=== PATIENT | female | born 1955 | race African-American/Black ===

== ENCOUNTER 2016-10-09 12:15 | Emergency (ER) | payer MEDICARE, BC ==
[2016-10-09 12:43] VITALS: PULSE 76
[2016-10-09] MEDS ORDERED: SODIUM CHLORIDE 0.9% 1,000 ML IV STA ×2 (13:44→15:40)
[2016-10-09] MEDS ORDERED: AMPICILLIN-SULBACTAM 3 GM in SODIUM CHLORIDE 0.9% 100 ML IVPB STA (13:48)
--- NOTE | 2016-10-09 13:59 | ED ---
General Adult HPI <Saeid Hilton - Last Filed: 10/09/16 14:09> - General Source: patient, RN notes reviewed Mode of arrival: wheelchair Limitations: no limitations <Piero Botello - Last Filed: 10/09/16 14:37> - General Chief complaint: Extremity Problem,Nontraumatic Stated complaint: Arm Swollen Time Seen by Provider: 10/09/16 13:29 - History of Present Illness Initial comments: 61-year-old female seen in the past medical history for dialysis, who presents emergency room today with a chief complaint of possible infection to left forearm. Does admit that recently she had a graft performed in this area just 4 days ago. Patient does admit that she's had increased swelling over the last 2 days. Does admit that it feels warm to the touch. Does admit that she's had decreased she demonstrated hand she believes due to the swelling. Patient does admit that she called her doctor advised come to the emergency room to have it checked. She denies any other complaints or symptoms at this time. Patient denies any recent fever, chills, shortness of breath, chest pain, back pain, abdominal pain, nausea or vomiting, dysuria or hematuria, constipation or diarrhea, headaches or visual changes, or any other complaints. (Piero Botello) Review of Systems ROS Other: All systems not noted in ROS Statement are negative. <Saeid Hilton - Last Filed: 10/09/16 14:09> ROS Other: All systems not noted in ROS Statement are negative. <Piero Botello - Last Filed: 10/09/16 14:37> ROS Statement: Those systems with pertinent positive or pertinent negative responses have been documented in the HPI. Past Medical History Past Medical History: Dementia, Hyperlipidemia, Hypertension, Thyroid Disorder History of Any Multi-Drug Resistant Organisms: None Reported Past Surgical History: Back Surgery, Hysterectomy Additional Past Surgical History / Comment(s): RBKA R/T DM, LEFT TOE AMPUTATION Past Psychological History: Depression Smoking Status: Former smoker Past Alcohol Use History: None Reported Past Drug Use History: None Reported <Piero Botello - Last Filed: 10/09/16 14:37> General Exam <Saeid Hilton - Last Filed: 10/09/16 14:09> Limitations: no limitations <Piero Botello - Last Filed: 10/09/16 14:37> - General Exam Comments Initial Comments: General: The patient is awake and alert, in no distress, and does not appear acutely ill. Eye: Pupils are equal, round and reactive to light, extra-ocular movements are intact. No nystagmus. There is normal conjunctiva bilaterally. No signs of icterus. Ears, nose, mouth and throat: There are moist mucous membranes and no oral lesions. Neck: The neck is supple, there is no tenderness or JVD. Cardiovascular: There is a regular rate and rhythm. No murmur, rub or gallop is appreciated. Respiratory: Lungs are clear to auscultation, respirations are non-labored, breath sounds are equal. No wheezes, stridor, rales, or rhonchi. Musculoskeletal: Normal ROM, no tenderness. Strength 5/5. Sensation intact. Pulses equal bilaterally 2+. Neurological: A&O x 3. CN II-XII intact, There are no obvious motor or sensory deficits. Coordination appears grossly intact. Speech is normal. Skin: Does have some moderate swelling to the volar aspect of the left forearm. Does have increased redness and some redness going to pass forearm up into the medial aspect of the left upper arm. Psychiatric: Cooperative, appropriate mood & affect, normal judgment. (Piero Botello) Medical Decision Making <Saeid Hilton - Last Filed: 10/09/16 14:09> <Piero Botello - Last Filed: 10/09/16 14:37> - Medical Decision Making Medical decision-making. This is a 61-year-old female who had surgery to left forearm, AV fascioletta formation for future dialysis. Surgery was 4 days ago. Today she awakened with a red warm swollen left forearm. Pain with flexion and extension of her fingers and wrist. The plan the patient case was discussed with her surgeon Dr. Smith he wants the patient sent down to the [facility] ER for evaluation management. Dr. Hilton (Saeid Hilton) [facility]. Puentes will accept the patient. Patient is aware the plan. (Piero Botello) Disposition <Saeid Hilton - Last Filed: 10/09/16 14:09> Time of Disposition: 14:20 (Transferred by EMS to [facility]) - Out of Hospital Transfer - Req. Specs Out of Hospital Transfer - Requested Specifics: Other Emergency Center ( [facility]) <Piero Botello - Last Filed: 10/09/16 14:37> Clinical Impression: Cellulitis Disposition: OTHER INSTITUTION NOT DEFINED Condition: Stable Referrals: Nonstaff,Physician [REFERRING] - 1-2 days
[2016-10-09 15:20] LABS: Glucose,Whole Blood 466 mg/dL (75-99)
[2016-10-09] MEDS ORDERED: INSULIN LISPRO (humaLOG) 300 UNIT/3 ML VIAL SQ ONE (15:39)
[2016-10-09 15:43] LABS: Basophils % (A) 1 %; CH 30.6; CHCM 30.9; Eosinophils # (A) 0.2 k/uL (0-0.7); Eosinophils % (A) 3 %; HCT 29.9 % (34.0-46.0); HDW 2.69; HGB 9.3 gm/dL (11.4-16.0); Hypochromasia Slight; Luc # (Auto) 0.14; Luc % (Auto) 2; Lymphocytes # (A) 0.7 k/uL (1.0-4.8); Lymphocytes % (A) 11 %; MCH 30.9 pg (25.0-35.0); MCHC 31.2 g/dL (31.0-37.0); MCV 99.2 fL (80.0-100.0); Mean Platelet Volume 9.1; Monocytes # (A) 0.3 k/uL (0-1.0); Monocytes % (A) 4 %; Neutrophils # (A) 4.8 k/uL (1.3-7.7); Neutrophils % (A) 79 %; RBC 3.01 m/uL (3.80-5.40); RDW 14.5 % (11.5-15.5); WBC 6.1 k/uL (3.8-10.6); WBC (Perox) 6.34
[2016-10-09 15:50] LABS: Calcium 8.6 mg/dL (8.4-10.2); Potassium 5.1 mmol/L (3.5-5.1); Total Bilirubin 0.5 mg/dL (0.2-1.3); Total Protein 5.5 g/dL (6.3-8.2)
[2016-10-09 16:10] VITALS: BP 172/99; RESP 18
[2016-10-09 16:17] VITALS: TEMP 98
[2016-10-09] MEDS ORDERED: AMPICILLIN-SULBACTAM 3 GM in SODIUM CHLORIDE 0.9% 100 ML IVPB SCH (18:00)
== END 2016-10-09 16:10 | disposition other institution (70) ==
LOC: EC 12:15
DX: T81.4XXA Infection following a procedure, initial encounter (principal); Z87.891 Personal history of nicotine dependence
CPT/HCPCS: 36415; 80053; 85025; 87040; 99284; 96365; J0295

== ENCOUNTER 2016-11-01 16:49 | Emergency (ER) | payer MEDICARE, BC ==
--- NOTE | 2016-11-01 17:18 | ED ---
Fall HPI - General Chief Complaint: Fall Stated Complaint: Fall Time Seen by Provider: 11/01/16 17:00 Source: patient, EMS, RN notes reviewed Mode of arrival: EMS - History of Present Illness Initial Comments: Patient is 61-year-old female presents to the emergency room for evaluation of fall injury. Patient states she had dialysis today. Patient states usually after dialysis she feels a little lightheaded. Patient also states she has a right prosthetic leg, so she is a little unsteady on her feet. Patient states she was going up her shelf to grab supplies and she tripped and fell hitting the left side of her head against the cabinet. Patient denies loss of consciousness. Patient states she is having 5 out of 10 headache. Patient states she is slightly dizzy. Patient denies neck pain. Patient denies parasthesias. Patient denies weakness. Patient denies unilateral weakness. Patient denies chest pain or shortness of breath. Patient denies nausea or vomiting. Patient denies any other injuries during incident. Patient states she takes Plavix daily. - Related Data Home Medications Medication Instructions Recorded Confirmed Clopidogrel [Plavix] 75 mg PO DAILY 10/09/16 11/01/16 Insulin Aspart [NovoLOG] See Protocol SQ AC-TID 10/09/16 11/01/16 Insulin Detemir [Levemir Flextouch] 25 units SQ HS 10/09/16 11/01/16 Levothyroxine Sodium [Synthroid] 75 mcg PO DAILY 10/09/16 11/01/16 Metoprolol Tartrate [Lopressor] 50 mg PO DAILY 10/09/16 11/01/16 Pantoprazole [Protonix] 40 mg PO DAILY 10/09/16 11/01/16 Pravastatin Sodium [Pravachol] 20 mg PO HS 10/09/16 11/01/16 amLODIPine [Norvasc] 10 mg PO DAILY 10/09/16 11/01/16 cloNIDine HCL 0.3 mg PO BID 10/09/16 11/01/16 predniSONE 20 mg PO DAILY 10/09/16 11/01/16 B Complex & C No.20/Folic Acid 1 mg PO DAILY 11/01/16 11/01/16 [Nephrocaps Softgel] Pregabalin [Lyrica] 75 mg PO BID 11/01/16 11/01/16 hydrALAZINE HCL [Apresoline] 25 mg PO TID 11/01/16 11/01/16 Allergies Allergy/AdvReac Type Severity Reaction Status Date / Time gabapentin Allergy Rash/Hives Verified 11/01/16 18:13 morphine Allergy Rash/Hives Verified 11/01/16 18:13 lisinopril AdvReac Cough Verified 11/01/16 17:06 Review of Systems ROS Statement: Those systems with pertinent positive or pertinent negative responses have been documented in the HPI. ROS Other: All systems not noted in ROS Statement are negative. Past Medical History Past Medical History: Dementia, Hyperlipidemia, Hypertension, Renal Disease, Thyroid Disorder History of Any Multi-Drug Resistant Organisms: MRSA Date of last positivie culture/infection: 2015 MDRO Source:: rt foot Past Surgical History: Back Surgery, Hysterectomy Additional Past Surgical History / Comment(s): RBKA R/T DM, LEFT TOE AMPUTATION Past Psychological History: Depression Smoking Status: Former smoker Past Alcohol Use History: None Reported Past Drug Use History: None Reported General Exam - General Exam Comments Initial Comments: Laying in exam room, no distress. Limitations: physical limitation General appearance: alert, in no apparent distress Head exam: Present: normocephalic, normal inspection. Absent: atraumatic ( small hematoma over left side of forehead/temporal area) Eye exam: Present: normal appearance, PERRL, EOMI Pupils: Present: normal accommodation ENT exam: Present: normal exam, mucous membranes moist, TM's normal bilaterally , normal external ear exam Neck exam: Present: normal inspection, full ROM. Absent: tenderness, lymphadenopathy Respiratory exam: Present: normal lung sounds bilaterally. Absent: respiratory distress Cardiovascular Exam: Present: regular rate, normal rhythm, normal heart sounds Extremities exam: Present: normal inspection Back exam: Present: normal inspection Neurological exam: Present: alert, oriented X3, CN II-XII intact, normal gait Expanded Patient oriented to: Present: person, place, time Speech: Present: fluid speech Cranial nerves: EOM's Intact: Normal, Facial Sensation: Normal Sensory exam: Upper Extremity Light Touch: Normal, Lower Extremity Light Touch: Normal Motor strength exam: RUE: 5, LUE: 5, RLE: 5, LLE: 5 Psychiatric exam: Present: normal affect, normal mood Skin exam: Present: warm, dry, intact, normal color. Absent: rash Course Vital Signs 11/01/16 11/01/16 11/01/16 16:55 17:50 18:41 Temperature 98.6 F 98.2 F Pulse Rate 81 75 71 Respiratory 16 18 18 Rate Blood Pressure 161/70 158/60 144/65 O2 Sat by Pulse 96 98 99 Oximetry Medical Decision Making - Medical Decision Making Patient is a 61-year-old female presents emergency room for evaluation of head injury. Brain/C-spine CT negative for any acute findings. Patient advised to take Tylenol home as needed and to follow up with primary care provider. Patient has no neuro deficits. Patient states she understands everything that was discussed with her. Return parameters discussed. Case discussed with Dr. Pal. - Radiology Data Radiology results: report reviewed, image reviewed Disposition Clinical Impression: Fall, Closed head injury Disposition: HOME SELF-CARE Condition: Good Instructions: Head Injury (ED) Additional Instructions: Tylenol as needed for headache. Ice on and off for 20 minutes at a time for the next 24-48 hours. Please follow up with primary care provider in 1-2 days. If any new symptom arises or symptoms worsen, return to ER as soon as possible. Referrals: Emma Burciaga MD [Primary Care Provider] - 1-2 days Time of Disposition: 18:20
--- NOTE | 2016-11-01 17:45 | CT ---
EXAMINATION TYPE: CT brain maximiliano head DATE OF EXAM: 11/01/2016 COMPARISON: NONE HISTORY: Right sided frontal injury. Dizziness and headache CT DLP: 1626.7 mGycm Automated exposure control for dose reduction was used. TECHNIQUE: CT scan of the head and cervical spine are performed without contrast. FINDINGS: Ventricles and sulci appear normal for age. There is no mass effect nor midline shift. Th ere is no sign of intracranial hemorrhage. The calvarium is intact. Cervical vertebra normal alignment. There is anterior fusion from C4 to C6. There is multilevel facet arthropathy with joint space narrowing. Skull base is intact. There is no evidence of a fracture. Th ere is degenerative disc space narrowing and spurring from C3 to C7. IMPRESSION: Negative CT scan of the brain. Spondylosis in the cervical spine. Previous surgery. No fracture.
[2016-11-01 17:51] VITALS: RESP 18
[2016-11-01] MEDS ORDERED: ACETAMINOPHEN TAB 500 MG TAB PO STA (18:21)
[2016-11-01 18:42] VITALS: BP 144/65; PULSE 71; TEMP 98.2
== END 2016-11-01 18:43 | disposition home or self-care (01) ==
LOC: EC 16:49
DX: S00.83XA Contusion of other part of head, initial encounter (principal); E78.5 Hyperlipidemia, unspecified; I10 Essential (primary) hypertension; E07.9 Disorder of thyroid, unspecified; Z87.891 Personal history of nicotine dependence; Z79.4 Long term (current) use of insulin; Z79.899 Other long term (current) drug therapy; Z79.52 Long term (current) use of systemic steroids; Z79.02 Long term (current) use of antithrombotics/antiplatelets; Z88.5 Allergy status to narcotic agent; Z88.8 Allergy status to other drugs, medicaments and biological substances; W01.190A Fall on same level from slipping, tripping and stumbling with subsequent striking against furniture, initial encounter
CPT/HCPCS: 70450; 72125; 99284

== ENCOUNTER → 2016-11-21 | Outpatient (CLI) | payer MEDICARE, BC | END | disposition home or self-care (01) | LOC: RADUSWWP 12:21 | PROVIDERS: ATTEND Surgery | DX: M79.602 Pain in left arm (principal); R20.8 Other disturbances of skin sensation; I77.1 Stricture of artery | CPT/HCPCS: 93923 ==

== ENCOUNTER 2017-01-10 16:26 | Inpatient (IN) | payer MEDICARE, BC ==
[2017-01-10 16:48] LABS: Glucose,Whole Blood 388 mg/dL (75-99)
[2017-01-10] MEDS ORDERED: METOCLOPRAMIDE 5 MG/ML 2 ML VIAL IVP STA (17:00)
[2017-01-10] MEDS ORDERED: SODIUM CHLORIDE 0.9% 1,000 ML IV STA (17:00)
[2017-01-10] MEDS ORDERED: HYDROmorphone 1 MG/ML 1 ML SYRINGE IVP STA (17:06)
[2017-01-10] MEDS ORDERED: hydrALAZINE HCL 20 MG/ML 1 ML VIAL IVP STA ×2 (17:09→19:20)
[2017-01-10 17:27] LABS: Basophils % (A) 1 %; CH 30.2; CHCM 31.3; Eosinophils # (A) 0.2 k/uL (0-0.7); Eosinophils % (A) 3 %; HCT 29.9 % (34.0-46.0); HDW 2.55; HGB 9.6 gm/dL (11.4-16.0); Hypochromasia Slight; Luc # (Auto) 0.12; Luc % (Auto) 2; Lymphocytes # (A) 0.6 k/uL (1.0-4.8); Lymphocytes % (A) 11 %; MCHC 32.1 g/dL (31.0-37.0); MCV 96.7 fL (80.0-100.0); Mean Platelet Volume 8.1; Monocytes # (A) 0.3 k/uL (0-1.0); Monocytes % (A) 5 %; Neutrophils % (A) 78 %; RBC 3.09 m/uL (3.80-5.40); RDW 15.8 % (11.5-15.5); VBG PH 7.38 (7.31-7.41); WBC 5.1 k/uL (3.8-10.6); WBC (Perox) 5.27
[2017-01-10 17:36] LABS: Partial Thromboplastin Time 22.5 sec (22.0-30.0); Prothrombin Time 9.8 sec (9.0-12.0)
[2017-01-10 17:37] LABS: Potassium 4.5 mmol/L (3.5-5.1); Total Bilirubin 0.6 mg/dL (0.2-1.3); Total Protein 6.6 g/dL (6.3-8.2)
--- NOTE | 2017-01-10 18:03 | XR ---
EXAMINATION TYPE: XR chest 2V DATE OF EXAM: 01/10/2017 COMPARISON: NONE HISTORY: Nausea and abdominal pain TECHNIQUE: Frontal and lateral views of the chest are obtained. FINDINGS: There is no heart failure nor confluent pneumonic infiltrate. There is right central venou s catheter with the tip in the right atrium. Costophrenic angles are clear. Bony thorax is intact. He art appears enlarged. IMPRESSION: Cardiomegaly. No acute lung disease.
--- NOTE | 2017-01-10 18:05 | XR ---
EXAMINATION TYPE: XR KUB DATE OF EXAM: 01/10/2017 COMPARISON: NONE HISTORY: Hyperglycemia TECHNIQUE: 2 views FINDINGS: There is no sign of intestinal obstruction or pneumoperitoneum. Fecal pattern is normal. Th ere are no pathologic calcifications over the kidneys. There is no sign of a mass. IMPRESSION: Nonacute abdomen.
--- NOTE | 2017-01-10 18:07 | ED ---
General Adult HPI - General Chief complaint: Recheck/Abnormal Lab/Rx Stated complaint: Hyperglycemia Time Seen by Provider: 01/10/17 16:46 Source: patient Mode of arrival: wheelchair Limitations: no limitations - History of Present Illness Initial comments: 61 years old female presented with loss of appetite she threw up multiple times today she said every time she tried to eat something she would drop in her blood pressure has been quite high initially for the last 2 days she has not been able to take her medications because of her blood pressure pills were nonicteric and poor she walked a blood pressure is 200 systolic nausea and vomiting with it for intractable and her sugar was quite high he was 450 today she is also complaining about generalized abdominal discomfort. She also concerned about her infection of the left forearm she had surgery on her left forearm and is seeing posterior its tender and is quite warm - Related Data Home Medications Medication Instructions Recorded Confirmed Clopidogrel [Plavix] 75 mg PO DAILY 10/09/16 01/10/17 Insulin Detemir [Levemir Flextouch] 25 units SQ HS 10/09/16 01/10/17 Levothyroxine Sodium [Synthroid] 75 mcg PO DAILY 10/09/16 01/10/17 Metoprolol Tartrate [Lopressor] 50 mg PO DAILY 10/09/16 01/10/17 Pantoprazole [Protonix] 40 mg PO DAILY 10/09/16 01/10/17 Pravastatin Sodium [Pravachol] 20 mg PO HS 10/09/16 01/10/17 amLODIPine [Norvasc] 10 mg PO DAILY 10/09/16 01/10/17 cloNIDine HCL 0.3 mg PO BID 10/09/16 01/10/17 predniSONE 20 mg PO DAILY 10/09/16 01/10/17 Pregabalin [Lyrica] 75 mg PO BID 11/01/16 01/10/17 hydrALAZINE HCL [Apresoline] 25 mg PO TID 11/01/16 01/10/17 DULoxetine HCL [Cymbalta] 60 mg PO DAILY 01/10/17 01/10/17 HYDROcodone/APAP 5-325MG [[place] 1 tab PO Q6HR PRN 01/10/17 01/10/17 5-325] INSULIN LISPRO (humaLOG) [HumaLOG] See Protocol SQ AC-TID PRN 01/10/17 01/10/17 QUEtiapine [SEROquel] 50 mg PO HS 01/10/17 01/10/17 Allergies Allergy/AdvReac Type Severity Reaction Status Date / Time gabapentin Allergy Rash/Hives Verified 01/10/17 16:45 morphine Allergy Rash/Hives Verified 01/10/17 16:45 lisinopril AdvReac Cough Verified 01/10/17 16:45 Review of Systems ROS Statement: Those systems with pertinent positive or pertinent negative responses have been documented in the HPI. ROS Other: All systems not noted in ROS Statement are negative. Past Medical History Past Medical History: Dementia, Hyperlipidemia, Hypertension, Renal Disease, Thyroid Disorder History of Any Multi-Drug Resistant Organisms: MRSA Date of last positivie culture/infection: 2015 MDRO Source:: rt foot Past Surgical History: Back Surgery, Hysterectomy Additional Past Surgical History / Comment(s): RBKA R/T DM, LEFT TOE AMPUTATION Past Psychological History: Depression Smoking Status: Former smoker Past Alcohol Use History: None Reported Past Drug Use History: None Reported General Exam - General Exam Comments Initial Comments: General: The patient is awake and alert, in moderate distress Skin: Skin is warm and dry and no rashes or lesions are noted. Eye: Pupils are equal, round and reactive to light, extra-ocular movements are intact; there is normal conjunctiva bilaterally. Ears, nose, mouth and throat: mucus membranes are dry, she seems dehydrated. Neck: The neck is supple, there is no tenderness. Cardiovascular: There is a regular rate and rhythm. No murmur, rub or gallop is appreciated. Respiratory: To auscultation bilateral, no wheezing no rhonchi no distress respiratory harris noticed Gastrointestinal: Soft, non-distended, non-tender abdomen without masses or organomegaly noted. There is no rebound or guarding present. Bowel sounds are unremarkable. Back: There is no tenderness to palpation in the midline. There is no obvious deformity. Musculoskeletal: Normal ROM, left forearm seems swollen, tender, erythematous Neurological: CN II-XII intact, no motor or sensory deficits noticed Psychiatric: Cooperative, appropriate mood & affect, normal judgment. Limitations: no limitations Course Vital Signs 01/10/17 01/10/17 01/10/17 16:34 17:28 18:25 Temperature 98.4 F Pulse Rate 86 86 88 Respiratory 18 18 18 Rate Blood Pressure 200/85 203/88 188/74 O2 Sat by Pulse 95 99 99 Oximetry Patient was reassessed at 1800, CBC is within normal range creatinine is absolutely elevated (renal failure. She is a dialysis patient on blood pressure still quite hard with [place] hydralazine accident dropped her blood pressure she is somewhat better as well as nausea and vomiting is concerned I think regular doctor considering her sugar is still being on a prescription for 100 number pressure is about 190 systolic and will put her in the hospital as observation so concerned about left arm swelling left arm swelling normal white count is quite count is not elevated and she is afebrile altogether started on some antibiotics for the left arm cellulitis - Reevaluation(s) Reevaluation #1: 01/10/17 18:53 considering the of possibility of the left forearm forearm and f, graft infection, wound infection will require and do the blood cultures and . grams of Rocephin 2 g IV Medical Decision Making - Lab Data Result diagrams: 01/10/17 17:10 01/10/17 17:10 Lab Results 01/10/17 01/10/17 01/10/17 Range/Units 16:45 17:10 17:10 WBC (3.8-10.6) k/uL RBC (3.80-5.40) m/uL Hgb (11.4-16.0) gm/dL Hct (34.0-46.0) % MCV (80.0-100.0) fL MCH (25.0-35.0) pg MCHC (31.0-37.0) g/dL RDW (11.5-15.5) % Plt Count (150-450) k/uL Neutrophils % % Lymphocytes % % Monocytes % % Eosinophils % % Basophils % % Neutrophils # (1.3-7.7) k/uL Lymphocytes # (1.0-4.8) k/uL Monocytes # (0-1.0) k/uL Eosinophils # (0-0.7) k/uL Basophils # (0-0.2) k/uL Hypochromasia PT (9.0-12.0) sec INR (<1.2) APTT (22.0-30.0) sec VBG pH 7.38 (7.31-7.41) VBG pCO2 48 (37-51) mmHg VBG HCO3 28 (24-28) mmol/L Sodium 138 (137-145) mmol/L Potassium 4.5 (3.5-5.1) mmol/L Chloride 98 (98-107) mmol/L Carbon Dioxide 24 (22-30) mmol/L Anion Gap 16 mmol/L BUN 36 H (7-17) mg/dL Creatinine 4.16 H (0.52-1.04) mg/dL Est GFR (MDRD) Af Amer 13 (>60 ml/min/1.73 sqM) Est GFR (MDRD) Non-Af 11 (>60 ml/min/1.73 sqM) Glucose 453 H* (74-99) mg/dL POC Glucose (mg/dL) 388 H (75-99) mg/dL POC Glu Insurance Counsel ID Olga Gallardo Plasma Lactic Acid James (0.7-2.0) mmol/L Calcium 9.0 (8.4-10.2) mg/dL Total Bilirubin 0.6 (0.2-1.3) mg/dL AST 18 (14-36) U/L ALT 27 (9-52) U/L Alkaline Phosphatase 112 (38-126) U/L Troponin I (0.000-0.034) ng/mL Total Protein 6.6 (6.3-8.2) g/dL Albumin 3.8 (3.5-5.0) g/dL Amylase 41 (30-110) U/L Lipase 49 (23-300) U/L 01/10/17 01/10/17 01/10/17 Range/Units 17:10 17:10 17:10 WBC 5.1 (3.8-10.6) k/uL RBC 3.09 L (3.80-5.40) m/uL Hgb 9.6 L (11.4-16.0) gm/dL Hct 29.9 L (34.0-46.0) % MCV 96.7 (80.0-100.0) fL MCH 31.0 (25.0-35.0) pg MCHC 32.1 (31.0-37.0) g/dL RDW 15.8 H (11.5-15.5) % Plt Count 278 (150-450) k/uL Neutrophils % 78 % Lymphocytes % 11 % Monocytes % 5 % Eosinophils % 3 % Basophils % 1 % Neutrophils # 4.0 (1.3-7.7) k/uL Lymphocytes # 0.6 L (1.0-4.8) k/uL Monocytes # 0.3 (0-1.0) k/uL Eosinophils # 0.2 (0-0.7) k/uL Basophils # 0.0 (0-0.2) k/uL Hypochromasia Slight PT (9.0-12.0) sec INR (<1.2) APTT (22.0-30.0) sec VBG pH (7.31-7.41) VBG pCO2 (37-51) mmHg VBG HCO3 (24-28) mmol/L Sodium (137-145) mmol/L Potassium (3.5-5.1) mmol/L Chloride (98-107) mmol/L Carbon Dioxide (22-30) mmol/L Anion Gap mmol/L BUN (7-17) mg/dL Creatinine (0.52-1.04) mg/dL Est GFR (MDRD) Af Amer (>60 ml/min/1.73 sqM) Est GFR (MDRD) Non-Af (>60 ml/min/1.73 sqM) Glucose (74-99) mg/dL POC Glucose (mg/dL) (75-99) mg/dL POC Glu Insurance Counsel ID Plasma Lactic Acid James 1.0 (0.7-2.0) mmol/L Calcium (8.4-10.2) mg/dL Total Bilirubin (0.2-1.3) mg/dL AST (14-36) U/L ALT (9-52) U/L Alkaline Phosphatase (38-126) U/L Troponin I <0.012 (0.000-0.034) ng/mL Total Protein (6.3-8.2) g/dL Albumin (3.5-5.0) g/dL Amylase (30-110) U/L Lipase (23-300) U/L 01/10/17 01/10/17 Range/Units 17:10 18:06 WBC (3.8-10.6) k/uL RBC (3.80-5.40) m/uL Hgb (11.4-16.0) gm/dL Hct (34.0-46.0) % MCV (80.0-100.0) fL MCH (25.0-35.0) pg MCHC (31.0-37.0) g/dL RDW (11.5-15.5) % Plt Count (150-450) k/uL Neutrophils % % Lymphocytes % % Monocytes % % Eosinophils % % Basophils % % Neutrophils # (1.3-7.7) k/uL Lymphocytes # (1.0-4.8) k/uL Monocytes # (0-1.0) k/uL Eosinophils # (0-0.7) k/uL Basophils # (0-0.2) k/uL Hypochromasia PT 9.8 (9.0-12.0) sec INR 1.0 (<1.2) APTT 22.5 (22.0-30.0) sec VBG pH (7.31-7.41) VBG pCO2 (37-51) mmHg VBG HCO3 (24-28) mmol/L Sodium (137-145) mmol/L Potassium (3.5-5.1) mmol/L Chloride (98-107) mmol/L Carbon Dioxide (22-30) mmol/L Anion Gap mmol/L BUN (7-17) mg/dL Creatinine (0.52-1.04) mg/dL Est GFR (MDRD) Af Amer (>60 ml/min/1.73 sqM) Est GFR (MDRD) Non-Af (>60 ml/min/1.73 sqM) Glucose (74-99) mg/dL POC Glucose (mg/dL) 395 H (75-99) mg/dL POC Glu Insurance Counsel ID Elida Matson Plasma Lactic Acid James (0.7-2.0) mmol/L Calcium (8.4-10.2) mg/dL Total Bilirubin (0.2-1.3) mg/dL AST (14-36) U/L ALT (9-52) U/L Alkaline Phosphatase (38-126) U/L Troponin I (0.000-0.034) ng/mL Total Protein (6.3-8.2) g/dL Albumin (3.5-5.0) g/dL Amylase (30-110) U/L Lipase (23-300) U/L Disposition Clinical Impression: Nausea and vomiting, Hypertension, Left arm cellulitis Disposition: ADMITTED IP TO THIS HOSP Condition: Good Referrals: Nonstaff,Physician [Primary Care Provider] - 1-2 days
[2017-01-10 18:10] LABS: Glucose,Whole Blood 395 mg/dL (75-99)
[2017-01-10] MEDS ORDERED: INSULIN REGULAR 100 UNIT/ML VIAL SQ ONE (18:33)
[2017-01-10] MEDS ORDERED: cefTRIAXone 2,000 MG in SODIUM CHLORIDE 0.9% 100 ML IVPB STA (18:53)
[2017-01-10] MEDS ORDERED: SODIUM CHLORIDE 0.9% 1,000 ML IV ONE (19:06)
[2017-01-10] MEDS ORDERED: HYDROcodone/APAP 5-325MG 1 EACH TAB PO PRN (19:14)
[2017-01-10] MEDS ORDERED: ONDANSETRON 4 MG/2 ML VIAL IVP PRN (19:58)
[2017-01-10] MEDS ORDERED: ACETAMINOPHEN TAB 325 MG TAB PO PRN (19:58)
[2017-01-10] MEDS ORDERED: DOCUSATE 100 MG CAP PO PRN (19:58)
[2017-01-10] MEDS ORDERED: CALCIUM CARBONATE 500 MG CHEWABLE PO PRN (19:58)
[2017-01-10] MEDS ORDERED: NALOXONE 0.4 MG/ML 1 ML VIAL IV PRN (19:58)
[2017-01-10] MEDS ORDERED: ONDANSETRON 4 MG/2 ML VIAL IVP STA (20:10)
[2017-01-10 20:32] LABS: Glucose,Whole Blood 256 mg/dL (75-99)
[2017-01-10] MEDS ORDERED: INSULIN DETEMIR 100 UNIT/ML 10 ML VIAL SQ SCH (21:00)
[2017-01-10] MEDS ORDERED: QUEtiapine 50 MG TAB PO SCH (21:00)
--- NOTE | 2017-01-10 21:02 | P.HPIM ---
History of Present Illness H&P Date: 01/10/17 Chief Complaint: Generalized weakness with nausea and vomiting This is a 61-year-old female with history of long-standing type 2 diabetes mellitus and end-stage renal disease on hemodialysis who presents with complaint of lack of energy, generalized weakness, nausea and vomiting for 2 days. Patient started hemodialysis in April 2016 via right jugular permacath. She still makes urine and urinary urinates approximately 2-3 times a day. Her package handler is Dr. Chu and she receives dialysis Sunday, last hemodialysis was on Sunday and she missed hemodialysis today. She cannot recall how much fluid was removed on Sunday. She used to get dialysis and all medical care at [facility], [place] but in September of this year moved to [place] and since then she is yet to establish care with a primary care physician in the area. She had creation of left upper extremity AV fistula in September 2016 which never matured hence she had AV graft placement in October 2016, AV graft caused steal syndrome for which she underwent vascular intervention [address] [facility], [place] where she usually gets care. Intervention was done via right groin and patient did not experience any pain or drainage or bleeding from that area. She reports that area off left AV graft he has been swollen and tender since intervention. Current symptoms started after dialysis 2 days ago, Sunday. Patient feels nauseous mostly rate by mouth intake and to up couple of times food and fluid she tried to eat. Denies any abdominal pain. She has had constipation that resolved today with enema. Patient denies any fever chills or night sweats. She denies any blood or coffee ground emesis. In the past occasionally she would have nausea between food but she was never diagnosed with gastroparesis. She denies any heartburn, dysphagia or odynophagia. No regurgitation of food or sour taste in her mouth. She had a surgery 5 days ago for which she has been placed in [place] which she stopped taking today seems she didn't feel well taking the medication. Currently her symptoms somewhat improved and she would like to try some Jell-O. She denies history of ulcers or EGD in the past. In ED and was found to have blood sugar in 400s unremarkable liver panel and normal lipase. Chest x-ray and abdominal x-ray were unremarkable. Blood pressure has been elevated. She missed hemodialysis today due to her symptoms. Other associated symptoms include dizziness in the form of room spinning when turning her head towards the right side. The symptoms been present for a long time coming and going. She had never had workup for this. She also reports tinnitus in both ears left more than the right. She denies any shortness of breath chest pain hot or cold cold intolerance. Also patient reports high blood pressure is hard to control place to several different medications. Patient was diagnosed with diabetes approximately 20 years ago and currently he is on Levemir 25 units at nighttime and sliding scale on a when necessary basis. She has multiple end organ damage from long-standing diabetes, she has diabetic nephropathy, peripheral vascular disease and neuropathy with resulting right diabetes foot infection requiring amputation 18 months ago in outside institution. At that time she was septic and intensive care unit after which she was discharged to [facility] where she spends 12 months. For unknown reasons to her and that time she was discharged on prednisone 20 mg daily which she due for dose 12 months. Recently her primary care doctor tapered off her prednisone and currently she has been off of prednisone for one month. Patient has tingling and numbness in the left foot and she was told in the past that she has diabetic neuropathy Review of Systems All systems: negative Constitutional: Reports as per HPI, Reports anorexia, Reports fatigue, Reports weakness Cardiovascular: Reports as per HPI, Reports high blood pressure, Denies chest pain Respiratory: Denies cough, Denies dyspnea Gastrointestinal: Reports as per HPI Genitourinary: Denies flank pain, Denies hematuria, Denies nocturia Musculoskeletal: Denies frequent falls, Denies gait dysfunction, Denies hot joints, Denies low back pain Integumentary: Denies rash Neurological: Reports balance difficulties, Reports burning pain, Reports paresthesias, Reports vertigo Psychiatric: Denies depression Endocrine: Reports as per HPI Past Medical History Past Medical History: Dementia, Hyperlipidemia, Hypertension, Renal Disease, Thyroid Disorder History of Any Multi-Drug Resistant Organisms: MRSA Date of last positivie culture/infection: 2015 MDRO Source:: rt foot Past Surgical History: Back Surgery, Hysterectomy Additional Past Surgical History / Comment(s): RBKA R/T DM, LEFT TOE AMPUTATION Past Psychological History: Depression Smoking Status: Former smoker Past Alcohol Use History: None Reported Past Drug Use History: None Reported Medications and Allergies Home Medications Medication Instructions Recorded Confirmed Type Clopidogrel [Plavix] 75 mg PO DAILY 10/09/16 01/10/17 History Insulin Detemir [Levemir Flextouch] 25 units SQ HS 10/09/16 01/10/17 History Levothyroxine Sodium [Synthroid] 75 mcg PO DAILY 10/09/16 01/10/17 History Metoprolol Tartrate [Lopressor] 50 mg PO DAILY 10/09/16 01/10/17 History Pantoprazole [Protonix] 40 mg PO DAILY 10/09/16 01/10/17 History Pravastatin Sodium [Pravachol] 20 mg PO HS 10/09/16 01/10/17 History amLODIPine [Norvasc] 10 mg PO DAILY 10/09/16 01/10/17 History cloNIDine HCL 0.3 mg PO BID 10/09/16 01/10/17 History predniSONE 20 mg PO DAILY 10/09/16 01/10/17 History Pregabalin [Lyrica] 75 mg PO BID 11/01/16 01/10/17 History hydrALAZINE HCL [Apresoline] 25 mg PO TID 11/01/16 01/10/17 History DULoxetine HCL [Cymbalta] 60 mg PO DAILY 01/10/17 01/10/17 History HYDROcodone/APAP 5-325MG [[place] 1 tab PO Q6HR PRN 01/10/17 01/10/17 History 5-325] INSULIN LISPRO (humaLOG) [HumaLOG] See Protocol SQ AC-TID PRN 01/10/17 01/10/17 History QUEtiapine [SEROquel] 50 mg PO HS 01/10/17 01/10/17 History Allergies Allergy/AdvReac Type Severity Reaction Status Date / Time gabapentin Allergy Rash/Hives Verified 01/10/17 16:45 morphine Allergy Rash/Hives Verified 01/10/17 16:45 lisinopril AdvReac Cough Verified 01/10/17 16:45 Physical Exam Vitals: Vital Signs Temp Pulse Resp BP Pulse Ox 01/10/17 19:56 98.6 F 94 16 164/71 96 01/10/17 18:25 88 18 188/74 99 01/10/17 17:28 86 18 203/88 99 01/10/17 16:34 98.4 F 86 18 200/85 95 Intake and Output 01/10/17 01/10/17 01/10/17 06:59 14:59 22:59 Other: Weight 81.647 kg Patient Weight 01/11/17 06:59 Weight 81.647 kg - Constitutional General appearance: cooperative, morbidly obese, no acute distress - EENT Eyes: anicteric sclerae, EOMI, PERRLA ENT: normal oropharynx - Neck Neck: no lymphadenopathy, normal ROM, no thyromegaly - Respiratory Respiratory: bilateral: CTA, negative: dullness, rales, rhonchi, wheezing - Cardiovascular Rhythm: regular Heart sounds: normal: S1, S2 - Gastrointestinal General gastrointestinal: decreased bowel sounds, no distended, no organomegaly , soft, no tenderness - Integumentary Integumentary: no rash - Neurologic Neurologic: CNII-XII intact - Musculoskeletal Musculoskeletal: strength equal bilaterally - Psychiatric Psychiatric: A&O x's 3, appropriate affect, intact judgment & insight Right groin incision well-healed without swelling erythema or drainage Left wrist AV fistula site well healed without drainage or erythema in the field Left cubital AV graft site laterally INCISION tender tense firm with no erythema or warmth and no drainage from the site thrill present Results CBC & Chem 7: 01/10/17 17:10 01/10/17 17:10 Labs: Abnormal Lab Results - Last 24 Hours (Table) 01/10/17 01/10/17 01/10/17 Range/Units 16:45 17:10 17:10 RBC 3.09 L (3.80-5.40) m/uL Hgb 9.6 L (11.4-16.0) gm/dL Hct 29.9 L (34.0-46.0) % RDW 15.8 H (11.5-15.5) % Lymphocytes # 0.6 L (1.0-4.8) k/uL BUN 36 H (7-17) mg/dL Creatinine 4.16 H (0.52-1.04) mg/dL Glucose 453 H* (74-99) mg/dL POC Glucose (mg/dL) 388 H (75-99) mg/dL 01/10/17 Range/Units 18:06 RBC (3.80-5.40) m/uL Hgb (11.4-16.0) gm/dL Hct (34.0-46.0) % RDW (11.5-15.5) % Lymphocytes # (1.0-4.8) k/uL BUN (7-17) mg/dL Creatinine (0.52-1.04) mg/dL Glucose (74-99) mg/dL POC Glucose (mg/dL) 395 H (75-99) mg/dL Chest x-ray: report reviewed, image reviewed Abdominal x-ray: report reviewed, image reviewed Thrombosis Risk Factor Assmnt - DVT/VTE Prophylaxis DVT/VTE Prophylaxis: Pharmacologic Prophylaxis ordered Assessment and Plan (1) Nausea and vomiting Narrative/Plan: Due to hyperglycemia, gastroparesis or effects of hydrocodone Also rule out bacteremia as suntans may present with symptoms this patient described Antiemetics Blood glucose control *Clear liquid diet Blood cultures Status: Acute (2) Type 2 diabetes mellitus with hyperglycemia Narrative/Plan: Restart Levemir Correction[employer] scale insulin A1c ordered in the ED diabetic teaching ajust insulin based on blood glucose and oral intake Status: Acute (3) Hypothyroidism Narrative/Plan: Continue levothyroxine Check TSH, it would be interesting to see if hypothyroidism contributes to her symptoms Status: Acute (4) End stage renal disease on dialysis Narrative/Plan: Consult nephrology Appropriate diet Start Nephrocaps Patient is appropriate which is not listed her home medication and will be further addressed by nephrology Status: Acute (5) Uncontrolled hypertension Narrative/Plan: Obviously will need to be addressed by hemodialysis and optimization of fluid stopped this We will restart list of home medications Status: Acute (6) Debility Narrative/Plan: Physical and occupational therapy ordered Increase activity as tolerated Status: Acute (7) Vertigo Narrative/Plan: Intermittent long-standing Rule out peripheral vertigo-like BPPV or even tinnitus and ear pressure Mnire disease Once feeling better may need further evaluation by ENT Status: Acute (8) Anemia Narrative/Plan: I will order iron studies SUREKHA as per nephrology Status: Acute Time with Patient: Greater than 30
[2017-01-10 21:21] LABS: Hemoglobin A1C 9.4 % (4.2-6.1)
[2017-01-10] MEDS: hydrALAZINE HCL 25 MG TAB PO SCH (21:30)
[2017-01-10] MEDS: PRAVASTATIN SODIUM 20 MG TAB PO SCH (21:31)
[2017-01-10] MEDS: cloNIDine HCL 0.1 MG TAB PO SCH (21:31)
[2017-01-10] MEDS: PREGABALIN 75 MG CAP PO SCH (21:53)
[2017-01-11 03:19] LABS: Glucose,Whole Blood 37 mg/dL (75-99)
[2017-01-11 03:45] LABS: Glucose,Whole Blood 49 mg/dL (75-99)
[2017-01-11 03:55] LABS: Glucose,Whole Blood 100 mg/dL (75-99)
[2017-01-11] MEDS: LEVOTHYROXINE 75 MCG TAB PO SCH (06:08)
[2017-01-11 07:42] LABS: Glucose,Whole Blood 138 mg/dL (75-99)
[2017-01-11] MEDS: INSULIN LISPRO (humaLOG) 300 UNIT/3 ML VIAL SQ SCH ×3 (07:49→17:19)
[2017-01-11] MEDS: amLODIPine 10 MG TAB PO SCH (07:50)
[2017-01-11] MEDS: hydrALAZINE HCL 25 MG TAB PO SCH ×3 (07:51→22:59)
[2017-01-11] MEDS: cloNIDine HCL 0.1 MG TAB PO SCH ×2 (07:51→21:49)
[2017-01-11] MEDS: CLOPIDOGREL 75 MG TAB PO SCH (07:51)
[2017-01-11] MEDS: HEPARIN SODIUM,PORCINE 5,000 UNIT/ML 1 ML VIAL SQ SCH ×2 (07:51→16:52)
[2017-01-11] MEDS: PANTOPRAZOLE 40 MG TABLET PO SCH (07:51)
[2017-01-11] MEDS: DULoxetine HCL 60 MG CAPSULE.DR PO SCH (07:51)
[2017-01-11] MEDS: METOPROLOL TARTRATE 50 MG TAB PO SCH (07:52)
[2017-01-11] MEDS: PREGABALIN 75 MG CAP PO SCH ×2 (07:53→21:57)
[2017-01-11] MEDS ORDERED: predniSONE 20 MG TAB PO SCH (09:00)
[2017-01-11 09:34] LABS: % Iron Saturation 30.6 % (20-50)
[2017-01-11 09:46] VITALS: BMI 28.3
[2017-01-11 10:08] LABS: Glucose,Whole Blood 124 mg/dL (75-99)
[2017-01-11 11:43] LABS: ABG PCO2 48 mmHg (35-45)
[2017-01-11 11:44] LABS: ABG HCO3 29 mmol/L (21-25); ABG PO2 110 mmHg (83-108); ABG TCO2 30 mmol/L (19-24)
--- NOTE | 2017-01-11 11:58 | P.NPCON ---
History of Present Illness - Reason for Consult end stage renal disease - History of Present Illness Reason for consultation: End-stage renal disease History of present illness: Patient is a 61-year-old female seen in renal consultation for end-stage renal disease. She is maintained on hemodialysis on a Sunday schedule. She has a left upper extremity AV graft which was being used but due to steal syndrome the last 2 treatments chest catheter was used. She follows with vascular surgery a lot of smoke from his. Patient has a long-standing history of insulin-dependent diabetes mellitus. She presented to the hospital with nausea and vomiting that started about 2-3 days ago. States she threw up multiple times and was also not able to keep her medications down properly. Her blood pressure was also running high but is well controlled now. Her blood sugars were also running high in the range of 400-500 and was 453 on admission. Better controlled now with most recent blood sugar 124. No fever or chills. Denies chest pain or shortness of breath. No abdominal pain. Patient appears a little lethargic at this time. She did have an ABG done this morning which wasn't suggestive of significant hypercapnic or hypoxic respiratory failure. Vital signs are stable. General: The patient appeared well nourished and normally developed. HEENT: Head exam is unremarkable. Neck is without jugular venous distension. LUNGS: Lungs are clear to auscultation and percussion. Breath sounds decreased. HEART: Rate and Rhythm are regular. First and second heart sounds normal. No murmurs, rubs or gallops. ABDOMEN: Abdominal exam reveals normal bowel sounds. Non-tender and non- distended. No evidence of peritonitis. EXTREMITITES: No clubbing, cyanosis, or edema. 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 neck cervical 4,5,6 fused, right chest permacath for dialysis. Past Psychological History: Depression Smoking Status: Former smoker Past Alcohol Use History: None Reported Past Drug Use History: None Reported - Past Family History Mother Family Medical History: Diabetes Mellitus, Hypertension Additional Family Medical History / Comment(s): colon ca Father Family Medical History: Myocardial Infarction ([place]) Medications and Allergies Home Medications Medication Instructions Recorded Confirmed Type Clopidogrel [Plavix] 75 mg PO DAILY 10/09/16 01/10/17 History Insulin Detemir [Levemir Flextouch] 25 units SQ HS 10/09/16 01/10/17 History Levothyroxine Sodium [Synthroid] 75 mcg PO DAILY 10/09/16 01/10/17 History Metoprolol Tartrate [Lopressor] 50 mg PO DAILY 10/09/16 01/10/17 History Pantoprazole [Protonix] 40 mg PO DAILY 10/09/16 01/10/17 History Pravastatin Sodium [Pravachol] 20 mg PO HS 10/09/16 01/10/17 History amLODIPine [Norvasc] 10 mg PO DAILY 10/09/16 01/10/17 History cloNIDine HCL 0.3 mg PO BID 10/09/16 01/10/17 History predniSONE 20 mg PO DAILY 10/09/16 01/10/17 History Pregabalin [Lyrica] 75 mg PO BID 11/01/16 01/10/17 History hydrALAZINE HCL [Apresoline] 25 mg PO TID 11/01/16 01/10/17 History DULoxetine HCL [Cymbalta] 60 mg PO DAILY 01/10/17 01/10/17 History HYDROcodone/APAP 5-325MG [[place] 1 tab PO Q6HR PRN 01/10/17 01/10/17 History 5-325] INSULIN LISPRO (humaLOG) [HumaLOG] See Protocol SQ AC-TID PRN 01/10/17 01/10/17 History QUEtiapine [SEROquel] 50 mg PO HS 01/10/17 01/10/17 History Allergies Allergy/AdvReac Type Severity Reaction Status Date / Time gabapentin Allergy Rash/Hives Verified 01/10/17 16:45 morphine Allergy Rash/Hives Verified 01/10/17 16:45 lisinopril AdvReac Cough Verified 01/10/17 16:45 Physical Exam Vitals: Vital Signs Temp Pulse Pulse Resp BP BP Pulse Ox 01/11/17 07:00 98.4 F 90 18 138/61 96 01/10/17 23:00 97.9 F 90 14 138/65 95 01/10/17 19:58 95 01/10/17 19:56 98.6 F 94 16 164/71 96 01/10/17 18:25 88 18 188/74 99 01/10/17 17:28 86 18 203/88 99 01/10/17 16:34 98.4 F 86 18 200/85 95 Intake and Output 01/10/17 01/11/17 01/11/17 22:59 06:59 14:59 Other: Voiding Method Bedside Commode Bedside Commode Bedpan Bedpan # Voids 0 Weight 88 kg 89.5 kg 89.5 kg Patient Weight 01/12/17 06:59 Weight 89.5 kg Results - Lab Results Most recent lab results ABG pH 7.40 (7.35-7.45) 01/11/17 11:30 ABG pCO2 48 mmHg (35-45) H 01/11/17 11:30 ABG pO2 110 mmHg (83-108) H 01/11/17 11:30 ABG HCO3 29 mmol/L (21-25) H 01/11/17 11:30 ABG O2 Saturation 98.0 % (94-97) H 01/11/17 11:30 Calcium 9.0 mg/dL (8.4-10.2) 01/10/17 17:10 01/10/17 17:10 01/10/17 17:10 Assessment and Plan Plan: Assessment: #1. End-stage renal disease maintained on hemodialysis on a Sunday schedule. Currently using right IJ catheter. She does have a left upper extremity AV graft. #2. Nausea and vomiting likely related to diabetic gastroparesis. #3. Insulin-dependent diabetes mellitus. #4. Hypertension with chronic kidney disease. Initially high due to gastroparesis flare. Now better controlled. #5. Chronic kidney disease mineral bone disease. #6. Anemia of chronic kidney disease. Iron replete. Plan: Hemodialysis today with goal 1-2 L UF since she missed yesterday's treatment. Another treatment tomorrow per her outpatient schedule. Start Aranesp. Check phosphorus level. Continue to monitor respiratory status closely. Avoid narcotics at this time. Thank you for the consultation. I will continue to follow the patient with you during her hospital stay.
[2017-01-11] MEDS ORDERED: DARBEPOETIN ALFA 40 MCG/0.4 ML SYRINGE SQ SCH (12:00)
[2017-01-11 12:54] LABS: Glucose,Whole Blood 160 mg/dL (75-99)
--- NOTE | 2017-01-11 13:05 | P.PN ---
Subjective Principal diagnosis: Nausea and vomiting Patient is a 61-year-old -[place] female with a history of long- standing diabetes mellitus type 2 insulin controlled, end-stage renal disease on dialysis Sunday, and malignant hypertension who presented with lack of energy generalized weakness and nausea and vomiting. In the ER she underwent an extensive evaluation. Her chest x-ray and abdominal x-ray were negative. She was found to have slightly elevated blood pressure on arrival. She was given a dose of IV Reglan followed by IV Zofran. Arrangements were made for her to be admitted to the general medical floor for further monitoring of her intractable nausea and vomiting. She had missed dialysis on the day of admission due to her weakness and fatigue. Her TSH was within normal limits, her CBC is consistent with anemia but no white blood cell count elevation, urine was ordered but has not been obtained. Her blood sugar was also noted to be in the 400s on admission. She received Lantus and 10 units of IV regular insulin. Her blood sugar then dropped to 37 necessitating intervention. The morning after admission she was feeling "drunk" and felt it may be due to having been given Seroquel. On record review she had not received any Seroquel but had received Reglan. Patient seen and examined at bedside. She denies any chest pain, nausea, vomiting, diarrhea, or constipation. She is still having intermittent left arm pain. She feels "drunk" she states that this is what happens when she takes Seroquel. She is concerned that she may have been given some last night but I assured her she had not. She did miss dialysis yesterday. Objective - Vital Signs Vital signs: Vital Signs Temp 98.4 F 01/11/17 07:00 Pulse 90 01/11/17 07:00 Resp 18 01/11/17 07:00 BP 138/61 01/11/17 07:00 Pulse Ox 96 01/11/17 07:00 Intake & Output 01/10/17 01/11/17 01/11/17 18:59 06:59 18:59 Weight 81.647 kg 89.5 kg 89.5 kg Other: Voiding Method Bedside Commode Bedside Commode Bedpan Bedpan # Voids 0 - Exam General: non toxic, no distress, appears at stated age Derm: no rashes, no lesions Head: atraumatic, normocephalic, symmetric Eyes: EOMI, no lid lag, anicteric sclera ENT: no post nasal drip, no thrush Mouth: no lip lesion, mucus membranes moist Cardiovascular: S1S2 reg, no murmur, positive posterior tibial pulse bilateral, Lungs: Decreased breath sounds bilateral bases, no rhonchi, no rales , no accessory muscle use Abdominal: soft, nontender to palpation, no guarding, no appreciable organomegaly Ext: no gross muscle atrophy, no edema, no contractures, healing laceration to left forearm without purulence or erythema, mild edema to left upper extremity Neuro: CN II-XI grossly intact, no focal neuro deficits Psych: Somnolent, oriented, flat affect - Labs CBC & Chem 7: 01/10/17 17:10 01/10/17 17:10 Labs: Abnormal Lab Results - Last 24 Hours (Table) 01/10/17 01/10/17 01/10/17 Range/Units 16:45 17:10 17:10 RBC 3.09 L (3.80-5.40) m/uL Hgb 9.6 L (11.4-16.0) gm/dL Hct 29.9 L (34.0-46.0) % RDW 15.8 H (11.5-15.5) % Lymphocytes # 0.6 L (1.0-4.8) k/uL ABG pCO2 (35-45) mmHg ABG pO2 (83-108) mmHg ABG HCO3 (21-25) mmol/L ABG Total CO2 (19-24) mmol/L ABG O2 Saturation (94-97) % BUN 36 H (7-17) mg/dL Creatinine 4.16 H (0.52-1.04) mg/dL Glucose 453 H* (74-99) mg/dL POC Glucose (mg/dL) 388 H (75-99) mg/dL Hemoglobin A1c (4.2-6.1) % TIBC (265-497) ug/dL 01/10/17 01/10/17 01/10/17 Range/Units 17:10 18:06 20:28 RBC (3.80-5.40) m/uL Hgb (11.4-16.0) gm/dL Hct (34.0-46.0) % RDW (11.5-15.5) % Lymphocytes # (1.0-4.8) k/uL ABG pCO2 (35-45) mmHg ABG pO2 (83-108) mmHg ABG HCO3 (21-25) mmol/L ABG Total CO2 (19-24) mmol/L ABG O2 Saturation (94-97) % BUN (7-17) mg/dL Creatinine (0.52-1.04) mg/dL Glucose (74-99) mg/dL POC Glucose (mg/dL) 395 H 256 H (75-99) mg/dL Hemoglobin A1c 9.4 H (4.2-6.1) % TIBC (265-497) ug/dL 01/11/17 01/11/17 01/11/17 Range/Units 03:09 03:23 03:48 RBC (3.80-5.40) m/uL Hgb (11.4-16.0) gm/dL Hct (34.0-46.0) % RDW (11.5-15.5) % Lymphocytes # (1.0-4.8) k/uL ABG pCO2 (35-45) mmHg ABG pO2 (83-108) mmHg ABG HCO3 (21-25) mmol/L ABG Total CO2 (19-24) mmol/L ABG O2 Saturation (94-97) % BUN (7-17) mg/dL Creatinine (0.52-1.04) mg/dL Glucose (74-99) mg/dL POC Glucose (mg/dL) 37 L 49 L 100 H (75-99) mg/dL Hemoglobin A1c (4.2-6.1) % TIBC (265-497) ug/dL 01/11/17 01/11/17 01/11/17 Range/Units 07:40 08:18 10:04 RBC (3.80-5.40) m/uL Hgb (11.4-16.0) gm/dL Hct (34.0-46.0) % RDW (11.5-15.5) % Lymphocytes # (1.0-4.8) k/uL ABG pCO2 (35-45) mmHg ABG pO2 (83-108) mmHg ABG HCO3 (21-25) mmol/L ABG Total CO2 (19-24) mmol/L ABG O2 Saturation (94-97) % BUN (7-17) mg/dL Creatinine (0.52-1.04) mg/dL Glucose (74-99) mg/dL POC Glucose (mg/dL) 138 H 124 H (75-99) mg/dL Hemoglobin A1c (4.2-6.1) % TIBC 160 L (265-497) ug/dL 01/11/17 Range/Units 11:30 RBC (3.80-5.40) m/uL Hgb (11.4-16.0) gm/dL Hct (34.0-46.0) % RDW (11.5-15.5) % Lymphocytes # (1.0-4.8) k/uL ABG pCO2 48 H (35-45) mmHg ABG pO2 110 H (83-108) mmHg ABG HCO3 29 H (21-25) mmol/L ABG Total CO2 30 H (19-24) mmol/L ABG O2 Saturation 98.0 H (94-97) % BUN (7-17) mg/dL Creatinine (0.52-1.04) mg/dL Glucose (74-99) mg/dL POC Glucose (mg/dL) (75-99) mg/dL Hemoglobin A1c (4.2-6.1) % TIBC (265-497) ug/dL Assessment and Plan Plan: #Altered mentation -Appears to be secondary to medications including high-dose IV Reglan use -Stat ABG checked and reviewed which was within normal limits with a normal pH -Await urinalysis -Avoid narcotics and sedative agents at this point in time #Diabetes mellitus with hyperglycemia on admission -Hypoglycemic episode overnight, will decrease Levemir by one half as patient still has not been tolerating a diet -Continue with blood sugar checks -Continue with sliding scale insulin -Await hemoglobin A1c #Accelerated hypertension, likely due to diabetic gastroparesis, resolved -Follow blood pressures -Continue with hydralazine, metoprolol #Intractable nausea and vomiting suspect secondary to diabetic gastroparesis -Likely benefit from outpatient gastric emptying study -Zofran as needed for nausea -Avoid any additional doses of Reglan #Anemia likely secondary to chronic renal disease -Follow CBC -Await ferritin Chronic: Dyslipidemia Hypothyroidism Peripheral vascular disease status post amputation DVT prophylaxis: Heparin Discussed with: Patient, Nursing, Dr. Chu Anticipated discharge: 24-[address]: home with home health A total of 45 minutes was spent on the care of this complex patient more than 50 % of the time was spent in counseling and care coordination.
[2017-01-11 13:09] LABS: Hemoglobin A1C 9.6 % (4.2-6.1)
--- NOTE | 2017-01-11 16:18 | P.GSCN ---
History of Present Illness History of present illness: 61-year-old female, patient has history of chronic renal failure and she is having dialysis through the right internal jugular approach from the catheter she came in with history of for nausea vomiting and high blood sugar she is been admitted recently patient had a surgery done on the left arm at [facility] for steal phenomena I was consulted for evaluation of the left arm Patient has history of hypertension diabetes chronic renal failure On examination patient was seen in her room she is having dialysis through the right IJ catheter left arm has AV fistula graft and she has bypass for steal phenomena to the left arm most likely she had a drill procedure patient has a good thrill in the graft incision is healing good at this point no surgical intervention needed patient will follow with the vascular surgeon at [facility] Past Medical History Past Medical History: Diabetes Mellitus, Dialysis, GERD/Reflux, Hyperlipidemia, Hypertension, Memory Impairment, Renal Disease, Thyroid Disorder Additional Past Medical History / Comment(s): dialysis on m,w,f History of Any Multi-Drug Resistant Organisms: MRSA Year Discovered:: 2016 MDRO Source:: rt foot Past Surgical History: Back Surgery, Hysterectomy Additional Past Surgical History / Comment(s): RBKA 01/23/16 R/T DM. neck cervical 4,5,6 fused, right chest permacath for dialysis. Past Psychological History: Depression Smoking Status: Former smoker Past Alcohol Use History: None Reported Past Drug Use History: None Reported - Past Family History Mother Family Medical History: Diabetes Mellitus, Hypertension Additional Family Medical History / Comment(s): colon ca Father Family Medical History: Myocardial Infarction ([place]) Medications and Allergies Home Medications Medication Instructions Recorded Confirmed Type Clopidogrel [Plavix] 75 mg PO DAILY 10/09/16 01/10/17 History Insulin Detemir [Levemir Flextouch] 25 units SQ HS 10/09/16 01/10/17 History Levothyroxine Sodium [Synthroid] 75 mcg PO DAILY 10/09/16 01/10/17 History Metoprolol Tartrate [Lopressor] 50 mg PO DAILY 10/09/16 01/10/17 History Pantoprazole [Protonix] 40 mg PO DAILY 10/09/16 01/10/17 History Pravastatin Sodium [Pravachol] 20 mg PO HS 10/09/16 01/10/17 History amLODIPine [Norvasc] 10 mg PO DAILY 10/09/16 01/10/17 History cloNIDine HCL 0.3 mg PO BID 10/09/16 01/10/17 History predniSONE 20 mg PO DAILY 10/09/16 01/10/17 History Pregabalin [Lyrica] 75 mg PO BID 11/01/16 01/10/17 History hydrALAZINE HCL [Apresoline] 25 mg PO TID 11/01/16 01/10/17 History DULoxetine HCL [Cymbalta] 60 mg PO DAILY 01/10/17 01/10/17 History HYDROcodone/APAP 5-325MG [[place] 1 tab PO Q6HR PRN 01/10/17 01/10/17 History 5-325] INSULIN LISPRO (humaLOG) [HumaLOG] See Protocol SQ AC-TID PRN 01/10/17 01/10/17 History QUEtiapine [SEROquel] 50 mg PO HS 01/10/17 01/10/17 History Allergies Allergy/AdvReac Type Severity Reaction Status Date / Time gabapentin Allergy Rash/Hives Verified 01/10/17 16:45 morphine Allergy Rash/Hives Verified 01/10/17 16:45 lisinopril AdvReac Cough Verified 01/10/17 16:45 Surgical - Exam Vital Signs Temp Pulse Resp BP Pulse Ox 98.4 F 86 18 200/85 95 01/10/17 16:34 01/10/17 16:34 01/10/17 16:34 01/10/17 16:34 01/10/17 16:34 Results - Labs 01/10/17 17:10 01/10/17 17:10 Abnormal Lab Results - Last 24 Hours (Table) 01/10/17 01/10/17 01/10/17 Range/Units 16:45 17:10 17:10 RBC 3.09 L (3.80-5.40) m/uL Hgb 9.6 L (11.4-16.0) gm/dL Hct 29.9 L (34.0-46.0) % RDW 15.8 H (11.5-15.5) % Lymphocytes # 0.6 L (1.0-4.8) k/uL ABG pCO2 (35-45) mmHg ABG pO2 (83-108) mmHg ABG HCO3 (21-25) mmol/L ABG Total CO2 (19-24) mmol/L ABG O2 Saturation (94-97) % BUN 36 H (7-17) mg/dL Creatinine 4.16 H (0.52-1.04) mg/dL Glucose 453 H* (74-99) mg/dL POC Glucose (mg/dL) 388 H (75-99) mg/dL Hemoglobin A1c (4.2-6.1) % TIBC (265-497) ug/dL 01/10/17 01/10/17 01/10/17 Range/Units 17:10 18:06 20:28 RBC (3.80-5.40) m/uL Hgb (11.4-16.0) gm/dL Hct (34.0-46.0) % RDW (11.5-15.5) % Lymphocytes # (1.0-4.8) k/uL ABG pCO2 (35-45) mmHg ABG pO2 (83-108) mmHg ABG HCO3 (21-25) mmol/L ABG Total CO2 (19-24) mmol/L ABG O2 Saturation (94-97) % BUN (7-17) mg/dL Creatinine (0.52-1.04) mg/dL Glucose (74-99) mg/dL POC Glucose (mg/dL) 395 H 256 H (75-99) mg/dL Hemoglobin A1c 9.4 H (4.2-6.1) % TIBC (265-497) ug/dL 01/11/17 01/11/17 01/11/17 Range/Units 03:09 03:23 03:48 RBC (3.80-5.40) m/uL Hgb (11.4-16.0) gm/dL Hct (34.0-46.0) % RDW (11.5-15.5) % Lymphocytes # (1.0-4.8) k/uL ABG pCO2 (35-45) mmHg ABG pO2 (83-108) mmHg ABG HCO3 (21-25) mmol/L ABG Total CO2 (19-24) mmol/L ABG O2 Saturation (94-97) % BUN (7-17) mg/dL Creatinine (0.52-1.04) mg/dL Glucose (74-99) mg/dL POC Glucose (mg/dL) 37 L 49 L 100 H (75-99) mg/dL Hemoglobin A1c (4.2-6.1) % TIBC (265-497) ug/dL 01/11/17 01/11/17 01/11/17 Range/Units 07:40 08:18 08:18 RBC (3.80-5.40) m/uL Hgb (11.4-16.0) gm/dL Hct (34.0-46.0) % RDW (11.5-15.5) % Lymphocytes # (1.0-4.8) k/uL ABG pCO2 (35-45) mmHg ABG pO2 (83-108) mmHg ABG HCO3 (21-25) mmol/L ABG Total CO2 (19-24) mmol/L ABG O2 Saturation (94-97) % BUN (7-17) mg/dL Creatinine (0.52-1.04) mg/dL Glucose (74-99) mg/dL POC Glucose (mg/dL) 138 H (75-99) mg/dL Hemoglobin A1c 9.6 H (4.2-6.1) % TIBC 160 L (265-497) ug/dL 01/11/17 01/11/17 01/11/17 Range/Units 10:04 11:30 12:51 RBC (3.80-5.40) m/uL Hgb (11.4-16.0) gm/dL Hct (34.0-46.0) % RDW (11.5-15.5) % Lymphocytes # (1.0-4.8) k/uL ABG pCO2 48 H (35-45) mmHg ABG pO2 110 H (83-108) mmHg ABG HCO3 29 H (21-25) mmol/L ABG Total CO2 30 H (19-24) mmol/L ABG O2 Saturation 98.0 H (94-97) % BUN (7-17) mg/dL Creatinine (0.52-1.04) mg/dL Glucose (74-99) mg/dL POC Glucose (mg/dL) 124 H 160 H (75-99) mg/dL Hemoglobin A1c (4.2-6.1) % TIBC (265-497) ug/dL Diabetes panel 01/10/17 01/10/17 01/11/17 Range/Units 17:10 17:10 08:18 Sodium 138 (137-145) mmol/L Potassium 4.5 (3.5-5.1) mmol/L Chloride 98 (98-107) mmol/L Carbon Dioxide 24 (22-30) mmol/L BUN 36 H (7-17) mg/dL Creatinine 4.16 H (0.52-1.04) mg/dL Glucose 453 H* (74-99) mg/dL Hemoglobin A1c 9.4 H 9.6 H (4.2-6.1) % Calcium 9.0 (8.4-10.2) mg/dL AST 18 (14-36) U/L ALT 27 (9-52) U/L Alkaline Phosphatase 112 (38-126) U/L Total Protein 6.6 (6.3-8.2) g/dL Albumin 3.8 (3.5-5.0) g/dL Thyroid panel 01/11/17 Range/Units 08:18 TSH 1.880 (0.465-4.680) mIU/L Calcium panel 01/10/17 01/11/17 Range/Units 17:10 08:18 Calcium 9.0 (8.4-10.2) mg/dL Phosphorus 3.8 (2.5-4.5) mg/dL Albumin 3.8 (3.5-5.0) g/dL Pituitary panel 01/10/17 01/11/17 Range/Units 17:10 08:18 Sodium 138 (137-145) mmol/L Potassium 4.5 (3.5-5.1) mmol/L Chloride 98 (98-107) mmol/L Carbon Dioxide 24 (22-30) mmol/L BUN 36 H (7-17) mg/dL Creatinine 4.16 H (0.52-1.04) mg/dL Glucose 453 H* (74-99) mg/dL Calcium 9.0 (8.4-10.2) mg/dL TSH 1.880 (0.465-4.680) mIU/L Adrenal panel 01/10/17 Range/Units 17:10 Sodium 138 (137-145) mmol/L Potassium 4.5 (3.5-5.1) mmol/L Chloride 98 (98-107) mmol/L Carbon Dioxide 24 (22-30) mmol/L BUN 36 H (7-17) mg/dL Creatinine 4.16 H (0.52-1.04) mg/dL Glucose 453 H* (74-99) mg/dL Calcium 9.0 (8.4-10.2) mg/dL Total Bilirubin 0.6 (0.2-1.3) mg/dL AST 18 (14-36) U/L ALT 27 (9-52) U/L Alkaline Phosphatase 112 (38-126) U/L Total Protein 6.6 (6.3-8.2) g/dL Albumin 3.8 (3.5-5.0) g/dL
[2017-01-11] MEDS ORDERED: HEPARIN SODIUM,PORCINE 5,000 UNIT/ML 1 ML VIAL ONE (16:50)
[2017-01-11 17:03] LABS: Glucose,Whole Blood 117 mg/dL (75-99)
[2017-01-11 20:30] LABS: Glucose,Whole Blood 250 mg/dL (75-99)
[2017-01-11] MEDS: INSULIN DETEMIR 100 UNIT/ML 10 ML VIAL SQ SCH (21:47)
[2017-01-11] MEDS: PRAVASTATIN SODIUM 20 MG TAB PO SCH (21:50)
[2017-01-12 03:08] LABS: Glucose,Whole Blood 233 mg/dL (75-99)
[2017-01-12] MEDS: HEPARIN SODIUM,PORCINE 5,000 UNIT/ML 1 ML VIAL SQ SCH ×4 (04:14→23:41)
[2017-01-12] MEDS: LEVOTHYROXINE 75 MCG TAB PO SCH (06:15)
[2017-01-12 07:16] LABS: Glucose,Whole Blood 194 mg/dL (75-99)
[2017-01-12] MEDS: PANTOPRAZOLE 40 MG TABLET PO SCH (07:32)
[2017-01-12] MEDS: INSULIN LISPRO (humaLOG) 300 UNIT/3 ML VIAL SQ SCH ×4 (07:32→21:17)
[2017-01-12] MEDS: DULoxetine HCL 60 MG CAPSULE.DR PO SCH (07:35)
[2017-01-12] MEDS: cloNIDine HCL 0.1 MG TAB PO SCH ×2 (07:35→21:12)
[2017-01-12] MEDS: amLODIPine 10 MG TAB PO SCH (07:35)
[2017-01-12] MEDS: hydrALAZINE HCL 25 MG TAB PO SCH ×3 (07:36→21:11)
[2017-01-12] MEDS: METOPROLOL TARTRATE 50 MG TAB PO SCH (07:36)
[2017-01-12] MEDS: CLOPIDOGREL 75 MG TAB PO SCH (07:36)
[2017-01-12] MEDS: PREGABALIN 75 MG CAP PO SCH ×2 (08:15→21:11)
[2017-01-12 08:21] LABS: Anisocytosis Slight; CH 30.2; CHCM 30.8; HCT 29.1 % (34.0-46.0); HDW 2.41; HGB 9.3 gm/dL (11.4-16.0); Hypochromasia Slight; MCH 31.3 pg (25.0-35.0); MCHC 31.9 g/dL (31.0-37.0); MCV 98.3 fL (80.0-100.0); Macrocytosis Slight; Mean Platelet Volume 7.7; RBC 2.96 m/uL (3.80-5.40); RDW 16.1 % (11.5-15.5); WBC 4.5 k/uL (3.8-10.6)
[2017-01-12 08:32] LABS: Calcium 8.5 mg/dL (8.4-10.2)
--- NOTE | 2017-01-12 10:19 | P.PN ---
Subjective Principal diagnosis: Nausea and vomiting Patient is a 61-year-old -[place] female with a history of long- standing diabetes mellitus type 2 insulin controlled, end-stage renal disease on dialysis Sunday, and malignant hypertension who presented with lack of energy generalized weakness and nausea and vomiting. In the ER she underwent an extensive evaluation. Her chest x-ray and abdominal x-ray were negative. She was found to have slightly elevated blood pressure on arrival. She was given a dose of IV Reglan followed by IV Zofran. Arrangements were made for her to be admitted to the general medical floor for further monitoring of her intractable nausea and vomiting. She had missed dialysis on the day of admission due to her weakness and fatigue. Her TSH was within normal limits, her CBC is consistent with anemia but no white blood cell count elevation, urine was ordered but has not been obtained. Her blood sugar was also noted to be in the 400s on admission. She received Lantus and 10 units of IV regular insulin. Her blood sugar then dropped to 37 necessitating intervention. The morning after admission she was feeling "drunk" and felt it may be due to having been given Seroquel. On record review she had not received any Seroquel but had received Reglan. Her mentation improved throughout the day. She underwent dialysis on 01/11. Her blood sugars improved and were near her baseline. Patient reports that she's been a very brittle diabetic and her blood sugars ranged from 40s to 400s at home. She is currently taking sliding scale insulin and Levemir 25 units at night. She has not seen an publicity person. She has never tried taking Levemir during the day and going to suggest this to her. Her hemoglobin A1c is 9.1 and she is aware that she needs to decrease this. I also believe that she needs to alter her sliding scale so that she is taking approximately 50% of her insulin in short acting and 50% and long acting throughout the day. Patient seen and examined at bedside. Tolerated a diet. No more nausea and vomiting. Feeling better today. Left arm pain has resolved. Objective - Vital Signs Vital signs: Vital Signs Temp 97.4 F L 01/12/17 07:00 Pulse 68 01/12/17 07:00 Resp 14 01/12/17 07:00 BP 137/63 01/12/17 07:00 Pulse Ox 100 01/12/17 07:00 Intake & Output 01/11/17 01/12/17 01/12/17 18:59 06:59 18:59 Intake Total 400 Balance 400 Weight 89.5 kg 89.5 kg Intake: Oral 400 Other: Voiding Method Bedpan Bedpan # Voids 0 0 # Bowel Movements 0 0 - Exam General: non toxic, no distress, appears at stated age Derm: no rashes, no lesions Head: atraumatic, normocephalic, symmetric Eyes: EOMI, no lid lag, anicteric sclera ENT: no post nasal drip, no thrush Mouth: no lip lesion, mucus membranes moist Cardiovascular: S1S2 reg, no murmur, positive posterior tibial pulse bilateral, Lungs: Decreased breath sounds bilateral bases, no rhonchi, no rales , no accessory muscle use Abdominal: soft, nontender to palpation, no guarding, no appreciable organomegaly Ext: no gross muscle atrophy, no edema, no contractures, healing laceration to left forearm without purulence or erythema, mild edema to left upper extremity Neuro: CN II-XI grossly intact, no focal neuro deficits Psych: Alert oriented, flat affect - Labs CBC & Chem 7: 01/12/17 07:39 01/12/17 07:39 Labs: Abnormal Lab Results - Last 24 Hours (Table) 01/11/17 01/11/17 01/11/17 Range/Units 08:18 08:18 10:04 RBC (3.80-5.40) m/uL Hgb (11.4-16.0) gm/dL Hct (34.0-46.0) % RDW (11.5-15.5) % ABG pCO2 (35-45) mmHg ABG pO2 (83-108) mmHg ABG HCO3 (21-25) mmol/L ABG Total CO2 (19-24) mmol/L ABG O2 Saturation (94-97) % Creatinine (0.52-1.04) mg/dL Glucose (74-99) mg/dL POC Glucose (mg/dL) 124 H (75-99) mg/dL Hemoglobin A1c 9.6 H (4.2-6.1) % TIBC 160 L (265-497) ug/dL 01/11/17 01/11/17 01/11/17 Range/Units 11:30 12:51 16:57 RBC (3.80-5.40) m/uL Hgb (11.4-16.0) gm/dL Hct (34.0-46.0) % RDW (11.5-15.5) % ABG pCO2 48 H (35-45) mmHg ABG pO2 110 H (83-108) mmHg ABG HCO3 29 H (21-25) mmol/L ABG Total CO2 30 H (19-24) mmol/L ABG O2 Saturation 98.0 H (94-97) % Creatinine (0.52-1.04) mg/dL Glucose (74-99) mg/dL POC Glucose (mg/dL) 160 H 117 H (75-99) mg/dL Hemoglobin A1c (4.2-6.1) % TIBC (265-497) ug/dL 01/11/17 01/12/17 01/12/17 Range/Units 20:24 03:06 07:11 RBC (3.80-5.40) m/uL Hgb (11.4-16.0) gm/dL Hct (34.0-46.0) % RDW (11.5-15.5) % ABG pCO2 (35-45) mmHg ABG pO2 (83-108) mmHg ABG HCO3 (21-25) mmol/L ABG Total CO2 (19-24) mmol/L ABG O2 Saturation (94-97) % Creatinine (0.52-1.04) mg/dL Glucose (74-99) mg/dL POC Glucose (mg/dL) 250 H 233 H 194 H (75-99) mg/dL Hemoglobin A1c (4.2-6.1) % TIBC (265-497) ug/dL 01/12/17 01/12/17 Range/Units 07:39 07:39 RBC 2.96 L (3.80-5.40) m/uL Hgb 9.3 L (11.4-16.0) gm/dL Hct 29.1 L (34.0-46.0) % RDW 16.1 H (11.5-15.5) % ABG pCO2 (35-45) mmHg ABG pO2 (83-108) mmHg ABG HCO3 (21-25) mmol/L ABG Total CO2 (19-24) mmol/L ABG O2 Saturation (94-97) % Creatinine 4.03 H (0.52-1.04) mg/dL Glucose 191 H (74-99) mg/dL POC Glucose (mg/dL) (75-99) mg/dL Hemoglobin A1c (4.2-6.1) % TIBC (265-497) ug/dL Microbiology - Last 24 Hours (Table) 01/10/17 17:10 Blood Culture - Preliminary Blood No Growth after 24 hours Assessment and Plan Plan: #Altered mentation, resolved #Diabetes mellitus with hyperglycemia on admission and hypoglycemia -A1c 9.1 -We'll switch Levemir to a.m. dosing for home -We will refer to endocrinology on discharge #Accelerated hypertension, likely due to diabetic gastroparesis, resolved -Follow blood pressures -Continue with hydralazine, metoprolol #Intractable nausea and vomiting suspect secondary to diabetic gastroparesis, resolved -Likely benefit from outpatient gastric emptying study -Zofran as needed for nausea -Avoid any additional doses of Reglan #Anemia likely secondary to chronic renal disease -Follow CBC -Await ferritin Chronic: Dyslipidemia Hypothyroidism Peripheral vascular disease status post amputation DVT prophylaxis: Heparin Discussed with: Patient, Nursing, Dr. Chu Anticipated discharge: Anticipate discharge home this afternoon after dialysis if blood sugars remain controlled for her. Anticipated discharge place: home with home health A total of 35 minutes was spent on the care of this complex patient more than 50 % of the time was spent in counseling and care coordination.
[2017-01-12 12:10] LABS: Glucose,Whole Blood 120 mg/dL (75-99)
--- NOTE | 2017-01-12 13:03 | P.PN ---
Subjective Patient is seen in follow-up for end-stage renal disease. She is maintained on hemodialysis on a Sunday schedule via permacath. The AV fistula is being used at this time due to steal syndrome. She is currently resting in bed. Blood sugars are better controlled. Nausea and vomiting have significantly improved. She admits to some burning with urination and is concerned of a UTI. Hemodynamically stable. Vital signs are stable. General: The patient appeared well nourished and normally developed. HEENT: Head exam is unremarkable. Neck is without jugular venous distension. LUNGS: Lungs are clear to auscultation and percussion. Breath sounds decreased. HEART: Rate and Rhythm are regular. First and second heart sounds normal. No murmurs, rubs or gallops. ABDOMEN: Abdominal exam reveals normal bowel sounds. Non-tender and non- distended. No evidence of peritonitis. EXTREMITITES: No clubbing, cyanosis, or edema. Objective - Vital Signs Vital signs: Vital Signs Temp 97.4 F L 01/12/17 07:00 Pulse 68 01/12/17 07:00 Resp 14 01/12/17 07:00 BP 137/63 01/12/17 07:00 Pulse Ox 100 01/12/17 07:00 Intake & Output 01/11/17 01/12/17 01/12/17 18:59 06:59 18:59 Intake Total 400 Balance 400 Weight 89.5 kg 89.5 kg Intake: Oral 400 Other: Voiding Method Bedpan Bedpan # Voids 0 0 # Bowel Movements 0 0 - Labs CBC & Chem 7: 01/12/17 07:39 01/12/17 07:39 Labs: Abnormal Lab Results - Last 24 Hours (Table) 01/11/17 01/11/17 01/11/17 Range/Units 08:18 16:57 20:24 RBC (3.80-5.40) m/uL Hgb (11.4-16.0) gm/dL Hct (34.0-46.0) % RDW (11.5-15.5) % Creatinine (0.52-1.04) mg/dL Glucose (74-99) mg/dL POC Glucose (mg/dL) 117 H 250 H (75-99) mg/dL Hemoglobin A1c 9.6 H (4.2-6.1) % 01/12/17 01/12/17 01/12/17 Range/Units 03:06 07:11 07:39 RBC 2.96 L (3.80-5.40) m/uL Hgb 9.3 L (11.4-16.0) gm/dL Hct 29.1 L (34.0-46.0) % RDW 16.1 H (11.5-15.5) % Creatinine (0.52-1.04) mg/dL Glucose (74-99) mg/dL POC Glucose (mg/dL) 233 H 194 H (75-99) mg/dL Hemoglobin A1c (4.2-6.1) % 01/12/17 01/12/17 Range/Units 07:39 12:04 RBC (3.80-5.40) m/uL Hgb (11.4-16.0) gm/dL Hct (34.0-46.0) % RDW (11.5-15.5) % Creatinine 4.03 H (0.52-1.04) mg/dL Glucose 191 H (74-99) mg/dL POC Glucose (mg/dL) 120 H (75-99) mg/dL Hemoglobin A1c (4.2-6.1) % Microbiology - Last 24 Hours (Table) 01/10/17 17:10 Blood Culture - Preliminary Blood No Growth after 24 hours Assessment and Plan Plan: Assessment: #1. End-stage renal disease maintained on hemodialysis on a Sunday schedule. Currently using right IJ catheter. She does have a left upper extremity AV graft which is currently not being used due to steal syndrome. #2. Nausea and vomiting likely related to diabetic gastroparesis. Improved. #3. Insulin-dependent diabetes mellitus. #4. Hypertension with chronic kidney disease. Initially high due to gastroparesis flare. Now better controlled. #5. Chronic kidney disease mineral bone disease. #6. Anemia of chronic kidney disease. Iron replete. Plan: Hemodialysis today with goal 1-2 L UF. Maintain Aranesp. Continue with anti-emetics. Check UA and urine culture.
[2017-01-12] MEDS ORDERED: HEPARIN SODIUM,PORCINE 5,000 UNIT/ML 1 ML VIAL ONE (13:30)
[2017-01-12 15:10] LABS: Appearance,Urine Turbid (Clear); Bacteria,Urine Moderate /hpf; Bilirubin,Urine 1+ (Negative); Glucose,Urine (UA) 2+ (Negative); Ketones,Urine Trace (Negative); Leukocyte Esterase,Urine Large (Negative); Mucus,Urine Rare /hpf; Nitrite,Urine Negative (Negative); PH, Urine 5.5 (5.0-8.0); Particle Count 29305; Protein,Urine 3+ (Negative); RBC,Urine 12 /hpf (0-5); Specific Gravity,Urine 1.019 (1.001-1.035); Squamous Epithelial Cell,Urine 8 /hpf (0-4); UA Billing (MACRO vs. MICRO) MICRO; WBC,Urine >182 /hpf (0-5)
[2017-01-12] MEDS ORDERED: LEVOFLOXACIN 750 MG TAB PO STA (15:46)
[2017-01-12 17:10] LABS: Glucose,Whole Blood 255 mg/dL (75-99)
[2017-01-12 20:57] LABS: Glucose,Whole Blood 287 mg/dL (75-99)
[2017-01-12] MEDS: INSULIN DETEMIR 100 UNIT/ML 10 ML VIAL SQ SCH (21:12)
[2017-01-12] MEDS: PRAVASTATIN SODIUM 20 MG TAB PO SCH (21:12)
[2017-01-12 22:47] VITALS: PULSE 67
[2017-01-13 02:38] LABS: Glucose,Whole Blood 86 mg/dL (75-99)
[2017-01-13 06:02] LABS: Glucose,Whole Blood 166 mg/dL (75-99)
[2017-01-13] MEDS: LEVOTHYROXINE 75 MCG TAB PO SCH (06:25)
[2017-01-13 07:33] LABS: Glucose,Whole Blood 183 mg/dL (75-99)
[2017-01-13] MEDS: INSULIN LISPRO (humaLOG) 300 UNIT/3 ML VIAL SQ SCH ×2 (07:39→12:31)
[2017-01-13] MEDS: cloNIDine HCL 0.1 MG TAB PO SCH (07:40)
[2017-01-13] MEDS: HEPARIN SODIUM,PORCINE 5,000 UNIT/ML 1 ML VIAL SQ SCH (07:40)
[2017-01-13] MEDS: PANTOPRAZOLE 40 MG TABLET PO SCH (07:40)
[2017-01-13] MEDS: amLODIPine 10 MG TAB PO SCH (07:41)
[2017-01-13] MEDS: CLOPIDOGREL 75 MG TAB PO SCH (07:41)
[2017-01-13] MEDS: DULoxetine HCL 60 MG CAPSULE.DR PO SCH (07:41)
[2017-01-13] MEDS: PREGABALIN 75 MG CAP PO SCH (07:43)
[2017-01-13 07:47] VITALS: BP 125/61; RESP 16; TEMP 97.7
[2017-01-13] MEDS: hydrALAZINE HCL 25 MG TAB PO SCH (09:40)
[2017-01-13] MEDS: METOPROLOL TARTRATE 50 MG TAB PO SCH (09:40)
--- NOTE | 2017-01-13 10:07 | P.DS ---
Providers Date of admission: 01/10/17 19:14 Expected date of discharge: 01/13/17 Attending physician: Tanner Beal MD Consults: 01/10/17 19:06 Consult Physician Stat Consulting Provider: Jc Jaramillo Consult Reason/Comments: Patient had vascular surgery on the left forearm Do you want consulting provider notified?: Yes 01/10/17 20:23 Consult Physician Routine Consulting Provider: Semaj Chu Consult Reason/Comments: ESRD, HD Do you want consulting provider notified?: Yes Primary care physician: Physician Nonstaff - Discharge Diagnosis(es) (1) Intractable vomiting with nausea Current Visit: Yes Status: Acute (2) Anemia Current Visit: Yes Status: Acute Priority: Medium (3) End stage renal disease on dialysis Current Visit: Yes Status: Acute Priority: High (4) Hypothyroidism Current Visit: Yes Status: Acute Priority: Medium (5) Type 2 diabetes mellitus with hyperglycemia Current Visit: Yes Status: Acute Priority: High (6) Uncontrolled hypertension Current Visit: Yes Status: Acute Priority: Medium Hospital Course: Patient is a 61-year-old -[place] female with a history of long- standing diabetes mellitus type 2 insulin controlled, end-stage renal disease on dialysis Sunday, and malignant hypertension who presented with lack of energy generalized weakness and nausea and vomiting. In the ER she underwent an extensive evaluation. Her chest x-ray and abdominal x-ray were negative. She was found to have slightly elevated blood pressure on arrival. She was given a dose of IV Reglan followed by IV Zofran. Arrangements were made for her to be admitted to the general medical floor for further monitoring of her intractable nausea and vomiting. She had missed dialysis on the day of admission due to her weakness and fatigue. Her TSH was within normal limits, her CBC is consistent with anemia but no white blood cell count elevation, urine was ordered but has not been obtained. Her blood sugar was also noted to be in the 400s on admission. She received Lantus and 10 units of IV regular insulin. Her blood sugar then dropped to 37 necessitating intervention. The morning after admission she was feeling "drunk" and felt it may be due to having been given Seroquel. On record review she had not received any Seroquel but had received Reglan. Her mentation improved throughout the day. She underwent dialysis on 01/11. Her blood sugars improved and were near her baseline. Patient reports that she's been a very brittle diabetic and her blood sugars ranged from 40s to 400s at home. She is currently taking sliding scale insulin and Levemir 25 units at night. She has not seen an retail cosmetics sales beauty advisor. She has never tried taking Levemir during the day and she is willing to try this on discharge. Her hemoglobin A1c is 9.1 and she is aware that she needs to decrease this. She was concerned that she may have a urinary tract infection, and urinalysis to confirm this. Were not able to obtain culture secondary to her being a dialysis patient and not creating much urine. Her blood sugars remain suboptimally controlled for her. She reports that she feels symptomatic when her blood sugar is less than 150. She developed the family life educator. She is going try to follow up with Dr. Whaley. We are actually going to decrease her Levemir slightly to prevent her from becoming glycemic. She did have critical hypoglycemia during her hospitalization with blood sugar of 37. She reports frequent nighttime awakenings with her blood sugar being this low. Despite her A1c being 9.1 her risk of hypoglycemia outweighs the risks with her A1c of 9.1. She will try moving her Levemir to the morning and take 20 units plus her sliding scale. She is going to make a log to bring with her to her primary care physician appointment and her appointment with retail cosmetics sales beauty advisor. She was doing well and her sugars were controlled. She is determined stable for discharge home. She was placed on Levaquin and will take this every 48 hours 4 doses. Patient seen and examined at bedside. No chest pain, shortness of breath, nausea, vomiting. She has chronic constipation. She is feeling better than yesterday. Vital signs reviewed and stable. General: non toxic, no distress, appears at stated age Derm: no rashes, no lesions Head: atraumatic, normocephalic, symmetric Eyes: EOMI, no lid lag, anicteric sclera ENT: no post nasal drip, no thrush Mouth: no lip lesion, mucus membranes moist Cardiovascular: S1S2 reg, no murmur, positive posterior tibial pulse left, Lungs: CTA bilateral, no rhonchi, no rales , no accessory muscle use Abdominal: soft, nontender to palpation, no guarding, no appreciable organomegaly Ext: no gross muscle atrophy, no edema, no contractures Neuro: CN II-XI grossly intact, no focal neuro deficits Psych: Alert, oriented, appropriate affect A total of 37 minutes of time were spent preparing this complex discharge summary . Pertinent Studies: Chest x-ray: Negative KUB: Negative Procedures: None Patient Condition at Discharge: Good Plan - Discharge Summary New Discharge Prescriptions: New Insulin Detemir [Levemir Flextouch] 20 units SQ QAM #5 ml Levofloxacin [Levaquin] 500 mg PO Q48H #4 tab Continue Pantoprazole [Protonix] 40 mg PO DAILY Levothyroxine Sodium [Synthroid] 75 mcg PO DAILY Clopidogrel [Plavix] 75 mg PO DAILY cloNIDine HCL 0.3 mg PO BID amLODIPine [Norvasc] 10 mg PO DAILY Metoprolol Tartrate [Lopressor] 50 mg PO DAILY Pravastatin Sodium [Pravachol] 20 mg PO HS Pregabalin [Lyrica] 75 mg PO BID hydrALAZINE HCL [Apresoline] 25 mg PO TID HYDROcodone/APAP 5-325MG [Redfield 5-325] 1 tab PO Q6HR PRN PRN Reason: Pain DULoxetine HCL [Cymbalta] 60 mg PO DAILY INSULIN LISPRO (humaLOG) [humaLOG (formulary)] See Protocol SQ AC-TID PRN PRN Reason: Blood Pressure - High Changed Insulin Detemir [Levemir Flextouch] 25 units SQ QAM #5 Discontinued predniSONE 20 mg PO DAILY QUEtiapine [SEROquel] 50 mg PO HS Discharge Medication List Clopidogrel [Plavix] 75 mg PO DAILY 10/09/16 [History] Levothyroxine Sodium [Synthroid] 75 mcg PO DAILY 10/09/16 [History] Metoprolol Tartrate [Lopressor] 50 mg PO DAILY 10/09/16 [History] Pantoprazole [Protonix] 40 mg PO DAILY 10/09/16 [History] Pravastatin Sodium [Pravachol] 20 mg PO HS 10/09/16 [History] amLODIPine [Norvasc] 10 mg PO DAILY 10/09/16 [History] cloNIDine HCL 0.3 mg PO BID 10/09/16 [History] Pregabalin [Lyrica] 75 mg PO BID 11/01/16 [History] hydrALAZINE HCL [Apresoline] 25 mg PO TID 11/01/16 [History] DULoxetine HCL [Cymbalta] 60 mg PO DAILY 01/10/17 [History] HYDROcodone/APAP 5-325MG [Redfield 5-325] 1 tab PO Q6HR PRN 01/10/17 [History] INSULIN LISPRO (humaLOG) [humaLOG (formulary)] See Protocol SQ AC-TID PRN [History] Insulin Detemir [Levemir Flextouch] 25 units SQ QAM #5 01/12/17 [Rx] Insulin Detemir [Levemir Flextouch] 20 units SQ QAM #5 ml 01/13/17 [Rx] Levofloxacin [Levaquin] 500 mg PO Q48H #4 tab 01/13/17 [Rx] Follow up Appointment(s)/Referral(s): [facility], [NON-STAFF] - As Needed Nonstaff,Physician [Primary Care Provider] - 1-2 days Amberly Whaley MD [STAFF PHYSICIAN] - 1 Week Patient Instructions/Handouts: Cellulitis (DC), Type 2 Diabetes in Adults (DC) Activity/Diet/Wound Care/Special Instructions: Renal diet, carb consistent. Small frequent meals. Activity as tolerated. Take blood sugars 3 times daily, make a log, and bring them to your appointment with your primary care provider and Dr. Whaley Please call and make follow up visits that best fit your schedule. If you Cannot make it to [place] to follow up with your family doctor please follow-up with: Ailyn Eaton MD [facility] Physician Specialty: Family Medicine Sub Specialty: pediatric medicine, geriatric medicine Practice Name: [facility] Contact Information [address] [place] [address] Discharge Disposition: HOME WITH HOME HEALTH SERVICES
[2017-01-13 12:04] LABS: Glucose,Whole Blood 259 mg/dL (75-99)
[2017-01-14] MEDS ORDERED: LEVOFLOXACIN 500 MG TAB PO SCH (16:00)
== END 2017-01-13 14:05 | disposition home health service (06) | DRG 637 ==
LOC: EC 16:26 → 4MS4W 19:14
PROVIDERS: ADMIT Hospitalist; ATTEND Hospitalist
PROC: 5A1D60Z (ICD-10-PCS; principal; 2017-01-11)
DX: E11.65 Type 2 diabetes mellitus with hyperglycemia (principal); N18.6 End stage renal disease; K31.84 Gastroparesis; E11.43 Type 2 diabetes mellitus with diabetic autonomic (poly)neuropathy; I12.0 Hypertensive chronic kidney disease with stage 5 chronic kidney disease or end stage renal disease; F03.90 Unspecified dementia, unspecified severity, without behavioral disturbance, psychotic disturbance, mood disturbance, and anxiety; E66.01 Morbid (severe) obesity due to excess calories; E11.649 Type 2 diabetes mellitus with hypoglycemia without coma; L03.114 Cellulitis of left upper limb; N39.0 Urinary tract infection, site not specified; E11.22 Type 2 diabetes mellitus with diabetic chronic kidney disease; E03.9 Hypothyroidism, unspecified; R53.81 Other malaise; R42 Dizziness and giddiness; D63.1 Anemia in chronic kidney disease; E78.5 Hyperlipidemia, unspecified; E11.21 Type 2 diabetes mellitus with diabetic nephropathy; E11.51 Type 2 diabetes mellitus with diabetic peripheral angiopathy without gangrene; H93.19 Tinnitus, unspecified ear; K59.09 Other constipation; M79.602 Pain in left arm; R41.82 Altered mental status, unspecified; T45.0X5A Adverse effect of antiallergic and antiemetic drugs, initial encounter; F32.9 Major depressive disorder, single episode, unspecified; K21.9 Gastro-esophageal reflux disease without esophagitis; Z80.0 Family history of malignant neoplasm of digestive organs; Z82.49 Family history of ischemic heart disease and other diseases of the circulatory system; Z83.3 Family history of diabetes mellitus; Z79.899 Other long term (current) drug therapy; Z79.02 Long term (current) use of antithrombotics/antiplatelets; Z99.2 Dependence on renal dialysis; Z79.4 Long term (current) use of insulin; Z88.8 Allergy status to other drugs, medicaments and biological substances; Z87.891 Personal history of nicotine dependence; Z86.14 Personal history of Methicillin resistant Staphylococcus aureus infection; Z89.511 Acquired absence of right leg below knee; Z89.422 Acquired absence of other left toe(s)
CPT/HCPCS: 36415; 36600; 71020; 74000; 80048; 80053; 81001; 82150; 82728; 82803; 82805; 83036; 83540; 83550; 83605; 83690; 84100; 84443; 84484; 85025; 85027; 85610; 85730; 87040; 90935; 96361; 96365; 96375; 96376; 99285

== ENCOUNTER → 2017-02-06 | Outpatient (CLI) | payer MEDICARE, BC ==
--- NOTE | 2017-02-14 09:27 | P.ARTDOP ---
Arterial Doppler Upper extremity arterial Doppler: Date of service: 02/06/2017 Reason for study: Assess arterial status status post left arm AV fistula. Doppler waveforms: Normal triphasic signals throughout on the right. Triphasic at the left axillary, atypical at the left brachial. Monophasic at the left radial and multiphasic at the left ulnar. Digital plethysmography waveforms on the right are normal. On the left they are essentially flat line. Pressure measurements were not done due to the above findings. Impression: Severe loss of pressure at the left hand secondary either to in for brachial obstructive process or more likely steal phenomenon from AV fistula. Clinical correlation recommended.
== END | disposition home or self-care (01) ==
LOC: RADUSWWP 12:21
PROVIDERS: ATTEND Surgery Vascular Surgery
DX: T82.7XXD Infection and inflammatory reaction due to other cardiac and vascular devices, implants and grafts, subsequent encounter (principal); Z98.890 Other specified postprocedural states
CPT/HCPCS: 93922

== ENCOUNTER 2017-03-11 09:11 | Emergency (ER) | payer MEDICARE, BC, OTHER ==
[2017-03-11] MEDS ORDERED: MECLIZINE 12.5 MG TAB PO STA (09:32)
--- NOTE | 2017-03-11 10:07 | ED ---
Dizziness HPI - General Chief Complaint: Dizziness Stated Complaint: DIZZINESS Time Seen by Provider: 03/11/17 09:32 Source: patient, RN notes reviewed Mode of arrival: wheelchair Limitations: no limitations - History of Present Illness Initial Comments: This is a 61-year-old female with a possible history of vertigo in the past also is a dialysis patient states she had the onset of dizziness about 2 AM. She states she woke up feeling dizzy and increases with straining her head left- to-right or up and down. It did get better but when she woke up this morning at 732 recurrence of the dizziness is worse with looking up and down her left and right. She has no focal weakness she heard some vague rushing sound in her left ear she also notes her blood sugar was elevated at 375 this morning she did not take her insulin yesterday due to some low readings that she had. She denies any overt fevers chills nausea vomiting sweats at this time she did have a recent upper respiratory infection but week ago. MD Complaint: dizziness - Related Data Home Medications Medication Instructions Recorded Confirmed Levothyroxine Sodium [Synthroid] 75 mcg PO DAILY 10/09/16 03/11/17 Metoprolol Tartrate [Lopressor] 50 mg PO HS 10/09/16 03/11/17 Pantoprazole [Protonix] 40 mg PO DAILY 10/09/16 03/11/17 Pravastatin Sodium [Pravachol] 20 mg PO HS 10/09/16 03/11/17 cloNIDine HCL 0.3 mg PO BID 10/09/16 03/11/17 hydrALAZINE HCL [Apresoline] 25 mg PO TID 11/01/16 03/11/17 DULoxetine HCL [Cymbalta] 60 mg PO DAILY 01/10/17 03/11/17 HYDROcodone/APAP 5-325MG [Continental 1 tab PO Q6HR PRN 01/10/17 03/11/17 5-325] INSULIN LISPRO (humaLOG) [humaLOG] See Protocol SQ AC-TID PRN 01/10/17 03/11/17 amLODIPine [Norvasc] 10 mg PO DAILY 02/20/17 03/11/17 Calcium Acetate [Phoslo] 667 mg PO TID 03/11/17 03/11/17 Clopidogrel [Plavix] 75 mg PO DAILY 03/11/17 03/11/17 Insulin Detemir [Levemir Flextouch] 25 units SQ QAM 03/11/17 03/11/17 Rosio-Thomas 1 tab PO DAILY 03/11/17 03/11/17 Previous Rx's Medication Instructions Recorded Meclizine [Antivert] 25 mg PO TID #20 tab 03/11/17 Allergies Allergy/AdvReac Type Severity Reaction Status Date / Time gabapentin Allergy Rash/Hives Verified 03/11/17 10:04 lisinopril AdvReac Cough Verified 03/11/17 10:04 Review of Systems ROS Statement: Those systems with pertinent positive or pertinent negative responses have been documented in the HPI. ROS Other: All systems not noted in ROS Statement are negative. 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 neck cervical 4,5,6 fused, right chest permacath for dialysis. Past Anesthesia/Blood Transfusion Reactions: No Reported Reaction Past Psychological History: No Psychological Hx Reported, Depression Smoking Status: Former smoker Past Alcohol Use History: None Reported Past Drug Use History: None Reported - Past Family History Mother Family Medical History: Diabetes Mellitus, Hypertension Additional Family Medical History / Comment(s): colon ca Father Family Medical History: Myocardial Infarction ([place]) General Exam - General Exam Comments Initial Comments: This a well-developed well-nourished awake alert oriented 3 female Limitations: no limitations General appearance: alert, in no apparent distress Head exam: Present: atraumatic, normocephalic, normal inspection Eye exam: Present: normal appearance, PERRL, EOMI. Absent: scleral icterus, conjunctival injection, periorbital swelling ENT exam: Present: normal exam, mucous membranes moist Neck exam: Present: normal inspection. Absent: tenderness, meningismus, lymphadenopathy Respiratory exam: Present: normal lung sounds bilaterally. Absent: respiratory distress, wheezes, rales, rhonchi, stridor Cardiovascular Exam: Present: regular rate, normal rhythm, normal heart sounds. Absent: systolic murmur, diastolic murmur, rubs, gallop, clicks GI/Abdominal exam: Present: soft, normal bowel sounds. Absent: distended, tenderness, guarding, rebound, rigid Extremities exam: Present: full ROM, normal capillary refill, other (Below the knee amputation on the right the patient's fistula on the left upper extremity appears be functioning. A thrill is identified.). Absent: tenderness, pedal edema, joint swelling, calf tenderness Back exam: Present: normal inspection Neurological exam: Present: alert, oriented X3, CN II-XII intact Psychiatric exam: Present: normal affect, normal mood Skin exam: Present: warm, dry, intact, normal color. Absent: rash Course Vital Signs 03/11/17 03/11/17 09:13 11:37 Temperature 97.2 F L Pulse Rate 62 61 Respiratory 18 16 Rate Blood Pressure 194/76 177/63 O2 Sat by Pulse 100 95 Oximetry EKG Findings - EKG Results: EKG: interpreted by AUDREY LOUIS (EKG shows normal sinus rhythm a 62 appear 192 QRS 84 QT since QTC of 460/466 this is a normal-appearing EKG.), sinus rhythm, normal axis, normal QRS, normal ST/T, no acute changes Medical Decision Making - Medical Decision Making Patient is feeling much improved after the treatment that was rendered. She is in stable condition for discharge she will continue with her dialysis as planned she'll be given a prescription for Antivert. The presentation is consistent with benign positional vertigo - Lab Data Result diagrams: 03/11/17 10:20 03/11/17 10:20 Lab Results 03/11/17 03/11/17 03/11/17 Range/Units 10:20 10:20 10:20 WBC 3.7 L (3.8-10.6) k/uL RBC 3.94 (3.80-5.40) m/uL Hgb 12.4 D (11.4-16.0) gm/dL Hct 41.6 (34.0-46.0) % MCV 105.5 H D (80.0-100.0) fL MCH 31.5 (25.0-35.0) pg MCHC 29.9 L (31.0-37.0) g/dL RDW 17.2 H (11.5-15.5) % Plt Count 192 (150-450) k/uL Neutrophils % 73 % Lymphocytes % 14 % Monocytes % 6 % Eosinophils % 3 % Basophils % 1 % Neutrophils # 2.7 (1.3-7.7) k/uL Lymphocytes # 0.5 L (1.0-4.8) k/uL Monocytes # 0.2 (0-1.0) k/uL Eosinophils # 0.1 (0-0.7) k/uL Basophils # 0.0 (0-0.2) k/uL Hypochromasia Marked Anisocytosis Slight Macrocytosis Moderate Sodium 137 (137-145) mmol/L Potassium 4.9 (3.5-5.1) mmol/L Chloride 101 (98-107) mmol/L Carbon Dioxide 24 (22-30) mmol/L Anion Gap 12 mmol/L BUN 36 H (7-17) mg/dL Creatinine 5.89 H* (0.52-1.04) mg/dL Est GFR (MDRD) Af Amer 9 (>60 ml/min/1.73 sqM) Est GFR (MDRD) Non-Af 7 (>60 ml/min/1.73 sqM) Glucose 320 H (74-99) mg/dL POC Glucose (mg/dL) (75-99) mg/dL POC Glu Sports Marketer ID Calcium 9.2 (8.4-10.2) mg/dL Magnesium 2.1 (1.6-2.3) mg/dL Total Bilirubin 0.5 (0.2-1.3) mg/dL AST 25 (14-36) U/L ALT 28 (9-52) U/L Alkaline Phosphatase 112 (38-126) U/L Total Creatine Kinase 50 (30-135) U/L CK-MB (CK-2) 0.7 (0.0-2.4) ng/mL CK-MB (CK-2) Rel Index 1.4 Troponin I <0.012 (0.000-0.034) ng/mL Total Protein 6.8 (6.3-8.2) g/dL Albumin 3.7 (3.5-5.0) g/dL 03/11/17 Range/Units 12:12 WBC (3.8-10.6) k/uL RBC (3.80-5.40) m/uL Hgb (11.4-16.0) gm/dL Hct (34.0-46.0) % MCV (80.0-100.0) fL MCH (25.0-35.0) pg MCHC (31.0-37.0) g/dL RDW (11.5-15.5) % Plt Count (150-450) k/uL Neutrophils % % Lymphocytes % % Monocytes % % Eosinophils % % Basophils % % Neutrophils # (1.3-7.7) k/uL Lymphocytes # (1.0-4.8) k/uL Monocytes # (0-1.0) k/uL Eosinophils # (0-0.7) k/uL Basophils # (0-0.2) k/uL Hypochromasia Anisocytosis Macrocytosis Sodium (137-145) mmol/L Potassium (3.5-5.1) mmol/L Chloride (98-107) mmol/L Carbon Dioxide (22-30) mmol/L Anion Gap mmol/L BUN (7-17) mg/dL Creatinine (0.52-1.04) mg/dL Est GFR (MDRD) Af Amer (>60 ml/min/1.73 sqM) Est GFR (MDRD) Non-Af (>60 ml/min/1.73 sqM) Glucose (74-99) mg/dL POC Glucose (mg/dL) 256 H (75-99) mg/dL POC Glu Sports Marketer ID Elida Thompson Calcium (8.4-10.2) mg/dL Magnesium (1.6-2.3) mg/dL Total Bilirubin (0.2-1.3) mg/dL AST (14-36) U/L ALT (9-52) U/L Alkaline Phosphatase (38-126) U/L Total Creatine Kinase (30-135) U/L CK-MB (CK-2) (0.0-2.4) ng/mL CK-MB (CK-2) Rel Index Troponin I (0.000-0.034) ng/mL Total Protein (6.3-8.2) g/dL Albumin (3.5-5.0) g/dL - Radiology Data Radiology results: report reviewed (I did review the imaging and reports no acute findings are seen), image reviewed Disposition Clinical Impression: Benign positional vertigo Disposition: HOME SELF-CARE Condition: Good Instructions: Dizziness (ED), Benign Paroxysmal Positional Vertigo (ED) Prescriptions: Meclizine [Antivert] 25 mg PO TID #20 tab Referrals: Ailyn Eaton MD [Primary Care Provider] - 1-2 days
[2017-03-11 10:54] LABS: Calcium 9.2 mg/dL (8.4-10.2); Magnesium 2.1 mg/dL (1.6-2.3); Potassium 4.9 mmol/L (3.5-5.1); Total Bilirubin 0.5 mg/dL (0.2-1.3); Total Protein 6.8 g/dL (6.3-8.2)
[2017-03-11 11:04] LABS: Creatine Kinase 50 U/L (30-135)
[2017-03-11 11:07] LABS: Anisocytosis Slight; Basophils % (A) 1 %; CH 31.4; CHCM 29.9; Eosinophils # (A) 0.1 k/uL (0-0.7); Eosinophils % (A) 3 %; HCT 41.6 % (34.0-46.0); HDW 2.45; HGB 12.4 gm/dL (11.4-16.0); Hypochromasia Marked; Luc # (Auto) 0.08; Luc % (Auto) 2; Lymphocytes # (A) 0.5 k/uL (1.0-4.8); Lymphocytes % (A) 14 %; MCH 31.5 pg (25.0-35.0); MCHC 29.9 g/dL (31.0-37.0); Macrocytosis Moderate; Mean Platelet Volume 8.2; Monocytes # (A) 0.2 k/uL (0-1.0); Monocytes % (A) 6 %; Neutrophils # (A) 2.7 k/uL (1.3-7.7); Neutrophils % (A) 73 %; RBC 3.94 m/uL (3.80-5.40); RDW 17.2 % (11.5-15.5); WBC 3.7 k/uL (3.8-10.6); WBC (Perox) 3.89
[2017-03-11 11:08] LABS: MCV 105.5 fL (80.0-100.0)
[2017-03-11 11:17] LABS: Creatine Kinase MB 0.7 ng/mL (0.0-2.4); Troponin I <0.012 ng/mL (0.000-0.034)
[2017-03-11 11:38] VITALS: RESP 16
--- NOTE | 2017-03-11 11:39 | CT ---
EXAMINATION TYPE: CT brain wo con DATE OF EXAM: 03/11/2017 COMPARISON: Previous study dated 11/01/2016 HISTORY: Dizziness CT DLP: 1054.2 mGycm Automated exposure control for dose reduction was used. FINDINGS: Central structures are midline. There is no evidence of hydrocephalus. No acute focal lesion, mass ef fect or midline shift is seen. I do not see evidence of intracranial blood. There is some mucosal thickening involving the right maxillary sinus. The remainder the paranasal sin uses and mastoids are clear. IMPRESSION: 1. NO ACUTE INTRACRANIAL ABNORMALITY. 2. MINIMAL, RIGHT MAXILLARY SINUS MUCOSAL DISEASE.
--- NOTE | 2017-03-11 11:40 | XR ---
EXAMINATION TYPE: XR chest 2V DATE OF EXAM: 03/11/2017 HISTORY: cough. REFERENCE: Previous study dated 01/10/2017. FINDINGS: There is a right subclavian catheter in place. Its tip is in the right atrium. The heart is mildly enlarged. The lungs are clear. Pleural spaces are clear. IMPRESSION: MILD CARDIOMEGALY.
[2017-03-11 12:40] LABS: Glucose,Whole Blood 256 mg/dL (75-99)
[2017-03-11 13:41] VITALS: BP 170/74; PULSE 80; TEMP 97.9
== END 2017-03-11 13:15 | disposition home or self-care (01) ==
LOC: EC 09:11
DX: H81.12 Benign paroxysmal vertigo, left ear (principal); F32.9 Major depressive disorder, single episode, unspecified; E11.9 Type 2 diabetes mellitus without complications; K21.9 Gastro-esophageal reflux disease without esophagitis; E78.5 Hyperlipidemia, unspecified; I10 Essential (primary) hypertension; E07.9 Disorder of thyroid, unspecified; Z99.2 Dependence on renal dialysis; Z86.14 Personal history of Methicillin resistant Staphylococcus aureus infection; Z87.891 Personal history of nicotine dependence; Z88.8 Allergy status to other drugs, medicaments and biological substances; Z79.4 Long term (current) use of insulin; Z79.02 Long term (current) use of antithrombotics/antiplatelets; Z79.899 Other long term (current) drug therapy
CPT/HCPCS: 36415; 70450; 71020; 80053; 82550; 82553; 83735; 84484; 85025; 93005; 99284

== ENCOUNTER 2017-04-26 11:55 | Emergency (ER) | payer MEDICARE, BC ==
[2017-04-26 12:13] VITALS: RESP 16
[2017-04-26] MEDS ORDERED: HYDROcodone/APAP 10-325MG 1 EACH TAB PO ONE (14:54)
--- NOTE | 2017-04-26 14:56 | ED ---
Extremity Problem HPI - General Chief complaint: Extremity Problem,Nontraumatic Stated complaint: rt hand pain and swelling Time Seen by Provider: 04/26/17 12:29 Source: patient, family Mode of arrival: wheelchair Limitations: physical limitation - History of Present Illness Initial comments: 61-year-old [place] female with past medical history of recurrent left arm surgeries for dialysis catheter and fistula placement presented for evaluation of left hand pain. She states that her last seizure was on April [address] Smith however since then she has been continuing to have pain in the hand. She called her primary care physician today concerning this pain and she was advised to come to the ED for further evaluation. She states that her hand is been held in contracture from the PIP distally and there is pain with passive extension of the digits. She denies any other associated symptoms. - Related Data Home Medications Medication Instructions Recorded Confirmed Levothyroxine Sodium [Synthroid] 75 mcg PO DAILY 10/09/16 04/26/17 Metoprolol Tartrate [Lopressor] 50 mg PO HS 10/09/16 04/26/17 Pantoprazole [Protonix] 40 mg PO DAILY 10/09/16 04/26/17 Pravastatin Sodium [Pravachol] 20 mg PO HS 10/09/16 04/26/17 cloNIDine HCL 0.3 mg PO BID 10/09/16 04/26/17 hydrALAZINE HCL [Apresoline] 25 mg PO TID 11/01/16 04/26/17 DULoxetine HCL [Cymbalta] 60 mg PO DAILY 01/10/17 04/26/17 INSULIN LISPRO (humaLOG) [humaLOG] See Protocol SQ AC-TID PRN 01/10/17 04/26/17 amLODIPine [Norvasc] 10 mg PO DAILY 02/20/17 04/26/17 Calcium Acetate [Phoslo] 667 mg PO TID 03/11/17 04/26/17 Clopidogrel [Plavix] 75 mg PO DAILY 03/11/17 04/26/17 Insulin Detemir [Levemir Flextouch] 25 units SQ QAM 03/11/17 04/26/17 Rosio-Thomas 1 tab PO DAILY 03/11/17 04/26/17 Meclizine [Antivert] 25 mg PO TID PRN 04/26/17 04/26/17 Previous Rx's Medication Instructions Recorded HYDROcodone/APAP 5-325MG [Tibbie 1 - 2 tab PO Q6HR PRN #20 tab 04/26/17 5-325] Allergies Allergy/AdvReac Type Severity Reaction Status Date / Time gabapentin Allergy Rash/Hives Verified 04/26/17 13:18 lisinopril AdvReac Cough Verified 04/26/17 13:18 Review of Systems ROS Statement: Those systems with pertinent positive or pertinent negative responses have been documented in the HPI. ROS Other: All systems not noted in ROS Statement are negative. Constitutional: Denies: fever, chills Eyes: Denies: eye pain, eye discharge ENT: Denies: ear pain, throat pain, dental pain, hearing loss Respiratory: Denies: cough, dyspnea, wheezes Cardiovascular: Denies: chest pain, palpitations, dyspnea on exertion, syncope Endocrine: Denies: fatigue, polydipsia, polyuria Gastrointestinal: Denies: abdominal pain, nausea, vomiting Genitourinary: Denies: urgency, dysuria Musculoskeletal: Reports: arthralgia (Pain to the PIP and DIP of the left hand digits 1 through 5.). Denies: back pain, myalgia Skin: Denies: rash, lesions Neurological: Denies: headache, weakness Psychiatric: Denies: anxiety, depression Hematological/Lymphatic: Denies: easy bleeding, easy bruising Past Medical History Past Medical History: Diabetes Mellitus, Dialysis, GERD/Reflux, Hyperlipidemia, Hypertension, Memory Impairment, Renal Disease, Thyroid Disorder Additional Past Medical History / Comment(s): dialysis on m,w,f History of Any Multi-Drug Resistant Organisms: MRSA Date of last positivie culture/infection: 2015 MDRO Source:: rt foot Past Surgical History: Back Surgery, Hysterectomy Additional Past Surgical History / Comment(s): RBKA 01/23/16 R/T DM. neck cervical 4,5,6 fused, right chest permacath for dialysis. graft tie off 2016 Past Anesthesia/Blood Transfusion Reactions: No Reported Reaction Past Psychological History: No Psychological Hx Reported, Depression Smoking Status: Former smoker Past Alcohol Use History: None Reported Past Drug Use History: None Reported - Past Family History Mother Family Medical History: Diabetes Mellitus, Hypertension Additional Family Medical History / Comment(s): colon ca Father Family Medical History: Myocardial Infarction ([place]) General Exam Limitations: physical limitation General appearance: alert, in no apparent distress Head exam: Present: atraumatic, normocephalic, normal inspection Eye exam: Present: normal appearance, PERRL, EOMI. Absent: scleral icterus, conjunctival injection, periorbital swelling ENT exam: Present: normal exam, mucous membranes moist Neck exam: Present: normal inspection. Absent: tenderness, meningismus, lymphadenopathy Respiratory exam: Present: normal lung sounds bilaterally. Absent: respiratory distress, wheezes, rales, rhonchi, stridor Cardiovascular Exam: Present: regular rate, normal rhythm, normal heart sounds. Absent: systolic murmur, diastolic murmur, rubs, gallop, clicks GI/Abdominal exam: Present: soft, normal bowel sounds. Absent: distended, tenderness, guarding, rebound, rigid Rectal exam: Present: deferred Extremities exam: Present: tenderness (To the PIP and DIP with passive or active extension of the digits. Capillary refill is intact and she has normal sensation to the digits. Flexion is maintained.), normal capillary refill. Absent: normal inspection, full ROM, pedal edema, joint swelling, calf tenderness Back exam: Present: normal inspection, full ROM Neurological exam: Present: alert, oriented X3, CN II-XII intact Psychiatric exam: Present: normal affect, normal mood Skin exam: Present: warm, dry, intact, normal color. Absent: rash Course Vital Signs 04/26/17 04/26/17 12:07 15:10 Temperature 98.5 F 97.8 F Pulse Rate 61 64 Respiratory 16 16 Rate Blood Pressure 169/74 164/88 O2 Sat by Pulse 100 97 Oximetry Medical Decision Making - Medical Decision Making 61-year-old Afro-Australian female with past medical history as noted above presented for evaluation of pain to the left hand. She states that the pain is chronic and ongoing for some time however worsening over the last few weeks since her recent procedure. She called her primary care physician Dr. Eaton today Center to the ED for further treatment and evaluation. Patient's fingers are held in contracture with flexion maintained however inability to actively or passively extend the fingers without significant amount pain. Capillary refill is maintained, distal pulses are intact, sensation is intact and she is able to move the fingers. Discussed case with Dr. Eaton her primary care physician who stated that she had no other concerns for the patient and that she hasn't seen her for a couple months. Dr. Smith was also called who performed all of her vascular procedures and he stated that this was her baseline and that she would need physical therapy. The patient was informed this result and that she would be discharged with pain prescriptions and advised to follow-up with Dr. Eaton to arrange outpatient physical therapy. Further advised to return to this facility if his symptoms should worsen or persist. The patient acknowledged an understanding of all formation provided and agreed with this plan of care. Disposition Clinical Impression: Left hand pain Disposition: HOME SELF-CARE Condition: Stable Instructions: Arthralgia (ED) Additional Instructions: Please use medication as discussed. Please follow up with family doctor if symptoms have not improved over the next two days. Please return to the emergency room if your symptoms increase or worsen or for any other concerns. Prescriptions: HYDROcodone/APAP 5-325MG [Tibbie 5-325] 1 - 2 tab PO Q6HR PRN #20 tab PRN Reason: Analgesia Referrals: Ailyn Eaton MD [Primary Care Provider] - 1-2 days Time of Disposition: 14:56
[2017-04-26 15:12] VITALS: BP 164/88; PULSE 64; TEMP 97.8
== END 2017-04-26 15:04 | disposition home or self-care (01) ==
LOC: EC 11:55
DX: M79.642 Pain in left hand (principal); M79.89 Other specified soft tissue disorders; E11.9 Type 2 diabetes mellitus without complications; K21.9 Gastro-esophageal reflux disease without esophagitis; E78.5 Hyperlipidemia, unspecified; I10 Essential (primary) hypertension; E07.9 Disorder of thyroid, unspecified; Z99.2 Dependence on renal dialysis; Z86.14 Personal history of Methicillin resistant Staphylococcus aureus infection; Z87.891 Personal history of nicotine dependence; Z88.8 Allergy status to other drugs, medicaments and biological substances; Z79.4 Long term (current) use of insulin; Z79.02 Long term (current) use of antithrombotics/antiplatelets; Z79.899 Other long term (current) drug therapy
CPT/HCPCS: 99283

== ENCOUNTER 2017-06-07 13:19 | Day surgery (SDC) | payer MEDICARE, BC ==
[2017-06-05 09:11] VITALS: BMI 28.5
[~2017-06-07 13:19] MED LIST: DEXAMETHASONE SOD PHOSPHATE 10 MG/ML 1 ML VIAL IV ONE; HEPARIN SODIUM,PORCINE 5,000 UNIT/ML 1 ML VIAL SQ ONE; LACTATED RINGERS 1,000 ML IV SCH; ONDANSETRON 4 MG/2 ML VIAL IVP ONE; ceFAZolin IN SWFI 2 GM/20 ML SYRINGE IVP ONE
[2017-06-07 13:47] LABS: Glucose,Whole Blood 187 mg/dL (75-99)
[2017-06-07 13:56] LABS: Anisocytosis Slight; Basophils % (A) 1 %; Eosinophils # (A) 0.1 k/uL (0-0.7); Eosinophils % (A) 2 %; HCT 37.4 % (34.0-46.0); HGB 11.7 gm/dL (11.4-16.0); Hypochromasia Slight; Lymphocytes # (A) 1.3 k/uL (1.0-4.8); Lymphocytes % (A) 23 %; MCH 30.7 pg (25.0-35.0); MCHC 31.4 g/dL (31.0-37.0); MCV 97.6 fL (80.0-100.0); Macrocytosis Slight; Mean Platelet Volume 7.9; Monocytes # (A) 0.3 k/uL (0-1.0); Monocytes % (A) 6 %; Neutrophils # (A) 3.6 k/uL (1.3-7.7); Neutrophils % (A) 66 %; Platelet Count 236 k/uL (150-450); RBC 3.83 m/uL (3.80-5.40); RDW 17.1 % (11.5-15.5); WBC 5.5 k/uL (3.8-10.6)
[2017-06-07 14:11] LABS: Albumin 3.8 g/dL (3.5-5.0); Potassium 4.2 mmol/L (3.5-5.1); Total Bilirubin 0.5 mg/dL (0.2-1.3); Total Protein 6.6 g/dL (6.3-8.2)
[2017-06-07 15:24] LABS: Glucose,Whole Blood 124 mg/dL (75-99)
[2017-06-07 16:16] LABS: Glucose,Whole Blood 113 mg/dL (75-99)
[2017-06-07] MEDS ORDERED: DEXTROSE 50%-WATER 50 ML SYRINGE IVP ONE (17:34)
[2017-06-07 17:43] LABS: Glucose,Whole Blood 64 mg/dL (75-99)
[2017-06-07] MEDS ORDERED: fentaNYL (PF) 50 MCG/ML 2 ML AMP ONE (17:51)
[2017-06-07] MEDS ORDERED: KETAMINE 10 MG/ML 20 ML VIAL ONE (17:51)
[2017-06-07] MEDS ORDERED: MIDAZOLAM 2 MG/2 ML VIAL ONE (17:51)
[2017-06-07] MEDS ORDERED: LIDOCAINE 1% INJ 10MG/ML (20 ML MDV) ONE (17:51)
[2017-06-07] MEDS ORDERED: PROPOFOL 10 MG/ML 20 ML VIAL IV ONE (17:51)
[2017-06-07] MEDS ORDERED: BUPIVACAINE (PF) 0.25% 30 ML VIAL SQ ONE (18:21)
[2017-06-07] MEDS ORDERED: HYDROmorphone 0.5 MG/0.5 ML SYRINGE IVP PRN (18:47)
[2017-06-07] MEDS ORDERED: NALOXONE 0.4 MG/ML 1 ML VIAL IV PRN (18:47)
[2017-06-07] MEDS ORDERED: ONDANSETRON 4 MG/2 ML VIAL IVP PRN (18:47)
--- NOTE | 2017-06-07 18:51 | P.OP ---
Date of Procedure: 06/07/17 Procedure(s) Performed: PREOPERATIVE DIAGNOSIS: Renal failure POSTOPERATIVE DIAGNOSIS: Same PROCEDURE: Peritoneal dialysis catheter insertion SURGEON: Em EBL: Minimal ANESTHESIA: Sedation plus local COMPLICATIONS: None OPERATIVE PROCEDURE: The patient was placed in the operative table in the supine position. His abdomen was prepped and draped in usual sterile fashion. A small vertical incision was made in the right periumbilical location. Dissection down through the subcutaneous tissues took place using electrocautery. The anterior rectus was divided vertically using the scalpel. The rectus was bluntly. The posterior rectus was visualized. An 0 Vicryl pursestring was placed. A small opening in the posterior rectus fascia and peritoneum took place using a Metzenbaum scissors. There were no adhesions to the suture that was placed. The pigtail catheter was advanced into the pelvis over a stylette. No resistance was met. The inner cuff was secured to the fascia using the 0 Vicryl pursestring that was placed. The catheter was tunneled to an exit site in the right lateral lower quadrant. The catheter was connected to the 1 L bag of saline and approximated 800 mL of saline was easily introduced into the peritoneal cavity. The fluid was then allowed to evacuate. The majority of the fluid was returned. The anterior rectus fascia was then reapproximated using a running 0 Vicryl stitch. The subcutaneous tissues reprepped using 3-0 Vicryl sutures and the skin using 4-0 Monocryl sutures. The outpatient dialysis adapter was applied to the end of the catheter. A sterile dressings then applied after Steri-Strips were placed over the incision. DISPOSITION: Stable to recovery room
[2017-06-07 19:01] LABS: Glucose,Whole Blood 103 mg/dL (75-99)
[2017-06-07] MEDS: HYDROmorphone 0.5 MG/0.5 ML SYRINGE IVP PRN ×4 (19:10→19:30)
[2017-06-07] MEDS ORDERED: SODIUM CHLORIDE 0.9% 1,000 ML IV ONE (19:14)
[2017-06-07] MEDS ORDERED: METOPROLOL TARTRATE 50 MG TAB PO SCH (21:00)
[2017-06-07] MEDS ORDERED: PRAVASTATIN SODIUM 20 MG TAB PO SCH (21:00)
[2017-06-07 21:16] LABS: Glucose,Whole Blood 109 mg/dL (75-99)
--- NOTE | 2017-06-07 21:55 | P.CONS ---
History of Present Illness - Reason for Consult Consult date: 06/07/17 medical management Requesting physician: Piero Strickland - Chief Complaint medical management - History of Present Illness 61 year old female with history of endstage renal dialysis on hemodialysis through right permacath. Presented electively for peritoneal dialysis cath insertion. Patient tolerated procedure well, denies any chest pain, SOB, fever, chills, abd pain, nausea or vomiting,. Patient has tolerated diet, doing well now, denies any bleeding. Medicine consulted for further management post operatively Review of Systems Constitutional: Patient denies fever, denies chills, denies night sweating, denies significant weight changes Eyes: Patient denies visual changes, denies eye pain ENT: Patient denies ear pain, denies rhinorrhea, denies sore throat Cardiovascular: Patient denies chest pain, denies exertional dyspnea, denies peripheral leg edema, denies orthopnea, denies paroxysmal nocturnal dyspnea Respiratory:Patient denies cough, denies wheezing, denies shortness of breath Gastrointestinal: Patient denies diarrhea, denies constipation, denies nausea , denies vomiting, denies abdominal pain Musculoskeletal: Patient denies muscle pain, denies joint pain Psychiatric: Patient denies changes in mood or memory, denies suicidal ideation, denies anxiety Endocrine: Patient denies heat intolerance, denies cold intolerance, denies excessive thirst, denies polyuria Neurological: Patient denies focal neurologic deficits, denies weakness, denies numbness, denies tingling Hem/Lymphatic: Patient denies bleeding tendency, denies bruising, denies swollen lymph glands Allergic/Immun: Patient denies recent allergic reactions Skin: Patient denies rashes, denies pruritis, denies ulcers Past Medical History Past Medical History: Diabetes Mellitus, Dialysis, GERD/Reflux, Hyperlipidemia, Hypertension, Memory Impairment, Renal Disease, Thyroid Disorder Additional Past Medical History / Comment(s): hemodialysis on m,w,f. hx stil syndrome left hand-please use rt arm/hand for iv, blood draws. diabetic neuropathy and diabetic retinopathy, Rt BKA uses prosthesis History of Any Multi-Drug Resistant Organisms: MRSA Year Discovered:: 2015 MDRO Source:: rt foot Past Surgical History: Back Surgery, Hysterectomy Additional Past Surgical History / Comment(s): RBKA 01/23/16 R/T DM. neck cervical 4,5,6 fused, right chest permacath for hemodialysis. graft tie off 04/05, eye laser surgery for diabetic retinopathy Past Anesthesia/Blood Transfusion Reactions: No Reported Reaction Past Psychological History: No Psychological Hx Reported Smoking Status: Former smoker Past Alcohol Use History: None Reported Additional Past Alcohol Use History / Comment(s): smoked 25 years 1pack/wk quit 2002. Past Drug Use History: None Reported - Past Family History Mother Family Medical History: Diabetes Mellitus, Hypertension Additional Family Medical History / Comment(s): colon ca Father Family Medical History: Myocardial Infarction ([place]) Medications and Allergies Home Medications Medication Instructions Recorded Confirmed Type Levothyroxine Sodium [Synthroid] 75 mcg PO DAILY 10/09/16 06/05/17 History Metoprolol Tartrate [Lopressor] 50 mg PO HS 10/09/16 06/05/17 History Pantoprazole [Protonix] 40 mg PO DAILY 10/09/16 06/05/17 History Pravastatin Sodium [Pravachol] 20 mg PO HS 10/09/16 06/05/17 History cloNIDine HCL 0.3 mg PO BID 10/09/16 06/05/17 History hydrALAZINE HCL [Apresoline] 25 mg PO TID 11/01/16 06/05/17 History DULoxetine HCL [Cymbalta] 60 mg PO BID 01/10/17 06/07/17 History INSULIN LISPRO (humaLOG) [humaLOG] See Protocol SQ AC-TID PRN 01/10/17 06/05/17 History amLODIPine [Norvasc] 10 mg PO DAILY 02/20/17 06/05/17 History Calcium Acetate [Phoslo] 667 mg PO AC-TID 03/11/17 06/07/17 History Clopidogrel [Plavix] 75 mg PO DAILY 03/11/17 06/05/17 History Insulin Detemir [Levemir Flextouch] 20 units SQ QAM 03/11/17 06/05/17 History Rosio-Thomas 1 tab PO DAILY 03/11/17 06/05/17 History HYDROcodone/APAP 5-325MG [Wayne 1 - 2 tab PO Q6HR PRN #20 tab 04/26/17 06/05/17 Rx 5-325] Meclizine [Antivert] 25 mg PO TID PRN 04/26/17 06/05/17 History Aspirin [Adult Low Dose Aspirin EC] 81 mg PO HS 06/07/17 06/07/17 History Hydrocodone/Acetaminophen [Wayne 1 - 2 each PO Q4HR PRN #30 tab 06/07/17 Rx 5-325] Allergies Allergy/AdvReac Type Severity Reaction Status Date / Time gabapentin Allergy Rash/Hives Verified 06/07/17 14:14 lisinopril AdvReac Cough Verified 06/07/17 14:14 Physical Exam Vitals: Vital Signs Temp Pulse Resp BP Pulse Ox 06/07/17 19:32 66 16 134/69 100 06/07/17 19:16 66 16 130/64 100 06/07/17 19:02 65 16 125/63 100 06/07/17 18:51 97.0 F L 69 16 126/60 97 06/07/17 15:10 98.3 F 68 16 113/63 99 Intake and Output 06/07/17 06/07/17 06/07/17 06:59 14:59 22:59 Intake Total 800 180 Output Total 2 Balance 800 178 Intake: IV 800 180 Output: Estimated Blood Loss 2 Other: Weight 90.265 kg Patient Weight 06/08/17 06:59 Weight 90.265 kg Constitutional: No acute distress, conversant, pleasant Eyes: Anicteric sclerae, moist conjunctiva, no lid-lag Pupils equal round reactive to light ENMT: NC/AT Oropharynx clear, no erythema, exudates Neck: Supple, FROM, no masses, or JVD No carotid bruits No thyromegaly Lungs: right permacath with healthy surrounding skin Clear to auscultation Clear to percussion Normal respiratory effort, no accessory muscle use Cardiovascular: Heart regular in rate and rhythm, No murmurs, gallops, or rubs No peripheral edema Abdominal: surgical dressing dry and clean and intact Soft abd Nontender, no guarding, rebound or rigidity Abdomen moving with respiration Normoactive bowel sounds No hepatomegaly, No splenomegaly No palpable mass No abdominal wall hernia noted Skin: Normal temperature, tone, texture, turgor No induration No subcutaneous nodules No rash, lesions No ulcers Extremities: No digital cyanosis No clubbing Pedal pulses intact and symmetrical Radial pulses intact and symmetrical No calf tenderness contraction of left hand Psychiatric: Alert and oriented to person, place and time Appropriate affect fair judgment Neuro Muscles Strength 4/5 in all 4 extremities (contraction of left fingers) Sensation to light touch grossly present throughout Cranial nerves II-XII grossly intact No focal sensory deficits Lymphatics: no palpable cervical or supraclavicular , or inguinal lymph nodes Results CBC & Chem 7: 06/07/17 13:42 06/07/17 13:42 Labs: Abnormal Lab Results - Last 24 Hours (Table) 06/07/17 06/07/17 06/07/17 Range/Units 13:41 13:42 13:42 RDW 17.1 H (11.5-15.5) % Carbon Dioxide 31 H (22-30) mmol/L BUN 27 H (7-17) mg/dL Creatinine 4.20 H (0.52-1.04) mg/dL Glucose 215 H (74-99) mg/dL POC Glucose (mg/dL) 187 H (75-99) mg/dL 06/07/17 06/07/17 06/07/17 Range/Units 15:13 16:09 17:30 RDW (11.5-15.5) % Carbon Dioxide (22-30) mmol/L BUN (7-17) mg/dL Creatinine (0.52-1.04) mg/dL Glucose (74-99) mg/dL POC Glucose (mg/dL) 124 H 113 H 64 L (75-99) mg/dL 06/07/17 Range/Units 18:59 RDW (11.5-15.5) % Carbon Dioxide (22-30) mmol/L BUN (7-17) mg/dL Creatinine (0.52-1.04) mg/dL Glucose (74-99) mg/dL POC Glucose (mg/dL) 103 H (75-99) mg/dL Assessment and Plan (1) Type 2 diabetes mellitus Narrative/Plan: currently controlled continue with long acting and preprandial short acting insulin per sliding scale Current Visit: No Status: Chronic Code(s): E11.9 - TYPE 2 DIABETES MELLITUS WITHOUT COMPLICATIONS SNOMED Code(s): 81322470 (2) End stage renal disease on dialysis Narrative/Plan: dialysis through right permacath , had it for a year now s/p peritoneal dialysis cath insertion , POD zero plans for dialysis session in AM nephro following Current Visit: Yes Status: Chronic Priority: High Code(s): N18.6 - END STAGE RENAL DISEASE; Z99.2 - DEPENDENCE ON RENAL DIALYSIS SNOMED Code(s): 497977480 (3) Hypertension Narrative/Plan: currently controlled continue home medications Current Visit: No Status: Acute Code(s): I10 - ESSENTIAL (PRIMARY) HYPERTENSION SNOMED Code(s): 49863156 (4) Hypothyroidism Narrative/Plan: stable continue levothyroxin Current Visit: No Status: Acute Priority: Medium Code(s): E03.9 - HYPOTHYROIDISM, UNSPECIFIED SNOMED Code(s): 11536911 (5) DVT prophylaxis Narrative/Plan: heparin sc tid Current Visit: Yes Status: Acute Code(s): LBC9779 - SNOMED Code(s): 885752954 Plan: Surrogate decision-maker: makeda Loja CODE STATUS:full code DVT prophylaxis: heparin sc Thank you for allowing us to participate in the care of this patient. Do not hesitate to contact us with questions. Someone can be reached from the [facility] hospitalist group at all hours of the day at [phone].
[2017-06-07] MEDS: HYDROcodone/APAP 5-325MG 1 EACH TAB PO PRN (22:25)
[2017-06-07] MEDS: DULoxetine HCL 60 MG CAPSULE.DR PO SCH (22:26)
[2017-06-07] MEDS: cloNIDine HCL 0.1 MG TAB PO SCH (22:26)
[2017-06-07] MEDS: hydrALAZINE HCL 25 MG TAB PO SCH (22:26)
[2017-06-07] MEDS: FAMOTIDINE 20 MG TAB PO SCH (22:28)
[2017-06-07] MEDS: HEPARIN SODIUM,PORCINE 5,000 UNIT/ML 1 ML VIAL SQ SCH (23:31)
[2017-06-08] MEDS: HYDROcodone/APAP 5-325MG 1 EACH TAB PO PRN ×3 (04:10→16:28)
[2017-06-08] MEDS ORDERED: LEVOTHYROXINE 75 MCG TAB PO SCH (06:30)
[2017-06-08 06:49] LABS: Glucose,Whole Blood 312 mg/dL (75-99)
[2017-06-08 07:21] LABS: Magnesium 1.9 mg/dL (1.6-2.3); Phosphorus 5.1 mg/dL (2.5-4.5); Potassium 4.9 mmol/L (3.5-5.1)
[2017-06-08] MEDS ORDERED: PANTOPRAZOLE 40 MG TABLET PO SCH (07:30)
[2017-06-08] MEDS: INSULIN ASPART 100 UNIT/ML 1 ML 10 ML VIAL SQ SCH ×3 (08:51→17:37)
[2017-06-08] MEDS ORDERED: amLODIPine 10 MG TAB PO SCH (09:00)
[2017-06-08] MEDS ORDERED: CLOPIDOGREL 75 MG TAB PO SCH (09:00)
[2017-06-08] MEDS ORDERED: INSULIN DETEMIR 100 UNIT/ML 10 ML VIAL SQ SCH (09:00)
--- NOTE | 2017-06-08 09:07 | P.PN ---
Subjective Progress Note Date: 06/08/17 Principal diagnosis: medical management Some soreness in the site of the tube, good appetite, no fever Objective - Vital Signs Vital signs: Vital Signs Temp 98.1 F 06/08/17 07:24 Pulse 62 06/08/17 07:24 Resp 20 06/08/17 07:24 BP 143/70 06/08/17 07:24 Pulse Ox 97 06/08/17 07:24 Intake & Output 06/07/17 06/08/17 06/08/17 18:59 06:59 18:59 Intake Total 950 620 180 Output Total 2 Balance 948 620 180 Weight 90.265 kg Intake: IV 950 30 Oral 590 180 Output: Estimated Blood Loss 2 Other: Voiding Method Bedpan # Voids 1 - Exam gen:alert and oriented lungs:clear to auscultation heart:s1s2 abdomen:soft and depressible,non tender ext:no edema - Labs CBC & Chem 7: 06/07/17 13:42 06/08/17 06:38 Labs: Abnormal Lab Results - Last 24 Hours (Table) 06/07/17 06/07/17 06/07/17 Range/Units 13:41 13:42 13:42 RDW 17.1 H (11.5-15.5) % Sodium (137-145) mmol/L Chloride (98-107) mmol/L Carbon Dioxide 31 H (22-30) mmol/L BUN 27 H (7-17) mg/dL Creatinine 4.20 H (0.52-1.04) mg/dL Glucose 215 H (74-99) mg/dL POC Glucose (mg/dL) 187 H (75-99) mg/dL Phosphorus (2.5-4.5) mg/dL 06/07/17 06/07/17 06/07/17 Range/Units 15:13 16:09 17:30 RDW (11.5-15.5) % Sodium (137-145) mmol/L Chloride (98-107) mmol/L Carbon Dioxide (22-30) mmol/L BUN (7-17) mg/dL Creatinine (0.52-1.04) mg/dL Glucose (74-99) mg/dL POC Glucose (mg/dL) 124 H 113 H 64 L (75-99) mg/dL Phosphorus (2.5-4.5) mg/dL 06/07/17 06/07/17 06/08/17 Range/Units 18:59 21:10 06:38 RDW (11.5-15.5) % Sodium 135 L (137-145) mmol/L Chloride 97 L (98-107) mmol/L Carbon Dioxide (22-30) mmol/L BUN 33 H (7-17) mg/dL Creatinine 4.51 H (0.52-1.04) mg/dL Glucose 343 H (74-99) mg/dL POC Glucose (mg/dL) 103 H 109 H (75-99) mg/dL Phosphorus 5.1 H (2.5-4.5) mg/dL 06/08/17 Range/Units 06:46 RDW (11.5-15.5) % Sodium (137-145) mmol/L Chloride (98-107) mmol/L Carbon Dioxide (22-30) mmol/L BUN (7-17) mg/dL Creatinine (0.52-1.04) mg/dL Glucose (74-99) mg/dL POC Glucose (mg/dL) 312 H (75-99) mg/dL Phosphorus (2.5-4.5) mg/dL Assessment and Plan (1) End stage renal disease Narrative/Plan: On hemodialysis Status post peritoneal dialysis catheter placement Current Visit: No Status: Acute Code(s): N18.6 - END STAGE RENAL DISEASE SNOMED Code(s): 35046869 (2) Hypertension Narrative/Plan: Controlled On Norvasc, clonidine, hydralazine, and metoprolol Current Visit: No Status: Acute Code(s): I10 - ESSENTIAL (PRIMARY) HYPERTENSION SNOMED Code(s): 25412206 (3) Hypothyroidism Narrative/Plan: Synthroid Current Visit: No Status: Acute Priority: Medium Code(s): E03.9 - HYPOTHYROIDISM, UNSPECIFIED SNOMED Code(s): 02235320 (4) Type 2 diabetes mellitus Narrative/Plan: Controlled On Levemir Current Visit: No Status: Chronic Code(s): E11.9 - TYPE 2 DIABETES MELLITUS WITHOUT COMPLICATIONS SNOMED Code(s): 24916061 Plan: Plan to discharge post hemodialysis
--- NOTE | 2017-06-08 10:00 | P.PN ---
Subjective Progress Note Date: 06/08/17 61-year-old female seen sitting up in a chair. Patient is postop peritoneal dialysis catheter insertion done on June 07 dressing to surgical site dry patient is scheduled today for hemodialysis with the plan the patient will be discharged after. Patient has a history of end-stage renal disease with hemodialysis 3 times a week Objective - Vital Signs Vital signs: Vital Signs Temp 98.1 F 06/08/17 07:24 Pulse 62 06/08/17 07:24 Resp 20 06/08/17 07:24 BP 143/70 06/08/17 07:24 Pulse Ox 97 06/08/17 07:24 Intake & Output 06/07/17 06/08/17 06/08/17 18:59 06:59 18:59 Intake Total 950 620 180 Output Total 2 Balance 948 620 180 Weight 90.265 kg Intake: IV 950 30 Oral 590 180 Output: Estimated Blood Loss 2 Other: Voiding Method Bedpan # Voids 1 - Exam Physical exam Pleasant 61-year-old female sitting up in a chair appears in no acute distress Lungs clear adequate air movement no shortness of breath noted Heart S1-S2 audible regular denying chest pain Abdomen dressing peritoneal catheter site dry nondistended Extremities right BKA no edema noted Chest right permacath in place - Labs CBC & Chem 7: 06/07/17 13:42 06/08/17 06:38 Labs: Abnormal Lab Results - Last 24 Hours (Table) 06/07/17 06/07/17 06/07/17 Range/Units 13:41 13:42 13:42 RDW 17.1 H (11.5-15.5) % Sodium (137-145) mmol/L Chloride (98-107) mmol/L Carbon Dioxide 31 H (22-30) mmol/L BUN 27 H (7-17) mg/dL Creatinine 4.20 H (0.52-1.04) mg/dL Glucose 215 H (74-99) mg/dL POC Glucose (mg/dL) 187 H (75-99) mg/dL Phosphorus (2.5-4.5) mg/dL 06/07/17 06/07/17 06/07/17 Range/Units 15:13 16:09 17:30 RDW (11.5-15.5) % Sodium (137-145) mmol/L Chloride (98-107) mmol/L Carbon Dioxide (22-30) mmol/L BUN (7-17) mg/dL Creatinine (0.52-1.04) mg/dL Glucose (74-99) mg/dL POC Glucose (mg/dL) 124 H 113 H 64 L (75-99) mg/dL Phosphorus (2.5-4.5) mg/dL 06/07/17 06/07/17 06/08/17 Range/Units 18:59 21:10 06:38 RDW (11.5-15.5) % Sodium 135 L (137-145) mmol/L Chloride 97 L (98-107) mmol/L Carbon Dioxide (22-30) mmol/L BUN 33 H (7-17) mg/dL Creatinine 4.51 H (0.52-1.04) mg/dL Glucose 343 H (74-99) mg/dL POC Glucose (mg/dL) 103 H 109 H (75-99) mg/dL Phosphorus 5.1 H (2.5-4.5) mg/dL 06/08/17 Range/Units 06:46 RDW (11.5-15.5) % Sodium (137-145) mmol/L Chloride (98-107) mmol/L Carbon Dioxide (22-30) mmol/L BUN (7-17) mg/dL Creatinine (0.52-1.04) mg/dL Glucose (74-99) mg/dL POC Glucose (mg/dL) 312 H (75-99) mg/dL Phosphorus (2.5-4.5) mg/dL Assessment and Plan Assessment: Impression Postop June 07 peritoneal dialysis catheter placement End-stage renal disease on hemodialysis Hypertension essential Hypothyroid Type 2 diabetes Plan Patient is to receive hemodialysis this morning and then anticipate discharged Follow-up with nephrology as directed Resume hemodialysis schedule The above impression and plan of care have been discussed and directed by signing physician. Gely Coppola nurse practitioner acting as scribe for signing physician.
[2017-06-08] MEDS: cloNIDine HCL 0.1 MG TAB PO SCH (10:02)
[2017-06-08] MEDS: CALCIUM ACETATE 667 MG CAP PO SCH ×2 (10:02→16:09)
[2017-06-08] MEDS: HEPARIN SODIUM,PORCINE 5,000 UNIT/ML 1 ML VIAL SQ SCH ×2 (10:03→16:07)
[2017-06-08] MEDS: hydrALAZINE HCL 25 MG TAB PO SCH ×2 (10:04→16:28)
[2017-06-08] MEDS: DULoxetine HCL 60 MG CAPSULE.DR PO SCH (10:05)
[2017-06-08 11:44] LABS: Glucose,Whole Blood 327 mg/dL (75-99)
[2017-06-08] MEDS ORDERED: FOLIC ACID-VIT B COMPLEX-VIT C 1 CAP PO SCH (12:00)
--- NOTE | 2017-06-08 13:42 | P.DS ---
<Gely Coppola - Last Filed: 06/08/17 13:38> Providers Expected date of discharge: 06/08/17 Attending physician: Piero Strickland Consults: 06/07/17 18:47 Consult Physician Routine Consulting Provider: Olivier Multani Consult Reason/Comments: Medical management Do you want consulting provider notified?: Yes Consult Physician Routine Consulting Provider: Zoey Archer Consult Reason/Comments: Dialysis management Do you want consulting provider notified?: Yes, Notify in am Primary care physician: Ailyn Eaton MD Hospital Course: 61-year-old female who has end-stage renal disease on hemodialysis through a right permacath presented on elective basis to undergo peritoneal dialysis catheter insertion to start peritoneal dialysis.patient underwent procedure on June 07 placement of a peritoneal catheter. No postop events. Patient did receive hemodialysis on the day of discharge. Impression Postop June 07 peritoneal dialysis catheter placement End-stage renal disease on hemodialysis Hypertension essential Hypothyroid Type 2 diabetes The above impression and plan of care have been discussed and directed by signing physician. Gely Coppola nurse practitioner acting as scribe for signing physician. Plan - Discharge Summary New Discharge Prescriptions: New Hydrocodone/Acetaminophen [[place] 5-325] 1 - 2 each PO Q4HR PRN #30 tab PRN Reason: pain Continue Pantoprazole [Protonix] 40 mg PO DAILY Levothyroxine Sodium [Synthroid] 75 mcg PO DAILY cloNIDine HCL 0.3 mg PO BID Metoprolol Tartrate [Lopressor] 50 mg PO HS Pravastatin Sodium [Pravachol] 20 mg PO HS hydrALAZINE HCL [Apresoline] 25 mg PO TID DULoxetine HCL [Cymbalta] 60 mg PO BID INSULIN LISPRO (humaLOG) [humaLOG] See Protocol SQ AC-TID PRN PRN Reason: Blood Sugar - High amLODIPine [Norvasc] 10 mg PO DAILY Calcium Acetate [PhosLo] 667 mg PO AC-TID Clopidogrel [Plavix] 75 mg PO DAILY Rosio-Thomas 1 tab PO DAILY Insulin Detemir [Levemir Flextouch] 20 units SQ QAM Meclizine [Antivert] 25 mg PO TID PRN PRN Reason: Vertigo HYDROcodone/APAP 5-325MG [Weott 5-325] 1 - 2 tab PO Q6HR PRN #20 tab PRN Reason: Analgesia Aspirin [Adult Low Dose Aspirin EC] 81 mg PO HS Discharge Medication List Levothyroxine Sodium [Synthroid] 75 mcg PO DAILY 10/09/16 [History] Metoprolol Tartrate [Lopressor] 50 mg PO HS 10/09/16 [History] Pantoprazole [Protonix] 40 mg PO DAILY 10/09/16 [History] Pravastatin Sodium [Pravachol] 20 mg PO HS 10/09/16 [History] cloNIDine HCL 0.3 mg PO BID 10/09/16 [History] hydrALAZINE HCL [Apresoline] 25 mg PO TID 11/01/16 [History] DULoxetine HCL [Cymbalta] 60 mg PO BID 01/10/17 [History] INSULIN LISPRO (humaLOG) [humaLOG] See Protocol SQ AC-TID PRN 01/10/17 [History] amLODIPine [Norvasc] 10 mg PO DAILY 02/20/17 [History] Calcium Acetate [PhosLo] 667 mg PO AC-TID 03/11/17 [History] Clopidogrel [Plavix] 75 mg PO DAILY 03/11/17 [History] Insulin Detemir [Levemir Flextouch] 20 units SQ QAM 03/11/17 [History] Rosio-Thomas 1 tab PO DAILY 03/11/17 [History] HYDROcodone/APAP 5-325MG [Weott 5-325] 1 - 2 tab PO Q6HR PRN #20 tab 04/26/17 [ Rx] Meclizine [Antivert] 25 mg PO TID PRN 04/26/17 [History] Aspirin [Adult Low Dose Aspirin EC] 81 mg PO HS 06/07/17 [History] Hydrocodone/Acetaminophen [Weott 5-325] 1 - 2 each PO Q4HR PRN #30 tab 06/07/17 [Rx] Follow up Appointment(s)/Referral(s): Piero Strickland MD [Medical Doctor] - 06/20/17 2:40 pm Activity/Diet/Wound Care/Special Instructions: To resume hemodialysis schedule Sunday Discharge Disposition: HOME SELF-CARE <Piero Strickladn - Last Filed: 06/08/17 14:15> Hospital Course: As above. Patient stable for discharge. Follow-up 2 weeks.
--- NOTE | 2017-06-08 15:19 | CONS ---
CONSULTATION REASON FOR CONSULT: End-stage renal disease. HISTORY OF PRESENT ILLNESS: Patient is a 61-year-old female with end-stage renal disease, currently on hemodialysis via right IJ PermCath. Patient had a PD catheter placed. She is currently on hemodialysis on a Sunday, Sunday, Sunday schedule. She will be dialyzed today and plan is for discharge post dialysis. PAST MEDICAL HISTORY: End-stage renal disease, anemia of chronic disease, CKD mineral bone disorder, peripheral vascular disease with steal in the left hand, diabetic retinopathy and neuropathy. PAST SURGICAL HISTORY: Hysterectomy, back surgery, right BKA, multiple surgeries for AV fistula and right arm AV graft. IJ PermCath placement, laser eye surgery. SOCIAL HISTORY: Patient is a former smoker. No history of drug abuse or alcohol abuse. MEDICATIONS: At home prior to admission, Synthroid, Protonix, Pravachol, hydralazine, clonidine, insulin, Norvasc, PhosLo, Plavix, [place], Antivert, aspirin. ALLERGIES: Include LISINOPRIL which causes cough. GABAPENTIN causes rash and hives. REVIEW OF SYSTEMS: As per HPI. Other systems negative. PHYSICAL EXAMINATION: Patient is currently comfortable, awake, alert, oriented x3. She was not in any acute distress. Blood pressure is 131/70, heart rate 62 per minute. She is afebrile. Examination of the heart, S1, S2. Examination of the lungs, bilateral breath sounds are heard. Abdomen is soft, nontender. There is a PD catheter placed and it is currently dressed. Examination of the lower extremities showed no evidence of edema. Patient has a right BKA. She also has deformity in the left hand related to steal from previous vascular surgeries. STORE CONSULTANT exam is otherwise grossly intact. Patient is weak in her left hand. LABS: Show potassium 4.9, sodium 135, creatinine is 4.5. ASSESSMENT: 1. End-stage renal disease, on hemodialysis on a Sunday, Sunday, Sunday schedule via a right IJ PermCath. Patient will be dialyzed today. 2. Status post PD catheter placement. 3. Chronic kidney disease mineral bone disorder. 4. Anemia of chronic disease, hemoglobin was 11.7. 5. Hypertension, currently controlled. PLAN: Hemodialysis today and patient can be discharged post dialysis. She will follow up with PD as outpatient. MMODL / IJN: [id number] /
[2017-06-08] MEDS: FAMOTIDINE 20 MG TAB PO SCH (16:14)
[2017-06-08 16:24] VITALS: BP 135/75; PULSE 66; RESP 16; TEMP 97.2
[2017-06-08 16:29] LABS: Glucose,Whole Blood 80 mg/dL (75-99)
[2017-06-08 17:11] LABS: Glucose,Whole Blood 112 mg/dL (75-99)
[2017-06-08] MEDS ORDERED: ASPIRIN 81 MG PO SCH (21:00)
== END 2017-06-08 17:53 | disposition home or self-care (01) ==
LOC: OR 13:19 → 3SUR 18:40 → OR 06-08 17:53
PROVIDERS: ATTEND Surgery
DX: I12.0 Hypertensive chronic kidney disease with stage 5 chronic kidney disease or end stage renal disease (principal); E11.22 Type 2 diabetes mellitus with diabetic chronic kidney disease; D63.1 Anemia in chronic kidney disease; N18.6 End stage renal disease; Z99.2 Dependence on renal dialysis; E11.40 Type 2 diabetes mellitus with diabetic neuropathy, unspecified; E11.319 Type 2 diabetes mellitus with unspecified diabetic retinopathy without macular edema; Z79.4 Long term (current) use of insulin; M89.8X9 Other specified disorders of bone, unspecified site; Z87.891 Personal history of nicotine dependence; K21.9 Gastro-esophageal reflux disease without esophagitis; E78.5 Hyperlipidemia, unspecified; E03.9 Hypothyroidism, unspecified; Z79.82 Long term (current) use of aspirin; Z79.899 Other long term (current) drug therapy; Z88.8 Allergy status to other drugs, medicaments and biological substances
CPT/HCPCS: 80053; 80048; 83735; 84100; 85025; 49418; C1752; J2250; J1644 ×2; J1100; J2405; J2001; J3010; J2704; J1170; J0690; 90935

== ENCOUNTER → 2017-10-09 | Outpatient (CLI) | payer MEDICARE, BC ==
[2017-10-09 10:25] LABS: Basophils # (A) 0.1 k/uL (0-0.2); Basophils % (A) 1 %; Eosinophils # (A) 0.2 k/uL (0-0.7); Eosinophils % (A) 2 %; HCT 32.7 % (34.0-46.0); HGB 10.3 gm/dL (11.4-16.0); Lymphocytes # (A) 1.1 k/uL (1.0-4.8); Lymphocytes % (A) 16 %; MCH 30.9 pg (25.0-35.0); MCHC 31.3 g/dL (31.0-37.0); MCV 98.6 fL (80.0-100.0); Macrocytosis Slight; Mean Platelet Volume 8.1; Monocytes # (A) 0.4 k/uL (0-1.0); Monocytes % (A) 5 %; Neutrophils # (A) 5.2 k/uL (1.3-7.7); Neutrophils % (A) 74 %; Platelet Count 287 k/uL (150-450); RBC 3.32 m/uL (3.80-5.40); RDW 15.3 % (11.5-15.5); WBC 6.9 k/uL (3.8-10.6)
[2017-10-09 12:02] LABS: Albumin 3.6 g/dL (3.5-5.0); Calcium 8.7 mg/dL (8.4-10.2); Potassium 4.6 mmol/L (3.5-5.1); Total Bilirubin 0.4 mg/dL (0.2-1.3); Total Protein 6.3 g/dL (6.3-8.2)
[2017-10-09 12:14] LABS: T4, Free (Free Thyroxine) 1.48 ng/dL (0.78-2.19)
[2017-10-10 05:36] LABS: Hemoglobin A1C 8.3 % (4.0-6.0)
== END | disposition home or self-care (01) ==
LOC: LABWHC1 09:15
PROVIDERS: ATTEND Internal Medicine Endocrinology, Diabetes & Metabolism
DX: E11.65 Type 2 diabetes mellitus with hyperglycemia (principal); E78.5 Hyperlipidemia, unspecified; I10 Essential (primary) hypertension; E03.9 Hypothyroidism, unspecified
CPT/HCPCS: 36415; 80053; 80061; 82043; 82570; 83036; 84439; 84443; 84681; 85025

== ENCOUNTER 2018-04-23 17:26 | Observation (INO) | payer MEDICARE, BC ==
--- NOTE | 2018-04-23 17:37 | ED ---
General Adult HPI - General Stated complaint: Low sugar - History of Present Illness Initial comments: Dictation was produced using [employer] dictation software. please excuse any grammatical, word or spelling errors. Chief Complaint: 62-year-old -N[place]alese female past medical history of insulin-dependent diabetes mellitus presents with hypoglycemia. History of Present Illness: She is 62-year-old female presents with hypoglycemia. Patient states she was pumping gas. She didn't syncopized onto the floor. EMS was called blood sugar was checked at that time and found to be 21. Patient was given dextrose. She did have dramatic improvement of mentation. Patient states that prior to this episode she did have some symptoms of dizziness however has otherwise felt well. Patient is on insulin pump. Her service center manager is Dr. Whaley. Patient otherwise has no complaints at this time. She is upset however that this had happened. The ROS documented in this emergency department record has been reviewed and confirmed by me. Those systems with pertinent positive or negative responses have been documented in the HPI. All other systems are other negative and/or noncontributory. - Related Data Home Medications Medication Instructions Recorded Confirmed Levothyroxine Sodium [Synthroid] 75 mcg PO DAILY 10/09/16 04/23/18 Metoprolol Tartrate [Lopressor] 50 mg PO HS 10/09/16 04/23/18 Pantoprazole [Protonix] 40 mg PO DAILY 10/09/16 04/23/18 Pravastatin Sodium [Pravachol] 20 mg PO HS 10/09/16 04/23/18 DULoxetine HCL [Cymbalta] 60 mg PO BID 01/10/17 04/23/18 amLODIPine [Norvasc] 10 mg PO DAILY 02/20/17 04/23/18 Calcium Acetate [PhosLo] 667 mg PO AC-TID 03/11/17 04/23/18 Clopidogrel [Plavix] 75 mg PO DAILY 03/11/17 04/23/18 Rosio-Thomas 1 tab PO DAILY 03/11/17 04/23/18 Meclizine [Antivert] 25 mg PO TID PRN 04/26/17 04/23/18 Aspirin [Adult Low Dose Aspirin EC] 81 mg PO HS 06/07/17 04/23/18 Acetaminophen Tab [Tylenol] 1,000 mg PO Q8H 04/23/18 04/23/18 Furosemide [Lasix] 80 mg PO BID 04/23/18 04/23/18 INSULIN LISPRO (For Pump) [humaLOG See Protocol INTRATHECA DIRECTED 04/23/18 04/23/18 (For Pump)] Losartan [Cozaar] 25 mg PO BID 04/23/18 04/23/18 Allergies Allergy/AdvReac Type Severity Reaction Status Date / Time gabapentin Allergy Rash/Hives Verified 04/23/18 18:16 lisinopril AdvReac Cough Verified 04/23/18 18:16 Review of Systems ROS Statement: Those systems with pertinent positive or pertinent negative responses have been documented in the HPI. ROS Other: All systems not noted in ROS Statement are negative. Past Medical History Past Medical History: Diabetes Mellitus, Dialysis, GERD/Reflux, Hyperlipidemia, Hypertension, Memory Impairment, Renal Disease, Thyroid Disorder Additional Past Medical History / Comment(s): hemodialysis on m,w,f. hx stil syndrome left hand-please use rt arm/hand for iv, blood draws. diabetic neuropathy and diabetic retinopathy, Rt BKA uses prosthesis History of Any Multi-Drug Resistant Organisms: MRSA Date of last positivie culture/infection: 2015 MDRO Source:: rt foot Past Surgical History: Back Surgery, Hysterectomy Additional Past Surgical History / Comment(s): RBKA 01/23/16 R/T DM. neck cervical 4,5,6 fused, right chest permacath for hemodialysis. graft tie off 04/05, eye laser surgery for diabetic retinopathy Past Anesthesia/Blood Transfusion Reactions: No Reported Reaction Past Psychological History: No Psychological Hx Reported Smoking Status: Former smoker Past Alcohol Use History: None Reported Additional Past Alcohol Use History / Comment(s): smoked 25 years 1pack/wk quit 2002. Past Drug Use History: None Reported - Past Family History Mother Family Medical History: Diabetes Mellitus, Hypertension Additional Family Medical History / Comment(s): colon ca Father Family Medical History: Myocardial Infarction ([place]) General Exam - General Exam Comments Initial Comments: PHYSICAL EXAM: General Impression: Alert and oriented x3, not in acute distress HEENT: Normocephalic atraumatic, extra-ocular movements intact, pupils equal and reactive to light bilaterally, mucous membranes moist. Cardiovascular: Heart regular rate and rhythm, S1&S2 audible, no murmurs, rubs or gallops Chest: Lungs clear to auscultation bilaterally, no rhonchi, no wheeze, no rales Abdomen: Bowel sounds present, abdomen soft, non-tender, non-distended, no organomegaly Musculoskeletal: Pulses present and equal in all extremities, no peripheral edema Motor: Power 5/5 bilaterally, no focal deficits noted Neurological: CN II-XII grossly intact, no focal motor or sensory deficits noted Skin: Intact with no visualized rashes Psych: Normal affect and mood Course Vital Signs 04/23/18 17:35 Pulse Rate 65 Respiratory 18 Rate Blood Pressure 145/90 O2 Sat by Pulse 100 Oximetry Medical Decision Making - Medical Decision Making ED course: 62-year-old female presents with hypoglycemia. She does have history of insulin-dependent diabetes mellitus patient does have insulin pump. More history was obtained from the patient. She states she bolus herself inadvertently. Patient denies any suicidal ideation. Patient was given multiple amps of dextrose. He was given oral glucose and boluses of D10 glucose. Patient still had low trending low glucose levels. Stress patient case with Dr. Whaley who recommended giving patient complex carbohydrates. Patient to be admitted to observation for blood glucose monitoring. Patient is tolerating by mouth. She is a heavy other complaints at this time. Patient was hemodynamically stable throughout the whole emergency department stay patient did not have any changes in mentation either. - Lab Data Result diagrams: 04/23/18 17:36 04/23/18 17:36 Lab Results 04/23/18 04/23/18 04/23/18 Range/Units 17:36 17:36 17:45 WBC 6.0 (3.8-10.6) k/uL RBC 3.88 (3.80-5.40) m/uL Hgb 11.8 (11.4-16.0) gm/dL Hct 37.2 (34.0-46.0) % MCV 96.0 (80.0-100.0) fL MCH 30.6 (25.0-35.0) pg MCHC 31.8 (31.0-37.0) g/dL RDW 15.0 (11.5-15.5) % Plt Count 239 (150-450) k/uL Neutrophils % 74 % Lymphocytes % 15 % Monocytes % 5 % Eosinophils % 3 % Basophils % 1 % Neutrophils # 4.4 (1.3-7.7) k/uL Lymphocytes # 0.9 L (1.0-4.8) k/uL Monocytes # 0.3 (0-1.0) k/uL Eosinophils # 0.2 (0-0.7) k/uL Basophils # 0.1 (0-0.2) k/uL Sodium 145 (137-145) mmol/L Potassium 3.3 L (3.5-5.1) mmol/L Chloride 106 (98-107) mmol/L Carbon Dioxide 29 (22-30) mmol/L Anion Gap 10 mmol/L BUN 47 H (7-17) mg/dL Creatinine 4.99 H (0.52-1.04) mg/dL Est GFR (CKD-EPI)AfAm 10 (>60 ml/min/1.73 sqM) Est GFR (CKD-EPI)NonAf 9 (>60 ml/min/1.73 sqM) Glucose 79 (74-99) mg/dL POC Glucose (mg/dL) 59 L (75-99) mg/dL POC Glu Active Directory Architect ID Ailyn Ramirez Calcium 8.0 L (8.4-10.2) mg/dL 04/23/18 04/23/18 04/23/18 Range/Units 18:19 18:46 20:17 WBC (3.8-10.6) k/uL RBC (3.80-5.40) m/uL Hgb (11.4-16.0) gm/dL Hct (34.0-46.0) % MCV (80.0-100.0) fL MCH (25.0-35.0) pg MCHC (31.0-37.0) g/dL RDW (11.5-15.5) % Plt Count (150-450) k/uL Neutrophils % % Lymphocytes % % Monocytes % % Eosinophils % % Basophils % % Neutrophils # (1.3-7.7) k/uL Lymphocytes # (1.0-4.8) k/uL Monocytes # (0-1.0) k/uL Eosinophils # (0-0.7) k/uL Basophils # (0-0.2) k/uL Sodium (137-145) mmol/L Potassium (3.5-5.1) mmol/L Chloride (98-107) mmol/L Carbon Dioxide (22-30) mmol/L Anion Gap mmol/L BUN (7-17) mg/dL Creatinine (0.52-1.04) mg/dL Est GFR (CKD-EPI)AfAm (>60 ml/min/1.73 sqM) Est GFR (CKD-EPI)NonAf (>60 ml/min/1.73 sqM) Glucose (74-99) mg/dL POC Glucose (mg/dL) 77 42 L 60 L (75-99) mg/dL POC Glu Active Directory Architect ID Ailyn Ramirez Danielle Gorecki, Joanna Calcium (8.4-10.2) mg/dL 04/23/18 Range/Units 20:53 WBC (3.8-10.6) k/uL RBC (3.80-5.40) m/uL Hgb (11.4-16.0) gm/dL Hct (34.0-46.0) % MCV (80.0-100.0) fL MCH (25.0-35.0) pg MCHC (31.0-37.0) g/dL RDW (11.5-15.5) % Plt Count (150-450) k/uL Neutrophils % % Lymphocytes % % Monocytes % % Eosinophils % % Basophils % % Neutrophils # (1.3-7.7) k/uL Lymphocytes # (1.0-4.8) k/uL Monocytes # (0-1.0) k/uL Eosinophils # (0-0.7) k/uL Basophils # (0-0.2) k/uL Sodium (137-145) mmol/L Potassium (3.5-5.1) mmol/L Chloride (98-107) mmol/L Carbon Dioxide (22-30) mmol/L Anion Gap mmol/L BUN (7-17) mg/dL Creatinine (0.52-1.04) mg/dL Est GFR (CKD-EPI)AfAm (>60 ml/min/1.73 sqM) Est GFR (CKD-EPI)NonAf (>60 ml/min/1.73 sqM) Glucose (74-99) mg/dL POC Glucose (mg/dL) 68 L (75-99) mg/dL POC Glu Active Directory Architect ID Kristin Infante Calcium (8.4-10.2) mg/dL Disposition Clinical Impression: Hypoglycemia Disposition: ADMITTED IP TO THIS HOSP Condition: Fair Referrals: Ailyn Eaton MD [Primary Care Provider] - 1-2 days Decision Time: 21:10
[2018-04-23] MEDS ORDERED: DEXTROSE 50%-WATER 50 ML SYRINGE IVP STA ×2 (17:46→18:48)
[2018-04-23 18:04] LABS: Glucose,Whole Blood 59 mg/dL (75-99)
[2018-04-23 18:09] LABS: Basophils # (A) 0.1 k/uL (0-0.2); Basophils % (A) 1 %; Eosinophils # (A) 0.2 k/uL (0-0.7); Eosinophils % (A) 3 %; HCT 37.2 % (34.0-46.0); HGB 11.8 gm/dL (11.4-16.0); Lymphocytes # (A) 0.9 k/uL (1.0-4.8); Lymphocytes % (A) 15 %; MCH 30.6 pg (25.0-35.0); MCHC 31.8 g/dL (31.0-37.0); Monocytes # (A) 0.3 k/uL (0-1.0); Monocytes % (A) 5 %; Neutrophils # (A) 4.4 k/uL (1.3-7.7); Neutrophils % (A) 74 %; Platelet Count 239 k/uL (150-450); RBC 3.88 m/uL (3.80-5.40)
[2018-04-23 18:20] LABS: Potassium 3.3 mmol/L (3.5-5.1)
[2018-04-23 18:22] LABS: Glucose,Whole Blood 77 mg/dL (75-99)
--- NOTE | 2018-04-23 18:27 | XR ---
EXAMINATION TYPE: XR chest 2V DATE OF EXAM: 04/23/2018 COMPARISON: 03/11/2017 HISTORY: Syncope TECHNIQUE: Frontal and lateral views of the chest are obtained. FINDINGS: There is no heart failure nor confluent pneumonic infiltrate. Costophrenic angles are selwyn r. Bony thorax is intact. IMPRESSION: No active cardiopulmonary disease.
[2018-04-23] MEDS ORDERED: DEXTROSE 10% IN WATER 1,000 ML with SODIUM CHLORIDE 2.5MEQ/ML VIAL 153.8 MEQ IV SCH (19:00)
[2018-04-23 19:11] LABS: Glucose,Whole Blood 42 mg/dL (75-99)
[2018-04-23] MEDS ORDERED: DEXTROSE 5%-0.9% NACL 1,000 ML IV SCH (19:15)
[2018-04-23] MEDS ORDERED: DEXTROSE IV ONE (19:30)
[2018-04-23] MEDS ORDERED: SODIUM CHLORIDE IV ONE (19:30)
[2018-04-23] MEDS ORDERED: WATER IV ONE (19:30)
[2018-04-23 20:18] LABS: Glucose,Whole Blood 60 mg/dL (75-99)
[2018-04-23 20:54] LABS: Glucose,Whole Blood 68 mg/dL (75-99)
[2018-04-23] MEDS ORDERED: NALOXONE 0.4 MG/ML 1 ML VIAL IV PRN (21:10)
[2018-04-23] MEDS ORDERED: METOPROLOL TARTRATE 50 MG TAB PO SCH (23:00)
[2018-04-23] MEDS ORDERED: PRAVASTATIN SODIUM 20 MG TAB PO SCH (23:00)
--- NOTE | 2018-04-23 23:19 | P.HPIM ---
History of Present Illness H&P Date: 04/23/18 Chief Complaint: Hypoglycemia/syncope 62-year-old female with history of end-stage renal disease and diabetes mellitus on insulin pump Patient was at a gas station when apparently she has passed out and then woke up with police around her she was told by EMS that her blood sugar was low in the 20s. She recalls that she checked her insulin before leaving home at around 1:30 and she thinks that probably she accidentally delivered insulin through the pump when she wasn't supposed to because she knew she was in eating immediately. She was going out to have lunch with friends. Patient has Humalog insulin pump with manual delivery system. The insulin dosing has been adjusted per sliding scale 1 week ago. Patient does not report any history of similar events she normally has her blood sugars well-managed. She understands that she shouldn't administer insulin when she is not planning on eating and she thinks she might have accidentally delivered at this time. Patient does part-time yield dialysis at home on daily basis. She otherwise reports that her health is at her baseline with no immediate concerns other than possible diarrhea that started today nonbloody non-melanotic. Denies any abdominal pain fevers chills chest pain or trouble breathing. She reports some neck pain which she thinks probably due to the fall no visible injuries or wounds. Currently she denies any new focal neurologic deficits She is tolerating by mouth intake, and the ER she was started on D10 her blood sugars remained in the low 60s, patient will be admitted for close monitoring of her blood sugar and observation for 24 hours Review of Systems Pertinent positives as noted in HPI. All other systems were reviewed and are negative Past Medical History Past Medical History: Diabetes Mellitus, Dialysis, GERD/Reflux, Hyperlipidemia, Hypertension, Memory Impairment, Renal Disease, Thyroid Disorder Additional Past Medical History / Comment(s): hemodialysis on m,w,f. hx stil syndrome left hand-please use rt arm/hand for iv, blood draws. diabetic neuropathy and diabetic retinopathy, Rt BKA uses prosthesis History of Any Multi-Drug Resistant Organisms: MRSA Date of last positivie culture/infection: 2015 MDRO Source:: rt foot Past Surgical History: Back Surgery, Hysterectomy Additional Past Surgical History / Comment(s): RBKA 01/23/16 R/T DM. neck cervical 4,5,6 fused, right chest permacath for hemodialysis. graft tie off 04/05, eye laser surgery for diabetic retinopathy Past Anesthesia/Blood Transfusion Reactions: No Reported Reaction Past Psychological History: No Psychological Hx Reported Smoking Status: Former smoker Past Alcohol Use History: None Reported Additional Past Alcohol Use History / Comment(s): smoked 25 years 1pack/wk quit 2002. Past Drug Use History: None Reported - Past Family History Mother Family Medical History: Diabetes Mellitus, Hypertension Additional Family Medical History / Comment(s): colon ca Father Family Medical History: Myocardial Infarction ([place]) Medications and Allergies Home Medications Medication Instructions Recorded Confirmed Type Levothyroxine Sodium [Synthroid] 75 mcg PO DAILY 10/09/16 04/23/18 History Metoprolol Tartrate [Lopressor] 50 mg PO HS 10/09/16 04/23/18 History Pantoprazole [Protonix] 40 mg PO DAILY 10/09/16 04/23/18 History Pravastatin Sodium [Pravachol] 20 mg PO HS 10/09/16 04/23/18 History DULoxetine HCL [Cymbalta] 60 mg PO BID 01/10/17 04/23/18 History amLODIPine [Norvasc] 10 mg PO DAILY 02/20/17 04/23/18 History Calcium Acetate [PhosLo] 667 mg PO AC-TID 03/11/17 04/23/18 History Clopidogrel [Plavix] 75 mg PO DAILY 03/11/17 04/23/18 History Rosio-Thomas 1 tab PO DAILY 03/11/17 04/23/18 History Meclizine [Antivert] 25 mg PO TID PRN 04/26/17 04/23/18 History Aspirin [Adult Low Dose Aspirin EC] 81 mg PO HS 06/07/17 04/23/18 History Acetaminophen Tab [Tylenol] 1,000 mg PO Q8H 04/23/18 04/23/18 History Furosemide [Lasix] 80 mg PO BID 04/23/18 04/23/18 History INSULIN LISPRO (For Pump) [humaLOG See Protocol INTRATHECA DIRECTED 04/23/18 04/23/18 History (For Pump)] Losartan [Cozaar] 25 mg PO BID 04/23/18 04/23/18 History Allergies Allergy/AdvReac Type Severity Reaction Status Date / Time gabapentin Allergy Rash/Hives Verified 04/23/18 18:16 lisinopril AdvReac Cough Verified 04/23/18 18:16 Physical Exam Vitals: Vital Signs Pulse Resp BP Pulse Ox 04/23/18 22:00 73 20 146/77 100 04/23/18 20:00 122/69 04/23/18 19:00 149/81 04/23/18 17:35 65 18 145/90 100 Intake and Output 04/23/18 04/23/18 04/24/18 14:59 22:59 06:59 Other: Weight 107.501 kg Constitutional: No acute distress, conversant, pleasant, well developed Eyes: Anicteric sclerae, moist conjunctiva, no lid-lag Pupils equal round reactive to light ENMT: NC/AT Oropharynx clear, no erythema, exudates Neck: Supple, FROM, no masses, or JVD No carotid bruits No thyromegaly Lungs: Clear to auscultation Clear to percussion Normal respiratory effort, no accessory muscle use Cardiovascular: Heart regular in rate and rhythm, No murmurs, gallops, or rubs No peripheral edema Abdominal: Soft, peritoneal dialysis catheter in place no tenderness to palpation no induration or erythema, insulin pump catheter in place in the epigastric region again with no erythema or induration around the insertion site. Nontender, no guarding, rebound or rigidity Abdomen moving with respiration Normoactive bowel sounds No hepatomegaly, No splenomegaly No palpable mass No abdominal wall hernia noted Skin: Normal temperature, tone, texture, turgor No induration No subcutaneous nodules No rash, lesions No ulcers Extremities: Right BKA No digital cyanosis No clubbing Pedal pulses palpable but weak left foot, capillary refill immediate Radial pulses intact and symmetrical No calf tenderness Psychiatric: Alert and oriented to person, place and time Appropriate affect fair judgment Neuro Muscles Strength 5/5 in all 4 extremities (right BKA) Sensation to light touch grossly present throughout Cranial nerves II-XII grossly intact No focal sensory deficits Lymphatics: no palpable cervical or supraclavicular , or inguinal lymph nodes Results CBC & Chem 7: 04/23/18 17:36 04/23/18 17:36 Labs: Abnormal Lab Results - Last 24 Hours (Table) 04/23/18 04/23/18 04/23/18 Range/Units 17:36 17:36 17:45 Lymphocytes # 0.9 L (1.0-4.8) k/uL Potassium 3.3 L (3.5-5.1) mmol/L BUN 47 H (7-17) mg/dL Creatinine 4.99 H (0.52-1.04) mg/dL POC Glucose (mg/dL) 59 L (75-99) mg/dL Calcium 8.0 L (8.4-10.2) mg/dL 04/23/18 04/23/18 04/23/18 Range/Units 18:46 20:17 20:53 Lymphocytes # (1.0-4.8) k/uL Potassium (3.5-5.1) mmol/L BUN (7-17) mg/dL Creatinine (0.52-1.04) mg/dL POC Glucose (mg/dL) 42 L 60 L 68 L (75-99) mg/dL Calcium (8.4-10.2) mg/dL Assessment and Plan Assessment: end-stage renal disease on peritoneal dialysis admitted under observation with anticipated length of stay less than 48 hours due to syncope where she was found to be hypoglycemic in the 20s while she was at a gas station and she was brought to the hospital by EMS. Patient admitted that she administered some insulin without eating. And currently she is asymptomatic laying comfortable and tolerating by mouth intake her blood sugar is in the 60s. Plan: Altered mental status/syncope secondary to hypoglycemia Hypoglycemia secondary to accidental administration of insulin without eating Monitor blood sugars closely Continue D5 with normal saline Encourage by mouth intake Monitor blood sugars closely Continue with insulin sliding scale for diabetes End-stage renal disease patient on peritoneal dialysis daily at home Hypertension continue home medications amlodipine and losartan Hypothyroidism continue with levothyroxine DVT prophylaxis heparin subcu 3 times a day Surrogate decision-maker: Patient's brother CODE STATUS: Full code Discussed with: Patient, ER Anticipated discharge: <48 hours Anticipated discharge pace: Home A total of 50 minutes was spent on the care of this complex patient more than 50 % of the time was spent in counseling and care coordination.
[2018-04-23] MEDS: MECLIZINE 25 MG TAB PO PRN ×3 (23:36→23:39)
[2018-04-23] MEDS: DULoxetine HCL 60 MG CAPSULE.DR PO SCH (23:38)
[2018-04-23] MEDS: LOSARTAN 25 MG TAB PO SCH (23:38)
[2018-04-23] MEDS: FUROSEMIDE 80 MG TAB PO SCH (23:39)
[2018-04-24 00:08] LABS: Glucose,Whole Blood 323 mg/dL (75-99)
[2018-04-24 00:46] VITALS: RESP 18
[2018-04-24 00:51] VITALS: BMI 34.0
[2018-04-24] MEDS: ACETAMINOPHEN TAB 500 MG TAB PO SCH ×2 (01:01→08:15)
[2018-04-24 02:14] LABS: Glucose,Whole Blood 382 mg/dL (75-99)
[2018-04-24 02:36] LABS: Appearance,Urine Clear (Clear); Bacteria,Urine Occasional /hpf; Bilirubin,Urine Negative (Negative); Blood,Urine Small (Negative); Color,Urine Yellow; Glucose,Urine (UA) 2+ (Negative); Hyaline Casts,Urine 1 /lpf (0-2); Ketones,Urine Negative (Negative); Leukocyte Esterase,Urine Negative (Negative); Mucus,Urine Rare /hpf; Nitrite,Urine Negative (Negative); Protein,Urine 1+ (Negative); RBC,Urine 1 /hpf (0-5); Specific Gravity,Urine 1.011 (1.001-1.035); Squamous Epithelial Cell,Urine 3 /hpf (0-4); Urobilinogen,Urine <2.0 mg/dL (<2.0); WBC,Urine <1 /hpf (0-5)
[2018-04-24] MEDS ORDERED: INSULIN ASPART 100 UNIT/ML 1 ML 10 ML VIAL SQ ONE (02:45)
[2018-04-24 04:01] LABS: Glucose,Whole Blood 297 mg/dL (75-99)
[2018-04-24 06:06] LABS: Glucose,Whole Blood 201 mg/dL (75-99)
[2018-04-24] MEDS ORDERED: LEVOTHYROXINE 75 MCG TAB PO SCH (06:30)
[2018-04-24 07:07] VITALS: BP 152/78; PULSE 69; TEMP 97.7
[2018-04-24] MEDS ORDERED: CALCIUM ACETATE 667 MG CAP PO SCH (07:30)
[2018-04-24 08:05] LABS: Glucose,Whole Blood 172 mg/dL (75-99)
[2018-04-24] MEDS: INSULIN ASPART 100 UNIT/ML 1 ML 10 ML VIAL SQ SCH ×2 (08:14→12:00)
[2018-04-24] MEDS: DULoxetine HCL 60 MG CAPSULE.DR PO SCH (08:15)
[2018-04-24] MEDS: FUROSEMIDE 80 MG TAB PO SCH (08:15)
[2018-04-24] MEDS: LOSARTAN 25 MG TAB PO SCH (08:15)
[2018-04-24] MEDS ORDERED: amLODIPine 10 MG TAB PO SCH (09:00)
[2018-04-24] MEDS ORDERED: CLOPIDOGREL 75 MG TAB PO SCH (09:00)
[2018-04-24] MEDS ORDERED: FOLIC ACID-VIT B COMPLEX-VIT C 1 CAP PO SCH (09:00)
[2018-04-24] MEDS ORDERED: PANTOPRAZOLE 40 MG TABLET PO SCH (09:00)
[2018-04-24 09:37] LABS: Glucose,Whole Blood 185 mg/dL (75-99)
--- NOTE | 2018-04-24 11:35 | P.DS ---
Providers Date of admission: 04/23/18 21:10 Expected date of discharge: 04/24/18 Attending physician: Olivier Multani MD Primary care physician: Ailyn Eaton MD Hospital Course: The patient is a 62 yo F with a PMH of DM Type 2 (on Insulin Pump), ESRD on peritoneal dialysis, HTN, and HLD who was brought in via EMS for hypoglycemia and syncope. The patient notes that she was at a gas station yesterday and felt lightheaded and collapsed. Upon awakening, EMS informed her that her FS was in the 20s. The patient was brought in the ED and was placed on a D10 drip w/ FSs in the 60s and subsequently improving. The patient noted that she last used her pump the morning of the incident at 11 am, when she was planning on going to lunch with her friends. She had checked her sugar which was 212 and knew that since she wasn't going to be eating for another few hours, that she shouldn't give herself any insulin. She however could not recall if she accidentally administered a bolus of Insulin at that time. The pump settings were reviewed by the Freight Traffic Consultant and revealed a basal rate varying between 0.675 and 0.775 U/hr over the 24 hours. The pump also showed a logged 1.8 U Insulin administration at 11:12 am which she believes she might have accidentally administered. She is using a sliding scale w/ 1 U of Humalog for every 15 g of carbs and 1 U for every 50 increase in blood sugar over 120. The patient follows w/ Dr Whaley (Endocrinology) and started using the pump 3 months ago. She was last seen by Dr Whaley a week prior to presentation. Discussed with the patient her technique and supplies for checking her FS. She insisted that the supplies are functioning well and are new. Further discussed the disconnect between Insulin administration of 1.8 U at 11:12 am and her very low fingerstick levels found via EMS. The patient noted that she is not using any additional insulin or any oral hypoglycemics. Called the patient's Watchmaker Apprentice's office (Dr Whaley) and was informed that the doctor will not be in office until 05/03/18. Made an appointment for the patient to f/u with her on 05/03/18 @ 12:45 pm. Discussed with the patient the further risks of hypoglycemia due to improper use of the pump or malfunctioning of the device. The patient agreed to use her previous insulin regimen of Levemir with Sliding scale Humalog with the same scale as above. The patient was advised to continue checking her FS regularly and adjust her sliding scale along with the basal insulin rates as warranted. The patient's fingersticks while under observation improved and remained > 150 during her stay. The patient is presently stable and ready for discharge to home. Physical Examination General: Awake, alert, in no acute distress HEENT: NC/AT, anicteric sclerae, moist conjunctiva, no lid-lag, PERRLA, oropharynx clear, no erythema, exudates Cardiovascular: S1/S2 wnl, no murmurs, rubs, or gallops Lungs: Clear to auscultation, normal respiratory effort, no accessory muscle use Abdominal: Soft, nontender, non-distended, no guarding, rebound, or rigidity, normoactive bowel sounds Skin: Warm, dry Extremities: No edema or contractures Psychiatric: Alert and oriented to person, place and time, appropriate affect, Intact judgment Neuro: CN II-XI grossly intact, sensation to light touch grossly present throughout, strength 5/5 throughout Discharge diagnosis: Hypoglycemia, Diabetes mellitus Type 2, ESRD, HTN, HLD A total of 65 minutes of time were spent preparing this complex discharge summary. Patient Condition at Discharge: Stable Plan - Discharge Summary New Discharge Prescriptions: New Insulin Detemir [Levemir Flextouch] 20 unit SQ HS #1 insuln.pen Insulin Lispro [humaLOG Kwikpen] 1 - 10 unit SQ TID-W/MEALS #1 insuln.pen Pen Needle, Diabetic [Pen Needle] 1 each MC DAILY #100 dis.needle Continue Pantoprazole [Protonix] 40 mg PO DAILY Levothyroxine Sodium [Synthroid] 75 mcg PO DAILY Metoprolol Tartrate [Lopressor] 50 mg PO HS Pravastatin Sodium [Pravachol] 20 mg PO HS DULoxetine HCL [Cymbalta] 60 mg PO BID amLODIPine [Norvasc] 10 mg PO DAILY Calcium Acetate [PhosLo] 667 mg PO AC-TID Clopidogrel [Plavix] 75 mg PO DAILY Rosio-Thomas 1 tab PO DAILY Meclizine [Antivert] 25 mg PO TID PRN PRN Reason: Vertigo Aspirin [Adult Low Dose Aspirin EC] 81 mg PO HS Acetaminophen Tab [Tylenol] 1,000 mg PO Q8H Furosemide [Lasix] 80 mg PO BID Losartan [Cozaar] 25 mg PO BID Discontinued INSULIN LISPRO (For Pump) [humaLOG (For Pump)] See Protocol INTRATHECA DIRECTED Discharge Medication List Levothyroxine Sodium [Synthroid] 75 mcg PO DAILY 10/09/16 [History] Metoprolol Tartrate [Lopressor] 50 mg PO HS 10/09/16 [History] Pantoprazole [Protonix] 40 mg PO DAILY 10/09/16 [History] Pravastatin Sodium [Pravachol] 20 mg PO HS 10/09/16 [History] DULoxetine HCL [Cymbalta] 60 mg PO BID 01/10/17 [History] amLODIPine [Norvasc] 10 mg PO DAILY 02/20/17 [History] Calcium Acetate [PhosLo] 667 mg PO AC-TID 03/11/17 [History] Clopidogrel [Plavix] 75 mg PO DAILY 03/11/17 [History] Rosio-Thomas 1 tab PO DAILY 03/11/17 [History] Meclizine [Antivert] 25 mg PO TID PRN 04/26/17 [History] Aspirin [Adult Low Dose Aspirin EC] 81 mg PO HS 06/07/17 [History] Acetaminophen Tab [Tylenol] 1,000 mg PO Q8H 04/23/18 [History] Furosemide [Lasix] 80 mg PO BID 04/23/18 [History] Losartan [Cozaar] 25 mg PO BID 04/23/18 [History] Insulin Detemir [Levemir Flextouch] 20 unit SQ HS #1 insuln.pen 04/24/18 [Rx] Insulin Lispro [humaLOG Kwikpen] 1 - 10 unit SQ TID-W/MEALS #1 insuln.pen [Rx] Pen Needle, Diabetic [Pen Needle] 1 each MC DAILY #100 dis.needle 04/24/18 [Rx] Follow up Appointment(s)/Referral(s): Ailyn Eaton MD [Primary Care Provider] - 1-2 days Amberly Whaley MD [STAFF PHYSICIAN] - 05/03/18 12:45 pm Discharge Disposition: HOME SELF-CARE
[2018-04-24 11:50] LABS: Glucose,Whole Blood 120 mg/dL (75-99)
[2018-04-24] MEDS ORDERED: ASPIRIN 81 MG PO SCH (21:00)
== END 2018-04-24 13:36 | disposition home or self-care (01) ==
LOC: EC 17:26 → 1SOBS 21:10
PROVIDERS: ADMIT Internal Medicine; ATTEND Internal Medicine
DX: E11.649 Type 2 diabetes mellitus with hypoglycemia without coma (principal); E11.22 Type 2 diabetes mellitus with diabetic chronic kidney disease; E11.319 Type 2 diabetes mellitus with unspecified diabetic retinopathy without macular edema; E11.40 Type 2 diabetes mellitus with diabetic neuropathy, unspecified; I12.0 Hypertensive chronic kidney disease with stage 5 chronic kidney disease or end stage renal disease; N18.6 End stage renal disease; E03.9 Hypothyroidism, unspecified; M54.2 Cervicalgia; E78.5 Hyperlipidemia, unspecified; K21.9 Gastro-esophageal reflux disease without esophagitis; Z99.2 Dependence on renal dialysis; Z96.41 Presence of insulin pump (external) (internal); Z79.02 Long term (current) use of antithrombotics/antiplatelets; Z79.4 Long term (current) use of insulin; Z79.82 Long term (current) use of aspirin; Z79.890 Hormone replacement therapy; Z79.899 Other long term (current) drug therapy; Z88.8 Allergy status to other drugs, medicaments and biological substances; Z89.511 Acquired absence of right leg below knee; Z98.1 Arthrodesis status; Z87.891 Personal history of nicotine dependence; Z86.14 Personal history of Methicillin resistant Staphylococcus aureus infection; Z80.0 Family history of malignant neoplasm of digestive organs; Z82.49 Family history of ischemic heart disease and other diseases of the circulatory system
CPT/HCPCS: 96376; 96365; 96366; 99285; 36415; 80048; 85025; 81001; 71046; G0378 ×2; 96360; 96374; 96375

== ENCOUNTER 2018-11-08 18:44 | Inpatient (IN) | payer MEDICARE ==
[2018-11-08] MEDS ORDERED: ONDANSETRON 4 MG/2 ML VIAL IVP STA (19:13)
[2018-11-08] MEDS ORDERED: SODIUM CHLORIDE 0.9% 1,000 ML IV STA ×2 (19:13)
[2018-11-08] MEDS ORDERED: PANTOPRAZOLE 40 MG/10 ML VIAL IVP STA (19:13)
[2018-11-08] MEDS ORDERED: MORPHINE SULFATE 4 MG/ML SYRINGE IV STA (19:13)
--- NOTE | 2018-11-08 19:17 | ED ---
Abdominal Pain HPI - General Chief Complaint: Abdominal Pain Stated Complaint: abd pain Time Seen by Provider: 11/08/18 19:00 Source: patient, RN notes reviewed, old records reviewed Mode of arrival: ambulatory Limitations: no limitations - History of Present Illness Initial Comments: Patient is a 63-year-old female who presents emergency department today for evaluation for onset of vomiting, lower abdominal pain and diarrhea. Patient reports symptoms started this afternoon. Denies history of sick contacts. Patient reports that she has had no significant chest pressure is breath. She does have a history of peritoneal dialysis. Patient states that she has chills at this time. Denies a history of sick contacts. - Related Data Home Medications Medication Instructions Recorded Confirmed Levothyroxine Sodium [Synthroid] 75 mcg PO DAILY 10/09/16 04/23/18 Metoprolol Tartrate [Lopressor] 50 mg PO HS 10/09/16 04/23/18 Pantoprazole [Protonix] 40 mg PO DAILY 10/09/16 04/23/18 Pravastatin Sodium [Pravachol] 20 mg PO HS 10/09/16 04/23/18 DULoxetine HCL [Cymbalta] 60 mg PO BID 01/10/17 04/23/18 amLODIPine [Norvasc] 10 mg PO DAILY 02/20/17 04/23/18 Calcium Acetate [PhosLo] 667 mg PO AC-TID 03/11/17 04/23/18 Clopidogrel [Plavix] 75 mg PO DAILY 03/11/17 04/23/18 Rosio-Thomas 1 tab PO DAILY 03/11/17 04/23/18 Meclizine [Antivert] 25 mg PO TID PRN 04/26/17 04/23/18 Aspirin [Adult Low Dose Aspirin EC] 81 mg PO HS 06/07/17 04/23/18 Acetaminophen Tab [Tylenol] 1,000 mg PO Q8H 04/23/18 04/23/18 Furosemide [Lasix] 80 mg PO BID 04/23/18 04/23/18 Losartan [Cozaar] 25 mg PO BID 04/23/18 04/23/18 Previous Rx's Medication Instructions Recorded Insulin Detemir [Levemir Flextouch] 20 unit SQ HS #1 insuln.pen 04/24/18 Insulin Lispro [humaLOG Kwikpen] 1 - 10 unit SQ TID-W/MEALS #1 04/24/18 insuln.pen Pen Needle, Diabetic [Pen Needle] 1 each MC DAILY #100 dis.needle 04/24/18 Allergies Allergy/AdvReac Type Severity Reaction Status Date / Time gabapentin Allergy Rash/Hives Verified 11/08/18 18:49 lisinopril AdvReac Cough Verified 11/08/18 18:49 Review of Systems ROS Statement: Those systems with pertinent positive or pertinent negative responses have been documented in the HPI. ROS Other: All systems not noted in ROS Statement are negative. Past Medical History Past Medical History: Diabetes Mellitus, Dialysis, GERD/Reflux, Hyperlipidemia, Hypertension, Memory Impairment, Renal Disease, Thyroid Disorder Additional Past Medical History / Comment(s): peritoneal dialysis daily over night. hx stil syndrome left hand-please use rt arm/hand for iv, blood draws. diabetic neuropathy and diabetic retinopathy, Rt BKA uses prosthesis History of Any Multi-Drug Resistant Organisms: MRSA Date of last positivie culture/infection: 2015 MDRO Source:: rt foot Past Surgical History: Back Surgery, Hysterectomy Additional Past Surgical History / Comment(s): RBKA 01/23/16 R/T DM. neck cervical 4,5,6 fused. graft tie off 04/05/2017, eye laser surgery for diabetic retinopathy Past Anesthesia/Blood Transfusion Reactions: No Reported Reaction Past Psychological History: No Psychological Hx Reported Smoking Status: Former smoker Past Alcohol Use History: Occasional Past Drug Use History: None Reported - Past Family History Mother Family Medical History: Diabetes Mellitus, Hypertension Additional Family Medical History / Comment(s): colon ca Father Family Medical History: Myocardial Infarction ([place]) General Exam - General Exam Comments Initial Comments: 63-year-old female. Alert and oriented. Patient upon my entering the room started to vomit and states she had to use the restroom to have diarrhea. Escorted Patient to bathroom Limitations: no limitations General appearance: alert, in no apparent distress Head exam: Present: atraumatic, normocephalic, normal inspection Eye exam: Present: normal appearance, PERRL, EOMI. Absent: scleral icterus, conjunctival injection, periorbital swelling ENT exam: Present: normal exam, mucous membranes moist Neck exam: Present: normal inspection. Absent: tenderness, meningismus, lymphadenopathy Respiratory exam: Present: normal lung sounds bilaterally. Absent: respiratory distress, wheezes, rales, rhonchi, stridor Cardiovascular Exam: Present: regular rate, normal rhythm, normal heart sounds. Absent: systolic murmur, diastolic murmur, rubs, gallop, clicks GI/Abdominal exam: Present: soft, tenderness (diffuse tenderness. ), normal bowel sounds, other (pertioneal dialysis cath noted). Absent: distended, guarding, rebound, rigid Extremities exam: Present: normal inspection, full ROM, normal capillary refill, other (R leg below knee amputee). Absent: tenderness, pedal edema, joint swelling, calf tenderness Back exam: Present: normal inspection Neurological exam: Present: alert, oriented X3, CN II-XII intact Psychiatric exam: Present: normal affect, normal mood Skin exam: Present: warm, dry, intact, normal color. Absent: rash Course Vital Signs 11/08/18 18:49 Temperature 98.6 F Pulse Rate 77 Respiratory 18 Rate Blood Pressure 130/78 O2 Sat by Pulse 96 Oximetry Medical Decision Making - Medical Decision Making Patient's a 63-year-old female with history appears hemodialysis doing it every night. She presents today with diffuse abdominal pain, nausea and vomiting and diarrhea episodes. Symptoms started abruptly this afternoon. She reports emergency department with chills. Diffuse abdominal tenderness. Patient's labwork was reviewed and relatively unremarkable. BUN and creatinine are poor however this is been seen in previous. Patient reports that her last dialysis yesterday evening had normal fluid output. No cloudy fluid that she noted. Patient had a CT head and pelvis which shows no significant changes. She reports she also had a fall this afternoon complaints of right shoulder pain. This x-ray was read normal. She has full range of motion noted and is neurovascularly intact. Patient was given 2 g of Rocephin at this time for concern for SBP. Discussed that we will need to get appear to have dialysis sample and do her dialysis overnight. Patient's case discussed with Dr. Amado who discussed the case with on-call physician. - Lab Data Result diagrams: 11/08/18 20:20 11/08/18 20:20 Lab Results 11/08/18 11/08/18 11/08/18 Range/Units 20:20 20:20 20:20 WBC 10.1 (3.8-10.6) k/uL RBC 3.15 L (3.80-5.40) m/uL Hgb 9.7 L (11.4-16.0) gm/dL Hct 31.4 L (34.0-46.0) % MCV 99.5 (80.0-100.0) fL MCH 30.8 (25.0-35.0) pg MCHC 30.9 L (31.0-37.0) g/dL RDW 15.9 H (11.5-15.5) % Plt Count 213 (150-450) k/uL Neutrophils % 89 % Lymphocytes % 5 % Monocytes % 3 % Eosinophils % 1 % Basophils % 0 % Neutrophils # 9.0 H (1.3-7.7) k/uL Lymphocytes # 0.5 L (1.0-4.8) k/uL Monocytes # 0.3 (0-1.0) k/uL Eosinophils # 0.2 (0-0.7) k/uL Basophils # 0.0 (0-0.2) k/uL Hypochromasia Slight Macrocytosis Slight Sodium 143 (137-145) mmol/L Potassium 4.0 (3.5-5.1) mmol/L Chloride 103 (98-107) mmol/L Carbon Dioxide 32 H (22-30) mmol/L Anion Gap 8 mmol/L BUN 59 H (7-17) mg/dL Creatinine 8.14 H* (0.52-1.04) mg/dL Est GFR (CKD-EPI)AfAm 5 (>60 ml/min/1.73 sqM) Est GFR (CKD-EPI)NonAf 5 (>60 ml/min/1.73 sqM) Glucose 89 (74-99) mg/dL Plasma Lactic Acid James 1.8 (0.7-2.0) mmol/L Calcium 6.8 L (8.4-10.2) mg/dL Total Bilirubin 0.4 (0.2-1.3) mg/dL AST 21 (14-36) U/L ALT 21 (9-52) U/L Alkaline Phosphatase 81 (38-126) U/L Total Protein 6.0 L (6.3-8.2) g/dL Albumin 3.1 L (3.5-5.0) g/dL Amylase 64 (30-110) U/L Lipase 62 (23-300) U/L - Radiology Data Radiology results: report reviewed Chest x-ray shows increased lung markings and physical pleuritic congestion but no overt heart failure. Heart appears slightly increased compared to last exam. Negative right shoulder exam. CT shows pneumoperitoneum consistent with intraperitoneal catheter. Patchy atelectasis. Bilateral nonspecific retroperitoneal lymph nodes measuring up to 1.5 cm. Disposition Clinical Impression: End stage renal disease on dialysis, Debility, Hypertension, Intractable vomiting with nausea, Diarrhea Disposition: ADMITTED IP TO THIS [facility] Condition: Stable Is patient prescribed a controlled substance at d/c from ED?: No Referrals: Ailyn Eaton MD [Primary Care Provider] - 1-2 days Time of Disposition: 23:42
[2018-11-08 20:47] LABS: Basophils % (A) 0 %; Eosinophils # (A) 0.2 k/uL (0-0.7); Eosinophils % (A) 1 %; HCT 31.4 % (34.0-46.0); HGB 9.7 gm/dL (11.4-16.0); Hypochromasia Slight; Lymphocytes # (A) 0.5 k/uL (1.0-4.8); Lymphocytes % (A) 5 %; MCH 30.8 pg (25.0-35.0); MCHC 30.9 g/dL (31.0-37.0); MCV 99.5 fL (80.0-100.0); Macrocytosis Slight; Monocytes # (A) 0.3 k/uL (0-1.0); Monocytes % (A) 3 %; Neutrophils % (A) 89 %; Platelet Count 213 k/uL (150-450); RBC 3.15 m/uL (3.80-5.40); RDW 15.9 % (11.5-15.5); WBC 10.1 k/uL (3.8-10.6)
[2018-11-08 21:21] LABS: Albumin 3.1 g/dL (3.5-5.0); Calcium 6.8 mg/dL (8.4-10.2); Total Bilirubin 0.4 mg/dL (0.2-1.3)
--- NOTE | 2018-11-08 21:27 | XR ---
EXAMINATION TYPE: XR shoulder complete RT DATE OF EXAM: 11/08/2018 COMPARISON: NONE HISTORY: Shoulder pain TECHNIQUE: 3 views FINDINGS: There is spurring at the AC joint. I see no fracture nor dislocation. IMPRESSION: Negative right shoulder exam.
--- NOTE | 2018-11-08 21:29 | XR ---
EXAMINATION TYPE: XR chest 2V DATE OF EXAM: 11/08/2018 COMPARISON: 04/23/2018 HISTORY: Shoulder pain TECHNIQUE: Frontal and lateral views of the chest are obtained. FINDINGS: There is some coarsening of interstitial pulmonary markings. Heart is enlarged. There is n o gross heart failure. Costophrenic angles appear clear. Bony thorax is intact. IMPRESSION: Increased lung markings consistent with mild pulmonary congestion but no overt heart tonya lure. Heart appears increased slightly compared to old exam.
--- NOTE | 2018-11-08 21:48 | CT ---
EXAMINATION TYPE: CT abdomen pelvis wo con DATE OF EXAM: 11/08/2018 COMPARISON: None HISTORY: abdominal pain and fever CT DLP: 881.4 mGycm Automated exposure control for dose reduction was used. TECHNIQUE: Helical acquisition of images was performed from the lung bases through the pelvis. FINDINGS: There is some patchy atelectasis at the lung bases. Heart is enlarged. Liver spleen stomach pancreas gallbladder appear normal. Bile ducts are not dilated. There is no adrenal mass. Kidneys show no hydronephrosis. Ureters are not dilated. There is no retrop eritoneal adenopathy. Bladder distends smoothly. There is intraperitoneal dialysis catheter in the lo wer abdomen. There are small amount of free fluid in the abdomen as well as pneumoperitoneum. There is no evidence of a bowel obstruction. There is no mesenteric edema. There are multiple retrope ritoneal lymph nodes that measure up to 1.5 cm. There is subcutaneous edema around the entire abdomen . Lumbar vertebra show no compression fracture. I see no bony destructive process. The bony pelvis is i ntact. IMPRESSION: PNEUMOPERITONEUM CONSISTENT WITH INTRAPERITONEAL CATHETER. PATCHY ATELECTASIS AT THE LUNG BASES. THERE IS MILD NONSPECIFIC MULTIPLE RETROPERITONEAL LYMPH NODES UP TO 1.5 CM OF UNCERTAIN SIGNIFICANCE .
[2018-11-08] MEDS ORDERED: cefTRIAXone IN SWFI 1,000 MG/10 ML SYRINGE IVP STA (21:58)
[2018-11-08] MEDS ORDERED: IBUPROFEN 400 MG TAB PO PRN (23:43)
[2018-11-08] MEDS ORDERED: NALOXONE 0.4 MG/ML 1 ML VIAL IV PRN (23:43)
[2018-11-08] MEDS ORDERED: MORPHINE SULFATE 4 MG/ML SYRINGE IV PRN (23:43)
[2018-11-08] MEDS ORDERED: ONDANSETRON 4 MG/2 ML VIAL IVP PRN (23:43)
[2018-11-08] MEDS: ACETAMINOPHEN TAB 325 MG TAB PO PRN (23:57)
[2018-11-09 03:03] LABS: Glucose,Whole Blood 59 mg/dL (75-99)
[2018-11-09 03:29] LABS: Glucose,Whole Blood 61 mg/dL (75-99)
[2018-11-09] MEDS: SODIUM CHLORIDE 0.9% 1,000 ML IV SCH ×2 (03:29→09:16)
[2018-11-09 04:05] LABS: Glucose,Whole Blood 89 mg/dL (75-99)
[2018-11-09] MEDS: HYDROmorphone 0.5 MG/0.5 ML SYRINGE IVP PRN (05:41)
[2018-11-09 06:57] LABS: Glucose,Whole Blood 122 mg/dL (75-99)
[2018-11-09] MEDS: PANTOPRAZOLE 40 MG/10 ML VIAL IV SCH (09:13)
[2018-11-09] MEDS ORDERED: PANTOPRAZOLE 40 MG TABLET PO SCH (09:30)
[2018-11-09 09:43] LABS: Glucose,Whole Blood 169 mg/dL (75-99)
--- NOTE | 2018-11-09 09:44 | P.HPIM ---
History of Present Illness H&P Date: 11/09/18 Chief Complaint: Abdominal pain Patient is 63-year-old black female who reported to the emergency room with lower abdominal pain that has been going on for a couple of days associated with nausea and vomiting. She reports her pain as moderate and sharp. She denies subjective fever or chills. She denies chest pain or shortness of breath. She continues to use peritoneal dialysis, cycler. At the time of examination patient is sleepy but answers questions appropriately. Review of Systems 10 systems reviewed pertinent positive and negative findings as in HPI. Positive for abdominal pain nausea vomiting and diarrhea no chest pain no shortn ess of breath Past Medical History Past Medical History: Diabetes Mellitus, Dialysis, GERD/Reflux, Hyperlipidemia, Hypertension, Memory Impairment, Renal Disease, Thyroid Disorder Additional Past Medical History / Comment(s): peritoneal dialysis daily over night. hx stil syndrome left hand-please use rt arm/hand for iv, blood draws. diabetic neuropathy and diabetic retinopathy, Rt BKA uses prosthesis History of Any Multi-Drug Resistant Organisms: MRSA Date of last positivie culture/infection: 2015 MDRO Source:: rt foot Past Surgical History: Back Surgery, Hysterectomy Additional Past Surgical History / Comment(s): RBKA 01/23/16 R/T DM. neck cervical 4,5,6 fused. graft tie off 04/05/2017, eye laser surgery for diabetic retinopathy Past Anesthesia/Blood Transfusion Reactions: No Reported Reaction Past Psychological History: Anxiety, Depression Smoking Status: Former smoker Past Alcohol Use History: Occasional Additional Past Alcohol Use History / Comment(s): smoked 25 years 1pack/wk quit 2002. Past Drug Use History: None Reported - Past Family History Mother Family Medical History: Diabetes Mellitus, Hypertension Additional Family Medical History / Comment(s): colon ca Father Family Medical History: Myocardial Infarction ([place]) Medications and Allergies Home Medications Medication Instructions Recorded Confirmed Type Levothyroxine Sodium [Synthroid] 75 mcg PO DAILY 10/09/16 11/09/18 History Metoprolol Tartrate [Lopressor] 25 mg PO BID 10/09/16 11/09/18 History Pantoprazole [Protonix] 40 mg PO DAILY 10/09/16 11/09/18 History Pravastatin Sodium [Pravachol] 20 mg PO HS 10/09/16 11/09/18 History Calcium Acetate [PhosLo] 667 mg PO AC-TID 03/11/17 11/09/18 History Clopidogrel [Plavix] 75 mg PO DAILY 03/11/17 11/09/18 History Rosio-Thomas 1 tab PO DAILY 03/11/17 11/09/18 History Meclizine [Antivert] 25 mg PO TID PRN 04/26/17 11/09/18 History Aspirin [Adult Low Dose Aspirin EC] 81 mg PO HS 06/07/17 11/09/18 History Acetaminophen Tab [Tylenol] 1,000 mg PO Q8H 04/23/18 11/09/18 History Furosemide [Lasix] 80 mg PO BID 04/23/18 11/09/18 History Losartan [Cozaar] 25 mg PO BID 04/23/18 11/09/18 History Pen Needle, Diabetic [Pen Needle] 1 each MC DAILY #100 dis.needle 04/24/18 11/09/18 Rx Allergies Allergy/AdvReac Type Severity Reaction Status Date / Time gabapentin Allergy Rash/Hives Verified 11/09/18 03:03 lisinopril AdvReac Cough Verified 11/09/18 03:03 Physical Exam Vitals: Vital Signs Temp Pulse Pulse Resp BP BP BP 11/09/18 09:19 22 11/09/18 09:18 22 11/09/18 09:17 98.9 F 73 22 130/78 11/09/18 06:00 98.8 F 73 12 115/79 11/09/18 02:58 98.5 F 76 18 129/75 11/09/18 02:31 101.0 F H 78 18 138/78 11/09/18 01:11 101.3 F H 78 18 142/70 11/09/18 00:00 103.0 F H 96 18 136/66 11/08/18 18:49 98.6 F 77 18 130/78 Pulse Ox 11/09/18 09:19 95 11/09/18 09:18 75 L 11/09/18 09:17 11/09/18 06:00 94 L 11/09/18 02:58 95 11/09/18 02:31 96 11/09/18 01:11 96 11/09/18 00:00 95 11/08/18 18:49 96 Intake and Output 11/08/18 11/09/18 11/09/18 22:59 06:59 14:59 Other: # Voids 0 Weight 112 kg Constitutional: No acute distress, sleepy Eyes: Anicteric sclerae, PERRLA ENMT: NC/AT no erythema, exudates Neck:Supple, FROM, no masses, or JVD, No carotid bruits; No thyromegaly Lungs: Clear to auscultation, Clear to percussion Cardiovascular: Heart regular in rate and rhythm, No murmurs, gallops, or rubs no peripheral edema Abdominal: Soft , nom distended, no guarding, no rebound or rigidity, mild tenderness. + PD catheter in place Skin: Normal temperature, tone, texture, turgor, No induration No subcutaneous nodules, No rash, lesions, No ulcers Extremities:No digital cyanosis No clubbing, 1+ edema left lower extremity. Right BKA Psychiatric: Lethargic Neuro: Cranial nerves II-XII grossly intact. Results CBC & Chem 7: 11/08/18 20:20 11/08/18 20:20 Labs: Abnormal Lab Results - Last 24 Hours (Table) 11/08/18 11/08/18 11/09/18 Range/Units 20:20 20:20 02:52 RBC 3.15 L (3.80-5.40) m/uL Hgb 9.7 L (11.4-16.0) gm/dL Hct 31.4 L (34.0-46.0) % MCHC 30.9 L (31.0-37.0) g/dL RDW 15.9 H (11.5-15.5) % Neutrophils # 9.0 H (1.3-7.7) k/uL Lymphocytes # 0.5 L (1.0-4.8) k/uL Carbon Dioxide 32 H (22-30) mmol/L BUN 59 H (7-17) mg/dL Creatinine 8.14 H* (0.52-1.04) mg/dL POC Glucose (mg/dL) 59 L (75-99) mg/dL Calcium 6.8 L (8.4-10.2) mg/dL Total Protein 6.0 L (6.3-8.2) g/dL Albumin 3.1 L (3.5-5.0) g/dL 07/13/19 07/13/19 Range/Units 03:27 06:53 RBC (3.80-5.40) m/uL Hgb (11.4-16.0) gm/dL Hct (34.0-46.0) % MCHC (31.0-37.0) g/dL RDW (11.5-15.5) % Neutrophils # (1.3-7.7) k/uL Lymphocytes # (1.0-4.8) k/uL Carbon Dioxide (22-30) mmol/L BUN (7-17) mg/dL Creatinine (0.52-1.04) mg/dL POC Glucose (mg/dL) 61 L 122 H (75-99) mg/dL Calcium (8.4-10.2) mg/dL Total Protein (6.3-8.2) g/dL Albumin (3.5-5.0) g/dL Thrombosis Risk Factor Assmnt - Choose All That Apply Any of the Below Risk Factors Present?: Yes Each Factor Represents 1 point: Obesity (BMI >25) Each Risk Factor Represents 2 Points: Age 61-74 years Thrombosis Risk Factor Assessment Total Risk Factor Score: 3 Thrombosis Risk Factor Assessment Level: Moderate Risk Assessment and Plan Assessment: 1. Abdominal pain nausea and vomiting, unspecified etiology: Continue conservative treatment. 2. Pulmonary infiltrates unspecified significance: on Rocephin, we will add Zithromax and 3. End-stage renal disease on PD secondary to diabetes: Continue PD, nephrology consultation. 4. Hypothyroidism: Continue Synthroid 5. Secondary hyperparathyroidism: Continue PhosLo 6. Diarrhea is type II with end-stage renal disease: Continue on insulin sliding scale 7. Essential hypertension: Hold outpatient medications except metoprolol 8. DVT prophylaxis: SCDs
--- NOTE | 2018-11-09 09:47 | P.NPCON ---
History of Present Illness - Reason for Consult end stage renal disease - Chief Complaint Abdominal pain - History of Present Illness This is a 63-year-old female known to us with end-stage renal failure who came in with abdominal pain for about 1 day prior to admission. Currently she is somewhat drowsy because of recently getting narcotics. Complains of abdominal pain. No nausea vomiting no diarrhea and she did have temperature of 103 here in the hospital. Denies any shortness of breath, cough, chest pain. She is known with ESRD on dialysis about 2-1/2 years. She is using a cycler with 1.5% 2.5% 5 L bags for a total of approximately 10 L of exchanges overnight. She says she is not doing any last fill but maybe doing a midday exchange. Because of her drowsiness since her history may be not very reliable. 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 This was dated 01/23/2016. She had laser surgery for diabetic retinopathy. Past Medical History Past Medical History: Diabetes Mellitus, Dialysis, GERD/Reflux, Hyperlipidemia, Hypertension, Memory Impairment, Renal Disease, Thyroid Disorder Additional Past Medical History / Comment(s): peritoneal dialysis daily over night. hx stil syndrome left hand-please use rt arm/hand for iv, blood draws. diabetic neuropathy and diabetic retinopathy, Rt BKA uses prosthesis History of Any Multi-Drug Resistant Organisms: MRSA Date of last positivie culture/infection: 2015 MDRO Source:: rt foot Past Surgical History: Back Surgery, Hysterectomy Additional Past Surgical History / Comment(s): RBKA 01/23/16 R/T DM. neck cervical 4,5,6 fused. graft tie off 04/05/2017, eye laser surgery for diabetic retinopathy Past Anesthesia/Blood Transfusion Reactions: No Reported Reaction Past Psychological History: Anxiety, Depression Smoking Status: Former smoker Past Alcohol Use History: Occasional Additional Past Alcohol Use History / Comment(s): smoked 25 years 1pack/wk quit 2002. Past Drug Use History: None Reported - Past Family History Mother Family Medical History: Diabetes Mellitus, Hypertension Additional Family Medical History / Comment(s): colon ca Father Family Medical History: Myocardial Infarction ([place]) Medications and Allergies Home Medications Medication Instructions Recorded Confirmed Type Levothyroxine Sodium [Synthroid] 75 mcg PO DAILY 10/09/16 11/09/18 History Metoprolol Tartrate [Lopressor] 25 mg PO BID 10/09/16 11/09/18 History Pantoprazole [Protonix] 40 mg PO DAILY 10/09/16 11/09/18 History Pravastatin Sodium [Pravachol] 20 mg PO HS 10/09/16 11/09/18 History Calcium Acetate [PhosLo] 667 mg PO AC-TID 03/11/17 11/09/18 History Clopidogrel [Plavix] 75 mg PO DAILY 03/11/17 11/09/18 History Rosio-Thomas 1 tab PO DAILY 03/11/17 11/09/18 History Meclizine [Antivert] 25 mg PO TID PRN 04/26/17 11/09/18 History Aspirin [Adult Low Dose Aspirin EC] 81 mg PO HS 06/07/17 11/09/18 History Acetaminophen Tab [Tylenol] 1,000 mg PO Q8H 04/23/18 11/09/18 History Furosemide [Lasix] 80 mg PO BID 04/23/18 11/09/18 History Losartan [Cozaar] 25 mg PO BID 04/23/18 11/09/18 History Pen Needle, Diabetic [Pen Needle] 1 each MC DAILY #100 dis.needle 04/24/18 11/09/18 Rx Allergies Allergy/AdvReac Type Severity Reaction Status Date / Time gabapentin Allergy Rash/Hives Verified 11/09/18 03:03 lisinopril AdvReac Cough Verified 11/09/18 03:03 Physical Exam Vitals: Vital Signs Temp Pulse Pulse Resp BP BP BP 11/09/18 09:19 22 11/09/18 09:18 22 11/09/18 09:17 98.9 F 73 22 130/78 11/09/18 06:00 98.8 F 73 12 115/79 11/09/18 02:58 98.5 F 76 18 129/75 11/09/18 02:31 101.0 F H 78 18 138/78 11/09/18 01:11 101.3 F H 78 18 142/70 11/09/18 00:00 103.0 F H 96 18 136/66 11/08/18 18:49 98.6 F 77 18 130/78 Pulse Ox 11/09/18 09:19 95 11/09/18 09:18 75 L 11/09/18 09:17 11/09/18 06:00 94 L 11/09/18 02:58 95 11/09/18 02:31 96 11/09/18 01:11 96 11/09/18 00:00 95 11/08/18 18:49 96 Intake and Output 11/08/18 11/09/18 11/09/18 22:59 06:59 14:59 Other: # Voids 0 Weight 112 kg On examination she she is arousable and answers questions but tends to sleep. HEENT exam no JVP neck is supple no facial asymmetry pupils are equal Lungs are significant for coarse crackle right base with good air entry bilaterally Heart sounds are unremarkable for any murmur rub gallop Abdomen is somewhat obese and mildly tender. Exit site of the PD catheter is clear Extremity exam reveals 2+ edema. Neurologically somewhat lethargic but arousable follows commands and tries to answer question and is able to answer most of the questions. There is no focal motor deficit Results - Lab Results Most recent lab results Calcium 6.8 mg/dL (8.4-10.2) L 11/08/18 20:20 11/08/18 20:20 11/08/18 20:20 Assessment and Plan Assessment: Impression 1. ESRD patient on peritoneal dialysis at home with a cycler admitted with abdominal pain, suggestive of peritonitis. 2. Crackles right lung base, the chest x-ray showing possible pulmonary congestion. 3. Diabetic nephropathy, diabetic retinopathy, peripheral vascular disease with remote right below knee amputation. 4. Anemia of ESRD, hemoglobin is 9.7 5. Peripheral vascular disease with right below-knee amputation in 2016 Recommendation 1. Stat PD cell count culture Gram stain to be called to me 2. Stat intra-peritoneal vancomycin 2 g. 3. Stat IV gentamicin to be dosed by pharmacy. 4. Reduce IV fluids to KVO because of CHF and edema 5. Maintain outpatient medications 6. Start Epogen 4000 units 3 times a week, subcu 7. Maintain binders same as outpatient. 8. Check iron saturation 9. Will use 2.5% 2000 mL 4 exchanges to see if we can remove some fluid because of the congestive heart failure 10. Watch blood sugars and deferred to the hospitalist for control of the blood sugar. Thank you for this consultation and continue to follow closely
[2018-11-09] MEDS: LEVOTHYROXINE 75 MCG TAB PO SCH (10:31)
[2018-11-09] MEDS: CLOPIDOGREL 75 MG TAB PO SCH (10:31)
[2018-11-09] MEDS: FUROSEMIDE 80 MG TAB PO SCH ×2 (10:31→15:09)
[2018-11-09] MEDS: AZITHROMYCIN 500 MG in SODIUM CHLORIDE 0.9% 250 ML IVPB SCH (11:00)
[2018-11-09] MEDS ORDERED: DIALYSIS DEX INTRAPERIT ONE ×2 (11:00)
[2018-11-09] MEDS ORDERED: VANCOMYCIN INTRAPERIT ONE ×2 (11:00)
[2018-11-09] MEDS: FOLIC ACID-VIT B COMPLEX-VIT C 1 CAP PO SCH (11:00)
[2018-11-09 11:28] LABS: Appearance,Urine Cloudy (Clear); Bacteria,Urine Rare /hpf; Bilirubin,Urine Negative (Negative); Blood,Urine Trace (Negative); Color,Urine Yellow; Glucose,Urine (UA) Negative (Negative); Hyaline Casts,Urine 1 /lpf (0-2); Ketones,Urine Negative (Negative); Leukocyte Esterase,Urine Moderate (Negative); Nitrite,Urine Negative (Negative); PH, Urine 5.5 (5.0-8.0); Protein,Urine 1+ (Negative); RBC,Urine 3 /hpf (0-5); Specific Gravity,Urine 1.014 (1.001-1.035); Squamous Epithelial Cell,Urine 2 /hpf (0-4)
[2018-11-09 11:39] LABS: Appearance,BF Cloudy; Color,BF Yellow; RBC, Body Fluid 0 /uL
[2018-11-09 11:40] LABS: Nucleated Cells, Body Fluid 35600 /uL
[2018-11-09 11:41] LABS: Mononuclear WBC,Body Fluid 8 %; Polynuclear WBC,Body Fluid 92 %; Total Cells Counted,Body Fluid 100
[2018-11-09 12:09] LABS: Glucose,Whole Blood 212 mg/dL (75-99)
[2018-11-09] MEDS: GENTAMICIN PER PHARMACY MISCELLANE SCH (12:16)
[2018-11-09] MEDS: DARBEPOETIN ALFA 40 MCG/0.4 ML SYRINGE SQ SCH (12:57)
[2018-11-09] MEDS: CALCIUM ACETATE 667 MG CAP PO SCH ×2 (12:58→17:59)
[2018-11-09] MEDS ORDERED: GENTAMICIN 150 MG in SODIUM CHLORIDE 0.9% 100 ML IVPB ONE (13:00)
[2018-11-09] MEDS ORDERED: VANCOMYCIN IV PER PHARMACY 1 EACH MISC MISCELLANE PRN (13:38)
[2018-11-09] MEDS ORDERED: VANCOMYCIN 1,750 MG in SODIUM CHLORIDE 0.9% 500 ML 500 ML IVPB ONE (13:45)
[2018-11-09 17:13] LABS: Glucose,Whole Blood 276 mg/dL (75-99)
--- NOTE | 2018-11-09 17:41 | P.GSCN ---
History of Present Illness Consult date: 11/09/18 Reason for Consult: Peritoneal dialysis catheter malfunction History of present illness: 63-year-old female admitted to the hospital with confusion and abdominal pain. Patient was found to have suspected catheter-related peritonitis. When the nursing staff today was utilizing her right-sided peritoneal dialysis catheter that identified fluid leaking from the tubing on the extension side. This is the portion of the catheter that is intermittently replaced. Patient is not aware of any trauma to that area. No history of leakage before. Review of Systems The patient denies any acute changes in vision or hearing, no dysphagia or odynophagia, no chest pain or shortness of breath, no dysuria or hematuria, no headache, no runny nose, no rectal bleeding or melena, no unexplained weight loss Past Medical History Past Medical History: Diabetes Mellitus, Dialysis, GERD/Reflux, Hyperlipidemia, Hypertension, Memory Impairment, Renal Disease, Thyroid Disorder Additional Past Medical History / Comment(s): peritoneal dialysis daily over night. hx stil syndrome left hand-please use rt arm/hand for iv, blood draws. diabetic neuropathy and diabetic retinopathy, Rt BKA uses prosthesis History of Any Multi-Drug Resistant Organisms: MRSA Year Discovered:: 2015 MDRO Source:: rt foot Past Surgical History: Back Surgery, Hysterectomy Additional Past Surgical History / Comment(s): RBKA 01/23/16 R/T DM. neck cervical 4,5,6 fused. graft tie off 04/05/2017, eye laser surgery for diabetic retinopathy Past Anesthesia/Blood Transfusion Reactions: No Reported Reaction Past Psychological History: Anxiety, Depression Smoking Status: Former smoker Past Alcohol Use History: Occasional Additional Past Alcohol Use History / Comment(s): smoked 25 years 1pack/wk quit 2002. Past Drug Use History: None Reported - Past Family History Mother Family Medical History: Diabetes Mellitus, Hypertension Additional Family Medical History / Comment(s): colon ca Father Family Medical History: Myocardial Infarction ([place]) Medications and Allergies Home Medications Medication Instructions Recorded Confirmed Type Levothyroxine Sodium [Synthroid] 75 mcg PO DAILY 10/09/16 11/09/18 History Pantoprazole [Protonix] 40 mg PO DAILY 10/09/16 11/09/18 History Pravastatin Sodium [Pravachol] 20 mg PO HS 10/09/16 11/09/18 History Calcium Acetate [PhosLo] 667 mg PO AC-TID 03/11/17 11/09/18 History Clopidogrel [Plavix] 75 mg PO DAILY 03/11/17 11/09/18 History Rosio-Thomas 1 tab PO DAILY 03/11/17 11/09/18 History Meclizine [Antivert] 25 mg PO TID PRN 04/26/17 11/09/18 History Aspirin [Adult Low Dose Aspirin EC] 81 mg PO HS 06/07/17 11/09/18 History Acetaminophen Tab [Tylenol] 1,000 mg PO Q8H 04/23/18 11/09/18 History Furosemide [Lasix] 80 mg PO BID 04/23/18 11/09/18 History Losartan [Cozaar] 25 mg PO DIRECTED 04/23/18 11/09/18 History Metoprolol Tartrate [Lopressor] 12.5 mg PO BID 11/09/18 11/09/18 History Allergies Allergy/AdvReac Type Severity Reaction Status Date / Time gabapentin Allergy Rash/Hives Verified 11/09/18 10:06 lisinopril AdvReac Cough Verified 11/09/18 10:06 Surgical - Exam Vital Signs Temp Pulse Resp BP Pulse Ox 98.6 F 77 18 130/78 96 11/08/18 18:49 11/08/18 18:49 11/08/18 18:49 11/08/18 18:49 11/08/18 18:49 Physical exam: General: Well-developed, well-nourished HEENT: Normocephalic, sclerae nonicteric Abdomen: Mild tenderness, nondistended, catheter right side of abdomen with 2 small pinholes across from one another. This suggests the passage of a pin or something sharp passing through the tubing. Extremities: No edema Neuro: Alert and oriented Results - Labs 11/08/18 20:20 11/08/18 20:20 Abnormal Lab Results - Last 24 Hours (Table) 11/08/18 11/08/18 11/09/18 Range/Units 20:20 20:20 02:52 RBC 3.15 L (3.80-5.40) m/uL Hgb 9.7 L (11.4-16.0) gm/dL Hct 31.4 L (34.0-46.0) % MCHC 30.9 L (31.0-37.0) g/dL RDW 15.9 H (11.5-15.5) % Neutrophils # 9.0 H (1.3-7.7) k/uL Lymphocytes # 0.5 L (1.0-4.8) k/uL Carbon Dioxide 32 H (22-30) mmol/L BUN 59 H (7-17) mg/dL Creatinine 8.14 H* (0.52-1.04) mg/dL POC Glucose (mg/dL) 59 L (75-99) mg/dL Calcium 6.8 L (8.4-10.2) mg/dL Total Protein 6.0 L (6.3-8.2) g/dL Albumin 3.1 L (3.5-5.0) g/dL Urine Appearance (Clear) Urine Protein (Negative) Urine Blood (Negative) Ur Leukocyte Esterase (Negative) Urine WBC (0-5) /hpf Urine Bacteria (None) /hpf 11/09/18 11/09/18 11/09/18 Range/Units 03:27 06:53 09:23 RBC (3.80-5.40) m/uL Hgb (11.4-16.0) gm/dL Hct (34.0-46.0) % MCHC (31.0-37.0) g/dL RDW (11.5-15.5) % Neutrophils # (1.3-7.7) k/uL Lymphocytes # (1.0-4.8) k/uL Carbon Dioxide (22-30) mmol/L BUN (7-17) mg/dL Creatinine (0.52-1.04) mg/dL POC Glucose (mg/dL) 61 L 122 H 169 H (75-99) mg/dL Calcium (8.4-10.2) mg/dL Total Protein (6.3-8.2) g/dL Albumin (3.5-5.0) g/dL Urine Appearance (Clear) Urine Protein (Negative) Urine Blood (Negative) Ur Leukocyte Esterase (Negative) Urine WBC (0-5) /hpf Urine Bacteria (None) /hpf 11/09/18 11/09/18 11/09/18 Range/Units 10:45 12:06 17:11 RBC (3.80-5.40) m/uL Hgb (11.4-16.0) gm/dL Hct (34.0-46.0) % MCHC (31.0-37.0) g/dL RDW (11.5-15.5) % Neutrophils # (1.3-7.7) k/uL Lymphocytes # (1.0-4.8) k/uL Carbon Dioxide (22-30) mmol/L BUN (7-17) mg/dL Creatinine (0.52-1.04) mg/dL POC Glucose (mg/dL) 212 H 276 H (75-99) mg/dL Calcium (8.4-10.2) mg/dL Total Protein (6.3-8.2) g/dL Albumin (3.5-5.0) g/dL Urine Appearance Cloudy H (Clear) Urine Protein 1+ H (Negative) Urine Blood Trace H (Negative) Ur Leukocyte Esterase Moderate H (Negative) Urine WBC 15 H (0-5) /hpf Urine Bacteria Rare H (None) /hpf Microbiology - Last 24 Hours (Table) 11/09/18 10:45 Urine Culture - Preliminary Urine,Voided 11/09/18 10:01 Body Fluid Culture - Preliminary Peritoneal Fluid Diabetes panel 11/08/18 Range/Units 20:20 Sodium 143 (137-145) mmol/L Potassium 4.0 (3.5-5.1) mmol/L Chloride 103 (98-107) mmol/L Carbon Dioxide 32 H (22-30) mmol/L BUN 59 H (7-17) mg/dL Creatinine 8.14 H* (0.52-1.04) mg/dL Glucose 89 (74-99) mg/dL Calcium 6.8 L (8.4-10.2) mg/dL AST 21 (14-36) U/L ALT 21 (9-52) U/L Alkaline Phosphatase 81 (38-126) U/L Total Protein 6.0 L (6.3-8.2) g/dL Albumin 3.1 L (3.5-5.0) g/dL Calcium panel 11/08/18 Range/Units 20:20 Calcium 6.8 L (8.4-10.2) mg/dL Albumin 3.1 L (3.5-5.0) g/dL Pituitary panel 11/08/18 Range/Units 20:20 Sodium 143 (137-145) mmol/L Potassium 4.0 (3.5-5.1) mmol/L Chloride 103 (98-107) mmol/L Carbon Dioxide 32 H (22-30) mmol/L BUN 59 H (7-17) mg/dL Creatinine 8.14 H* (0.52-1.04) mg/dL Glucose 89 (74-99) mg/dL Calcium 6.8 L (8.4-10.2) mg/dL Adrenal panel 11/08/18 Range/Units 20:20 Sodium 143 (137-145) mmol/L Potassium 4.0 (3.5-5.1) mmol/L Chloride 103 (98-107) mmol/L Carbon Dioxide 32 H (22-30) mmol/L BUN 59 H (7-17) mg/dL Creatinine 8.14 H* (0.52-1.04) mg/dL Glucose 89 (74-99) mg/dL Calcium 6.8 L (8.4-10.2) mg/dL Total Bilirubin 0.4 (0.2-1.3) mg/dL AST 21 (14-36) U/L ALT 21 (9-52) U/L Alkaline Phosphatase 81 (38-126) U/L Total Protein 6.0 L (6.3-8.2) g/dL Albumin 3.1 L (3.5-5.0) g/dL Assessment and Plan (1) Peritoneal dialysis catheter dysfunction Narrative/Plan: Will replace the extension of the dialysis catheter at the bedside under aseptic conditions. May utilize catheter following that. Continue antibiotics for catheter related peritonitis. Will remain on standby for possible catheter removal if necessary. Current Visit: Yes Status: Acute Code(s): T85.611A - BREAKDOWN OF INTRAPERITONEAL DIALYSIS CATHETER, INIT SNOMED Code(s): 702014597
[2018-11-09] MEDS: DIALYSIS (PERIT 2.5%) 2,000 ML 50 G/2,000 ML BAG INTRAPERIT SCH (18:18)
[2018-11-09 20:38] LABS: Glucose,Whole Blood 271 mg/dL (75-99)
[2018-11-09] MEDS: METOPROLOL TARTRATE 25 MG TAB PO SCH (21:28)
[2018-11-09] MEDS: LOSARTAN 25 MG TAB PO SCH (21:28)
[2018-11-09] MEDS: ACETAMINOPHEN TAB 325 MG TAB PO PRN (21:28)
[2018-11-09] MEDS: INSULIN ASPART (NovoLOG) 100 UNIT/ML VIAL SQ SCH (21:28)
[2018-11-09] MEDS: ASPIRIN 81 MG PO SCH (21:28)
[2018-11-09] MEDS: PRAVASTATIN SODIUM 20 MG TAB PO SCH (21:28)
[2018-11-09 23:12] LABS: Iron Saturation 11.11 (12.00-45.00)
[2018-11-10] MEDS: DIALYSIS (PERIT 2.5%) 2,000 ML 50 G/2,000 ML BAG INTRAPERIT SCH ×3 (05:44→12:55)
[2018-11-10] MEDS: LEVOTHYROXINE 75 MCG TAB PO SCH (05:45)
[2018-11-10 07:02] LABS: Glucose,Whole Blood 235 mg/dL (75-99)
[2018-11-10] MEDS: CALCIUM ACETATE 667 MG CAP PO SCH ×3 (08:17→17:21)
[2018-11-10] MEDS: INSULIN ASPART (NovoLOG) 100 UNIT/ML VIAL SQ SCH ×4 (08:17→21:27)
[2018-11-10] MEDS: FUROSEMIDE 80 MG TAB PO SCH ×2 (08:18→17:21)
[2018-11-10] MEDS: METOPROLOL TARTRATE 25 MG TAB PO SCH ×2 (08:18→20:02)
[2018-11-10] MEDS: PANTOPRAZOLE 40 MG/10 ML VIAL IV SCH (08:18)
[2018-11-10] MEDS: LOSARTAN 25 MG TAB PO SCH ×2 (08:18→20:02)
[2018-11-10] MEDS: FOLIC ACID-VIT B COMPLEX-VIT C 1 CAP PO SCH (08:18)
[2018-11-10] MEDS: CLOPIDOGREL 75 MG TAB PO SCH (08:18)
[2018-11-10 09:05] LABS: Anisocytosis Slight; Basophils % (A) 0 %; Eosinophils # (A) 0.3 k/uL (0-0.7); Eosinophils % (A) 4 %; HCT 24.6 % (34.0-46.0); Hypochromasia Moderate; Lymphocytes # (A) 0.5 k/uL (1.0-4.8); Lymphocytes % (A) 7 %; MCH 30.4 pg (25.0-35.0); MCHC 29.8 g/dL (31.0-37.0); MCV 102.1 fL (80.0-100.0); Macrocytosis Slight; Mean Platelet Volume 9.3; Monocytes # (A) 0.3 k/uL (0-1.0); Monocytes % (A) 4 %; Neutrophils # (A) 5.9 k/uL (1.3-7.7); Neutrophils % (A) 82 %; Platelet Count 169 k/uL (150-450); RBC 2.41 m/uL (3.80-5.40); WBC 7.1 k/uL (3.8-10.6)
[2018-11-10 09:14] LABS: HGB 7.3 gm/dL (11.4-16.0)
[2018-11-10 09:15] LABS: Albumin 2.4 g/dL (3.5-5.0); Potassium 3.8 mmol/L (3.5-5.1); Total Bilirubin 0.3 mg/dL (0.2-1.3); Total Protein 4.9 g/dL (6.3-8.2)
--- NOTE | 2018-11-10 09:44 | P.PN ---
Subjective Progress Note Date: 11/10/18 Principal diagnosis: Abdominal pain Much more awake today, minimal abdominal pain, no chest pain no shortness of breath, nausea no vomiting no fever. Objective - Vital Signs Vital signs: Vital Signs Temp 97.8 F 11/10/18 06:00 Pulse 68 11/10/18 06:00 Resp 20 11/10/18 08:13 BP 102/54 11/10/18 06:00 Pulse Ox 99 11/10/18 08:13 Intake & Output 11/09/18 11/10/18 11/10/18 18:59 06:59 18:59 Intake Total 500 400 Balance 500 400 Intake: Oral 500 400 Other: Voiding Method CAPD Diaper Incontinent CAPD # Voids 1 - Exam Constitutional: No acute distress Eyes: Anicteric sclerae, PERRLA ENMT: NC/AT Neck:Supple, FROM, no masses, or JVD, No carotid bruits; No thyromegaly Lungs: Clear to auscultation, Clear to percussion Cardiovascular: Heart regular in rate and rhythm, No murmurs, gallops, or rubs no peripheral edema Abdominal: Soft , nom distended, no guarding, no rebound or rigidity, mild tenderness. + PD catheter in place Skin: Normal temperature, No induration Extremities:No digital cyanosis No clubbing, 1+ edema left lower extremity. Right BKA Psychiatric: normal Neuro: Cranial nerves II-XII grossly intact. - Labs CBC & Chem 7: 11/10/18 08:26 11/10/18 08:26 Labs: Abnormal Lab Results - Last 24 Hours (Table) 11/08/18 11/09/18 11/09/18 Range/Units 20:20 09:23 10:45 RBC (3.80-5.40) m/uL Hgb (11.4-16.0) gm/dL Hct (34.0-46.0) % MCV (80.0-100.0) fL MCHC (31.0-37.0) g/dL RDW (11.5-15.5) % Lymphocytes # (1.0-4.8) k/uL Sodium (137-145) mmol/L BUN (7-17) mg/dL Creatinine (0.52-1.04) mg/dL Glucose (74-99) mg/dL POC Glucose (mg/dL) 169 H (75-99) mg/dL Calcium (8.4-10.2) mg/dL Iron 20 L (50-170) ug/dL TIBC 180 L (228-460) ug/dL Iron Saturation 11.11 L (12.00-45.00) Total Protein (6.3-8.2) g/dL Albumin (3.5-5.0) g/dL Urine Appearance Cloudy H (Clear) Urine Protein 1+ H (Negative) Urine Blood Trace H (Negative) Ur Leukocyte Esterase Moderate H (Negative) Urine WBC 15 H (0-5) /hpf Urine Bacteria Rare H (None) /hpf 11/09/18 11/09/18 11/09/18 Range/Units 12:06 17:11 20:36 RBC (3.80-5.40) m/uL Hgb (11.4-16.0) gm/dL Hct (34.0-46.0) % MCV (80.0-100.0) fL MCHC (31.0-37.0) g/dL RDW (11.5-15.5) % Lymphocytes # (1.0-4.8) k/uL Sodium (137-145) mmol/L BUN (7-17) mg/dL Creatinine (0.52-1.04) mg/dL Glucose (74-99) mg/dL POC Glucose (mg/dL) 212 H 276 H 271 H (75-99) mg/dL Calcium (8.4-10.2) mg/dL Iron (50-170) ug/dL TIBC (228-460) ug/dL Iron Saturation (12.00-45.00) Total Protein (6.3-8.2) g/dL Albumin (3.5-5.0) g/dL Urine Appearance (Clear) Urine Protein (Negative) Urine Blood (Negative) Ur Leukocyte Esterase (Negative) Urine WBC (0-5) /hpf Urine Bacteria (None) /hpf 11/10/18 11/10/18 11/10/18 Range/Units 07:00 08:26 08:26 RBC 2.41 L (3.80-5.40) m/uL Hgb 7.3 L D (11.4-16.0) gm/dL Hct 24.6 L (34.0-46.0) % MCV 102.1 H (80.0-100.0) fL MCHC 29.8 L (31.0-37.0) g/dL RDW 16.0 H (11.5-15.5) % Lymphocytes # 0.5 L (1.0-4.8) k/uL Sodium 136 L (137-145) mmol/L BUN 59 H (7-17) mg/dL Creatinine 8.80 H* (0.52-1.04) mg/dL Glucose 239 H (74-99) mg/dL POC Glucose (mg/dL) 235 H (75-99) mg/dL Calcium 6.0 L* (8.4-10.2) mg/dL Iron (50-170) ug/dL TIBC (228-460) ug/dL Iron Saturation (12.00-45.00) Total Protein 4.9 L (6.3-8.2) g/dL Albumin 2.4 L (3.5-5.0) g/dL Urine Appearance (Clear) Urine Protein (Negative) Urine Blood (Negative) Ur Leukocyte Esterase (Negative) Urine WBC (0-5) /hpf Urine Bacteria (None) /hpf Microbiology - Last 24 Hours (Table) 11/09/18 10:01 Gram Stain - Preliminary Peritoneal Fluid Body Fluid Culture - Preliminary 11/08/18 20:20 Blood Culture - Preliminary Blood No Growth after 24 hours 11/09/18 10:45 Urine Culture - Preliminary Urine,Voided Assessment and Plan Assessment: 1. Abdominal pain nausea and vomiting, unspecified etiology: Continue con servative treatment. 2. Pulmonary infiltrates unspecified significance: on Rocephin, we will add Zi thromax and 3. End-stage renal disease on PD secondary to diabetes: Continue PD, nephrology consultation apprecaited , the extension of the dialysis catheter was replaced by surgery.consult ID for IV abxs , discontinue Rocephin and Zithromax continue vancomycin and gent IP. 4. Hypothyroidism: Continue Synthroid 5. Secondary hyperparathyroidism: Continue binders 6. 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 Essential hypertension: continue outpatient medications 8. DVT prophylaxis: SCDs
[2018-11-10] MEDS: GENTAMICIN PER PHARMACY MISCELLANE SCH (10:06)
[2018-11-10] MEDS: AZITHROMYCIN 500 MG in SODIUM CHLORIDE 0.9% 250 ML IVPB SCH (10:07)
--- NOTE | 2018-11-10 10:42 | P.PN ---
Subjective Progress Note Date: 11/10/18 Principal diagnosis: This is a 63-year-old female with endstage renal failure who came in with abdominal pain and was found to have peritonitis. Her cell count was 35,600 with 92% polys. A culture and Gram stain is pending. She was started on IV vancomycin and IV gentamicin. IV route was started because of the leak as we could not use the PD catheter until the tubing was changed She also had a hole in the extension tube. Extension given has been changed by Dr. Flores. She is back on dialysis. Her pain is improved she is eating she denies any chest pain shortness of breath nausea vomiting. Objective - Vital Signs Vital signs: Vital Signs Temp 97.8 F 11/10/18 06:00 Pulse 68 11/10/18 06:00 Resp 20 11/10/18 08:13 BP 102/54 11/10/18 06:00 Pulse Ox 99 11/10/18 08:13 Intake & Output 11/09/18 11/10/18 11/10/18 18:59 06:59 18:59 Intake Total 500 400 Balance 500 400 Intake: Oral 500 400 Other: Voiding Method CAPD Diaper Diaper Incontinent Incontinent CAPD CAPD # Voids 1 On examination is awake alert oriented but looks much better than yesterday HEENT exam no JVP neck is supple no facial asymmetry Lungs clear to auscultation good air entry bilaterally. Heart sounds are unremarkable no murmur rub gallop Abdomen is soft minimal tenderness and minimal rebound Rectum exam was minimal edema Neurologically awake alert oriented. - Labs CBC & Chem 7: 11/10/18 08:26 11/10/18 08:26 Labs: Abnormal Lab Results - Last 24 Hours (Table) 11/08/18 11/09/18 11/09/18 Range/Units 20:20 10:45 12:06 RBC (3.80-5.40) m/uL Hgb (11.4-16.0) gm/dL Hct (34.0-46.0) % MCV (80.0-100.0) fL MCHC (31.0-37.0) g/dL RDW (11.5-15.5) % Lymphocytes # (1.0-4.8) k/uL Sodium (137-145) mmol/L BUN (7-17) mg/dL Creatinine (0.52-1.04) mg/dL Glucose (74-99) mg/dL POC Glucose (mg/dL) 212 H (75-99) mg/dL Calcium (8.4-10.2) mg/dL Iron 20 L (50-170) ug/dL TIBC 180 L (228-460) ug/dL Iron Saturation 11.11 L (12.00-45.00) Total Protein (6.3-8.2) g/dL Albumin (3.5-5.0) g/dL Urine Appearance Cloudy H (Clear) Urine Protein 1+ H (Negative) Urine Blood Trace H (Negative) Ur Leukocyte Esterase Moderate H (Negative) Urine WBC 15 H (0-5) /hpf Urine Bacteria Rare H (None) /hpf 11/09/18 11/09/18 11/10/18 Range/Units 17:11 20:36 07:00 RBC (3.80-5.40) m/uL Hgb (11.4-16.0) gm/dL Hct (34.0-46.0) % MCV (80.0-100.0) fL MCHC (31.0-37.0) g/dL RDW (11.5-15.5) % Lymphocytes # (1.0-4.8) k/uL Sodium (137-145) mmol/L BUN (7-17) mg/dL Creatinine (0.52-1.04) mg/dL Glucose (74-99) mg/dL POC Glucose (mg/dL) 276 H 271 H 235 H (75-99) mg/dL Calcium (8.4-10.2) mg/dL Iron (50-170) ug/dL TIBC (228-460) ug/dL Iron Saturation (12.00-45.00) Total Protein (6.3-8.2) g/dL Albumin (3.5-5.0) g/dL Urine Appearance (Clear) Urine Protein (Negative) Urine Blood (Negative) Ur Leukocyte Esterase (Negative) Urine WBC (0-5) /hpf Urine Bacteria (None) /hpf 11/10/18 11/10/18 Range/Units 08:26 08:26 RBC 2.41 L (3.80-5.40) m/uL Hgb 7.3 L D (11.4-16.0) gm/dL Hct 24.6 L (34.0-46.0) % MCV 102.1 H (80.0-100.0) fL MCHC 29.8 L (31.0-37.0) g/dL RDW 16.0 H (11.5-15.5) % Lymphocytes # 0.5 L (1.0-4.8) k/uL Sodium 136 L (137-145) mmol/L BUN 59 H (7-17) mg/dL Creatinine 8.80 H* (0.52-1.04) mg/dL Glucose 239 H (74-99) mg/dL POC Glucose (mg/dL) (75-99) mg/dL Calcium 6.0 L* (8.4-10.2) mg/dL Iron (50-170) ug/dL TIBC (228-460) ug/dL Iron Saturation (12.00-45.00) Total Protein 4.9 L (6.3-8.2) g/dL Albumin 2.4 L (3.5-5.0) g/dL Urine Appearance (Clear) Urine Protein (Negative) Urine Blood (Negative) Ur Leukocyte Esterase (Negative) Urine WBC (0-5) /hpf Urine Bacteria (None) /hpf Microbiology - Last 24 Hours (Table) 11/09/18 10:01 Gram Stain - Preliminary Peritoneal Fluid Body Fluid Culture - Preliminary 11/08/18 20:20 Blood Culture - Preliminary Blood No Growth after 24 hours 11/09/18 10:45 Urine Culture - Preliminary Urine,Voided Assessment and Plan Assessment: Impression 1. ESRD patient on peritoneal dialysis at home with a cycler admitted with abdominal pain, suggestive of peritonitis. Cell count is 35,600 with 92% polys Gram stain and cultures are still pending. Patient is on IV vancomycin and IV gentamicin pending results of the culture. Currently on 2 L 2.5% 4 exchanges, with minimal ultrafiltration 2. Crackles right lung base, the chest x-ray showing possible pulmonary congest ion. Improved 3. Diabetic nephropathy, diabetic retinopathy, peripheral vascular disease with remote right below knee amputation. 4. Anemia of ESRD, hemoglobin is 9.7 5. Peripheral vascular disease with right below-knee amputation in 2016 Recommendation 1. Continue antibiotics IV vancomycin and IV gentamicin. 2. Redo PD cell count and culture. 3. Will use 4.25% with 2.5% alternating 2 L 4 exchanges a day 5. Maintain Epogen 4000 units 3 times a week, subcu 7. Maintain binders same as outpatient. 8. Pending iron saturation
[2018-11-10] MEDS ORDERED: VANCOMYCIN 1,750 MG in SODIUM CHLORIDE 0.9% 500 ML 500 ML IVPB ONE (12:00)
--- NOTE | 2018-11-10 12:37 | P.PN ---
Subjective Progress Note Date: 11/10/18 Principal diagnosis: Malfunctioning dialysis catheter Patient doing well today. She was able to have her dialysis without difficulty. T-max 100.4. Cultures pending. Objective - Vital Signs Vital signs: Vital Signs Temp 97.8 F 11/10/18 06:00 Pulse 68 11/10/18 06:00 Resp 20 11/10/18 08:13 BP 102/54 11/10/18 06:00 Pulse Ox 99 11/10/18 08:13 Intake & Output 11/09/18 11/10/18 11/10/18 18:59 06:59 18:59 Intake Total 500 400 Balance 500 400 Intake: Oral 500 400 Other: Voiding Method CAPD Diaper Diaper Incontinent Incontinent CAPD CAPD # Voids 1 - Exam Abdomen: Soft, nondistended, mild tenderness, catheter intact - Labs CBC & Chem 7: 11/10/18 08:26 11/10/18 08:26 Labs: Abnormal Lab Results - Last 24 Hours (Table) 11/08/18 11/09/18 11/09/18 Range/Units 20:20 17:11 20:36 RBC (3.80-5.40) m/uL Hgb (11.4-16.0) gm/dL Hct (34.0-46.0) % MCV (80.0-100.0) fL MCHC (31.0-37.0) g/dL RDW (11.5-15.5) % Lymphocytes # (1.0-4.8) k/uL Sodium (137-145) mmol/L BUN (7-17) mg/dL Creatinine (0.52-1.04) mg/dL Glucose (74-99) mg/dL POC Glucose (mg/dL) 276 H 271 H (75-99) mg/dL Calcium (8.4-10.2) mg/dL Iron 20 L (50-170) ug/dL TIBC 180 L (228-460) ug/dL Iron Saturation 11.11 L (12.00-45.00) Total Protein (6.3-8.2) g/dL Albumin (3.5-5.0) g/dL 11/10/18 11/10/18 11/10/18 Range/Units 07:00 08:26 08:26 RBC 2.41 L (3.80-5.40) m/uL Hgb 7.3 L D (11.4-16.0) gm/dL Hct 24.6 L (34.0-46.0) % MCV 102.1 H (80.0-100.0) fL MCHC 29.8 L (31.0-37.0) g/dL RDW 16.0 H (11.5-15.5) % Lymphocytes # 0.5 L (1.0-4.8) k/uL Sodium 136 L (137-145) mmol/L BUN 59 H (7-17) mg/dL Creatinine 8.80 H* (0.52-1.04) mg/dL Glucose 239 H (74-99) mg/dL POC Glucose (mg/dL) 235 H (75-99) mg/dL Calcium 6.0 L* (8.4-10.2) mg/dL Iron (50-170) ug/dL TIBC (228-460) ug/dL Iron Saturation (12.00-45.00) Total Protein 4.9 L (6.3-8.2) g/dL Albumin 2.4 L (3.5-5.0) g/dL Microbiology - Last 24 Hours (Table) 11/09/18 10:01 Gram Stain - Preliminary Peritoneal Fluid Body Fluid Culture - Preliminary 11/08/18 20:20 Blood Culture - Preliminary Blood No Growth after 24 hours 11/09/18 10:45 Urine Culture - Preliminary Urine,Voided Assessment and Plan (1) Peritoneal dialysis catheter dysfunction Narrative/Plan: Patient doing well at this time. Continue dialysis. Monitor cultures. Current Visit: Yes Status: Acute Code(s): T85.611A - BREAKDOWN OF INTRAPERITONEAL DIALYSIS CATHETER, INIT SNOMED Code(s): 845176615
[2018-11-10 12:54] LABS: Glucose,Whole Blood 200 mg/dL (75-99)
[2018-11-10] MEDS: HYDROcodone/APAP 5-325MG 1 EACH TAB PO PRN ×2 (13:22→20:03)
[2018-11-10 17:29] LABS: Glucose,Whole Blood 229 mg/dL (75-99)
[2018-11-10] MEDS: DIALYSIS (PERIT 4.25%) 2000 ML 85 G/2,000 ML BAG INTRAPERIT SCH (18:08)
[2018-11-10] MEDS: ASPIRIN 81 MG PO SCH (20:03)
[2018-11-10] MEDS: PRAVASTATIN SODIUM 20 MG TAB PO SCH (20:03)
[2018-11-10 20:14] LABS: Glucose,Whole Blood 318 mg/dL (75-99)
--- NOTE | 2018-11-10 23:36 | P.CONS ---
History of Present Illness - Reason for Consult Consult date: 11/10/18 - Chief Complaint abdominal pain - History of Present Illness 63-year-old woman who has a long-standing history of diabetes and hypertension who is developed end-stage renal disease and is on CAPD at home. The cycler. She relates that she does to 5 L bags on 3 L bag at night. Similar recently 3 L was added because she was not having affective dialysis. Since that time she's had some difficulties with some relative hypotension dizziness and weakness. She was recently seen at dialysis center and they're continue to monitor her due to the elevated creatinine. Apparently on she noticed some drainage on the floor after her dialysis. Was not exactly sure why there was drainage. The next day she was feeling poorly and was seen in the outpatient clinic. Yesterday patient had the sudden onset of high-grade fever chills severe abdominal pain with nausea and feeling very poorly overall and constantly presented to the emergency center. There there was evidence of the defect of the peritoneal dialysis line. She was seen by the surgeon in the line was changed. She's been treated with antibiotic therapy and antibiotics weren't added to her CAPD fluid per nephrology. With concerns to her CAPD related peritonitis the consult was requested. The patient alleges to feel better today but certainly has not completely resolved her symptoms. Review of Systems HEENT:Denies headache or acute visual change. Denies sinus or mouth discomforts. Denies neck stiffness or pain. Denies significant oral cavity pain. Denies difficulty on swallowing. Lungs: Denies significant shortness of breath, cough, sputum production, or hemoptysis. Cardiovascular: Denies significant shortness of breath, chest pain, chest wall pain, orthopnea, dyspnea on exertion, syncope Gastrointestinal: As per the HPI significant abdominal pain that is starting to improve. She is denying stomach and nausea emesis constipation or diarrhea Musculoskeletal: denies significant myalgias or arthralgias. No new joint swelling. Denies new back pain. Skin: Denies new rash or lesions. No new ulcers or wounds are related.. Neuro: Denies headache or visual change. Denies any new onset weakness or difficulty with ambulation. She's been feeling a bit dizzy and weak but is not having significant falls Psychiatric:Denies anxiety or depression. Endocrine: He has ongoing stability and fatigue and is having difficulty reaching dry weight. Past Medical History Past Medical History: Diabetes Mellitus, Dialysis, GERD/Reflux, Hyperlipidemia, Hypertension, Memory Impairment, Renal Disease, Thyroid Disorder Additional Past Medical History / Comment(s): peritoneal dialysis daily over night. hx stil syndrome left hand-please use rt arm/hand for iv, blood draws. diabetic neuropathy and diabetic retinopathy, Rt BKA uses prosthesis History of Any Multi-Drug Resistant Organisms: MRSA Year Discovered:: 2016 MDRO Source:: rt foot Past Surgical History: Back Surgery, Hysterectomy Additional Past Surgical History / Comment(s): RBKA 01/23/16 R/T DM. neck cervical 4,5,6 fused. graft tie off 04/05/2017, eye laser surgery for diabetic retinopathy Past Anesthesia/Blood Transfusion Reactions: No Reported Reaction Past Psychological History: Anxiety, Depression Additional Psychological History / Comment(s): Single. Retired. No current tobacco or alcohol use. No experience. International travel. No animal exposures Smoking Status: Former smoker Past Alcohol Use History: Occasional Additional Past Alcohol Use History / Comment(s): smoked 25 years 1pack/wk quit 2002. Past Drug Use History: None Reported - Past Family History Mother Family Medical History: Diabetes Mellitus, Hypertension Additional Family Medical History / Comment(s): colon ca Father Family Medical History: Myocardial Infarction ([place]) Medications and Allergies Home Medications and Allergies Comment(s): Current Medications Acetaminophen (Tylenol Tab) 650 mg PO Q6HR PRN PRN Reason: Mild Pain or Fever > 100.5 Last Admin: 11/09/18 21:28 Dose: 650 mg Documented by: Hydrocodone Bitart/Acetaminophen ([place] 5-325) 1 each PO Q6HR PRN PRN Reason: Pain Last Admin: 11/10/18 20:03 Dose: 1 each Documented by: Aspirin (Aspirin) 81 mg PO HS [facility] Last Admin: 11/10/18 20:03 Dose: 81 mg Documented by: Calcium Acetate (Phoslo) 667 mg PO AC-TID [facility] Last Admin: 11/10/18 17:21 Dose: 667 mg Documented by: Clopidogrel Bisulfate (Plavix) 75 mg PO DAILY [facility] Last Admin: 11/10/18 08:18 Dose: 75 mg Documented by: Darbepoetin Edgardo (Aranesp) 40 mcg SQ Q7D [facility] Last Admin: 11/09/18 12:57 Dose: 40 mcg Documented by: Furosemide (Lasix) 80 mg PO BID@0900,1600 [facility] Last Admin: 11/10/18 17:21 Dose: 80 mg Documented by: Hydromorphone HCl (Dilaudid) 0.5 mg IVP Q3HR PRN PRN Reason: Moderate Pain Last Admin: 11/09/18 05:41 Dose: 0.5 mg Documented by: Peritoneal Dialysis Solution (Delflex With 2.5% Dextrose (2,000 Ml)) 50 g in 2,000 mls @ 0 mls/hr INTRAPERIT Q12H [facility]; Protocol Last Admin: 11/10/18 12:55 Dose: 10 mls/hr Documented by: Peritoneal Dialysis Solution (Delflex With 4.25% Dextrose (2,000 Ml)) 85 g in 2,000 mls @ 0 mls/hr INTRAPERIT Q12H [facility]; Protocol Last Admin: 11/10/18 18:08 Dose: 10 mls/hr Documented by: Ibuprofen (Motrin) 400 mg PO Q6HR PRN PRN Reason: Mild Pain or Fever > 100.5 Insulin Aspart (Novolog) 0 unit SQ ACHS [facility]; Protocol Last Admin: 11/10/18 21:27 Dose: 5 unit Documented by: Levothyroxine Sodium (Synthroid) 75 mcg PO 0630 [facility] Last Admin: 11/10/18 05:45 Dose: 75 mcg Documented by: Losartan Potassium (Cozaar) 25 mg PO BID [facility] Last Admin: 11/10/18 20:02 Dose: 25 mg Documented by: Meclizine HCl (Antivert) 25 mg PO TID PRN PRN Reason: Vertigo Metoprolol Tartrate (Lopressor) 25 mg PO BID [facility] Last Admin: 11/10/18 20:02 Dose: 25 mg Documented by: Miscellaneous Information (Pharmacy To Dose Gentamicin) 1 each MISCELLANE DIRECTED [facility] Last Admin: 11/10/18 10:06 Dose: Not Given Documented by: Miscellaneous Information (Pharmacy To Dose Iv Vancomycin) 1 each MISCELLANE DIRECTED PRN PRN Reason: Per Protocol Morphine Sulfate (Morphine Sulfate (Inj)) 4 mg IV Q4HR PRN PRN Reason: Severe Pain Last Admin: 11/09/18 19:01 Dose: 4 mg Documented by: Multivit/Ca Carb/B Cmplx/FA/Prenat (Nephrocaps) 1 each PO DAILY [facility] Last Admin: 11/10/18 08:18 Dose: 1 each Documented by: Naloxone HCl (Narcan) 0.2 mg IV Q2M PRN PRN Reason: Opioid Reversal Ondansetron HCl (Zofran) 4 mg IVP Q8HR PRN PRN Reason: Nausea And Vomiting Pantoprazole Sodium (Protonix) 40 mg IV DAILY [facility] Last Admin: 11/10/18 08:18 Dose: 40 mg Documented by: Pravastatin Sodium (Pravachol) 20 mg PO HS [facility] Last Admin: 11/10/18 20:03 Dose: 20 mg Documented by: Home Medications Medication Instructions Recorded Confirmed Type Levothyroxine Sodium [Synthroid] 75 mcg PO DAILY 10/09/16 11/09/18 History Pantoprazole [Protonix] 40 mg PO DAILY 10/09/16 11/09/18 History Pravastatin Sodium [Pravachol] 20 mg PO HS 10/09/16 11/09/18 History Calcium Acetate [PhosLo] 667 mg PO AC-TID 03/11/17 11/09/18 History Clopidogrel [Plavix] 75 mg PO DAILY 03/11/17 11/09/18 History Rosio-Thomas 1 tab PO DAILY 03/11/17 11/09/18 History Meclizine [Antivert] 25 mg PO TID PRN 04/26/17 11/09/18 History Aspirin [Adult Low Dose Aspirin EC] 81 mg PO HS 06/07/17 11/09/18 History Acetaminophen Tab [Tylenol] 1,000 mg PO Q8H 04/23/18 11/09/18 History Furosemide [Lasix] 80 mg PO BID 04/23/18 11/09/18 History Losartan [Cozaar] 25 mg PO DIRECTED 04/23/18 11/09/18 History Metoprolol Tartrate [Lopressor] 12.5 mg PO BID 11/09/18 11/09/18 History Allergies Allergy/AdvReac Type Severity Reaction Status Date / Time gabapentin Allergy Rash/Hives Verified 11/09/18 10:06 lisinopril AdvReac Cough Verified 11/09/18 10:06 Physical Exam Vitals: Vital Signs Temp Pulse Pulse Resp BP BP Pulse Ox 11/10/18 21:29 97 11/10/18 20:00 98.8 F 66 18 127/71 11/10/18 12:53 98.7 F 64 20 116/68 100 11/10/18 12:52 98.7 F 64 16 116/68 100 11/10/18 08:13 20 99 11/10/18 06:00 97.8 F 68 16 102/54 100 11/10/18 04:30 98.4 F 58 L 20 102/61 100 11/10/18 00:00 99.8 F H 66 14 97/59 100 Intake and Output 11/10/18 11/10/18 11/11/18 14:59 22:59 06:59 Other: Voiding Method Diaper Diaper Incontinent Incontinent CAPD CAPD # Voids 0 # Bowel Movements 0 HEENT: Anicteric conjunctiva are pink and moist nasal mucosa grossly intact without significant lesions, there is no thrush. Neck: The neck is supple without significant lymphadenopathy or thyromegaly. Lungs: Good bilateral air entry without significant crackles or wheezing. There is no significant bronchial sounds. There is no egophony or dullness. Heart: Regular rate and rhythm with an audible S1-S2, no S3 no S4. There is no significant murmur click or rub, PMI was nondisplaced. Abdomen: Positive bowel sounds, the abdomen has evidence of the fluid for the current dwell. There is distinct tenderness to the abdominal wall which apparently is improved from yesterday. There is no purulence from the peritoneal dialysis site. Extremities: The upper extremities have excellent pulses they are symmetric, no significant petechiae or telangiectasia. No splinter hemorrhages were noted. The lower extremities have some chronic edema but no open ulcers the peripheral pulses were 2+ and symmetric. Neuro: Awake alert oriented to person place and time. There are no acute new gross focal sensory motor deficits. Results CBC & Chem 7: 11/10/18 08:26 11/10/18 08:26 Labs: Abnormal Lab Results - Last 24 Hours (Table) 11/10/18 11/10/18 11/10/18 Range/Units 07:00 08:26 08:26 RBC 2.41 L (3.80-5.40) m/uL Hgb 7.3 L D (11.4-16.0) gm/dL Hct 24.6 L (34.0-46.0) % MCV 102.1 H (80.0-100.0) fL MCHC 29.8 L (31.0-37.0) g/dL RDW 16.0 H (11.5-15.5) % Lymphocytes # 0.5 L (1.0-4.8) k/uL Sodium 136 L (137-145) mmol/L BUN 59 H (7-17) mg/dL Creatinine 8.80 H* (0.52-1.04) mg/dL Glucose 239 H (74-99) mg/dL POC Glucose (mg/dL) 235 H (75-99) mg/dL Calcium 6.0 L* (8.4-10.2) mg/dL Total Protein 4.9 L (6.3-8.2) g/dL Albumin 2.4 L (3.5-5.0) g/dL 11/10/18 11/10/18 11/10/18 Range/Units 12:50 17:20 20:11 RBC (3.80-5.40) m/uL Hgb (11.4-16.0) gm/dL Hct (34.0-46.0) % MCV (80.0-100.0) fL MCHC (31.0-37.0) g/dL RDW (11.5-15.5) % Lymphocytes # (1.0-4.8) k/uL Sodium (137-145) mmol/L BUN (7-17) mg/dL Creatinine (0.52-1.04) mg/dL Glucose (74-99) mg/dL POC Glucose (mg/dL) 200 H 229 H 318 H (75-99) mg/dL Calcium (8.4-10.2) mg/dL Total Protein (6.3-8.2) g/dL Albumin (3.5-5.0) g/dL Microbiology - Last 24 Hours (Table) 11/08/18 20:20 Blood Culture - Preliminary Blood No Growth after 48 hours 11/09/18 10:45 Urine Culture - Preliminary Urine,Voided Gram Neg Bacilli 11/09/18 10:01 Gram Stain - Preliminary Peritoneal Fluid Body Fluid Culture - Preliminary Laboratory Results WBC 7.1 k/uL (3.8-10.6) 11/10/18 08:26 RBC 2.41 m/uL (3.80-5.40) L 11/10/18 08:26 Hgb 7.3 gm/dL (11.4-16.0) L D 11/10/18 08:26 Hct 24.6 % (34.0-46.0) L 11/10/18 08:26 MCV 102.1 fL (80.0-100.0) H 11/10/18 08:26 MCH 30.4 pg (25.0-35.0) 11/10/18 08:26 MCHC 29.8 g/dL (31.0-37.0) L 11/10/18 08:26 RDW 16.0 % (11.5-15.5) H 11/10/18 08:26 Plt Count 169 k/uL (150-450) 11/10/18 08:26 Neutrophils % 82 % 11/10/18 08:26 Lymphocytes % 7 % 11/10/18 08:26 Monocytes % 4 % 11/10/18 08:26 Eosinophils % 4 % 11/10/18 08:26 Basophils % 0 % 11/10/18 08:26 Neutrophils # 5.9 k/uL (1.3-7.7) 11/10/18 08:26 Lymphocytes # 0.5 k/uL (1.0-4.8) L 11/10/18 08:26 Monocytes # 0.3 k/uL (0-1.0) 11/10/18 08:26 Eosinophils # 0.3 k/uL (0-0.7) 11/10/18 08:26 Basophils # 0.0 k/uL (0-0.2) 11/10/18 08:26 Hypochromasia Moderate 11/10/18 08:26 Anisocytosis Slight 11/10/18 08:26 Macrocytosis Slight 11/10/18 08:26 Sodium 136 mmol/L (137-145) L 11/10/18 08:26 Potassium 3.8 mmol/L (3.5-5.1) 11/10/18 08:26 Chloride 101 mmol/L (98-107) 11/10/18 08:26 Carbon Dioxide 27 mmol/L (22-30) 11/10/18 08:26 Anion Gap 8 mmol/L 11/10/18 08:26 BUN 59 mg/dL (7-17) H 11/10/18 08:26 Creatinine 8.80 mg/dL (0.52-1.04) H* 11/10/18 08:26 Est GFR (CKD-EPI)AfAm 5 (>60 ml/min/1.73 sqM) 11/10/18 08:26 Est GFR (CKD-EPI)NonAf 4 (>60 ml/min/1.73 sqM) 11/10/18 08:26 Glucose 239 mg/dL (74-99) H 11/10/18 08:26 POC Glucose (mg/dL) 318 mg/dL (75-99) H 11/10/18 20:11 POC Glu Field Operations Technician ID Christine Owen 11/10/18 20:11 Plasma Lactic Acid James 1.8 mmol/L (0.7-2.0) 11/08/18 20:20 Calcium 6.0 mg/dL (8.4-10.2) L* 11/10/18 08:26 Iron 20 ug/dL (50-170) L 11/08/18 20:20 TIBC 180 ug/dL (228-460) L 11/08/18 20:20 Iron Saturation 11.11 (12.00-45.00) L 11/08/18 20:20 Total Bilirubin 0.3 mg/dL (0.2-1.3) 11/10/18 08:26 AST 31 U/L (14-36) 11/10/18 08:26 ALT 19 U/L (9-52) 11/10/18 08:26 Alkaline Phosphatase 53 U/L (38-126) 11/10/18 08:26 Total Protein 4.9 g/dL (6.3-8.2) L 11/10/18 08:26 Albumin 2.4 g/dL (3.5-5.0) L 11/10/18 08:26 Amylase 64 U/L (30-110) 11/08/18 20:20 Lipase 62 U/L (23-300) 11/08/18 20:20 Urine Color Yellow 11/09/18 10:45 Urine Appearance Cloudy (Clear) H 11/09/18 10:45 Urine pH 5.5 (5.0-8.0) 11/09/18 10:45 Ur Specific [place] 1.014 (1.001-1.035) 11/09/18 10:45 Urine Protein 1+ (Negative) H 11/09/18 10:45 Urine Glucose (UA) Negative (Negative) 11/09/18 10:45 Urine Ketones Negative (Negative) 11/09/18 10:45 Urine Blood Trace (Negative) H 11/09/18 10:45 Urine Nitrite Negative (Negative) 11/09/18 10:45 Urine Bilirubin Negative (Negative) 11/09/18 10:45 Urine Urobilinogen 2.0 mg/dL (<2.0) 11/09/18 10:45 Ur Leukocyte Esterase Moderate (Negative) H 11/09/18 10:45 Urine RBC 3 /hpf (0-5) 11/09/18 10:45 Urine WBC 15 /hpf (0-5) H 11/09/18 10:45 Ur Squamous Epith Cells 2 /hpf (0-4) 11/09/18 10:45 Urine Bacteria Rare /hpf (None) H 11/09/18 10:45 Hyaline Casts 1 /lpf (0-2) 11/09/18 10:45 Fluid Source Pleural 11/09/18 10:01 Fluid Color Yellow 11/09/18 10:01 Fluid Appearance Cloudy 11/09/18 10:01 Fluid RBC 0 /uL 11/09/18 10:01 Fluid Nucleated Cells 54575 /uL 11/09/18 10:01 Fluid Polynuclear WBCs 92 % 11/09/18 10:01 Fluid Mononuclear WBCs 8 % 11/09/18 10:01 Microbiology 11/08/18 20:20 Blood Blood Culture - Preliminary No Growth after 48 hours 11/09/18 10:45 Urine,Voided Urine Culture - Preliminary Gram Neg Bacilli 11/09/18 10:01 Peritoneal Fluid Gram Stain - Preliminary 11/09/18 10:01 Peritoneal Fluid Body Fluid Culture - Preliminary Assessment and Plan (1) Peritoneal dialysis catheter dysfunction Current Visit: Yes Status: Acute Code(s): T85.611A - BREAKDOWN OF INTRAPERITONEAL DIALYSIS CATHETER, INIT SNOMED Code(s): 136363561 (2) End stage renal disease on dialysis Current Visit: Yes Status: Chronic Priority: High Code(s): N18.6 - END STAGE RENAL DISEASE; Z99.2 - DEPENDENCE ON RENAL DIALYSIS SNOMED Code(s): 050299628 (3) Peritonitis associated with peritoneal dialysis Narrative/Plan: 63-year-old woman who has a history of multiple medical troubles including diabetes and hypertension who has end-stage renal disease on peritoneal dialysis. Apparently developed a failure of the dialysis catheter itself and there was a leak. She then developed some peritonitis. He does not feeling better with treatment with vancomycin and gentamicin patient received intravenously and there's been a request for vancomycin be placed in her peritoneal dialysis itself. She did have a high-grade fever there is no improvement. She also had leukocytosis it's improving. Blood cultures negative so far. Urine culture will likely have pathogens as she's had in the past which have included Klebsiella and Proteus. If she improves she will be transitioned to antibiotics per peritoneal dialysis to complete the course of therapy. Currently it's vancomycin and gentamicin. May need to add further antibiotic therapy depending on the culture results especially if her urine culture is positive. Current Visit: Yes Status: Acute Code(s): T85.71XA - INFECT/INFLM REACTION DUE TO PERITON DIALYSIS CATHETER, INIT SNOMED Code(s): 601429890
[2018-11-11] MEDS: DIALYSIS (PERIT 2.5%) 2,000 ML 50 G/2,000 ML BAG INTRAPERIT SCH (00:20)
[2018-11-11] MEDS: ACETAMINOPHEN TAB 325 MG TAB PO PRN (04:40)
[2018-11-11] MEDS: DIALYSIS (PERIT 4.25%) 2000 ML 85 G/2,000 ML BAG INTRAPERIT SCH ×3 (06:02→17:26)
[2018-11-11] MEDS: LEVOTHYROXINE 75 MCG TAB PO SCH (06:42)
[2018-11-11 07:02] LABS: Glucose,Whole Blood 365 mg/dL (75-99)
[2018-11-11] MEDS ORDERED: MEROPENEM 1 GM in SODIUM CHLORIDE 0.9% 100 ML IVPB STA (07:06)
[2018-11-11] MEDS: PANTOPRAZOLE 40 MG/10 ML VIAL IV SCH (07:42)
[2018-11-11] MEDS: INSULIN ASPART (NovoLOG) 100 UNIT/ML VIAL SQ SCH ×4 (07:44→21:08)
[2018-11-11] MEDS: CALCIUM ACETATE 667 MG CAP PO SCH ×3 (07:46→17:26)
[2018-11-11] MEDS: LOSARTAN 25 MG TAB PO SCH ×2 (07:46→20:14)
[2018-11-11] MEDS: METOPROLOL TARTRATE 25 MG TAB PO SCH ×2 (07:46→20:14)
[2018-11-11] MEDS: FUROSEMIDE 80 MG TAB PO SCH ×2 (07:47→16:16)
[2018-11-11] MEDS: FOLIC ACID-VIT B COMPLEX-VIT C 1 CAP PO SCH (07:47)
[2018-11-11] MEDS: CLOPIDOGREL 75 MG TAB PO SCH (07:47)
[2018-11-11 09:53] LABS: Basophils % (A) 0 %; Eosinophils # (A) 0.1 k/uL (0-0.7); Eosinophils % (A) 1 %; HCT 25.6 % (34.0-46.0); HGB 7.7 gm/dL (11.4-16.0); Hypochromasia Moderate; Lymphocytes # (A) 0.3 k/uL (1.0-4.8); Lymphocytes % (A) 4 %; MCH 30.7 pg (25.0-35.0); MCV 102.4 fL (80.0-100.0); Macrocytosis Slight; Mean Platelet Volume 9.6; Monocytes # (A) 0.2 k/uL (0-1.0); Monocytes % (A) 2 %; Neutrophils % (A) 92 %; Platelet Count 190 k/uL (150-450); RDW 15.7 % (11.5-15.5); WBC 8.8 k/uL (3.8-10.6)
[2018-11-11 10:15] LABS: Albumin 2.6 g/dL (3.5-5.0); Potassium 4.2 mmol/L (3.5-5.1); Total Bilirubin 0.2 mg/dL (0.2-1.3); Total Protein 5.2 g/dL (6.3-8.2)
[2018-11-11 10:20] LABS: Vancomycin,Random 28.8 ug/mL
[2018-11-11 10:45] LABS: Calcium 6.3 mg/dL (8.4-10.2)
[2018-11-11] MEDS: MECLIZINE 25 MG TAB PO PRN ×2 (11:16→20:20)
--- NOTE | 2018-11-11 11:22 | P.PN ---
<Radha Sutton - Last Filed: 11/11/18 11:10> Subjective Progress Note Date: 11/11/18 CHIEF COMPLAINT: peritoneal dialysis catheter malfunction HISTORY OF PRESENT ILLNESS: patient examined this point the bedside. She is status post exchange of extension of peritoneal dialysis catheter. Patient reports mild tenderness to PD site. Denies nausea or vomiting. Tolerating diet. Per nursing, able to perform PD exchanges this morning with difficulty. WBC 8.8. Patient febrile this morning with a tmax of 102.8. PD fluid culture negative for growth at 24 hours. PHYSICAL EXAM: VITAL SIGNS: Reviewed. GENERAL: Well-developed in no acute distress. HEENT: No sclera icterus. Extraocular movements grossly intact. Moist buccal mucosa. Head is atraumatic, normocephalic. ABDOMEN: Obese. Soft. Nondistended. Mild tenderness near PD catheter site. PD catheter site without drainage or signs of infection. Positive bowel sounds. NEUROLOGIC: Alert and oriented. Cranial nerves II through XII grossly intact. ASSESSMENT: 1. Peritoneal dialysis catheter malfunction PLAN: 1. Continue to monitor PD catheter for issues during exchanges 2. Antibiotics per infectious disease. Await final culture report. Nurse practitioner note has been reviewed by physician. Signing provider agrees with the documented findings, assessment, and plan of care. Objective - Vital Signs Vital signs: Vital Signs Temp 99.3 F 11/11/18 07:50 Pulse 84 11/11/18 04:35 Resp 20 11/11/18 04:35 BP 147/69 11/11/18 04:35 Pulse Ox 94 L 11/11/18 04:35 Intake & Output 11/10/18 11/11/18 11/11/18 18:59 06:59 18:59 Intake Total 200 Balance 200 Intake: Oral 200 Other: Voiding Method Diaper Diaper Diaper Incontinent Incontinent Incontinent CAPD # Voids 0 0 # Bowel Movements 0 - Labs CBC & Chem 7: 11/11/18 08:57 11/11/18 08:57 Labs: Abnormal Lab Results - Last 24 Hours (Table) 11/10/18 11/10/18 11/10/18 Range/Units 12:50 17:20 20:11 RBC (3.80-5.40) m/uL Hgb (11.4-16.0) gm/dL Hct (34.0-46.0) % MCV (80.0-100.0) fL MCHC (31.0-37.0) g/dL RDW (11.5-15.5) % Neutrophils # (1.3-7.7) k/uL Lymphocytes # (1.0-4.8) k/uL Sodium (137-145) mmol/L BUN (7-17) mg/dL Creatinine (0.52-1.04) mg/dL Glucose (74-99) mg/dL POC Glucose (mg/dL) 200 H 229 H 318 H (75-99) mg/dL Calcium (8.4-10.2) mg/dL Total Protein (6.3-8.2) g/dL Albumin (3.5-5.0) g/dL 11/11/18 11/11/18 11/11/18 Range/Units 06:57 08:57 08:57 RBC 2.50 L (3.80-5.40) m/uL Hgb 7.7 L (11.4-16.0) gm/dL Hct 25.6 L (34.0-46.0) % MCV 102.4 H (80.0-100.0) fL MCHC 30.0 L (31.0-37.0) g/dL RDW 15.7 H (11.5-15.5) % Neutrophils # 8.0 H (1.3-7.7) k/uL Lymphocytes # 0.3 L (1.0-4.8) k/uL Sodium 135 L (137-145) mmol/L BUN 62 H (7-17) mg/dL Creatinine 9.11 H* (0.52-1.04) mg/dL Glucose 434 H (74-99) mg/dL POC Glucose (mg/dL) 365 H (75-99) mg/dL Calcium 6.3 L* (8.4-10.2) mg/dL Total Protein 5.2 L (6.3-8.2) g/dL Albumin 2.6 L (3.5-5.0) g/dL Microbiology - Last 24 Hours (Table) 11/09/18 10:45 Urine Culture - Final Urine,Voided Escherichia coli 11/08/18 20:20 Blood Culture - Preliminary Blood No Growth after 48 hours 11/09/18 10:01 Gram Stain - Preliminary Peritoneal Fluid Body Fluid Culture - Preliminary <Piero Strickland - Last Filed: 11/11/18 13:32> Subjective As above. Patient feels well. Denies any significant pain. She did have a higher fever. Cultures remain negative. We'll sign off. Please call if needed. Objective - Vital Signs Vital signs: Vital Signs Temp 97.3 F L 11/11/18 12:10 Pulse 65 11/11/18 12:10 Resp 16 11/11/18 12:10 BP 134/63 11/11/18 12:10 Pulse Ox 96 11/11/18 12:10 Intake & Output 11/10/18 11/11/18 11/11/18 18:59 06:59 18:59 Intake Total 200 Balance 200 Intake: Oral 200 Other: Voiding Method Diaper Diaper Diaper Incontinent Incontinent Incontinent CAPD # Voids 0 0 # Bowel Movements 0 - Labs CBC & Chem 7: 11/11/18 08:57 11/11/18 08:57 Labs: Abnormal Lab Results - Last 24 Hours (Table) 11/10/18 11/10/18 11/11/18 Range/Units 17:20 20:11 06:57 RBC (3.80-5.40) m/uL Hgb (11.4-16.0) gm/dL Hct (34.0-46.0) % MCV (80.0-100.0) fL MCHC (31.0-37.0) g/dL RDW (11.5-15.5) % Neutrophils # (1.3-7.7) k/uL Lymphocytes # (1.0-4.8) k/uL Sodium (137-145) mmol/L BUN (7-17) mg/dL Creatinine (0.52-1.04) mg/dL Glucose (74-99) mg/dL POC Glucose (mg/dL) 229 H 318 H 365 H (75-99) mg/dL Calcium (8.4-10.2) mg/dL Total Protein (6.3-8.2) g/dL Albumin (3.5-5.0) g/dL 11/11/18 11/11/18 11/11/18 Range/Units 08:57 08:57 12:11 RBC 2.50 L (3.80-5.40) m/uL Hgb 7.7 L (11.4-16.0) gm/dL Hct 25.6 L (34.0-46.0) % MCV 102.4 H (80.0-100.0) fL MCHC 30.0 L (31.0-37.0) g/dL RDW 15.7 H (11.5-15.5) % Neutrophils # 8.0 H (1.3-7.7) k/uL Lymphocytes # 0.3 L (1.0-4.8) k/uL Sodium 135 L (137-145) mmol/L BUN 62 H (7-17) mg/dL Creatinine 9.11 H* (0.52-1.04) mg/dL Glucose 434 H (74-99) mg/dL POC Glucose (mg/dL) 378 H (75-99) mg/dL Calcium 6.3 L* (8.4-10.2) mg/dL Total Protein 5.2 L (6.3-8.2) g/dL Albumin 2.6 L (3.5-5.0) g/dL Microbiology - Last 24 Hours (Table) 11/09/18 10:45 Urine Culture - Final Urine,Voided Escherichia coli 11/08/18 20:20 Blood Culture - Preliminary Blood No Growth after 48 hours Assessment and Plan (1) Peritoneal dialysis catheter dysfunction Current Visit: Yes Status: Acute Code(s): T85.611A - BREAKDOWN OF INTRAPERITONEAL DIALYSIS CATHETER, INIT SNOMED Code(s): 555183118
[2018-11-11] MEDS: GENTAMICIN PER PHARMACY MISCELLANE SCH (12:07)
[2018-11-11 12:15] LABS: Glucose,Whole Blood 378 mg/dL (75-99)
--- NOTE | 2018-11-11 12:29 | PN ---
PROGRESS NOTE Patient is seen for followup for end-stage renal disease. Currently she is maintained on peritoneal dialysis. Patient is also volume overloaded. She is maintained on 4.25% solutions alternating with 2.5% solutions. The patient has not had significant ultrafiltration with the peritoneal dialysis. She is complaining of pain in her belly. Patient has not had a bowel movement for about 2 days. She has not been eating much. I have discussed with her that if her pain continues or even not able to get more fluid off, patient will need to switch to hemodialysis at least temporarily. A fluid culture from the PD fluid is currently pending. The patient was admitted with peritonitis and has had an exchange of her PD catheter as it was leaking. PHYSICAL EXAMINATION: Blood pressure was 147/69, heart rate 84 per minute, patient is afebrile. Examination of the heart S1, S2. Examination of the lungs, bilateral breath sounds are heard. Abdomen is soft, nontender. Examination of the lower extremities shows edema 2+ bilaterally. 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 LABS SHOW: 1. Hemoglobin 7.7, sodium 135, potassium 4.2, BUN 62, serum creatinine 9.1, calcium 6.3. ASSESSMENT: 1. End-stage renal disease, on him on peritoneal dialysis. Increase PD exchanges to 4.25% solution q.6 hours to help with the UF. The patient is advised that if she does not get significant ultrafiltration or if the abdominal pain continues, she will need to be switched to hemodialysis. At this time, she is agreeable. 2. ESRD peritonitis. Cell count was 35,600. Awaiting repeat cell count from today. Maintained on Vanco and Gentamicin. 3. Diabetic nephropathy and retinopathy with peripheral vascular disease and right below-knee amputation. 4. Anemia of chronic disease. 5. Volume overload. PLAN: Switch to hemodialysis in a.m. If no significant ultrafiltration, repeat PD fluid cell count and increase PD exchanges to 4.25% solution q.6 hours to help with ultrafiltration. MMODL / IJN: [id number] /
[2018-11-11 14:55] LABS: Appearance,BF Clear; Color,BF Colorless; Nucleated Cells, Body Fluid 14 /uL; RBC, Body Fluid 0 /uL
[2018-11-11 17:14] LABS: Glucose,Whole Blood 253 mg/dL (75-99)
[2018-11-11] MEDS: BISACODYL 5 MG TABLET.DR PO PRN (17:26)
--- NOTE | 2018-11-11 19:47 | P.PN ---
Subjective Progress Note Date: 11/11/18 (delayed charting see at 1215) Principal diagnosis: abdominal pain Patient is a 63-year-old -Stateless female with a past medical history of end-stage renal disease on peritoneal meal dialysis, diabetes, GERD, hypertension, and dyslipidemia who presented to the emergency department with complaints of lower abdominal pain, nausea, and vomiting. On arrival to the ER she underwent an extensive evaluation. Her initial vital signs were within normal limits. Several hours later she spiked a fever of 103. Initial laboratory analysis was consistent with her chronic anemia and renal disease. CT abdomen and pelvis showed mild nonspecific multiple retroperitoneal lymph no homa, pneumoperitoneum, and patchy atelectasis in the lung bases. Chest x-ray showed increased lung markings consistent with pulmonary congestion. Shoulder x-ray showed negative right shoulder exam. Initially she was started on Rocephin and Zithromax for possible pulmonary infiltrates. She was continued on her peritoneal dialysis, and she was continued on sliding scale insulin. She was seen by nephrology who is concerned with peritonitis. They ordered a cell count and Gram stain on the peritoneal fluid as well as 1 dose of intraperitoneal vancomycin. Surgery was consulted as there was leakage around her peritoneal dialysis catheter and they replaced the extension under aseptic conditions. This began working appropriately. Peritoneal fluid showed 35,000 white blood cells. Consistent with peritonitis. Infectious disease was consulted. She was continued on IV vancomycin and gentamicin. She was having some dark-colored malodorous urine. Urine culture came back positive for E. coli. Patient seen and examined at bedside. She complains of dizziness and ringing in her ears which she thought was due to missing doses of her antivert. She states that her abdomen is still painful with movement, no BM since admission, no nausea, no vomiting. No chest pain or shortness of breath. Objective - Vital Signs Vital signs: Vital Signs Temp 97.5 F L 11/11/18 14:43 Pulse 60 11/11/18 14:43 Resp 18 11/11/18 14:43 BP 138/62 11/11/18 14:43 Pulse Ox 100 11/11/18 14:43 Intake & Output 11/10/18 11/11/18 11/11/18 18:59 06:59 18:59 Intake Total 200 600 Balance 200 600 Intake: Oral 200 600 Other: Voiding Method Diaper Diaper Diaper Incontinent Incontinent Incontinent CAPD # Voids 0 0 1 # Bowel Movements 0 - Exam General: ill appearing, no distress, appears at stated age Derm: warm, dry Head: atraumatic, normocephalic, symmetric Eyes: EOMI, no lid lag, anicteric sclera Mouth: no lip lesion, mucus membranes moist Cardiovascular: S1S2 reg, no murmur, + radial pulses bilateral Lungs: decreased bs bilateral, no rhonchi, no rales , no accessory muscle use Abdominal: soft, +tender to palpation diffusely, no guarding, no appreciable organomegaly Ext: no gross muscle atrophy, no edema, no contractures, R AKA Neuro: CN II-XI grossly intact, no focal neuro deficits Psych: Alert, oriented, appropriate affect - Labs CBC & Chem 7: 11/11/18 08:57 11/11/18 08:57 Labs: Abnormal Lab Results - Last 24 Hours (Table) 11/10/18 11/11/18 11/11/18 Range/Units 20:11 06:57 08:57 RBC 2.50 L (3.80-5.40) m/uL Hgb 7.7 L (11.4-16.0) gm/dL Hct 25.6 L (34.0-46.0) % MCV 102.4 H (80.0-100.0) fL MCHC 30.0 L (31.0-37.0) g/dL RDW 15.7 H (11.5-15.5) % Neutrophils # 8.0 H (1.3-7.7) k/uL Lymphocytes # 0.3 L (1.0-4.8) k/uL Sodium (137-145) mmol/L BUN (7-17) mg/dL Creatinine (0.52-1.04) mg/dL Glucose (74-99) mg/dL POC Glucose (mg/dL) 318 H 365 H (75-99) mg/dL Calcium (8.4-10.2) mg/dL Total Protein (6.3-8.2) g/dL Albumin (3.5-5.0) g/dL Gentamicin Trough ug/mL 11/11/18 11/11/18 11/11/18 Range/Units 08:57 12:11 14:44 RBC (3.80-5.40) m/uL Hgb (11.4-16.0) gm/dL Hct (34.0-46.0) % MCV (80.0-100.0) fL MCHC (31.0-37.0) g/dL RDW (11.5-15.5) % Neutrophils # (1.3-7.7) k/uL Lymphocytes # (1.0-4.8) k/uL Sodium 135 L (137-145) mmol/L BUN 62 H (7-17) mg/dL Creatinine 9.11 H* (0.52-1.04) mg/dL Glucose 434 H (74-99) mg/dL POC Glucose (mg/dL) 378 H (75-99) mg/dL Calcium 6.3 L* (8.4-10.2) mg/dL Total Protein 5.2 L (6.3-8.2) g/dL Albumin 2.6 L (3.5-5.0) g/dL Gentamicin Trough 3.1 H* ug/mL 11/11/18 Range/Units 17:11 RBC (3.80-5.40) m/uL Hgb (11.4-16.0) gm/dL Hct (34.0-46.0) % MCV (80.0-100.0) fL MCHC (31.0-37.0) g/dL RDW (11.5-15.5) % Neutrophils # (1.3-7.7) k/uL Lymphocytes # (1.0-4.8) k/uL Sodium (137-145) mmol/L BUN (7-17) mg/dL Creatinine (0.52-1.04) mg/dL Glucose (74-99) mg/dL POC Glucose (mg/dL) 253 H (75-99) mg/dL Calcium (8.4-10.2) mg/dL Total Protein (6.3-8.2) g/dL Albumin (3.5-5.0) g/dL Gentamicin Trough ug/mL Microbiology - Last 24 Hours (Table) 11/09/18 10:45 Urine Culture - Final Urine,Voided Escherichia coli 11/08/18 20:20 Blood Culture - Preliminary Blood No Growth after 48 hours Assessment and Plan Assessment: Secondary peritonitis due to peritoneal dialysis - Received 1 gastelum of intraperitoneal Vanco - ID and nephro following - cultures pending - Vanco and gentamycin Gentamycin toxicity - stop gent - pharmacy was dosing repeat gent level in AM ESRD on peritoneal dialysis - likely will have hemodialysis in AM per nephro notes. - nephro recs appreciated Hypothyroidism - synthroid Secondary hyperparathyrodism - phoslo DM 2 with hyperglycemia - Add levemir - SSI - follow BS HTN - controlled - lopressor, cozaar, lasix Pulm infiltrates - likely atelectasis DVT prophylaxis: SCDs Discussed with: Patient, nursing, Dr Gan Anticipated discharge: 3-[address]: home A total of 55 minutes was spent on the care of this complex patient more than 50% of the time was spent in counseling and care coordination.
[2018-11-11] MEDS: HYDROmorphone 0.5 MG/0.5 ML SYRINGE IVP PRN (20:01)
[2018-11-11] MEDS: ASPIRIN 81 MG PO SCH (20:14)
[2018-11-11 20:59] LABS: Glucose,Whole Blood 252 mg/dL (75-99)
[2018-11-11] MEDS ORDERED: INSULIN DETEMIR (LEVEMIR) 100 UNIT/ML SYR SQ SCH (21:00)
[2018-11-11] MEDS: PRAVASTATIN SODIUM 20 MG TAB PO SCH (21:07)
--- NOTE | 2018-11-11 23:33 | P.PN ---
Subjective Progress Note Date: 11/11/18 63-year-old woman who has a long-standing history of diabetes and hypertension who is developed end-stage renal disease and is on CAPD at home. The cycler. She relates that she does to 5 L bags on 3 L bag at night. Similar recently 3 L was added because she was not having affective dialysis. Since that time she's had some difficulties with some relative hypotension dizziness and weakness. She was recently seen at dialysis center and they're continue to monitor her due to the elevated creatinine. Apparently on she noticed some drainage on the floor after her dialysis. Was not exactly sure why there was drainage. The next day she was feeling poorly and was seen in the outpatient clinic. Yesterday patient had the sudden onset of high-grade fever chills severe abdominal pain with nausea and feeling very poorly overall and constantly presented to the emergency center. There there was evidence of the defect of the peritoneal dialysis line. She was seen by the surgeon in the line was changed. She's been treated with antibiotic therapy and antibiotics weren't added to her CAPD fluid per nephrology. With concerns to her CAPD related peritonitis the consult was requested. The patient alleges to feel better today but certainly has not completely resolved her symptoms. 11/11/2018 patient still not feeling well. Has a bit of dizziness today. The CAPD has not been effectively allowing ultrafiltration and her creatinine has continued to increase. She does not feel well overall. Nephrology has evaluated are considering transition to hemodialysis tomorrow if her creatinine does not start to show some improvement. Her abdominal pain has improved. Fluid is clear. Objective - Vital Signs Vital signs: Vital Signs Temp 97.3 F L 11/11/18 20:55 Pulse 67 11/11/18 20:55 Resp 14 11/11/18 20:55 BP 121/58 11/11/18 20:55 Pulse Ox 92 L 11/11/18 20:55 Intake & Output 11/11/18 11/11/18 11/12/18 06:59 18:59 06:59 Intake Total 200 600 Output Total 300 Balance 200 600 -300 Intake: Oral 200 600 Output: Urine 300 Other: Voiding Method Diaper Diaper Incontinent Incontinent # Voids 0 1 # Bowel Movements 1 - Exam HEENT: Anicteric conjunctiva are pink and moist nasal mucosa grossly intact without significant lesions, there is no thrush. Neck: The neck is supple without significant lymphadenopathy or thyromegaly. Lungs: Good bilateral air entry without significant crackles or wheezing. There is no significant bronchial sounds. There is no egophony or dullness. Heart: Regular rate and rhythm with an audible S1-S2, no S3 no S4. There is no significant murmur click or rub, PMI was nondisplaced. Abdomen: Positive bowel sounds, the abdomen has evidence of the fluid for the current dwell. There is distinct tenderness to the abdominal wall which apparently is improved from yesterday. There is no purulence from the peritoneal dialysis site. Extremities: The upper extremities have excellent pulses they are symmetric, no significant petechiae or telangiectasia. No splinter hemorrhages were noted. The lower extremities have some chronic edema but no open ulcers the peripheral pulses were 2+ and symmetric. Neuro: Awake alert oriented to person place and time. - Labs CBC & Chem 7: 11/11/18 08:57 11/11/18 08:57 Labs: Abnormal Lab Results - Last 24 Hours (Table) 11/11/18 11/11/18 11/11/18 Range/Units 06:57 08:57 08:57 RBC 2.50 L (3.80-5.40) m/uL Hgb 7.7 L (11.4-16.0) gm/dL Hct 25.6 L (34.0-46.0) % MCV 102.4 H (80.0-100.0) fL MCHC 30.0 L (31.0-37.0) g/dL RDW 15.7 H (11.5-15.5) % Neutrophils # 8.0 H (1.3-7.7) k/uL Lymphocytes # 0.3 L (1.0-4.8) k/uL Sodium 135 L (137-145) mmol/L BUN 62 H (7-17) mg/dL Creatinine 9.11 H* (0.52-1.04) mg/dL Glucose 434 H (74-99) mg/dL POC Glucose (mg/dL) 365 H (75-99) mg/dL Calcium 6.3 L* (8.4-10.2) mg/dL Total Protein 5.2 L (6.3-8.2) g/dL Albumin 2.6 L (3.5-5.0) g/dL Gentamicin Trough ug/mL 11/11/18 11/11/18 11/11/18 Range/Units 12:11 14:44 17:11 RBC (3.80-5.40) m/uL Hgb (11.4-16.0) gm/dL Hct (34.0-46.0) % MCV (80.0-100.0) fL MCHC (31.0-37.0) g/dL RDW (11.5-15.5) % Neutrophils # (1.3-7.7) k/uL Lymphocytes # (1.0-4.8) k/uL Sodium (137-145) mmol/L BUN (7-17) mg/dL Creatinine (0.52-1.04) mg/dL Glucose (74-99) mg/dL POC Glucose (mg/dL) 378 H 253 H (75-99) mg/dL Calcium (8.4-10.2) mg/dL Total Protein (6.3-8.2) g/dL Albumin (3.5-5.0) g/dL Gentamicin Trough 3.1 H* ug/mL 11/11/18 Range/Units 20:57 RBC (3.80-5.40) m/uL Hgb (11.4-16.0) gm/dL Hct (34.0-46.0) % MCV (80.0-100.0) fL MCHC (31.0-37.0) g/dL RDW (11.5-15.5) % Neutrophils # (1.3-7.7) k/uL Lymphocytes # (1.0-4.8) k/uL Sodium (137-145) mmol/L BUN (7-17) mg/dL Creatinine (0.52-1.04) mg/dL Glucose (74-99) mg/dL POC Glucose (mg/dL) 252 H (75-99) mg/dL Calcium (8.4-10.2) mg/dL Total Protein (6.3-8.2) g/dL Albumin (3.5-5.0) g/dL Gentamicin Trough ug/mL Microbiology - Last 24 Hours (Table) 11/08/18 20:20 Blood Culture - Preliminary Blood No Growth after 72 hours 11/09/18 10:45 Urine Culture - Final Urine,Voided Escherichia coli Laboratory Results WBC 8.8 k/uL (3.8-10.6) 11/11/18 08:57 RBC 2.50 m/uL (3.80-5.40) L 11/11/18 08:57 Hgb 7.7 gm/dL (11.4-16.0) L 11/11/18 08:57 Hct 25.6 % (34.0-46.0) L 11/11/18 08:57 MCV 102.4 fL (80.0-100.0) H 11/11/18 08:57 MCH 30.7 pg (25.0-35.0) 11/11/18 08:57 MCHC 30.0 g/dL (31.0-37.0) L 11/11/18 08:57 RDW 15.7 % (11.5-15.5) H 11/11/18 08:57 Plt Count 190 k/uL (150-450) 11/11/18 08:57 Neutrophils % 92 % 11/11/18 08:57 Lymphocytes % 4 % 11/11/18 08:57 Monocytes % 2 % 11/11/18 08:57 Eosinophils % 1 % 11/11/18 08:57 Basophils % 0 % 11/11/18 08:57 Neutrophils # 8.0 k/uL (1.3-7.7) H 11/11/18 08:57 Lymphocytes # 0.3 k/uL (1.0-4.8) L 11/11/18 08:57 Monocytes # 0.2 k/uL (0-1.0) 11/11/18 08:57 Eosinophils # 0.1 k/uL (0-0.7) 11/11/18 08:57 Basophils # 0.0 k/uL (0-0.2) 11/11/18 08:57 Hypochromasia Moderate 11/11/18 08:57 Anisocytosis Slight 11/10/18 08:26 Macrocytosis Slight 11/11/18 08:57 Sodium 135 mmol/L (137-145) L 11/11/18 08:57 Potassium 4.2 mmol/L (3.5-5.1) 11/11/18 08:57 Chloride 100 mmol/L (98-107) 11/11/18 08:57 Carbon Dioxide 24 mmol/L (22-30) 11/11/18 08:57 Anion Gap 11 mmol/L 11/11/18 08:57 BUN 62 mg/dL (7-17) H 11/11/18 08:57 Creatinine 9.11 mg/dL (0.52-1.04) H* 11/11/18 08:57 Est GFR (CKD-EPI)AfAm 5 (>60 ml/min/1.73 sqM) 11/11/18 08:57 Est GFR (CKD-EPI)NonAf 4 (>60 ml/min/1.73 sqM) 11/11/18 08:57 Glucose 434 mg/dL (74-99) H 11/11/18 08:57 POC Glucose (mg/dL) 252 mg/dL (75-99) H 11/11/18 20:57 POC Glu Found[employer] Tender ID Toña Botello 11/11/18 20:57 Plasma Lactic Acid James 1.8 mmol/L (0.7-2.0) 11/08/18 20:20 Calcium 6.3 mg/dL (8.4-10.2) L* 11/11/18 08:57 Iron 20 ug/dL (50-170) L 11/08/18 20:20 TIBC 180 ug/dL (228-460) L 11/08/18 20:20 Iron Saturation 11.11 (12.00-45.00) L 11/08/18 20:20 Total Bilirubin 0.2 mg/dL (0.2-1.3) 11/11/18 08:57 AST 26 U/L (14-36) 11/11/18 08:57 ALT 15 U/L (9-52) 11/11/18 08:57 Alkaline Phosphatase 58 U/L (38-126) 11/11/18 08:57 Total Protein 5.2 g/dL (6.3-8.2) L 11/11/18 08:57 Albumin 2.6 g/dL (3.5-5.0) L 11/11/18 08:57 Amylase 64 U/L (30-110) 11/08/18 20:20 Lipase 62 U/L (23-300) 11/08/18 20:20 Urine Color Yellow 11/09/18 10:45 Urine Appearance Cloudy (Clear) H 11/09/18 10:45 Urine pH 5.5 (5.0-8.0) 11/09/18 10:45 Ur Specific [place] 1.014 (1.001-1.035) 11/09/18 10:45 Urine Protein 1+ (Negative) H 11/09/18 10:45 Urine Glucose (UA) Negative (Negative) 11/09/18 10:45 Urine Ketones Negative (Negative) 11/09/18 10:45 Urine Blood Trace (Negative) H 11/09/18 10:45 Urine Nitrite Negative (Negative) 11/09/18 10:45 Urine Bilirubin Negative (Negative) 11/09/18 10:45 Urine Urobilinogen 2.0 mg/dL (<2.0) 11/09/18 10:45 Ur Leukocyte Esterase Moderate (Negative) H 11/09/18 10:45 Urine RBC 3 /hpf (0-5) 11/09/18 10:45 Urine WBC 15 /hpf (0-5) H 11/09/18 10:45 Ur Squamous Epith Cells 2 /hpf (0-4) 11/09/18 10:45 Urine Bacteria Rare /hpf (None) H 11/09/18 10:45 Hyaline Casts 1 /lpf (0-2) 11/09/18 10:45 Fluid Source Dialysate 11/11/18 07:00 Fluid Color Colorless 11/11/18 07:00 Fluid Appearance Clear 11/11/18 07:00 Fluid RBC 0 /uL 11/11/18 07:00 Fluid Nucleated Cells 14 /uL 11/11/18 07:00 Fluid Polynuclear WBCs 92 % 11/09/18 10:01 Fluid Mononuclear WBCs 8 % 11/09/18 10:01 Gentamicin Trough 3.1 ug/mL H* 11/11/18 14:44 Random Vancomycin 28.8 ug/mL 11/11/18 08:57 Microbiology 11/08/18 20:20 Blood Blood Culture - Preliminary No Growth after 72 hours 11/09/18 10:45 Urine,Voided Urine Culture - Final Escherichia coli 11/09/18 10:01 Peritoneal Fluid Gram Stain - Preliminary 11/09/18 10:01 Peritoneal Fluid Body Fluid Culture - Preliminary Assessment and Plan (1) Peritoneal dialysis catheter dysfunction Current Visit: Yes Status: Acute Code(s): T85.611A - BREAKDOWN OF INTRAPERIT ORTIZ DIALYSIS CATHETER, INIT SNOMED Code(s): 482573280 (2) End stage renal disease on dialysis Current Visit: Yes Status: Chronic Priority: High Code(s): N18.6 - END STAGE RENAL DISEASE; Z99.2 - DEPENDENCE ON RENAL DIALYSIS SNOMED Code(s): 957747799 (3) Peritonitis associated with peritoneal dialysis Narrative/Plan: 63-year-old woman who has a history of multiple medical troubles including diabetes and hypertension who has end-stage renal disease on peritoneal dialysis. Apparently developed a failure of the dialysis catheter itself and there was a leak. She then developed some peritonitis. He does not feeling better with treatment with vancomycin and gentamicin patient received intravenously and there's been a request for vancomycin be placed in her peritoneal dialysis itself. She did have a high-grade fever there is no improvement. She also had leukocytosis it's improving. Blood cultures negative so far. Urine culture will likely have pathogens as she's had in the past which have included Klebsiella and Proteus. If she improves she will be transitioned to antibiotics per peritoneal dialysis to complete the course of therapy. Currently it's vancomycin and gentamicin. May need to add further antibiotic therapy depending on the culture results especially if her urine culture is positive. 11/11/2018 a patient is being followed in nephrology there is a possible transition to hemodialysis on the surface further improvement of her creatinine with the changes of her peritoneal dialysis to improve the ultrafiltration through the day. Her abominal discomforts have improved. Her gentamicin level was elevated and is discontinued at this point in time. Vancomycin intravenous for now. If she is to transition to hemodialysis, could work with the n ephrology team for an antibiotic dwell to be placed intraperitoneally. Urinary tract infection that is isolated would be treated with the current gentamicin therapy that is all ready been initiated. Monitor. Current Visit: Yes Status: Acute Code(s): T85.71XA - INFECT/INFLM REACTION DUE TO PERITON DIALYSIS CATHETER, INIT SNOMED Code(s): 292786481
[2018-11-12] MEDS: DIALYSIS (PERIT 4.25%) 2000 ML 85 G/2,000 ML BAG INTRAPERIT SCH ×2 (00:06→05:43)
[2018-11-12] MEDS: LEVOTHYROXINE 75 MCG TAB PO SCH (06:09)
[2018-11-12] MEDS: MECLIZINE 25 MG TAB PO PRN (06:09)
[2018-11-12 07:19] LABS: Glucose,Whole Blood 288 mg/dL (75-99)
[2018-11-12] MEDS: INSULIN ASPART (NovoLOG) 100 UNIT/ML VIAL SQ SCH ×6 (07:46→20:47)
[2018-11-12] MEDS: METOPROLOL TARTRATE 25 MG TAB PO SCH ×2 (07:47→20:48)
[2018-11-12] MEDS: PANTOPRAZOLE 40 MG TABLET PO SCH (07:47)
[2018-11-12] MEDS: LOSARTAN 25 MG TAB PO SCH ×2 (07:47→20:49)
[2018-11-12] MEDS: CALCIUM ACETATE 667 MG CAP PO SCH ×3 (07:47→17:50)
[2018-11-12] MEDS: FUROSEMIDE 80 MG TAB PO SCH ×2 (07:47→15:15)
[2018-11-12] MEDS: CLOPIDOGREL 75 MG TAB PO SCH (07:47)
[2018-11-12] MEDS: FOLIC ACID-VIT B COMPLEX-VIT C 1 CAP PO SCH (07:47)
[2018-11-12 09:42] LABS: Albumin 2.5 g/dL (3.5-5.0); Calcium 6.5 mg/dL (8.4-10.2); Potassium 3.7 mmol/L (3.5-5.1); Total Bilirubin 0.3 mg/dL (0.2-1.3); Total Protein 5.1 g/dL (6.3-8.2)
[2018-11-12 09:44] LABS: Anisocytosis Slight; Basophils % (A) 1 %; Eosinophils # (A) 0.4 k/uL (0-0.7); Eosinophils % (A) 6 %; HCT 24.3 % (34.0-46.0); HGB 7.6 gm/dL (11.4-16.0); Hypochromasia Moderate; Lymphocytes # (A) 0.5 k/uL (1.0-4.8); Lymphocytes % (A) 9 %; MCH 31.1 pg (25.0-35.0); MCHC 31.4 g/dL (31.0-37.0); MCV 99.1 fL (80.0-100.0); Macrocytosis Slight; Mean Platelet Volume 9.6; Monocytes # (A) 0.2 k/uL (0-1.0); Monocytes % (A) 4 %; Neutrophils # (A) 4.7 k/uL (1.3-7.7); Neutrophils % (A) 79 %; Platelet Count 179 k/uL (150-450); RBC 2.45 m/uL (3.80-5.40); RDW 16.1 % (11.5-15.5); WBC 5.9 k/uL (3.8-10.6)
--- NOTE | 2018-11-12 09:56 | P.PN ---
Subjective Progress Note Date: 11/12/18 Principal diagnosis: abdominal pain Patient is a 63-year-old -[place] female with a past medical history of end-stage renal disease on peritoneal meal dialysis, diabetes, GERD, hypertension, and dyslipidemia who presented to the emergency department with complaints of lower abdominal pain, nausea, and vomiting. On arrival to the ER she underwent an extensive evaluation. Her initial vital signs were within normal limits. Several hours later she spiked a fever of 103. Initial laboratory analysis was consistent with her chronic anemia and renal disease. CT abdomen and pelvis showed mild nonspecific multiple retroperitoneal lymph nodes, pneumoperitoneum, and patchy atelectasis in the lung bases. Chest x-ray showed increased lung markings consistent with pulmonary congestion. Shoulder x-ray showed negative right shoulder exam. Initially she was started on R ocephin and Zithromax for possible pulmonary infiltrates. She was continued on her peritoneal dialysis, and she was continued on sliding scale insulin. She was seen by nephrology who is concerned with peritonitis. They ordered a cell count and Gram stain on the peritoneal fluid as well as 1 dose of intraperitoneal vancomycin. Surgery was consulted as there was leakage around her peritoneal dialysis catheter and they replaced the extension under aseptic conditions. This began working appropriately. Peritoneal fluid showed 35,000 white blood cells. Consistent with peritonitis. Infectious disease was consulted. She was continued on IV vancomycin and gentamicin. She was having some dark-colored malodorous urine. Urine culture came back positive for E. coli. She also was found to have an elevated gent level. She will be switched to intraperitoneal antibiotics with vanco and gent. She had been taken off her insulin pump at the start of hospital stay and BS elevating due to peritoneal dialysilate. Patient seen and examined at bedside. She continues to have ringing in her left ear, dizziness, and some hearing loss. She states her abdominal pain is better. Still no bowel movement. No nausea or vomiting. She is very concerned about developing C. diff if she has a history of C. diff. Objective - Vital Signs Vital signs: Vital Signs Temp 97.1 F L 11/12/18 05:30 Pulse 65 11/12/18 05:30 Resp 16 11/12/18 05:30 BP 131/60 11/12/18 05:30 Pulse Ox 94 L 11/12/18 05:30 Intake & Output 11/11/18 11/12/18 11/12/18 18:59 06:59 18:59 Intake Total 600 Output Total 300 Balance 600 -300 Intake: Oral 600 Output: Urine 300 Other: Voiding Method Diaper Diaper Incontinent Incontinent # Voids 1 0 # Bowel Movements 1 - Exam General: ill appearing, no distress, appears at stated age Derm: warm, dry Head: atraumatic, normocephalic, symmetric Eyes: EOMI, no lid lag, anicteric sclera Mouth: no lip lesion, mucus membranes moist Cardiovascular: S1S2 reg, no murmur, + radial pulses bilateral Lungs: decreased bs bilateral, no rhonchi, no rales , no accessory muscle use Abdominal: soft, +tender to palpation diffusely, no guarding, no appreciable organomegaly Ext: no gross muscle atrophy, no edema, no contractures, R AKA Neuro: CN II-XI grossly intact, no focal neuro deficits Psych: Alert, oriented, appropriate affect - Labs CBC & Chem 7: 11/12/18 09:05 11/11/18 08:57 Labs: Abnormal Lab Results - Last 24 Hours (Table) 11/11/18 11/11/18 11/11/18 Range/Units 08:57 08:57 12:11 RBC 2.50 L (3.80-5.40) m/uL Hgb 7.7 L (11.4-16.0) gm/dL Hct 25.6 L (34.0-46.0) % MCV 102.4 H (80.0-100.0) fL MCHC 30.0 L (31.0-37.0) g/dL RDW 15.7 H (11.5-15.5) % Neutrophils # 8.0 H (1.3-7.7) k/uL Lymphocytes # 0.3 L (1.0-4.8) k/uL Sodium 135 L (137-145) mmol/L BUN 62 H (7-17) mg/dL Creatinine 9.11 H* (0.52-1.04) mg/dL Glucose 434 H (74-99) mg/dL POC Glucose (mg/dL) 378 H (75-99) mg/dL Calcium 6.3 L* (8.4-10.2) mg/dL Total Protein 5.2 L (6.3-8.2) g/dL Albumin 2.6 L (3.5-5.0) g/dL Gentamicin Trough ug/mL 11/11/18 11/11/18 11/11/18 Range/Units 14:44 17:11 20:57 RBC (3.80-5.40) m/uL Hgb (11.4-16.0) gm/dL Hct (34.0-46.0) % MCV (80.0-100.0) fL MCHC (31.0-37.0) g/dL RDW (11.5-15.5) % Neutrophils # (1.3-7.7) k/uL Lymphocytes # (1.0-4.8) k/uL Sodium (137-145) mmol/L BUN (7-17) mg/dL Creatinine (0.52-1.04) mg/dL Glucose (74-99) mg/dL POC Glucose (mg/dL) 253 H 252 H (75-99) mg/dL Calcium (8.4-10.2) mg/dL Total Protein (6.3-8.2) g/dL Albumin (3.5-5.0) g/dL Gentamicin Trough 3.1 H* ug/mL 11/12/18 11/12/18 Range/Units 06:58 09:05 RBC 2.45 L (3.80-5.40) m/uL Hgb 7.6 L (11.4-16.0) gm/dL Hct 24.3 L (34.0-46.0) % MCV (80.0-100.0) fL MCHC (31.0-37.0) g/dL RDW 16.1 H (11.5-15.5) % Neutrophils # (1.3-7.7) k/uL Lymphocytes # 0.5 L (1.0-4.8) k/uL Sodium (137-145) mmol/L BUN (7-17) mg/dL Creatinine (0.52-1.04) mg/dL Glucose (74-99) mg/dL POC Glucose (mg/dL) 288 H (75-99) mg/dL Calcium (8.4-10.2) mg/dL Total Protein (6.3-8.2) g/dL Albumin (3.5-5.0) g/dL Gentamicin Trough ug/mL Microbiology - Last 24 Hours (Table) 11/08/18 20:20 Blood Culture - Preliminary Blood No Growth after 72 hours 11/09/18 10:45 Urine Culture - Final Urine,Voided Escherichia coli Assessment and Plan Assessment: Secondary peritonitis due to peritoneal dialysis - d/w Dr. Chu will need intraperitoneal gent once daily at 60 mg and vanco q 5 days. Can coordinate at [facility] clinic. - off IV gent and vanco - ID and nephro following - cultures pending Gentamycin toxicity - Off IV gent, await repeat level ESRD on peritoneal dialysis - PD cath working appropriatly, will continue with PD - nephro recs appreciated DM 2 with hyperglycemia - increase levemir, add fixed dose novolog - SSI - follow BS - will need Appt with Dr. hernandez soon after discharge. - plan will be to resume insulin pump at discharge - consult management engineer Hypothyroidism - synthroid Secondary hyperparathyrodism - phoslo HTN - controlled - lopressor, cozaar, lasix Pulm infiltrates - likely atelectasis DVT prophylaxis: SCDs Discussed with: Patient, nursing, Dr Chu Anticipated discharge: 1-[address]: home A total of 35 minutes was spent on the care of this complex patient more than 50% of the time was spent in counseling and care coordination.
[2018-11-12 10:09] LABS: Gentamicin,Random 2.3 ug/mL; Vancomycin,Random 25.4 ug/mL
--- NOTE | 2018-11-12 11:01 | P.PN ---
Subjective Patient is seen in follow-up for her incisional disease. She is maintained on peritoneal dialysis. She is maintaining net negative fluid balance with 4.25% exchanges. No abdominal pain. Edema is improving. Currently on IV gentamicin. She received intraperitoneal vancomycin on November 09. No chest pain or shortness of breath. Vital signs are stable. General: The patient appeared well nourished and normally developed. HEENT: Head exam is unremarkable. Neck is without jugular venous distension. LUNGS: Lungs are clear to auscultation and percussion. Breath sounds decreased. HEART: Rate and Rhythm are regular. First and second heart sounds normal. No murmurs, rubs or gallops. ABDOMEN: Abdominal exam reveals normal bowel sounds. Non-tender and non- distended. EXTREMITITES: 1+ edema. BKA noted. Objective - Vital Signs Vital signs: Vital Signs Temp 97.1 F L 11/12/18 05:30 Pulse 65 11/12/18 05:30 Resp 16 11/12/18 05:30 BP 131/60 11/12/18 05:30 Pulse Ox 94 L 11/12/18 05:30 Intake & Output 11/11/18 11/12/18 11/12/18 18:59 06:59 18:59 Intake Total 600 Output Total 300 Balance 600 -300 Intake: Oral 600 Output: Urine 300 Other: Voiding Method Diaper Diaper Diaper Incontinent Incontinent Incontinent # Voids 1 0 # Bowel Movements 1 - Labs CBC & Chem 7: 11/12/18 09:05 11/12/18 09:05 Labs: Abnormal Lab Results - Last 24 Hours (Table) 11/11/18 11/11/18 11/11/18 Range/Units 12:11 14:44 17:11 RBC (3.80-5.40) m/uL Hgb (11.4-16.0) gm/dL Hct (34.0-46.0) % RDW (11.5-15.5) % Lymphocytes # (1.0-4.8) k/uL BUN (7-17) mg/dL Creatinine (0.52-1.04) mg/dL Glucose (74-99) mg/dL POC Glucose (mg/dL) 378 H 253 H (75-99) mg/dL Calcium (8.4-10.2) mg/dL Total Protein (6.3-8.2) g/dL Albumin (3.5-5.0) g/dL Gentamicin Trough 3.1 H* ug/mL 11/11/18 11/12/18 11/12/18 Range/Units 20:57 06:58 09:05 RBC 2.45 L (3.80-5.40) m/uL Hgb 7.6 L (11.4-16.0) gm/dL Hct 24.3 L (34.0-46.0) % RDW 16.1 H (11.5-15.5) % Lymphocytes # 0.5 L (1.0-4.8) k/uL BUN (7-17) mg/dL Creatinine (0.52-1.04) mg/dL Glucose (74-99) mg/dL POC Glucose (mg/dL) 252 H 288 H (75-99) mg/dL Calcium (8.4-10.2) mg/dL Total Protein (6.3-8.2) g/dL Albumin (3.5-5.0) g/dL Gentamicin Trough ug/mL 11/12/18 Range/Units 09:05 RBC (3.80-5.40) m/uL Hgb (11.4-16.0) gm/dL Hct (34.0-46.0) % RDW (11.5-15.5) % Lymphocytes # (1.0-4.8) k/uL BUN 59 H (7-17) mg/dL Creatinine 9.51 H* (0.52-1.04) mg/dL Glucose 284 H (74-99) mg/dL POC Glucose (mg/dL) (75-99) mg/dL Calcium 6.5 L (8.4-10.2) mg/dL Total Protein 5.1 L (6.3-8.2) g/dL Albumin 2.5 L (3.5-5.0) g/dL Gentamicin Trough ug/mL Microbiology - Last 24 Hours (Table) 11/09/18 10:01 Gram Stain - Preliminary Peritoneal Fluid Body Fluid Culture - Preliminary 11/08/18 20:20 Blood Culture - Preliminary Blood No Growth after 72 hours 11/09/18 10:45 Urine Culture - Final Urine,Voided Escherichia coli Assessment and Plan Plan: Assessment: 1. End-stage renal disease maintained on peritoneal dialysis. 2. CAPD related peritonitis. Cell count improved significantly. Culture negative so far. 3. UTI with urine culture positive for E. coli. 4. Anemia of chronic kidney disease. Maintained on Aranesp. 5. Hypertension with chronic kidney disease. Controlled. 6. Insulin-dependent diabetes mellitus. 7. Chronic kidney disease mineral bone disease maintained on PhosLo. Plan: Discontinue IV gentamicin. Start intraperitoneal gentamicin 60 mg daily with one exchange. Repeat gentamicin level in the morning. Status post intraperitoneal vancomycin on November 09. Follow-up cultures. I will change the exchanges to 2 L alternating with 2.5 and 4.25% solution every 6 hours.
[2018-11-12] MEDS ORDERED: POLYETHYLENE GLYCOL 3350 17 GM POWD.PACK PO PRN (11:43)
[2018-11-12] MEDS ORDERED: DIALYSIS (PERIT 4.25%) 2000 ML 85 G/2,000 ML BAG INTRAPERIT SCH (12:00)
[2018-11-12 12:55] LABS: Glucose,Whole Blood 297 mg/dL (75-99)
[2018-11-12 17:21] LABS: Glucose,Whole Blood 212 mg/dL (75-99)
[2018-11-12] MEDS: DIALYSIS (PERIT 2.5%) 2,500 ML 50 G/2,000 ML BAG INTRAPERIT SCH (17:31)
[2018-11-12 18:07] LABS: Hemoglobin A1C 7.1 % (4.0-6.0)
[2018-11-12 20:45] LABS: Glucose,Whole Blood 227 mg/dL (75-99)
[2018-11-12] MEDS: INSULIN DETEMIR (LEVEMIR) 100 UNIT/ML SYR SQ SCH (20:48)
[2018-11-12] MEDS: ASPIRIN 81 MG PO SCH (20:49)
[2018-11-12] MEDS: PRAVASTATIN SODIUM 20 MG TAB PO SCH (20:49)
[2018-11-12] MEDS ORDERED: INSULIN DETEMIR (LEVEMIR) 100 UNIT/ML SYR SQ SCH (21:00)
[2018-11-13] MEDS ORDERED: DIALYSIS INTRAPERIT SCH
--- NOTE | 2018-11-13 00:51 | P.PN ---
Subjective Progress Note Date: 11/12/18 63-year-old woman who has a long-standing history of diabetes and hypertension who is developed end-stage renal disease and is on CAPD at home. The cycler. She relates that she does to 5 L bags on 3 L bag at night. Similar recently 3 L was added because she was not having affective dialysis. Since that time she's had some difficulties with some relative hypotension dizziness and weakness. She was recently seen at dialysis center and they're continue to monitor her due to the elevated creatinine. Apparently on she noticed some drainage on the floor after her dialysis. Was not exactly sure why there was drainage. The next day she was feeling poorly and was seen in the outpatient clinic. Yesterday patient had the sudden onset of high-grade fever chills severe abdominal pain with nausea and feeling very poorly overall and constantly presented to the emergency center. There there was evidence of the defect of the peritoneal dialysis line. She was seen by the surgeon in the line was changed. She's been treated with antibiotic therapy and antibiotics weren't added to her CAPD fluid per nephrology. With concerns to her CAPD related peritonitis the consult was requested. The patient alleges to feel better today but certainly has not completely resolved her symptoms. 11/11/2018 patient still not feeling well. Has a bit of dizziness today. The CAPD has not been effectively allowing ultrafiltration and her creatinine has continued to increase. She does not feel well overall. Nephrology has evaluated are considering transition to hemodialysis tomorrow if her creatinine does not start to show some improvement. Her abdominal pain has improved. Fluid is clear. 11/12/2018 the patient is still feeling somewhat poorly. She has poor appetite and anorexia. She has some malaise. She also has ongoing edema. She has been reevaluated by nephrology and with the resolution of the purulent fluid from her. She'll exchanges, plans will be to continue CAPD for now. Patient did have significant vascular complications from her prior left arm fistula. Objective - Vital Signs Vital signs: Vital Signs Temp 99.2 F 11/12/18 20:45 Pulse 66 11/12/18 20:45 Resp 12 11/12/18 20:45 BP 118/59 11/12/18 20:45 Pulse Ox 97 11/12/18 20:45 Intake & Output 11/12/18 11/12/18 11/13/18 06:59 18:59 06:59 Output Total 300 Balance -300 Output: Urine 300 Other: Voiding Method Diaper Diaper Diaper Incontinent Incontinent Incontinent # Voids 0 0 0 # Bowel Movements 1 0 - Exam HEENT: Anicteric conjunctiva are pink and moist nasal mucosa grossly intact without significant lesions, there is no thrush. Neck: The neck is supple without significant lymphadenopathy or thyromegaly. Lungs: Good bilateral air entry without significant crackles or wheezing. There is no significant bronchial sounds. There is no egophony or dullness. Heart: Regular rate and rhythm with an audible S1-S2, no S3 no S4. There is no significant murmur click or rub, PMI was nondisplaced. Abdomen: Positive bowel sounds, the abdomen has evidence of the fluid for the current dwell. There is distinct tenderness to the abdominal wall which apparently is improved from yesterday. There is no purulence from the peritoneal dialysis site. Extremities: The upper extremities have excellent pulses they are symmetric, no significant petechiae or telangiectasia. No splinter hemorrhages were noted. The lower extremities have some chronic edema but no open ulcers the peripheral pulses were 2+ and symmetric. Neuro: Awake alert oriented to person place and time. - Labs CBC & Chem 7: 11/12/18 09:05 11/12/18 09:05 Labs: Abnormal Lab Results - Last 24 Hours (Table) 11/12/18 11/12/18 11/12/18 Range/Units 06:58 09:05 09:05 RBC 2.45 L (3.80-5.40) m/uL Hgb 7.6 L (11.4-16.0) gm/dL Hct 24.3 L (34.0-46.0) % RDW 16.1 H (11.5-15.5) % Lymphocytes # 0.5 L (1.0-4.8) k/uL BUN (7-17) mg/dL Creatinine (0.52-1.04) mg/dL Glucose (74-99) mg/dL POC Glucose (mg/dL) 288 H (75-99) mg/dL Hemoglobin A1c 7.1 H (4.0-6.0) % Calcium (8.4-10.2) mg/dL Total Protein (6.3-8.2) g/dL Albumin (3.5-5.0) g/dL 11/12/18 11/12/18 11/12/18 Range/Units 09:05 12:29 17:17 RBC (3.80-5.40) m/uL Hgb (11.4-16.0) gm/dL Hct (34.0-46.0) % RDW (11.5-15.5) % Lymphocytes # (1.0-4.8) k/uL BUN 59 H (7-17) mg/dL Creatinine 9.51 H* (0.52-1.04) mg/dL Glucose 284 H (74-99) mg/dL POC Glucose (mg/dL) 297 H 212 H (75-99) mg/dL Hemoglobin A1c (4.0-6.0) % Calcium 6.5 L (8.4-10.2) mg/dL Total Protein 5.1 L (6.3-8.2) g/dL Albumin 2.5 L (3.5-5.0) g/dL 11/12/18 Range/Units 20:44 RBC (3.80-5.40) m/uL Hgb (11.4-16.0) gm/dL Hct (34.0-46.0) % RDW (11.5-15.5) % Lymphocytes # (1.0-4.8) k/uL BUN (7-17) mg/dL Creatinine (0.52-1.04) mg/dL Glucose (74-99) mg/dL POC Glucose (mg/dL) 227 H (75-99) mg/dL Hemoglobin A1c (4.0-6.0) % Calcium (8.4-10.2) mg/dL Total Protein (6.3-8.2) g/dL Albumin (3.5-5.0) g/dL Microbiology - Last 24 Hours (Table) 11/08/18 20:20 Blood Culture - Preliminary Blood No Growth after 96 hours 11/09/18 10:01 Gram Stain - Preliminary Peritoneal Fluid Body Fluid Culture - Preliminary Laboratory Results WBC 5.9 k/uL (3.8-10.6) 11/12/18 09:05 RBC 2.45 m/uL (3.80-5.40) L 11/12/18 09:05 Hgb 7.6 gm/dL (11.4-16.0) L 11/12/18 09:05 Hct 24.3 % (34.0-46.0) L 11/12/18 09:05 MCV 99.1 fL (80.0-100.0) 11/12/18 09:05 MCH 31.1 pg (25.0-35.0) 11/12/18 09:05 MCHC 31.4 g/dL (31.0-37.0) 11/12/18 09:05 RDW 16.1 % (11.5-15.5) H 11/12/18 09:05 Plt Count 179 k/uL (150-450) 11/12/18 09:05 Neutrophils % 79 % 11/12/18 09:05 Lymphocytes % 9 % 11/12/18 09:05 Monocytes % 4 % 11/12/18 09:05 Eosinophils % 6 % 11/12/18 09:05 Basophils % 1 % 11/12/18 09:05 Neutrophils # 4.7 k/uL (1.3-7.7) 11/12/18 09:05 Lymphocytes # 0.5 k/uL (1.0-4.8) L 11/12/18 09:05 Monocytes # 0.2 k/uL (0-1.0) 11/12/18 09:05 Eosinophils # 0.4 k/uL (0-0.7) 11/12/18 09:05 Basophils # 0.0 k/uL (0-0.2) 11/12/18 09:05 Hypochromasia Moderate 11/12/18 09:05 Anisocytosis Slight 11/12/18 09:05 Macrocytosis Slight 11/12/18 09:05 Sodium 139 mmol/L (137-145) 11/12/18 09:05 Potassium 3.7 mmol/L (3.5-5.1) 11/12/18 09:05 Chloride 102 mmol/L (98-107) 11/12/18 09:05 Carbon Dioxide 28 mmol/L (22-30) 11/12/18 09:05 Anion Gap 9 mmol/L 11/12/18 09:05 BUN 59 mg/dL (7-17) H 11/12/18 09:05 Creatinine 9.51 mg/dL (0.52-1.04) H* 11/12/18 09:05 Est GFR (CKD-EPI)AfAm 4 (>60 ml/min/1.73 sqM) 11/12/18 09:05 Est GFR (CKD-EPI)NonAf 4 (>60 ml/min/1.73 sqM) 11/12/18 09:05 Glucose 284 mg/dL (74-99) H 11/12/18 09:05 POC Glucose (mg/dL) 227 mg/dL (75-99) H 11/12/18 20:44 POC Glu Delivery Motorcycle Driver ID Toña Botello 11/12/18 20:[address] Glu mg/dL 157 11/12/18 09:05 Hemoglobin A1c 7.1 % (4.0-6.0) H 11/12/18 09:05 Plasma Lactic Acid James 1.8 mmol/L (0.7-2.0) 11/08/18 20:20 Calcium 6.5 mg/dL (8.4-10.2) L 11/12/18 09:05 Iron 20 ug/dL (50-170) L 11/08/18 20:20 TIBC 180 ug/dL (228-460) L 11/08/18 20:20 Iron Saturation 11.11 (12.00-45.00) L 11/08/18 20:20 Total Bilirubin 0.3 mg/dL (0.2-1.3) 11/12/18 09:05 AST 21 U/L (14-36) 11/12/18 09:05 ALT 16 U/L (9-52) 11/12/18 09:05 Alkaline Phosphatase 50 U/L (38-126) 11/12/18 09:05 Total Protein 5.1 g/dL (6.3-8.2) L 11/12/18 09:05 Albumin 2.5 g/dL (3.5-5.0) L 11/12/18 09:05 Amylase 64 U/L (30-110) 11/08/18 20:20 Lipase 62 U/L (23-300) 11/08/18 20:20 Urine Color Yellow 11/09/18 10:45 Urine Appearance Cloudy (Clear) H 11/09/18 10:45 Urine pH 5.5 (5.0-8.0) 11/09/18 10:45 Ur Specific [place] 1.014 (1.001-1.035) 11/09/18 10:45 Urine Protein 1+ (Negative) H 11/09/18 10:45 Urine Glucose (UA) Negative (Negative) 11/09/18 10:45 Urine Ketones Negative (Negative) 11/09/18 10:45 Urine Blood Trace (Negative) H 11/09/18 10:45 Urine Nitrite Negative (Negative) 11/09/18 10:45 Urine Bilirubin Negative (Negative) 11/09/18 10:45 Urine Urobilinogen 2.0 mg/dL (<2.0) 11/09/18 10:45 Ur Leukocyte Esterase Moderate (Negative) H 11/09/18 10:45 Urine RBC 3 /hpf (0-5) 11/09/18 10:45 Urine WBC 15 /hpf (0-5) H 11/09/18 10:45 Ur Squamous Epith Cells 2 /hpf (0-4) 11/09/18 10:45 Urine Bacteria Rare /hpf (None) H 11/09/18 10:45 Hyaline Casts 1 /lpf (0-2) 11/09/18 10:45 Fluid Source Dialysate 11/11/18 07:00 Fluid Color Colorless 11/11/18 07:00 Fluid Appearance Clear 11/11/18 07:00 Fluid RBC 0 /uL 11/11/18 07:00 Fluid Nucleated Cells 14 /uL 11/11/18 07:00 Fluid Polynuclear WBCs 92 % 11/09/18 10:01 Fluid Mononuclear WBCs 8 % 11/09/18 10:01 Gentamicin Trough 3.1 ug/mL H* 11/11/18 14:44 Random Gentamicin 2.3 ug/mL 11/12/18 09:05 Random Vancomycin 25.4 ug/mL 11/12/18 09:05 Microbiology 11/08/18 20:20 Blood Blood Culture - Preliminary No Growth after 96 hours 11/09/18 10:01 Peritoneal Fluid Gram Stain - Preliminary 11/09/18 10:01 Peritoneal Fluid Body Fluid Culture - Preliminary 11/09/18 10:45 Urine,Voided Urine Culture - Final Escherichia coli Assessment and Plan (1) Peritoneal dialysis catheter dysfunction Current Visit: Yes Status: Acute Code(s): T85.611A - BREAKDOWN OF INTRAPERITONEAL DIALYSIS CATHETER, INIT SNOMED Code(s): 351609268 (2) End stage renal disease on dialysis Current Visit: Yes Status: Chronic Priority: High Code(s): N18.6 - END STAGE RENAL DISEASE; Z99.2 - DEPENDENCE ON RENAL DIALYSIS SNOMED Code(s): 171800237 (3) Peritonitis associated with peritoneal dialysis Narrative/Plan: 63-year-old woman who has a history of multiple medical troubles including diabetes and hypertension who has end-stage renal disease on peritoneal dialysis. Apparently developed a failure of the dialysis catheter itself and there was a leak. She then developed some peritonitis. He does not feeling better with treatment with vancomycin and gentamicin patient received intravenously and there's been a request for vancomycin be placed in her peritoneal dialysis itself. She did have a high-grade fever there is no im provement. She also had leukocytosis it's improving. Blood cultures negative so far. Urine culture will likely have pathogens as she's had in the past which have included Klebsiella and Proteus. If she improves she will be transitioned to antibiotics per peritoneal dialysis to complete the course of therapy. Currently it's vancomycin and gentamicin. May need to add further antibiotic therapy depending on the culture results especially if her urine culture is positive. 11/11/2018 a patient is being followed in nephrology there is a possible transition to hemodialysis on the surface further improvement of her creatinine with the changes of her peritoneal dialysis to improve the ultrafiltration through the day. Her abominal discomforts have improved. Her gentamicin level was elevated and is discontinued at this point in time. Vancomycin intravenous for now. If she is to transition to hemodialysis, could work with the nephrology team for an antibiotic dwell to be placed intraperitoneally. Urinary tract infection that is isolated would be treated with the current gentamicin therapy that is all ready been initiated. Monitor. 11/12/2018 the patient is having some improvement except she still having some uremic symptoms with nausea and anorexia. Does appear to be having some effective fluid exchange and negative balance. Nephrology is hoping that with the changes of the peritoneal dialysis fluid that she will have improved ultrafiltration also checked reduce her creatinine improve her symptoms. She does have vascular difficulties and would be a challenge to go back to hemodialysis. Gentamicin intraperitoneal is being utilized which we'll treat CAPD as well as her urinary tract infection. Current Visit: Yes Status: Acute Code(s): T85.71XA - INFECT/INFLM REACTION DUE TO PERITON DIALYSIS CATHETER, INIT SNOMED Code(s): 978602453
[2018-11-13] MEDS: LEVOTHYROXINE 75 MCG TAB PO SCH (05:40)
[2018-11-13] MEDS: DIALYSIS (PERIT 2.5%) 2,500 ML 50 G/2,000 ML BAG INTRAPERIT SCH ×2 (05:49→18:07)
[2018-11-13 07:35] LABS: Glucose,Whole Blood 310 mg/dL (75-99)
[2018-11-13] MEDS: PANTOPRAZOLE 40 MG TABLET PO SCH (07:42)
[2018-11-13] MEDS: METOPROLOL TARTRATE 25 MG TAB PO SCH ×2 (07:42→21:32)
[2018-11-13] MEDS: CLOPIDOGREL 75 MG TAB PO SCH (07:42)
[2018-11-13] MEDS: CALCIUM ACETATE 667 MG CAP PO SCH ×3 (07:42→17:39)
[2018-11-13] MEDS: INSULIN ASPART (NovoLOG) 100 UNIT/ML VIAL SQ SCH ×7 (07:42→21:33)
[2018-11-13] MEDS: FUROSEMIDE 80 MG TAB PO SCH ×2 (07:42→17:39)
[2018-11-13] MEDS: LOSARTAN 25 MG TAB PO SCH ×2 (07:42→21:32)
[2018-11-13] MEDS: FOLIC ACID-VIT B COMPLEX-VIT C 1 CAP PO SCH (07:44)
[2018-11-13] MEDS ORDERED: LACTULOSE 20 GM/30 ML CUP PO PRN (10:32)
--- NOTE | 2018-11-13 10:39 | P.PN ---
Subjective Patient is seen in follow-up for end-stage renal disease. She is maintained on peritoneal dialysis. She is maintaining net negative fluid balance with alternating 2.5 and 4.25% exchanges. No abdominal pain. Edema is improving. Currently on intraperitoneal gentamicin. Patient received intraperitoneal vancomycin on November 09. No chest pain or shortness of breath. Vital signs are stable. General: The patient appeared well nourished and normally developed. HEENT: Head exam is unremarkable. Neck is without jugular venous distension. LUNGS: Lungs are clear to auscultation and percussion. Breath sounds decreased. HEART: Rate and Rhythm are regular. First and second heart sounds normal. No murmurs, rubs or gallops. ABDOMEN: Abdominal exam reveals normal bowel sounds. Non-tender and non- distended. EXTREMITITES: 1+ edema. Right BKA noted. Objective - Vital Signs Vital signs: Vital Signs Temp 97.9 F 11/13/18 04:20 Pulse 65 11/13/18 04:20 Resp 14 11/13/18 04:20 BP 135/60 11/13/18 07:50 Pulse Ox 97 11/13/18 04:20 Intake & Output 11/12/18 11/13/18 11/13/18 18:59 06:59 18:59 Other: Voiding Method Diaper Diaper Incontinent Incontinent # Voids 0 0 # Bowel Movements 0 - Labs CBC & Chem 7: 11/12/18 09:05 11/12/18 09:05 Labs: Abnormal Lab Results - Last 24 Hours (Table) 11/12/18 11/12/18 11/12/18 Range/Units 09:05 12:29 17:17 POC Glucose (mg/dL) 297 H 212 H (75-99) mg/dL Hemoglobin A1c 7.1 H (4.0-6.0) % 11/12/18 11/13/18 Range/Units 20:44 06:50 POC Glucose (mg/dL) 227 H 310 H (75-99) mg/dL Hemoglobin A1c (4.0-6.0) % Microbiology - Last 24 Hours (Table) 11/09/18 10:01 Gram Stain - Final Peritoneal Fluid Body Fluid Culture - Final 11/08/18 20:20 Blood Culture - Preliminary Blood No Growth after 96 hours Assessment and Plan Plan: Assessment: 1. End-stage renal disease maintained on peritoneal dialysis. 2. CAPD related peritonitis. Cell count improved significantly. Culture negative so far. 3. UTI with urine culture positive for E. coli. 4. Anemia of chronic kidney disease. Maintained on Aranesp. 5. Hypertension with chronic kidney disease. Controlled. 6. Insulin-dependent diabetes mellitus. 7. Chronic kidney disease mineral bone disease maintained on PhosLo. 8. Constipation. Plan: Continue intraperitoneal gentamicin 60 mg daily - started November 12. Follow-up gentamicin level. Status post intraperitoneal vancomycin on November 09. Follow-up cultures. I will change the exchanges to 2 L with 2.5% dextrose solution every 6 hours. Add lactulose 15 g 3 times daily as needed for constipation.
[2018-11-13 10:43] LABS: Albumin 2.8 g/dL (3.5-5.0); Calcium 6.9 mg/dL (8.4-10.2); Potassium 3.5 mmol/L (3.5-5.1); Total Bilirubin 0.2 mg/dL (0.2-1.3); Total Protein 5.9 g/dL (6.3-8.2)
[2018-11-13 11:14] LABS: Anisocytosis Slight; Basophils % (A) 1 %; Eosinophils # (A) 0.3 k/uL (0-0.7); Eosinophils % (A) 6 %; HCT 28.7 % (34.0-46.0); Lymphocytes # (A) 0.5 k/uL (1.0-4.8); Lymphocytes % (A) 10 %; MCH 30.6 pg (25.0-35.0); MCHC 31.6 g/dL (31.0-37.0); MCV 96.8 fL (80.0-100.0); Mean Platelet Volume 10.4; Monocytes # (A) 0.3 k/uL (0-1.0); Monocytes % (A) 6 %; Neutrophils # (A) 3.9 k/uL (1.3-7.7); Neutrophils % (A) 77 %; Platelet Count 188 k/uL (150-450); RBC 2.96 m/uL (3.80-5.40); RDW 16.4 % (11.5-15.5); WBC 5.1 k/uL (3.8-10.6)
[2018-11-13 11:27] LABS: HGB 9.1 gm/dL (11.4-16.0)
[2018-11-13 11:43] LABS: Glucose,Whole Blood 208 mg/dL (75-99)
--- NOTE | 2018-11-13 11:44 | P.PN ---
Subjective Progress Note Date: 11/13/18 Today Mrs. Cedillo reports that her abdominal pain is getting better as compared to when she came to the hospital a few days ago. Patient states that she does have pain in the right and also across the abdomen area although it is slowly improving. Patient denies nausea vomiting and diarrhea. Patient is currently on intraperitoneal gentamicin and vancomycin management for her secondary peritonitis. Infectious disease and nephrology are on case for their expert advices and recommendations. Patient reported some cough but unable to bring up any phlegm. No other issues were brought up by the patient or the nurse. Patient hemoglobin noted to be stable at 7.6 g/dL which is about the same since admission. Patient denies chest pain, palpitation, headache, dizziness, lightheadedness and denies rest of the review system. Objective - Vital Signs Vital signs: Vital Signs Temp 97.9 F 11/13/18 04:20 Pulse 65 11/13/18 04:20 Resp 14 11/13/18 04:20 BP 135/60 11/13/18 07:50 Pulse Ox 97 11/13/18 04:20 Intake & Output 11/12/18 11/13/18 11/13/18 18:59 06:59 18:59 Other: Voiding Method Diaper Diaper Incontinent Incontinent # Voids 0 0 1 # Bowel Movements 0 1 - Constitutional General appearance: Present: cooperative, no acute distress - EENT Eyes: Present: EOMI, normal appearance ENT: Present: hearing grossly normal, NA/AT - Neck Neck: Present: normal ROM. Absent: lymphadenopathy, rigidity - Respiratory Respiratory: bilateral: CTA, negative: rales, rhonchi, wheezing - Cardiovascular Heart sounds: normal: S1, S2 Abnormal Heart Sounds: Absent: systolic murmur, diastolic murmur, S3 Gallop, S4 Gallop - Gastrointestinal Gastrointestinal Comment(s): Paritonial dialysis catheter in place in the right lower abdomen area, no drainage, erythema or tenderness noted at the insertion site. Abdomen is soft, bulky, bowel sound positive, soreness/tenderness in central and bilateral flank areas. No guarding, rigidity or rebound tenderness detected. - Neurologic Neurologic: Present: CNII-XII intact. 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 - Psychiatric Psychiatric: Present: A&O x's 3, appropriate affect - Allied health notes Allied health notes reviewed: nursing - Labs CBC & Chem 7: 11/13/18 09:54 11/13/18 09:54 Labs: Abnormal Lab Results - Last 24 Hours (Table) 11/12/18 11/12/18 11/12/18 Range/Units 09:05 12:29 17:17 BUN (7-17) mg/dL Creatinine (0.52-1.04) mg/dL Glucose (74-99) mg/dL POC Glucose (mg/dL) 297 H 212 H (75-99) mg/dL Hemoglobin A1c 7.1 H (4.0-6.0) % Calcium (8.4-10.2) mg/dL Total Protein (6.3-8.2) g/dL Albumin (3.5-5.0) g/dL 11/12/18 11/13/18 11/13/18 Range/Units 20:44 06:50 09:54 BUN 60 H (7-17) mg/dL Creatinine 9.66 H* (0.52-1.04) mg/dL Glucose 293 H (74-99) mg/dL POC Glucose (mg/dL) 227 H 310 H (75-99) mg/dL Hemoglobin A1c (4.0-6.0) % Calcium 6.9 L (8.4-10.2) mg/dL Total Protein 5.9 L (6.3-8.2) g/dL Albumin 2.8 L (3.5-5.0) g/dL Microbiology - Last 24 Hours (Table) 11/09/18 10:01 Gram Stain - Final Peritoneal Fluid Body Fluid Culture - Final 11/08/18 20:20 Blood Culture - Preliminary Blood No Growth after 96 hours Assessment and Plan (1) Peritonitis associated with peritoneal dialysis Current Visit: Yes Status: Acute Priority: High Code(s): T85.71XA - INFECT/INFLM REACTION DUE TO PERITON DIALYSIS CATHETER, INIT SNOMED Code(s): 836792831 (2) End stage renal disease on dialysis Current Visit: Yes Status: Chronic Priority: High Code(s): N18.6 - END STAGE RENAL DISEASE; Z99.2 - DEPENDENCE ON RENAL DIALYSIS SNOMED Code(s): 716637484 (3) Anemia Current Visit: Yes Status: Chronic Priority: Medium Code(s): D64.9 - ANEMIA, UNSPECIFIED SNOMED Code(s): 285741493 (4) Hypothyroidism Current Visit: No Status: Acute Priority: Medium Code(s): E03.9 - HYPOTHYROIDISM, UNSPECIFIED SNOMED Code(s): 47894729 (5) Type 2 diabetes mellitus with hyperglycemia Current Visit: Yes Status: Chronic Priority: High Code(s): E11.65 - TYPE 2 DIABETES MELLITUS WITH HYPERGLYCEMIA SNOMED Code(s): 241396871455589 (6) Uncontrolled hypertension Current Visit: Yes Status: Chronic Priority: Medium Code(s): I10 - ESSENTIAL (PRIMARY) HYPERTENSION SNOMED Code(s): 80709026 Plan: Patient is clinically improving on the current management. She is getting gentamicin along with every 5 day vancomycin intraperitoneal. Her abdominal pain still persisting although it is slowly improving. Final recommendation will be from infectious disease and nephrology services regarding discharge and duration of antibiotic treatment. Patient's blood sugar was running high and day peritoneal dialysis the fluid is being adjusted by Dr. Chu. Patient's gentamicin and vancomycin level will be repeated again today and she will be continued on current management plan. Time with Patient: Less than 30
[2018-11-13] MEDS ORDERED: DIALYSIS DEX INTRAPERIT SCH (12:00)
[2018-11-13] MEDS ORDERED: GENTAMICIN INTRAPERIT SCH (12:00)
[2018-11-13] MEDS ORDERED: DIALYSIS (PERIT 2.5%) 2,500 ML 50 G/2,000 ML BAG INTRAPERIT SCH (12:00)
[2018-11-13] MEDS: GENTAMICIN INTRAPERIT SCH (13:28)
[2018-11-13] MEDS: DIALYSIS DEX INTRAPERIT SCH (13:28)
[2018-11-13 17:03] LABS: Glucose,Whole Blood 222 mg/dL (75-99)
[2018-11-13 20:19] LABS: Glucose,Whole Blood 248 mg/dL (75-99)
[2018-11-13] MEDS: ASPIRIN 81 MG PO SCH (21:32)
[2018-11-13] MEDS: INSULIN DETEMIR (LEVEMIR) 100 UNIT/ML SYR SQ SCH (21:32)
[2018-11-13] MEDS: PRAVASTATIN SODIUM 20 MG TAB PO SCH (21:32)
[2018-11-14] MEDS: HYDROcodone/APAP 5-325MG 1 EACH TAB PO PRN ×3 (00:04→22:12)
[2018-11-14] MEDS: DIALYSIS (PERIT 2.5%) 2,500 ML 50 G/2,000 ML BAG INTRAPERIT SCH ×4 (00:29→23:56)
[2018-11-14 00:41] LABS: Glucose,Whole Blood 176 mg/dL (75-99)
[2018-11-14] MEDS: LEVOTHYROXINE 75 MCG TAB PO SCH (06:24)
[2018-11-14 07:27] LABS: Glucose,Whole Blood 163 mg/dL (75-99)
[2018-11-14 08:00] LABS: Basophils % (A) 1 %; Eosinophils # (A) 0.3 k/uL (0-0.7); Eosinophils % (A) 6 %; HCT 26.7 % (34.0-46.0); HGB 8.2 gm/dL (11.4-16.0); Lymphocytes # (A) 0.7 k/uL (1.0-4.8); Lymphocytes % (A) 14 %; MCH 30.2 pg (25.0-35.0); MCHC 30.7 g/dL (31.0-37.0); MCV 98.2 fL (80.0-100.0); Macrocytosis Slight; Mean Platelet Volume 9.8; Monocytes # (A) 0.2 k/uL (0-1.0); Monocytes % (A) 4 %; Neutrophils # (A) 3.4 k/uL (1.3-7.7); Neutrophils % (A) 72 %; Platelet Count 234 k/uL (150-450); RBC 2.72 m/uL (3.80-5.40); RDW 15.7 % (11.5-15.5); WBC 4.7 k/uL (3.8-10.6)
[2018-11-14] MEDS: CALCIUM ACETATE 667 MG CAP PO SCH ×3 (08:11→16:48)
[2018-11-14] MEDS: METOPROLOL TARTRATE 25 MG TAB PO SCH ×2 (08:11→21:59)
[2018-11-14] MEDS: FUROSEMIDE 80 MG TAB PO SCH ×2 (08:11→15:59)
[2018-11-14] MEDS: PANTOPRAZOLE 40 MG TABLET PO SCH (08:11)
[2018-11-14] MEDS: CLOPIDOGREL 75 MG TAB PO SCH (08:11)
[2018-11-14] MEDS: LOSARTAN 25 MG TAB PO SCH ×2 (08:11→21:59)
[2018-11-14] MEDS: FOLIC ACID-VIT B COMPLEX-VIT C 1 CAP PO SCH (08:11)
[2018-11-14] MEDS: INSULIN ASPART (NovoLOG) 100 UNIT/ML VIAL SQ SCH ×8 (08:11→22:02)
[2018-11-14 08:14] LABS: Albumin 2.4 g/dL (3.5-5.0); Calcium 6.6 mg/dL (8.4-10.2); Potassium 3.3 mmol/L (3.5-5.1); Total Bilirubin 0.2 mg/dL (0.2-1.3); Total Protein 5.1 g/dL (6.3-8.2)
[2018-11-14] MEDS ORDERED: POTASSIUM CHLORIDE ER 20 MEQ TAB.ER PO STA (09:06)
--- NOTE | 2018-11-14 09:08 | P.PN ---
Subjective Patient is seen in follow-up for end-stage renal disease. She is maintained on peritoneal dialysis. She is maintaining net negative fluid balance with 2.5% exchanges. No abdominal pain. Edema is improving. Currently on intraperitoneal gentamicin. Patient received intraperitoneal vancomycin on November 09. No chest pain or shortness of breath. Vital signs are stable. General: The patient appeared well nourished and normally developed. HEENT: Head exam is unremarkable. Neck is without jugular venous distension. LUNGS: Lungs are clear to auscultation and percussion. Breath sounds decreased. HEART: Rate and Rhythm are regular. First and second heart sounds normal. No murmurs, rubs or gallops. ABDOMEN: Abdominal exam reveals normal bowel sounds. Non-tender and non- distended. EXTREMITITES: 1+ edema. Right BKA noted. Objective - Vital Signs Vital signs: Vital Signs Temp 98.4 F 11/14/18 06:15 Pulse 68 11/14/18 06:15 Resp 18 11/14/18 06:15 BP 136/78 11/14/18 06:15 Pulse Ox 97 11/14/18 06:15 Intake & Output 11/13/18 11/14/18 11/14/18 18:59 06:59 18:59 Intake Total 300 Output Total 1 Balance 299 Intake: Oral 300 Output: Urine/Stool Mix 1 Other: Voiding Method Diaper Incontinent # Voids 1 1 # Bowel Movements 0 1 - Labs CBC & Chem 7: 11/14/18 07:37 11/14/18 07:37 Labs: Abnormal Lab Results - Last 24 Hours (Table) 11/13/18 11/13/18 11/13/18 Range/Units 09:54 09:54 11:40 RBC 2.96 L (3.80-5.40) m/uL Hgb 9.1 L D (11.4-16.0) gm/dL Hct 28.7 L (34.0-46.0) % MCHC (31.0-37.0) g/dL RDW 16.4 H (11.5-15.5) % Lymphocytes # 0.5 L (1.0-4.8) k/uL Potassium (3.5-5.1) mmol/L BUN 60 H (7-17) mg/dL Creatinine 9.66 H* (0.52-1.04) mg/dL Glucose 293 H (74-99) mg/dL POC Glucose (mg/dL) 208 H (75-99) mg/dL Calcium 6.9 L (8.4-10.2) mg/dL Total Protein 5.9 L (6.3-8.2) g/dL Albumin 2.8 L (3.5-5.0) g/dL 11/13/18 11/13/18 11/14/18 Range/Units 16:50 20:09 00:14 RBC (3.80-5.40) m/uL Hgb (11.4-16.0) gm/dL Hct (34.0-46.0) % MCHC (31.0-37.0) g/dL RDW (11.5-15.5) % Lymphocytes # (1.0-4.8) k/uL Potassium (3.5-5.1) mmol/L BUN (7-17) mg/dL Creatinine (0.52-1.04) mg/dL Glucose (74-99) mg/dL POC Glucose (mg/dL) 222 H 248 H 176 H (75-99) mg/dL Calcium (8.4-10.2) mg/dL Total Protein (6.3-8.2) g/dL Albumin (3.5-5.0) g/dL 11/14/18 11/14/18 11/14/18 Range/Units 07:22 07:37 07:37 RBC 2.72 L (3.80-5.40) m/uL Hgb 8.2 L (11.4-16.0) gm/dL Hct 26.7 L (34.0-46.0) % MCHC 30.7 L (31.0-37.0) g/dL RDW 15.7 H (11.5-15.5) % Lymphocytes # 0.7 L (1.0-4.8) k/uL Potassium 3.3 L (3.5-5.1) mmol/L BUN 52 H (7-17) mg/dL Creatinine 8.89 H* (0.52-1.04) mg/dL Glucose 158 H (74-99) mg/dL POC Glucose (mg/dL) 163 H (75-99) mg/dL Calcium 6.6 L (8.4-10.2) mg/dL Total Protein 5.1 L (6.3-8.2) g/dL Albumin 2.4 L (3.5-5.0) g/dL Microbiology - Last 24 Hours (Table) 11/08/18 20:20 Blood Culture - Preliminary Blood No Growth after 120 hours 11/09/18 10:01 Gram Stain - Final Peritoneal Fluid Body Fluid Culture - Final Assessment and Plan Plan: Assessment: 1. End-stage renal disease maintained on peritoneal dialysis. 2. CAPD related peritonitis. Cell count improved significantly. Culture negative so far. 3. UTI with urine culture positive for E. coli. 4. Anemia of chronic kidney disease. Maintained on Aranesp. 5. Hypertension with chronic kidney disease. Controlled. 6. Insulin-dependent diabetes mellitus. 7. Chronic kidney disease mineral bone disease maintained on PhosLo. 8. Constipation. Better with lactulose. She had a bowel movement yesterday. 9. Hypokalemia secondary to diuresis and PD losses. Plan: Continue intraperitoneal gentamicin 60 mg daily - started November 12. Follow-up gentamicin level. Status post intraperitoneal vancomycin on November 09. Follow-up cultures. Maintain 2 L exchanges with 2.5% dextrose solution every 6 hours. Continue lactulose 15 g 3 times daily as needed for constipation. Replace potassium. 40 mEq today.
[2018-11-14 10:53] VITALS: BMI 35.4
--- NOTE | 2018-11-14 11:06 | P.PN ---
Subjective Progress Note Date: 11/14/18 Patient reports today she is feeling slightly more better than yesterday her pain in the abdomen is a and she is working with the therapy. It was reported this morning during the utilization meeting that patient has refused to go to subacute rehabilitation and would like to go home with home care. Patient reports that she had a chronic ulcer on the left lateral ankle area which she was using specialized dressing but hasn't been changed since she is here in the hospital. Patient gentamicin dose was increased to 75 mg daily with peritoneal dialysis but actually she is getting the 60 mg dose with dialysis fluid. Patient's random gentamicin level is 2.9 which is slightly higher than previous one of 2.3. Patient blood sugar log was reviewed and sugar seems to be fairly better controlled on current peritoneal dialysis solution. Patient denies chest pain, palpitation, diaphoresis, fever, chills, nausea, vomiting, diarrhea and denies rest of the review of system. Objective - Vital Signs Vital signs: Vital Signs Temp 98.4 F 11/14/18 06:15 Pulse 68 11/14/18 06:15 Resp 18 11/14/18 06:15 BP 136/78 11/14/18 06:15 Pulse Ox 97 11/14/18 06:15 Intake & Output 11/13/18 11/14/18 11/14/18 18:59 06:59 18:59 Intake Total 300 Output Total 1 Balance 299 Intake: Oral 300 Output: Urine/Stool Mix 1 Other: Voiding Method Diaper Incontinent # Voids 1 1 0 # Bowel Movements 0 1 0 - Constitutional General appearance: Present: cooperative, no acute distress - EENT Eyes: Present: EOMI, normal appearance ENT: Present: hearing grossly normal - Neck Neck: Present: normal ROM - Respiratory Respiratory: bilateral: CTA, negative: rales, rhonchi, wheezing - Cardiovascular Rhythm: regular Heart sounds: normal: S1, S2 Abnormal Heart Sounds: Absent: systolic murmur, diastolic murmur, S3 Gallop - Gastrointestinal General gastrointestinal: Present: normal bowel sounds, soft. Absent: distended, rigid, tenderness - Neurologic Neurologic: Present: CNII-XII intact. Absent: focal deficits - Psychiatric Psychiatric: Present: A&O x's 3, appropriate affect, intact judgment & insight - Allied health notes Allied health notes reviewed: case management (Regarding patient's post discharge disposition and also care coordinated with the nurse on duty.) - Labs CBC & Chem 7: 11/14/18 07:37 11/14/18 07:37 Labs: Abnormal Lab Results - Last 24 Hours (Table) 11/13/18 11/13/18 11/13/18 Range/Units 09:54 09:54 11:40 RBC 2.96 L (3.80-5.40) m/uL Hgb 9.1 L D (11.4-16.0) gm/dL Hct 28.7 L (34.0-46.0) % MCHC (31.0-37.0) g/dL RDW 16.4 H (11.5-15.5) % Lymphocytes # 0.5 L (1.0-4.8) k/uL Potassium (3.5-5.1) mmol/L BUN 60 H (7-17) mg/dL Creatinine 9.66 H* (0.52-1.04) mg/dL Glucose 293 H (74-99) mg/dL POC Glucose (mg/dL) 208 H (75-99) mg/dL Calcium 6.9 L (8.4-10.2) mg/dL Total Protein 5.9 L (6.3-8.2) g/dL Albumin 2.8 L (3.5-5.0) g/dL 11/13/18 11/13/18 11/14/18 Range/Units 16:50 20:09 00:14 RBC (3.80-5.40) m/uL Hgb (11.4-16.0) gm/dL Hct (34.0-46.0) % MCHC (31.0-37.0) g/dL RDW (11.5-15.5) % Lymphocytes # (1.0-4.8) k/uL Potassium (3.5-5.1) mmol/L BUN (7-17) mg/dL Creatinine (0.52-1.04) mg/dL Glucose (74-99) mg/dL POC Glucose (mg/dL) 222 H 248 H 176 H (75-99) mg/dL Calcium (8.4-10.2) mg/dL Total Protein (6.3-8.2) g/dL Albumin (3.5-5.0) g/dL 11/14/18 11/14/18 11/14/18 Range/Units 07:22 07:37 07:37 RBC 2.72 L (3.80-5.40) m/uL Hgb 8.2 L (11.4-16.0) gm/dL Hct 26.7 L (34.0-46.0) % MCHC 30.7 L (31.0-37.0) g/dL RDW 15.7 H (11.5-15.5) % Lymphocytes # 0.7 L (1.0-4.8) k/uL Potassium 3.3 L (3.5-5.1) mmol/L BUN 52 H (7-17) mg/dL Creatinine 8.89 H* (0.52-1.04) mg/dL Glucose 158 H (74-99) mg/dL POC Glucose (mg/dL) 163 H (75-99) mg/dL Calcium 6.6 L (8.4-10.2) mg/dL Total Protein 5.1 L (6.3-8.2) g/dL Albumin 2.4 L (3.5-5.0) g/dL Microbiology - Last 24 Hours (Table) 11/08/18 20:20 Blood Culture - Preliminary Blood No Growth after 120 hours 11/09/18 10:01 Gram Stain - Final Peritoneal Fluid Body Fluid Culture - Final Assessment and Plan (1) Peritonitis associated with peritoneal dialysis Current Visit: Yes Status: Acute Priority: High Code(s): T85.71XA - INFECT/INFLM REACTION DUE TO PERITON DIALYSIS CATHETER, INIT SNOMED Code(s): 002355006 (2) End stage renal disease on dialysis Current Visit: Yes Status: Chronic Priority: High Code(s): N18.6 - END STAGE RENAL DISEASE; Z99.2 - DEPENDENCE ON RENAL DIALYSIS SNOMED Code(s): 778815383 (3) Anemia Current Visit: Yes Status: Chronic Priority: Medium Code(s): D64.9 - ANEMIA, UNSPECIFIED SNOMED Code(s): 731463234 (4) Hypothyroidism Current Visit: No Status: Acute Priority: Medium Code(s): E03.9 - HYPOTHYROIDISM, UNSPECIFIED SNOMED Code(s): 89475018 (5) Type 2 diabetes mellitus with hyperglycemia Current Visit: Yes Status: Chronic Priority: High Code(s): E11.65 - TYPE 2 DIABETES MELLITUS WITH HYPERGLYCEMIA SNOMED Code(s): 566039934826242 (6) Uncontrolled hypertension Current Visit: Yes Status: Chronic Priority: Medium Code(s): I10 - ESSENTIAL (PRIMARY) HYPERTENSION SNOMED Code(s): 77805095 (7) Ulcer of ankle due to type 2 diabetes mellitus Current Visit: Yes Status: Acute Priority: High Code(s): E11.622 - TYPE 2 DIABETES MELLITUS WITH OTHER SKIN ULCER; L97.309 - NON-PRESSURE CHRONIC ULCER OF UNSP ANKLE WITH UNSP SEVERITY SNOMED Code(s): 18235111406348 Plan: Wound care referral will be placed for the left ankle wound management. Patient blood sugars are better controlled with current management I will continue that. Patient was educated and a lot of counseling was done regarding her care, independency, deconditioning, need for rehabilitation and to become as close to her pre-illness baseline as possible and for achieving all this it was recommended that she should continue therapy while in the hospital and actively pursue the subacute rehabilitation route which is a very short time for a week or 2 depending upon patient's involvement and recovery and therapy and that she can be discharged from there to her home and home care. Patient did understood the need for subacute rehabilitation for her better care and agreed that she will go that route if needed. This was coming K today to the nurse who will become negating it to the social work associate and the utilization teems along with the physical therapy and occupational therapy teams. Patient is clinically improving and if continues to improve that she will be able to be discharged provided in next 24-48 hours, provided if it is okay with Dr. Gan and Dr. Chu. Time with Patient: Greater than 30 (More than 50% of time was spent in counseli ng and educating the patient regarding her needs and care that can be provided at subacute rehab.)
[2018-11-14] MEDS: GENTAMICIN INTRAPERIT SCH (11:37)
[2018-11-14] MEDS: DIALYSIS DEX INTRAPERIT SCH (11:37)
--- NOTE | 2018-11-14 11:56 | P.WNDSOAP ---
Subjective Progress Note Date: 11/14/18 Principal diagnosis: Diabetic foot ulcer with fatty layer exposure with pressure component This is a pleasant 63-year-old -[place] female who has a chronic diabetic foot ulcer with fatty layer exposure with pressure component that started approximately 6 weeks ago. Patient had been following up with her traffic control officer to notice the ulceration and has been treating it. Patient was scheduled to see the wound care center on Sunday however she has been hospitalized due to abdominal pain. Patient denies any drainage from the ulceration. Patient does report pain and tenderness to site. Patient does not have any redness. Patient states that she had a previous ulceration on the right foot that resulted in a below the knee amputation. Patient has been seen by Dr. Jaramillo who stated she had good blood flow to the left lower extremity. Patient has past medical history of diabetes mellitus, peritoneal dialysis, acid reflux, hyperlipidemia, hypertension, memory impairment, stage IV renal disease, diabetic neuropathy, and below the knee amputation. Prior to hospitalization patient was using a wet to dry dressing and wrapping with gauze. During hospitalization, dressing has been Telfa and wrapped with Kerlix. Patient has decreased sensation to the forefoot. Review Of Systems: Constitutional: No fever, no chills, no night sweats. No weight change. Reports weakness and fatigue no lethargy. No daytime sleepiness. EENT: No headache. No blurred vision or double vision, no loss of vision. No loss of Hearing, no ringing in the ears, no dizziness. No nasal drainage or congestion. No epistaxis. No sore throat. Lungs: No shortness of breath, cough, no sputum production. No wheezing. Cardiovascular: No chest pain, no lower extremity edema. No palpitations. No paroxysmal nocturnal dyspnea. No orthopnea. No lightheadedness or dizziness. No syncopal episodes. Abdominal: Reports abdominal discomfort. Reports nausea, vomiting but has subsided. no diarrhea. No constipation. No bloody or tarry stools. Report loss of appetite. Genitourinary: No dysuria, increased frequency, urgency. No urinary retention. Musculoskeletal: No myalgias. No muscle weakness, no gait dysfunction, no frequent falls. No back pain. No neck pain. Integumentary: Reports wounds No rash or pruritus. No unusual bruising. No change in hair or nails. Neurologic: No aphasia. No facial droop. No change in mentation. No head injury. No headache. No paralysis. No paresthesia. Psychiatric: No depression. No anxiety. No mood swings. Objective - Vital Signs Vital signs: Vital Signs Temp 98.4 F 11/14/18 11:24 Pulse 76 11/14/18 11:24 Resp 16 11/14/18 11:24 BP 159/68 11/14/18 11:24 Pulse Ox 97 11/14/18 06:15 Intake & Output 11/13/18 11/14/18 11/14/18 18:59 06:59 18:59 Intake Total 300 Output Total 1 Balance 299 Weight 112 kg Intake: Oral 300 Output: Urine/Stool Mix 1 Other: Voiding Method Diaper Incontinent # Voids 1 1 0 # Bowel Movements 0 1 0 - Exam General Appearance: Alert, cooperative, no distress, appears stated age. Neck HEENT: Supple, no lymphadenopathy, no thyroid enlargement, no carotid bruits. Lungs: Clear to auscultation without crackles or wheezes no rhonchi, no deformity. Heart: Regular rate and rhythm, S1, S2 normal, no murmur, rub or gallop. Extremities: Right below the knee amputation all other extremities normal, atraumatic, no cyanosis or edema. Pulses: Bilateral radial and left pedal right femoral 2+ Skin: Full thickness diabetic foot ulcer to the lateral aspect of the left calcaneus, positive exudate, no drainage. Callus to the lateral aspect of the fifth digit of the left foot, skin is intact no drainage noted. Skin color, mingo ture, tugor normal, no rashes Neurologic: Alert oriented x3 cranial nerves II through XII intact, no motor deficit, - Labs CBC & Chem 7: 11/14/18 07:37 11/14/18 07:37 Labs: Abnormal Lab Results - Last 24 Hours (Table) 11/13/18 11/13/18 11/13/18 Range/Units 09:54 11:40 16:50 RBC (3.80-5.40) m/uL Hgb 9.1 L D (11.4-16.0) gm/dL Hct (34.0-46.0) % MCHC (31.0-37.0) g/dL RDW (11.5-15.5) % Lymphocytes # (1.0-4.8) k/uL Potassium (3.5-5.1) mmol/L BUN (7-17) mg/dL Creatinine (0.52-1.04) mg/dL Glucose (74-99) mg/dL POC Glucose (mg/dL) 208 H 222 H (75-99) mg/dL Calcium (8.4-10.2) mg/dL Total Protein (6.3-8.2) g/dL Albumin (3.5-5.0) g/dL 11/13/18 11/14/18 11/14/18 Range/Units 20:09 00:14 07:22 RBC (3.80-5.40) m/uL Hgb (11.4-16.0) gm/dL Hct (34.0-46.0) % MCHC (31.0-37.0) g/dL RDW (11.5-15.5) % Lymphocytes # (1.0-4.8) k/uL Potassium (3.5-5.1) mmol/L BUN (7-17) mg/dL Creatinine (0.52-1.04) mg/dL Glucose (74-99) mg/dL POC Glucose (mg/dL) 248 H 176 H 163 H (75-99) mg/dL Calcium (8.4-10.2) mg/dL Total Protein (6.3-8.2) g/dL Albumin (3.5-5.0) g/dL 11/14/18 11/14/18 Range/Units 07:37 07:37 RBC 2.72 L (3.80-5.40) m/uL Hgb 8.2 L (11.4-16.0) gm/dL Hct 26.7 L (34.0-46.0) % MCHC 30.7 L (31.0-37.0) g/dL RDW 15.7 H (11.5-15.5) % Lymphocytes # 0.7 L (1.0-4.8) k/uL Potassium 3.3 L (3.5-5.1) mmol/L BUN 52 H (7-17) mg/dL Creatinine 8.89 H* (0.52-1.04) mg/dL Glucose 158 H (74-99) mg/dL POC Glucose (mg/dL) (75-99) mg/dL Calcium 6.6 L (8.4-10.2) mg/dL Total Protein 5.1 L (6.3-8.2) g/dL Albumin 2.4 L (3.5-5.0) g/dL Microbiology - Last 24 Hours (Table) 11/08/18 20:20 Blood Culture - Preliminary Blood No Growth after 120 hours 11/09/18 10:01 Gram Stain - Final Peritoneal Fluid Body Fluid Culture - Final Assessment and Plan (1) Diabetic ulcer of foot with fat layer exposed Current Visit: Yes Status: Acute Code(s): E11.621 - TYPE 2 DIABETES MELLITUS WITH FOOT ULCER; L97.502 - NON-PRS CHRONIC ULCER OTH PRT UNSP FOOT W FAT LAYER EXPOSED SNOMED Code(s): 371744238 (2) End stage renal disease on dialysis Current Visit: Yes Status: Chronic Priority: High Code(s): N18.6 - END STAGE RENAL DISEASE; Z99.2 - DEPENDENCE ON RENAL DIALYSIS SNOMED Code(s): 811937437 (3) Debility Current Visit: Yes Status: Acute Priority: Medium Code(s): R53.81 - OTHER MALAISE SNOMED Code(s): 52866381 Plan: 1. Diabetic foot ulcer with fatty layer exposure with pressure component. Obtain pre-albumin, cleanse room with normal saline, apply honey gel, dry gauze, rolled gauze and tape to secure. Dressing changes Sunday, , and Sun. Schedule for wound center appointment upon discharge. Apply heel support when laying in bed. Hemoglobin A1c 7.1. Discussed with patient importance of not adding additional pressure to the site. 2. Nonhealing ulceration. As noted above 3. End-stage renal failure on dialysis. Continue with CAPD Discharge plan: Patient to be discharged to extended care facility plan to continue with outpatient wound care services at that time. DNP note has been reviewed and discussed with Dr. Adams and the impression and plan of care has been directed as dictated.
[2018-11-14 12:01] LABS: Glucose,Whole Blood 148 mg/dL (75-99)
[2018-11-14 17:10] LABS: Glucose,Whole Blood 149 mg/dL (75-99)
[2018-11-14 20:25] LABS: Glucose,Whole Blood 180 mg/dL (75-99)
[2018-11-14] MEDS: PRAVASTATIN SODIUM 20 MG TAB PO SCH (21:59)
[2018-11-14] MEDS: ASPIRIN 81 MG PO SCH (21:59)
[2018-11-14] MEDS: INSULIN DETEMIR (LEVEMIR) 100 UNIT/ML SYR SQ SCH (22:00)
[2018-11-15] MEDS: LEVOTHYROXINE 75 MCG TAB PO SCH (05:29)
[2018-11-15] MEDS: DIALYSIS (PERIT 2.5%) 2,500 ML 50 G/2,000 ML BAG INTRAPERIT SCH (05:29)
[2018-11-15 07:07] LABS: Glucose,Whole Blood 208 mg/dL (75-99)
[2018-11-15] MEDS: LOSARTAN 25 MG TAB PO SCH ×2 (08:19→21:20)
[2018-11-15] MEDS: FUROSEMIDE 80 MG TAB PO SCH ×2 (08:19→15:47)
[2018-11-15] MEDS: CALCIUM ACETATE 667 MG CAP PO SCH ×3 (08:19→17:34)
[2018-11-15] MEDS: PANTOPRAZOLE 40 MG TABLET PO SCH (08:19)
[2018-11-15] MEDS: BISACODYL 5 MG TABLET.DR PO PRN (08:19)
[2018-11-15] MEDS: METOPROLOL TARTRATE 25 MG TAB PO SCH ×2 (08:19→21:19)
[2018-11-15] MEDS: CLOPIDOGREL 75 MG TAB PO SCH (08:19)
[2018-11-15] MEDS: FOLIC ACID-VIT B COMPLEX-VIT C 1 CAP PO SCH (08:19)
[2018-11-15] MEDS: INSULIN ASPART (NovoLOG) 100 UNIT/ML VIAL SQ SCH ×6 (08:20→21:19)
--- NOTE | 2018-11-15 09:22 | P.DS ---
Providers Date of admission: 11/09/18 00:00 Expected date of discharge: 11/15/18 Attending physician: Gavin Jenkins MD Consults: 11/08/18 23:43 Consult Physician Stat Consulting Provider: Zoey Archer Consult Reason/Comments: peritoneal diaylsis, Do you want consulting provider notified?: Yes, Notify in am 11/09/18 16:59 Consult Physician Routine Consulting Provider: Piero Strickland Consult Reason/Comments: Leaking/cut peritoneal dialysis catheter; placed this catheter Do you want consulting provider notified?: Yes 11/10/18 09:24 Consult Physician Routine Consulting Provider: Jerome Gan Consult Reason/Comments: Peritonitis Do you want consulting provider notified?: Yes Primary care physician: Ailyn Eaton MD Hospital Course: 63-year-old female with PMH of ESRD on prior to dialysis, diabetes mellitus, GERD, hypertension and dyslipidemia presented to the ED for lower abdominal pain, nausea and vomiting. Patient is a stable vital signs except for a fever of [address] of the abdomen and pelvis showed multiple retroperitoneal lymph nodes, pneumoperitoneum, patchy atelectasis in the lung base. Patient was initially started on Rocephin and azithromycin for pneumonia. Nephrology was consulted and there was some concerns for peritonitis. Peritoneal fluid showed 35,000 white blood cells consistent with peritonitis. General surgery was consulted for leaking peritoneal dialysis catheter, which was replaced. She was started on IV vancomycin and gentamicin and infectious disease was consulted. Urine cultures are positive for E. coli. Patient was switched from IV to intraperitoneal vancomycin and gentamicin. patient was seen and examined. No acute events overnight. General: [non toxic], [no distress], [appears at stated age] Derm: [warm], [dry] Head: [atraumatic], [normocephalic], [symmetric] Eyes: [EOMI], [no lid lag], [anicteric sclera] Mouth: [no lip lesion], [mucus membranes moist] Cardiovascular: [S1S2 reg], [no murmur] Lungs: [CTA bilateral], [no rhonchi, no rales] , [no accessory muscle use] Abdominal: [soft], [ nontender to palpation], [no guarding], [no appreciable organomegaly] Ext: [no gross muscle atrophy], [no edema], [no contractures], [right BKA, left ankle dressing clean dry and intact] Neuro: [no focal neuro deficits] Psych: [Alert], [oriented], [appropriate affect] Secondary peritonitis due to peritoneal dialysis ESRD on peritoneal dialysis Chronic lower extremity wounds Diabetes mellitus with hyperglycemia Hypothyroidism Secondary hyperparathyroidism Hypertension Obesity Afebrile since 11/12/2018 with no leukocytosis. Peritoneal fluid initially showed 35,600 white blood cells consistent with peritonitis. Blood culture negative. Plans: Continue Gentamicin intraperitoneal. Will discuss with ID in terms of duration of antibiotics. Tylenol as needed for fever.adequate pain control. BUN 52, creatinine 8.89. Plans: Continue intraperitoneal dialysis. Avoid nephrotoxins. Replace monitor electrolytes. Renal diet. Follow nephrology recommendations. Seen by wound clinic. Low prealbumin 14. Albumin low at 2.4. Plans: Heel support. Plans for follow-up at wound clinic. Point of care glucose 208. Plans: Levemir 15 units at bedtime. NovoLog 20 units 3 times a day with meals. Insulin sliding scope. Regular Accu-Cheks. Hypoglycemic precautions. Plans: Continue Synthroid. Plans: Continue calcium acetate. BP 140/63. Plans: Continue metoprolol and losartan. Monitor vitals, adjust medications as necessary. BMI 35.4. Plans: Structured weight loss program. Abdominal pain improving with IV antibiotics. Plans to continue gentamicin intraperitoneal. Discussed with ID, gentamicin for 1 week. Plans for rehab at [facility]. Discussed with social work, possible DC today if antibiotic and peritoneal dialysis supplies are ranged at [facility]. Pertinent Studies: CT abdomen and pelvis, chest x-ray, shoulder x-ray Patient Condition at Discharge: Stable Plan - Discharge Summary Discharge Rx Participant: No New Discharge Prescriptions: New Lactulose [Cephulac] 10 gm PO TID PRN #0 ml PRN Reason: Constipation Insulin Detemir (Levemir) [Levemir] 14 unit SQ HS #0 syr Metoprolol Tartrate [Lopressor] 25 mg PO BID #0 tab HYDROcodone/APAP 5-325MG [[place] 5-325] 1 each PO Q6HR PRN #12 tab PRN Reason: Pain Continue Pantoprazole [Protonix] 40 mg PO DAILY Levothyroxine Sodium [Synthroid] 75 mcg PO DAILY Pravastatin Sodium [Pravachol] 20 mg PO HS Calcium Acetate [PhosLo] 667 mg PO AC-TID Clopidogrel [Plavix] 75 mg PO DAILY Rosio-Thomas 1 tab PO DAILY Meclizine [Antivert] 25 mg PO TID PRN PRN Reason: Vertigo Aspirin [Adult Low Dose Aspirin EC] 81 mg PO HS Acetaminophen Tab [Tylenol] 1,000 mg PO Q8H Furosemide [Lasix] 80 mg PO BID Losartan [Cozaar] 25 mg PO DIRECTED Pregabalin [Lyrica] 50 mg PO BID #6 cap Discontinued Metoprolol Tartrate [Lopressor] 12.5 mg PO BID Discharge Medication List Levothyroxine Sodium [Synthroid] 75 mcg PO DAILY 10/09/16 [History] Pantoprazole [Protonix] 40 mg PO DAILY 10/09/16 [History] Pravastatin Sodium [Pravachol] 20 mg PO HS 10/09/16 [History] Calcium Acetate [PhosLo] 667 mg PO AC-TID 03/11/17 [History] Clopidogrel [Plavix] 75 mg PO DAILY 03/11/17 [History] Rosio-Thomas 1 tab PO DAILY 03/11/17 [History] Meclizine [Antivert] 25 mg PO TID PRN 04/26/17 [History] Aspirin [Adult Low Dose Aspirin EC] 81 mg PO HS 06/07/17 [History] Acetaminophen Tab [Tylenol] 1,000 mg PO Q8H 04/23/18 [History] Furosemide [Lasix] 80 mg PO BID 04/23/18 [History] Losartan [Cozaar] 25 mg PO DIRECTED 04/23/18 [History] HYDROcodone/APAP 5-325MG [[place] 5-325] 1 each PO Q6HR PRN #12 tab 11/15/18 [Rx] Insulin Detemir (Levemir) [Levemir] 14 unit SQ HS #0 syr 11/15/18 [Rx] Lactulose [Cephulac] 10 gm PO TID PRN #0 ml 11/15/18 [Rx] Metoprolol Tartrate [Lopressor] 25 mg PO BID #0 tab 11/15/18 [Rx] Pregabalin [Lyrica] 50 mg PO BID #6 cap 11/15/18 [Rx] Follow up Appointment(s)/Referral(s): Ailyn Eaton MD [Primary Care Provider] - 1-2 days [facility], [NON-STAFF] - Esperanza Chua NPC [Nurse Practitioner] - 1 Week Jerome Gan MD [STAFF PHYSICIAN] - 1 Week Zoey Archer MD [STAFF PHYSICIAN] - 1 Week Ambulatory/Diagnostic Orders: Basic Metabolic Panel [LAB.AMB] Time Frame: 3 Days, Location: None Selected Activity/Diet/Wound Care/Special Instructions: Diet: Renal diet Follow-up with PCP within 1-2 days of discharge. Follow-up with wound clinic within 1 week of discharge. Follow-up with infectious disease within 1 week of discharge. follow-up with nephrology within 1 week of discharge. Take all medications as advised. Discharge Disposition: TRANSFER TO SNF/ECF
[2018-11-15 10:30] LABS: Basophils % (A) 1 %; Eosinophils # (A) 0.2 k/uL (0-0.7); Eosinophils % (A) 5 %; HCT 27.8 % (34.0-46.0); HGB 8.6 gm/dL (11.4-16.0); Hypochromasia Slight; Lymphocytes # (A) 0.6 k/uL (1.0-4.8); Lymphocytes % (A) 13 %; MCH 30.4 pg (25.0-35.0); MCHC 30.8 g/dL (31.0-37.0); MCV 98.7 fL (80.0-100.0); Macrocytosis Slight; Mean Platelet Volume 8.7; Monocytes # (A) 0.2 k/uL (0-1.0); Monocytes % (A) 4 %; Neutrophils # (A) 3.9 k/uL (1.3-7.7); Neutrophils % (A) 76 %; Platelet Count 244 k/uL (150-450); RBC 2.82 m/uL (3.80-5.40); RDW 15.8 % (11.5-15.5); WBC 5.1 k/uL (3.8-10.6)
[2018-11-15 10:44] LABS: Albumin 2.6 g/dL (3.5-5.0); Calcium 7.2 mg/dL (8.4-10.2); Potassium 3.6 mmol/L (3.5-5.1); Total Bilirubin 0.2 mg/dL (0.2-1.3); Total Protein 5.3 g/dL (6.3-8.2)
[2018-11-15] MEDS: GENTAMICIN INTRAPERIT SCH (11:59)
[2018-11-15] MEDS: DIALYSIS DEX INTRAPERIT SCH (11:59)
[2018-11-15 12:06] LABS: Glucose,Whole Blood 139 mg/dL (75-99)
[2018-11-15] MEDS ORDERED: MD COMMUNICATION TO PHARMACY 1 EACH MISC PO PRN (12:33)
[2018-11-15] MEDS ORDERED: POTASSIUM CHLORIDE ER 20 MEQ TAB.ER PO STA (13:13)
--- NOTE | 2018-11-15 13:13 | P.PN ---
Subjective Patient is seen in follow-up for end-stage renal disease. She is maintained on peritoneal dialysis. She is maintaining net negative fluid balance with 2.5% exchanges. No abdominal pain. Edema is improving. Currently on intraperitoneal gentamicin. Patient received intraperitoneal vancomycin on November 09. No chest pain or shortness of breath. Feels tired. Otherwise no active complaints. Vital signs are stable. General: The patient appeared well nourished and normally developed. HEENT: Head exam is unremarkable. Neck is without jugular venous distension. LUNGS: Lungs are clear to auscultation and percussion. Breath sounds decreased. HEART: Rate and Rhythm are regular. First and second heart sounds normal. No murmurs, rubs or gallops. ABDOMEN: Abdominal exam reveals normal bowel sounds. Non-tender and non- distended. EXTREMITITES: 1+ edema. Right BKA noted. Objective - Vital Signs Vital signs: Vital Signs Temp 97.8 F 11/15/18 12:00 Pulse 68 11/15/18 12:00 Resp 16 11/15/18 12:00 BP 136/65 11/15/18 12:00 Pulse Ox 98 11/15/18 05:36 Intake & Output 11/14/18 11/15/18 11/15/18 18:59 06:59 18:59 Intake Total 300 Balance 300 Weight 112 kg Intake: Oral 300 Other: Voiding Method Diaper Incontinent # Voids 0 2 0 # Bowel Movements 0 0 0 - Labs CBC & Chem 7: 11/15/18 09:37 11/15/18 09:37 Labs: Abnormal Lab Results - Last 24 Hours (Table) 11/14/18 11/14/18 11/14/18 Range/Units 07:37 17:02 20:13 RBC (3.80-5.40) m/uL Hgb (11.4-16.0) gm/dL Hct (34.0-46.0) % MCHC (31.0-37.0) g/dL RDW (11.5-15.5) % Lymphocytes # (1.0-4.8) k/uL BUN (7-17) mg/dL Creatinine (0.52-1.04) mg/dL Glucose (74-99) mg/dL POC Glucose (mg/dL) 149 H 180 H (75-99) mg/dL Calcium (8.4-10.2) mg/dL Total Protein (6.3-8.2) g/dL Albumin (3.5-5.0) g/dL Prealbumin 14.0 L (18.0-42.0) mg/dL 11/15/18 11/15/18 11/15/18 Range/Units 06:46 09:37 09:37 RBC 2.82 L (3.80-5.40) m/uL Hgb 8.6 L (11.4-16.0) gm/dL Hct 27.8 L (34.0-46.0) % MCHC 30.8 L (31.0-37.0) g/dL RDW 15.8 H (11.5-15.5) % Lymphocytes # 0.6 L (1.0-4.8) k/uL BUN 49 H (7-17) mg/dL Creatinine 8.89 H* (0.52-1.04) mg/dL Glucose 164 H (74-99) mg/dL POC Glucose (mg/dL) 208 H (75-99) mg/dL Calcium 7.2 L (8.4-10.2) mg/dL Total Protein 5.3 L (6.3-8.2) g/dL Albumin 2.6 L (3.5-5.0) g/dL Prealbumin (18.0-42.0) mg/dL 11/15/18 Range/Units 11:45 RBC (3.80-5.40) m/uL Hgb (11.4-16.0) gm/dL Hct (34.0-46.0) % MCHC (31.0-37.0) g/dL RDW (11.5-15.5) % Lymphocytes # (1.0-4.8) k/uL BUN (7-17) mg/dL Creatinine (0.52-1.04) mg/dL Glucose (74-99) mg/dL POC Glucose (mg/dL) 139 H (75-99) mg/dL Calcium (8.4-10.2) mg/dL Total Protein (6.3-8.2) g/dL Albumin (3.5-5.0) g/dL Prealbumin (18.0-42.0) mg/dL Microbiology - Last 24 Hours (Table) 11/08/18 20:20 Blood Culture - Final Blood No Growth after 144 hours Assessment and Plan Plan: Assessment: 1. End-stage renal disease maintained on peritoneal dialysis. 2. CAPD related peritonitis. Cell count improved significantly. Culture negative so far. 3. UTI with urine culture positive for E. coli. 4. Anemia of chronic kidney disease. Maintained on Aranesp. 5. Hypertension with chronic kidney disease. Controlled. 6. Insulin-dependent diabetes mellitus. 7. Chronic kidney disease mineral bone disease maintained on PhosLo. 8. Constipation. Better with lactulose. She had a bowel movement yesterday. 9. Hypokalemia secondary to diuresis and PD losses. Better post replacement. Plan: Continue intraperitoneal gentamicin 60 mg daily - started November 12. Status post intraperitoneal vancomycin on November 09. I will give her another dose today. Follow-up cultures. Maintain 2 L exchanges with 2.5% dextrose solution every 6 hours. Continue lactulose 15 g 3 times daily as needed for constipation. Replace potassium. 40 mEq today.
[2018-11-15 17:28] LABS: Glucose,Whole Blood 140 mg/dL (75-99)
[2018-11-15] MEDS ORDERED: VANCOMYCIN 1,250 MG in DIALYSIS (PERITONL) DEX 2.5% 2,000 ML INTRAPERIT ONE (18:00)
[2018-11-15] MEDS: HYDROcodone/APAP 5-325MG 1 EACH TAB PO PRN (19:37)
[2018-11-15 20:56] LABS: Glucose,Whole Blood 225 mg/dL (75-99)
[2018-11-15] MEDS: ASPIRIN 81 MG PO SCH (21:19)
[2018-11-15] MEDS: INSULIN DETEMIR (LEVEMIR) 100 UNIT/ML SYR SQ SCH (21:19)
[2018-11-15] MEDS: PRAVASTATIN SODIUM 20 MG TAB PO SCH (21:20)
[2018-11-15] MEDS: PREGABALIN 50 MG CAP PO SCH (21:20)
[2018-11-16] MEDS: DIALYSIS (PERIT 2.5%) 2,500 ML 50 G/2,000 ML BAG INTRAPERIT SCH ×3 (00:15→17:27)
[2018-11-16] MEDS: LEVOTHYROXINE 75 MCG TAB PO SCH (05:34)
[2018-11-16 07:25] LABS: Glucose,Whole Blood 237 mg/dL (75-99)
[2018-11-16] MEDS: INSULIN ASPART (NovoLOG) 100 UNIT/ML VIAL SQ SCH ×7 (07:50→20:58)
[2018-11-16] MEDS: CALCIUM ACETATE 667 MG CAP PO SCH ×3 (07:51→17:28)
[2018-11-16] MEDS: FUROSEMIDE 80 MG TAB PO SCH ×2 (07:51→17:28)
[2018-11-16] MEDS: CLOPIDOGREL 75 MG TAB PO SCH (07:51)
[2018-11-16] MEDS: FOLIC ACID-VIT B COMPLEX-VIT C 1 CAP PO SCH (07:51)
[2018-11-16] MEDS: PANTOPRAZOLE 40 MG TABLET PO SCH (07:51)
[2018-11-16] MEDS: METOPROLOL TARTRATE 25 MG TAB PO SCH ×2 (07:51→20:54)
[2018-11-16] MEDS: LOSARTAN 25 MG TAB PO SCH ×2 (07:54→20:54)
[2018-11-16] MEDS: PREGABALIN 50 MG CAP PO SCH ×2 (07:54→20:54)
[2018-11-16 09:03] LABS: Anisocytosis Slight; Basophils # (A) 0.1 k/uL (0-0.2); Basophils % (A) 1 %; Eosinophils # (A) 0.3 k/uL (0-0.7); Eosinophils % (A) 4 %; HGB 8.7 gm/dL (11.4-16.0); Hypochromasia Moderate; Lymphocytes # (A) 0.8 k/uL (1.0-4.8); Lymphocytes % (A) 13 %; MCV 100.3 fL (80.0-100.0); Macrocytosis Slight; Mean Platelet Volume 9.3; Monocytes # (A) 0.3 k/uL (0-1.0); Monocytes % (A) 5 %; Neutrophils # (A) 4.2 k/uL (1.3-7.7); Neutrophils % (A) 75 %; Platelet Count 256 k/uL (150-450); RBC 2.79 m/uL (3.80-5.40); WBC 5.6 k/uL (3.8-10.6)
[2018-11-16 09:19] LABS: Albumin 2.6 g/dL (3.5-5.0); Calcium 7.2 mg/dL (8.4-10.2); Potassium 4.3 mmol/L (3.5-5.1); Total Bilirubin 0.3 mg/dL (0.2-1.3); Total Protein 5.3 g/dL (6.3-8.2)
--- NOTE | 2018-11-16 09:40 | P.PN ---
Subjective Patient is seen in follow-up for end-stage renal disease. She is maintained on peritoneal dialysis. She is maintaining net negative fluid balance with 2.5% exchanges. No abdominal pain. Edema is improving. Currently on intraperitoneal gentamicin. Patient received intraperitoneal vancomycin on November 09 and November 15. No chest pain or shortness of breath. No active complaints at this time. Vital signs are stable. General: The patient appeared well nourished and normally developed. HEENT: Head exam is unremarkable. Neck is without jugular venous distension. LUNGS: Lungs are clear to auscultation and percussion. Breath sounds decreased. HEART: Rate and Rhythm are regular. First and second heart sounds normal. No murmurs, rubs or gallops. ABDOMEN: Abdominal exam reveals normal bowel sounds. Non-tender and non- distended. EXTREMITITES: 1+ edema. Right BKA noted. Objective - Vital Signs Vital signs: Vital Signs Temp 97.1 F L 11/16/18 06:25 Pulse 66 11/16/18 06:25 Resp 16 11/16/18 06:25 BP 154/69 11/16/18 06:25 Pulse Ox 98 11/16/18 06:25 Intake & Output 11/15/18 11/16/18 11/16/18 18:59 06:59 18:59 Other: # Voids 1 0 # Bowel Movements 1 1 - Labs CBC & Chem 7: 11/16/18 07:58 11/16/18 07:58 Labs: Abnormal Lab Results - Last 24 Hours (Table) 11/15/18 11/15/18 11/15/18 Range/Units 09:37 09:37 11:45 RBC 2.82 L (3.80-5.40) m/uL Hgb 8.6 L (11.4-16.0) gm/dL Hct 27.8 L (34.0-46.0) % MCV (80.0-100.0) fL MCHC 30.8 L (31.0-37.0) g/dL RDW 15.8 H (11.5-15.5) % Lymphocytes # 0.6 L (1.0-4.8) k/uL Carbon Dioxide (22-30) mmol/L BUN 49 H (7-17) mg/dL Creatinine 8.89 H* (0.52-1.04) mg/dL Glucose 164 H (74-99) mg/dL POC Glucose (mg/dL) 139 H (75-99) mg/dL Calcium 7.2 L (8.4-10.2) mg/dL Total Protein 5.3 L (6.3-8.2) g/dL Albumin 2.6 L (3.5-5.0) g/dL 11/15/18 11/15/18 11/16/18 Range/Units 17:25 20:47 07:06 RBC (3.80-5.40) m/uL Hgb (11.4-16.0) gm/dL Hct (34.0-46.0) % MCV (80.0-100.0) fL MCHC (31.0-37.0) g/dL RDW (11.5-15.5) % Lymphocytes # (1.0-4.8) k/uL Carbon Dioxide (22-30) mmol/L BUN (7-17) mg/dL Creatinine (0.52-1.04) mg/dL Glucose (74-99) mg/dL POC Glucose (mg/dL) 140 H 225 H 237 H (75-99) mg/dL Calcium (8.4-10.2) mg/dL Total Protein (6.3-8.2) g/dL Albumin (3.5-5.0) g/dL 11/16/18 11/16/18 Range/Units 07:58 07:58 RBC 2.79 L (3.80-5.40) m/uL Hgb 8.7 L (11.4-16.0) gm/dL Hct 28.0 L (34.0-46.0) % MCV 100.3 H (80.0-100.0) fL MCHC (31.0-37.0) g/dL RDW 17.0 H (11.5-15.5) % Lymphocytes # 0.8 L (1.0-4.8) k/uL Carbon Dioxide 32 H (22-30) mmol/L BUN 49 H (7-17) mg/dL Creatinine 8.73 H* (0.52-1.04) mg/dL Glucose 214 H (74-99) mg/dL POC Glucose (mg/dL) (75-99) mg/dL Calcium 7.2 L (8.4-10.2) mg/dL Total Protein 5.3 L (6.3-8.2) g/dL Albumin 2.6 L (3.5-5.0) g/dL Assessment and Plan Plan: Assessment: 1. End-stage renal disease maintained on peritoneal dialysis. 2. CAPD related peritonitis. Cell count improved significantly. Culture negative so far. 3. UTI with urine culture positive for E. coli. 4. Anemia of chronic kidney disease. Maintained on Aranesp. 5. Hypertension with chronic kidney disease. 6. Insulin-dependent diabetes mellitus. 7. Chronic kidney disease mineral bone disease maintained on PhosLo. 8. Constipation. Better with lactulose. 9. Hypokalemia secondary to diuresis and PD losses. Better post replacement. Plan: Continue intraperitoneal gentamicin 60 mg daily - started November 12. Status post intraperitoneal vancomycin on November 09 and November 15. Follow-up cultures. Maintain 2 L exchanges with 2.5% dextrose solution every 6 hours. Continue lactulose 15 g 3 times daily as needed for constipation. Plan for rehab upon discharge.
[2018-11-16] MEDS: GENTAMICIN INTRAPERIT SCH (11:38)
[2018-11-16] MEDS: DARBEPOETIN ALFA 40 MCG/0.4 ML SYRINGE SQ SCH (11:38)
[2018-11-16] MEDS: DIALYSIS DEX INTRAPERIT SCH (11:38)
[2018-11-16 11:55] LABS: Glucose,Whole Blood 276 mg/dL (75-99)
--- NOTE | 2018-11-16 14:05 | P.PN ---
Subjective Progress Note Date: 11/16/18 The patient is a 63 yo F with a PMH of ESRD on peritoneal HD, DM, HTN, and HLD presented for abdominal pain, nausea, and vomiting. The patient was initially admitted for sepsis from pnuemonia and subsequently underwent a paracentesis and was diagnosed w/ peritonitis. The patient dialysis catheter was also replaced since it was leaking. The patient was initially placed on Vancomycin and Gentamicin, with infectious disease consulted. Th epatient was subsequently switched to intraperitoneal Gantamicin and Vancomycin. The patient was initially scheduled for discharge to [facility]. It was however then discovered that they do not have a contract with patient's dialysis provider and the discharge was held. The patient is now awaiting training of the staff at [facility] or [facility] so that she may be discharged there on Sunday at the earliest. The patient was seen and examined at the bedside on 11/16/18. The patient was in good spirits and denied any active complaint. She reported no further abdominal pain, fever, or chills. Denied nausea, vomiting, diarrhea, or dysuria. Objective - Vital Signs Vital signs: Vital Signs Temp 98.2 F 11/16/18 11:48 Pulse 98 11/16/18 11:48 Resp 12 11/16/18 11:48 BP 130/78 11/16/18 11:48 Pulse Ox 96 11/16/18 11:48 Intake & Output 11/15/18 11/16/18 11/16/18 18:59 06:59 18:59 Other: # Voids 1 0 0 # Bowel Movements 1 1 - Exam General: Non-toxic, in no acute distress, appears stated age, normal weight HEENT: NC/AT, anicteric sclerae, moist conjunctiva, no lid-lag, PERRLA Cardiovascular: S1/S2 wnl, no murmurs, rubs, or gallops Lungs: Clear to auscultation, normal respiratory effort, no accessory muscle use Abdominal: Soft, non-tender, non-distended, no guarding, rebound, or rigidity, dialysis catheter in place, dressing clean and dry Skin: Warm, dry Extremities: No edema or contractures, R BKA Psychiatric: Alert and oriented to person, place and time, appropriate affect Neuro: CN II-XII grossly intact, Speech intact, Sensation to light touch grossly intact throughout, no focal deficits - Labs CBC & Chem 7: 11/16/18 07:58 11/16/18 07:58 Labs: Abnormal Lab Results - Last 24 Hours (Table) 11/15/18 11/15/18 11/16/18 Range/Units 17:25 20:47 07:06 RBC (3.80-5.40) m/uL Hgb (11.4-16.0) gm/dL Hct (34.0-46.0) % MCV (80.0-100.0) fL RDW (11.5-15.5) % Lymphocytes # (1.0-4.8) k/uL Carbon Dioxide (22-30) mmol/L BUN (7-17) mg/dL Creatinine (0.52-1.04) mg/dL Glucose (74-99) mg/dL POC Glucose (mg/dL) 140 H 225 H 237 H (75-99) mg/dL Calcium (8.4-10.2) mg/dL Total Protein (6.3-8.2) g/dL Albumin (3.5-5.0) g/dL 11/16/18 11/16/18 11/16/18 Range/Units 07:58 07:58 11:41 RBC 2.79 L (3.80-5.40) m/uL Hgb 8.7 L (11.4-16.0) gm/dL Hct 28.0 L (34.0-46.0) % MCV 100.3 H (80.0-100.0) fL RDW 17.0 H (11.5-15.5) % Lymphocytes # 0.8 L (1.0-4.8) k/uL Carbon Dioxide 32 H (22-30) mmol/L BUN 49 H (7-17) mg/dL Creatinine 8.73 H* (0.52-1.04) mg/dL Glucose 214 H (74-99) mg/dL POC Glucose (mg/dL) 276 H (75-99) mg/dL Calcium 7.2 L (8.4-10.2) mg/dL Total Protein 5.3 L (6.3-8.2) g/dL Albumin 2.6 L (3.5-5.0) g/dL Assessment and Plan Plan: Secondary peritonitis due to peritoneal dialysis -C/w intraperitoneal Vancomycin and Gentamicin -ID following ESRD on HD -C/w dialysis -Renal diet -Nephrology recs appreciated Chronic LE wounds -Evaluated by Wound-Clinic -Likely secondary to protein-malnutrition w/ low pre-albumin and albumin -Heel-support and f/u with wound clinic DM w/ hyperglycemia -Increase Levemir to 17 U qhs -Increase Lispro to 4 U TIDAC -C/w MANOJ with blood glucose monitoring Hypothyroidism -C/w hypothyroidism HTN -C/w Losartan and Lopressor
[2018-11-16 16:55] LABS: Glucose,Whole Blood 270 mg/dL (75-99)
[2018-11-16] MEDS: PRAVASTATIN SODIUM 20 MG TAB PO SCH (20:54)
[2018-11-16] MEDS: ASPIRIN 81 MG PO SCH (20:54)
[2018-11-16] MEDS: INSULIN DETEMIR (LEVEMIR) 100 UNIT/ML SYR SQ SCH (20:55)
[2018-11-16 20:57] LABS: Glucose,Whole Blood 177 mg/dL (75-99)
[2018-11-17] MEDS: DIALYSIS (PERIT 2.5%) 2,500 ML 50 G/2,000 ML BAG INTRAPERIT SCH ×3 (00:35→17:38)
[2018-11-17] MEDS: LEVOTHYROXINE 75 MCG TAB PO SCH (05:46)
[2018-11-17 07:14] LABS: Glucose,Whole Blood 179 mg/dL (75-99)
[2018-11-17] MEDS: METOPROLOL TARTRATE 25 MG TAB PO SCH ×2 (08:10→20:15)
[2018-11-17] MEDS: FUROSEMIDE 80 MG TAB PO SCH ×2 (08:10→17:30)
[2018-11-17] MEDS: LOSARTAN 25 MG TAB PO SCH ×2 (08:10→20:15)
[2018-11-17] MEDS: CLOPIDOGREL 75 MG TAB PO SCH (08:10)
[2018-11-17] MEDS: PANTOPRAZOLE 40 MG TABLET PO SCH (08:10)
[2018-11-17] MEDS: INSULIN ASPART (NovoLOG) 100 UNIT/ML VIAL SQ SCH ×7 (08:10→20:21)
[2018-11-17] MEDS: CALCIUM ACETATE 667 MG CAP PO SCH ×3 (08:10→17:30)
[2018-11-17] MEDS: FOLIC ACID-VIT B COMPLEX-VIT C 1 CAP PO SCH (08:10)
[2018-11-17] MEDS: PREGABALIN 50 MG CAP PO SCH ×2 (08:13→20:15)
[2018-11-17 08:15] LABS: Anisocytosis Slight; Basophils % (A) 1 %; Eosinophils # (A) 0.3 k/uL (0-0.7); Eosinophils % (A) 4 %; HCT 27.7 % (34.0-46.0); HGB 8.4 gm/dL (11.4-16.0); Hypochromasia Slight; Lymphocytes # (A) 0.9 k/uL (1.0-4.8); Lymphocytes % (A) 14 %; MCH 30.3 pg (25.0-35.0); MCHC 30.3 g/dL (31.0-37.0); MCV 100.1 fL (80.0-100.0); Macrocytosis Slight; Mean Platelet Volume 8.8; Monocytes # (A) 0.3 k/uL (0-1.0); Monocytes % (A) 4 %; Neutrophils # (A) 4.7 k/uL (1.3-7.7); Neutrophils % (A) 75 %; Platelet Count 268 k/uL (150-450); RBC 2.76 m/uL (3.80-5.40); RDW 16.8 % (11.5-15.5); WBC 6.2 k/uL (3.8-10.6)
[2018-11-17 08:32] LABS: Albumin 2.5 g/dL (3.5-5.0); Calcium 7.2 mg/dL (8.4-10.2); Magnesium 1.6 mg/dL (1.6-2.3); Potassium 4.4 mmol/L (3.5-5.1); Total Bilirubin 0.2 mg/dL (0.2-1.3); Total Protein 5.1 g/dL (6.3-8.2)
--- NOTE | 2018-11-17 10:28 | P.PN ---
Subjective Patient is seen in follow-up for end-stage renal disease. She is maintained on peritoneal dialysis. She is maintaining net negative fluid balance with 2.5% exchanges. No abdominal pain. Edema has improved. Currently on intraperitoneal gentamicin. Patient received intraperitoneal vancomycin on November 09 and November 15. No chest pain or shortness of breath. No active complaints at this time. Potentially discharged to rehab on Sunday. Vital signs are stable. General: The patient appeared well nourished and normally developed. HEENT: Head exam is unremarkable. Neck is without jugular venous distension. LUNGS: Lungs are clear to auscultation and percussion. Breath sounds decreased. HEART: Rate and Rhythm are regular. First and second heart sounds normal. No murmurs, rubs or gallops. ABDOMEN: Abdominal exam reveals normal bowel sounds. Non-tender and non- distended. EXTREMITITES: 1+ edema. Right BKA noted. Objective - Vital Signs Vital signs: Vital Signs Temp 97.7 F 11/17/18 05:40 Pulse 66 11/17/18 05:40 Resp 20 11/17/18 05:40 BP 134/61 11/17/18 05:40 Pulse Ox 97 11/17/18 05:40 Intake & Output 11/16/18 11/17/18 11/17/18 18:59 06:59 18:59 Other: Voiding Method Diaper Incontinent # Voids 0 1 # Bowel Movements 1 - Labs CBC & Chem 7: 11/17/18 07:37 11/17/18 07:37 Labs: Abnormal Lab Results - Last 24 Hours (Table) 11/16/18 11/16/18 11/16/18 Range/Units 11:41 16:50 20:55 RBC (3.80-5.40) m/uL Hgb (11.4-16.0) gm/dL Hct (34.0-46.0) % MCV (80.0-100.0) fL MCHC (31.0-37.0) g/dL RDW (11.5-15.5) % Lymphocytes # (1.0-4.8) k/uL BUN (7-17) mg/dL Creatinine (0.52-1.04) mg/dL Glucose (74-99) mg/dL POC Glucose (mg/dL) 276 H 270 H 177 H (75-99) mg/dL Calcium (8.4-10.2) mg/dL Total Protein (6.3-8.2) g/dL Albumin (3.5-5.0) g/dL 11/17/18 11/17/18 11/17/18 Range/Units 07:11 07:37 07:37 RBC 2.76 L (3.80-5.40) m/uL Hgb 8.4 L (11.4-16.0) gm/dL Hct 27.7 L (34.0-46.0) % MCV 100.1 H (80.0-100.0) fL MCHC 30.3 L (31.0-37.0) g/dL RDW 16.8 H (11.5-15.5) % Lymphocytes # 0.9 L (1.0-4.8) k/uL BUN 53 H (7-17) mg/dL Creatinine 9.03 H* (0.52-1.04) mg/dL Glucose 175 H (74-99) mg/dL POC Glucose (mg/dL) 179 H (75-99) mg/dL Calcium 7.2 L (8.4-10.2) mg/dL Total Protein 5.1 L (6.3-8.2) g/dL Albumin 2.5 L (3.5-5.0) g/dL Assessment and Plan Plan: Assessment: 1. End-stage renal disease maintained on peritoneal dialysis. 2. CAPD related peritonitis. Cell count improved significantly. Culture negative so far. 3. UTI with urine culture positive for E. coli. 4. Anemia of chronic kidney disease. Maintained on Aranesp. 5. Hypertension with chronic kidney disease. Controlled. 6. Insulin-dependent diabetes mellitus. 7. Chronic kidney disease mineral bone disease maintained on PhosLo. 8. Constipation. Better with lactulose. 9. Hypokalemia secondary to diuresis and PD losses. Better post replacement. Plan: Continue intraperitoneal gentamicin 60 mg daily - started November 12. Status post intraperitoneal vancomycin on November 09 and November 15. Follow-up cultures. Maintain 2 L exchanges with 2.5% dextrose solution every 6 hours. Continue lactulose 15 g 3 times daily as needed for constipation. Plan for rehab upon discharge.
[2018-11-17] MEDS: GENTAMICIN INTRAPERIT SCH (11:34)
[2018-11-17] MEDS: DIALYSIS DEX INTRAPERIT SCH (11:34)
[2018-11-17 12:28] LABS: Glucose,Whole Blood 222 mg/dL (75-99)
--- NOTE | 2018-11-17 13:12 | P.PN ---
Subjective Progress Note Date: 11/17/18 The patient is a 63 yo F with a PMH of ESRD on peritoneal HD, DM, HTN, and HLD presented for abdominal pain, nausea, and vomiting. The patient was initially admitted for sepsis from pnuemonia and subsequently underwent a paracentesis and was diagnosed w/ peritonitis. The patient dialysis catheter was also replaced since it was leaking. The patient was initially placed on Vancomycin and Gentamicin, with infectious disease consulted. The patient was subsequently switched to intraperitoneal Gantamicin and Vancomycin. The patient was initially scheduled for discharge to [facility]. It was however then discovered that they do not have a contract with patient's dialysis provider and the discharge was held. The patient is now awaiting training of the staff at [facility] or [facility] so that she may be discharged there on Sunday at the earliest. The patient was seen and examined at the bedside on 11/17/18. The patient denied any active complaint. She reported no further abdominal pain, fever, or chills. Denied nausea, vomiting, diarrhea, or dysuria. Denied chest pain, or SOB. Objective - Vital Signs Vital signs: Vital Signs Temp 97.7 F 11/17/18 05:40 Pulse 66 11/17/18 05:40 Resp 20 11/17/18 05:40 BP 134/61 11/17/18 05:40 Pulse Ox 97 11/17/18 05:40 Intake & Output 11/16/18 11/17/18 11/17/18 18:59 06:59 18:59 Other: Voiding Method Diaper Incontinent # Voids 0 1 # Bowel Movements 1 - Exam General: Non-toxic, in no acute distress, appears stated age, obese HEENT: NC/AT, anicteric sclerae, moist conjunctiva, no lid-lag, PERRLA Cardiovascular: S1/S2 wnl, no murmurs, rubs, or gallops Lungs: Clear to auscultation, normal respiratory effort, no accessory muscle use Abdominal: Soft, non-tender, non-distended, no guarding, rebound, or rigidity, dialysis catheter in place, dressing clean and dry Skin: Warm, dry Extremities: No edema or contractures, R BKA Psychiatric: Alert and oriented to person, place and time, appropriate affect Neuro: CN II-XII grossly intact, Speech intact, Sensation to light touch grossly intact throughout, no focal deficits - Labs CBC & Chem 7: 11/17/18 07:37 11/17/18 07:37 Labs: Abnormal Lab Results - Last 24 Hours (Table) 11/16/18 11/16/18 11/17/18 Range/Units 16:50 20:55 07:11 RBC (3.80-5.40) m/uL Hgb (11.4-16.0) gm/dL Hct (34.0-46.0) % MCV (80.0-100.0) fL MCHC (31.0-37.0) g/dL RDW (11.5-15.5) % Lymphocytes # (1.0-4.8) k/uL BUN (7-17) mg/dL Creatinine (0.52-1.04) mg/dL Glucose (74-99) mg/dL POC Glucose (mg/dL) 270 H 177 H 179 H (75-99) mg/dL Calcium (8.4-10.2) mg/dL Total Protein (6.3-8.2) g/dL Albumin (3.5-5.0) g/dL 11/17/18 11/17/18 11/17/18 Range/Units 07:37 07:37 12:26 RBC 2.76 L (3.80-5.40) m/uL Hgb 8.4 L (11.4-16.0) gm/dL Hct 27.7 L (34.0-46.0) % MCV 100.1 H (80.0-100.0) fL MCHC 30.3 L (31.0-37.0) g/dL RDW 16.8 H (11.5-15.5) % Lymphocytes # 0.9 L (1.0-4.8) k/uL BUN 53 H (7-17) mg/dL Creatinine 9.03 H* (0.52-1.04) mg/dL Glucose 175 H (74-99) mg/dL POC Glucose (mg/dL) 222 H (75-99) mg/dL Calcium 7.2 L (8.4-10.2) mg/dL Total Protein 5.1 L (6.3-8.2) g/dL Albumin 2.5 L (3.5-5.0) g/dL Assessment and Plan Plan: Secondary peritonitis due to peritoneal dialysis -C/w intraperitoneal Vancomycin and Gentamicin -ID following ESRD on HD -C/w dialysis -Renal diet -Nephrology recs appreciated Chronic LE wounds -Evaluated by Wound-Clinic -Likely secondary to protein-malnutrition w/ low pre-albumin and albumin -Heel-support and f/u with wound clinic DM w/ hyperglycemia -C/w Levemir to 17 U qhs -Increase Lispro to 6 U TIDAC -C/w MANOJ with blood glucose monitoring Hypothyroidism -C/w Synthroid HTN -C/w Losartan and Lopressor DVT prophylaxis -Heparin Discussed with: Patient Anticipated discharge date: 11/19/[address]: Rehab A total of 30 minutes was spent on the care of this complex patient more than 50% of the time was spent in counseling and care coordination.
[2018-11-17 17:06] LABS: Glucose,Whole Blood 175 mg/dL (75-99)
[2018-11-17] MEDS: HEPARIN SODIUM,PORCINE 5,000 UNIT/ML 1 ML VIAL SQ SCH (17:31)
[2018-11-17 20:11] LABS: Glucose,Whole Blood 201 mg/dL (75-99)
[2018-11-17] MEDS: ASPIRIN 81 MG PO SCH (20:15)
[2018-11-17] MEDS: PRAVASTATIN SODIUM 20 MG TAB PO SCH (20:15)
[2018-11-17] MEDS: INSULIN DETEMIR (LEVEMIR) 100 UNIT/ML SYR SQ SCH (20:21)
[2018-11-18] MEDS: DIALYSIS (PERIT 2.5%) 2,500 ML 50 G/2,000 ML BAG INTRAPERIT SCH ×3 (00:13→18:02)
[2018-11-18] MEDS: HEPARIN SODIUM,PORCINE 5,000 UNIT/ML 1 ML VIAL SQ SCH ×3 (00:54→15:04)
[2018-11-18] MEDS: LEVOTHYROXINE 75 MCG TAB PO SCH (05:32)
[2018-11-18 06:57] LABS: Glucose,Whole Blood 252 mg/dL (75-99)
[2018-11-18] MEDS: METOPROLOL TARTRATE 25 MG TAB PO SCH ×2 (07:46→20:44)
[2018-11-18] MEDS: PANTOPRAZOLE 40 MG TABLET PO SCH (07:46)
[2018-11-18] MEDS: LOSARTAN 25 MG TAB PO SCH ×2 (07:46→20:45)
[2018-11-18] MEDS: PREGABALIN 50 MG CAP PO SCH ×2 (07:47→20:44)
[2018-11-18] MEDS: INSULIN ASPART (NovoLOG) 100 UNIT/ML VIAL SQ SCH ×7 (07:47→21:08)
[2018-11-18] MEDS: FUROSEMIDE 80 MG TAB PO SCH ×2 (07:47→15:04)
[2018-11-18] MEDS: CALCIUM ACETATE 667 MG CAP PO SCH ×3 (07:47→18:02)
[2018-11-18] MEDS: CLOPIDOGREL 75 MG TAB PO SCH (07:47)
[2018-11-18] MEDS: FOLIC ACID-VIT B COMPLEX-VIT C 1 CAP PO SCH (07:48)
[2018-11-18] MEDS: ACETAMINOPHEN TAB 325 MG TAB PO PRN ×2 (08:02→22:04)
--- NOTE | 2018-11-18 09:23 | P.PN ---
Subjective Patient is seen in follow-up for end-stage renal disease. She is maintained on peritoneal dialysis. She is maintaining net negative fluid balance with 2.5% exchanges. No abdominal pain. Edema has improved. Currently on intraperitoneal gentamicin. Patient received intraperitoneal vancomycin on November 09 and November 15. No chest pain or shortness of breath. No active complaints at this time. Potentially discharged to rehab on Sunday. Vital signs are stable. General: The patient appeared well nourished and normally developed. HEENT: Head exam is unremarkable. Neck is without jugular venous distension. LUNGS: Lungs are clear to auscultation and percussion. Breath sounds decreased. HEART: Rate and Rhythm are regular. First and second heart sounds normal. No murmurs, rubs or gallops. ABDOMEN: Abdominal exam reveals normal bowel sounds. Non-tender and non- distended. EXTREMITITES: 1+ edema. Right BKA noted. Objective - Vital Signs Vital signs: Vital Signs Temp 97.4 F L 11/18/18 05:41 Pulse 66 11/18/18 05:41 Resp 16 11/18/18 05:41 BP 125/57 11/18/18 05:41 Pulse Ox 96 11/18/18 05:41 Intake & Output 11/17/18 11/18/18 11/18/18 18:59 06:59 18:59 Output Total 0 Balance 0 Output: Urine 0 Other: Voiding Method Diaper Incontinent # Voids 0 1 # Bowel Movements 1 - Labs CBC & Chem 7: 11/17/18 07:37 11/17/18 07:37 Labs: Abnormal Lab Results - Last 24 Hours (Table) 11/17/18 11/17/18 11/17/18 Range/Units 12:26 17:02 20:09 POC Glucose (mg/dL) 222 H 175 H 201 H (75-99) mg/dL 11/18/18 Range/Units 06:55 POC Glucose (mg/dL) 252 H (75-99) mg/dL Assessment and Plan Plan: Assessment: 1. End-stage renal disease maintained on peritoneal dialysis. 2. CAPD related peritonitis. Cell count improved significantly. Culture negative so far. 3. UTI with urine culture positive for E. coli. 4. Anemia of chronic kidney disease. Maintained on Aranesp. 5. Hypertension with chronic kidney disease. Controlled. 6. Insulin-dependent diabetes mellitus. 7. Chronic kidney disease mineral bone disease maintained on PhosLo. 8. Constipation. Better with lactulose. 9. Hypokalemia secondary to diuresis and PD losses. Better post replacement. Plan: Continue intraperitoneal gentamicin 60 mg daily - started November 12. Status post intraperitoneal vancomycin on November 09 and November 15. Follow-up cultures. Maintain 2 L exchanges with 2.5% dextrose solution every 6 hours. Continue lactulose 15 g 3 times daily as needed for constipation. Plan for rehab upon discharge. She will be maintained on intraperitoneal antibiotics for a total course of 3 weeks.
[2018-11-18 09:53] LABS: Albumin 2.6 g/dL (3.5-5.0); Calcium 7.3 mg/dL (8.4-10.2); Potassium 4.2 mmol/L (3.5-5.1); Total Bilirubin 0.2 mg/dL (0.2-1.3); Total Protein 5.2 g/dL (6.3-8.2)
[2018-11-18 10:47] LABS: Anisocytosis Slight; Basophils % (A) 0 %; Eosinophils # (A) 0.3 k/uL (0-0.7); Eosinophils % (A) 5 %; HCT 28.5 % (34.0-46.0); HGB 8.5 gm/dL (11.4-16.0); Hypochromasia Moderate; Lymphocytes # (A) 0.8 k/uL (1.0-4.8); Lymphocytes % (A) 14 %; MCH 30.3 pg (25.0-35.0); MCHC 29.8 g/dL (31.0-37.0); MCV 101.6 fL (80.0-100.0); Macrocytosis Slight; Mean Platelet Volume 8.6; Monocytes # (A) 0.3 k/uL (0-1.0); Monocytes % (A) 5 %; Neutrophils # (A) 4.4 k/uL (1.3-7.7); Neutrophils % (A) 75 %; Platelet Count 260 k/uL (150-450); RDW 16.6 % (11.5-15.5); WBC 5.9 k/uL (3.8-10.6)
[2018-11-18] MEDS: GENTAMICIN INTRAPERIT SCH (12:07)
[2018-11-18] MEDS: DIALYSIS DEX INTRAPERIT SCH (12:07)
[2018-11-18 12:40] LABS: Glucose,Whole Blood 223 mg/dL (75-99)
[2018-11-18 17:18] LABS: Glucose,Whole Blood 211 mg/dL (75-99)
[2018-11-18] MEDS: ASPIRIN 81 MG PO SCH (20:44)
[2018-11-18] MEDS: PRAVASTATIN SODIUM 20 MG TAB PO SCH (20:44)
[2018-11-18 20:55] LABS: Glucose,Whole Blood 260 mg/dL (75-99)
[2018-11-18] MEDS ORDERED: INSULIN DETEMIR (LEVEMIR) 100 UNIT/ML SYR SQ SCH (21:00)
--- NOTE | 2018-11-18 21:42 | P.PN ---
Subjective Progress Note Date: 11/18/18 (delayed charting patient seen at 1315) Principal diagnosis: abdominal pain Patient is a 63-year-old -[place] female with a past medical history of end-stage renal disease on peritoneal meal dialysis, diabetes, GERD, hypertension, and dyslipidemia who presented to the emergency department with complaints of lower abdominal pain, nausea, and vomiting. On arrival to the ER she underwent an extensive evaluation. Her initial vital signs were within normal limits. Several hours later she spiked a fever of 103. Initial laboratory analysis was consistent with her chronic anemia and renal disease. CT abdomen and pelvis showed mild nonspecific multiple retroperitoneal lymph nodes, pneumoperitoneum, and patchy atelectasis in the lung bases. Chest x-ray showed increased lung markings consistent with pulmonary congestion. Shoulder x-ray showed negative right shoulder exam. Initially she was started on Rocephin and Zithromax for possible pulmonary infiltrates. She was continued on her peritoneal dialysis, and she was continued on sliding scale insulin. She wa s seen by nephrology who is concerned with peritonitis. They ordered a cell count and Gram stain on the peritoneal fluid as well as 1 dose of intraperitoneal vancomycin. Surgery was consulted as there was leakage around her peritoneal dialysis catheter and they replaced the extension under aseptic conditions. This began working appropriately. Peritoneal fluid showed 35,000 white blood cells. Consistent with peritonitis. Infectious disease was consulted. She was continued on IV vancomycin and gentamicin. She was having some dark-colored malodorous urine. Urine culture came back positive for E. coli. She also was found to have an elevated gent level. She will be switched to intraperitoneal antibiotics with vanco and gent. She had been taken off her insulin pump at the start of hospital stay and BS elevating due to peritoneal dialysilate. She continued to struggle with hyperglycemia requiring frequent insulin adjustments. Plan is for discharge to SNF once nursing educated on stephanie toneal dialysis Patient seen and examined at bedside. Feeling much better than my last evaluation. No more ringing in her ears. No chest pain, shortness of breath, belly pain is much improved. No issues with diarrhea. Objective - Vital Signs Vital signs: Vital Signs Temp 97.4 F L 11/18/18 05:41 Pulse 68 11/18/18 12:00 Resp 16 11/18/18 14:37 BP 143/66 11/18/18 12:00 Pulse Ox 97 11/18/18 12:00 Intake & Output 11/18/18 11/18/18 11/19/18 06:59 18:59 06:59 Output Total 0 0 Balance 0 0 Weight 112 kg Output: Urine 0 0 Other: Voiding Method Diaper Bedpan Incontinent # Voids 1 1 0 # Bowel Movements 1 0 0 - Exam General: Nontoxic, no distress, appears at stated age Derm: warm, dry Head: atraumatic, normocephalic, symmetric Eyes: EOMI, no lid lag, anicteric sclera Mouth: no lip lesion, mucus membranes moist Cardiovascular: S1S2 reg, no murmur, + radial pulses bilateral Lungs: decreased bs bilateral, no rhonchi, no rales , no accessory muscle use Abdominal: soft, nontender to palpation diffusely, no guarding, no appreciable organomegaly Ext: no gross muscle atrophy, no edema, no contractures, R AKA Neuro: CN II-XI grossly intact, no focal neuro deficits Psych: Alert, oriented, appropriate affect - Labs CBC & Chem 7: 11/18/18 09:17 11/18/18 09:17 Labs: Abnormal Lab Results - Last 24 Hours (Table) 11/18/18 11/18/18 11/18/18 Range/Units 06:55 09:17 09:17 RBC 2.80 L (3.80-5.40) m/uL Hgb 8.5 L (11.4-16.0) gm/dL Hct 28.5 L (34.0-46.0) % MCV 101.6 H (80.0-100.0) fL MCHC 29.8 L (31.0-37.0) g/dL RDW 16.6 H (11.5-15.5) % Lymphocytes # 0.8 L (1.0-4.8) k/uL BUN 56 H (7-17) mg/dL Creatinine 9.48 H* (0.52-1.04) mg/dL Glucose 276 H (74-99) mg/dL POC Glucose (mg/dL) 252 H (75-99) mg/dL Calcium 7.3 L (8.4-10.2) mg/dL Total Protein 5.2 L (6.3-8.2) g/dL Albumin 2.6 L (3.5-5.0) g/dL 11/18/18 11/18/18 11/18/18 Range/Units 12:29 16:59 20:53 RBC (3.80-5.40) m/uL Hgb (11.4-16.0) gm/dL Hct (34.0-46.0) % MCV (80.0-100.0) fL MCHC (31.0-37.0) g/dL RDW (11.5-15.5) % Lymphocytes # (1.0-4.8) k/uL BUN (7-17) mg/dL Creatinine (0.52-1.04) mg/dL Glucose (74-99) mg/dL POC Glucose (mg/dL) 223 H 211 H 260 H (75-99) mg/dL Calcium (8.4-10.2) mg/dL Total Protein (6.3-8.2) g/dL Albumin (3.5-5.0) g/dL Assessment and Plan Assessment: Secondary peritonitis due to peritoneal dialysis -Discussed with nephrology-continue Vanco every 5 days and gentamicin once daily intraperitoneal. - Nephrology Valdemar - ID and nephro following - cultures negative for infection ESRD on peritoneal dialysis - PD cath working appropriatly, will continue with PD - nephro recs appreciated DM 2 with hyperglycemia - increase levemir, fixed dose novolog - SSI - follow BS - will need Appt with Dr. Whaley soon after discharge. - plan will be to resume insulin pump at discharge, need to check if can be arranged with SNF - health educator recs Hypothyroidism - synthroid Secondary hyperparathyrodism - phoslo HTN - controlled - lopressor, cozaar, lasix Pulm infiltrates - likely atelectasis Gentamycin toxicity DVT prophylaxis: SCDs Discussed with: Patient, nursing, Dr Chu Anticipated discharge: 1-[address]: SNF A total of 35 minutes was spent on the care of this complex patient more than 50% of the time was spent in counseling and care coordination.
[2018-11-19] MEDS: HEPARIN SODIUM,PORCINE 5,000 UNIT/ML 1 ML VIAL SQ SCH ×4 (00:10→23:09)
[2018-11-19] MEDS: DIALYSIS (PERIT 2.5%) 2,500 ML 50 G/2,000 ML BAG INTRAPERIT SCH ×3 (00:10→17:36)
[2018-11-19] MEDS: LEVOTHYROXINE 75 MCG TAB PO SCH (05:48)
[2018-11-19 07:10] LABS: Glucose,Whole Blood 263 mg/dL (75-99)
[2018-11-19] MEDS: CLOPIDOGREL 75 MG TAB PO SCH (08:00)
[2018-11-19] MEDS: FOLIC ACID-VIT B COMPLEX-VIT C 1 CAP PO SCH (08:00)
[2018-11-19] MEDS: CALCIUM ACETATE 667 MG CAP PO SCH ×3 (08:00→17:35)
[2018-11-19] MEDS: PANTOPRAZOLE 40 MG TABLET PO SCH (08:00)
[2018-11-19] MEDS: INSULIN ASPART (NovoLOG) 100 UNIT/ML VIAL SQ SCH ×8 (08:00→22:00)
[2018-11-19] MEDS: PREGABALIN 50 MG CAP PO SCH ×2 (08:01→20:48)
[2018-11-19] MEDS: METOPROLOL TARTRATE 25 MG TAB PO SCH ×2 (08:01→20:48)
[2018-11-19] MEDS: LOSARTAN 25 MG TAB PO SCH ×2 (08:01→20:48)
[2018-11-19] MEDS: FUROSEMIDE 80 MG TAB PO SCH ×2 (08:01→14:54)
[2018-11-19] MEDS: GENTAMICIN INTRAPERIT SCH (11:09)
[2018-11-19] MEDS: DIALYSIS DEX INTRAPERIT SCH (11:09)
[2018-11-19 11:29] LABS: Albumin 3.1 g/dL (3.5-5.0); Calcium 7.6 mg/dL (8.4-10.2); Potassium 4.4 mmol/L (3.5-5.1); Total Bilirubin 0.2 mg/dL (0.2-1.3); Total Protein 6.2 g/dL (6.3-8.2)
[2018-11-19 12:14] LABS: Anisocytosis Slight; Basophils % (A) 1 %; Eosinophils # (A) 0.3 k/uL (0-0.7); Eosinophils % (A) 5 %; HCT 29.4 % (34.0-46.0); HGB 8.9 gm/dL (11.4-16.0); Hypochromasia Slight; Lymphocytes # (A) 0.7 k/uL (1.0-4.8); Lymphocytes % (A) 11 %; MCH 30.8 pg (25.0-35.0); MCHC 30.3 g/dL (31.0-37.0); MCV 101.6 fL (80.0-100.0); Macrocytosis Moderate; Monocytes # (A) 0.3 k/uL (0-1.0); Monocytes % (A) 5 %; Neutrophils # (A) 4.8 k/uL (1.3-7.7); Neutrophils % (A) 77 %; Platelet Count 283 k/uL (150-450); RDW 16.8 % (11.5-15.5); WBC 6.2 k/uL (3.8-10.6)
--- NOTE | 2018-11-19 12:28 | P.PN ---
Subjective Patient is seen in follow-up for end-stage renal disease. She is maintained on peritoneal dialysis. She is maintaining net negative fluid balance with 2.5% exchanges. No abdominal pain. Edema has improved. Currently on intraperitoneal gentamicin. Patient received intraperitoneal vancomycin on November 09 and November 15. No chest pain or shortness of breath. No active complaints at this time. Potentially discharged to rehab tomorrow. Vital signs are stable. General: The patient appeared well nourished and normally developed. HEENT: Head exam is unremarkable. Neck is without jugular venous distension. LUNGS: Lungs are clear to auscultation and percussion. Breath sounds decreased. HEART: Rate and Rhythm are regular. First and second heart sounds normal. No murmurs, rubs or gallops. ABDOMEN: Abdominal exam reveals normal bowel sounds. Non-tender and non- distended. EXTREMITITES: 1+ edema. Right BKA noted. Objective - Vital Signs Vital signs: Vital Signs Temp 97.4 F L 11/19/18 11:09 Pulse 99 11/19/18 11:09 Resp 18 11/19/18 11:09 BP 145/64 11/19/18 11:09 Pulse Ox 98 11/19/18 11:09 Intake & Output 11/18/18 11/19/18 11/19/18 18:59 06:59 18:59 Intake Total 120 Output Total 0 Balance 120 Weight 112 kg Intake: Oral 120 Output: Urine 0 Other: Voiding Method Bedpan Bedpan Bedpan # Voids 1 0 1 # Bowel Movements 0 1 1 - Labs CBC & Chem 7: 11/19/18 10:47 11/19/18 10:47 Labs: Abnormal Lab Results - Last 24 Hours (Table) 11/18/18 11/18/18 11/18/18 Range/Units 12:29 16:59 20:53 RBC (3.80-5.40) m/uL Hgb (11.4-16.0) gm/dL Hct (34.0-46.0) % MCV (80.0-100.0) fL MCHC (31.0-37.0) g/dL RDW (11.5-15.5) % Lymphocytes # (1.0-4.8) k/uL Carbon Dioxide (22-30) mmol/L BUN (7-17) mg/dL Creatinine (0.52-1.04) mg/dL Glucose (74-99) mg/dL POC Glucose (mg/dL) 223 H 211 H 260 H (75-99) mg/dL Calcium (8.4-10.2) mg/dL AST (14-36) U/L Total Protein (6.3-8.2) g/dL Albumin (3.5-5.0) g/dL 11/19/18 11/19/18 11/19/18 Range/Units 07:05 10:47 10:47 RBC 2.90 L (3.80-5.40) m/uL Hgb 8.9 L (11.4-16.0) gm/dL Hct 29.4 L (34.0-46.0) % MCV 101.6 H (80.0-100.0) fL MCHC 30.3 L (31.0-37.0) g/dL RDW 16.8 H (11.5-15.5) % Lymphocytes # 0.7 L (1.0-4.8) k/uL Carbon Dioxide 32 H (22-30) mmol/L BUN 58 H (7-17) mg/dL Creatinine 10.51 H* (0.52-1.04) mg/dL Glucose 182 H (74-99) mg/dL POC Glucose (mg/dL) 263 H (75-99) mg/dL Calcium 7.6 L (8.4-10.2) mg/dL AST 39 H (14-36) U/L Total Protein 6.2 L (6.3-8.2) g/dL Albumin 3.1 L (3.5-5.0) g/dL Assessment and Plan Plan: Assessment: 1. End-stage renal disease maintained on peritoneal dialysis. 2. CAPD related peritonitis. Cell count improved significantly. Culture negative so far. 3. UTI with urine culture positive for E. coli. 4. Anemia of chronic kidney disease. Maintained on Aranesp. 5. Hypertension with chronic kidney disease. Controlled. 6. Insulin-dependent diabetes mellitus. 7. Chronic kidney disease mineral bone disease maintained on PhosLo. 8. Constipation. Better with lactulose. 9. Hypokalemia secondary to diuresis and PD losses. Better post replacement. Plan: Continue intraperitoneal gentamicin 60 mg daily - started Leah 16. Status post intraperitoneal vancomycin on November 09 and November 15. Follow-up cultures. Maintain 2 L exchanges with 2.5% dextrose solution every 6 hours. Continue lactulose 15 g 3 times daily as needed for constipation. Plan for rehab upon discharge. She will be maintained on intraperitoneal antibiotics for a total course of 3 weeks.
[2018-11-19 12:40] LABS: Glucose,Whole Blood 178 mg/dL (75-99)
--- NOTE | 2018-11-19 14:22 | P.PN ---
Subjective Progress Note Date: 11/19/18 Principal diagnosis: abdominal pain Patient is a 63-year-old -[place] female with a past medical history of end-stage renal disease on peritoneal meal dialysis, diabetes, GERD, hypertension, and dyslipidemia who presented to the emergency department with complaints of lower abdominal pain, nausea, and vomiting. On arrival to the ER she underwent an extensive evaluation. Her initial vital signs were within normal limits. Several hours later she spiked a fever of 103. Initial laboratory analysis was consistent with her chronic anemia and renal disease. CT abdomen and pelvis showed mild nonspecific multiple retroperitoneal lymph nodes, pneumoperitoneum, and patchy atelectasis in the lung bases. Chest x-ray showed increased lung markings consistent with pulmonary congestion. Shoulder x-ray showed negative right shoulder exam. Initially she was started on R ocephin and Zithromax for possible pulmonary infiltrates. She was continued on her peritoneal dialysis, and she was continued on sliding scale insulin. She was seen by nephrology who is concerned with peritonitis. They ordered a cell count and Gram stain on the peritoneal fluid as well as 1 dose of intraperitoneal vancomycin. Surgery was consulted as there was leakage around her peritoneal dialysis catheter and they replaced the extension under aseptic conditions. This began working appropriately. Peritoneal fluid showed 35,000 white blood cells. Consistent with peritonitis. Infectious disease was consulted. She was continued on IV vancomycin and gentamicin. She was having some dark-colored malodorous urine. Urine culture came back positive for E. coli. She also was found to have an elevated gent level. She will be switched to intraperitoneal antibiotics with vanco and gent. She had been taken off her insulin pump at the start of hospital stay and BS elevating due to peritoneal dialysilate. She continued to struggle with hyperglycemia requiring frequent insulin adjustments. Plan is for discharge to SNF once nursing educated on peritoneal dialysis Patient seen and examined at bedside. Doing well, no chest pain, SOB, or nausea, wants to go back on insulin pump. Objective - Vital Signs Vital signs: Vital Signs Temp 97.4 F L 11/19/18 11:09 Pulse 99 11/19/18 11:09 Resp 18 11/19/18 11:09 BP 145/64 11/19/18 11:09 Pulse Ox 98 11/19/18 11:09 Intake & Output 11/18/18 11/19/18 11/19/18 18:59 06:59 18:59 Intake Total 120 Output Total 0 Balance 120 Weight 112 kg Intake: Oral 120 Output: Urine 0 Other: Voiding Method Bedpan Bedpan Bedpan # Voids 1 0 1 # Bowel Movements 0 1 1 - Exam General: Nontoxic, no distress, appears at stated age Derm: warm, dry Head: atraumatic, normocephalic, symmetric Eyes: EOMI, no lid lag, anicteric sclera Mouth: no lip lesion, mucus membranes moist Cardiovascular: S1S2 reg, no murmur, + radial pulses bilateral Lungs: CTA bilateral, no rhonchi, no rales , no accessory muscle use Abdominal: soft, nontender to palpation diffusely, no guarding, no appreciable organomegaly Ext: no gross muscle atrophy, no edema, no contractures, R AKA Neuro: CN II-XI grossly intact, no focal neuro deficits Psych: Alert, oriented, appropriate affect - Labs CBC & Chem 7: 11/19/18 10:47 11/19/18 10:47 Labs: Abnormal Lab Results - Last 24 Hours (Table) 11/18/18 11/18/18 11/19/18 Range/Units 16:59 20:53 07:05 RBC (3.80-5.40) m/uL Hgb (11.4-16.0) gm/dL Hct (34.0-46.0) % MCV (80.0-100.0) fL MCHC (31.0-37.0) g/dL RDW (11.5-15.5) % Lymphocytes # (1.0-4.8) k/uL Carbon Dioxide (22-30) mmol/L BUN (7-17) mg/dL Creatinine (0.52-1.04) mg/dL Glucose (74-99) mg/dL POC Glucose (mg/dL) 211 H 260 H 263 H (75-99) mg/dL Calcium (8.4-10.2) mg/dL AST (14-36) U/L Total Protein (6.3-8.2) g/dL Albumin (3.5-5.0) g/dL 11/19/18 11/19/18 11/19/18 Range/Units 10:47 10:47 12:15 RBC 2.90 L (3.80-5.40) m/uL Hgb 8.9 L (11.4-16.0) gm/dL Hct 29.4 L (34.0-46.0) % MCV 101.6 H (80.0-100.0) fL MCHC 30.3 L (31.0-37.0) g/dL RDW 16.8 H (11.5-15.5) % Lymphocytes # 0.7 L (1.0-4.8) k/uL Carbon Dioxide 32 H (22-30) mmol/L BUN 58 H (7-17) mg/dL Creatinine 10.51 H* (0.52-1.04) mg/dL Glucose 182 H (74-99) mg/dL POC Glucose (mg/dL) 178 H (75-99) mg/dL Calcium 7.6 L (8.4-10.2) mg/dL AST 39 H (14-36) U/L Total Protein 6.2 L (6.3-8.2) g/dL Albumin 3.1 L (3.5-5.0) g/dL Assessment and Plan Assessment: Secondary peritonitis due to peritoneal dialysis -Discussed with nephrology-continue Vanco every 5 days and gentamicin once daily intraperitoneal. - Nephrology Valdemar - ID and nephro following - cultures negative for infection ESRD on peritoneal dialysis - PD cath working appropriatly, will continue with PD - nephro recs appreciated DM 2 with hyperglycemia - increase levemir, fixed dose novolog - SSI - follow BS - will need Appt with Dr. Whaley soon after discharge. - plan will be to resume insulin pump at discharge, need to check if can be arranged with SNF - diabetes educator recs E. Coli UTI - treated with gentamycin Anemia of chronic disease- renal failure - at baseline - follow CBC Hypothyroidism - synthroid Chronic L LE wound - Evaluated by Dr. Gan - due to protein calorie malnutrition - Heal support and off loading Secondary hyperparathyrodism - phoslo HTN - controlled - lopressor, cozaar, lasix Pulm infiltrates - likely atelectasis Gentamycin toxicity DVT prophylaxis: SCDs Discussed with: Patient, nursing, Dr Chu Anticipated discharge: 1-[address]: SNF A total of 35 minutes was spent on the care of this complex patient more than 50% of the time was spent in counseling and care coordination.
[2018-11-19 17:55] LABS: Glucose,Whole Blood 168 mg/dL (75-99)
[2018-11-19] MEDS: PRAVASTATIN SODIUM 20 MG TAB PO SCH (20:48)
[2018-11-19] MEDS: ASPIRIN 81 MG PO SCH (20:53)
[2018-11-19] MEDS ORDERED: INSULIN DETEMIR (LEVEMIR) 100 UNIT/ML SYR SQ SCH (21:00)
[2018-11-19 21:34] LABS: Glucose,Whole Blood 262 mg/dL (75-99)
[2018-11-20] MEDS: DIALYSIS (PERIT 2.5%) 2,500 ML 50 G/2,000 ML BAG INTRAPERIT SCH ×2 (00:16→05:49)
[2018-11-20] MEDS: LEVOTHYROXINE 75 MCG TAB PO SCH (06:32)
[2018-11-20 07:37] LABS: Glucose,Whole Blood 264 mg/dL (75-99)
[2018-11-20] MEDS: LOSARTAN 25 MG TAB PO SCH (08:10)
[2018-11-20] MEDS: METOPROLOL TARTRATE 25 MG TAB PO SCH (08:10)
[2018-11-20] MEDS: INSULIN ASPART (NovoLOG) 100 UNIT/ML VIAL SQ SCH ×4 (08:11→12:38)
[2018-11-20] MEDS: HEPARIN SODIUM,PORCINE 5,000 UNIT/ML 1 ML VIAL SQ SCH (08:11)
[2018-11-20] MEDS: PREGABALIN 50 MG CAP PO SCH (08:11)
[2018-11-20] MEDS: CLOPIDOGREL 75 MG TAB PO SCH (08:11)
[2018-11-20] MEDS: FUROSEMIDE 80 MG TAB PO SCH (08:11)
[2018-11-20] MEDS: FOLIC ACID-VIT B COMPLEX-VIT C 1 CAP PO SCH (08:11)
[2018-11-20] MEDS: PANTOPRAZOLE 40 MG TABLET PO SCH (08:11)
[2018-11-20] MEDS: CALCIUM ACETATE 667 MG CAP PO SCH ×2 (08:11→12:36)
--- NOTE | 2018-11-20 09:38 | P.DS ---
Providers Date of admission: 11/09/18 00:00 Expected date of discharge: 11/20/18 Attending physician: Gavin Jenkins MD Consults: 11/08/18 23:43 Consult Physician Stat Consulting Provider: Zoey Archer Consult Reason/Comments: peritoneal diaylsis, Do you want consulting provider notified?: Yes, Notify in am 11/09/18 16:59 Consult Physician Routine Consulting Provider: Piero Strickland Consult Reason/Comments: Leaking/cut peritoneal dialysis catheter; placed this catheter Do you want consulting provider notified?: Yes 11/10/18 09:24 Consult Physician Routine Consulting Provider: Jerome Gan Consult Reason/Comments: Peritonitis Do you want consulting provider notified?: Yes Primary care physician: Ailyn Eaton MD Hospital Course: Discharge Diagnosis: Secondary peritonitis due to peritoneal dialysis End-stage renal disease on peritoneal dialysis Diabetes mellitus with hyperglycemia E. coli urinary tract infection Anemia of chronic renal disease Hypothyroidism Chronic left lower extremity wound Secondary hyperparathyroidism Hypertension Morbid obesity with BMI 35.4 Hospital Course: Patient is a 63-year-old -[place] female with a past medical history of end-stage renal disease on peritoneal meal dialysis, diabetes, GERD, hypertension, and dyslipidemia who presented to the emergency department with complaints of lower abdominal pain, nausea, and vomiting. On arrival to the ER she underwent an extensive evaluation. Her initial vital signs were within normal limits. Several hours later she spiked a fever of 103. Initial laboratory analysis was consistent with her chronic anemia and renal disease. CT abdomen and pelvis showed mild nonspecific multiple retroperitoneal lymph nodes, pneumoperitoneum, and patchy atelectasis in the lung bases. Chest x-ray showed increased lung markings consistent with pulmonary congestion. Shoulder x-ray showed negative right shoulder exam. Initially she was started on Rocephin and Zithromax for possible pulmonary infiltrates. She was continued on her peritoneal dialysis, and she was continued on sliding scale insulin. She was seen by nephrology who is concerned with peritonitis. They ordered a cell count and Gram stain on the peritoneal fluid as well as 1 dose of intraperitoneal vancomycin. Surgery was consulted as there was leakage around her peritoneal dialysis catheter and they replaced the extension under aseptic conditions. This began working appropriately. Peritoneal fluid showed 35,000 white blood cells. Consistent with peritonitis. Infectious disease was consulted. She was continued on IV vancomycin and gentamicin. She was having some dark-colored malodorous urine. Urine culture came back positive for E. co li. She also was found to have an elevated gent level. She will be switched to intraperitoneal antibiotics with vanco and gent. She had been taken off her insulin pump at the start of hospital stay and BS elevating due to peritoneal dialysilate. She continued to struggle with hyperglycemia requiring frequent insulin adjustments. Arrangements have been made for transfer to [facility] for rehab and to complete her course of intraperitoneal antibiotics. Patient seen and examined at bedside.o chest pain, SOB, nausea, or vomiting. Feelig well toay General: non toxic, no distress, appears at stated age Derm: warm, dry Head: atraumatic, normocephalic, symmetric Eyes: EOMI, no lid lag, anicteric sclera Mouth: no lip lesion, mucus membranes moist Cardiovascular: S1S2 reg, no murmur, positive posterior tibial pulse right, Lungs: CTA bilateral, no rhonchi, no rales , no accessory muscle use Abdominal: soft, nontender to palpation, no guarding, no appreciable organome jeanna Ext: no gross muscle atrophy, no edema, no contractures Neuro: CN II-XI grossly intact, no focal neuro deficits Psych: Alert, oriented, appropriate affect A total of 25 minutes of time were spent preparing this complex discharge summary . Pertinent Studies: CT abdomen and pelvis-nonspecific multiple retroperitoneal lymph nodes Patient Condition at Discharge: Stable Plan - Discharge Summary Discharge Rx Participant: No New Discharge Prescriptions: New Lactulose [Cephulac] 10 gm PO TID PRN #0 ml PRN Reason: Constipation Insulin Detemir (Levemir) [Levemir] 14 unit SQ HS #0 syr Metoprolol Tartrate [Lopressor] 25 mg PO BID #0 tab HYDROcodone/APAP 5-325MG [[place] 5-325] 1 each PO Q6HR PRN #12 tab PRN Reason: Pain Insulin Detemir (Levemir) [Levemir] 25 unit SQ HS syr INSULIN ASPART (NovoLOG) [NovoLOG (formulary)] 6 unit SQ AC-TID vial INSULIN ASPART (NovoLOG) [NovoLOG (formulary)] 0 unit SQ ACHS vial Continue Pantoprazole [Protonix] 40 mg PO DAILY Levothyroxine Sodium [Synthroid] 75 mcg PO DAILY Pravastatin Sodium [Pravachol] 20 mg PO HS Calcium Acetate [PhosLo] 667 mg PO AC-TID Clopidogrel [Plavix] 75 mg PO DAILY Rosio-Thomas 1 tab PO DAILY Meclizine [Antivert] 25 mg PO TID PRN PRN Reason: Vertigo Aspirin [Adult Low Dose Aspirin EC] 81 mg PO HS Acetaminophen Tab [Tylenol] 1,000 mg PO Q8H Furosemide [Lasix] 80 mg PO BID Losartan [Cozaar] 25 mg PO DIRECTED Pregabalin [Lyrica] 50 mg PO BID #6 cap Discontinued Metoprolol Tartrate [Lopressor] 12.5 mg PO BID Discharge Medication List Levothyroxine Sodium [Synthroid] 75 mcg PO DAILY 10/09/16 [History] Pantoprazole [Protonix] 40 mg PO DAILY 10/09/16 [History] Pravastatin Sodium [Pravachol] 20 mg PO HS 10/09/16 [History] Calcium Acetate [PhosLo] 667 mg PO AC-TID 03/11/17 [History] Clopidogrel [Plavix] 75 mg PO DAILY 03/11/17 [History] Rosio-Thomas 1 tab PO DAILY 03/11/17 [History] Meclizine [Antivert] 25 mg PO TID PRN 04/26/17 [History] Aspirin [Adult Low Dose Aspirin EC] 81 mg PO HS 06/07/17 [History] Acetaminophen Tab [Tylenol] 1,000 mg PO Q8H 04/23/18 [History] Furosemide [Lasix] 80 mg PO BID 04/23/18 [History] Losartan [Cozaar] 25 mg PO DIRECTED 04/23/18 [History] HYDROcodone/APAP 5-325MG [[place] 5-325] 1 each PO Q6HR PRN #12 tab 11/15/18 [Rx] Insulin Detemir (Levemir) [Levemir] 14 unit SQ HS #0 syr 11/15/18 [Rx] Lactulose [Cephulac] 10 gm PO TID PRN #0 ml 11/15/18 [Rx] Metoprolol Tartrate [Lopressor] 25 mg PO BID #0 tab 11/15/18 [Rx] Pregabalin [Lyrica] 50 mg PO BID #6 cap 11/15/18 [Rx] INSULIN ASPART (NovoLOG) [NovoLOG (formulary)] 0 unit SQ ACHS vial 07/24/19 [Rx] INSULIN ASPART (NovoLOG) [NovoLOG (formulary)] 6 unit SQ AC-TID vial 11/20/18 [Rx] Insulin Detemir (Levemir) [Levemir] 25 unit SQ HS syr 11/20/18 [Rx] Follow up Appointment(s)/Referral(s): Zoey Archer MD [STAFF PHYSICIAN] - 1 Week Jerome Gan MD [STAFF PHYSICIAN] - 1 Week Ailyn Eaton MD [Primary Care Provider] - 1-2 days Esperanza Chua NPC [Nurse Practitioner] - 1 Week [facility], [NON-STAFF] - Ambulatory/Diagnostic Orders: Basic Metabolic Panel [LAB.AMB] Time Frame: 3 Days, Location: None Selected Patient Instructions/Handouts: Type 2 Diabetes in Adults: New Diagnosis (DC), Diabetic Foot Ulcers (DC), Peritonitis (DC) Activity/Diet/Wound Care/Special Instructions: Diet: Renal diet Follow-up with PCP within 1-2 days of discharge. Follow-up with wound clinic within 1 week of discharge. Follow-up with infectious disease within 1 week of discharge. follow-up with nephrology within 1 week of discharge. Take all medications as advised. You'll need to take gentamicin peritoneal for 1 more week. Discharge Disposition: TRANSFER TO SNF/ECF
--- NOTE | 2018-11-20 10:05 | P.PN ---
Subjective Patient is seen in follow-up for end-stage renal disease. She is maintained on peritoneal dialysis. She is maintaining net negative fluid balance with 2.5% exchanges. No abdominal pain. Edema has improved. Currently on intraperitoneal gentamicin. Patient received intraperitoneal vancomycin on November 09 and November 15. No chest pain or shortness of breath. No active complaints at this time. Potentially discharged to rehab today. Vital signs are stable. General: The patient appeared well nourished and normally developed. HEENT: Head exam is unremarkable. Neck is without jugular venous distension. LUNGS: Lungs are clear to auscultation and percussion. Breath sounds decreased. HEART: Rate and Rhythm are regular. First and second heart sounds normal. No murmurs, rubs or gallops. ABDOMEN: Abdominal exam reveals normal bowel sounds. Non-tender and non- distended. EXTREMITITES: 1+ edema. Right BKA noted. Objective - Vital Signs Vital signs: Vital Signs Temp 97.5 F L 11/20/18 08:25 Pulse 67 11/20/18 08:25 Resp 17 11/20/18 08:25 BP 125/59 11/20/18 08:25 Pulse Ox 99 11/20/18 08:25 Intake & Output 11/19/18 11/20/18 11/20/18 18:59 06:59 18:59 Intake Total 240 Balance 240 Intake: Oral 240 Other: Voiding Method Bedpan Bedpan # Voids 1 # Bowel Movements 1 1 - Labs CBC & Chem 7: 11/19/18 10:47 11/19/18 10:47 Labs: Abnormal Lab Results - Last 24 Hours (Table) 11/19/18 11/19/18 11/19/18 Range/Units 10:47 10:47 12:15 RBC 2.90 L (3.80-5.40) m/uL Hgb 8.9 L (11.4-16.0) gm/dL Hct 29.4 L (34.0-46.0) % MCV 101.6 H (80.0-100.0) fL MCHC 30.3 L (31.0-37.0) g/dL RDW 16.8 H (11.5-15.5) % Lymphocytes # 0.7 L (1.0-4.8) k/uL Carbon Dioxide 32 H (22-30) mmol/L BUN 58 H (7-17) mg/dL Creatinine 10.51 H* (0.52-1.04) mg/dL Glucose 182 H (74-99) mg/dL POC Glucose (mg/dL) 178 H (75-99) mg/dL Calcium 7.6 L (8.4-10.2) mg/dL AST 39 H (14-36) U/L Total Protein 6.2 L (6.3-8.2) g/dL Albumin 3.1 L (3.5-5.0) g/dL 11/19/18 11/19/18 11/20/18 Range/Units 17:40 21:32 07:34 RBC (3.80-5.40) m/uL Hgb (11.4-16.0) gm/dL Hct (34.0-46.0) % MCV (80.0-100.0) fL MCHC (31.0-37.0) g/dL RDW (11.5-15.5) % Lymphocytes # (1.0-4.8) k/uL Carbon Dioxide (22-30) mmol/L BUN (7-17) mg/dL Creatinine (0.52-1.04) mg/dL Glucose (74-99) mg/dL POC Glucose (mg/dL) 168 H 262 H 264 H (75-99) mg/dL Calcium (8.4-10.2) mg/dL AST (14-36) U/L Total Protein (6.3-8.2) g/dL Albumin (3.5-5.0) g/dL Assessment and Plan Plan: Assessment: 1. End-stage renal disease maintained on peritoneal dialysis. 2. CAPD related peritonitis. Cell count improved significantly. Culture negative so far. 3. UTI with urine culture positive for E. coli. 4. Anemia of chronic kidney disease. Maintained on Aranesp. 5. Hypertension with chronic kidney disease. Controlled. 6. Insulin-dependent diabetes mellitus. 7. Chronic kidney disease mineral bone disease maintained on PhosLo. 8. Constipation. Better with lactulose. 9. Hypokalemia secondary to diuresis and PD losses. Better post replacement. Plan: Continue intraperitoneal gentamicin 60 mg daily - started November 12. Status post intraperitoneal vancomycin on November 09 and November 15. Follow-up cultures. Maintain 2 L exchanges with 2.5% dextrose solution every 6 hours. Continue lactulose 15 g 3 times daily as needed for constipation. Plan for rehab upon discharge. She will be maintained on intraperitoneal antibiotics for a total course of 3 weeks.
[2018-11-20 12:03] LABS: Glucose,Whole Blood 244 mg/dL (75-99)
[2018-11-20] MEDS: GENTAMICIN INTRAPERIT SCH (12:39)
[2018-11-20] MEDS: DIALYSIS DEX INTRAPERIT SCH (12:39)
[2018-11-20 13:15] VITALS: BP 140/78; PULSE 88; RESP 16; TEMP 98
--- NOTE | 2018-11-20 13:24 | CDI ---
Documentation Clarification Form Date: 11/20/2018 1:10:52 PM From: Dorothy Hendrickson RN, CCDS Admit Date: 11/09/2018 12:00:00 AM Patient Name: Kendra Cedillo Visit Number: [id number] ATTENTION: The Clinical Documentation Specialists (CDI) and [facility] Coding Staff appreciate your assistance in clarifying documentation. Please respond to the clarification below the line at the bottom and electronically sign. The CDI & [facility] Coding staff will review the response and follow-up if needed. Please note: Queries are made part of the Legal Health Record. If you have any questions, please contact the author of this message via ITS. Dr. Lianet Loja Malnutrition has been documented in the progress notes and requires further specificity. History/Risk Factors: Secondary peritonitis d/t CAPD cath, ESRD on PD, DM2 with hyperglycemia, Ecoli UTI Clinical Indicators: Labs: Total Protein: 6/4.9/5.1 Albumin: 3.1/2.4/2.5 Prealbumin: 14 Current BMI: 35.4 Insufficient energy intake: Obesity, amputations, Wounds to lower extremity Weight Loss: Loss of muscle mass: Patient has generalized weakness and requires physical assistance for ADL's Treatment: Dietary Consult: completed 11/14/18 and 11/18/18 Supplements: Ensure Compact Po BID Lab monitoring: AM Daily In your professional opinion, can you please clarify if these findings signify one of the following conditions? Mild Protein-Calorie Malnutrition Moderate Protein-Calorie Malnutrition Severe Protein-Calorie Malnutrition Other condition, please specify Unable to determine (Last Revision: October 2018) Moderate protein calorie malnutrition MTDD
[2018-11-20] MEDS ORDERED: INSULIN DETEMIR (LEVEMIR) 100 UNIT/ML SYR SQ SCH (21:00)
[2018-11-21] MEDS ORDERED: GENTAMICIN INTRAPERIT SCH (12:00)
[2018-11-21] MEDS ORDERED: DIALYSIS DEX INTRAPERIT SCH (12:00)
== END 2018-11-20 14:12 | DRG 919 ==
LOC: EC 18:44 → 4MS4W 11-09
PROVIDERS: ADMIT Internal Medicine; ATTEND Internal Medicine
PROC: 3E1M39Z Irrigation of Peritoneal Cavity using Dialysate, Percutaneous Approach (ICD-10-PCS; principal; 2018-11-11)
DX: T85.71XA Infection and inflammatory reaction due to peritoneal dialysis catheter, initial encounter (principal); N18.6 End stage renal disease; K65.9 Peritonitis, unspecified; A41.9 Sepsis, unspecified organism; J18.9 Pneumonia, unspecified organism; I12.0 Hypertensive chronic kidney disease with stage 5 chronic kidney disease or end stage renal disease; E44.0 Moderate protein-calorie malnutrition; L97.422 Non-pressure chronic ulcer of left heel and midfoot with fat layer exposed; N25.81 Secondary hyperparathyroidism of renal origin; N39.0 Urinary tract infection, site not specified; J98.11 Atelectasis; T85.611A Breakdown (mechanical) of intraperitoneal dialysis catheter, initial encounter; E11.22 Type 2 diabetes mellitus with diabetic chronic kidney disease; E11.40 Type 2 diabetes mellitus with diabetic neuropathy, unspecified; E11.319 Type 2 diabetes mellitus with unspecified diabetic retinopathy without macular edema; E11.51 Type 2 diabetes mellitus with diabetic peripheral angiopathy without gangrene; E11.621 Type 2 diabetes mellitus with foot ulcer; E66.01 Morbid (severe) obesity due to excess calories; M06.1 Adult-onset Still's disease; E11.65 Type 2 diabetes mellitus with hyperglycemia; E87.70 Fluid overload, unspecified; E83.9 Disorder of mineral metabolism, unspecified; D63.1 Anemia in chronic kidney disease; E87.6 Hypokalemia; B96.20 Unspecified Escherichia coli [E. coli] as the cause of diseases classified elsewhere; K21.9 Gastro-esophageal reflux disease without esophagitis; E78.5 Hyperlipidemia, unspecified; E03.9 Hypothyroidism, unspecified; H93.12 Tinnitus, left ear; K59.00 Constipation, unspecified; R19.7 Diarrhea, unspecified; T50.2X5A Adverse effect of carbonic-anhydrase inhibitors, benzothiadiazides and other diuretics, initial encounter; M25.511 Pain in right shoulder; Z68.35 Body mass index [BMI] 35.0-35.9, adult; Z79.82 Long term (current) use of aspirin; Z79.02 Long term (current) use of antithrombotics/antiplatelets; Z79.890 Hormone replacement therapy; Z79.4 Long term (current) use of insulin; Z99.2 Dependence on renal dialysis; Z79.899 Other long term (current) drug therapy; Z71.3 Dietary counseling and surveillance; Z89.511 Acquired absence of right leg below knee; Z86.14 Personal history of Methicillin resistant Staphylococcus aureus infection; Z90.710 Acquired absence of both cervix and uterus; Z98.1 Arthrodesis status; Z87.891 Personal history of nicotine dependence; Z86.59 Personal history of other mental and behavioral disorders; Z88.8 Allergy status to other drugs, medicaments and biological substances; Z83.3 Family history of diabetes mellitus; Z80.0 Family history of malignant neoplasm of digestive organs; Z82.49 Family history of ischemic heart disease and other diseases of the circulatory system; Y84.1 Kidney dialysis as the cause of abnormal reaction of the patient, or of later complication, without mention of misadventure at the time of the procedure; Y92.009 Unspecified place in unspecified non-institutional (private) residence as the place of occurrence of the external cause; W19.XXXA Unspecified fall, initial encounter
CPT/HCPCS: 36415; 71046; 74176; 80053; 80170; 80202; 81001; 82150; 83036; 83540; 83550; 83605; 83690; 83735; 84134; 85025; 87040; 87070; 87077; 87086; 87186; 87205; 89050; 96361; 96374; 96375; 99285

== ENCOUNTER 2019-01-04 18:34 | Emergency (ER) | payer MEDICARE ==
[2019-01-04] MEDS ORDERED: ACETAMINOPHEN TAB 325 MG TAB PO ONE (18:43)
--- NOTE | 2019-01-04 18:47 | ED ---
Recheck HPI - General Chief Complaint: Recheck/Abnormal Lab/Rx Stated Complaint: Abn labs Time Seen by Provider: 01/04/19 18:42 Source: patient Mode of arrival: EMS Limitations: no limitations - History of Present Illness Initial Comments: Maldonado is a pleasant 63-year-old female history of chronic kidney disease, chronic anemia requiring transfusions in the past. Patient currently is undergoing nightly peritoneal dialysis. She had labs drawn at her skilled nursing today and noted that her hemoglobin had decreased to 6.1 her baseline is usually about 7.5 to eat. She is transferred to hospital for transfusion. Patient reports that she's been feeling at her baseline no fatigue no chest pain or palpitations or lightheadedness. - Related Data Home Medications Medication Instructions Recorded Confirmed Levothyroxine Sodium [Synthroid] 75 mcg PO DAILY 10/09/16 01/04/19 Pantoprazole [Protonix] 40 mg PO DAILY 10/09/16 01/04/19 Pravastatin Sodium [Pravachol] 20 mg PO DAILY@1700 10/09/16 01/04/19 Calcium Acetate [PhosLo] 667 mg PO AC-TID 03/11/17 01/04/19 Clopidogrel [Plavix] 75 mg PO DAILY 03/11/17 01/04/19 Rosio-Thomas 1 tab PO DAILY 03/11/17 01/04/19 Meclizine [Antivert] 25 mg PO TID PRN 04/26/17 01/04/19 Aspirin [Adult Low Dose Aspirin EC] 81 mg PO DAILY@1700 06/07/17 01/04/19 Acetaminophen Tab [Tylenol] 1,000 mg PO Q8H PRN 04/23/18 01/04/19 Furosemide [Lasix] 80 mg PO BID 04/23/18 01/04/19 Bisacodyl [Dulcolax] 10 mg RECTAL DAILY PRN 01/04/19 01/04/19 Fluticasone Nasal [place] [Flonase 1 spray EA NOSTRIL BID 01/04/19 01/04/19 Nasal [place]] HYDROcodone/APAP 5-325MG [[place] 1 tab PO Q6HR PRN 01/04/19 01/04/19 5-325] INSULIN ASPART (NovoLOG) [NovoLOG 10 unit SQ AC-TID 01/04/19 01/04/19 (formulary)] INSULIN ASPART (NovoLOG) [NovoLOG See Protocol SQ ACHS 01/04/19 (formulary)] Insulin Detemir (Levemir) [Levemir] 40 unit SQ HS 01/04/19 01/04/19 Loperamide [Imodium] 2 mg PO QID PRN 01/04/19 01/04/19 Na Phos,M-B/Na Phos,Di-Ba [Fleet 133 ml RECTAL DAILY PRN 01/04/19 01/04/19 Adult] Pregabalin [Lyrica] 25 mg PO BID 01/04/19 01/04/19 Previous Rx's Medication Instructions Recorded Lactulose [Cephulac] 10 gm PO TID PRN #0 ml 11/15/18 Metoprolol Tartrate [Lopressor] 25 mg PO BID #0 tab 11/15/18 Allergies Allergy/AdvReac Type Severity Reaction Status Date / Time gabapentin Allergy Rash/Hives Verified 01/04/19 19:12 lisinopril AdvReac Cough Verified 01/04/19 19:12 Review of Systems ROS Statement: Those systems with pertinent positive or pertinent negative responses have been documented in the HPI. ROS Other: All systems not noted in ROS Statement are negative. Past Medical History Past Medical History: Diabetes Mellitus, Dialysis, GERD/Reflux, Hyperlipidemia, Hypertension, Memory Impairment, Renal Disease, Thyroid Disorder Additional Past Medical History / Comment(s): peritoneal dialysis daily over night. hx stil syndrome left hand-please use rt arm/hand for iv, blood draws. diabetic neuropathy and diabetic retinopathy, Rt BKA uses prosthesis History of Any Multi-Drug Resistant Organisms: MRSA Date of last positivie culture/infection: 2015 MDRO Source:: rt foot Past Surgical History: Back Surgery, Hysterectomy Additional Past Surgical History / Comment(s): RBKA 01/23/16 R/T DM. neck cervical 4,5,6 fused. graft tie off 04/05/2017, eye laser surgery for diabetic retinopathy Past Anesthesia/Blood Transfusion Reactions: No Reported Reaction Past Psychological History: Anxiety, Depression Smoking Status: Former smoker Past Alcohol Use History: Occasional Past Drug Use History: None Reported - Past Family History Mother Family Medical History: Diabetes Mellitus, Hypertension Additional Family Medical History / Comment(s): colon ca Father Family Medical History: Myocardial Infarction (SD) General Exam - General Exam Comments Initial Comments: Physical Exam GENERAL: Chronically ill-appearing HENT: Normocephalic, Atraumatic. EYES: PERRL, EOMI Conjunctival pallor PULMONARY: Unlabored respirations. No audible rales rhonchi or wheezing was noted. CARDIOVASCULAR: There is a regular rate and rhythm without any murmurs gallops or rubs. ABDOMEN: Soft and nontender with normal bowel sounds. Peritoneal dialysis access SKIN: Skin is clear with no lesions or rashes and otherwise unremarkable. : Deferred NEUROLOGIC: Patient is alert and oriented x3. Moving all extremities spontaneously MUSCULOSKELETAL: Normal extremities with adequate strength and full range of motion. No lower extremity swelling or edema. No calf tenderness. PSYCHIATRIC: Normal psychiatric evaluation. Limitations: no limitations Course Vital Signs 01/04/19 01/04/19 01/04/19 18:36 19:35 20:39 Temperature 99.2 F 98.8 F Pulse Rate 67 65 Respiratory 18 16 16 Rate Blood Pressure 116/49 116/49 136/62 O2 Sat by Pulse 98 97 100 Oximetry 01/04/19 01/04/19 01/04/19 20:49 21:00 21:19 Temperature 98.8 F 98.3 F Pulse Rate 64 63 63 Respiratory 16 16 16 Rate Blood Pressure 112/49 124/58 119/52 O2 Sat by Pulse 100 100 98 Oximetry 01/04/19 01/04/19 01/04/19 22:00 22:49 23:21 Temperature 98.1 F 98.0 F 98.1 F Pulse Rate 69 62 64 Respiratory 18 18 18 Rate Blood Pressure 129/65 113/52 113/52 O2 Sat by Pulse 100 100 100 Oximetry 01/04/19 01/05/19 23:44 00:30 Temperature 98.3 F 98.1 F Pulse Rate 66 66 Respiratory 16 18 Rate Blood Pressure 109/53 136/53 O2 Sat by Pulse 99 98 Oximetry Medical Decision Making - Medical Decision Making The patient was seen and evaluated, history is obtained from the patient and review of medical record Patient has baseline hemoglobin of personal is 7.5-8. Patient's hemoglobin prior to transfer was 6.1 Repeat labs type and cross were ordered, patient has a symptomatic anemia and will be transfused. I offered to keep the patient observation unit however she preferred to be discharged back to her skilled nursing tonight as she did not bring any of her peritoneal dialysis materials. Patient tolerated transfusion of 2 units of packed red blood cells without reaction. Patient rates hemodynamic is stable and is stable for discharge back to retirement facility. - Lab Data Result diagrams: 01/04/19 18:54 01/04/19 18:54 Lab Results 01/04/19 01/04/19 01/04/19 Range/Units 18:54 18:54 18:54 WBC 6.5 (3.8-10.6) k/uL RBC 2.13 L (3.80-5.40) m/uL Hgb 6.3 L* (11.4-16.0) gm/dL Hct 20.1 L (34.0-46.0) % MCV 94.4 (80.0-100.0) fL MCH 29.5 (25.0-35.0) pg MCHC 31.2 (31.0-37.0) g/dL RDW 17.1 H (11.5-15.5) % Plt Count 245 (150-450) k/uL Neutrophils % 77 % Lymphocytes % 11 % Monocytes % 4 % Eosinophils % 6 % Basophils % 1 % Neutrophils # 5.0 (1.3-7.7) k/uL Lymphocytes # 0.7 L (1.0-4.8) k/uL Monocytes # 0.3 (0-1.0) k/uL Eosinophils # 0.4 (0-0.7) k/uL Basophils # 0.0 (0-0.2) k/uL Hypochromasia Marked Poikilocytosis Slight Anisocytosis Slight Sodium 140 (137-145) mmol/L Potassium 3.7 (3.5-5.1) mmol/L Chloride 100 (98-107) mmol/L Carbon Dioxide 28 (22-30) mmol/L Anion Gap 12 mmol/L BUN 86 H (7-17) mg/dL Creatinine 11.46 H* (0.52-1.04) mg/dL Est GFR (CKD-EPI)AfAm 4 (>60 ml/min/1.73 sqM) Est GFR (CKD-EPI)NonAf 3 (>60 ml/min/1.73 sqM) Glucose 80 (74-99) mg/dL POC Glucose (mg/dL) (75-99) mg/dL POC Glu Judo Teacher ID Calcium 7.4 L (8.4-10.2) mg/dL Phosphorus 5.0 H (2.5-4.5) mg/dL Magnesium 1.8 (1.6-2.3) mg/dL Total Bilirubin 0.2 (0.2-1.3) mg/dL AST 19 (14-36) U/L ALT 18 (9-52) U/L Alkaline Phosphatase 79 (38-126) U/L Total Protein 5.3 L (6.3-8.2) g/dL Albumin 2.8 L (3.5-5.0) g/dL Blood Type O Positive Blood Type Confirm Blood Type Recheck No Previous Record Bld Type Recheck Status CABO Indicated Antibody Screen NEGATIVE Crossmatch See Detail Spec Expiration Date 01/07/2019235301/04/19 01/04/19 Range/Units 19:20 23:43 WBC (3.8-10.6) k/uL RBC (3.80-5.40) m/uL Hgb (11.4-16.0) gm/dL Hct (34.0-46.0) % MCV (80.0-100.0) fL MCH (25.0-35.0) pg MCHC (31.0-37.0) g/dL RDW (11.5-15.5) % Plt Count (150-450) k/uL Neutrophils % % Lymphocytes % % Monocytes % % Eosinophils % % Basophils % % Neutrophils # (1.3-7.7) k/uL Lymphocytes # (1.0-4.8) k/uL Monocytes # (0-1.0) k/uL Eosinophils # (0-0.7) k/uL Basophils # (0-0.2) k/uL Hypochromasia Poikilocytosis Anisocytosis Sodium (137-145) mmol/L Potassium (3.5-5.1) mmol/L Chloride (98-107) mmol/L Carbon Dioxide (22-30) mmol/L Anion Gap mmol/L BUN (7-17) mg/dL Creatinine (0.52-1.04) mg/dL Est GFR (CKD-EPI)AfAm (>60 ml/min/1.73 sqM) Est GFR (CKD-EPI)NonAf (>60 ml/min/1.73 sqM) Glucose (74-99) mg/dL POC Glucose (mg/dL) 111 H (75-99) mg/dL POC Glu Judo Teacher ID Lakeisha Parrishi Calcium (8.4-10.2) mg/dL Phosphorus (2.5-4.5) mg/dL Magnesium (1.6-2.3) mg/dL Total Bilirubin (0.2-1.3) mg/dL AST (14-36) U/L ALT (9-52) U/L Alkaline Phosphatase (38-126) U/L Total Protein (6.3-8.2) g/dL Albumin (3.5-5.0) g/dL Blood Type Blood Type Confirm O Positive Blood Type Recheck Bld Type Recheck Status Antibody Screen Crossmatch Spec Expiration Date Disposition Clinical Impression: End stage renal disease on dialysis, Chronic anemia Disposition: HOME SELF-CARE Condition: Serious Is patient prescribed a controlled substance at d/c from ED?: No Referrals: Ailyn Eaton MD [Primary Care Provider] - 1-2 days
[2019-01-04 19:10] LABS: Anisocytosis Slight; Basophils % (A) 1 %; Eosinophils # (A) 0.4 k/uL (0-0.7); Eosinophils % (A) 6 %; HCT 20.1 % (34.0-46.0); Hypochromasia Marked; Lymphocytes # (A) 0.7 k/uL (1.0-4.8); Lymphocytes % (A) 11 %; MCH 29.5 pg (25.0-35.0); MCHC 31.2 g/dL (31.0-37.0); MCV 94.4 fL (80.0-100.0); Mean Platelet Volume 9.5; Monocytes # (A) 0.3 k/uL (0-1.0); Monocytes % (A) 4 %; Neutrophils % (A) 77 %; Platelet Count 245 k/uL (150-450); Poikilocytosis Slight; RBC 2.13 m/uL (3.80-5.40); RDW 17.1 % (11.5-15.5); WBC 6.5 k/uL (3.8-10.6)
[2019-01-04 19:12] LABS: HGB 6.3 gm/dL (11.4-16.0)
[2019-01-04 19:17] LABS: Albumin 2.8 g/dL (3.5-5.0); Calcium 7.4 mg/dL (8.4-10.2); Magnesium 1.8 mg/dL (1.6-2.3); Potassium 3.7 mmol/L (3.5-5.1); Total Bilirubin 0.2 mg/dL (0.2-1.3); Total Protein 5.3 g/dL (6.3-8.2)
[2019-01-04 23:46] VITALS: PULSE 66
[2019-01-04 23:53] LABS: Glucose,Whole Blood 111 mg/dL (75-99)
[2019-01-05 00:41] VITALS: BP 136/53; RESP 18; TEMP 98.1
== END 2019-01-05 00:44 | disposition home or self-care (01) ==
LOC: EC 18:34
DX: D64.9 Anemia, unspecified (principal); I12.0 Hypertensive chronic kidney disease with stage 5 chronic kidney disease or end stage renal disease; N18.6 End stage renal disease; E11.22 Type 2 diabetes mellitus with diabetic chronic kidney disease; K21.9 Gastro-esophageal reflux disease without esophagitis; E78.5 Hyperlipidemia, unspecified; E11.40 Type 2 diabetes mellitus with diabetic neuropathy, unspecified; E07.9 Disorder of thyroid, unspecified; Z86.14 Personal history of Methicillin resistant Staphylococcus aureus infection; Z89.511 Acquired absence of right leg below knee; Z99.2 Dependence on renal dialysis; Z87.891 Personal history of nicotine dependence; Z79.890 Hormone replacement therapy; Z79.02 Long term (current) use of antithrombotics/antiplatelets; Z79.82 Long term (current) use of aspirin; Z79.4 Long term (current) use of insulin; Z79.899 Other long term (current) drug therapy; Z88.8 Allergy status to other drugs, medicaments and biological substances; Z53.29 Procedure and treatment not carried out because of patient's decision for other reasons
CPT/HCPCS: 36415; 86900; 86901; 80053; 83735; 84100; 85025; 86850; 86920; 99283; P9016

== ENCOUNTER 2019-02-23 20:27 | Inpatient (IN) | payer MEDICARE ==
[2019-02-23] MEDS ORDERED: SODIUM CHLORIDE 0.9% 1,000 ML IV STA (20:41)
[2019-02-23] MEDS ORDERED: IBUPROFEN 600 MG TAB PO STA (20:41)
[2019-02-23] MEDS ORDERED: ACETAMINOPHEN TAB 500 MG TAB PO STA (20:41)
--- NOTE | 2019-02-23 21:04 | ED ---
Weakness HPI - General Chief complaint: Weakness Stated complaint: Weakness Time Seen by Provider: 02/23/19 20:29 Source: patient, family, EMS, RN notes reviewed, old records reviewed Mode of arrival: EMS Limitations: altered mental status - History of Present Illness Initial comments: This is a 63-year-old female presents with family member and found patient unresponsive decreased level responsiveness with fever not acting appropriately altered mental status. Patient does dialysis and is recently of prolonged stay at [facility]. Patient has had decreased activity level as of late. But no recent travel history. Multiple recent hospitalizations. Patient does not urinate. Patient's a poor strain history obtained from family member or friend MD Complaint: generalized weakness, lack of energy -: unknown Location: generalized Severity: moderate Severity scale (1-10): 6 Consistency: constant Improves with: none Worsens with: none Context: recent illness, history of similar Associated Symptoms: confusion, fever/chills, loss of appetite, nausea/vomiting - Related Data Home Medications Medication Instructions Recorded Confirmed Levothyroxine Sodium [Synthroid] 75 mcg PO DAILY 10/09/16 02/23/19 Pantoprazole [Protonix] 40 mg PO DAILY 10/09/16 02/23/19 Pravastatin Sodium [Pravachol] 20 mg PO DAILY 10/09/16 02/23/19 Calcium Acetate [PhosLo] 667 mg PO AC-TID 03/11/17 02/23/19 Clopidogrel [Plavix] 75 mg PO DAILY 03/11/17 02/23/19 Rosio-Thomas 1 tab PO DAILY 03/11/17 02/23/19 Meclizine [Antivert] 25 mg PO TID PRN 04/26/17 02/23/19 Acetaminophen Tab [Tylenol] 1,000 mg PO Q8H PRN 04/23/18 02/23/19 Furosemide [Lasix] 80 mg PO BID 04/23/18 02/23/19 Fluticasone Nasal [place] [Flonase 1 spray EA NOSTRIL BID 01/04/19 02/23/19 Nasal [place]] HYDROcodone/APAP 5-325MG [[place] 1 tab PO Q6HR PRN 01/04/19 02/23/19 5-325] Loperamide [Imodium] 2 mg PO QID PRN 01/04/19 02/23/19 Pregabalin [Lyrica] 50 mg PO BID 01/04/19 02/23/19 Apixaban [Eliquis] 2.5 mg PO BID 02/23/19 02/23/19 Previous Rx's Medication Instructions Recorded Lactulose [Cephulac] 10 gm PO TID PRN #0 ml 11/15/18 Metoprolol Tartrate [Lopressor] 25 mg PO BID #0 tab 11/15/18 Allergies Allergy/AdvReac Type Severity Reaction Status Date / Time gabapentin Allergy Rash/Hives Verified 02/23/19 21:32 lisinopril AdvReac Cough Verified 02/23/19 21:32 Review of Systems ROS Statement: Those systems with pertinent positive or pertinent negative responses have been documented in the HPI. ROS Other: All systems not noted in ROS Statement are negative. Past Medical History Past Medical History: Diabetes Mellitus, Dialysis, GERD/Reflux, Hyperlipidemia, Hypertension, Memory Impairment, Renal Disease, Thyroid Disorder Additional Past Medical History / Comment(s): peritoneal dialysis daily over night. hx stil syndrome left hand-please use rt arm/hand for iv, blood draws. diabetic neuropathy and diabetic retinopathy, Rt BKA uses prosthesis History of Any Multi-Drug Resistant Organisms: MRSA Date of last positivie culture/infection: 2015 MDRO Source:: rt foot Past Surgical History: Back Surgery, Hysterectomy Additional Past Surgical History / Comment(s): RBKA 01/23/16 R/T DM. neck cervical 4,5,6 fused. graft tie off 04/05/2017, eye laser surgery for diabetic retinopathy Past Anesthesia/Blood Transfusion Reactions: No Reported Reaction Past Psychological History: Anxiety, Depression Smoking Status: Former smoker Past Alcohol Use History: None Reported Past Drug Use History: None Reported - Past Family History Mother Family Medical History: Diabetes Mellitus, Hypertension Additional Family Medical History / Comment(s): colon ca Father Family Medical History: Myocardial Infarction ([place]) General Exam Limitations: altered mental status General appearance: alert, in no apparent distress Head exam: Present: atraumatic, normocephalic, normal inspection Eye exam: Present: normal appearance, PERRL, EOMI. Absent: scleral icterus, conjunctival injection, periorbital swelling ENT exam: Present: normal exam, mucous membranes moist Neck exam: Present: normal inspection. Absent: tenderness, meningismus, lymphadenopathy Respiratory exam: Present: normal lung sounds bilaterally. Absent: respiratory distress, wheezes, rales, rhonchi, stridor Cardiovascular Exam: Present: normal rhythm, tachycardia, normal heart sounds. Absent: systolic murmur, diastolic murmur, rubs, gallop, clicks GI/Abdominal exam: Present: soft, normal bowel sounds. Absent: distended, tenderness, guarding, rebound, rigid Extremities exam: Present: normal inspection, full ROM, normal capillary refill. Absent: tenderness, pedal edema, joint swelling, calf tenderness Back exam: Present: normal inspection Neurological exam: Present: alert, oriented X3, CN II-XII intact Psychiatric exam: Present: normal affect, normal mood Skin exam: Present: warm, dry, intact, normal color. Absent: rash Course Vital Signs 02/23/19 02/23/19 02/23/19 20:31 21:45 23:07 Temperature 102 F H 99.6 F Pulse Rate 82 71 Respiratory 18 18 Rate Blood Pressure 143/70 101/46 O2 Sat by Pulse 96 93 L Oximetry - Reevaluation(s) Reevaluation #1: 02/23/19 23:19 Medical records reviewed Reevaluation #2: 02/23/19 23:19 A she is again improving here with symptom management EKG Findings - EKG Comments: EKG Findings:: EKG shows normal sinus or metastatic, AK 180, QRS 84, QTC 591 Medical Decision Making - Medical Decision Making 63 female the ER for evaluation patient is today for eversion altered mental status known fever here in the ER is fevers improved with hydration mental status is improving with hydration fever control. Unknown origin of current testing. Patient will be admitted for further evaluation - Lab Data Result diagrams: 02/23/19 20:44 02/23/19 20:44 Lab Results 02/23/19 02/23/19 02/23/19 Range/Units 20:44 20:44 20:44 WBC 14.1 H (3.8-10.6) k/uL RBC 3.46 L (3.80-5.40) m/uL Hgb 9.6 L (11.4-16.0) gm/dL Hct 30.7 L (34.0-46.0) % MCV 88.7 (80.0-100.0) fL MCH 27.8 (25.0-35.0) pg MCHC 31.3 (31.0-37.0) g/dL RDW 15.7 H (11.5-15.5) % Plt Count 272 (150-450) k/uL Neutrophils % 90 % Lymphocytes % 4 % Monocytes % 3 % Eosinophils % 2 % Basophils % 1 % Neutrophils # 12.7 H (1.3-7.7) k/uL Lymphocytes # 0.5 L (1.0-4.8) k/uL Monocytes # 0.4 (0-1.0) k/uL Eosinophils # 0.2 (0-0.7) k/uL Basophils # 0.1 (0-0.2) k/uL Hypochromasia Marked Poikilocytosis Slight PT (9.0-12.0) sec INR (<1.2) APTT (22.0-30.0) sec Sodium 140 (137-145) mmol/L Potassium 3.2 L (3.5-5.1) mmol/L Chloride 100 (98-107) mmol/L Carbon Dioxide 27 (22-30) mmol/L Anion Gap 13 mmol/L BUN 56 H (7-17) mg/dL Creatinine 12.64 H* (0.52-1.04) mg/dL Est GFR (CKD-EPI)AfAm 3 (>60 ml/min/1.73 sqM) Est GFR (CKD-EPI)NonAf 3 (>60 ml/min/1.73 sqM) Glucose 232 H (74-99) mg/dL Plasma Lactic Acid James 1.5 (0.7-2.0) mmol/L Calcium 6.8 L (8.4-10.2) mg/dL Phosphorus 4.4 (2.5-4.5) mg/dL Magnesium 1.4 L (1.6-2.3) mg/dL Total Bilirubin 0.3 (0.2-1.3) mg/dL AST 13 L (14-36) U/L ALT 14 (9-52) U/L Alkaline Phosphatase 84 (38-126) U/L Creatine Kinase 137 H (30-135) U/L Troponin I (0.000-0.034) ng/mL Total Protein 5.8 L (6.3-8.2) g/dL Albumin 2.9 L (3.5-5.0) g/dL Influenza Type A RNA (Not Detectd) Influenza Type B (PCR) (Not Detectd) 02/23/19 02/23/19 02/23/19 Range/Units 20:44 20:44 22:29 WBC (3.8-10.6) k/uL RBC (3.80-5.40) m/uL Hgb (11.4-16.0) gm/dL Hct (34.0-46.0) % MCV (80.0-100.0) fL MCH (25.0-35.0) pg MCHC (31.0-37.0) g/dL RDW (11.5-15.5) % Plt Count (150-450) k/uL Neutrophils % % Lymphocytes % % Monocytes % % Eosinophils % % Basophils % % Neutrophils # (1.3-7.7) k/uL Lymphocytes # (1.0-4.8) k/uL Monocytes # (0-1.0) k/uL Eosinophils # (0-0.7) k/uL Basophils # (0-0.2) k/uL Hypochromasia Poikilocytosis PT 11.3 (9.0-12.0) sec INR 1.1 (<1.2) APTT 27.4 (22.0-30.0) sec Sodium (137-145) mmol/L Potassium (3.5-5.1) mmol/L Chloride (98-107) mmol/L Carbon Dioxide (22-30) mmol/L Anion Gap mmol/L BUN (7-17) mg/dL Creatinine (0.52-1.04) mg/dL Est GFR (CKD-EPI)AfAm (>60 ml/min/1.73 sqM) Est GFR (CKD-EPI)NonAf (>60 ml/min/1.73 sqM) Glucose (74-99) mg/dL Plasma Lactic Acid James (0.7-2.0) mmol/L Calcium (8.4-10.2) mg/dL Phosphorus (2.5-4.5) mg/dL Magnesium (1.6-2.3) mg/dL Total Bilirubin (0.2-1.3) mg/dL AST (14-36) U/L ALT (9-52) U/L Alkaline Phosphatase (38-126) U/L Creatine Kinase (30-135) U/L Troponin I <0.012 (0.000-0.034) ng/mL Total Protein (6.3-8.2) g/dL Albumin (3.5-5.0) g/dL Influenza Type A RNA Not Detected (Not Detectd) Influenza Type B (PCR) Not Detected (Not Detectd) - Radiology Data Radiology results: report reviewed (Chest x-rays negative for acute disease), image reviewed Disposition Clinical Impression: Fever, Dehydration, End stage renal disease on dialysis Narrative: Fever Unknown Origin Disposition: ADMITTED IP TO THIS HOSP Condition: Fair Is patient prescribed a controlled substance at d/c from ED?: No Referrals: Jerome Ring MD [Medical Doctor] - 1-2 days
[2019-02-23 21:31] LABS: Basophils # (A) 0.1 k/uL (0-0.2); Basophils % (A) 1 %; Eosinophils # (A) 0.2 k/uL (0-0.7); Eosinophils % (A) 2 %; HCT 30.7 % (34.0-46.0); HGB 9.6 gm/dL (11.4-16.0); Hypochromasia Marked; Lymphocytes # (A) 0.5 k/uL (1.0-4.8); Lymphocytes % (A) 4 %; MCH 27.8 pg (25.0-35.0); MCHC 31.3 g/dL (31.0-37.0); MCV 88.7 fL (80.0-100.0); Mean Platelet Volume 8.9; Monocytes # (A) 0.4 k/uL (0-1.0); Monocytes % (A) 3 %; Neutrophils # (A) 12.7 k/uL (1.3-7.7); Neutrophils % (A) 90 %; Platelet Count 272 k/uL (150-450); Poikilocytosis Slight; RBC 3.46 m/uL (3.80-5.40); RDW 15.7 % (11.5-15.5); WBC 14.1 k/uL (3.8-10.6)
--- NOTE | 2019-02-23 21:35 | XR ---
EXAMINATION TYPE: XR chest 2V DATE OF EXAM: 02/23/2019 COMPARISON: 11/08/2018 HISTORY: Altered mental status TECHNIQUE: Frontal and lateral views of the chest are obtained. FINDINGS: Heart appears slightly enlarged. There is mild blunting of the posterior costophrenic angl es. There are no hilar masses. There are chest leads. IMPRESSION: Small pleural effusions or pleural reaction at the lung bases appear new compared to las t exam. No obvious heart failure.
[2019-02-23 21:39] LABS: INR 1.1 (<1.2); Partial Thromboplastin Time 27.4 sec (22.0-30.0); Prothrombin Time 11.3 sec (9.0-12.0)
[2019-02-23 21:42] LABS: Albumin 2.9 g/dL (3.5-5.0); Calcium 6.8 mg/dL (8.4-10.2); Magnesium 1.4 mg/dL (1.6-2.3); Phosphorus 4.4 mg/dL (2.5-4.5); Potassium 3.2 mmol/L (3.5-5.1); Total Bilirubin 0.3 mg/dL (0.2-1.3); Total Protein 5.8 g/dL (6.3-8.2)
[2019-02-23] MEDS ORDERED: VANCOMYCIN IV PER PHARMACY 1 EACH MISC MISCELLANE PRN (23:12)
[2019-02-23] MEDS ORDERED: PIPERACILLIN-TAZOBACTAM 3.375 GM in SODIUM CHLORIDE 0.9% 100 ML IVPB STA (23:12)
[2019-02-23] MEDS ORDERED: VANCOMYCIN 1,750 MG in SODIUM CHLORIDE 0.9% 500 ML 500 ML IVPB STA (23:19)
[2019-02-23] MEDS: SODIUM CHLORIDE 0.9% 1,000 ML IV SCH (23:41)
[2019-02-24 00:52] LABS: Glucose,Whole Blood 196 mg/dL (75-99)
[2019-02-24] MEDS: DIALYSIS (PERIT 2.5%) 2,500 ML 62.5 G/2,500 ML BAG INTRAPERIT SCH ×3 (06:04→17:49)
[2019-02-24] MEDS: SODIUM CHLORIDE 0.9% 1,000 ML IV SCH (06:05)
[2019-02-24 06:53] LABS: Glucose,Whole Blood 231 mg/dL (75-99)
[2019-02-24] MEDS ORDERED: ENOXAPARIN 30 MG/0.3 ML SYRINGE SQ SCH (09:00)
[2019-02-24] MEDS: INSULIN ASPART (NovoLOG) 100 UNIT/ML VIAL SQ SCH ×4 (09:12→20:32)
[2019-02-24 09:49] LABS: Calcium 6.3 mg/dL (8.4-10.2)
[2019-02-24] MEDS ORDERED: POTASSIUM CHLORIDE ER 20 MEQ TAB.ER PO STA (11:25)
--- NOTE | 2019-02-24 11:35 | P.NPCON ---
History of Present Illness - Reason for Consult end stage renal disease - History of Present Illness Reason for consultation: End-stage renal disease History of present illness: Patient is a 63-year-old female seen in renal consultation for end-stage renal disease. She is maintained on peritoneal dialysis. Patient presents to the hospital due to generalized weakness. She was also noted to be febrile. Her temperature was 102F on admission. She is currently maintained on IV Zosyn. She also received a dose of IV vancomycin on admission. She denies chest pain or shortness of breath. Does admit to edema in her lower extremity. She does have history of right below the knee dictation. No vomiting or diarrhea. She does admit to a nonproductive cough. No abdominal pain. Denies cloudy dialy sate. Oral intake is fair. Patient states last bowel movement was last or Sunday. Vital signs are stable. General: The patient appeared well nourished and normally developed. HEENT: Head exam is unremarkable. Neck is without jugular venous distension. LUNGS: Lungs are clear to auscultation and percussion. Breath sounds decreased. HEART: Rate and Rhythm are regular. First and second heart sounds normal. No murmurs, rubs or gallops. ABDOMEN: Abdominal exam reveals normal bowel sounds. Soft. Nontender. EXTREMITITES: 1+ edema. Right BKA noted. Past Medical History Past Medical History: Diabetes Mellitus, Dialysis, GERD/Reflux, Hyperlipidemia, Hypertension, Memory Impairment, Renal Disease, Thyroid Disorder Additional Past Medical History / Comment(s): peritoneal dialysis daily over night. hx stil syndrome left hand-please use rt arm/hand for iv, blood draws. diabetic neuropathy and diabetic retinopathy, Rt BKA uses prosthesis History of Any Multi-Drug Resistant Organisms: MRSA Date of last positivie culture/infection: 2015 MDRO Source:: rt foot Past Surgical History: Back Surgery, Hysterectomy Additional Past Surgical History / Comment(s): RBKA 01/23/16 R/T DM. neck cervical 4,5,6 fused. graft tie off 04/05/2017, eye laser surgery for diabetic retinopathy Past Anesthesia/Blood Transfusion Reactions: No Reported Reaction Past Psychological History: Anxiety, Depression Additional Psychological History / Comment(s): Single. Retired. No current tobacco or alcohol use. No experience. International travel. No animal exposures Smoking Status: Never smoker Past Alcohol Use History: None Reported Additional Past Alcohol Use History / Comment(s): smoked 25 years 1pack/wk quit 2002. Past Drug Use History: None Reported - Past Family History Mother Family Medical History: Diabetes Mellitus, Hypertension Additional Family Medical History / Comment(s): colon ca Father Family Medical History: Myocardial Infarction ([place]) Medications and Allergies Home Medications Medication Instructions Recorded Confirmed Type Levothyroxine Sodium [Synthroid] 75 mcg PO DAILY 10/09/16 02/23/19 History Pantoprazole [Protonix] 40 mg PO DAILY 10/09/16 02/23/19 History Pravastatin Sodium [Pravachol] 20 mg PO DAILY 10/09/16 02/23/19 History Calcium Acetate [PhosLo] 667 mg PO AC-TID 03/11/17 02/23/19 History Clopidogrel [Plavix] 75 mg PO DAILY 03/11/17 02/23/19 History Rosio-Thomas 1 tab PO DAILY 03/11/17 02/23/19 History Meclizine [Antivert] 25 mg PO TID PRN 04/26/17 02/23/19 History Acetaminophen Tab [Tylenol] 1,000 mg PO Q8H PRN 04/23/18 02/23/19 History Furosemide [Lasix] 80 mg PO BID 04/23/18 02/23/19 History Lactulose [Cephulac] 10 gm PO TID PRN #0 ml 11/15/18 02/23/19 Rx Metoprolol Tartrate [Lopressor] 25 mg PO BID #0 tab 11/15/18 02/23/19 Rx Fluticasone Nasal [place] [Flonase 1 spray EA NOSTRIL BID 01/04/19 02/23/19 History Nasal [place]] HYDROcodone/APAP 5-325MG [[place] 1 tab PO Q6HR PRN 01/04/19 02/23/19 History 5-325] Loperamide [Imodium] 2 mg PO QID PRN 01/04/19 02/23/19 History Pregabalin [Lyrica] 50 mg PO BID 01/04/19 02/23/19 History Apixaban [Eliquis] 2.5 mg PO BID 02/23/19 02/23/19 History Allergies Allergy/AdvReac Type Severity Reaction Status Date / Time gabapentin Allergy Rash/Hives Verified 02/23/19 21:32 lisinopril AdvReac Cough Verified 02/23/19 21:32 Physical Exam Vitals: Vital Signs Temp Pulse Pulse Resp BP BP Pulse Ox 02/24/19 07:00 98.0 F 61 15 118/70 93 L 02/24/19 06:05 97.5 F L 61 18 106/64 100 02/24/19 00:39 97.9 F 66 15 114/67 100 02/23/19 23:42 68 17 121/50 100 02/23/19 23:40 98.8 F 02/23/19 23:07 71 18 101/46 93 L 02/23/19 21:45 99.6 F 02/23/19 20:31 102 F H 82 18 143/70 96 Intake and Output 02/23/19 02/24/19 02/24/19 22:59 06:59 14:59 Intake Total 760 Balance 760 Intake: Intake, IV Titration 760 Amount Sodium Chloride 0.9% 1, 260 000 ml @ 130 mls/hr IV . Q7H42M [facility] Rx#:[id number] Vancomycin 1,750 mg In 500 Sodium Chloride 0.9% 500 ml 500 ml @ 167 mls/hr IVPB ONCE [facility] Rx#: [id number] Other: Voiding Method CAPD Weight 117.934 kg Results - Lab Results Most recent lab results Calcium 6.3 mg/dL (8.4-10.2) L* 02/24/19 09:11 Phosphorus 4.4 mg/dL (2.5-4.5) 02/23/19 20:44 Magnesium 1.4 mg/dL (1.6-2.3) L 02/23/19 20:44 02/23/19 20:44 02/24/19 09:11 Assessment and Plan Plan: Assessment: 1. End-stage renal disease maintained on peritoneal dialysis. 2. Hypokalemia from poor oral intake and PD losses. 3. Fever. Unclear cause. Rule out peritonitis. Influenza screen negative. Currently on IV Zosyn. Also received IV vancomycin this morning. 4. Insulin-dependent diabetes mellitus. 5. Anemia of chronic kidney disease. Rule out iron deficiency. 6. Hypocalcemia secondary to chronic kidney disease. 7. Chronic kidney disease mineral bone disease. 8. Constipation. 9. Hypomagnesemia from poor oral intake. 10. Fluid overload. Plan: Maintain current PD exchanges. Replace potassium. 60 meq once today. 1 g IV calcium gluconate today. Replace magnesium. 2 g IV today. Resume PhosLo with meals. Follow-up dialysate cell count and fluid culture. Add lactulose 3 times daily as needed for constipation. Check iron studies. Hep-Lock IV fluids. Add Lasix 80 mg orally twice daily. Thank you for the consultation. I will continue to follow the patient is due during her hospital stay.
[2019-02-24 11:48] LABS: Glucose,Whole Blood 246 mg/dL (75-99)
[2019-02-24] MEDS ORDERED: CALCIUM GLUCONATE 1 GM in SODIUM CHLORIDE 0.9% 100 ML IVPB ONE (12:00)
[2019-02-24] MEDS: CALCIUM ACETATE 667 MG TAB PO SCH ×2 (12:07→17:13)
[2019-02-24] MEDS: MAGNESIUM SULFATE-D5W PMX 1 GM in DEXTROSE/WATER 1 100ML.BAG IVPB SCH ×2 (12:07→19:26)
[2019-02-24] MEDS ORDERED: HYDROcodone/APAP 5-325MG 1 EACH TAB PO PRN (12:14)
[2019-02-24] MEDS ORDERED: INSULIN ASPART (NovoLOG) 100 UNIT/ML VIAL SQ SCH (12:30)
[2019-02-24] MEDS: LACTULOSE 20 GM/30 ML CUP PO PRN (13:21)
[2019-02-24] MEDS: PIPERACILLIN-TAZOBACTAM 3.375 GM in SODIUM CHLORIDE 0.9% 100 ML IVPB SCH ×2 (14:29→23:58)
[2019-02-24 15:34] LABS: Appearance,BF Clear; Color,BF Colorless; Nucleated Cells, Body Fluid 10 /uL; RBC, Body Fluid 16 /uL
--- NOTE | 2019-02-24 15:44 | P.CONS ---
History of Present Illness - Chief Complaint Medical debility - History of Present Illness I had the opportunity to see patient for inpatient rehab consultation with regard to medical debility. She was admitted to [facility] February 23 with weakness and fever. Seen by Dr. Chu for end-stage renal failure requiring peritoneal dialysis. Chest x-ray demonstrated small pleural effusions. His started therapy. PT reports minimal moderate assistance functional mobility and transfers and minimal assistance for gait 6 feet with roller walker, fatigues quickly and requires second person for safety. OT reports minimal assistance for upper dressing, maximal assistance for lower dressing, moderate assistance for bathing and toileting and minimal assistance for transfers with second person for safety. Previous functional history as elicited from patient: 63-year-old right-handed female who is single lives in one floor flat alone. On disability related to right BKA and end-stage renal failure. Describes independent with simple cooking, laundry, sitdown shower. Uses wheelchair and prosthesis for mobility. Hasn't driven since September, was at [facility] for rehab. Patient has a niece who helps her out. Regular doctor is now Dr. Dale. Denies tobacco or alcohol. Family history of mother with cancer and diabetes. Review of Systems Review of systems: ENT: Denies sneezes or discharge. Eyes: Denies discharge or photophobia. Cardiac: Denies chest pain or palpitation. Pulmonary: Denies cough or shortness of breath. Breast: Denies discharge or lumps. Gastrointestinal: Denies nausea, emesis, constipation, diarrhea. Genitourinary: Denies discharge or frequency. Musculoskeletal: Denies muscle or bone aches. Neurologic: At least moderately severely weak throughout. Endocrine: Denies shakes or sweats. Oncology: Denies cancers. Dermatologic: Denies rash, itching, pruritus. ALLERGY/immunology: Denies sneezes, rashes. Past Medical History Past Medical History: Diabetes Mellitus, Dialysis, GERD/Reflux, Hyperlipidemia, Hypertension, Memory Impairment, Renal Disease, Thyroid Disorder Additional Past Medical History / Comment(s): peritoneal dialysis daily over night. hx stil syndrome left hand-please use rt arm/hand for iv, blood draws. diabetic neuropathy and diabetic retinopathy, Rt BKA uses prosthesis History of Any Multi-Drug Resistant Organisms: MRSA Year Discovered:: 2016 MDRO Source:: rt foot Past Surgical History: Back Surgery, Hysterectomy Additional Past Surgical History / Comment(s): RBKA 01/23/16 R/T DM. neck cervical 4,5,6 fused. graft tie off 04/05/2017, eye laser surgery for diabetic retinopathy Past Anesthesia/Blood Transfusion Reactions: No Reported Reaction Past Psychological History: Anxiety, Depression Additional Psychological History / Comment(s): Single. Retired. No current tobacco or alcohol use. No experience. International travel. No animal exposures Smoking Status: Never smoker Past Alcohol Use History: None Reported Additional Past Alcohol Use History / Comment(s): smoked 25 years 1pack/wk quit 2002. Past Drug Use History: None Reported - Past Family History Mother Family Medical History: Diabetes Mellitus, Hypertension Additional Family Medical History / Comment(s): colon ca Father Family Medical History: Myocardial Infarction ([place]) Medications and Allergies Home Medications Medication Instructions Recorded Confirmed Type Levothyroxine Sodium [Synthroid] 75 mcg PO DAILY 10/09/16 02/23/19 History Pantoprazole [Protonix] 40 mg PO DAILY 10/09/16 02/23/19 History Pravastatin Sodium [Pravachol] 20 mg PO DAILY 10/09/16 02/23/19 History Calcium Acetate [PhosLo] 667 mg PO AC-TID 03/11/17 02/23/19 History Clopidogrel [Plavix] 75 mg PO DAILY 03/11/17 02/23/19 History Rosio-Thomas 1 tab PO DAILY 03/11/17 02/23/19 History Meclizine [Antivert] 25 mg PO TID PRN 04/26/17 02/23/19 History Acetaminophen Tab [Tylenol] 1,000 mg PO Q8H PRN 04/23/18 02/23/19 History Furosemide [Lasix] 80 mg PO BID 04/23/18 02/23/19 History Lactulose [Cephulac] 10 gm PO TID PRN #0 ml 11/15/18 02/23/19 Rx Metoprolol Tartrate [Lopressor] 25 mg PO BID #0 tab 11/15/18 02/23/19 Rx Fluticasone Nasal [place] [Flonase 1 spray EA NOSTRIL BID 01/04/19 02/23/19 History Nasal [place]] HYDROcodone/APAP 5-325MG [[place] 1 tab PO Q6HR PRN 01/04/19 02/23/19 History 5-325] Loperamide [Imodium] 2 mg PO QID PRN 01/04/19 02/23/19 History Pregabalin [Lyrica] 50 mg PO BID 01/04/19 02/23/19 History Apixaban [Eliquis] 2.5 mg PO BID 02/23/19 02/23/19 History Allergies Allergy/AdvReac Type Severity Reaction Status Date / Time gabapentin Allergy Rash/Hives Verified 02/23/19 21:32 lisinopril AdvReac Cough Verified 02/23/19 21:32 Physical Exam Vitals: Vital Signs Temp Pulse Pulse Resp BP BP Pulse Ox 02/24/19 15:00 98.1 F 65 16 120/71 94 L 02/24/19 07:00 98.0 F 61 15 118/70 93 L 02/24/19 06:05 97.5 F L 61 18 106/64 100 02/24/19 00:39 97.9 F 66 15 114/67 100 02/23/19 23:42 68 17 121/50 100 02/23/19 23:40 98.8 F 02/23/19 23:07 71 18 101/46 93 L 02/23/19 21:45 99.6 F 02/23/19 20:31 102 F H 82 18 143/70 96 Intake and Output 02/24/19 02/24/19 02/24/19 06:59 14:59 22:59 Intake Total 760 Output Total 150 Balance 760 -150 Intake: Intake, IV Titration 760 Amount Sodium Chloride 0.9% 1, 260 000 ml @ 130 mls/hr IV . Q7H42M [facility] Rx#:[id number] Vancomycin 1,750 mg In 500 Sodium Chloride 0.9% 500 ml 500 ml @ 167 mls/hr IVPB ONCE [facility] Rx#: [id number] Output: Urine 150 Other: Voiding Method CAPD # Voids 1 # Bowel Movements 1 Skin: Good color, texture, turgor. General: Obese build and comfortable appearance. Head: Normocephalic, atraumatic. Eyes: Symmetric. Pupils equal round. Ears: Symmetric. Hearing within normal limits. Mouth: Clear. Neck: Supple. Carotid without bruit. Cardiac: Regular rate and rhythm. Lungs: Clear anteriorly and posteriorly. Abdomen: Soft active nontender. Extremities: Normal tone. Right leg significant for old well-healed BKA, currently in prosthetic liner. Neurological: Mental status: Alert, cooperative, pleasant. Cranial nerves: Symmetric facial tone and trapezius. Motor: Normal strength and isolation all 4 limbs. Sensation: Intact throughout. DTRs: Symmetric and equal throughout. Mobility: Requires assistance for bed mobility. Results CBC & Chem 7: 02/23/19 20:44 02/24/19 09:11 Labs: Abnormal Lab Results - Last 24 Hours (Table) 02/23/19 02/23/19 02/24/19 Range/Units 20:44 20:44 00:38 WBC 14.1 H (3.8-10.6) k/uL RBC 3.46 L (3.80-5.40) m/uL Hgb 9.6 L (11.4-16.0) gm/dL Hct 30.7 L (34.0-46.0) % RDW 15.7 H (11.5-15.5) % Neutrophils # 12.7 H (1.3-7.7) k/uL Lymphocytes # 0.5 L (1.0-4.8) k/uL Potassium 3.2 L (3.5-5.1) mmol/L BUN 56 H (7-17) mg/dL Creatinine 12.64 H* (0.52-1.04) mg/dL Glucose 232 H (74-99) mg/dL POC Glucose (mg/dL) 196 H (75-99) mg/dL Calcium 6.8 L (8.4-10.2) mg/dL Phosphorus (2.5-4.5) mg/dL Magnesium 1.4 L (1.6-2.3) mg/dL AST 13 L (14-36) U/L Creatine Kinase 137 H (30-135) U/L Total Protein 5.8 L (6.3-8.2) g/dL Albumin 2.9 L (3.5-5.0) g/dL 02/24/19 02/24/19 02/24/19 Range/Units 06:51 09:11 09:11 WBC (3.8-10.6) k/uL RBC (3.80-5.40) m/uL Hgb (11.4-16.0) gm/dL Hct (34.0-46.0) % RDW (11.5-15.5) % Neutrophils # (1.3-7.7) k/uL Lymphocytes # (1.0-4.8) k/uL Potassium 3.0 L (3.5-5.1) mmol/L BUN 59 H (7-17) mg/dL Creatinine 12.66 H* (0.52-1.04) mg/dL Glucose 222 H (74-99) mg/dL POC Glucose (mg/dL) 231 H (75-99) mg/dL Calcium 6.3 L* (8.4-10.2) mg/dL Phosphorus 5.2 H (2.5-4.5) mg/dL Magnesium (1.6-2.3) mg/dL AST (14-36) U/L Creatine Kinase (30-135) U/L Total Protein (6.3-8.2) g/dL Albumin (3.5-5.0) g/dL 02/24/19 Range/Units 11:26 WBC (3.8-10.6) k/uL RBC (3.80-5.40) m/uL Hgb (11.4-16.0) gm/dL Hct (34.0-46.0) % RDW (11.5-15.5) % Neutrophils # (1.3-7.7) k/uL Lymphocytes # (1.0-4.8) k/uL Potassium (3.5-5.1) mmol/L BUN (7-17) mg/dL Creatinine (0.52-1.04) mg/dL Glucose (74-99) mg/dL POC Glucose (mg/dL) 246 H (75-99) mg/dL Calcium (8.4-10.2) mg/dL Phosphorus (2.5-4.5) mg/dL Magnesium (1.6-2.3) mg/dL AST (14-36) U/L Creatine Kinase (30-135) U/L Total Protein (6.3-8.2) g/dL Albumin (3.5-5.0) g/dL Assessment and Plan (1) Fever Current Visit: Yes Status: Acute Code(s): R50.9 - FEVER, UNSPECIFIED SNOMED Code(s): 446585514 (2) End stage renal disease on dialysis Current Visit: Yes Status: Chronic Priority: High Code(s): N18.6 - END STAGE RENAL DISEASE; Z99.2 - DEPENDENCE ON RENAL DIALYSIS SNOMED Code(s): 846578464 (3) Diabetic ulcer of foot with fat layer exposed Current Visit: No Status: Acute Code(s): E11.621 - TYPE 2 DIABETES MELLITUS WITH FOOT ULCER; L97.502 - NON-PRS CHRONIC ULCER OTH PRT UNSP FOOT W FAT LAYER EXPOSED SNOMED Code(s): 080595106 Plan: Impression: 1. Medical debility. 2. Fever. 3. Old right BKA. 3. Left foot ulcer. 5. Diabetes. 6. Hypertension. 7. End-stage renal failure requiring. Hemodialysis. 8. Memory impairment. 9. Morbid obesity. Some plan: At this time PT and OT are ongoing. Safety concerns noted. Seems to have demonstrated ability tolerate and benefit from therapy. Does have supportive needs for discharge planning. At this time would anticipate need and benefit of inpatient rehab.
--- NOTE | 2019-02-24 16:25 | P.HPIM ---
History of Present Illness [id number]old female with the known history of end-stage renal disease and peritoneal dialysis and was recently treated for peritonitis still on vancomycin came in with complaints of fever and chills patient is found to have white blood cell count patient is found to be septic patient chest x-ray did not show any pneumonia patient barely makes urine peritoneal dialysis fluid is clear doesn't appear to be infected although fluid is sent for analysis and that's probably the source of infection patient denied any increased abdominal pain at this time. Sections disease was consulted patient was started on vancomycin and the Zosyn at this time. Patient is much feeling much better today patient was quite fatigued yesterday. Review of Systems REVIEW OF SYSTEMS: CONSTITUTIONAL: As mentioned in HPI HEENT: No recent visual problems or hearing problems. Denied any sore throat. CARDIOVASCULAR: No chest pain, orthopnea, PND, no palpitations, no syncope. PULMONARY: No shortness of breath, no cough, no hemoptysis. GASTROINTESTINAL: No diarrhea, no nausea, no vomiting, no abdominal pain. NEUROLOGICAL: No headaches, no weakness, no numbness. HEMATOLOGICAL: Denies any bleeding or petechiae. GENITOURINARY: Denies any burning micturition, frequency, or urgency. MUSCULOSKELETAL/RHEUMATOLOGICAL: Denies any joint pain, swelling, or any muscle pain. ENDOCRINE: Denies any polyuria or polydipsia. The rest of the 14-point review of systems is negative. Past Medical History Past Medical History: Diabetes Mellitus, Dialysis, GERD/Reflux, Hyperlipidemia, Hypertension, Memory Impairment, Renal Disease, Thyroid Disorder Additional Past Medical History / Comment(s): peritoneal dialysis daily over night. hx stil syndrome left hand-please use rt arm/hand for iv, blood draws. diabetic neuropathy and diabetic retinopathy, Rt BKA uses prosthesis History of Any Multi-Drug Resistant Organisms: MRSA Date of last positivie culture/infection: 2015 MDRO Source:: rt foot Past Surgical History: Back Surgery, Hysterectomy Additional Past Surgical History / Comment(s): RBKA 01/23/16 R/T DM. neck cervical 4,5,6 fused. graft tie off 04/05/2017, eye laser surgery for diabetic retinopathy Past Anesthesia/Blood Transfusion Reactions: No Reported Reaction Past Psychological History: Anxiety, Depression Additional Psychological History / Comment(s): Single. Retired. No current tobacco or alcohol use. No experience. International travel. No animal exposures Smoking Status: Never smoker Past Alcohol Use History: None Reported Additional Past Alcohol Use History / Comment(s): smoked 25 years 1pack/wk quit 2002. Past Drug Use History: None Reported - Past Family History Mother Family Medical History: Diabetes Mellitus, Hypertension Additional Family Medical History / Comment(s): colon ca Father Family Medical History: Myocardial Infarction ([place]) Medications and Allergies Home Medications Medication Instructions Recorded Confirmed Type Levothyroxine Sodium [Synthroid] 75 mcg PO DAILY 10/09/16 02/23/19 History Pantoprazole [Protonix] 40 mg PO DAILY 10/09/16 02/23/19 History Pravastatin Sodium [Pravachol] 20 mg PO DAILY 10/09/16 02/23/19 History Calcium Acetate [PhosLo] 667 mg PO AC-TID 03/11/17 02/23/19 History Clopidogrel [Plavix] 75 mg PO DAILY 03/11/17 02/23/19 History Rosio-Thomas 1 tab PO DAILY 03/11/17 02/23/19 History Meclizine [Antivert] 25 mg PO TID PRN 04/26/17 02/23/19 History Acetaminophen Tab [Tylenol] 1,000 mg PO Q8H PRN 04/23/18 02/23/19 History Furosemide [Lasix] 80 mg PO BID 04/23/18 02/23/19 History Lactulose [Cephulac] 10 gm PO TID PRN #0 ml 11/15/18 02/23/19 Rx Metoprolol Tartrate [Lopressor] 25 mg PO BID #0 tab 11/15/18 02/23/19 Rx Fluticasone Nasal [place] [Flonase 1 spray EA NOSTRIL BID 01/04/19 02/23/19 History Nasal [place]] HYDROcodone/APAP 5-325MG [[place] 1 tab PO Q6HR PRN 01/04/19 02/23/19 History 5-325] Loperamide [Imodium] 2 mg PO QID PRN 01/04/19 02/23/19 History Pregabalin [Lyrica] 50 mg PO BID 01/04/19 02/23/19 History Apixaban [Eliquis] 2.5 mg PO BID 10/27/19 10/27/19 History Allergies Allergy/AdvReac Type Severity Reaction Status Date / Time gabapentin Allergy Rash/Hives Verified 02/23/19 21:32 lisinopril AdvReac Cough Verified 02/23/19 21:32 Physical Exam Vitals: Vital Signs Temp Pulse Pulse Resp BP BP Pulse Ox 02/24/19 15:00 98.1 F 65 16 120/71 94 L 02/24/19 07:00 98.0 F 61 15 118/70 93 L 02/24/19 06:05 97.5 F L 61 18 106/64 100 02/24/19 00:39 97.9 F 66 15 114/67 100 02/23/19 23:42 68 17 121/50 100 02/23/19 23:40 98.8 F 02/23/19 23:07 71 18 101/46 93 L 02/23/19 21:45 99.6 F 02/23/19 20:31 102 F H 82 18 143/70 96 Intake and Output 02/24/19 02/24/19 02/24/19 06:59 14:59 22:59 Intake Total 760 Output Total 150 Balance 760 -150 Intake: Intake, IV Titration 760 Amount Sodium Chloride 0.9% 1, 260 000 ml @ 130 mls/hr IV . Q7H42M [facility] Rx#:[id number] Vancomycin 1,750 mg In 500 Sodium Chloride 0.9% 500 ml 500 ml @ 167 mls/hr IVPB ONCE [facility] Rx#: [id number] Output: Urine 150 Other: Voiding Method CAPD # Voids 1 # Bowel Movements 1 PHYSICAL EXAMINATION: GENERAL: The patient is alert and oriented x3, not in any acute distress. Obese HEENT: Pupils are round and equally reacting to light. EOMI. No scleral icterus. No conjunctival pallor. Normocephalic, atraumatic. No pharyngeal erythema. No thyromegaly. CARDIOVASCULAR: S1 and S2 present. No murmurs, rubs, or gallops. PULMONARY: Chest is clear to auscultation, no wheezing or crackles. ABDOMEN: distended nontender normoactive bowel sounds. No palpable or ganomegaly. MUSCULOSKELETAL: No joint swelling or deformity. EXTREMITIES: No cyanosis, clubbing, or pedal edema on the left side. Below-knee amputation on the right side NEUROLOGICAL: Gross neurological examination did not reveal any focal deficits. SKIN: No rashes. Results CBC & Chem 7: 02/23/19 20:44 02/24/19 09:11 Labs: Abnormal Lab Results - Last 24 Hours (Table) 02/23/19 02/23/19 02/24/19 Range/Units 20:44 20:44 00:38 WBC 14.1 H (3.8-10.6) k/uL RBC 3.46 L (3.80-5.40) m/uL Hgb 9.6 L (11.4-16.0) gm/dL Hct 30.7 L (34.0-46.0) % RDW 15.7 H (11.5-15.5) % Neutrophils # 12.7 H (1.3-7.7) k/uL Lymphocytes # 0.5 L (1.0-4.8) k/uL Potassium 3.2 L (3.5-5.1) mmol/L BUN 56 H (7-17) mg/dL Creatinine 12.64 H* (0.52-1.04) mg/dL Glucose 232 H (74-99) mg/dL POC Glucose (mg/dL) 196 H (75-99) mg/dL Calcium 6.8 L (8.4-10.2) mg/dL Phosphorus (2.5-4.5) mg/dL Magnesium 1.4 L (1.6-2.3) mg/dL AST 13 L (14-36) U/L Creatine Kinase 137 H (30-135) U/L Total Protein 5.8 L (6.3-8.2) g/dL Albumin 2.9 L (3.5-5.0) g/dL 02/24/19 02/24/19 02/24/19 Range/Units 06:51 09:11 09:11 WBC (3.8-10.6) k/uL RBC (3.80-5.40) m/uL Hgb (11.4-16.0) gm/dL Hct (34.0-46.0) % RDW (11.5-15.5) % Neutrophils # (1.3-7.7) k/uL Lymphocytes # (1.0-4.8) k/uL Potassium 3.0 L (3.5-5.1) mmol/L BUN 59 H (7-17) mg/dL Creatinine 12.66 H* (0.52-1.04) mg/dL Glucose 222 H (74-99) mg/dL POC Glucose (mg/dL) 231 H (75-99) mg/dL Calcium 6.3 L* (8.4-10.2) mg/dL Phosphorus 5.2 H (2.5-4.5) mg/dL Magnesium (1.6-2.3) mg/dL AST (14-36) U/L Creatine Kinase (30-135) U/L Total Protein (6.3-8.2) g/dL Albumin (3.5-5.0) g/dL 02/24/19 Range/Units 11:26 WBC (3.8-10.6) k/uL RBC (3.80-5.40) m/uL Hgb (11.4-16.0) gm/dL Hct (34.0-46.0) % RDW (11.5-15.5) % Neutrophils # (1.3-7.7) k/uL Lymphocytes # (1.0-4.8) k/uL Potassium (3.5-5.1) mmol/L BUN (7-17) mg/dL Creatinine (0.52-1.04) mg/dL Glucose (74-99) mg/dL POC Glucose (mg/dL) 246 H (75-99) mg/dL Calcium (8.4-10.2) mg/dL Phosphorus (2.5-4.5) mg/dL Magnesium (1.6-2.3) mg/dL AST (14-36) U/L Creatine Kinase (30-135) U/L Total Protein (6.3-8.2) g/dL Albumin (3.5-5.0) g/dL Microbiology - Last 24 Hours (Table) 02/24/19 09:00 Body Fluid Culture - Preliminary Peritoneal Fluid Thrombosis Risk Factor Assmnt - Choose All That Apply Any of the Below Risk Factors Present?: No Other Risk Factors: Yes Each Risk Factor Represents 2 Points: Age 61-74 years Thrombosis Risk Factor Assessment Total Risk Factor Score: 2 Thrombosis Risk Factor Assessment Level: Low Risk Assessment and Plan Plan: -Sepsis possible source the being peritonitis again. From a respiratory dialysis catheter site from antibiotics Zosyn and vancomycin in the infectious disease will evaluate the patient for peroneal dialysis fluid is sent for culture analysis along with blood culture. -End-stage renal disease on peritoneal dialysis nephrology evaluate the patient and patient is being continued on peritoneal dialysis at this time -Insulin-dependent diabetes mellitus uncontrolled blood sugars and elevated blood sugars will continue with home regimen along with the sliding scale insulin titration depending on the blood sugars here. -Anemia of chronic disease -Hypocalcemia secondary to metabolic bone disease from a end-stage renal disease Supplementation and Phosphate Binders Will Be Continued -Hypomagnesemia Secondary to Poor Peripheral Intake -Hypothyroidism -Gastroesophageal Reflux Disease -Depression -Diabetic Neuropathy Retinopathy Status Post BKA on the Right Side with Prosthesis Patient Is on Anticoagulation unsure why she is on anticoagulation s
[2019-02-24 17:12] LABS: Glucose,Whole Blood 244 mg/dL (75-99)
[2019-02-24] MEDS: FUROSEMIDE 80 MG TAB PO SCH (17:13)
[2019-02-24 17:14] LABS: % Iron Saturation 5.92 (12.00-45.00)
[2019-02-24 20:22] LABS: Glucose,Whole Blood 232 mg/dL (75-99)
[2019-02-24] MEDS: PREGABALIN 50 MG CAP PO SCH (20:32)
[2019-02-24] MEDS: APIXABAN 2.5 MG TABLET PO SCH (20:32)
[2019-02-24] MEDS: METOPROLOL TARTRATE 25 MG TAB PO SCH (20:32)
--- NOTE | 2019-02-24 22:23 | P.CONS ---
History of Present Illness - Reason for Consult Consult date: 02/24/19 - Chief Complaint weakness - History of Present Illness 63-year-old woman who has a history of known end-stage renal disease who was treated via hemodialysis. The fistula was placed into her left arm however this resulted in significant debility to her left arm and could not tolerate hemodialysis. Constantly she was placed on peritoneal dialysis with the cycler. She was doing modestly well utilizing the cycler. She was having some fluid overload and some changes were performed. There was a difficulty with her CAPD catheter and she had a short bout of peritonitis in October which rapidly responded. The patient relates since then she's just been having ongoing decline in her status. Feeling weaker over time. She is not the point in which is having difficulty even navigating around her house. Appetite is poor. She does not believe the fluid that she was draining after her dwells is having any cloudiness or blood. She over did develop a fever and because she was feeling so poorly she presented to the emergency center. A fever was noted and she was admitted. She was initiated antibiotic therapy with vancomycin and then Zosyn was added pending further data. She relates that she feels very poorly. She has generalized weakness she has difficulty getting up to go to the bathroom because she feels so weak. She has not had syncope. Her appetite is poor. She relates that she does not make much urine when she does there is some discomfort but she does not believe this is very new. She does relate that she has some congestion and a minimal cough at times. Review of Systems HEENT: She's had some headache but patient has not been acutely changed Denies sinus or mouth discomforts. Denies neck stiffness or pain. Denies significant oral cavity pain. Denies difficulty on swallowing. Lungs: She's had a mild cough. Sputum production or hemoptysis Cardiovascular: She denying chest pain but relates that she has poor exercise tolerance she has generalized weakness Gastrointestinal:Denies nausea, vomiting, diarrhea, constipation, hematemesis, melena, hematochezia. No no significant change of bowel habit noticed. Appetite was very poor Musculoskeletal: denies significant myalgias or arthralgias. No new joint swelling. Denies new back pain. Muscles are very weak Skin: Denies new rash or lesions. No new ulcers or wounds are related.. Neuro: She feels very weak but has not had falls or seizure Psychiatric:Denies anxiety or depression. Endocrine: Profound fatigue not able to state her weight Past Medical History Past Medical History: Diabetes Mellitus, Dialysis, GERD/Reflux, Hyperlipidemia, Hypertension, Memory Impairment, Renal Disease, Thyroid Disorder Additional Past Medical History / Comment(s): peritoneal dialysis daily over night. hx stil syndrome left hand-please use rt arm/hand for iv, blood draws. diabetic neuropathy and diabetic retinopathy, Rt BKA uses prosthesis History of Any Multi-Drug Resistant Organisms: MRSA Year Discovered:: 2016 MDRO Source:: rt foot Past Surgical History: Back Surgery, Hysterectomy Additional Past Surgical History / Comment(s): RBKA 01/23/16 R/T DM. neck cervical 4,5,6 fused. graft tie off 04/05/2017, eye laser surgery for diabetic retinopathy Past Anesthesia/Blood Transfusion Reactions: No Reported Reaction Past Psychological History: Anxiety, Depression Additional Psychological History / Comment(s): Single. Retired. No current tobacco or alcohol use. No experience. International travel. No animal exposures Smoking Status: Never smoker Past Alcohol Use History: None Reported Additional Past Alcohol Use History / Comment(s): smoked 25 years 1pack/wk quit 2002. Past Drug Use History: None Reported - Past Family History Mother Family Medical History: Diabetes Mellitus, Hypertension Additional Family Medical History / Comment(s): colon ca Father Family Medical History: Myocardial Infarction ([place]) Medications and Allergies Home Medications and Allergies Comment(s): Current Medications Acetaminophen (Tylenol Tab) 650 mg PO Q6HR PRN PRN Reason: Fever and/ or Pain Hydrocodone Bitart/Acetaminophen (Hadley 5-325) 1 each PO Q6HR PRN PRN Reason: Pain Apixaban (Eliquis) 2.5 mg PO BID [facility] Last Admin: 02/24/19 20:32 Dose: 2.5 mg Documented by: Calcium Acetate (Phoslo) 667 mg PO TID-W/MEALS [facility] Last Admin: 02/24/19 17:13 Dose: 667 mg Documented by: Clopidogrel Bisulfate (Plavix) 75 mg PO DAILY [facility] Furosemide (Lasix) 80 mg PO BID@0900,1600 [facility] Last Admin: 02/24/19 17:13 Dose: 80 mg Documented by: Piperacillin Sod/Tazobactam (Sod 3.375 gm/ Sodium Chloride) 100 mls @ 25 mls/hr IVPB Q12H [facility] Last Admin: 02/24/19 14:29 Dose: 25 mls/hr Documented by: Peritoneal Dialysis Solution (Delflex With 2.5% Dextrose (2,500 Ml)) 62.5 g in 2,500 mls @ 0 mls/hr INTRAPERIT Q6HR [facility]; Protocol Last Admin: 02/24/19 17:49 Dose: 3 mls/hr Documented by: Insulin Aspart (Novolog) 0 unit SQ ACHS [facility]; Protocol Last Admin: 02/24/19 20:32 Dose: 5 unit Documented by: Lactulose (Cephulac) 20 gm PO TID PRN PRN Reason: Constipation Last Admin: 02/24/19 13:21 Dose: 20 gm Documented by: Levothyroxine Sodium (Synthroid) 75 mcg PO 0630 [facility] Metoprolol Tartrate (Lopressor) 25 mg PO BID [facility] Last Admin: 02/24/19 20:32 Dose: 25 mg Documented by: Miscellaneous Information (Pharmacy To Dose Iv Vancomycin) 1 each MISCELLANE DIRECTED PRN PRN Reason: Per Protocol Pantoprazole Sodium (Protonix) 40 mg PO AC-BRKFST [facility] Pravastatin Sodium (Pravachol) 20 mg PO DAILY [facility] Pregabalin (Lyrica) 50 mg PO BID [facility] Last Admin: 02/24/19 20:32 Dose: 50 mg Documented by: Home Medications Medication Instructions Recorded Confirmed Type Levothyroxine Sodium [Synthroid] 75 mcg PO DAILY 10/09/16 02/23/19 History Pantoprazole [Protonix] 40 mg PO DAILY 10/09/16 02/23/19 History Pravastatin Sodium [Pravachol] 20 mg PO DAILY 10/09/16 02/23/19 History Calcium Acetate [PhosLo] 667 mg PO AC-TID 03/11/17 02/23/19 History Clopidogrel [Plavix] 75 mg PO DAILY 03/11/17 02/23/19 History Rosio-Thomas 1 tab PO DAILY 03/11/17 02/23/19 History Meclizine [Antivert] 25 mg PO TID PRN 04/26/17 02/23/19 History Acetaminophen Tab [Tylenol] 1,000 mg PO Q8H PRN 04/23/18 02/23/19 History Furosemide [Lasix] 80 mg PO BID 04/23/18 02/23/19 History Lactulose [Cephulac] 10 gm PO TID PRN #0 ml 11/15/18 02/23/19 Rx Metoprolol Tartrate [Lopressor] 25 mg PO BID #0 tab 11/15/18 02/23/19 Rx Fluticasone Nasal [place] [Flonase 1 spray EA NOSTRIL BID 01/04/19 02/23/19 History Nasal [place]] HYDROcodone/APAP 5-325MG [Hadley 1 tab PO Q6HR PRN 01/04/19 02/23/19 History 5-325] Loperamide [Imodium] 2 mg PO QID PRN 01/04/19 02/23/19 History Pregabalin [Lyrica] 50 mg PO BID 01/04/19 02/23/19 History Apixaban [Eliquis] 2.5 mg PO BID 02/23/19 02/23/19 History Allergies Allergy/AdvReac Type Severity Reaction Status Date / Time gabapentin Allergy Rash/Hives Verified 02/23/19 21:32 lisinopril AdvReac Cough Verified 02/23/19 21:32 Physical Exam Vitals: Vital Signs Temp Pulse Pulse Resp BP BP Pulse Ox 02/24/19 19:25 98.4 F 68 16 136/71 96 02/24/19 15:00 98.1 F 65 16 120/71 94 L 02/24/19 07:00 98.0 F 61 15 118/70 93 L 02/24/19 06:05 97.5 F L 61 18 106/64 100 02/24/19 00:39 97.9 F 66 15 114/67 100 02/23/19 23:42 68 17 121/50 100 02/23/19 23:40 98.8 F 02/23/19 23:07 71 18 101/46 93 L 102 fever noted right at admission Intake and Output 02/24/19 02/24/19 02/24/19 06:59 14:59 22:59 Intake Total 760 Output Total 150 Balance 760 -150 Intake: Intake, IV Titration 760 Amount Sodium Chloride 0.9% 1, 260 000 ml @ 130 mls/hr IV . Q7H42M [facility] Rx#:[id number] Vancomycin 1,750 mg In 500 Sodium Chloride 0.9% 500 ml 500 ml @ 167 mls/hr IVPB ONCE STA Rx#: [id number] Output: Urine 150 Other: Voiding Method CAPD CAPD # Voids 1 1 # Bowel Movements 1 Chronically ill-appearing, obese Afro-Tongan female, appears older than stated age HEENT: Anicteric conjunctiva are pink and moist nasal mucosa grossly intact without significant lesions, there is no thrush. She has facial swelling and edema Neck: The neck is supple without significant lymphadenopathy or thyromegaly. Lungs: There is symmetrical air entry however there are bibasilar crackles no br onchial sounds all dullness or egophony Heart: Regular rate and rhythm with an audible S1-S2, positive S4 There is no significant murmur click or rub, PMI was nondisplaced. Abdomen: Obese, is evidence of a positive developed this time with palpable fluid intra-abdominal, Positive bowel sounds soft and nontender without palpable masses or organomegaly. There was no guarding or rebound. Extremities: The upper extremities have excellent pulses they are symmetric, no significant petechiae or telangiectasia. No splinter hemorrhages were noted. Her extremities have bilateral lower extremity edema pulses are easily palpable 2+ and symmetric Neuro: Awake alert oriented to person place and time. There are no acute new gross focal sensory motor deficits. Although she is somewhat slowed and feels poorly. Results Results: Laboratory Results WBC 14.1 k/uL (3.8-10.6) H 02/23/19 20:44 RBC 3.46 m/uL (3.80-5.40) L 02/23/19 20:44 Hgb 9.6 gm/dL (11.4-16.0) L 02/23/19 20:44 Hct 30.7 % (34.0-46.0) L 02/23/19 20:44 MCV 88.7 fL (80.0-100.0) 02/23/19 20:44 MCH 27.8 pg (25.0-35.0) 02/23/19 20:44 MCHC 31.3 g/dL (31.0-37.0) 02/23/19 20:44 RDW 15.7 % (11.5-15.5) H 02/23/19 20:44 Plt Count 272 k/uL (150-450) 02/23/19 20:44 Neutrophils % 90 % 02/23/19 20:44 Lymphocytes % 4 % 02/23/19 20:44 Monocytes % 3 % 02/23/19 20:44 Eosinophils % 2 % 02/23/19 20:44 Basophils % 1 % 02/23/19 20:44 Neutrophils # 12.7 k/uL (1.3-7.7) H 02/23/19 20:44 Lymphocytes # 0.5 k/uL (1.0-4.8) L 02/23/19 20:44 Monocytes # 0.4 k/uL (0-1.0) 02/23/19 20:44 Eosinophils # 0.2 k/uL (0-0.7) 02/23/19 20:44 Basophils # 0.1 k/uL (0-0.2) 02/23/19 20:44 Hypochromasia Marked 02/23/19 20:44 Poikilocytosis Slight 02/23/19 20:44 PT 11.3 sec (9.0-12.0) 02/23/19 20:44 INR 1.1 (<1.2) 02/23/19 20:44 APTT 27.4 sec (22.0-30.0) 02/23/19 20:44 Sodium 142 mmol/L (137-145) 02/24/19 09:11 Potassium 3.0 mmol/L (3.5-5.1) L 02/24/19 09:11 Chloride 102 mmol/L (98-107) 02/24/19 09:11 Carbon Dioxide 28 mmol/L (22-30) 02/24/19 09:11 Anion Gap 12 mmol/L 02/24/19 09:11 BUN 59 mg/dL (7-17) H 02/24/19 09:11 Creatinine 12.66 mg/dL (0.52-1.04) H* 02/24/19 09:11 Est GFR (CKD-EPI)AfAm 3 (>60 ml/min/1.73 sqM) 02/24/19 09:11 Est GFR (CKD-EPI)NonAf 3 (>60 ml/min/1.73 sqM) 02/24/19 09:11 Glucose 222 mg/dL (74-99) H 02/24/19 09:11 POC Glucose (mg/dL) 232 mg/dL (75-99) H 02/24/19 20:18 POC Glu [place] Estimator Rosana Franklin 02/24/19 20:18 Plasma Lactic Acid James 1.5 mmol/L (0.7-2.0) 02/23/19 20:44 Calcium 6.3 mg/dL (8.4-10.2) L* 02/24/19 09:11 Phosphorus 5.2 mg/dL (2.5-4.5) H 02/24/19 09:11 Magnesium 1.4 mg/dL (1.6-2.3) L 02/23/19 20:44 Iron 10 ug/dL (50-170) L 02/24/19 09:11 TIBC 169 ug/dL (228-460) L 02/24/19 09:11 % Saturation 5.92 (12.00-45.00) L 02/24/19 09:11 Ferritin 163.0 ng/mL (10.0-291.0) 02/24/19 09:11 Total Bilirubin 0.3 mg/dL (0.2-1.3) 02/23/19 20:44 AST 13 U/L (14-36) L 02/23/19 20:44 ALT 14 U/L (9-52) 02/23/19 20:44 Alkaline Phosphatase 84 U/L (38-126) 02/23/19 20:44 Creatine Kinase 137 U/L (30-135) H 02/23/19 20:44 Troponin I <0.012 ng/mL (0.000-0.034) 02/23/19 20:44 Total Protein 5.8 g/dL (6.3-8.2) L 02/23/19 20:44 Albumin 2.9 g/dL (3.5-5.0) L 02/23/19 20:44 Fluid Source Dialysate 02/24/19 13:56 Fluid Color Colorless 02/24/19 13:56 Fluid Appearance Clear 02/24/19 13:56 Fluid RBC 16 /uL 02/24/19 13:56 Fluid Nucleated Cells 10 /uL 02/24/19 13:56 Influenza Type A RNA Not Detected (Not Detectd) 02/23/19 22:29 Influenza Type B (PCR) Not Detected (Not Detectd) 02/23/19 22:29 CBC & Chem 7: 02/23/19 20:44 02/24/19 09:11 Labs: Abnormal Lab Results - Last 24 Hours (Table) 02/24/19 02/24/19 02/24/19 Range/Units 00:38 06:51 09:11 Potassium 3.0 L (3.5-5.1) mmol/L BUN 59 H (7-17) mg/dL Creatinine 12.66 H* (0.52-1.04) mg/dL Glucose 222 H (74-99) mg/dL POC Glucose (mg/dL) 196 H 231 H (75-99) mg/dL Calcium 6.3 L* (8.4-10.2) mg/dL Phosphorus (2.5-4.5) mg/dL Iron (50-170) ug/dL TIBC (228-460) ug/dL % Saturation (12.00-45.00) 02/24/19 02/24/19 02/24/19 Range/Units 09:11 09:11 11:26 Potassium (3.5-5.1) mmol/L BUN (7-17) mg/dL Creatinine (0.52-1.04) mg/dL Glucose (74-99) mg/dL POC Glucose (mg/dL) 246 H (75-99) mg/dL Calcium (8.4-10.2) mg/dL Phosphorus 5.2 H (2.5-4.5) mg/dL Iron 10 L (50-170) ug/dL TIBC 169 L (228-460) ug/dL % Saturation 5.92 L (12.00-45.00) 02/24/19 02/24/19 Range/Units 16:51 20:18 Potassium (3.5-5.1) mmol/L BUN (7-17) mg/dL Creatinine (0.52-1.04) mg/dL Glucose (74-99) mg/dL POC Glucose (mg/dL) 244 H 232 H (75-99) mg/dL Calcium (8.4-10.2) mg/dL Phosphorus (2.5-4.5) mg/dL Iron (50-170) ug/dL TIBC (228-460) ug/dL % Saturation (12.00-45.00) Microbiology - Last 24 Hours (Table) 02/24/19 09:00 Gram Stain - Preliminary Peritoneal Fluid Body Fluid Culture - Preliminary 02/24/19 13:53 Body Fluid Culture - Preliminary Peritoneal Fluid 02/24/19 14:40 Urine Culture - Preliminary Urine,Clean Catch Microbiology 02/24/19 09:00 Peritoneal Fluid Gram Stain - Preliminary 02/24/19 09:00 Peritoneal Fluid Body Fluid Culture - Preliminary 02/24/19 13:53 Peritoneal Fluid Body Fluid Culture - Preliminary 02/24/19 14:40 Urine,Clean Catch Urine Culture - Preliminary Assessment and Plan (1) Fever Narrative/Plan: 63-year-old woman presents to Hospital for evaluation of progressive weakness feeling very poorly increasing difficulties navigating her daily activities because of her increasing weakness. She has the [facility] where she is evidence of a fever of 102 and feeling poorly. The patient is denying significant abdominal pain and has not noticed any cloudiness to her peritoneal dialysis drainage. At this time there is some data that reveals that there is only 10 cells within the fluid she does not appear to have peritonitis as the etiology of infection. She however does have some chronic urine symptoms and could have a urinary infection. She also has some congestion and could have a viral infection also occurring, influenza testing though was negative. Given the above concerns antibiotic therapy was initiated with a dose of vancomycin as well as Zosyn until further data is available. Most recent urine culture was E. coli nonresistant but unclear if this has changed. Blood cultures and urine cultures are pending. Her creatinine is greater than 12 her BUN is nearly 60 and does not appear that she's been having affective dialysis. This is discussed with the wire spiral binder and hopefully since she does not have evidence of peritonitis further. Hemodialysis can be performed if she does not respond there may need to be consideration at least for short-term hemodialysis to help her with her uremic symptomatology. Current Visit: Yes Status: Acute Code(s): R50.9 - FEVER, UNSPECIFIED SNOMED Code(s): 916990700 (2) End stage renal disease on dialysis Current Visit: Yes Status: Chronic Priority: High Code(s): N18.6 - END STAGE RENAL DISEASE; Z99.2 - DEPENDENCE ON RENAL DIALYSIS SNOMED Code(s): 698836744 (3) Anemia Current Visit: No Status: Chronic Priority: Medium Code(s): D64.9 - ANEMIA, UNSPECIFIED SNOMED Code(s): 375569500 (4) Type 2 diabetes mellitus with hyperglycemia Current Visit: No Status: Chronic Priority: High Code(s): E11.65 - TYPE 2 DIABETES MELLITUS WITH HYPERGLYCEMIA SNOMED Code(s): 348437477576885
[2019-02-25] MEDS: DIALYSIS (PERIT 2.5%) 2,500 ML 62.5 G/2,500 ML BAG INTRAPERIT SCH ×4 (00:01→20:13)
[2019-02-25] MEDS ORDERED: VANCOMYCIN 1,750 MG in SODIUM CHLORIDE 0.9% 500 ML 500 ML IVPB ONE (05:00)
[2019-02-25] MEDS: LEVOTHYROXINE 75 MCG TAB PO SCH (05:25)
[2019-02-25 07:06] LABS: Glucose,Whole Blood 352 mg/dL (75-99)
[2019-02-25 07:07] LABS: Hypochromasia Marked; MCH 27.8 pg (25.0-35.0); MCHC 30.5 g/dL (31.0-37.0); MCV 91.1 fL (80.0-100.0); Platelet Count 266 k/uL (150-450); Poikilocytosis Slight; RBC 2.86 m/uL (3.80-5.40); RDW 15.8 % (11.5-15.5); WBC 9.4 k/uL (3.8-10.6)
[2019-02-25] MEDS: PANTOPRAZOLE 40 MG TABLET PO SCH (07:15)
[2019-02-25] MEDS: INSULIN ASPART (NovoLOG) 100 UNIT/ML VIAL SQ SCH ×4 (07:15→20:12)
[2019-02-25] MEDS: CALCIUM ACETATE 667 MG TAB PO SCH ×3 (07:15→16:44)
[2019-02-25 07:18] LABS: Magnesium 1.8 mg/dL (1.6-2.3); Potassium 3.4 mmol/L (3.5-5.1)
[2019-02-25 07:23] LABS: HGB 7.9 gm/dL (11.4-16.0)
[2019-02-25 07:34] LABS: Calcium 6.3 mg/dL (8.4-10.2)
[2019-02-25] MEDS: FUROSEMIDE 80 MG TAB PO SCH ×2 (08:25→16:44)
[2019-02-25] MEDS: PRAVASTATIN SODIUM 20 MG TAB PO SCH (08:25)
[2019-02-25] MEDS: METOPROLOL TARTRATE 25 MG TAB PO SCH ×2 (08:25→20:12)
[2019-02-25] MEDS: PREGABALIN 50 MG CAP PO SCH ×2 (08:25→20:12)
[2019-02-25] MEDS: CLOPIDOGREL 75 MG TAB PO SCH (08:25)
[2019-02-25] MEDS: APIXABAN 2.5 MG TABLET PO SCH ×2 (08:26→20:12)
[2019-02-25] MEDS ORDERED: CALCIUM GLUCONATE 1 GM in SODIUM CHLORIDE 0.9% 100 ML IVPB ONE (09:00)
[2019-02-25] MEDS ORDERED: POTASSIUM CHLORIDE ER 20 MEQ TAB.ER PO STA ×2 (10:40→11:13)
[2019-02-25 11:34] LABS: Glucose,Whole Blood 318 mg/dL (75-99)
[2019-02-25] MEDS: PIPERACILLIN-TAZOBACTAM 3.375 GM in SODIUM CHLORIDE 0.9% 100 ML IVPB SCH (11:53)
--- NOTE | 2019-02-25 12:06 | P.PN ---
Subjective Patient is seen in follow-up for end-stage renal disease. She is maintained on peritoneal dialysis. No issues with peritoneal dialysis. Currently resting in bed. Feels better today. Afebrile this morning. Vital signs are stable. General: The patient appeared well nourished and normally developed. HEENT: Head exam is unremarkable. Neck is without jugular venous distension. LUNGS: Lungs are clear to auscultation and percussion. Breath sounds decreased. HEART: Rate and Rhythm are regular. First and second heart sounds normal. No murmurs, rubs or gallops. ABDOMEN: Abdominal exam reveals normal bowel sounds. Non-tender and non-distended. No evidence of peritonitis. EXTREMITITES: 1+ edema. BKA noted. Objective - Vital Signs Vital signs: Vital Signs Temp 98.7 F 02/25/19 07:00 Pulse 70 02/25/19 07:00 Resp 16 02/25/19 07:16 BP 117/67 02/25/19 07:00 Pulse Ox 96 02/25/19 07:00 Intake & Output 02/24/19 02/25/19 02/25/19 18:59 06:59 18:59 Intake Total 300 Output Total 150 Balance -150 300 Intake: Intake, IV Titration 100 Amount Piperacillin-Tazobactam 3 100 .375 gm In Sodium Chloride 0.9% 100 ml @ 25 mls/hr IVPB Q12H [facility] Rx# :[id number] Oral 200 Output: Urine 150 Other: Voiding Method CAPD CAPD CAPD # Voids 1 1 # Bowel Movements 1 - Labs CBC & Chem 7: 02/25/19 06:20 02/25/19 06:20 Labs: Abnormal Lab Results - Last 24 Hours (Table) 02/24/19 02/24/19 02/24/19 Range/Units 09:11 09:11 16:51 RBC (3.80-5.40) m/uL Hgb (11.4-16.0) gm/dL Hct (34.0-46.0) % MCHC (31.0-37.0) g/dL RDW (11.5-15.5) % Potassium (3.5-5.1) mmol/L BUN (7-17) mg/dL Creatinine (0.52-1.04) mg/dL Glucose (74-99) mg/dL POC Glucose (mg/dL) 244 H (75-99) mg/dL Calcium (8.4-10.2) mg/dL Phosphorus 5.2 H (2.5-4.5) mg/dL Iron 10 L (50-170) ug/dL TIBC 169 L (228-460) ug/dL % Saturation 5.92 L (12.00-45.00) 02/24/19 02/25/19 02/25/19 Range/Units 20:18 06:20 06:20 RBC 2.86 L (3.80-5.40) m/uL Hgb 7.9 L D (11.4-16.0) gm/dL Hct 26.0 L (34.0-46.0) % MCHC 30.5 L (31.0-37.0) g/dL RDW 15.8 H (11.5-15.5) % Potassium 3.4 L (3.5-5.1) mmol/L BUN 59 H (7-17) mg/dL Creatinine 11.55 H* (0.52-1.04) mg/dL Glucose 330 H (74-99) mg/dL POC Glucose (mg/dL) 232 H (75-99) mg/dL Calcium 6.3 L* (8.4-10.2) mg/dL Phosphorus (2.5-4.5) mg/dL Iron (50-170) ug/dL TIBC (228-460) ug/dL % Saturation (12.00-45.00) 02/25/19 02/25/19 Range/Units 06:50 11:33 RBC (3.80-5.40) m/uL Hgb (11.4-16.0) gm/dL Hct (34.0-46.0) % MCHC (31.0-37.0) g/dL RDW (11.5-15.5) % Potassium (3.5-5.1) mmol/L BUN (7-17) mg/dL Creatinine (0.52-1.04) mg/dL Glucose (74-99) mg/dL POC Glucose (mg/dL) 352 H 318 H (75-99) mg/dL Calcium (8.4-10.2) mg/dL Phosphorus (2.5-4.5) mg/dL Iron (50-170) ug/dL TIBC (228-460) ug/dL % Saturation (12.00-45.00) Microbiology - Last 24 Hours (Table) 02/24/19 09:00 Gram Stain - Preliminary Peritoneal Fluid Body Fluid Culture - Preliminary 02/24/19 13:53 Gram Stain - Preliminary Peritoneal Fluid Body Fluid Culture - Preliminary 02/23/19 20:44 Blood Culture - Preliminary Blood No Growth after 24 hours 02/24/19 14:40 Urine Culture - Preliminary Urine,Clean Catch Assessment and Plan Plan: Assessment: 1. End-stage renal disease maintained on peritoneal dialysis. 2. Hypokalemia from poor oral intake and PD losses. 3. Fever. Likely viral syndrome. No evidence of peritonitis. Influenza screen negative. Currently on IV Zosyn. Infectious disease following. 4. Insulin-dependent diabetes mellitus. 5. Anemia of chronic kidney disease. Iron deficiency noted. 6. Hypocalcemia secondary to chronic kidney disease. 7. Chronic kidney disease mineral bone disease maintained on PhosLo. 8. Constipation. Resolved. 9. Hypomagnesemia from poor oral intake. Better post replacement. 10. Fluid overload. Plan: Maintain current PD exchanges - I have increased the frequency to every 4 hours and I will do the next 2 exchanges with 4.25% solution for better ultrafiltrat ion. Replace potassium. 40 meq once today. 1 g IV calcium gluconate today. Maintain lactulose 3 times daily as needed for constipation. Maintain oral Lasix. IV iron 3 doses. First dose today. Check PTH and phosphorus level.
[2019-02-25] MEDS: DIALYSIS (PERIT 4.25%) 2500 ML 106.25 G/2,500 ML BAG INTRAPERIT SCH ×2 (12:11→16:09)
[2019-02-25] MEDS: SODIUM FERRIC GLUCONAT-SUCROSE 125 MG in SODIUM CHLORIDE 0.9% 100 ML IVPB SCH (12:32)
[2019-02-25 16:46] LABS: Glucose,Whole Blood 307 mg/dL (75-99)
[2019-02-25 19:58] LABS: Glucose,Whole Blood 351 mg/dL (75-99)
--- NOTE | 2019-02-25 20:52 | P.PN ---
Subjective Progress Note Date: 02/25/19 63-year-old woman who has a history of known end-stage renal disease who was treated via hemodialysis. The fistula was placed into her left arm however this resulted in significant debility to her left arm and could not tolerate hemodialysis. Constantly she was placed on peritoneal dialysis with the cycler. She was doing modestly well utilizing the cycler. She was having some fluid overload and some changes were performed. There was a difficulty with her CAPD catheter and she had a short bout of peritonitis in October which rapidly responded. The patient relates since then she's just been having ongoing decline in her status. Feeling weaker over time. She is not the point in which is having difficulty even navigating around her house. Appetite is poor. She does not believe the fluid that she was draining after her dwells is having any cloudiness or blood. She over did develop a fever and because she was feeling so poorly she presented to the emergency center. A fever was noted and she was admitted. She was initiated antibiotic therapy with vancomycin and then Zosyn was added pending further data. She relates that she feels very poorly. She has generalized weakness she has difficulty getting up to go to the bathroom because she feels so weak. She has not had syncope. Her appetite is poor. She relates that she does not make much urine when she does there is some discomfort but she does not believe this is very new. She does relate that she has some congestion and a minimal cough at times. 02/25/2018 the patient feels just slightly better today. The pleasure of discussing the case with tabulating clerk and they have changed her Peritoneal dialysis to every 4 hours to try to improve the effectiveness of the ultrafiltration. She has had no further fever except usual fever at admission. He has no other new acute complaints at this time. She does feel poorly overall Objective - Vital Signs Vital signs: Vital Signs Temp 98.2 F 02/25/19 20:15 Pulse 64 02/25/19 20:15 Resp 16 02/25/19 20:15 BP 120/71 02/25/19 20:15 Pulse Ox 94 L 02/25/19 20:15 Intake & Output 02/25/19 02/25/19 02/26/19 06:59 18:59 06:59 Intake Total 300 120 Balance 300 120 Intake: Intake, IV Titration 100 Amount Piperacillin-Tazobactam 3 100 .375 gm In Sodium Chloride 0.9% 100 ml @ 25 mls/hr IVPB Q12H [facility] Rx# :[id number] Oral 200 120 Other: Voiding Method CAPD CAPD # Voids 1 0 - Exam Chronically ill-appearing, obese Afro-[place] female, appears older than stated age HEENT: Anicteric conjunctiva are pink and moist nasal mucosa grossly intact without significant lesions, there is no thrush. She has facial swelling and edema Neck: The neck is supple without significant lymphadenopathy or thyromegaly. Lungs: There is symmetrical air entry however there are bibasilar crackles no bronchial sounds all dullness or egophony Heart: Regular rate and rhythm with an audible S1-S2, positive S4 There is no significant murmur click or rub, PMI was nondisplaced. Abdomen: Obese, is evidence of a positive developed this time with palpable fluid intra-abdominal, Positive bowel sounds soft and nontender without palpable masses or organomegaly. There was no guarding or rebound. Extremities: The upper extremities have excellent pulses they are symmetric, no significant petechiae or telangiectasia. No splinter hemorrhages were noted. Her extremities have bilateral lower extremity edema pulses are easily palpable 2+ and symmetric Neuro: Awake alert oriented to person place and time. There are no acute new gross focal sensory motor deficits. Although she is somewhat slowed and feels poorly. - Labs CBC & Chem 7: 02/25/19 06:20 02/25/19 06:20 Labs: Abnormal Lab Results - Last 24 Hours (Table) 02/25/19 02/25/19 02/25/19 Range/Units 06:20 06:20 06:20 RBC 2.86 L (3.80-5.40) m/uL Hgb 7.9 L D (11.4-16.0) gm/dL Hct 26.0 L (34.0-46.0) % MCHC 30.5 L (31.0-37.0) g/dL RDW 15.8 H (11.5-15.5) % Potassium 3.4 L (3.5-5.1) mmol/L BUN 59 H (7-17) mg/dL Creatinine 11.55 H* (0.52-1.04) mg/dL Glucose 330 H (74-99) mg/dL POC Glucose (mg/dL) (75-99) mg/dL Calcium 6.3 L* (8.4-10.2) mg/dL PTH Intact 576.6 H (14.0-72.0) pg/mL 02/25/19 02/25/19 02/25/19 Range/Units 06:50 11:33 16:45 RBC (3.80-5.40) m/uL Hgb (11.4-16.0) gm/dL Hct (34.0-46.0) % MCHC (31.0-37.0) g/dL RDW (11.5-15.5) % Potassium (3.5-5.1) mmol/L BUN (7-17) mg/dL Creatinine (0.52-1.04) mg/dL Glucose (74-99) mg/dL POC Glucose (mg/dL) 352 H 318 H 307 H (75-99) mg/dL Calcium (8.4-10.2) mg/dL PTH Intact (14.0-72.0) pg/mL 02/25/19 Range/Units 19:53 RBC (3.80-5.40) m/uL Hgb (11.4-16.0) gm/dL Hct (34.0-46.0) % MCHC (31.0-37.0) g/dL RDW (11.5-15.5) % Potassium (3.5-5.1) mmol/L BUN (7-17) mg/dL Creatinine (0.52-1.04) mg/dL Glucose (74-99) mg/dL POC Glucose (mg/dL) 351 H (75-99) mg/dL Calcium (8.4-10.2) mg/dL PTH Intact (14.0-72.0) pg/mL Microbiology - Last 24 Hours (Table) 02/24/19 13:53 Gram Stain - Preliminary Peritoneal Fluid Body Fluid Culture - Preliminary 02/24/19 09:00 Gram Stain - Preliminary Peritoneal Fluid Body Fluid Culture - Preliminary 02/23/19 20:44 Blood Culture - Preliminary Blood No Growth after 24 hours 02/24/19 14:40 Urine Culture - Preliminary Urine,Clean Catch Laboratory Results WBC 9.4 k/uL (3.8-10.6) 02/25/19 06:20 RBC 2.86 m/uL (3.80-5.40) L 02/25/19 06:20 Hgb 7.9 gm/dL (11.4-16.0) L D 02/25/19 06:20 Hct 26.0 % (34.0-46.0) L 02/25/19 06:20 MCV 91.1 fL (80.0-100.0) 02/25/19 06:20 MCH 27.8 pg (25.0-35.0) 02/25/19 06:20 MCHC 30.5 g/dL (31.0-37.0) L 02/25/19 06:20 RDW 15.8 % (11.5-15.5) H 02/25/19 06:20 Plt Count 266 k/uL (150-450) 02/25/19 06:20 Neutrophils % 90 % 02/23/19 20:44 Lymphocytes % 4 % 02/23/19 20:44 Monocytes % 3 % 02/23/19 20:44 Eosinophils % 2 % 02/23/19 20:44 Basophils % 1 % 02/23/19 20:44 Neutrophils # 12.7 k/uL (1.3-7.7) H 02/23/19 20:44 Lymphocytes # 0.5 k/uL (1.0-4.8) L 02/23/19 20:44 Monocytes # 0.4 k/uL (0-1.0) 02/23/19 20:44 Eosinophils # 0.2 k/uL (0-0.7) 02/23/19 20:44 Basophils # 0.1 k/uL (0-0.2) 02/23/19 20:44 Hypochromasia Marked 02/25/19 06:20 Poikilocytosis Slight 02/25/19 06:20 PT 11.3 sec (9.0-12.0) 02/23/19 20:44 INR 1.1 (<1.2) 02/23/19 20:44 APTT 27.4 sec (22.0-30.0) 02/23/19 20:44 Sodium 140 mmol/L (137-145) 02/25/19 06:20 Potassium 3.4 mmol/L (3.5-5.1) L 02/25/19 06:20 Chloride 103 mmol/L (98-107) 02/25/19 06:20 Carbon Dioxide 24 mmol/L (22-30) 02/25/19 06:20 Anion Gap 13 mmol/L 02/25/19 06:20 BUN 59 mg/dL (7-17) H 02/25/19 06:20 Creatinine 11.55 mg/dL (0.52-1.04) H* 02/25/19 06:20 Est GFR (CKD-EPI)AfAm 4 (>60 ml/min/1.73 sqM) 02/25/19 06:20 Est GFR (CKD-EPI)NonAf 3 (>60 ml/min/1.73 sqM) 02/25/19 06:20 Glucose 330 mg/dL (74-99) H 02/25/19 06:20 POC Glucose (mg/dL) 351 mg/dL (75-99) H 02/25/19 19:53 POC Glu Line Locator [facility] Janae Larsen 02/25/19 19:53 Plasma Lactic Acid James 1.5 mmol/L (0.7-2.0) 02/23/19 20:44 Calcium 6.3 mg/dL (8.4-10.2) L* 02/25/19 06:20 Phosphorus 5.2 mg/dL (2.5-4.5) H 02/24/19 09:11 Magnesium 1.8 mg/dL (1.6-2.3) 02/25/19 06:20 Iron 10 ug/dL (50-170) L 02/24/19 09:11 TIBC 169 ug/dL (228-460) L 02/24/19 09:11 % Saturation 5.92 (12.00-45.00) L 02/24/19 09:11 Ferritin 163.0 ng/mL (10.0-291.0) 02/24/19 09:11 Total Bilirubin 0.3 mg/dL (0.2-1.3) 02/23/19 20:44 AST 13 U/L (14-36) L 02/23/19 20:44 ALT 14 U/L (9-52) 02/23/19 20:44 Alkaline Phosphatase 84 U/L (38-126) 02/23/19 20:44 Creatine Kinase 137 U/L (30-135) H 02/23/19 20:44 Troponin I <0.012 ng/mL (0.000-0.034) 02/23/19 20:44 Total Protein 5.8 g/dL (6.3-8.2) L 02/23/19 20:44 Albumin 2.9 g/dL (3.5-5.0) L 02/23/19 20:44 PTH Intact 576.6 pg/mL (14.0-72.0) H 02/25/19 06:20 Fluid Source Dialysate 02/24/19 13:56 Fluid Color Colorless 02/24/19 13:56 Fluid Appearance Clear 02/24/19 13:56 Fluid RBC 16 /uL 02/24/19 13:56 Fluid Nucleated Cells 10 /uL 02/24/19 13:56 Influenza Type A RNA Not Detected (Not Detectd) 02/23/19 22:29 Influenza Type B (PCR) Not Detected (Not Detectd) 02/23/19 22:29 Microbiology 02/24/19 13:53 Peritoneal Fluid Gram Stain - Preliminary 02/24/19 13:53 Peritoneal Fluid Body Fluid Culture - Preliminary 02/24/19 09:00 Peritoneal Fluid Gram Stain - Preliminary 02/24/19 09:00 Peritoneal Fluid Body Fluid Culture - Preliminary 02/23/19 20:44 Blood Blood Culture - Preliminary No Growth after 24 hours 02/24/19 14:40 Urine,Clean Catch Urine Culture - Preliminary Assessment and Plan (1) Fever Narrative/Plan: 63-year-old woman presents to Hospital for evaluation of progressive weakness feeling very poorly increasing difficulties navigating her daily activities because of her increasing weakness. She has the [facility] where she is evidence of a fever of 102 and feeling poorly. The patient is denying significant abdominal pain and has not noticed any cloudiness to her peritoneal dialysis drainage. At this time there is some data that reveals that there is only 10 cells within the fluid she does not appear to have peritonitis as the etiology of infection. She however does have some chronic urine symptoms and could have a urinary infection. She also has some congestion and could have a viral infection also occurring, influenza testing though was negative. Given the above concerns antibiotic therapy was initiated with a dose of vancomycin as well as Zosyn until further data is available. Most recent urine culture was E. coli nonresistant but unclear if this has changed. Blood cultures and urine cultures are pending. Her creatinine is greater than 12 her BUN is nearly 60 and does not appear that she's been having affective dialysis. This is discussed with the tabulating clerk and hopefully since she does not have evidence of peritonitis further. Hemodialysis can be performed if she does not respond there may need to be consideration at least for short-term hemodialysis to help her with her uremic symptomatology. 02/25/2019 the patient feels just slightly better today than yesterday. They deliver sitting up in the chair and she relates that she feels more awake. Appetite is still poor but his hemoglobin improved today. As far as antibiotic therapy does not need further vancomycin dosing and Zosyn was continued until urine culture results become available. Potential urinary infection appears is in the significant potential this time of an underlying infection given the current data. She is improved in that she has no further fever and mild leukocytosis at admission has resolved. She is now receiving the peritoneal dialysis every 4 hours which will hopefully improve her significant uremic condition. Current Visit: Yes Status: Acute Code(s): R50.9 - FEVER, UNSPECIFIED SNOMED Code(s): 260583888 (2) End stage renal disease on dialysis Current Visit: Yes Status: Chronic Priority: High Code(s): N18.6 - END STAGE RENAL DISEASE; Z99.2 - DEPENDENCE ON RENAL DIALYSIS SNOMED Code(s): 538403282 (3) Anemia Current Visit: No Status: Chronic Priority: Medium Code(s): D64.9 - ANEMIA, UNSPECIFIED SNOMED Code(s): 450004516 (4) Type 2 diabetes mellitus with hyperglycemia Current Visit: No Status: Chronic Priority: High Code(s): E11.65 - TYPE 2 DIABETES MELLITUS WITH HYPERGLYCEMIA SNOMED Code(s): 340483994622983
[2019-02-26] MEDS: PIPERACILLIN-TAZOBACTAM 3.375 GM in SODIUM CHLORIDE 0.9% 100 ML IVPB SCH ×2 (00:08→11:53)
[2019-02-26] MEDS: DIALYSIS (PERIT 2.5%) 2,500 ML 62.5 G/2,500 ML BAG INTRAPERIT SCH ×4 (00:08→20:13)
[2019-02-26] MEDS: LEVOTHYROXINE 75 MCG TAB PO SCH (05:32)
[2019-02-26 07:03] LABS: Glucose,Whole Blood 339 mg/dL (75-99)
[2019-02-26] MEDS: INSULIN ASPART (NovoLOG) 100 UNIT/ML VIAL SQ SCH ×4 (07:17→21:15)
[2019-02-26] MEDS: PANTOPRAZOLE 40 MG TABLET PO SCH (07:18)
[2019-02-26] MEDS: CALCIUM ACETATE 667 MG TAB PO SCH ×3 (07:18→17:18)
[2019-02-26 08:11] LABS: Calcium 6.7 mg/dL (8.4-10.2); Phosphorus 4.3 mg/dL (2.5-4.5); Potassium 3.5 mmol/L (3.5-5.1)
[2019-02-26] MEDS: SODIUM FERRIC GLUCONAT-SUCROSE 125 MG in SODIUM CHLORIDE 0.9% 100 ML IVPB SCH (08:42)
[2019-02-26] MEDS: METOPROLOL TARTRATE 25 MG TAB PO SCH ×2 (08:42→21:15)
[2019-02-26] MEDS: PRAVASTATIN SODIUM 20 MG TAB PO SCH (08:43)
[2019-02-26] MEDS: PREGABALIN 50 MG CAP PO SCH ×2 (08:43→21:15)
[2019-02-26] MEDS: FUROSEMIDE 80 MG TAB PO SCH ×2 (08:43→17:18)
[2019-02-26] MEDS: ACETAMINOPHEN TAB 325 MG TAB PO PRN ×2 (08:54→17:21)
[2019-02-26] MEDS: LACTULOSE 20 GM/30 ML CUP PO PRN (08:54)
--- NOTE | 2019-02-26 09:02 | P.PN ---
Subjective Progress Note Date: 02/25/19 Principal diagnosis: This is a 63-year-old female with the known history of end-stage renal disease and peritoneal dialysis and was recently treated for peritonitis still on vancomycin came in with complaints of fever and chills patient is found to have white blood cell count patient is found to be septic patient chest x-ray did not show any pneumonia patient barely makes urine peritoneal dialysis fluid is clear doesn't appear to be infected although fluid is sent for analysis and that's probably the source of infection patient denied any increased abdominal pain at this time. Infectious disease was consulted patient was started on vancomycin and the Zosyn at this time. Patient is much feeling much better today patient was quite fatigued yesterday. 02/25/2019 Patient is lying in bed in no acute distress currently working with physical therapy at this time. Per nursing staff patient has been afebrile and will continue to monitor closely. Nephrology and infectious disease are following. Patient states that she does do peritoneal dialysis 4 times a day at home and has mentioned that she may be increased to every 4 hours per nephrology recommendations. Patient is awake and less fatigued today with no overnight acute issues. Currently patient denies any chest pain, palpitations, or shortness of breath at this time. Patient has been afebrile. Patient denies any nausea or vomiting and is tolerating diet. Urine culture thus far shows gram-negative bacilli and will await culture finalization. Patient is maintained on IV antibiotics in the form of vancomycin and Zosyn. Guarded prognosis. Objective - Vital Signs Vital signs: Vital Signs Temp 98.3 F 02/26/19 08:00 Pulse 71 02/26/19 08:00 Resp 17 02/26/19 08:00 BP 108/65 02/26/19 08:00 Pulse Ox 93 L 02/26/19 08:00 Intake & Output 02/25/19 02/26/19 02/26/19 18:59 06:59 18:59 Intake Total 120 440 Balance 120 440 Weight 127.4 kg Intake: Intake, IV Titration 200 Amount Piperacillin-Tazobactam 3 200 .375 gm In Sodium Chloride 0.9% 100 ml @ 25 mls/hr IVPB Q12H [facility] Rx# :[id number] Oral 120 240 Other: Voiding Method CAPD # Voids 0 0 - Exam GENERAL: The patient is alert and oriented x3, not in any acute distress. Obese HEENT: Pupils are round and equally reacting to light. EOMI. No scleral icterus. No conjunctival pallor. Normocephalic, atraumatic. No pharyngeal erythema. No th yromegaly. CARDIOVASCULAR: S1 and S2 present. No murmurs, rubs, or gallops. PULMONARY: Chest is clear to auscultation, no wheezing or crackles. ABDOMEN: distended nontender normoactive bowel sounds. No palpable organomegaly. MUSCULOSKELETAL: No joint swelling or deformity. EXTREMITIES: No cyanosis, clubbing, or pedal edema on the left side. Below-knee amputation on the right side NEUROLOGICAL: Gross neurological examination did not reveal any focal deficits. SKIN: No rashes. - Labs CBC & Chem 7: 02/25/19 06:20 02/26/19 06:49 Labs: Abnormal Lab Results - Last 24 Hours (Table) 02/25/19 02/25/19 02/25/19 Range/Units 06:20 11:33 16:45 BUN (7-17) mg/dL Creatinine (0.52-1.04) mg/dL Glucose (74-99) mg/dL POC Glucose (mg/dL) 318 H 307 H (75-99) mg/dL Calcium (8.4-10.2) mg/dL PTH Intact 576.6 H (14.0-72.0) pg/mL 02/25/19 02/26/19 02/26/19 Range/Units 19:53 06:49 07:01 BUN 53 H (7-17) mg/dL Creatinine 11.47 H* (0.52-1.04) mg/dL Glucose 328 H (74-99) mg/dL POC Glucose (mg/dL) 351 H 339 H (75-99) mg/dL Calcium 6.7 L (8.4-10.2) mg/dL PTH Intact (14.0-72.0) pg/mL Microbiology - Last 24 Hours (Table) 02/23/19 20:44 Blood Culture - Preliminary Blood No Growth after 48 hours 02/24/19 14:40 Urine Culture - Preliminary Urine,Clean Catch Gram Neg Bacilli Gram Neg Bacilli#2 02/24/19 13:53 Gram Stain - Preliminary Peritoneal Fluid Body Fluid Culture - Preliminary 02/24/19 09:00 Gram Stain - Preliminary Peritoneal Fluid Body Fluid Culture - Preliminary Assessment and Plan Assessment: -Sepsis possible source the being peritonitis again. From a respiratory dialysis catheter site from antibiotics Zosyn and vancomycin in the infectious disease will evaluate the patient for peritoneal dialysis fluid is sent for culture analysis along with blood culture. Vancomycin was discontinued and patient will continue on Zosyn per infectious disease recommendations until urine culture finalizes. Urine culture thus far shows gram-negative bacilli -End-stage renal disease on peritoneal dialysis nephrology evaluate the patient and patient is being continued on peritoneal dialysis at this time -Insulin-dependent diabetes mellitus uncontrolled blood sugars and elevated blood sugars will continue with home regimen along with the sliding scale insulin titration depending on the blood sugars here. 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
[2019-02-26 09:52] LABS: Vancomycin,Random 14.5 ug/mL
[2019-02-26] MEDS ORDERED: POTASSIUM CHLORIDE ER 20 MEQ TAB.ER PO STA (10:11)
--- NOTE | 2019-02-26 10:11 | P.PN ---
Subjective Patient is seen in follow-up for end-stage renal disease. She is maintained on peritoneal dialysis. No issues with peritoneal dialysis. Currently resting in bed. Oral intake is fair. Urine culture positive for gram-negative bacilli. Blood sugars elevated. Vital signs are stable. General: The patient appeared well nourished and normally developed. HEENT: Head exam is unremarkable. Neck is without jugular venous distension. LUNGS: Lungs are clear to auscultation and percussion. Breath sounds decreased. HEART: Rate and Rhythm are regular. First and second heart sounds normal. No murmurs, rubs or gallops. ABDOMEN: Abdominal exam reveals normal bowel sounds. Non-tender and non- distended. No evidence of peritonitis. EXTREMITITES: 1+ edema. Right BKA noted. Objective - Vital Signs Vital signs: Vital Signs Temp 98.3 F 02/26/19 08:00 Pulse 71 02/26/19 08:00 Resp 17 02/26/19 08:00 BP 108/65 02/26/19 08:00 Pulse Ox 93 L 02/26/19 08:00 Intake & Output 02/25/19 02/26/19 02/26/19 18:59 06:59 18:59 Intake Total 120 440 Balance 120 440 Weight 127.4 kg Intake: Intake, IV Titration 200 Amount Piperacillin-Tazobactam 3 200 .375 gm In Sodium Chloride 0.9% 100 ml @ 25 mls/hr IVPB Q12H [facility] Rx# :[id number] Oral 120 240 Other: Voiding Method CAPD # Voids 0 0 - Labs CBC & Chem 7: 02/25/19 06:20 02/26/19 06:49 Labs: Abnormal Lab Results - Last 24 Hours (Table) 02/25/19 02/25/19 02/25/19 Range/Units 06:20 11:33 16:45 BUN (7-17) mg/dL Creatinine (0.52-1.04) mg/dL Glucose (74-99) mg/dL POC Glucose (mg/dL) 318 H 307 H (75-99) mg/dL Calcium (8.4-10.2) mg/dL PTH Intact 576.6 H (14.0-72.0) pg/mL 02/25/19 02/26/19 02/26/19 Range/Units 19:53 06:49 07:01 BUN 53 H (7-17) mg/dL Creatinine 11.47 H* (0.52-1.04) mg/dL Glucose 328 H (74-99) mg/dL POC Glucose (mg/dL) 351 H 339 H (75-99) mg/dL Calcium 6.7 L (8.4-10.2) mg/dL PTH Intact (14.0-72.0) pg/mL Microbiology - Last 24 Hours (Table) 02/23/19 20:44 Blood Culture - Preliminary Blood No Growth after 48 hours 02/24/19 14:40 Urine Culture - Preliminary Urine,Clean Catch Gram Neg Bacilli Gram Neg Bacilli#2 02/24/19 13:53 Gram Stain - Preliminary Peritoneal Fluid Body Fluid Culture - Preliminary 02/24/19 09:00 Gram Stain - Preliminary Peritoneal Fluid Body Fluid Culture - Preliminary Assessment and Plan Plan: Assessment: 1. End-stage renal disease maintained on peritoneal dialysis. 2. Hypokalemia from poor oral intake and PD losses. 3. Fever. Likely viral syndrome and UTI. Urine culture positive for gram- negative bacilli. No evidence of peritonitis. Influenza screen negative. Currently on IV Zosyn. Infectious disease following. 4. Insulin-dependent diabetes mellitus. 5. Anemia of chronic kidney disease. Iron deficiency noted. 6. Hypocalcemia secondary to chronic kidney disease. 7. Chronic kidney disease mineral bone disease maintained on PhosLo. 8. Constipation. Resolved. 9. Hypomagnesemia from poor oral intake. Better post replacement. 10. Fluid overload. Plan: Maintain current PD exchanges - 2 exchanges today with 4.25% solution for better ultrafiltration. Also recommend tight blood sugar control to achieve better ultrafiltration. Replace potassium. 40 meq once today. Maintain lactulose 3 times daily as needed for constipation. Maintain oral Lasix. IV iron 3 doses. Second dose today. Add 0.25 g calcitriol daily.
[2019-02-26] MEDS: CALCITRIOL 0.25 MCG CAP PO SCH (10:46)
[2019-02-26] MEDS: CLOPIDOGREL 75 MG TAB PO SCH (11:53)
[2019-02-26] MEDS: APIXABAN 2.5 MG TABLET PO SCH ×2 (11:53→21:15)
[2019-02-26 12:01] LABS: Glucose,Whole Blood 363 mg/dL (75-99)
[2019-02-26] MEDS ORDERED: INSULIN ASPART (NovoLOG) 100 UNIT/ML VIAL SQ ONE (12:12)
[2019-02-26] MEDS: DIALYSIS (PERIT 4.25%) 2500 ML 106.25 G/2,500 ML BAG INTRAPERIT SCH ×2 (12:42→16:50)
[2019-02-26 17:11] LABS: Glucose,Whole Blood 271 mg/dL (75-99)
[2019-02-26 20:07] LABS: Glucose,Whole Blood 274 mg/dL (75-99)
[2019-02-26 20:41] VITALS: RESP 16
[2019-02-27] MEDS: DIALYSIS (PERIT 2.5%) 2,500 ML 62.5 G/2,500 ML BAG INTRAPERIT SCH ×5 (00:32→10:21)
[2019-02-27] MEDS: PIPERACILLIN-TAZOBACTAM 3.375 GM in SODIUM CHLORIDE 0.9% 100 ML IVPB SCH (00:33)
[2019-02-27 01:29] VITALS: PULSE 64
[2019-02-27] MEDS: LEVOTHYROXINE 75 MCG TAB PO SCH (05:31)
[2019-02-27 07:12] LABS: Glucose,Whole Blood 342 mg/dL (75-99)
[2019-02-27 07:57] VITALS: BP 118/69; TEMP 97.6
[2019-02-27] MEDS: CALCITRIOL 0.25 MCG CAP PO SCH (08:09)
[2019-02-27] MEDS: FUROSEMIDE 80 MG TAB PO SCH (08:09)
[2019-02-27] MEDS: CALCIUM ACETATE 667 MG TAB PO SCH ×2 (08:09→12:50)
[2019-02-27] MEDS: PREGABALIN 50 MG CAP PO SCH (08:09)
[2019-02-27] MEDS: CLOPIDOGREL 75 MG TAB PO SCH (08:09)
[2019-02-27] MEDS: METOPROLOL TARTRATE 25 MG TAB PO SCH (08:09)
[2019-02-27] MEDS: PANTOPRAZOLE 40 MG TABLET PO SCH (08:09)
[2019-02-27] MEDS: APIXABAN 2.5 MG TABLET PO SCH (08:09)
[2019-02-27] MEDS: PRAVASTATIN SODIUM 20 MG TAB PO SCH (08:09)
[2019-02-27] MEDS: INSULIN ASPART (NovoLOG) 100 UNIT/ML VIAL SQ SCH ×2 (08:10→12:50)
[2019-02-27 08:13] LABS: Calcium 7.2 mg/dL (8.4-10.2); Magnesium 1.7 mg/dL (1.6-2.3); Potassium 3.4 mmol/L (3.5-5.1)
--- NOTE | 2019-02-27 08:40 | P.PN ---
Subjective Progress Note Date: 02/26/19 Principal diagnosis: This is a 63-year-old female with the known history of end-stage renal disease and peritoneal dialysis and was recently treated for peritonitis still on vancomycin came in with complaints of fever and chills patient is found to have white blood cell count patient is found to be septic patient chest x-ray did not show any pneumonia patient barely makes urine peritoneal dialysis fluid is clear doesn't appear to be infected although fluid is sent for analysis and that's probably the source of infection patient denied any increased abdominal pain at this time. Infectious disease was consulted patient was started on vancomycin and the Zosyn at this time. Patient is much feeling much better today patient was quite fatigued yesterday. 02/25/2019 Patient is lying in bed in no acute distress currently working with physical therapy at this time. Per nursing staff patient has been afebrile and will continue to monitor closely. Nephrology and infectious disease are following. Patient states that she does do peritoneal dialysis 4 times a day at home and has mentioned that she may be increased to every 4 hours per nephrology recommendations. Patient is awake and less fatigued today with no overnight acute issues. Currently patient denies any chest pain, palpitations, or shortness of breath at this time. Patient has been afebrile. Patient denies any nausea or vomiting and is tolerating diet. Urine culture thus far shows gram-negative bacilli and will await culture finalization. Patient is maintained on IV antibiotics in the form of vancomycin and Zosyn. Guarded prognosis. 02/26/2019 Patient is lying in bed in no acute distress attempting to get up with physical therapy to the chair. Patient is lethargic today and requiring some assistance with getting up to the side of the bed. Patient is currently on peritoneal dialysis every 4 hours per nephrology recommendations. Blood sugars continue to be elevated and her being closely monitored. Patient normally uses an insulin pump and has the pump at her supplies her at home and awaiting for family members to call back today comparing the supplies in. Laci shaikh inclusion paraeducator visited the patient and discussed possible long-acting coverage. Will await for insulin pump supplies and will continue to treat with sliding scale at this time. No acute overnight issues. Currently patient denies any chest pain, shortness of breath, or palpitations. Patient has remained afebrile over 24 hours. She denies any nausea or vomiting and is tolerating diet. Patient isn't eating very much she states. Urine cultures have finalized showing pseudomonas aeruginosa along with gram-negative bacilli which is sensitive to Zosyn and patient remains on this at this time. Infectious disease is following. Will continue to monitor closely. Objective - Vital Signs Vital signs: Vital Signs Temp 97.9 F 02/26/19 15:00 Pulse 66 02/26/19 15:00 Resp 15 02/26/19 15:00 BP 130/77 02/26/19 15:00 Pulse Ox 99 02/26/19 15:00 Intake & Output 02/25/19 02/26/19 02/26/19 18:59 06:59 18:59 Intake Total 120 440 Balance 120 440 Weight 127.4 kg Intake: Intake, IV Titration 200 Amount Piperacillin-Tazobactam 3 200 .375 gm In Sodium Chloride 0.9% 100 ml @ 25 mls/hr IVPB Q12H [facility] Rx# :[id number] Oral 120 240 Other: Voiding Method CAPD # Voids 0 0 # Bowel Movements 1 - Exam GENERAL: The patient is alert and oriented x3, not in any acute distress. Obese HEENT: Pupils are round and equally reacting to light. EOMI. No scleral icterus. No conjunctival pallor. Normocephalic, atraumatic. No pharyngeal erythema. No thyromegaly. CARDIOVASCULAR: S1 and S2 present. No murmurs, rubs, or gallops. PULMONARY: Chest is clear to auscultation, no wheezing or crackles. ABDOMEN: distended nontender normoactive bowel sounds. No palpable organomegaly. MUSCULOSKELETAL: No joint swelling or deformity. EXTREMITIES: No cyanosis, clubbing, or pedal edema on the left side. Below-knee amputation on the right side NEUROLOGICAL: Gross neurological examination did not reveal any focal deficits. SKIN: No rashes. - Labs CBC & Chem 7: 02/25/19 06:20 02/27/19 06:58 Labs: Abnormal Lab Results - Last 24 Hours (Table) 02/25/19 02/25/19 02/25/19 Range/Units 06:20 16:45 19:53 BUN (7-17) mg/dL Creatinine (0.52-1.04) mg/dL Glucose (74-99) mg/dL POC Glucose (mg/dL) 307 H 351 H (75-99) mg/dL Calcium (8.4-10.2) mg/dL PTH Intact 576.6 H (14.0-72.0) pg/mL 02/26/19 02/26/19 02/26/19 Range/Units 06:49 07:01 11:59 BUN 53 H (7-17) mg/dL Creatinine 11.47 H* (0.52-1.04) mg/dL Glucose 328 H (74-99) mg/dL POC Glucose (mg/dL) 339 H 363 H (75-99) mg/dL Calcium 6.7 L (8.4-10.2) mg/dL PTH Intact (14.0-72.0) pg/mL Microbiology - Last 24 Hours (Table) 02/24/19 13:53 Gram Stain - Preliminary Peritoneal Fluid Body Fluid Culture - Preliminary 02/24/19 09:00 Gram Stain - Preliminary Peritoneal Fluid Body Fluid Culture - Preliminary 02/23/19 20:44 Blood Culture - Preliminary Blood No Growth after 48 hours 02/24/19 14:40 Urine Culture - Preliminary Urine,Clean Catch Gram Neg Bacilli Gram Neg Bacilli#2 Assessment and Plan Assessment: -Sepsis possible source the being peritonitis again. From a respiratory dialysis catheter site from antibiotics Zosyn and vancomycin in the infectious disease will evaluate the patient for peritoneal dialysis fluid is sent for culture analysis along with blood culture. Vancomycin was discontinued and patient will continue on Zosyn per infectious disease recommendations until urin e culture finalizes. Urine culture finalized showing pseudomonas aeruginosa along with gram-negative bacilli which is sensitive to Zosyn. -End-stage renal disease on peritoneal dialysis nephrology evaluate the patient and patient is being continued on peritoneal dialysis at this time. Nephrology has increased her dialysis to every 4 hours. -Insulin-dependent diabetes mellitus uncontrolled blood sugars and elevated blood sugars will continue with home regimen along with the sliding scale insuli n titration depending on the blood sugars here. Awaiting family to bring and supplies from her insulin pump and resume insulin pump for better blood glucose control. 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 Patient states that she was started on Eliquis earlier this year for a blood clot in her left upper extremity. Patient denies any stents or history of strokes and still unsure of why she is currently on Plavix.
[2019-02-27] MEDS ORDERED: POTASSIUM CHLORIDE ER 20 MEQ TAB.ER PO STA (09:49)
--- NOTE | 2019-02-27 10:02 | P.PN ---
Subjective Patient is seen in follow-up for end-stage renal disease. She is maintained on peritoneal dialysis. No issues with peritoneal dialysis. Currently resting in bed. Oral intake is fair. Urine culture positive for Pseudomonas. Blood sugars remain elevated. Vital signs are stable. General: The patient appeared well nourished and normally developed. HEENT: Head exam is unremarkable. Neck is without jugular venous distension. LUNGS: Lungs are clear to auscultation and percussion. Breath sounds decreased. HEART: Rate and Rhythm are regular. First and second heart sounds normal. No murmurs, rubs or gallops. ABDOMEN: Abdominal exam reveals normal bowel sounds. Non-tender and non- distended. No evidence of peritonitis. EXTREMITITES: 1+ edema. Right BKA noted. Objective - Vital Signs Vital signs: Vital Signs Temp 97.6 F 02/27/19 07:00 Pulse 64 02/27/19 07:00 Resp 16 02/27/19 07:00 BP 118/69 02/27/19 07:00 Pulse Ox 97 02/27/19 07:00 Intake & Output 02/26/19 02/27/19 02/27/19 18:59 06:59 18:59 Intake Total 50 Balance 50 Weight 126.9 kg Intake: Oral 50 Other: Voiding Method CAPD # Voids 0 # Bowel Movements 1 - Labs CBC & Chem 7: 02/25/19 06:20 02/27/19 06:58 Labs: Abnormal Lab Results - Last 24 Hours (Table) 02/26/19 02/26/19 02/26/19 Range/Units 11:59 17:10 20:05 Potassium (3.5-5.1) mmol/L BUN (7-17) mg/dL Creatinine (0.52-1.04) mg/dL Glucose (74-99) mg/dL POC Glucose (mg/dL) 363 H 271 H 274 H (75-99) mg/dL Calcium (8.4-10.2) mg/dL 02/27/19 02/27/19 Range/Units 06:57 06:58 Potassium 3.4 L (3.5-5.1) mmol/L BUN 45 H (7-17) mg/dL Creatinine 11.50 H* (0.52-1.04) mg/dL Glucose 340 H (74-99) mg/dL POC Glucose (mg/dL) 342 H (75-99) mg/dL Calcium 7.2 L (8.4-10.2) mg/dL Microbiology - Last 24 Hours (Table) 02/24/19 13:53 Gram Stain - Preliminary Peritoneal Fluid Body Fluid Culture - Preliminary 02/24/19 09:00 Gram Stain - Preliminary Peritoneal Fluid Body Fluid Culture - Preliminary 02/23/19 20:44 Blood Culture - Preliminary Blood No Growth after 72 hours 02/24/19 14:40 Urine Culture - Preliminary Urine,Clean Catch Pseudomonas aeruginosa Gram Neg Bacilli Assessment and Plan Plan: Assessment: 1. End-stage renal disease maintained on peritoneal dialysis. 2. Hypokalemia from poor oral intake and PD losses. 3. Fever. Likely viral syndrome and UTI. Urine culture positive for Pseudomonas. No evidence of peritonitis. Influenza screen negative. Currently on IV Zosyn. Infectious disease following. 4. Insulin-dependent diabetes mellitus. 5. Anemia of chronic kidney disease. Iron deficiency noted. 6. Hypocalcemia secondary to chronic kidney disease. Better. 7. Chronic kidney disease mineral bone disease maintained on PhosLo. 8. Constipation. Resolved. 9. Hypomagnesemia from poor oral intake. Better post replacement. 10. Fluid overload. Plan: Maintain current PD exchanges - 2 exchanges again today with 4.25% solution for better ultrafiltration. Also recommend tight blood sugar control to achieve better ultrafiltration. Still hasn't gotten her insulin pump from home. Replace potassium. 40 meq once today. Maintain lactulose 3 times daily as needed for constipation. Maintain oral Lasix. IV iron 3 doses. Third dose today. Maintain 0.25 g calcitriol daily.
[2019-02-27] MEDS ORDERED: INSULIN ASPART (NovoLOG) 100 UNIT/ML VIAL SQ ONE (10:24)
[2019-02-27] MEDS: SODIUM FERRIC GLUCONAT-SUCROSE 125 MG in SODIUM CHLORIDE 0.9% 100 ML IVPB SCH (10:24)
--- NOTE | 2019-02-27 11:00 | P.DS ---
Providers Date of admission: 02/23/19 23:16 Expected date of discharge: 02/27/19 Attending physician: Paramjit Garibay Consults: 02/23/19 23:57 Consult Physician Routine Consulting Provider: Zoey Archer Consult Reason/Comments: CKD Do you want consulting provider notified?: Yes 02/24/19 12:13 Consult Physician Routine Consulting Provider: Jerome Gan Consult Reason/Comments: fever Do you want consulting provider notified?: Yes 02/24/19 14:44 Consult Physician Routine Consulting Provider: Kevin Jean-Baptiste Consult Reason/Comments: evaluate for [facility] Do you want consulting provider notified?: Yes Primary care physician: Stated None Hospital Course: Final diagnosis -Sepsis possible source being peritonitis again or urinary tract infection -End-stage renal disease on peritoneal dialysis -Insulin-dependent diabetes mellitus, uncontrolled blood sugars -Anemia of chronic disease -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 Patient will continue with peritoneal dialysis per nephrology recommendations. Patient will also continue with IV antibiotics in the form of Zosyn every 12 hours per infectious disease recommendations. Total time taken is 35 minutes. History of present illness This is a pleasant 63-year-old female with a known history of end-stage renal disease and peritoneal dialysis dependent and was recently admitted for possible peritonitis with fevers of unknown origin and was being closely monitored. During hospitalization patient was started on IV antibiotics and infectious disease was consulted and will continue to follow while at the inpatient rehab as well. Urine culture finalization showed Pseudomonas aeruginosa along with gram-negative bacilli which is sensitive to Zosyn. During hospitalization patient continued to receive peritoneal dialysis which is currently increased to every 4 hours per nephrology recommendations. Patient will continue to be followed at [facility] by nephrology. During hospitalization patient's blood sugars continue to be elevated and uncontrolled and was currently being covered with an insulin sliding scale as we're awaiting her insulin pump supplies from home from family which she states is being brought in today. Patient will continue to work with PT/OT for strength and mobility. Upon presentation to the hospital patient was febrile and currently has been afebrile for over 24 hours. Patient denies any chest pain, shortness of breath, or palpitations at this time. Patient denies any nausea or vomiting and is tolerating diet. Patient is not eating very much at this time and ensures were added and will be continued. Currently patient's condition is stable and will be transferred to [facility] inpatient rehab. Guarded prognosis. On exam vital signs are stable. Patient is 97.6F, pulse is 64, respirations are 16, blood pressure 118/69, oxygen saturation is 97% on room air. Cardio S1 and S2 are present. Respiratory system shows diminished breath sounds at the bases otherwise clear to auscultation. Abdomen is soft and nontender. Nervous system shows no focal deficits with mild to moderate diffuse weakness Please refer to medication reconciliation sheet for a list of medications. Patient Condition at Discharge: Fair Plan - Discharge Summary Discharge Rx Participant: Yes New Discharge Prescriptions: New Lactulose [Cephulac] 20 gm PO TID PRN ml PRN Reason: Constipation Potassium Chloride ER [K-Dur 10] 10 meq PO DAILY tab.er.prt INSULIN ASPART (NovoLOG) [NovoLOG (formulary)] 0 unit SQ ACHS vial Calcium Acetate [PhosLo] 667 mg PO TID-W/MEALS cap Calcitriol [Rocaltrol] 0.25 mcg PO DAILY cap Acetaminophen Tab [Tylenol] 650 mg PO Q6HR PRN tab PRN Reason: Fever And/ Or Pain Piperacillin-Tazobactam [Zosyn] 3.375 gm IVPB Q12H vial Continue Pantoprazole [Protonix] 40 mg PO DAILY Levothyroxine Sodium [Synthroid] 75 mcg PO DAILY Pravastatin Sodium [Pravachol] 20 mg PO DAILY Clopidogrel [Plavix] 75 mg PO DAILY Meclizine [Antivert] 25 mg PO TID PRN PRN Reason: Vertigo Furosemide [Lasix] 80 mg PO BID Metoprolol Tartrate [Lopressor] 25 mg PO BID #0 tab HYDROcodone/APAP 5-325MG [Endeavor 5-325] 1 tab PO Q6HR PRN PRN Reason: Pain Loperamide [Imodium] 2 mg PO QID PRN PRN Reason: Diarrhea Pregabalin [Lyrica] 50 mg PO BID Apixaban [Eliquis] 2.5 mg PO BID Discontinued Calcium Acetate [PhosLo] 667 mg PO AC-TID Rosio-Thomas 1 tab PO DAILY Acetaminophen Tab [Tylenol] 1,000 mg PO Q8H PRN PRN Reason: Pain Lactulose [Cephulac] 10 gm PO TID PRN #0 ml PRN Reason: Constipation Fluticasone Nasal Robbins [Flonase Nasal Robbins] 1 spray EA NOSTRIL BID Discharge Medication List Levothyroxine Sodium [Synthroid] 75 mcg PO DAILY 10/09/16 [History] Pantoprazole [Protonix] 40 mg PO DAILY 10/09/16 [History] Pravastatin Sodium [Pravachol] 20 mg PO DAILY 10/09/16 [History] Clopidogrel [Plavix] 75 mg PO DAILY 03/11/17 [History] Meclizine [Antivert] 25 mg PO TID PRN 04/26/17 [History] Furosemide [Lasix] 80 mg PO BID 04/23/18 [History] Metoprolol Tartrate [Lopressor] 25 mg PO BID #0 tab 11/15/18 [Rx] HYDROcodone/APAP 5-325MG [Endeavor 5-325] 1 tab PO Q6HR PRN 01/04/19 [History] Loperamide [Imodium] 2 mg PO QID PRN 01/04/19 [History] Pregabalin [Lyrica] 50 mg PO BID 01/04/19 [History] Apixaban [Eliquis] 2.5 mg PO BID 02/23/19 [History] Acetaminophen Tab [Tylenol] 650 mg PO Q6HR PRN tab 02/27/19 [Rx] Calcitriol [Rocaltrol] 0.25 mcg PO DAILY cap 02/27/19 [Rx] Calcium Acetate [PhosLo] 667 mg PO TID-W/MEALS cap 02/27/19 [Rx] INSULIN ASPART (NovoLOG) [NovoLOG (formulary)] 0 unit SQ ACHS vial 02/27/19 [Rx] Lactulose [Cephulac] 20 gm PO TID PRN ml 02/27/19 [Rx] Piperacillin-Tazobactam [Zosyn] 3.375 gm IVPB Q12H vial 02/27/19 [Rx] Potassium Chloride ER [K-Dur 10] 10 meq PO DAILY tab.er.prt 02/27/19 [Rx] Follow up Appointment(s)/Referral(s): Jerome Ring MD [Medical Doctor] - 1-2 days Activity/Diet/Wound Care/Special Instructions: Patient will be going to [facility] inpatient rehab Activity as tolerated Continue working with PT/OT Patient is being followed by nephrology and will continue at this time. Patient is being followed by infectious disease and will continue at this time. Continue with current antibiotics in the form of IV Zosyn every 12 hours Continue with current diet Continue to monitor blood sugar before meals at bedtime and treat with sliding scale. Patient normally uses an insulin pump and awaiting the supplies from family to bring in today. Continue with ensure drinks due to poor oral intake Continue with peritoneal dialysis every 4 hours per nephrology Discharge Disposition: OTHER INSTITUTION NOT DEFINED
[2019-02-27 11:47] LABS: Glucose,Whole Blood 351 mg/dL (75-99)
[2019-02-27] MEDS ORDERED: DIALYSIS (PERIT 4.25%) 2500 ML 106.25 G/2,500 ML BAG INTRAPERIT SCH (12:00)
[2019-02-28] MEDS ORDERED: POTASSIUM CHLORIDE ER 10 MEQ TAB.ER.PRT PO SCH (09:00)
--- NOTE | 2019-03-06 02:21 | CDI ---
Documentation Clarification Form Date: 03/06/19 From: Artur Mathur Phone: If you have a question about this query, please contact Brenda Macdonald, Bow Rehairer at [phone] between 8am and 5pm. Admit Date: 02/23/19 Discharge Date:02/27/19 Patient Name: Kendra Cedillo Visit Number: [id number] ATTENTION: The Clinical Documentation Specialists (CDI) and [facility] Coding Staff appreciate your assistance in clarifying documentation. Please respond to the clarification below the line at the bottom and electronically sign. The CDI & [facility] Coding staff will review the response and follow-up if needed. Please note: Queries are made part of the Legal Health Record. If you have any questions, please contact the author of this message via ITS. Dear Paramjit Ziegler, The patient presented with fever and found to have sepsis and UTI with pseudomonus. Sepsis possible source the being peritonitis again.From a peritoneal dialysis catheter site from antibiotics Zosyn and vancomycin in the infectious disease will evaluate the patient for peritoneal dialysis fluid is sent for culture analysis along with blood culture. History/Risk Factors: Peritonel dialysis catheter, ESRD, Peritonitis. Clinical Indicators: Lab findings: Gram Stain, Body Fluid -No Organisms Seen ; UTI - positive pseudomonas. Vital Signs:Pulse Rate 82 Respiratory 18 Treatment: IV antibiotics Consults :Semaj Chu. Patient's Peritoneal dialysis catheter culture negative(No Organisms Seen) and Urine culture shows pseudomonas. Discharge note stated as "Sepsis possible source being peritonitis again or urinary tract infection". In your professional opinion, can you please clarify Sepsis source? Sepsis due to UTI Sepsis due to Peritonitis from Peritoneal dialysis catheter. Peritonitis Ruled out. Other, please specify Sepsis due to UTI MTDD
== END 2019-02-27 14:05 | DRG 871 ==
LOC: EC 20:27 → 4SSUR 23:16
PROVIDERS: ADMIT Hospitalist; ATTEND Hospitalist
PROC: 3E1M39Z Irrigation of Peritoneal Cavity using Dialysate, Percutaneous Approach (ICD-10-PCS; principal; 2019-02-23)
DX: A41.52 Sepsis due to Pseudomonas (principal); N18.6 End stage renal disease; Z68.41 Body mass index [BMI] 40.0-44.9, adult; I12.0 Hypertensive chronic kidney disease with stage 5 chronic kidney disease or end stage renal disease; N39.0 Urinary tract infection, site not specified; E11.22 Type 2 diabetes mellitus with diabetic chronic kidney disease; K21.9 Gastro-esophageal reflux disease without esophagitis; E03.9 Hypothyroidism, unspecified; E78.5 Hyperlipidemia, unspecified; E11.40 Type 2 diabetes mellitus with diabetic neuropathy, unspecified; E11.319 Type 2 diabetes mellitus with unspecified diabetic retinopathy without macular edema; F41.9 Anxiety disorder, unspecified; F32.9 Major depressive disorder, single episode, unspecified; M08.20 Juvenile rheumatoid arthritis with systemic onset, unspecified site; D63.1 Anemia in chronic kidney disease; E83.51 Hypocalcemia; E83.42 Hypomagnesemia; K59.00 Constipation, unspecified; E87.6 Hypokalemia; E83.89 Other disorders of mineral metabolism; E66.01 Morbid (severe) obesity due to excess calories; R41.3 Other amnesia; E11.65 Type 2 diabetes mellitus with hyperglycemia; E86.0 Dehydration; L97.522 Non-pressure chronic ulcer of other part of left foot with fat layer exposed; R53.81 Other malaise; E11.621 Type 2 diabetes mellitus with foot ulcer; E87.70 Fluid overload, unspecified; Z96.41 Presence of insulin pump (external) (internal); Z79.890 Hormone replacement therapy; Z87.891 Personal history of nicotine dependence; Z83.3 Family history of diabetes mellitus; Z82.49 Family history of ischemic heart disease and other diseases of the circulatory system; Z80.0 Family history of malignant neoplasm of digestive organs; Z79.4 Long term (current) use of insulin; Z79.02 Long term (current) use of antithrombotics/antiplatelets; Z79.01 Long term (current) use of anticoagulants; Z79.899 Other long term (current) drug therapy; Z88.8 Allergy status to other drugs, medicaments and biological substances; Z99.2 Dependence on renal dialysis; Z89.511 Acquired absence of right leg below knee; Z97.13 Presence of artificial right leg (complete) (partial); Z86.14 Personal history of Methicillin resistant Staphylococcus aureus infection; Z98.890 Other specified postprocedural states; Z90.710 Acquired absence of both cervix and uterus; Z98.1 Arthrodesis status
CPT/HCPCS: 36415; 71046; 80048; 80053; 80202; 82550; 82728; 83540; 83550; 83605; 83735; 83970; 84100; 84484; 85025; 85027; 85610; 85730; 87040; 87070; 87077; 87086; 87186; 87205; 87502; 89050; 93005; 96361; 96365; 99285

== ENCOUNTER 2019-07-27 06:43 | Inpatient (IN) | payer MEDICARE ==
[2019-07-27] MEDS ORDERED: ONDANSETRON 4 MG/2 ML VIAL IVP STA (06:47)
[2019-07-27] MEDS ORDERED: SODIUM CHLORIDE 0.9% 1,000 ML IV STA (06:47)
[2019-07-27 06:53] LABS: Glucose,Whole Blood 251 mg/dL (75-99)
--- NOTE | 2019-07-27 06:59 | ED ---
Abdominal Pain HPI - General Chief Complaint: Abdominal Pain Stated Complaint: Abdominal Pain Time Seen by Provider: 07/27/19 06:47 Source: patient, EMS, RN notes reviewed Mode of arrival: EMS Limitations: no limitations - History of Present Illness Initial Comments: This a 63-year-old female presents emergency department via EMS chief complaint of lower abdominal pain. Patient states she's had pain over the last 24 hours. Patient has associated nausea, vomiting, diarrhea. Patient denies any known fever. Patient does do peritoneal dialysis has been doing this for over 2 years. Patient states pain is primarily around her site. Patient denies any chest pain, shortness breath, dysuria. Patient denies any flank pain. Patient denies any other complaints. - Related Data Home Medications Medication Instructions Recorded Confirmed Levothyroxine Sodium [Synthroid] 75 mcg PO DAILY 10/09/16 02/23/19 Pantoprazole [Protonix] 40 mg PO DAILY 10/09/16 02/23/19 Pravastatin Sodium [Pravachol] 20 mg PO DAILY 10/09/16 02/23/19 Clopidogrel [Plavix] 75 mg PO DAILY 03/11/17 02/23/19 Meclizine [Antivert] 25 mg PO TID PRN 04/26/17 02/23/19 Furosemide [Lasix] 80 mg PO BID 04/23/18 02/23/19 HYDROcodone/APAP 5-325MG [[place] 1 tab PO Q6HR PRN 01/04/19 02/23/19 5-325] Loperamide [Imodium] 2 mg PO QID PRN 01/04/19 02/23/19 Pregabalin [Lyrica] 50 mg PO BID 01/04/19 02/23/19 Apixaban [Eliquis] 2.5 mg PO BID 02/23/19 02/23/19 Previous Rx's Medication Instructions Recorded Metoprolol Tartrate [Lopressor] 25 mg PO BID #0 tab 11/15/18 Acetaminophen Tab [Tylenol] 650 mg PO Q6HR PRN tab 02/27/19 Calcitriol [Rocaltrol] 0.25 mcg PO DAILY cap 02/27/19 Calcium Acetate [PhosLo] 667 mg PO TID-W/MEALS cap 02/27/19 INSULIN ASPART (NovoLOG) [NovoLOG 0 unit SQ ACHS vial 02/27/19 (formulary)] Lactulose [Cephulac] 20 gm PO TID PRN ml 02/27/19 Piperacillin-Tazobactam [Zosyn] 3.375 gm IVPB Q12H vial 02/27/19 Potassium Chloride ER [K-Dur 10] 10 meq PO DAILY tab.er.prt 02/27/19 Allergies Allergy/AdvReac Type Severity Reaction Status Date / Time gabapentin Allergy Rash/Hives Verified 02/23/19 21:32 lisinopril AdvReac Cough Verified 02/23/19 21:32 Review of Systems ROS Statement: Those systems with pertinent positive or pertinent negative responses have been documented in the HPI. ROS Other: All systems not noted in ROS Statement are negative. Past Medical History Past Medical History: Diabetes Mellitus, Dialysis, GERD/Reflux, Hyperlipidemia, Hypertension, Memory Impairment, Renal Disease, Thyroid Disorder Additional Past Medical History / Comment(s): peritoneal dialysis daily over night. hx stil syndrome left hand-please use rt arm/hand for iv, blood draws. 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 neck cerv ical 4,5,6 fused. graft tie off 04/05/2017, eye laser surgery for diabetic retinopathy Past Anesthesia/Blood Transfusion Reactions: No Reported Reaction Past Psychological History: Anxiety, Depression Smoking Status: Never smoker Past Alcohol Use History: None Reported Past Drug Use History: None Reported - Past Family History Mother Family Medical History: Diabetes Mellitus, Hypertension Additional Family Medical History / Comment(s): colon ca Father Family Medical History: Myocardial Infarction ([place]) General Exam General appearance: alert, in no apparent distress Head exam: Present: atraumatic, normocephalic, normal inspection Eye exam: Present: normal appearance, PERRL, EOMI. Absent: scleral icterus, conjunctival injection, periorbital swelling Respiratory exam: Present: normal lung sounds bilaterally. Absent: respiratory distress, wheezes, rales, rhonchi, stridor Cardiovascular Exam: Present: regular rate, normal rhythm, normal heart sounds. Absent: systolic murmur, diastolic murmur, rubs, gallop, clicks GI/Abdominal exam: Present: soft, tenderness (Moderate lower with diffuse abdominal tenderness), normal bowel sounds. Absent: distended, guarding, rebound, rigid Back exam: Absent: CVA tenderness (R), CVA tenderness (L) Neurological exam: Present: alert, oriented X3 Skin exam: Present: warm, dry, intact, normal color. Absent: rash Course Vital Signs 07/27/19 06:45 Temperature 99.3 F Pulse Rate 70 Respiratory 18 Rate Blood Pressure 150/66 O2 Sat by Pulse 96 Oximetry Medical Decision Making - Medical Decision Making 63-year-old female presents emergency from for abdominal pain. She has diffuse abdominal pain this time. Patient is on peritoneal dialysis and concern for possible spontaneous bacterial peritonitis. Patient was given 1 g or Rocephin will be started on 1 g every 12 hours. Patient currently is elevated which is at her baseline. Patient continues to have diffuse abdominal pain and vomiting. 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 - Lab Data Result diagrams: 07/27/19 07:00 07/27/19 07:00 Lab Results 07/27/19 07/27/19 07/27/19 Range/Units 06:51 07:00 07:00 WBC 9.4 (3.8-10.6) k/uL RBC 3.43 L (3.80-5.40) m/uL Hgb 10.2 L (11.4-16.0) gm/dL Hct 32.6 L (34.0-46.0) % MCV 95.0 (80.0-100.0) fL MCH 29.6 (25.0-35.0) pg MCHC 31.2 (31.0-37.0) g/dL RDW 17.8 H (11.5-15.5) % Plt Count 297 (150-450) k/uL Neutrophils % 88 % Lymphocytes % 6 % Monocytes % 3 % Eosinophils % 1 % Basophils % 0 % Neutrophils # 8.3 H (1.3-7.7) k/uL Lymphocytes # 0.6 L (1.0-4.8) k/uL Monocytes # 0.3 (0-1.0) k/uL Eosinophils # 0.1 (0-0.7) k/uL Basophils # 0.0 (0-0.2) k/uL Hypochromasia Moderate Anisocytosis Slight Sodium 136 L (137-145) mmol/L Potassium 3.4 L (3.5-5.1) mmol/L Chloride 96 L (98-107) mmol/L Carbon Dioxide 26 (22-30) mmol/L Anion Gap 14 mmol/L BUN 40 H (7-17) mg/dL Creatinine 9.97 H* (0.52-1.04) mg/dL Est GFR (CKD-EPI)AfAm 4 (>60 ml/min/1.73 sqM) Est GFR (CKD-EPI)NonAf 4 (>60 ml/min/1.73 sqM) Glucose 249 H (74-99) mg/dL POC Glucose (mg/dL) 251 H (75-99) mg/dL POC Glu Heavy Equipment Operator ID Angela Beth Plasma Lactic Acid James (0.7-2.0) mmol/L Calcium 7.2 L (8.4-10.2) mg/dL Total Bilirubin 0.4 (0.2-1.3) mg/dL AST 15 (14-36) U/L ALT 11 (4-34) U/L Alkaline Phosphatase 75 (38-126) U/L Total Protein 6.0 L (6.3-8.2) g/dL Albumin 2.8 L (3.5-5.0) g/dL Amylase <30 L (30-110) U/L Lipase 57 (23-300) U/L 07/27/19 Range/Units 07:00 WBC (3.8-10.6) k/uL RBC (3.80-5.40) m/uL Hgb (11.4-16.0) gm/dL Hct (34.0-46.0) % MCV (80.0-100.0) fL MCH (25.0-35.0) pg MCHC (31.0-37.0) g/dL RDW (11.5-15.5) % Plt Count (150-450) k/uL Neutrophils % % Lymphocytes % % Monocytes % % Eosinophils % % Basophils % % Neutrophils # (1.3-7.7) k/uL Lymphocytes # (1.0-4.8) k/uL Monocytes # (0-1.0) k/uL Eosinophils # (0-0.7) k/uL Basophils # (0-0.2) k/uL Hypochromasia Anisocytosis Sodium (137-145) mmol/L Potassium (3.5-5.1) mmol/L Chloride (98-107) mmol/L Carbon Dioxide (22-30) mmol/L Anion Gap mmol/L BUN (7-17) mg/dL Creatinine (0.52-1.04) mg/dL Est GFR (CKD-EPI)AfAm (>60 ml/min/1.73 sqM) Est GFR (CKD-EPI)NonAf (>60 ml/min/1.73 sqM) Glucose (74-99) mg/dL POC Glucose (mg/dL) (75-99) mg/dL POC Glu Heavy Equipment Operator ID Plasma Lactic Acid James 1.2 (0.7-2.0) mmol/L Calcium (8.4-10.2) mg/dL Total Bilirubin (0.2-1.3) mg/dL AST (14-36) U/L ALT (4-34) U/L Alkaline Phosphatase (38-126) U/L Total Protein (6.3-8.2) g/dL Albumin (3.5-5.0) g/dL Amylase (30-110) U/L Lipase (23-300) U/L Disposition Clinical Impression: End stage renal disease on dialysis, Abdominal pain, Peritonitis associated with peritoneal dialysis, Nausea & vomiting Disposition: ADMITTED IP TO THIS HOSP Condition: Serious Referrals: Kyeur Pettit [Primary Care Provider] - 1-2 days
[2019-07-27 07:17] LABS: Anisocytosis Slight; Basophils % (A) 0 %; Eosinophils # (A) 0.1 k/uL (0-0.7); Eosinophils % (A) 1 %; HCT 32.6 % (34.0-46.0); HGB 10.2 gm/dL (11.4-16.0); Hypochromasia Moderate; Lymphocytes # (A) 0.6 k/uL (1.0-4.8); Lymphocytes % (A) 6 %; MCH 29.6 pg (25.0-35.0); MCHC 31.2 g/dL (31.0-37.0); Mean Platelet Volume 10.8; Monocytes # (A) 0.3 k/uL (0-1.0); Monocytes % (A) 3 %; Neutrophils # (A) 8.3 k/uL (1.3-7.7); Neutrophils % (A) 88 %; Platelet Count 297 k/uL (150-450); RBC 3.43 m/uL (3.80-5.40); RDW 17.8 % (11.5-15.5); WBC 9.4 k/uL (3.8-10.6)
[2019-07-27] MEDS ORDERED: METOCLOPRAMIDE 5 MG/ML 2 ML VIAL IVP STA (07:39)
[2019-07-27] MEDS ORDERED: MORPHINE SULFATE 4 MG/ML SYRINGE IVP STA (07:39)
[2019-07-27] MEDS ORDERED: diphenhydrAMINE 50 MG/ML 1 ML VIAL IVP STA (07:39)
--- NOTE | 2019-07-27 07:50 | CT ---
EXAMINATION TYPE: CT abdomen pelvis wo con DATE OF EXAM: 07/27/2019 COMPARISON: Previous study dated 11/08/2018 HISTORY: Pain at dialysis catheter site CT DLP: 1603.2 mGycm Automated exposure control for dose reduction was used. FINDINGS: There are small, bilateral effusions. There is some relaxation atelectasis in the dependent portions of the lungs. The heart is mildly enlarged. There is no pericardial fluid. There is a small, sliding hiatal hernia. Within the abdomen, there is a small amount of free air. There is dialysate within the abdomen. There is a peritoneal dialysis catheter in place. This is coiled in the right lower quadrant. The liver is normal in size without biliary dilatation. The gallbladder is contracted. The spleen is normal. Both adrenal glands appear normal. There is no evidence of hydronephrosis or nephrolithiasis. Limited views of the pancreas are unremarkable. There is no significant retroperitoneal, iliac or inguinal adenopathy. The bladder is not distended. The uterus and ovaries are not visualized. There is no significant diverticular change and there is no radiographic evidence of diverticulitis There are degenerative changes in both hips. There is degenerative disc disease and a vacuum phenomen a present at L3-4. No other bony lesion is seen. IMPRESSION: 1. FREE FLUID IN THE ABDOMEN WELL SOME FREE AIR CONSISTENT WITH PERITONEAL DIALYSIS. 2. SMALL, BILATERAL PLEURAL EFFUSIONS. 3. SMALL, SLIDING HIATAL HERNIA. 4. MILD CARDIOMEGALY. 5. MOST OF THE RIGHT-SIDED COLON IS COLLAPSED MAKING IT DIFFICULT TO ASSESS COLONIC WALL THICKENING. PLEASE CORRELATE TO EXCLUDE COLITIS. 6. NO DEFINITE ABNORMALITY NOTED THE SITE OF PERITONEAL DIALYSIS INSERTION.
[2019-07-27 07:53] LABS: ALT 11 U/L (4-34); AST 15 U/L (14-36); African American GFR (CKD) 4 (>60 ml/min/1.73 sqM); Albumin 2.8 g/dL (3.5-5.0); Alkaline Phosphatase 75 U/L (38-126); Amylase <30 U/L (30-110); Anion Gap 14 mmol/L; Blood Urea Nitrogen 40 mg/dL (7-17); Calcium 7.2 mg/dL (8.4-10.2); Carbon Dioxide 26 mmol/L (22-30); Chloride 96 mmol/L (98-107); Glucose 249 mg/dL (74-99); Non-African American GFR(CKD) 4 (>60 ml/min/1.73 sqM); Potassium 3.4 mmol/L (3.5-5.1); Sodium 136 mmol/L (137-145); Total Bilirubin 0.4 mg/dL (0.2-1.3)
[2019-07-27] MEDS ORDERED: ONDANSETRON 4 MG/2 ML VIAL IVP PRN (08:21)
[2019-07-27] MEDS ORDERED: HYDROcodone/APAP 5-325MG 1 EACH TAB PO PRN (08:21)
[2019-07-27] MEDS ORDERED: NALOXONE 0.4 MG/ML 1 ML VIAL IV PRN (08:21)
--- NOTE | 2019-07-27 10:50 | P.HPIM ---
History of Present Illness H&P Date: 07/27/19 Chief Complaint: Abdominal pain The patient is a 63-year-old -[place] female with a past medical history of type 2 diabetes, essential hypertension, end-stage renal disease on peritoneal dialysis, hypothyroidism, GERD, right BKA who presents to the ER via EMS with chief complaints of lower abdominal pain. The patient reports severe right sided crampy and sharp abdominal pain beginning at approximately 11 PM last night around her insertion of her peritoneal catheter, she reports radiation all over her abdomen and she had episodes of nonbloody nonbilious emesis after vomiting up her food last evening. She denies any subjective fevers chills or night sweats, she reports episodes of loose stools since last night. She denies any cough, denies sore throat, denies shortness of breath, she does complain of right shoulder pain and headache. She reports some fatigue and weakness. The patient does report a chronic left heel pressure ulcer for which she attends wound care with Dr. Jaramillo and has daily dressing changes with Santyl applied The patient was evaluated in the ER abnormal labs included a hemoglobin of 10.2 , sodium 136 , potassium 3.4 , BUN 40 , creatinine 9.97 , blood sugar 249 , serum calcium 7.2, lipase 57. CT abdomen and pelvis performed in the ER indicated free fluid in the abdomen but some free air consistent with peritoneal dialysis, small bilateral pleural effusions , mild cardiomegaly , noted difficulty with evaluation as right sided colon is collapsed, no definite abnormality noted the side of peritoneal dialysis insertion. The patient was afebrile and hemodynamically stable and was given a dose of Rocephin and admitted for concern for SBP Review of Systems Pertinent positives per HPI all other review of systems otherwise negative Past Medical History Past Medical History: Diabetes Mellitus, Dialysis, GERD/Reflux, Hyperlipidemia, Hypertension, Memory Impairment, Renal Disease, Thyroid Disorder Additional Past Medical History / Comment(s): peritoneal dialysis daily over night. hx stil syndrome left hand-please use rt arm/hand for iv, blood draws. 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 neck cervical 4,5,6 fused. graft tie off 04/05/2017, eye laser surgery for diabetic retinopathy Past Anesthesia/Blood Transfusion Reactions: No Reported Reaction Past Psychological History: Anxiety, Depression Smoking Status: Never smoker Past Alcohol Use History: None Reported Past Drug Use History: None Reported - Past Family History Mother Family Medical History: Diabetes Mellitus, Hypertension Additional Family Medical History / Comment(s): colon ca Father Family Medical History: Myocardial Infarction ([place]) Medications and Allergies Home Medications Medication Instructions Recorded Confirmed Type Levothyroxine Sodium [Synthroid] 75 mcg PO DAILY 10/09/16 07/27/19 History Pantoprazole [Protonix] 40 mg PO DAILY 10/09/16 07/27/19 History Clopidogrel [Plavix] 75 mg PO DAILY 03/11/17 07/27/19 History Meclizine [Antivert] 25 mg PO TID PRN 04/26/17 07/27/19 History Furosemide [Lasix] 80 mg PO BID 04/23/18 07/27/19 History Metoprolol Tartrate [Lopressor] 25 mg PO BID #0 tab 11/15/18 07/27/19 Rx Acetaminophen Tab [Tylenol] 650 mg PO Q6HR PRN tab 02/27/19 07/27/19 Rx Calcium Acetate [PhosLo] 667 mg PO TID-W/MEALS cap 02/27/19 07/27/19 Rx Potassium Chloride ER [K-Dur 10] 10 meq PO DAILY tab.er.prt 02/27/19 07/27/19 Rx Calcitriol [Rocaltrol] 0.25 mcg PO Q7D 07/27/19 07/27/19 History Collagenase [Santyl] 1 applic TOPICAL DAILY 07/27/19 07/27/19 History Epoetin Edgardo [Procrit] 40,000 unit SQ MOWEFR 07/27/19 07/27/19 History Escitalopram [Lexapro] 10 mg PO DAILY 07/27/19 07/27/19 History Insulin Glargine [Lantus] 26 unit SQ HS 07/27/19 07/27/19 History Midodrine HCl [ProAmatine] 10 mg PO MOWEFR 07/27/19 07/27/19 History Pregabalin [Lyrica] 50 mg PO BID 07/27/19 07/27/19 History Rosio-Thomas 1 tab PO DAILY 07/27/19 07/27/19 History Torsemide [Demadex] 100 mg PO DAILY 07/27/19 07/27/19 History Allergies Allergy/AdvReac Type Severity Reaction Status Date / Time gabapentin Allergy Rash/Hives Verified 07/27/19 11:01 lisinopril AdvReac Cough Verified 07/27/19 11:01 Physical Exam Vitals: Vital Signs Temp Pulse Resp BP Pulse Ox 07/27/19 09:23 73 18 139/61 96 07/27/19 09:16 20 07/27/19 06:45 99.3 F 70 18 150/66 96 Intake and Output 07/26/19 07/27/19 07/27/19 22:59 06:59 14:59 Other: Weight 104.326 kg Constitutional: No acute distress, conversant, pleasant Eyes: Anicteric sclerae, moist conjunctiva, no lid-lag, PERRLA ENMT: NC/AT,Oropharynx clear, no erythema, exudates Neck:Supple, FROM, no masses, or JVD, No carotid bruits; No thyromegaly Lungs: Clear to auscultation, Clear to percussion, Normal respiratory effort, no accessory muscle use Cardiovascular: Heart regular in rate and rhythm, No murmurs, gallops, or rubs no peripheral edema Abdominal: Tender to palpation on the right lower abdomen around insertion of peritoneal catheter, mildly distended, hypoactive bowel sounds Skin: Normal temperature, tone, texture, turgor, No induration No subcutaneous nodules, reports left heel ulcer not visualized Extremities: Right leg actually BKA, left left foot dressed and bandaged with Kerlix without any noted drainage Psychiatric: Alert and oriented to person, place and time, Appropriate affect Intact judgement Neuro: Muscles Strength 5/5 in all 4 extremities, Sensation to light touch grossly present throughout, Cranial nerves II-XII grossly intact. No focal sensory deficits . Results CBC & Chem 7: 07/27/19 07:00 07/27/19 07:00 Labs: Abnormal Lab Results - Last 24 Hours (Table) 07/27/19 07/27/19 07/27/19 Range/Units 06:51 07:00 07:00 RBC 3.43 L (3.80-5.40) m/uL Hgb 10.2 L (11.4-16.0) gm/dL Hct 32.6 L (34.0-46.0) % RDW 17.8 H (11.5-15.5) % Neutrophils # 8.3 H (1.3-7.7) k/uL Lymphocytes # 0.6 L (1.0-4.8) k/uL Sodium 136 L (137-145) mmol/L Potassium 3.4 L (3.5-5.1) mmol/L Chloride 96 L (98-107) mmol/L BUN 40 H (7-17) mg/dL Creatinine 9.97 H* (0.52-1.04) mg/dL Glucose 249 H (74-99) mg/dL POC Glucose (mg/dL) 251 H (75-99) mg/dL Calcium 7.2 L (8.4-10.2) mg/dL Total Protein 6.0 L (6.3-8.2) g/dL Albumin 2.8 L (3.5-5.0) g/dL Amylase <30 L (30-110) U/L Assessment and Plan Assessment: Abdominal pain End-stage renal disease on peritoneal dialysis Essential hypertension Type 2 diabetes with peripheral neuropathy Hypothyroidism GERD Anemia of chronic disease 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 The patient was started on empiric antibiotics due to concern for SBP despite limited ascites, we'll hold off on any further antibiotics, of note patient is afebrile without leukocytosis and does not need sepsis or sirs criteria. Will consult ID for further recommendations. Continue supportive therapy with morphine and Zofran. Consult nephrology for further recommendations as patient's next scheduled dialysis is supposed to be for tomorrow. We'll continue to follow her clinical course. The patient's home medications have not been reconciled as yet. CODE STATUS: Full code Anticipated discharge: Home versus care home Discussed plan of care with: Patient ER physician Prophylaxis: PPI therapy and heparin
[2019-07-27] MEDS ORDERED: MECLIZINE 25 MG TAB PO PRN (11:28)
[2019-07-27] MEDS ORDERED: ACETAMINOPHEN TAB 325 MG TAB PO PRN (11:28)
[2019-07-27] MEDS: CALCIUM ACETATE 667 MG TAB PO SCH ×2 (12:21→17:25)
--- NOTE | 2019-07-27 13:08 | P.NPCON ---
History of Present Illness - Reason for Consult Consult date: 07/27/19 end stage renal disease - Chief Complaint Abdominal pain, likely peritonitis - History of Present Illness This is a 63-year-old female known to us with ESRD on hemodialysis initially but currently on peritoneal dialysis for the last 2 years approximately. She came in because of abdominal pain and likely has peritonitis. Pain started about 2 days ago. No fever chills no nausea vomiting diarrhea She is known with right BKA remote, has an ongoing ulcer on the left foot, history of hysterectomy previous fistulous and permacath. She is a chronic old smoker who has quit few years ago She had 1 episode of peritonitis previously supposedly in September 2018 . More recently she was here with Pseudomonas in her urine tract infection in December 2018 Past Medical History Past Medical History: Diabetes Mellitus, Dialysis, GERD/Reflux, Hyperlipidemia, Hypertension, Memory Impairment, Renal Disease, Thyroid Disorder Additional Past Medical History / Comment(s): peritoneal dialysis daily over night. hx stil syndrome left hand-please use rt arm/hand for iv, blood draws. 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 neck cervical 4,5,6 fused. graft tie off 04/05/2017, eye laser surgery for diabetic retinopathy Past Anesthesia/Blood Transfusion Reactions: No Reported Reaction Past Psychological History: Anxiety, Depression Smoking Status: Never smoker Past Alcohol Use History: None Reported Past Drug Use History: None Reported - Past Family History Mother Family Medical History: Diabetes Mellitus, Hypertension Additional Family Medical History / Comment(s): colon ca Father Family Medical History: Myocardial Infarction ([place]) Medications and Allergies Home Medications Medication Instructions Recorded Confirmed Type Levothyroxine Sodium [Synthroid] 75 mcg PO DAILY 10/09/16 07/27/19 History Pantoprazole [Protonix] 40 mg PO DAILY 10/09/16 07/27/19 History Clopidogrel [Plavix] 75 mg PO DAILY 03/11/17 07/27/19 History Meclizine [Antivert] 25 mg PO TID PRN 04/26/17 07/27/19 History Furosemide [Lasix] 80 mg PO BID 04/23/18 07/27/19 History Metoprolol Tartrate [Lopressor] 25 mg PO BID #0 tab 11/15/18 07/27/19 Rx Acetaminophen Tab [Tylenol] 650 mg PO Q6HR PRN tab 02/27/19 07/27/19 Rx Calcium Acetate [PhosLo] 667 mg PO TID-W/MEALS cap 02/27/19 07/27/19 Rx Potassium Chloride ER [K-Dur 10] 10 meq PO DAILY tab.er.prt 02/27/19 07/27/19 Rx Calcitriol [Rocaltrol] 0.25 mcg PO Q7D 07/27/19 07/27/19 History Collagenase [Santyl] 1 applic TOPICAL DAILY 07/27/19 07/27/19 History Epoetin Edgardo [Procrit] 40,000 unit SQ MOWEFR 07/27/19 07/27/19 History Escitalopram [Lexapro] 10 mg PO DAILY 07/27/19 07/27/19 History Insulin Glargine [Lantus] 26 unit SQ HS 07/27/19 07/27/19 History Midodrine HCl [ProAmatine] 10 mg PO MOWEFR 07/27/19 07/27/19 History Pregabalin [Lyrica] 50 mg PO BID 07/27/19 07/27/19 History Rosio-Thomas 1 tab PO DAILY 07/27/19 07/27/19 History Torsemide [Demadex] 100 mg PO DAILY 07/27/19 07/27/19 History Allergies Allergy/AdvReac Type Severity Reaction Status Date / Time gabapentin Allergy Rash/Hives Verified 07/27/19 11:01 lisinopril AdvReac Cough Verified 07/27/19 11:01 Physical Exam Vitals: Vital Signs Temp Pulse Pulse Resp BP BP Pulse Ox 07/27/19 12:20 98.2 F 87 16 110/67 95 07/27/19 09:57 98.3 F 76 18 135/70 93 L 07/27/19 09:23 73 18 139/61 96 07/27/19 09:16 20 07/27/19 06:45 99.3 F 70 18 150/66 96 Intake and Output 07/26/19 07/27/1920 22:59 06:59 14:59 Other: Weight 104.326 kg On examination she is awake alert oriented comfortable but in some pain HEENT exam no JVP neck supple no facial asymmetry Lungs are clear to auscultation good air entry bilaterally Heart sounds are unremarkable for any murmur rub gallop Abdomen soft but tender exit site of the PD catheter is clean Extremity exam reveals BKA on the right and minimal edema on the left Neurologically awake alert oriented Results - Lab Results Most recent lab results Calcium 7.2 mg/dL (8.4-10.2) L 07/27/19 07:00 07/27/19 07:00 07/27/19 07:00 Assessment and Plan Assessment: Impression 1. ESRD on peritoneal dialysis for the last approximately 2 years. Admitted with abdominal pain and likely peritonitis. 2. Diabetes mellitus. 3. Remote BKA right 4. Ulcer on the left foot 5. Anemia of ESRD, hemoglobin 10.2 at target 6. Mild hypokalemia secondary to decreased intake Recommendation 1. Will obtain stat Gram stain culture and cell count of the PD fluid 2. Give her intraperitoneal 2 g and: 1 g of ceftazidime 3. Start. PD manual 2.5 L 2.5% and keep strict I's and O's 4. Watch her blood sugars closely Thank you for this consultation and we'll continue to follow
[2019-07-27] MEDS ORDERED: CEFTAZIDIME INTRAPERIT SCH (14:00)
[2019-07-27] MEDS ORDERED: VANCOMYCIN INTRAPERIT SCH (14:00)
[2019-07-27] MEDS ORDERED: DIALYSIS DEX INTRAPERIT SCH (14:00)
[2019-07-27] MEDS ORDERED: DARBEPOETIN ALFA 40 MCG/0.4 ML SYRINGE SQ SCH (15:00)
[2019-07-27] MEDS: MORPHINE SULFATE 4 MG/ML SYRINGE IV PRN ×2 (15:36→21:10)
[2019-07-27] MEDS: DIALYSIS (PERIT 2.5%) 2,500 ML 62.5 G/2,500 ML BAG INTRAPERIT SCH (20:27)
[2019-07-27 20:28] LABS: Color,BF Yellow
[2019-07-27 20:29] LABS: Appearance,BF Cloudy; Nucleated Cells, Body Fluid 2765 /uL; RBC, Body Fluid 35 /uL
[2019-07-27 20:40] LABS: Glucose,Whole Blood 197 mg/dL (75-99)
[2019-07-27] MEDS ORDERED: INSULIN DETEMIR (LEVEMIR) 100 UNIT/ML SYR SQ SCH (21:00)
[2019-07-27 21:03] LABS: Mononuclear WBC,Body Fluid 4 %; Polynuclear WBC,Body Fluid 96 %; Total Cells Counted,Body Fluid 100
[2019-07-27] MEDS: PREGABALIN 50 MG CAP PO SCH (21:11)
[2019-07-27] MEDS: HEPARIN SODIUM,PORCINE 5,000 UNIT/ML 1 ML VIAL SQ SCH (21:11)
[2019-07-27] MEDS: METOPROLOL TARTRATE 25 MG TAB PO SCH (21:11)
[2019-07-27] MEDS: Insulin Aspart (For Pump) 100 UNIT/ML VIAL SQ-PUMP SCH (23:34)
[2019-07-27] MEDS: COLLAGENASE 250 UNIT/GM OINTMENT 30 GM TUBE TOPICAL SCH (23:35)
--- NOTE | 2019-07-27 23:43 | P.CONS ---
History of Present Illness - Reason for Consult Consult date: 07/27/19 peritonitis Requesting physician: Jeffrey Desai - Chief Complaint abdominal pain x few days - History of Present Illness Patient is a 63-year-old -[place] female with a past medical history significant for end-stage renal disease currently on peritoneal dialysis for the last 2 years patient is presenting to the ER with chief complaints of abdominal pain that has been going on for the last few days patient describes the pain to this patient describes the pain to be generalized sharp intensity almost 10 out of 10 in severity with associated nausea no vomiting and denies having any diarrhea patient did have some chills but denies high-grade fever on presentation the hospital patient did have low-grade fever of 99.3-99.7 no tachycardia white count was normal CT abdominal pelvis was done some fluid but no other acute abnormality patient did have a peritoneal fluid sent for analysis which was cloudy with a white count of 2765 patient received a dose of vancom ycin and Fortaz and had dialysis late interestingly was consulted for further recommendation about antibiotic therapy patient will also have a wound on her left foot for the patient currently follows at the wound care center and local wound care has been Santyl Review of Systems positive point has been mentioned in HPI rest of the systems are negative. Past Medical History Past Medical History: Diabetes Mellitus, Dialysis, GERD/Reflux, Hyperlipidemia, Hypertension, Memory Impairment, Renal Disease, Thyroid Disorder Additional Past Medical History / Comment(s): peritoneal dialysis daily over night. hx stil syndrome left hand-please use rt arm/hand for iv, blood draws. 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 neck cervical 4,5,6 fused. graft tie off 04/05/2017, eye laser surgery for diabetic retinopathy Past Anesthesia/Blood Transfusion Reactions: No Reported Reaction Past Psychological History: Anxiety, Depression Smoking Status: Never smoker Past Alcohol Use History: None Reported Past Drug Use History: None Reported - Past Family History Mother Family Medical History: Diabetes Mellitus, Hypertension Additional Family Medical History / Comment(s): colon ca Father Family Medical History: Myocardial Infarction (NC) Medications and Allergies Home Medications Medication Instructions Recorded Confirmed Type Levothyroxine Sodium [Synthroid] 75 mcg PO DAILY 10/09/16 07/27/19 History Pantoprazole [Protonix] 40 mg PO DAILY 10/09/16 07/27/19 History Clopidogrel [Plavix] 75 mg PO DAILY 03/11/17 07/27/19 History Meclizine [Antivert] 25 mg PO TID PRN 04/26/17 07/27/19 History Furosemide [Lasix] 80 mg PO BID 04/23/18 07/27/19 History Metoprolol Tartrate [Lopressor] 25 mg PO BID #0 tab 11/15/18 07/27/19 Rx Acetaminophen Tab [Tylenol] 650 mg PO Q6HR PRN tab 02/27/19 07/27/19 Rx Calcium Acetate [PhosLo] 667 mg PO TID-W/MEALS cap 02/27/19 07/27/19 Rx Potassium Chloride ER [K-Dur 10] 10 meq PO DAILY tab.er.prt 02/27/19 07/27/19 Rx Calcitriol [Rocaltrol] 0.25 mcg PO Q7D 07/27/19 07/27/19 History Collagenase [Santyl] 1 applic TOPICAL DAILY 07/27/19 07/27/19 History Epoetin Edgardo [Procrit] 40,000 unit SQ MOWEFR 07/27/19 07/27/19 History Escitalopram [Lexapro] 10 mg PO DAILY 07/27/19 07/27/19 History Insulin Glargine [Lantus] 26 unit SQ HS 07/27/19 07/27/19 History Midodrine HCl [ProAmatine] 10 mg PO MOWEFR 07/27/19 07/27/19 History Pregabalin [Lyrica] 50 mg PO BID 07/27/19 07/27/19 History Rosio-Thomas 1 tab PO DAILY 07/27/19 07/27/19 History Torsemide [Demadex] 100 mg PO DAILY 07/27/19 07/27/19 History Allergies Allergy/AdvReac Type Severity Reaction Status Date / Time gabapentin Allergy Rash/Hives Verified 07/27/19 11:01 lisinopril AdvReac Cough Verified 07/27/19 11:01 Physical Exam Vitals: Vital Signs Temp Pulse Pulse Resp BP BP Pulse Ox 07/27/19 20:10 98.3 F 67 20 113/67 99 07/27/19 16:00 66 19 113/67 98 07/27/19 15:01 99.7 F H 70 19 144/72 99 07/27/19 12:20 98.2 F 87 16 110/67 95 07/27/19 09:57 98.3 F 76 18 135/70 93 L 07/27/19 09:50 19 07/27/19 09:23 73 18 139/61 96 07/27/19 09:16 20 07/27/19 06:45 99.3 F 70 18 150/66 96 Intake and Output 07/27/19 07/27/19 07/28/19 14:59 22:59 06:59 Intake Total 540 100 Balance 540 100 Intake: Oral 540 100 Other: # Voids 0 # Bowel Movements 1 Weight 104.326 kg GENERAL DESCRIPTION: Elderly female lying in bed, no distress. No tachypnea or accessory muscle of respiration use. HEENT: Shows Pallor , no scleral icterus. Oral mucous membrane is dry. NECK: Trachea central, no thyromegaly. LUNGS: Unlabored breathing. Clear to auscultation anteriorly. No wheeze or crackle. HEART: S1, S2, regular rate and rhythm. ABDOMEN: Soft, mild tenderness ,no guarding or rigidity, PD catheter insertion site with no redness or tunnel infection EXTREMITIES: No edema of feet. SKIN: No rash, no masses palpable. NEUROLOGICAL: The patient is awake, alert, oriented x3, mood and affect normal. Results CBC & Chem 7: 07/27/19 07:00 07/27/19 07:00 Labs: Abnormal Lab Results - Last 24 Hours (Table) 07/27/19 07/27/19 07/27/19 Range/Units 06:51 07:00 07:00 RBC 3.43 L (3.80-5.40) m/uL Hgb 10.2 L (11.4-16.0) gm/dL Hct 32.6 L (34.0-46.0) % RDW 17.8 H (11.5-15.5) % Neutrophils # 8.3 H (1.3-7.7) k/uL Lymphocytes # 0.6 L (1.0-4.8) k/uL Sodium 136 L (137-145) mmol/L Potassium 3.4 L (3.5-5.1) mmol/L Chloride 96 L (98-107) mmol/L BUN 40 H (7-17) mg/dL Creatinine 9.97 H* (0.52-1.04) mg/dL Glucose 249 H (74-99) mg/dL POC Glucose (mg/dL) 251 H (75-99) mg/dL Calcium 7.2 L (8.4-10.2) mg/dL Total Protein 6.0 L (6.3-8.2) g/dL Albumin 2.8 L (3.5-5.0) g/dL Amylase <30 L (30-110) U/L 07/27/19 Range/Units 20:36 RBC (3.80-5.40) m/uL Hgb (11.4-16.0) gm/dL Hct (34.0-46.0) % RDW (11.5-15.5) % Neutrophils # (1.3-7.7) k/uL Lymphocytes # (1.0-4.8) k/uL Sodium (137-145) mmol/L Potassium (3.5-5.1) mmol/L Chloride (98-107) mmol/L BUN (7-17) mg/dL Creatinine (0.52-1.04) mg/dL Glucose (74-99) mg/dL POC Glucose (mg/dL) 197 H (75-99) mg/dL Calcium (8.4-10.2) mg/dL Total Protein (6.3-8.2) g/dL Albumin (3.5-5.0) g/dL Amylase (30-110) U/L Microbiology - Last 24 Hours (Table) 07/27/19 08:16 Body Fluid Culture - Preliminary Dialysate Assessment and Plan Assessment: patient presenting to the hospital with abdominal pain at this patient who do have history of end-stage disease on peritoneal dialysis patient noticed to have a cloudy peritoneal fluid and with elevated white count likely representing peritonitis and likely from gram-positive skin jo such as staph epi with no evidence of any tunnel infection (1) Peritonitis Current Visit: Yes Status: Acute Code(s): K65.9 - PERITONITIS, UNSPECIFIED SNOMED Code(s): 24614055 Plan: 1-vancomycin pharmacy to dose which could be done through the peritoneal dialysis as the patient clinically does not behave like a bacteremic necessitating systemic antibiotics 2-antibiotic will be adjusted further on the basis of culture report We will follow on clinical condition and cultures to further adjust medication if needed Thank you for this consultation we will follow the patient along with you Time with Patient: Greater than 30
[2019-07-28] MEDS: DIALYSIS (PERIT 2.5%) 2,500 ML 62.5 G/2,500 ML BAG INTRAPERIT SCH ×3 (02:13→21:48)
[2019-07-28] MEDS: MORPHINE SULFATE 4 MG/ML SYRINGE IV PRN ×3 (02:23→16:36)
[2019-07-28] MEDS: LEVOTHYROXINE 75 MCG TAB PO SCH (06:08)
[2019-07-28 06:29] LABS: Anisocytosis Slight; Basophils % (A) 1 %; Eosinophils # (A) 0.2 k/uL (0-0.7); Eosinophils % (A) 3 %; HCT 31.2 % (34.0-46.0); HGB 9.4 gm/dL (11.4-16.0); Hypochromasia Marked; Lymphocytes # (A) 0.4 k/uL (1.0-4.8); Lymphocytes % (A) 6 %; MCH 29.7 pg (25.0-35.0); MCHC 30.2 g/dL (31.0-37.0); MCV 98.3 fL (80.0-100.0); Macrocytosis Slight; Mean Platelet Volume 9.8; Monocytes # (A) 0.4 k/uL (0-1.0); Monocytes % (A) 6 %; Neutrophils # (A) 5.4 k/uL (1.3-7.7); Neutrophils % (A) 81 %; Platelet Count 245 k/uL (150-450); RBC 3.17 m/uL (3.80-5.40); WBC 6.6 k/uL (3.8-10.6)
[2019-07-28 06:41] LABS: Albumin 2.6 g/dL (3.5-5.0); Calcium 6.9 mg/dL (8.4-10.2); Potassium 3.3 mmol/L (3.5-5.1); Total Bilirubin 0.5 mg/dL (0.2-1.3); Total Protein 5.8 g/dL (6.3-8.2)
[2019-07-28] MEDS: CALCIUM ACETATE 667 MG TAB PO SCH ×3 (08:02→16:36)
[2019-07-28] MEDS: METOPROLOL TARTRATE 25 MG TAB PO SCH ×3 (08:02→21:49)
[2019-07-28] MEDS: PANTOPRAZOLE 40 MG TABLET PO SCH (08:02)
[2019-07-28] MEDS: ESCITALOPRAM 10 MG TAB PO SCH ×2 (08:02→08:04)
[2019-07-28] MEDS: HEPARIN SODIUM,PORCINE 5,000 UNIT/ML 1 ML VIAL SQ SCH ×2 (08:02→21:49)
[2019-07-28] MEDS: POTASSIUM CHLORIDE ER 10 MEQ TAB.ER.PRT PO SCH (08:02)
[2019-07-28] MEDS: CLOPIDOGREL 75 MG TAB PO SCH (08:02)
[2019-07-28] MEDS: PREGABALIN 50 MG CAP PO SCH ×3 (08:02→21:49)
[2019-07-28] MEDS: Insulin Aspart (For Pump) 100 UNIT/ML VIAL SQ-PUMP SCH ×4 (08:04→22:03)
[2019-07-28] MEDS: COLLAGENASE 250 UNIT/GM OINTMENT 30 GM TUBE TOPICAL SCH (08:05)
[2019-07-28] MEDS ORDERED: POTASSIUM CHLORIDE ER 20 MEQ TAB.ER PO STA (08:57)
--- NOTE | 2019-07-28 08:57 | P.PN ---
Subjective Patient is seen in follow-up for end-stage renal disease. She is maintained on peritoneal dialysis. Currently being treated for peritonitis. Complains of abdominal pain. No vomiting so far today. Vital signs are stable. General: The patient appeared well nourished and normally developed. HEENT: Head exam is unremarkable. Neck is without jugular venous distension. LUNGS: Lungs are clear to auscultation and percussion. Breath sounds decreased. HEART: Rate and Rhythm are regular. First and second heart sounds normal. No murmurs, rubs or gallops. ABDOMEN: Generalized tenderness. EXTREMITITES: 1+ edema. BKA noted. Objective - Vital Signs Vital signs: Vital Signs Temp 97.7 F 07/28/19 07:10 Pulse 58 L 07/28/19 07:10 Resp 16 07/28/19 07:10 BP 98/61 07/28/19 07:10 Pulse Ox 100 07/28/19 07:10 Intake & Output 07/27/19 07/28/19 07/28/19 18:59 06:59 18:59 Intake Total 540 100 Balance 540 100 Weight 104.326 kg Intake: Oral 540 100 Other: Voiding Method Bedpan Diaper Incontinent # Voids 0 # Bowel Movements 1 - Labs CBC & Chem 7: 07/28/19 05:43 07/28/19 05:43 Labs: Abnormal Lab Results - Last 24 Hours (Table) 07/27/19 07/28/19 07/28/19 Range/Units 20:36 05:43 05:43 RBC 3.17 L (3.80-5.40) m/uL Hgb 9.4 L (11.4-16.0) gm/dL Hct 31.2 L (34.0-46.0) % MCHC 30.2 L (31.0-37.0) g/dL RDW 18.0 H (11.5-15.5) % Lymphocytes # 0.4 L (1.0-4.8) k/uL Sodium 133 L (137-145) mmol/L Potassium 3.3 L (3.5-5.1) mmol/L Chloride 96 L (98-107) mmol/L BUN 39 H (7-17) mg/dL Creatinine 9.62 H* (0.52-1.04) mg/dL Glucose 253 H (74-99) mg/dL POC Glucose (mg/dL) 197 H (75-99) mg/dL Calcium 6.9 L (8.4-10.2) mg/dL Total Protein 5.8 L (6.3-8.2) g/dL Albumin 2.6 L (3.5-5.0) g/dL Microbiology - Last 24 Hours (Table) 07/27/19 08:16 Gram Stain - Preliminary Dialysate Body Fluid Culture - Preliminary Assessment and Plan Plan: Assessment: 1. End-stage renal disease maintained on peritoneal dialysis. 2. CAPD associated peritonitis. Initial cell count from July 26 was 2765. 3. Chronic kidney disease mineral bone disease maintained on PhosLo and calcitriol. 4. Anemia of chronic kidney disease maintained on Aranesp. 5. Hypokalemia secondary to PD losses maintained on supplementation. Plan: Maintain current PD changes. Intraperitoneal vancomycin given on July 26. Also started on intraperitoneal ceftazidime on July 26 which will be continued daily. Repeat dialysate cell count, culture and Gram stain today. Replace potassium. 40 mg once today.
[2019-07-28] MEDS ORDERED: COLLAGENASE 250 UNIT/GM OINTMENT 30 GM TUBE TOPICAL SCH (09:00)
[2019-07-28] MEDS ORDERED: CALCITRIOL 0.25 MCG CAP PO SCH (09:00)
[2019-07-28] MEDS ORDERED: MIDODRINE 5 MG TAB PO SCH ×2 (09:00)
[2019-07-28] MEDS ORDERED: DARBEPOETIN ALFA 40 MCG/0.4 ML SYRINGE SQ SCH (09:00)
[2019-07-28] MEDS ORDERED: EPOETIN ALFA 40000 UNIT SQ SCH (09:00)
--- NOTE | 2019-07-28 11:42 | P.PN ---
Subjective Progress Note Date: 07/28/19 Principal diagnosis: abdominal pain Patient is a 63-year-old -[place] female past medical history of type 2 diabetes well-controlled with insulin pump in place, hypertension, end-stage renal disease on peritoneal dialysis, hypothyroidism, GERD, and a right BKA who presented to the ER via EMS secondary to lower abdominal pain. On arrival to the emergency department her vital signs within normal limits. Initial laboratory analysis was consistent with her known chronic anemia and chronic renal failure. She was slightly hyperglycemic with a blood glucose of 249. She was also noted to have a chronic left heel pressure ulcer for which she follows with Dr. Jaramillo. In the ER there is concern for spontaneous bacterial peritonitis and she was started on Rocephin. She is admitted for further monitoring. Nephrology was consulted and she was started on intraperitoneal vancomycin and ceftazidime. Her initial peritoneal fluid showed nucleated white blood cell count of 2765. By the next morning she was feeling much improved. Patient seen and examined at bedside. She is still having some abdominal pain but it is lessening from yesterday. She denies any nausea, vomiting, or diarrhea. She denies any chest pain or shortness of breath. She is concerned she typically uses a cycler for her peritoneal dialysis at home that she has done it manually in the past. She has administered antibiotics through her dialysis during her prior episode of secondary bacterial peritonitis Objective - Vital Signs Vital signs: Vital Signs Temp 98.0 F 07/28/19 09:00 Pulse 62 07/28/19 09:00 Resp 16 07/28/19 09:00 BP 98/61 07/28/19 07:10 Pulse Ox 98 07/28/19 09:00 Intake & Output 07/27/19 07/28/19 07/28/19 18:59 06:59 18:59 Intake Total 540 100 Balance 540 100 Weight 104.326 kg Intake: Oral 540 100 Other: Voiding Method Bedpan Bedpan Diaper Diaper Incontinent Incontinent # Voids 0 # Bowel Movements 1 - Exam General: ill appearing, no distress, appears at stated age Derm: Left heel with dressing in place, warm, dry Head: atraumatic, normocephalic, symmetric Eyes: EOMI, no lid lag, anicteric sclera Mouth: no lip lesion, mucus membranes moist Cardiovascular: S1S2 reg, no murmur, positive posterior tibial pulse left, Lungs: decrease bs bilateral, no rhonchi, no rales , no accessory muscle use Abdominal: soft, nontender to palpation, no guarding, no appreciable organomegaly Ext: no gross muscle atrophy, no edema, no contractures Neuro: CN II-XI grossly intact, no focal neuro deficits Psych: Alert, oriented, appropriate affect - Labs CBC & Chem 7: 07/28/19 05:43 07/28/19 05:43 Labs: Abnormal Lab Results - Last 24 Hours (Table) 07/27/19 07/28/19 07/28/19 Range/Units 20:36 05:43 05:43 RBC 3.17 L (3.80-5.40) m/uL Hgb 9.4 L (11.4-16.0) gm/dL Hct 31.2 L (34.0-46.0) % MCHC 30.2 L (31.0-37.0) g/dL RDW 18.0 H (11.5-15.5) % Lymphocytes # 0.4 L (1.0-4.8) k/uL Sodium 133 L (137-145) mmol/L Potassium 3.3 L (3.5-5.1) mmol/L Chloride 96 L (98-107) mmol/L BUN 39 H (7-17) mg/dL Creatinine 9.62 H* (0.52-1.04) mg/dL Glucose 253 H (74-99) mg/dL POC Glucose (mg/dL) 197 H (75-99) mg/dL Calcium 6.9 L (8.4-10.2) mg/dL Total Protein 5.8 L (6.3-8.2) g/dL Albumin 2.6 L (3.5-5.0) g/dL Microbiology - Last 24 Hours (Table) 07/27/19 07:00 Blood Culture - Preliminary Blood No Growth after 24 hours 07/27/19 08:16 Gram Stain - Preliminary Dialysate Body Fluid Culture - Preliminary Assessment and Plan Assessment: Secondary bacterial peritonitis associated with peritoneal dialysis -Nephrology recommendations appreciated -Patient received vancomycin intraperitoneally peritoneal which will be effective for 5 days, continue with ceftazidime -Await for repeat nucleated cells from peritoneal fluid -Plan is for outpatient intraperitoneal antibiotics -ID recommendations appreciated -Continue with PhosLo Diabetes mellitus type 2 insulin requiring with pump and associated peripheral neuropathy -Continue with insulin pump, follow blood sugars -Check hemoglobin A1c last known is October 2018 with an A1c of 7.1 -Consult staff development educator -Continue with long-acting insulin at 26 units - lyrical Left heel wound -Offload -Continue with Santyl -Continue with dressing Hypertension - controlled - follow BP GERD - PPI Hypothyroidism -Synthroid DVT prophylaxis: Heparin Discussed with: Patient, nursing, Dr. Chu Anticipated discharge: 2-[address]: home A total of 35 minutes was spent on the care of this complex patient more than 50% of the time was spent in counseling and care coordination.
[2019-07-28 11:53] LABS: Glucose, BF Source Peritoneal Fluid; Glucose, Body Fluid 543 mg/dL; LDH, Body Fluid Source Peritoneal Fluid; Total Protein, Body Fluid 577 mg/dL
[2019-07-28 14:40] LABS: Appearance,BF Hazy; Color,BF Colorless; Nucleated Cells, Body Fluid 380 /uL
[2019-07-28 14:41] LABS: RBC, Body Fluid 5 /uL
[2019-07-28 14:44] LABS: Mononuclear WBC,Body Fluid 16 %; Polynuclear WBC,Body Fluid 84 %; Total Cells Counted,Body Fluid 100
[2019-07-28] MEDS: CEFTAZIDIME INTRAPERIT SCH (15:52)
[2019-07-28] MEDS: DIALYSIS DEX INTRAPERIT SCH (15:52)
--- NOTE | 2019-07-29 00:11 | PN ---
PROGRESS NOTE DATE OF SERVICE: 07/28/2019 REASON FOR FOLLOW UP: 1. PD catheter associated peritonitis. 2. Left heel wound. INTERVAL HISTORY: The patient is currently afebrile. The patient is breathing comfortably. Her abdominal pain has decreased in intensity. No nausea, no vomiting. No diarrhea and no pain to the left heel wound area. PHYSICAL EXAMINATION: Blood pressure 118/69 with a pulse of 68, temperature 98.4. She is 95% on 2 L nasal cannula. General description is an elderly female lying in bed in no distress. Respiratory system: Unlabored breathing. Clear to auscultation anteriorly. Heart S1, S2. Regular rate and rhythm. Abdomen soft, less tender. Left heel wound is currently dressed up. No obvious drainage on the dressing. LABS: Hemoglobin 11.4, white count 6.6, BUN of 39, creatinine is 9.62. Peritoneal fluid white count is down to 380. Fluid cultures currently pending. Blood culture so far negative. DIAGNOSTIC IMPRESSION AND PLAN: 1. Patient admitted to the hospital with abdominal pain. Source is PD catheter secondary to peritonitis. The patient white count has shown in the PD catheter fluid seems to have shown significant decrease. She will continue on vancomycin and Fortaz with discharge antibiotic depending upon the final cultures. 2. Left heel wound. Local wound care with Santyl. Keep the area off the pressure. MMODL / IJN: [id number] /
[2019-07-29] MEDS: DIALYSIS (PERIT 2.5%) 2,500 ML 62.5 G/2,500 ML BAG INTRAPERIT SCH ×3 (03:53→20:56)
[2019-07-29] MEDS: LEVOTHYROXINE 75 MCG TAB PO SCH (05:56)
[2019-07-29 07:15] LABS: Calcium 7.1 mg/dL (8.4-10.2); Magnesium 1.2 mg/dL (1.6-2.3); Potassium 3.5 mmol/L (3.5-5.1)
[2019-07-29] MEDS ORDERED: MAGNESIUM OXIDE 400 MG TAB PO STA (08:21)
--- NOTE | 2019-07-29 08:52 | P.PN ---
Subjective Patient is seen in follow-up for end-stage renal disease. She is maintained on peritoneal dialysis. Currently being treated for peritonitis. Cell count trending down. Abdominal pain resolved. Tolerating oral intake. Vital signs are stable. General: The patient appeared well nourished and normally developed. HEENT: Head exam is unremarkable. Neck is without jugular venous distension. LUNGS: Lungs are clear to auscultation and percussion. Breath sounds decreased. HEART: Rate and Rhythm are regular. First and second heart sounds normal. No murmurs, rubs or gallops. ABDOMEN: Generalized tenderness. EXTREMITITES: 1+ edema. BKA noted. Objective - Vital Signs Vital signs: Vital Signs Temp 97.9 F 07/29/19 04:45 Pulse 68 07/29/19 04:45 Resp 20 07/29/19 04:45 BP 109/67 07/29/19 04:45 Pulse Ox 100 07/29/19 04:45 Intake & Output 07/28/19 07/29/19 07/29/19 18:59 06:59 18:59 Intake Total 540 150 Balance 540 150 Intake: Oral 540 150 Other: Voiding Method Bedpan Bedpan Diaper Diaper Incontinent Incontinent # Voids 0 # Bowel Movements 0 - Labs CBC & Chem 7: 07/28/19 05:43 07/29/19 06:20 Labs: Abnormal Lab Results - Last 24 Hours (Table) 07/29/19 Range/Units 06:20 Sodium 132 L (137-145) mmol/L Chloride 96 L (98-107) mmol/L BUN 35 H (7-17) mg/dL Creatinine 9.67 H* (0.52-1.04) mg/dL Glucose 197 H (74-99) mg/dL Calcium 7.1 L (8.4-10.2) mg/dL Magnesium 1.2 L (1.6-2.3) mg/dL Microbiology - Last 24 Hours (Table) 07/28/19 10:38 Gram Stain - Preliminary Peritoneal Fluid Body Fluid Culture - Preliminary 07/27/19 07:00 Blood Culture - Preliminary Blood No Growth after 24 hours Assessment and Plan Plan: Assessment: 1. End-stage renal disease maintained on peritoneal dialysis. 2. CAPD associated peritonitis. Initial cell count from July 26 was 2765; 380 on July 27. 3. Chronic kidney disease mineral bone disease maintained on PhosLo and calcitriol. 4. Anemia of chronic kidney disease maintained on Aranesp. 5. Hypokalemia secondary to PD losses and hypomagnesemia maintained on supplementation. 6. Hypomagnesemia from poor oral intake. Plan: Maintain current PD changes. Intraperitoneal vancomycin given on July 26. Also started on intraperitoneal ceftazidime on July 26 which will be continued daily. Repeat dialysate cell count, culture and Gram stain today. Replace potassium. 40 mg once today. Replace magnesium. 3 g IV today. Add oral magnesium oxide.
[2019-07-29 09:02] LABS: Anisocytosis Slight; HCT 32.2 % (34.0-46.0); HGB 9.8 gm/dL (11.4-16.0); Hypochromasia Slight; MCH 29.2 pg (25.0-35.0); MCHC 30.4 g/dL (31.0-37.0); MCV 95.9 fL (80.0-100.0); Macrocytosis Slight; Mean Platelet Volume 11.2; Platelet Count 270 k/uL (150-450); RBC 3.36 m/uL (3.80-5.40); RDW 17.8 % (11.5-15.5); WBC 8.2 k/uL (3.8-10.6)
[2019-07-29] MEDS ORDERED: POTASSIUM CHLORIDE ER 20 MEQ TAB.ER PO STA (09:14)
[2019-07-29] MEDS: COLLAGENASE 250 UNIT/GM OINTMENT 30 GM TUBE TOPICAL SCH (09:15)
[2019-07-29] MEDS: HEPARIN SODIUM,PORCINE 5,000 UNIT/ML 1 ML VIAL SQ SCH ×2 (09:39→20:26)
[2019-07-29] MEDS: PREGABALIN 50 MG CAP PO SCH ×2 (09:39→20:26)
[2019-07-29] MEDS: ESCITALOPRAM 10 MG TAB PO SCH (09:39)
[2019-07-29] MEDS: PANTOPRAZOLE 40 MG TABLET PO SCH (09:39)
[2019-07-29] MEDS: POTASSIUM CHLORIDE ER 10 MEQ TAB.ER.PRT PO SCH (09:39)
[2019-07-29] MEDS: CLOPIDOGREL 75 MG TAB PO SCH (09:39)
[2019-07-29] MEDS: CALCIUM ACETATE 667 MG TAB PO SCH ×3 (09:40→17:31)
[2019-07-29] MEDS: Insulin Aspart (For Pump) 100 UNIT/ML VIAL SQ-PUMP SCH ×4 (09:51→20:27)
[2019-07-29] MEDS: MAGNESIUM SULFATE-D5W PMX 1 GM in DEXTROSE/WATER 1 100ML.BAG IVPB SCH ×3 (09:52→20:28)
--- NOTE | 2019-07-29 13:18 | P.PN ---
Subjective Progress Note Date: 07/29/19 (delayed charting seen at 0900) Principal diagnosis: abdominal pain Patient is a 63-year-old -Portuguese female past medical history of type 2 diabetes well-controlled with insulin pump in place, hypertension, end-stage renal disease on peritoneal dialysis, hypothyroidism, GERD, and a right BKA who presented to the ER via EMS secondary to lower abdominal pain. On arrival to the emergency department her vital signs within normal limits. Initial laboratory analysis was consistent with her known chronic anemia and chronic renal failure. She was slightly hyperglycemic with a blood glucose of 249. She was also noted to have a chronic left heel pressure ulcer for which she follows with Dr. Jaramillo. In the ER there is concern for spontaneous bacterial peritonitis and she was started on Rocephin. She is admitted for further monitoring. Nephrology was consulted and she was started on intraperitoneal vancomycin and ceftazidime. Her initial peritoneal fluid showed nucleated white blood cell count of 2765. By the next morning she was feeling much improved. Her intraperitoneal fluid count decreased to 380. Her magnesieum was low at 1.2 Patient seen and examined at bedside. Belly pain is much improved. Feeling much better than yesterday. Does report some wet cough which she feels is secondary to the manual peritoneal dialysis. No nausea or vomiting. No diarrhea. She is anxious about going home as she typically has her peritoneal dialysis throughout exchanger and does not do this manually. She is also worried about having to leave in the antibiotic for 6 hours. Objective - Vital Signs Vital signs: Vital Signs Temp 98.5 F 07/29/19 10:10 Pulse 65 07/29/19 10:10 Resp 16 07/29/19 10:10 BP 124/72 07/29/19 10:10 Pulse Ox 96 07/29/19 10:10 Intake & Output 07/28/19 07/29/19 07/29/19 18:59 06:59 18:59 Intake Total 540 150 220 Balance 540 150 220 Intake: Oral 540 150 220 Other: Voiding Method Bedpan Bedpan Diaper Diaper Incontinent Incontinent # Voids 0 # Bowel Movements 0 - Exam General: non toxic, no distress, appears at stated age Derm: Left heel with dressing in place, warm, dry Head: atraumatic, normocephalic, symmetric Eyes: EOMI, no lid lag, anicteric sclera Mouth: no lip lesion, mucus membranes moist Cardiovascular: S1S2 reg, no murmur, positive posterior tibial pulse left, Lungs: decrease bs bilateral, no rhonchi, no rales , no accessory muscle use Abdominal: soft, +tender to palpation RLQ, no guarding, no appreciable organomegaly Ext: no gross muscle atrophy, no edema, no contractures Neuro: CN II-XI grossly intact, no focal neuro deficits Psych: Alert, oriented, appropriate affect - Labs CBC & Chem 7: 07/29/19 06:20 07/29/19 06:20 Labs: Abnormal Lab Results - Last 24 Hours (Table) 07/29/19 07/29/19 Range/Units 06:20 06:20 RBC 3.36 L (3.80-5.40) m/uL Hgb 9.8 L (11.4-16.0) gm/dL Hct 32.2 L (34.0-46.0) % MCHC 30.4 L (31.0-37.0) g/dL RDW 17.8 H (11.5-15.5) % Sodium 132 L (137-145) mmol/L Chloride 96 L (98-107) mmol/L BUN 35 H (7-17) mg/dL Creatinine 9.67 H* (0.52-1.04) mg/dL Glucose 197 H (74-99) mg/dL Calcium 7.1 L (8.4-10.2) mg/dL Magnesium 1.2 L (1.6-2.3) mg/dL Microbiology - Last 24 Hours (Table) 07/28/19 10:38 Gram Stain - Preliminary Peritoneal Fluid Body Fluid Culture - Preliminary 07/27/19 07:00 Blood Culture - Preliminary Blood No Growth after 48 hours Assessment and Plan Assessment: Secondary bacterial peritonitis associated with peritoneal dialysis -Nephrology recommendations appreciated -Patient received vancomycin intraperitoneal peritoneal which will be effective for 5 days, continue with ceftazidime -Await for repeat nucleated cells from peritoneal fluid -Plan is for outpatient intraperitoneal antibiotics -ID recommendations appreciated -Continue with PhosLo Diabetes mellitus type 2 insulin requiring with pump and associated peripheral neuropathy -Continue with insulin pump, follow blood sugars -Check hemoglobin A1c last known is October 2018 with an A1c of 7.1 -Consult cosmetology educator -Continue with long-acting insulin at 26 units - lyrical Left heel wound -Offload -Continue with Santyl -Continue with dressing Hypertension - controlled - follow BP GERD - PPI Hypothyroidism -Synthroid DVT prophylaxis: Heparin Discussed with: Patient, nursing, Dr. Chu Anticipated discharge: 2-[address]: home A total of 35 minutes was spent on the care of this complex patient more than 50% of the time was spent in counseling and care coordination.
[2019-07-29] MEDS: DIALYSIS DEX INTRAPERIT SCH (15:40)
[2019-07-29] MEDS: CEFTAZIDIME INTRAPERIT SCH (15:40)
[2019-07-29] MEDS: LACTULOSE 20 GM/30 ML CUP PO PRN (17:31)
[2019-07-29 18:24] LABS: Appearance,BF Clear; Color,BF Colorless; Nucleated Cells, Body Fluid 21 /uL; RBC, Body Fluid 4 /uL
[2019-07-29 19:35] LABS: Mononuclear WBC,Body Fluid 20 %; Polynuclear WBC,Body Fluid 70 %
[2019-07-29 20:25] LABS: Glucose,Whole Blood 216 mg/dL (75-99)
--- NOTE | 2019-07-29 20:31 | PN ---
PROGRESS NOTE DATE OF SERVICE: 07/29/2019 REASON FOR FOLLOWUP: 1. PD catheter-associated peritonitis. 2. Left heel wound. INTERVAL HISTORY: The patient is currently afebrile. The patient is breathing comfortably. The patient denies having any chest pain or shortness of breath or cough. Abdominal pain has improved. No nausea, vomiting. Denies pain to the left heel area. PHYSICAL EXAMINATION: Blood pressure 110/68 with a pulse of 72, temperature 99.3. She is 96% on room air. General description is an elderly female lying in bed in no distress. RESPIRATORY SYSTEM: Unlabored breathing. Clear to auscultation anteriorly. HEART: S1, S2. Regular rate and rhythm. ABDOMEN: Soft. No tenderness. Left heel did have significant amount of slough tissue. No surrounding redness. LABS: Hemoglobin 9.3, white count 8.2, BUN of 35, creatinine is 9.67. Dialysate culture with coagulase-negative Staph. DIAGNOSTIC IMPRESSION AND PLAN: 1. Patient admitted to hospital with a peritoneal dialysis catheter-associated peritonitis. Culture has been coagulase-negative Staph. Plan is to continue with vancomycin the peritoneal dialysis fluid. Fortaz can be discontinued. Duration of antibiotic should be at least 2 weeks. Monitor clinical course closely. 2. Left heel wound with no cellulitis. Local care to continue with Santyl followed by moist dressing. The patient has been requested to be evaluated by Dr. Jaramillo, who has been consulted for surgical debridement before discharge. MMODL / IJN: [id number] /
[2019-07-29] MEDS: MORPHINE SULFATE 4 MG/ML SYRINGE IV PRN (23:25)
[2019-07-30] MEDS: DIALYSIS (PERIT 2.5%) 2,500 ML 62.5 G/2,500 ML BAG INTRAPERIT SCH ×2 (02:54→09:50)
[2019-07-30] MEDS: LEVOTHYROXINE 75 MCG TAB PO SCH (05:05)
[2019-07-30 05:19] LABS: Glucose,Whole Blood 256 mg/dL (75-99)
[2019-07-30] MEDS: MORPHINE SULFATE 4 MG/ML SYRINGE IV PRN (05:33)
[2019-07-30] MEDS ORDERED: LIDOCAINE 1% INJ 10MG/ML (20 ML MDV) SQ ONE (07:00)
[2019-07-30 07:41] LABS: Anisocytosis Slight; HCT 31.2 % (34.0-46.0); HGB 9.4 gm/dL (11.4-16.0); Hypochromasia Moderate; MCH 29.2 pg (25.0-35.0); MCV 97.1 fL (80.0-100.0); Macrocytosis Slight; Mean Platelet Volume 10.3; Platelet Count 281 k/uL (150-450); RBC 3.21 m/uL (3.80-5.40); RDW 17.6 % (11.5-15.5); WBC 6.4 k/uL (3.8-10.6)
[2019-07-30 08:00] LABS: Calcium 7.4 mg/dL (8.4-10.2); Magnesium 1.8 mg/dL (1.6-2.3); Potassium 3.4 mmol/L (3.5-5.1)
[2019-07-30] MEDS: CLOPIDOGREL 75 MG TAB PO SCH (08:35)
[2019-07-30] MEDS: POTASSIUM CHLORIDE ER 10 MEQ TAB.ER.PRT PO SCH (08:35)
[2019-07-30] MEDS: PREGABALIN 50 MG CAP PO SCH (08:35)
[2019-07-30] MEDS: CALCIUM ACETATE 667 MG TAB PO SCH ×3 (08:35→12:05)
[2019-07-30] MEDS: PANTOPRAZOLE 40 MG TABLET PO SCH (08:35)
[2019-07-30] MEDS: ESCITALOPRAM 10 MG TAB PO SCH (08:35)
[2019-07-30] MEDS: COLLAGENASE 250 UNIT/GM OINTMENT 30 GM TUBE TOPICAL SCH (08:36)
[2019-07-30] MEDS: HEPARIN SODIUM,PORCINE 5,000 UNIT/ML 1 ML VIAL SQ SCH (08:36)
[2019-07-30] MEDS: LACTULOSE 20 GM/30 ML CUP PO PRN (08:36)
[2019-07-30] MEDS ORDERED: POTASSIUM CHLORIDE ER 20 MEQ TAB.ER PO STA (08:46)
--- NOTE | 2019-07-30 08:47 | P.PN ---
Subjective Patient is seen in follow-up for end-stage renal disease. She is maintained on peritoneal dialysis. Currently being treated for peritonitis. Cell count trending down. Abdominal pain resolved. Tolerating oral intake. No active complaints. Vital signs are stable. General: The patient appeared well nourished and normally developed. HEENT: Head exam is unremarkable. Neck is without jugular venous distension. LUNGS: Lungs are clear to auscultation and percussion. Breath sounds decreased. HEART: Rate and Rhythm are regular. ABDOMEN: Nontender. EXTREMITITES: 1+ edema. BKA noted. Objective - Vital Signs Vital signs: Vital Signs Temp 97.8 F 07/30/19 05:06 Pulse 65 07/30/19 05:06 Resp 12 07/30/19 05:06 BP 99/65 07/30/19 05:06 Pulse Ox 100 07/30/19 05:06 Intake & Output 07/29/19 07/30/19 07/30/19 18:59 06:59 18:59 Intake Total 460 Balance 460 Intake: Oral 460 Other: Voiding Method Bedpan Bedpan Diaper Diaper Incontinent Incontinent # Voids 0 0 - Labs CBC & Chem 7: 07/30/19 06:49 07/30/19 06:49 Labs: Abnormal Lab Results - Last 24 Hours (Table) 07/29/19 07/29/19 07/30/19 Range/Units 06:20 20:23 05:17 RBC 3.36 L (3.80-5.40) m/uL Hgb 9.8 L (11.4-16.0) gm/dL Hct 32.2 L (34.0-46.0) % MCHC 30.4 L (31.0-37.0) g/dL RDW 17.8 H (11.5-15.5) % Sodium (137-145) mmol/L Potassium (3.5-5.1) mmol/L Chloride (98-107) mmol/L BUN (7-17) mg/dL Creatinine (0.52-1.04) mg/dL Glucose (74-99) mg/dL POC Glucose (mg/dL) 216 H 256 H (75-99) mg/dL Calcium (8.4-10.2) mg/dL 07/30/19 07/30/19 Range/Units 06:49 06:49 RBC 3.21 L (3.80-5.40) m/uL Hgb 9.4 L (11.4-16.0) gm/dL Hct 31.2 L (34.0-46.0) % MCHC 30.0 L (31.0-37.0) g/dL RDW 17.6 H (11.5-15.5) % Sodium 134 L (137-145) mmol/L Potassium 3.4 L (3.5-5.1) mmol/L Chloride 95 L (98-107) mmol/L BUN 31 H (7-17) mg/dL Creatinine 9.84 H* (0.52-1.04) mg/dL Glucose 203 H (74-99) mg/dL POC Glucose (mg/dL) (75-99) mg/dL Calcium 7.4 L (8.4-10.2) mg/dL Microbiology - Last 24 Hours (Table) 07/29/19 12:10 Gram Stain - Preliminary Dialysate Body Fluid Culture - Preliminary 07/27/19 08:16 Gram Stain - Preliminary Dialysate Body Fluid Culture - Preliminary Coagulase Negative Staph 07/28/19 10:38 Gram Stain - Preliminary Peritoneal Fluid Body Fluid Culture - Preliminary 07/27/19 07:00 Blood Culture - Preliminary Blood No Growth after 48 hours Assessment and Plan Plan: Assessment: 1. End-stage renal disease maintained on peritoneal dialysis. 2. CAPD associated peritonitis. Initial cell count from July 26 was 2765; 380 on July 27; 21 on July 28. Fluid culture positive for coag-negative staph. 3. Chronic kidney disease mineral bone disease maintained on PhosLo and calcitriol. 4. Anemia of chronic kidney disease maintained on Aranesp. 5. Hypokalemia secondary to PD losses and hypomagnesemia maintained on supplementation. 6. Hypomagnesemia from poor oral intake. Improved post replacement. Plan: Maintain current PD changes. Intraperitoneal vancomycin given on July 26. Also started on intraperitoneal ceftazidime on July 26 which will be continued daily - will discuss with infectious disease if this can be discontinued. Replace potassium. 40 mg once today. Continue oral magnesium oxide.
[2019-07-30] MEDS: Insulin Aspart (For Pump) 100 UNIT/ML VIAL SQ-PUMP SCH ×2 (09:00→12:05)
[2019-07-30] MEDS ORDERED: MAGNESIUM OXIDE 400 MG TAB PO SCH (09:00)
[2019-07-30 10:06] VITALS: BP 129/78; PULSE 71; RESP 20; TEMP 97.1
--- NOTE | 2019-07-30 10:12 | CONS ---
CONSULTATION This is a 63-year-old female. Patient is known to me from the past. Patient has a pressure ulcer left heel. Patient had debridement done in the past. The patient came with peritonitis due to the peritoneal dialysis catheter. I was consulted for local wound care and debridement of the left heel. 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 Medical history also diabetes, chronic renal failure, peripheral vascular disease and chronic wound left heel. PHYSICAL EXAMINATION: On examination, patient was seen in her room. NECK: Supple. Trachea central. CHEST: Clear. ABDOMEN: Soft. Femorals are are 1+. Left heel has a wound 4 x 6 cm with some devitalized tissue. PLAN: Debridement of the wound. Risks and complications discussed. MMODL / IJN: [id number] /
--- NOTE | 2019-07-30 10:28 | OP ---
OPERATIVE REPORT PREOPERATIVE DIAGNOSIS: Chronic wound, left heel. Measurement is 4 x 6 cm. POSTOPERATIVE DIAGNOSIS: Chronic wound, left heel. Measurement is 4 x 6 cm. PROCEDURE: Debridement of the wound down to subcutaneous tissue and the fascia. DESCRIPTION OF PROCEDURE: The left foot was prepped and drapes applied in a sterile manner. Lidocaine 1% was infiltrated in the wound area. Using sharp knife, we did the debridement down to subcutaneous tissue and all the devitalized tissue was removed. The patient had some small bleeding, which was controlled by pressure. The wound was copiously irrigated with saline. After that, we placed Medihoney gel. Pressure dressing applied. The patient is going home today. We will followup in the Wound Clinic at [facility]. Continue with antibiotic as per Dr. Posey. MMODL / IJN: [id number] /
--- NOTE | 2019-07-30 13:10 | P.DS ---
Providers Date of admission: 07/29/19 10:47 Expected date of discharge: 07/30/19 Attending physician: Jeffrey Desai MD Consults: 07/27/19 08:21 Consult Physician Urgent Consulting Provider: Semaj Chu Consult Reason/Comments: Peritoneal dialysis Do you want consulting provider notified?: Yes 07/27/19 09:05 Consult Physician Routine Consulting Provider: Jean-Pierre Posey Consult Reason/Comments: rule out SBP/Abx guidance Do you want consulting provider notified?: Yes 07/29/19 13:49 Consult Physician Routine Consulting Provider: Jc Jaramillo Consult Reason/Comments: Left heel debridement Do you want consulting provider notified?: Yes Primary care physician: Keyur Pettit Hospital Course: Discharge Diagnosis: Secondary bacterial peritonitis associated with peritoneal dialysis 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 On arrival to the emergency department her vital signs within normal limits. Initial la boratory analysis was consistent with her known chronic anemia and chronic renal failure. She was slightly hyperglycemic with a blood glucose of 249. She was also noted to have a chronic left heel pressure ulcer for which she follows with Dr. Jaramillo. In the ER there is concern for spontaneous bacterial peritonitis and she was started on Rocephin. She is admitted for further monitoring. Nephr ology was consulted and she was started on intraperitoneal vancomycin and ceftazidime. Her initial peritoneal fluid showed nucleated white blood cell count of 2765. By the next morning she was feeling much improved. Her intraperitoneal fluid count decreased to 380. Her magnesieum was low at 1.2 . This was replaced. Her left heel was divided by Dr. Jaramillo. Her peritoneal fluid came back with coag-negative staph. Her antibiotics were de-escalating to vancomycin only every 5 days with peritoneal dialysis. She was determined stable for discharge home. She will follow up with her primary care physician Dr. Pettit, Dr. Chu, and Dr. Jaramillo. Patient seen and examined at bedside.No chest pain, no shortness of breath, abdominal pain is getting better, + Constipation Vital signs reviewed and stable. General: non toxic, no distress, appears at stated age Derm: warm, dry Head: atraumatic, normocephalic, symmetric Eyes: EOMI, no lid lag, anicteric sclera Mouth: no lip lesion, mucus membranes moist Cardiovascular: S1S2 reg, no murmur, positive posterior tibial pulse bilateral, Lungs: CTA bilateral, no rhonchi, no rales , no accessory muscle use Abdominal: soft, nontender to palpation, no guarding, no appreciable organomegaly Ext: no gross muscle atrophy, no edema, no contractures Neuro: CN II-XI grossly intact, no focal neuro deficits Psych: Alert, oriented, appropriate affect A total of 35 minutes of time were spent preparing this complex discharge summary . Patient Condition at Discharge: Stable Plan - Discharge Summary Discharge Rx Participant: No New Discharge Prescriptions: Continue Pantoprazole [Protonix] 40 mg PO DAILY Levothyroxine Sodium [Synthroid] 75 mcg PO DAILY Clopidogrel [Plavix] 75 mg PO DAILY Meclizine [Antivert] 25 mg PO TID PRN PRN Reason: Vertigo Furosemide [Lasix] 80 mg PO BID Metoprolol Tartrate [Lopressor] 25 mg PO BID #0 tab Potassium Chloride ER [K-Dur 10] 10 meq PO DAILY tab.er.prt Calcium Acetate [PhosLo] 667 mg PO TID-W/MEALS cap Acetaminophen Tab [Tylenol] 650 mg PO Q6HR PRN tab PRN Reason: Fever And/ Or Pain Midodrine HCl [ProAmatine] 10 mg PO MOWEFR Collagenase [Santyl] 1 applic TOPICAL DAILY Escitalopram [Lexapro] 10 mg PO DAILY Pregabalin [Lyrica] 50 mg PO BID Epoetin Edgardo [Procrit] 40,000 unit SQ MOWEFR Torsemide [Demadex] 100 mg PO DAILY Calcitriol [Rocaltrol] 0.25 mcg PO Q7D Discontinued Rosio-Thomas 1 tab PO DAILY Insulin Glargine [Lantus] 26 unit SQ HS Discharge Medication List Levothyroxine Sodium [Synthroid] 75 mcg PO DAILY 10/09/16 [History] Pantoprazole [Protonix] 40 mg PO DAILY 10/09/16 [History] Clopidogrel [Plavix] 75 mg PO DAILY 03/11/17 [History] Meclizine [Antivert] 25 mg PO TID PRN 04/26/17 [History] Furosemide [Lasix] 80 mg PO BID 04/23/18 [History] Metoprolol Tartrate [Lopressor] 25 mg PO BID #0 tab 11/15/18 [Rx] Acetaminophen Tab [Tylenol] 650 mg PO Q6HR PRN tab 02/27/19 [Rx] Calcium Acetate [PhosLo] 667 mg PO TID-W/MEALS cap 02/27/19 [Rx] Potassium Chloride ER [K-Dur 10] 10 meq PO DAILY tab.er.prt 02/27/19 [Rx] Calcitriol [Rocaltrol] 0.25 mcg PO Q7D 07/27/19 [History] Collagenase [Santyl] 1 applic TOPICAL DAILY 07/27/19 [History] Epoetin Edgardo [Procrit] 40,000 unit SQ MOWEFR 07/27/19 [History] Escitalopram [Lexapro] 10 mg PO DAILY 07/27/19 [History] Midodrine HCl [ProAmatine] 10 mg PO MOWEFR 07/27/19 [History] Pregabalin [Lyrica] 50 mg PO BID 07/27/19 [History] Torsemide [Demadex] 100 mg PO DAILY 07/27/19 [History] Follow up Appointment(s)/Referral(s): [facility], [NON-STAFF] - 1 Week Jc Jaramillo MD [STAFF PHYSICIAN] - 1 Week Keyur Pettit [Primary Care Provider] - 1-2 days Semaj Chu DO [STAFF PHYSICIAN] - 1 Week Patient Instructions/Handouts: How to Prevent Pressure Injuries (DC), Peritonitis (DC) Activity/Diet/Wound Care/Special Instructions: Diabetic, renal diet Change positions every 2 hours, elevate heels at rest. Up with assist, fall precautions. Continue to see wound care at Dr Lee office. Discharge Disposition: HOME SELF-CARE
--- NOTE | 2019-07-30 14:55 | PN ---
PROGRESS NOTE DATE OF SERVICE: 07/30/2019 REASON FOR FOLLOWUP: 1. PD catheter-associated peritonitis. 2. Left heel wound. INTERVAL HISTORY: The patient is currently afebrile. The patient is breathing comfortably. The patient's abdominal pain has improved. No nausea. No vomiting. No chest pain. No shortness of breath or cough. No diarrhea. The patient is complaining of constipation. No pain to the left heel area. PHYSICAL EXAMINATION: Blood pressure 129/78 with a pulse of 71, temperature 97.1. She is 100% on 2 liters nasal cannula. General description is an elderly female lying in bed in no distress. RESPIRATORY SYSTEM: Unlabored breathing. Clear to auscultation anteriorly. HEART: S1, S2. Regular rate and rhythm. ABDOMEN: Soft. No tenderness. Left heel is currently dressed up. LABS: White count is 6.4, the white count in the peritoneal fluid has gone to 21. DIAGNOSTIC IMPRESSION AND PLAN: 1. Patient with peritoneal dialysis catheter-associated peritonitis. Culture with coagulase-negative Staphylococcus. She will continue vancomycin through the peritoneal dialysis for a total of 2 weeks and close outpatient followup. No need for Fortaz on discharge. 2. Left heel wound. Local wound care to continue with Medihoney followed by moist dressing. To followup with Dr. Jaramillo in the Wound [facility] at [facility]. MMODL / LAKEN: [id number] /
[2019-07-30] MEDS: DIALYSIS DEX INTRAPERIT SCH (14:57)
[2019-07-30] MEDS: CEFTAZIDIME INTRAPERIT SCH (14:57)
== END 2019-07-30 15:05 | disposition home or self-care (01) | DRG 856 ==
LOC: EC 06:43 → INTOOBSV 08:30 → 6NMEDSUR 08:30 → OBSVTOIN 07-29 10:47
PROVIDERS: ADMIT Family Medicine; ATTEND Family Medicine
PROC: 0JBR0ZZ Excision of Left Foot Subcutaneous Tissue and Fascia, Open Approach (ICD-10-PCS; principal; 2019-07-30)
DX: T80.29XA Infection following other infusion, transfusion and therapeutic injection, initial encounter (principal); N18.6 End stage renal disease; K65.2 Spontaneous bacterial peritonitis; I12.0 Hypertensive chronic kidney disease with stage 5 chronic kidney disease or end stage renal disease; D63.1 Anemia in chronic kidney disease; E03.9 Hypothyroidism, unspecified; E11.22 Type 2 diabetes mellitus with diabetic chronic kidney disease; E11.319 Type 2 diabetes mellitus with unspecified diabetic retinopathy without macular edema; E11.42 Type 2 diabetes mellitus with diabetic polyneuropathy; E11.51 Type 2 diabetes mellitus with diabetic peripheral angiopathy without gangrene; E11.621 Type 2 diabetes mellitus with foot ulcer; E78.5 Hyperlipidemia, unspecified; E83.42 Hypomagnesemia; E83.51 Hypocalcemia; E87.6 Hypokalemia; E88.89 Other specified metabolic disorders; F32.9 Major depressive disorder, single episode, unspecified; F41.9 Anxiety disorder, unspecified; K21.9 Gastro-esophageal reflux disease without esophagitis; E11.65 Type 2 diabetes mellitus with hyperglycemia; K59.00 Constipation, unspecified; B95.7 Other staphylococcus as the cause of diseases classified elsewhere; L89.629 Pressure ulcer of left heel, unspecified stage; M89.8X9 Other specified disorders of bone, unspecified site; Y84.1 Kidney dialysis as the cause of abnormal reaction of the patient, or of later complication, without mention of misadventure at the time of the procedure; Z79.01 Long term (current) use of anticoagulants; Z79.02 Long term (current) use of antithrombotics/antiplatelets; Z79.4 Long term (current) use of insulin; Z79.890 Hormone replacement therapy; Z79.899 Other long term (current) drug therapy; Z80.0 Family history of malignant neoplasm of digestive organs; Z82.49 Family history of ischemic heart disease and other diseases of the circulatory system; Z83.3 Family history of diabetes mellitus; Z87.891 Personal history of nicotine dependence; Z89.511 Acquired absence of right leg below knee; Z90.710 Acquired absence of both cervix and uterus; Z96.41 Presence of insulin pump (external) (internal); Z99.2 Dependence on renal dialysis; Z86.14 Personal history of Methicillin resistant Staphylococcus aureus infection; Z87.440 Personal history of urinary (tract) infections
CPT/HCPCS: 36415; 74176; 80048; 80053; 82150; 82945; 83605; 83615; 83690; 83735; 84157; 85025; 85027; 87040; 87070; 87077; 87186; 87205; 89050; 96361; 96374; 96375; 99285

== ENCOUNTER 2019-07-31 14:15 | Inpatient (IN) | payer MEDICARE ==
[2019-07-31] MEDS ORDERED: BACITRACIN 500 UNIT/GM OINT 28.4 GM TUBE TOPICAL ONE (14:41)
--- NOTE | 2019-07-31 15:25 | ED ---
General Adult HPI - General Source: patient, EMS, RN notes reviewed, old records reviewed Mode of arrival: EMS Limitations: no limitations <Iain Kang - Last Filed: 07/31/19 17:59> <Ana Jordan - Last Filed: 08/03/19 16:01> - General Chief complaint: Burn/Smoke Inhalation Stated complaint: Burn Time Seen by Provider: 07/31/19 14:19 - History of Present Illness Initial comments: 63-year-old female patient with past medical history significant for end-stage renal disease on hemodialysis presents to ED for burn. Patient states that she felt about heating pad nausea burning in her back. Upon evaluation patient is altered saying she is having difficulty hearing. Denies any other acute complaints. Systemic: Pt denies fatigue, fever/chills, rash. Pt denies weakness, night sweats, weight loss. Neuro: Pt denies headache, visual disturbances, syncope or pre-syncope. HEENT: Pt denies ocular discharge or irritation, otalgia, rhinorrhea, pharyngitis or notable lymphadenopathy. Cardiopulmonary: Pt denies chest pain, SOB, heart palpitations, dyspnea on exertion. Abdominal/GI: Pt denies abdominal pain, n/v/d. : Pt denies dysuria, burning w/ urination, frequency/urgency. Denies new onset urinary or bowel incontinence. MSK: Pt denies myalgia, loss of strength or function in extremities. Neuro: Pt denies new onset weakness, paresthesias. (Iain Kang) - Related Data Home Medications Medication Instructions Recorded Confirmed Levothyroxine Sodium [Synthroid] 75 mcg PO DAILY 10/09/16 07/31/19 Pantoprazole [Protonix] 40 mg PO DAILY 10/09/16 07/31/19 Clopidogrel [Plavix] 75 mg PO DAILY 03/11/17 07/31/19 Meclizine [Antivert] 25 mg PO TID PRN 04/26/17 07/31/19 Furosemide [Lasix] 80 mg PO BID 04/23/18 07/31/19 Calcitriol [Rocaltrol] 0.25 mcg PO Q7D 07/27/19 07/31/19 Collagenase [Santyl] 1 applic TOPICAL DAILY 07/27/19 07/31/19 Epoetin Edgardo [Procrit] 4,000 unit SQ MOWEFR 07/27/19 07/31/19 Escitalopram [Lexapro] 10 mg PO DAILY 07/27/19 07/31/19 Midodrine HCl [ProAmatine] 10 mg PO MOWEFR 07/27/19 07/31/19 Pregabalin [Lyrica] 50 mg PO BID 07/27/19 07/31/19 Torsemide [Demadex] 100 mg PO DAILY 07/27/19 07/31/19 Previous Rx's Medication Instructions Recorded Metoprolol Tartrate [Lopressor] 25 mg PO BID #0 tab 11/15/18 Acetaminophen Tab [Tylenol] 650 mg PO Q6HR PRN tab 02/27/19 Calcium Acetate [PhosLo] 667 mg PO TID-W/MEALS cap 02/27/19 Potassium Chloride ER [K-Dur 10] 10 meq PO DAILY tab.er.prt 02/27/19 Allergies Allergy/AdvReac Type Severity Reaction Status Date / Time gabapentin Allergy Rash/Hives Verified 07/31/19 14:22 lisinopril AdvReac Cough Verified 07/31/19 14:22 Review of Systems ROS Other: All systems not noted in ROS Statement are negative. <Iain Kang - Last Filed: 07/31/19 17:59> ROS Other: All systems not noted in ROS Statement are negative. <Ana Jordan - Last Filed: 08/03/19 16:01> ROS Statement: Those systems with pertinent positive or pertinent negative responses have been documented in the HPI. Past Medical History Past Medical History: Diabetes Mellitus, Dialysis, GERD/Reflux, Hyperlipidemia, Hypertension, Memory Impairment, Renal Disease, Thyroid Disorder Additional Past Medical History / Comment(s): peritoneal dialysis daily over night. hx stil syndrome left hand-please use rt arm/hand for iv, blood draws. 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 neck cervical 4,5,6 fused. graft tie off 04/05/2017, eye laser surgery for diabetic retinopathy Past Anesthesia/Blood Transfusion Reactions: No Reported Reaction Past Psychological History: Anxiety, Depression Smoking Status: Never smoker Past Alcohol Use History: None Reported Past Drug Use History: None Reported - Past Family History Mother Family Medical History: Diabetes Mellitus, Hypertension Additional Family Medical History / Comment(s): colon ca Father Family Medical History: Myocardial Infarction ([place]) <Iain Kang - Last Filed: 07/31/19 17:59> General Exam Limitations: no limitations <Iain Kang - Last Filed: 07/31/19 17:59> - General Exam Comments Initial Comments: Constitutional: NAD, alert and oriented 3 when prompted. Pt has pleasant affect. HEENT: NC/AT, trachea midline, neck supple, no lymphadenopathy. Posterior pharynx non erythematous, without exudates. External ears appear normal, without discharge. Mucous membranes moist. Eyes PERRLA, EOM intact. There is no scleral icterus. No pallor noted. Cardiopulmonary: RRR, no murmurs, rubs or gallops, no JVD noted. Lungs CTAB in anterior and posterior coates. No peripheral edema. Abdominal exam: Abdomen soft and non-distended. Abdomen non-tender to palpation in all 4 quadrants. Bowel sounds active in LLQ. No hepatosplenomegaly. No ecchymosis Neuro: CN II-XII intact. No nuchal rigidity. No raccon eyes, no colin sign, no hemotympanum. No cervical spinal tenderness. NIH 0. MSK: No posterior calf tenderness bilaterally, homans sign negative bilaterally. Posterior tibialis and radial pulse +2 bilaterally. Sensation intact in upper and lower extremities. Full active ROM in upper and lower extremities, 5/5 stregnth. Derm: 2 separate 2 x 2 centimeter second degree alvarez noted on posterior aspect of back. Cleaned, dressed with bacitracin. (Iain Kang) Course Vital Signs 07/31/19 07/31/19 07/31/19 14:19 16:00 17:00 Temperature 98.5 F 98.5 F 98.5 F Pulse Rate 72 76 70 Respiratory 18 18 18 Rate Blood Pressure 104/90 110/86 108/88 O2 Sat by Pulse 96 98 99 Oximetry 07/31/19 07/31/19 18:00 19:00 Temperature 98.2 F 98.2 F Pulse Rate 77 74 Respiratory 18 18 Rate Blood Pressure 124/89 110/74 O2 Sat by Pulse 96 97 Oximetry Medical Decision Making - Lab Data Result diagrams: 07/31/19 15:25 07/31/19 15:25 - EKG Data -: EKG Interpreted by Me (and Dr. Jordan) <Iain Kang - Last Filed: 07/31/19 17:59> - Lab Data Result diagrams: 08/03/19 03:49 08/03/19 03:49 <NikkiAna Mayra - Last Filed: 08/03/19 16:01> - Medical Decision Making 63-year-old female patient with past medical history significant for end-stage renal disease on hemodialysis presents to ED for burn. Patient states that she felt about heating pad nausea burning in her back. Upon evaluation patient is altered saying she is having difficulty hearing. Denies any other acute complaints. Patient will tender stable, afebrile. Physical exam vitals acute pathology. Patient alert and oriented 3 when prompted. 2 small second degree alvarez noted on back. Laboratory investigations are significant for increased creatinine, increased troponin. EKG is nonischemic. Patient administered aspirin. CT brain without contrast displayed stable. Arthritic changes in the right parietal occipital region. Chest x-ray display cardiomegaly with borderline prominent vascular markings quite febrile overload. Mild streak atelectasis of the left lung base. Patient was discharged from hospital yesterday for spontaneous bacterial peritonitis. Patient will be admitted for further evaluation. Troponins will be trended. Pt mental status much improved at time of admission, Case discussed with Dr. Jordan. (Iain Kang) I was available for consultation in the emergency department. The history and physical exam were done by the midlevel provider. I was consulted for this patients care. I reviewed the case with the midlevel provider and based on their presentation of the patient, I agree with the assessment, medical decision making and plan of care as documented. I evaluated the patient myself. She presents with bilateral hearing loss and confusion. I discussed the case with Dr. Sanchez who presented to the ED to evaluate the patient. She accepted admission. Chart was dictated using [employer] dictation software. Attempts were made to correct any dictation errors however some typographical errors may persist. Patient was seen during the Covid-19 pandemic. (Ana Jordan) - Lab Data Lab Results 07/31/19 07/31/19 07/31/19 Range/Units 15:25 15:25 15:25 WBC 9.8 (3.8-10.6) k/uL RBC 3.33 L (3.80-5.40) m/uL Hgb 9.8 L (11.4-16.0) gm/dL Hct 32.7 L (34.0-46.0) % MCV 98.1 (80.0-100.0) fL MCH 29.6 (25.0-35.0) pg MCHC 30.1 L (31.0-37.0) g/dL RDW 17.4 H (11.5-15.5) % Plt Count 339 (150-450) k/uL Neutrophils % 85 % Lymphocytes % 8 % Monocytes % 3 % Eosinophils % 1 % Basophils % 0 % Neutrophils # 8.4 H (1.3-7.7) k/uL Lymphocytes # 0.8 L (1.0-4.8) k/uL Monocytes # 0.3 (0-1.0) k/uL Eosinophils # 0.1 (0-0.7) k/uL Basophils # 0.0 (0-0.2) k/uL Hypochromasia Marked Anisocytosis Slight Macrocytosis Slight PT 10.4 (9.0-12.0) sec INR 1.0 (<1.2) APTT 25.7 (22.0-30.0) sec Sample Site ABG pH (7.35-7.45) ABG pCO2 (35-45) mmHg ABG pO2 (83-108) mmHg ABG HCO3 (21-25) mmol/L ABG Total CO2 (19-24) mmol/L ABG O2 Saturation (94-97) % ABG Base Excess mmol/L Wu Test FiO2 % Sodium 134 L (137-145) mmol/L Potassium 4.8 (3.5-5.1) mmol/L Chloride 97 L (98-107) mmol/L Carbon Dioxide 27 (22-30) mmol/L Anion Gap 10 mmol/L BUN 39 H (7-17) mg/dL Creatinine 11.53 H* (0.52-1.04) mg/dL Est GFR (CKD-EPI)AfAm 4 (>60 ml/min/1.73 sqM) Est GFR (CKD-EPI)NonAf 3 (>60 ml/min/1.73 sqM) Glucose 165 H (74-99) mg/dL POC Glucose (mg/dL) (75-99) mg/dL POC Glu Zigzag Tunnel Elastic Operator ID Calcium 8.0 L (8.4-10.2) mg/dL Phosphorus 4.9 H (2.5-4.5) mg/dL Magnesium 2.1 (1.6-2.3) mg/dL Total Bilirubin 0.3 (0.2-1.3) mg/dL AST 30 (14-36) U/L ALT 14 (4-34) U/L Alkaline Phosphatase 80 (38-126) U/L Ammonia (<30) umol/L Troponin I (0.000-0.034) ng/mL Total Protein 6.2 L (6.3-8.2) g/dL Albumin 2.8 L (3.5-5.0) g/dL Fluid Source Fluid Color Fluid Appearance Fluid RBC /uL Fluid Nucleated Cells /uL 07/31/19 07/31/19 07/31/19 Range/Units 15:25 15:25 20:46 WBC (3.8-10.6) k/uL RBC (3.80-5.40) m/uL Hgb (11.4-16.0) gm/dL Hct (34.0-46.0) % MCV (80.0-100.0) fL MCH (25.0-35.0) pg MCHC (31.0-37.0) g/dL RDW (11.5-15.5) % Plt Count (150-450) k/uL Neutrophils % % Lymphocytes % % Monocytes % % Eosinophils % % Basophils % % Neutrophils # (1.3-7.7) k/uL Lymphocytes # (1.0-4.8) k/uL Monocytes # (0-1.0) k/uL Eosinophils # (0-0.7) k/uL Basophils # (0-0.2) k/uL Hypochromasia Anisocytosis Macrocytosis PT (9.0-12.0) sec INR (<1.2) APTT (22.0-30.0) sec Sample Site ABG pH (7.35-7.45) ABG pCO2 (35-45) mmHg ABG pO2 (83-108) mmHg ABG HCO3 (21-25) mmol/L ABG Total CO2 (19-24) mmol/L ABG O2 Saturation (94-97) % ABG Base Excess mmol/L Wu Test FiO2 % Sodium (137-145) mmol/L Potassium (3.5-5.1) mmol/L Chloride (98-107) mmol/L Carbon Dioxide (22-30) mmol/L Anion Gap mmol/L BUN (7-17) mg/dL Creatinine (0.52-1.04) mg/dL Est GFR (CKD-EPI)AfAm (>60 ml/min/1.73 sqM) Est GFR (CKD-EPI)NonAf (>60 ml/min/1.73 sqM) Glucose (74-99) mg/dL POC Glucose (mg/dL) 125 H (75-99) mg/dL POC Glu Zigzag Tunnel Elastic Operator ID Mariola Driver Calcium (8.4-10.2) mg/dL Phosphorus (2.5-4.5) mg/dL Magnesium (1.6-2.3) mg/dL Total Bilirubin (0.2-1.3) mg/dL AST (14-36) U/L ALT (4-34) U/L Alkaline Phosphatase (38-126) U/L Ammonia <9 (<30) umol/L Troponin I 0.136 H* (0.000-0.034) ng/mL Total Protein (6.3-8.2) g/dL Albumin (3.5-5.0) g/dL Fluid Source Fluid Color Fluid Appearance Fluid RBC /uL Fluid Nucleated Cells /uL 07/31/19 07/31/19 08/01/19 Range/Units 21:54 23:21 05:37 WBC (3.8-10.6) k/uL RBC (3.80-5.40) m/uL Hgb (11.4-16.0) gm/dL Hct (34.0-46.0) % MCV (80.0-100.0) fL MCH (25.0-35.0) pg MCHC (31.0-37.0) g/dL RDW (11.5-15.5) % Plt Count (150-450) k/uL Neutrophils % % Lymphocytes % % Monocytes % % Eosinophils % % Basophils % % Neutrophils # (1.3-7.7) k/uL Lymphocytes # (1.0-4.8) k/uL Monocytes # (0-1.0) k/uL Eosinophils # (0-0.7) k/uL Basophils # (0-0.2) k/uL Hypochromasia Anisocytosis Macrocytosis PT (9.0-12.0) sec INR (<1.2) APTT (22.0-30.0) sec Sample Site ABG pH (7.35-7.45) ABG pCO2 (35-45) mmHg ABG pO2 (83-108) mmHg ABG HCO3 (21-25) mmol/L ABG Total CO2 (19-24) mmol/L ABG O2 Saturation (94-97) % ABG Base Excess mmol/L Wu Test FiO2 % Sodium (137-145) mmol/L Potassium (3.5-5.1) mmol/L Chloride (98-107) mmol/L Carbon Dioxide (22-30) mmol/L Anion Gap mmol/L BUN (7-17) mg/dL Creatinine (0.52-1.04) mg/dL Est GFR (CKD-EPI)AfAm (>60 ml/min/1.73 sqM) Est GFR (CKD-EPI)NonAf (>60 ml/min/1.73 sqM) Glucose (74-99) mg/dL POC Glucose (mg/dL) 181 H (75-99) mg/dL POC Glu Zigzag Tunnel Elastic Operator ID Mariola Driver Calcium (8.4-10.2) mg/dL Phosphorus (2.5-4.5) mg/dL Magnesium (1.6-2.3) mg/dL Total Bilirubin (0.2-1.3) mg/dL AST (14-36) U/L ALT (4-34) U/L Alkaline Phosphatase (38-126) U/L Ammonia (<30) umol/L Troponin I 0.316 H* 0.281 H* (0.000-0.034) ng/mL Total Protein (6.3-8.2) g/dL Albumin (3.5-5.0) g/dL Fluid Source Fluid Color Fluid Appearance Fluid RBC /uL Fluid Nucleated Cells /uL 08/01/19 08/01/19 08/01/19 Range/Units 05:37 05:37 06:39 WBC 6.4 (3.8-10.6) k/uL RBC 3.13 L (3.80-5.40) m/uL Hgb 9.2 L (11.4-16.0) gm/dL Hct 30.9 L (34.0-46.0) % MCV 98.9 (80.0-100.0) fL MCH 29.4 (25.0-35.0) pg MCHC 29.7 L (31.0-37.0) g/dL RDW 17.9 H (11.5-15.5) % Plt Count 265 (150-450) k/uL Neutrophils % 73 % Lymphocytes % 12 % Monocytes % 7 % Eosinophils % 4 % Basophils % 1 % Neutrophils # 4.6 (1.3-7.7) k/uL Lymphocytes # 0.8 L (1.0-4.8) k/uL Monocytes # 0.5 (0-1.0) k/uL Eosinophils # 0.3 (0-0.7) k/uL Basophils # 0.1 (0-0.2) k/uL Hypochromasia Marked Anisocytosis Slight Macrocytosis Slight PT (9.0-12.0) sec INR (<1.2) APTT (22.0-30.0) sec Sample Site ABG pH (7.35-7.45) ABG pCO2 (35-45) mmHg ABG pO2 (83-108) mmHg ABG HCO3 (21-25) mmol/L ABG Total CO2 (19-24) mmol/L ABG O2 Saturation (94-97) % ABG Base Excess mmol/L Wu Test FiO2 % Sodium 132 L (137-145) mmol/L Potassium 4.5 (3.5-5.1) mmol/L Chloride 98 (98-107) mmol/L Carbon Dioxide 24 (22-30) mmol/L Anion Gap 10 mmol/L BUN 41 H (7-17) mg/dL Creatinine 11.55 H* (0.52-1.04) mg/dL Est GFR (CKD-EPI)AfAm 4 (>60 ml/min/1.73 sqM) Est GFR (CKD-EPI)NonAf 3 (>60 ml/min/1.73 sqM) Glucose 297 H (74-99) mg/dL POC Glucose (mg/dL) 334 H (75-99) mg/dL POC Glu Zigzag Tunnel Elastic Operator ID Mariola Driver Calcium 7.6 L (8.4-10.2) mg/dL Phosphorus (2.5-4.5) mg/dL Magnesium 1.9 (1.6-2.3) mg/dL Total Bilirubin (0.2-1.3) mg/dL AST (14-36) U/L ALT (4-34) U/L Alkaline Phosphatase (38-126) U/L Ammonia (<30) umol/L Troponin I (0.000-0.034) ng/mL Total Protein (6.3-8.2) g/dL Albumin (3.5-5.0) g/dL Fluid Source Fluid Color Fluid Appearance Fluid RBC /uL Fluid Nucleated Cells /uL 08/01/19 08/01/19 08/01/19 Range/Units 09:15 11:48 17:18 WBC (3.8-10.6) k/uL RBC (3.80-5.40) m/uL Hgb (11.4-16.0) gm/dL Hct (34.0-46.0) % MCV (80.0-100.0) fL MCH (25.0-35.0) pg MCHC (31.0-37.0) g/dL RDW (11.5-15.5) % Plt Count (150-450) k/uL Neutrophils % % Lymphocytes % % Monocytes % % Eosinophils % % Basophils % % Neutrophils # (1.3-7.7) k/uL Lymphocytes # (1.0-4.8) k/uL Monocytes # (0-1.0) k/uL Eosinophils # (0-0.7) k/uL Basophils # (0-0.2) k/uL Hypochromasia Anisocytosis Macrocytosis PT (9.0-12.0) sec INR (<1.2) APTT (22.0-30.0) sec Sample Site ABG pH (7.35-7.45) ABG pCO2 (35-45) mmHg ABG pO2 (83-108) mmHg ABG HCO3 (21-25) mmol/L ABG Total CO2 (19-24) mmol/L ABG O2 Saturation (94-97) % ABG Base Excess mmol/L Wu Test FiO2 % Sodium (137-145) mmol/L Potassium (3.5-5.1) mmol/L Chloride (98-107) mmol/L Carbon Dioxide (22-30) mmol/L Anion Gap mmol/L BUN (7-17) mg/dL Creatinine (0.52-1.04) mg/dL Est GFR (CKD-EPI)AfAm (>60 ml/min/1.73 sqM) Est GFR (CKD-EPI)NonAf (>60 ml/min/1.73 sqM) Glucose (74-99) mg/dL POC Glucose (mg/dL) 287 H 244 H (75-99) mg/dL POC Glu Zigzag Tunnel Elastic Operator ID Aníbal, Sheila Spangler, Sheila Calcium (8.4-10.2) mg/dL Phosphorus (2.5-4.5) mg/dL Magnesium (1.6-2.3) mg/dL Total Bilirubin (0.2-1.3) mg/dL AST (14-36) U/L ALT (4-34) U/L Alkaline Phosphatase (38-126) U/L Ammonia (<30) umol/L Troponin I (0.000-0.034) ng/mL Total Protein (6.3-8.2) g/dL Albumin (3.5-5.0) g/dL Fluid Source Peritoneal Fluid Color Colorless Fluid Appearance Hazy Fluid RBC 1 /uL Fluid Nucleated Cells 10 /uL 08/01/19 08/01/19 08/01/19 Range/Units 20:45 21:19 21:28 WBC (3.8-10.6) k/uL RBC (3.80-5.40) m/uL Hgb (11.4-16.0) gm/dL Hct (34.0-46.0) % MCV (80.0-100.0) fL MCH (25.0-35.0) pg MCHC (31.0-37.0) g/dL RDW (11.5-15.5) % Plt Count (150-450) k/uL Neutrophils % % Lymphocytes % % Monocytes % % Eosinophils % % Basophils % % Neutrophils # (1.3-7.7) k/uL Lymphocytes # (1.0-4.8) k/uL Monocytes # (0-1.0) k/uL Eosinophils # (0-0.7) k/uL Basophils # (0-0.2) k/uL Hypochromasia Anisocytosis Macrocytosis PT (9.0-12.0) sec INR (<1.2) APTT (22.0-30.0) sec Sample Site r brac ABG pH 7.33 L (7.35-7.45) ABG pCO2 53 H (35-45) mmHg ABG pO2 72 L (83-108) mmHg ABG HCO3 28 H (21-25) mmol/L ABG Total CO2 29 H (19-24) mmol/L ABG O2 Saturation 94.8 (94-97) % ABG Base Excess 1.8 mmol/L Wu Test Yes FiO2 28 % Sodium 131 L (137-145) mmol/L Potassium 4.7 (3.5-5.1) mmol/L Chloride 93 L (98-107) mmol/L Carbon Dioxide 27 (22-30) mmol/L Anion Gap 11 mmol/L BUN 39 H (7-17) mg/dL Creatinine 11.32 H* (0.52-1.04) mg/dL Est GFR (CKD-EPI)AfAm 4 (>60 ml/min/1.73 sqM) Est GFR (CKD-EPI)NonAf 3 (>60 ml/min/1.73 sqM) Glucose 302 H (74-99) mg/dL POC Glucose (mg/dL) 198 H (75-99) mg/dL POC Glu Zigzag Tunnel Elastic Operator ID Nelly Ruiz Calcium 7.7 L (8.4-10.2) mg/dL Phosphorus (2.5-4.5) mg/dL Magnesium (1.6-2.3) mg/dL Total Bilirubin (0.2-1.3) mg/dL AST (14-36) U/L ALT (4-34) U/L Alkaline Phosphatase (38-126) U/L Ammonia (<30) umol/L Troponin I (0.000-0.034) ng/mL Total Protein (6.3-8.2) g/dL Albumin (3.5-5.0) g/dL Fluid Source Fluid Color Fluid Appearance Fluid RBC /uL Fluid Nucleated Cells /uL 08/01/19 08/01/19 08/01/19 Range/Units 21:28 21:28 21:28 WBC 10.7 H (3.8-10.6) k/uL RBC 3.44 L (3.80-5.40) m/uL Hgb 10.1 L (11.4-16.0) gm/dL Hct 33.9 L (34.0-46.0) % MCV 98.6 (80.0-100.0) fL MCH 29.3 (25.0-35.0) pg MCHC 29.7 L (31.0-37.0) g/dL RDW 17.7 H (11.5-15.5) % Plt Count 330 (150-450) k/uL Neutrophils % 87 % Lymphocytes % 5 % Monocytes % 5 % Eosinophils % 2 % Basophils % 0 % Neutrophils # 9.3 H (1.3-7.7) k/uL Lymphocytes # 0.5 L (1.0-4.8) k/uL Monocytes # 0.6 (0-1.0) k/uL Eosinophils # 0.2 (0-0.7) k/uL Basophils # 0.0 (0-0.2) k/uL Hypochromasia Marked Anisocytosis Slight Macrocytosis Slight PT (9.0-12.0) sec INR (<1.2) APTT (22.0-30.0) sec Sample Site ABG pH (7.35-7.45) ABG pCO2 (35-45) mmHg ABG pO2 (83-108) mmHg ABG HCO3 (21-25) mmol/L ABG Total CO2 (19-24) mmol/L ABG O2 Saturation (94-97) % ABG Base Excess mmol/L Wu Test FiO2 % Sodium (137-145) mmol/L Potassium (3.5-5.1) mmol/L Chloride (98-107) mmol/L Carbon Dioxide (22-30) mmol/L Anion Gap mmol/L BUN (7-17) mg/dL Creatinine (0.52-1.04) mg/dL Est GFR (CKD-EPI)AfAm (>60 ml/min/1.73 sqM) Est GFR (CKD-EPI)NonAf (>60 ml/min/1.73 sqM) Glucose (74-99) mg/dL POC Glucose (mg/dL) (75-99) mg/dL POC Glu Zigzag Tunnel Elastic Operator ID Calcium (8.4-10.2) mg/dL Phosphorus (2.5-4.5) mg/dL Magnesium (1.6-2.3) mg/dL Total Bilirubin (0.2-1.3) mg/dL AST (14-36) U/L ALT (4-34) U/L Alkaline Phosphatase (38-126) U/L Ammonia <9 (<30) umol/L Troponin I 0.209 H* (0.000-0.034) ng/mL Total Protein (6.3-8.2) g/dL Albumin (3.5-5.0) g/dL Fluid Source Fluid Color Fluid Appearance Fluid RBC /uL Fluid Nucleated Cells /uL 08/02/19 Range/Units 00:02 WBC (3.8-10.6) k/uL RBC (3.80-5.40) m/uL Hgb (11.4-16.0) gm/dL Hct (34.0-46.0) % MCV (80.0-100.0) fL MCH (25.0-35.0) pg MCHC (31.0-37.0) g/dL RDW (11.5-15.5) % Plt Count (150-450) k/uL Neutrophils % % Lymphocytes % % Monocytes % % Eosinophils % % Basophils % % Neutrophils # (1.3-7.7) k/uL Lymphocytes # (1.0-4.8) k/uL Monocytes # (0-1.0) k/uL Eosinophils # (0-0.7) k/uL Basophils # (0-0.2) k/uL Hypochromasia Anisocytosis Macrocytosis PT (9.0-12.0) sec INR (<1.2) APTT (22.0-30.0) sec Sample Site ABG pH (7.35-7.45) ABG pCO2 (35-45) mmHg ABG pO2 (83-108) mmHg ABG HCO3 (21-25) mmol/L ABG Total CO2 (19-24) mmol/L ABG O2 Saturation (94-97) % ABG Base Excess mmol/L Wu Test FiO2 % Sodium (137-145) mmol/L Potassium (3.5-5.1) mmol/L Chloride (98-107) mmol/L Carbon Dioxide (22-30) mmol/L Anion Gap mmol/L BUN (7-17) mg/dL Creatinine (0.52-1.04) mg/dL Est GFR (CKD-EPI)AfAm (>60 ml/min/1.73 sqM) Est GFR (CKD-EPI)NonAf (>60 ml/min/1.73 sqM) Glucose (74-99) mg/dL POC Glucose (mg/dL) 264 H (75-99) mg/dL POC Glu Zigzag Tunnel Elastic Operator ID Sroka, Mikhail Calcium (8.4-10.2) mg/dL Phosphorus (2.5-4.5) mg/dL Magnesium (1.6-2.3) mg/dL Total Bilirubin (0.2-1.3) mg/dL AST (14-36) U/L ALT (4-34) U/L Alkaline Phosphatase (38-126) U/L Ammonia (<30) umol/L Troponin I (0.000-0.034) ng/mL Total Protein (6.3-8.2) g/dL Albumin (3.5-5.0) g/dL Fluid Source Fluid Color Fluid Appearance Fluid RBC /uL Fluid Nucleated Cells /uL - EKG Data EKG Comments: Ventricular rate 69, NE interval 222, QRS 88, QT/QTc 444/475. NSR with first degree AV block, prolonged QT, abnormal EKG, no concern for acute ischemia at this time. (aIin Kang) Disposition Is patient prescribed a controlled substance at d/c from ED?: No <Iain Kang - Last Filed: 07/31/19 17:59> <Ana Jordan - Last Filed: 08/03/19 16:01> Clinical Impression: Altered mental status, Elevated troponin Disposition: ADMITTED IP TO THIS HOSP Condition: Serious
[2019-07-31 15:38] LABS: Anisocytosis Slight; Basophils % (A) 0 %; Eosinophils # (A) 0.1 k/uL (0-0.7); Eosinophils % (A) 1 %; HCT 32.7 % (34.0-46.0); HGB 9.8 gm/dL (11.4-16.0); Hypochromasia Marked; Lymphocytes # (A) 0.8 k/uL (1.0-4.8); Lymphocytes % (A) 8 %; MCH 29.6 pg (25.0-35.0); MCHC 30.1 g/dL (31.0-37.0); MCV 98.1 fL (80.0-100.0); Macrocytosis Slight; Mean Platelet Volume 10.8; Monocytes # (A) 0.3 k/uL (0-1.0); Monocytes % (A) 3 %; Neutrophils # (A) 8.4 k/uL (1.3-7.7); Neutrophils % (A) 85 %; Platelet Count 339 k/uL (150-450); RBC 3.33 m/uL (3.80-5.40); RDW 17.4 % (11.5-15.5); WBC 9.8 k/uL (3.8-10.6)
[2019-07-31 15:48] LABS: Partial Thromboplastin Time 25.7 sec (22.0-30.0); Prothrombin Time 10.4 sec (9.0-12.0)
[2019-07-31 15:49] LABS: Albumin 2.8 g/dL (3.5-5.0); Magnesium 2.1 mg/dL (1.6-2.3); Phosphorus 4.9 mg/dL (2.5-4.5); Potassium 4.8 mmol/L (3.5-5.1); Total Bilirubin 0.3 mg/dL (0.2-1.3); Total Protein 6.2 g/dL (6.3-8.2)
--- NOTE | 2019-07-31 15:53 | CT ---
EXAMINATION TYPE: CT brain wo con DATE OF EXAM: 07/31/2019 COMPARISON: 03/11/2017 INDICATION: Mental status changes. DLP: 1142.4 mGycm, Automated exposure control for dose reduction was used. CONTRAST: None CT of the brain is performed utilizing 3 mm thick sections through the posterior fossa and 3 mm thick sections through the remaining calvarium. Study is performed within 24 hours of arrival to the hosp [facility]. No abnormal hyperdensity is present to suggest an acute intracranial hemorrhage. No mass lesion is evident. No acute infarcts are evident. There is some periventricular white matter hypodensity most notably th e white matter adjacent to the posterior horn right lateral ventricle, present previously and appears stable. Findings are most likely related to chronic white matter ischemic change. Ventricles and sulci are appropriate for the patient age. Small retention cyst within the posterior right maxillary sinus. In very tiny retention cyst is withi n the medial left maxillary sinus. Remaining paranasal sinuses are clear. Mastoid air cells are clear . IMPRESSIONS: 1. Stable appearing white matter change in the right parietal-occipital region
--- NOTE | 2019-07-31 15:55 | XR ---
EXAMINATION TYPE: XR chest 2V DATE OF EXAM: 07/31/2019 COMPARISON: 02/23/2019 INDICATION: Altered mental status TECHNIQUE: Frontal and lateral views of the chest are obtained. FINDINGS: The heart size is enlarged. The pulmonary vasculature is upper limits of normal. Some minimal streak atelectasis may be at the left base. There is mild elevation of the right diaphra gm which may be chronic.. IMPRESSION: 1. Mild streak atelectasis left lung base. 2. Cardiomegaly with borderline prominent pulmonary vascular markings. Correlate for volume overload.
[2019-07-31] MEDS ORDERED: ASPIRIN 81 MG PO STA (16:43)
[2019-07-31] MEDS ORDERED: NALOXONE 0.4 MG/ML 1 ML VIAL IV PRN (17:20)
[2019-07-31] MEDS ORDERED: LACTULOSE 20 GM/30 ML CUP PO PRN (19:42)
--- NOTE | 2019-07-31 19:49 | P.HPIM ---
History of Present Illness H&P Date: 07/31/19 Chief Complaint: altered mentation Patient is a 63-year-old -[place] female with a past medical history of end-stage renal disease on peritoneal dialysis, diabetes mellitus type 2 on insulin pump with peripheral neuropathy and peripheral vascular disease, GERD, hypertension, dyslipidemia, and hypothyroidism who presented to the ER due to hearing loss and hallucinations. In the ER she underwent an extensive evaluation. Her initial vital signs were within normal limits. Her anemia was at baseline, creatinine above baseline at 11.53, troponin mildly elevated at 0.136. EKG normal sinus rhythm without any significant ST-T wave changes. CT head shows stable white matter changes in the right parietal occipital lobe. Chest x-ray showed mild streak atelectasis of the left lung base. Due to her elevated troponin she received a dose of aspirin in the emergency department. She was complaining of significant hearing loss, hallucinations, and difficulty staying awake. She was also noted to have alvarez to her upper shoulders that had become unroofed. Arrangements were made for observation. Of note patient was discharged from the hospital on 07/30/2019 after treatment for peritonitis. Patient seen and examined at bedside in the emergency department. She states that yesterday upon discharge from the hospital she was feeling great and back to her normal self. The right home did take a lot out of her. She said she fell asleep with a heating pad on her back for pain. She slept through her normal dialysis and did not receive this. She woke up and noted that she could not hear out of her years bilaterally. She reported some hallucinations, seeing things and hearing things that were not there. She also is feeling more fatigued. She admits to increased abdominal distention. She denies any overt chest pain, shortness of breath, lightheadedness, dizziness, or syncope. She has no other complaints currently. She is very concerned about her hearing loss. Apparently when she initially arrived to the ER she could not hear out of her right or her left ear, tympanic membrane appeared intact, on my exam she could easily hear when I stood on her right thigh but was unable to hear me when asked about her left side. Review of Systems Pertinent positives and negatives as discussed in HPI, a complete review of systems was performed and all other systems are negative. Past Medical History Past Medical History: Diabetes Mellitus, Dialysis, GERD/Reflux, Hyperlipidemia, Hypertension, Memory Impairment, Renal Disease, Thyroid Disorder Additional Past Medical History / Comment(s): peritoneal dialysis daily over night. hx steel syndrome left hand-please use rt arm/hand for iv, blood draws. 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 neck cervical 4,5,6 fused. graft tie off 04/05/2017, eye laser surgery for diabetic retinopathy Past Anesthesia/Blood Transfusion Reactions: No Reported Reaction Past Psychological History: Anxiety, Depression Smoking Status: Never smoker Past Alcohol Use History: None Reported Past Drug Use History: None Reported Additional History: Lives alone, independent in ADLs. - Past Family History Mother Family Medical History: Diabetes Mellitus, Hypertension Additional Family Medical History / Comment(s): colon ca Father Family Medical History: Myocardial Infarction ([place]) Medications and Allergies Home Medications Medication Instructions Recorded Confirmed Type Levothyroxine Sodium [Synthroid] 75 mcg PO DAILY 10/09/16 07/31/19 History Pantoprazole [Protonix] 40 mg PO DAILY 10/09/16 07/31/19 History Clopidogrel [Plavix] 75 mg PO DAILY 03/11/17 07/31/19 History Meclizine [Antivert] 25 mg PO TID PRN 04/26/17 07/31/19 History Furosemide [Lasix] 80 mg PO BID 04/23/18 07/31/19 History Metoprolol Tartrate [Lopressor] 25 mg PO BID #0 tab 11/15/18 07/31/19 Rx Acetaminophen Tab [Tylenol] 650 mg PO Q6HR PRN tab 02/27/19 07/31/19 Rx Calcium Acetate [PhosLo] 667 mg PO TID-W/MEALS cap 02/27/19 07/31/19 Rx Potassium Chloride ER [K-Dur 10] 10 meq PO DAILY tab.er.prt 02/27/19 07/31/19 Rx Calcitriol [Rocaltrol] 0.25 mcg PO Q7D 07/27/19 07/31/19 History Collagenase [Santyl] 1 applic TOPICAL DAILY 07/27/19 07/31/19 History Epoetin Edgardo [Procrit] 40,000 unit SQ MOWEFR 07/27/19 07/31/19 History Escitalopram [Lexapro] 10 mg PO DAILY 07/27/19 07/31/19 History Midodrine HCl [ProAmatine] 10 mg PO MOWEFR 07/27/19 07/31/19 History Pregabalin [Lyrica] 50 mg PO BID 07/27/19 07/31/19 History Torsemide [Demadex] 100 mg PO DAILY 07/27/19 07/31/19 History Allergies Allergy/AdvReac Type Severity Reaction Status Date / Time gabapentin Allergy Rash/Hives Verified 07/31/19 14:22 lisinopril AdvReac Cough Verified 07/31/19 14:22 Physical Exam Osteopathic Statement: *. No significant issues noted on an osteopathic structural exam other than those noted in the History and Physical/Consult. Vitals: Vital Signs Temp Pulse Resp BP Pulse Ox 07/31/19 18:00 98.2 F 77 18 124/89 96 07/31/19 17:00 98.5 F 70 18 108/88 99 07/31/19 16:00 98.5 F 76 18 110/86 98 07/31/19 14:19 98.5 F 72 18 104/90 96 Intake and Output 07/31/19 07/31/19 07/31/19 06:59 14:59 22:59 Other: Weight 104.32 kg General: non toxic, no distress, appears at stated age, obese Derm: Dressing in place over right heel, unroofed blisters bilateral shoulders, no unusual ecchymoses, warm, dry Head: atraumatic, normocephalic, symmetric Eyes: EOMI, no lid lag, anicteric sclera, pupils equal round reactive to light ENT: Nose and ears atraumatic, no thrush, no pharyngeal erythema Neck: No thyromegaly, no cervical lymphadenopathy, trachea midline, supple Mouth: no lip lesion, mucus membranes moist Cardiovascular: S1S2 reg, no murmur, diminished left posterior tibial pulse, 1+ edema, capillary refill less than 2 seconds Lungs: CTA bilateral, no rhonchi, no rales , no accessory muscle use Abdominal: soft, nontender to palpation, no guarding, no appreciable organomegaly, normal bowel sounds Ext: no gross muscle atrophy, muscle strength 5 out of 5 bilateral upper extremities, 4 out of 5 left lower extremity, 4 out of 5 right lower extremity, no contractures, right BKA Neuro: CN II-XI grossly intact, light touch intact all 4 extremities, finger to nose within normal limits, decreased hearing on the left Psych: Alert, oriented, appropriate affect Results CBC & Chem 7: 07/31/19 15:25 07/31/19 15:25 Labs: Abnormal Lab Results - Last 24 Hours (Table) 07/31/19 07/31/19 07/31/19 Range/Units 15:25 15:25 15:25 RBC 3.33 L (3.80-5.40) m/uL Hgb 9.8 L (11.4-16.0) gm/dL Hct 32.7 L (34.0-46.0) % MCHC 30.1 L (31.0-37.0) g/dL RDW 17.4 H (11.5-15.5) % Neutrophils # 8.4 H (1.3-7.7) k/uL Lymphocytes # 0.8 L (1.0-4.8) k/uL Sodium 134 L (137-145) mmol/L Chloride 97 L (98-107) mmol/L BUN 39 H (7-17) mg/dL Creatinine 11.53 H* (0.52-1.04) mg/dL Glucose 165 H (74-99) mg/dL Calcium 8.0 L (8.4-10.2) mg/dL Phosphorus 4.9 H (2.5-4.5) mg/dL Troponin I 0.136 H* (0.000-0.034) ng/mL Total Protein 6.2 L (6.3-8.2) g/dL Albumin 2.8 L (3.5-5.0) g/dL Chest x-ray: report reviewed Thrombosis Risk Factor Assmnt - DVT/VTE Prophylaxis DVT/VTE Prophylaxis: Pharmacologic Prophylaxis ordered Assessment and Plan Assessment: Toxic metabolic encephalopathy with possible hearing loss -Suspect secondary to missing dialysis -Dialysis this evening -Supportive care -No sedative medications Mildly elevated troponin -Serial troponins -Aspirin -Lopressor, statin -Consult cardiology -Check echocardiogram End-stage renal disease on peritoneal dialysis -Discussed with Dr. Chu -Peritoneal dialysis today Recent peritonitis -Due for vancomycin tomorrow -Check cell count differential with this evening dialysis Constipation -Lactulose Diabetes mellitus type 2 insulin requiring -Continue with insulin pump -Sliding-scale insulin -A1c Stage II alvarez upper shoulder and back - wound care - bacitracin cream every 8 hours Left heel ulcer -Offload -Continue dressing changes Chronic: Dyslipidemia Hypertension GERD Hypothyroidism The patient is placed in observation with an anticipated less than 2 midnight stay for evaluation of altered mentation. Surrogate decision-maker: Son CODE STATUS: Full DVT prophylaxis: Heparin Discussed with: Patient, nursing, ED physician, Dr. Chu Anticipated discharge date: 1-[address]: Home A total of 25 minutes was spent on the care of this complex patient more than 50% of the time was spent in counseling and care coordination.
[2019-07-31] MEDS ORDERED: DIALYSIS (PERIT 2.5%) 2,500 ML 62.5 G/2,500 ML BAG INTRAPERIT SCH (20:00)
[2019-07-31 20:58] LABS: Glucose,Whole Blood 125 mg/dL (75-99)
[2019-07-31] MEDS: METOPROLOL TARTRATE 25 MG TAB PO SCH (21:17)
[2019-07-31] MEDS: FUROSEMIDE 80 MG TAB PO SCH (21:17)
[2019-07-31 23:22] LABS: Glucose,Whole Blood 181 mg/dL (75-99)
[2019-08-01] MEDS: MUPIROCIN 2% OINT 22 GM TUBE TOPICAL SCH ×3 (00:11→15:24)
[2019-08-01] MEDS: DIALYSIS (PERIT 2.5%) 2,500 ML 62.5 G/2,500 ML BAG INTRAPERIT SCH ×5 (00:41→09:09)
[2019-08-01 06:11] LABS: Anisocytosis Slight; Basophils # (A) 0.1 k/uL (0-0.2); Basophils % (A) 1 %; Eosinophils # (A) 0.3 k/uL (0-0.7); Eosinophils % (A) 4 %; HCT 30.9 % (34.0-46.0); HGB 9.2 gm/dL (11.4-16.0); Hypochromasia Marked; Lymphocytes # (A) 0.8 k/uL (1.0-4.8); Lymphocytes % (A) 12 %; MCH 29.4 pg (25.0-35.0); MCHC 29.7 g/dL (31.0-37.0); MCV 98.9 fL (80.0-100.0); Macrocytosis Slight; Monocytes # (A) 0.5 k/uL (0-1.0); Monocytes % (A) 7 %; Neutrophils # (A) 4.6 k/uL (1.3-7.7); Neutrophils % (A) 73 %; Platelet Count 265 k/uL (150-450); RBC 3.13 m/uL (3.80-5.40); RDW 17.9 % (11.5-15.5); WBC 6.4 k/uL (3.8-10.6)
[2019-08-01 06:15] LABS: Calcium 7.6 mg/dL (8.4-10.2); Magnesium 1.9 mg/dL (1.6-2.3); Potassium 4.5 mmol/L (3.5-5.1)
[2019-08-01] MEDS: LEVOTHYROXINE 75 MCG TAB PO SCH (06:34)
[2019-08-01] MEDS: CALCIUM ACETATE 667 MG TAB PO SCH ×3 (06:34→15:50)
[2019-08-01] MEDS: PANTOPRAZOLE 40 MG TABLET PO SCH (06:38)
[2019-08-01 06:40] LABS: Glucose,Whole Blood 334 mg/dL (75-99)
[2019-08-01] MEDS: INSULIN ASPART (NovoLOG) 100 UNIT/ML VIAL SQ SCH ×4 (06:46→22:31)
[2019-08-01] MEDS ORDERED: COLLAGENASE 250 UNIT/GM OINTMENT 30 GM TUBE TOPICAL SCH (09:00)
[2019-08-01] MEDS: METOPROLOL TARTRATE 25 MG TAB PO SCH ×2 (09:08→22:31)
[2019-08-01] MEDS: FUROSEMIDE 80 MG TAB PO SCH ×2 (09:08→15:50)
[2019-08-01] MEDS: ESCITALOPRAM 10 MG TAB PO SCH (09:08)
[2019-08-01] MEDS: CLOPIDOGREL 75 MG TAB PO SCH (09:08)
[2019-08-01] MEDS: POTASSIUM CHLORIDE ER 10 MEQ TAB.ER.PRT PO SCH (09:08)
--- NOTE | 2019-08-01 09:33 | ECHOF ---
Referral Reason:CHF, elevated troponin MEASUREMENTS -------- HEIGHT: 180.3 cm WEIGHT: 107.5 kg BP: RVIDd: 2.6 cm (< 3.3) IVSd: 1.0 cm (0.6 - 1.1) LVIDd: 3.9 cm (3.9 - 5.3) LVPWd: 1.1 cm (0.6 - 1.1) IVSs: 1.8 cm LVIDs: 2.5 cm LVPWs: 1.7 cm Ao Diam: 2.9 cm (2.0 - 3.7) AV Cusp: 1.8 cm (1.5 - 2.6) LA Diam: 3.0 cm (2.7 - 3.8) MV EXCURSION: 14.577 mm (> 18.000) MV EF SLOPE: 72 mm/s (70 - 150) EPSS: 0.9 cm MV E Ryan: 0.53 m/s MV DecT: 223 ms MV A Ryan: 0.40 m/s MV E/A Ratio: 1.32 RAP: 5.00 mmHg RVSP: 21.84 mmHg FINDINGS -------- Sinus rhythm. This was a technically difficult study with suboptimal views. The left ventricular size is normal. Left ventricular wall thickness is normal. Overall left vent ricular systolic function is normal with, an EF between 55 - 60 %. The right ventricle is normal in size. The left atrial size is normal. The right atrial size is normal. Lumason used The aortic valve is trileaflet, and appears structurally normal. No aortic stenosis or regurgitation. The mitral valve is normal. There is trace mitral regurgitation. The tricuspid valve appears structurally normal. Trace tricuspid regurgitation present. Right alis tricular systolic pressure is normal at < 35 mmHg. Trace/mild (physiologic) pulmonic regurgitation. The aortic root size is normal. IVC Not well visulized. There is no pericardial effusion. CONCLUSIONS -------- 1. This was a technically difficult study with suboptimal views. 2. Left ventricular wall thickness is normal. 3. Overall left ventricular systolic function is normal with, an EF between 55 - 60 %. 4. The left atrial size is normal. 5. Lumason used 6. The aortic valve is trileaflet, and appears structurally normal. No aortic stenosis or regurgitati on. 7. There is trace mitral regurgitation. 8. Trace tricuspid regurgitation present. 9. Right ventricular systolic pressure is normal at < 35 mmHg. 10. Trace/mild (physiologic) pulmonic regurgitation. 11. IVC Not well visulized. 12. There is no pericardial effusion. SIGNALLING AND COMMUNICATIONS ENGINEER: Melita Gannon RDCS
--- NOTE | 2019-08-01 09:38 | P.NPCON ---
History of Present Illness - Reason for Consult end stage renal disease - History of Present Illness Reason for consultation: End-stage renal disease History of present illness: Patient is a 63-year-old female seen in consultation for end-stage renal disease. She is maintained on peritoneal dialysis. Patient was just discharged from the hospital 2 days ago and at that time was admitted for abdominal pain. She was noted to have bacterial peritonitis with fluid culture positive for staph epidermidis and Proteus mirabilis. She received intraperitoneal vancomycin on July 26 and was also started on intraperitoneal Fortaz daily. Patient became more confused and there was concern for hallucinations as well. Therefore she presented to the hospital. Currently she is awake and alert. However she states she has lost hearing. No vomiting or diarrhea. No abdominal pain. No fever or chills. Vital signs are stable. General: The patient appeared well nourished and normally developed. HEENT: Head exam is unremarkable. Neck is without jugular venous distension. LUNGS: Lungs are clear to auscultation and percussion. Breath sounds decreased. HEART: Rate and Rhythm are regular. First and second heart sounds normal. No murmurs, rubs or gallops. ABDOMEN: Soft. Nontender. EXTREMITITES: 1+ edema. Chronic changes noted. BKA noted. Past Medical History Past Medical History: Diabetes Mellitus, Dialysis, GERD/Reflux, Hyperlipidemia, Hypertension, Memory Impairment, Renal Disease, Thyroid Disorder Additional Past Medical History / Comment(s): peritoneal dialysis daily over night. hx steel syndrome left hand-please use rt arm/hand for iv, blood draws. 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 neck cervical 4,5,6 fused. graft tie off 04/05/2017, eye laser surgery for diabetic retinopathy Past Anesthesia/Blood Transfusion Reactions: No Reported Reaction Past Psychological History: Anxiety, Depression Smoking Status: Never smoker Past Alcohol Use History: None Reported Past Drug Use History: None Reported - Past Family History Mother Family Medical History: Diabetes Mellitus, Hypertension Additional Family Medical History / Comment(s): colon ca Father Family Medical History: Myocardial Infarction ([place]) Medications and Allergies Home Medications Medication Instructions Recorded Confirmed Type Levothyroxine Sodium [Synthroid] 75 mcg PO DAILY 10/09/16 07/31/19 History Pantoprazole [Protonix] 40 mg PO DAILY 10/09/16 07/31/19 History Clopidogrel [Plavix] 75 mg PO DAILY 03/11/17 07/31/19 History Meclizine [Antivert] 25 mg PO TID PRN 04/26/17 07/31/19 History Furosemide [Lasix] 80 mg PO BID 04/23/18 07/31/19 History Metoprolol Tartrate [Lopressor] 25 mg PO BID #0 tab 11/15/18 07/31/19 Rx Acetaminophen Tab [Tylenol] 650 mg PO Q6HR PRN tab 02/27/19 07/31/19 Rx Calcium Acetate [PhosLo] 667 mg PO TID-W/MEALS cap 02/27/19 07/31/19 Rx Potassium Chloride ER [K-Dur 10] 10 meq PO DAILY tab.er.prt 02/27/19 07/31/19 Rx Calcitriol [Rocaltrol] 0.25 mcg PO Q7D 07/27/19 07/31/19 History Collagenase [Santyl] 1 applic TOPICAL DAILY 07/27/19 07/31/19 History Epoetin Edgardo [Procrit] 4,000 unit SQ MOWEFR 07/27/19 07/31/19 History Escitalopram [Lexapro] 10 mg PO DAILY 07/27/19 07/31/19 History Midodrine HCl [ProAmatine] 10 mg PO MOWEFR 07/27/19 07/31/19 History Pregabalin [Lyrica] 50 mg PO BID 07/27/19 07/31/19 History Torsemide [Demadex] 100 mg PO DAILY 07/27/19 07/31/19 History Allergies Allergy/AdvReac Type Severity Reaction Status Date / Time gabapentin Allergy Rash/Hives Verified 07/31/19 14:22 lisinopril AdvReac Cough Verified 07/31/19 14:22 Physical Exam Vitals: Vital Signs Temp Pulse Pulse Resp BP BP Pulse Ox 08/01/19 08:00 97.9 F 66 18 108/56 96 08/01/19 04:00 97.6 F 65 20 117/55 100 08/01/19 03:45 97.6 F 65 20 117/55 100 08/01/19 00:49 98.3 F 69 20 148/93 100 08/01/19 00:00 60 20 07/31/19 23:40 97.5 F L 60 20 104/51 100 07/31/19 20:00 69 20 148/93 100 07/31/19 19:00 98.2 F 74 18 110/74 97 07/31/19 18:00 98.2 F 77 18 124/89 96 07/31/19 17:00 98.5 F 70 18 108/88 99 07/31/19 16:00 98.5 F 76 18 110/86 98 07/31/19 14:19 98.5 F 72 18 104/90 96 Intake and Output 07/31/19 08/01/19 08/01/19 22:59 06:59 14:59 Intake Total 0 Output Total 0 Balance 0 0 Intake: Oral 0 Output: Urine 0 Other: # Voids 0 0 # Bowel Movements 0 0 Weight 104.32 kg 107.9 kg Results - Lab Results Most recent lab results Calcium 7.6 mg/dL (8.4-10.2) L 08/01/19 05:37 Phosphorus 4.9 mg/dL (2.5-4.5) H 07/31/19 15:25 Magnesium 1.9 mg/dL (1.6-2.3) 08/01/19 05:37 08/01/19 05:37 08/01/19 05:37 Assessment and Plan Plan: Assessment: 1. End-stage renal disease maintained on peritoneal dialysis. 2. CAPD associated peritonitis with fluid culture positive for strep epidermidis and Proteus mirabilis dated 07/27/2019. 3. Chronic kidney disease mineral bone disease maintained on PhosLo and calcitriol. 4. Anemia of chronic kidney disease maintained on Aranesp. 5. Diabetes mellitus. Plan: Maintain current PD echanges. She received first dose of intraperitoneal vancomycin on July 26. Second dose will be given today. Continue with Fortaz 1 g daily. This was also started on July 26. Repeat cell count culture and Gram stain today. Maintain lactulose as needed for constipation. Thank you for the consultation. I will continue to follow the patient with you during her hospital stay.
--- NOTE | 2019-08-01 09:43 | CONS ---
CONSULTATION REASON FOR CONSULTATION: Elevated troponins. Mrs. Maldonado Cedillo is a 63-year-old lady with end-stage renal disease, on the peritoneal dialysis. She has history of hypothyroidism, hypertension, and autonomic dysfunction on midodrine. She has peritoneal dialysis. She came into the hospital mostly with altered mentation. Apparently she was in the hospital not long ago. She has multiple comorbid conditions. She states that she went home after discharge, slept on a heating pad and had some alvarez on her back and is having difficulty in hearing and has no chest pain, but complains of generalized weakness and lack of energy. She came in basically with these symptoms and troponin was performed and there are 3 values, all of them are somewhat flat and do not suggest a trend to suggest myocardial injury. This lady has end-stage renal disease on insulin pump with a peripheral neuropathy as well. She had a CAT scan of the head that revealed some stable changes in the white matter in the right parietal and occipital lobes. Chest x-ray does not reveal any congestion. Clinical picture does not suggest that of myocardial injury, although given her comorbid condition, she may have CAD. I do not believe we are dealing with acute ischemic syndrome. PAST MEDICAL HISTORY: Diabetes on insulin pump, end-stage renal disease on dialysis, hypertension, hyperlipidemia, memory impairment, renal disease, hypothyroidism. The patient is status post right below-knee amputation uses a prosthesis. Also has history of some diabetic neuropathy. MEDICATIONS: Medications at home include Synthroid, Protonix, Plavix, midodrine, metoprolol tartrate 25 mg b.i.d., Tylenol, calcitriol, Epoetin and Demadex 100 mg daily. ALLERGIES: She has allergies to LISINOPRIL and GABAPENTIN. PHYSICAL EXAMINATION: On examination, blood pressure is 128/70, pulse rate is about 64 per minute. HEENT: Unremarkable. Limited exam was performed. Neck is supple. I cannot appreciate a JVD. Neck is short and thick. Heart exam reveals S1, S2 distant heart sound, short systolic murmur. Lungs reveal diminished air entry. Abdomen is soft. Right lower right lower extremity shows a below-knee amputation. Left lower extremity reveal diminished pulses and is wrapped up with bandages and edema. EKG revealed a sinus mechanism, nonspecific ST and T changes. LABORATORY DATA: Suggests 3 values of troponin in the range of 0.3, 0.2 and 0.1. IMPRESSION: 1. Altered mentation, probably secondary to uremia and renal failure. 2. End-stage renal disease, on peritoneal dialysis. 3. Diabetes with elevated blood sugar this morning. 4. Elevated troponin, not suggestive of myocardial injury. 5. History of multiple comorbid conditions. RECOMMENDATIONS: I am recommending no intervention from a cardiac standpoint. At this time, would continue her current medications, optimize blood sugar control. I will obtain an echocardiogram to assess LV function and also I am recommending some blood cultures to rule out any sepsis. I discussed my thoughts in detail with the patient, but I am not so sure how much she comprehends. Thank you very much for consult. EUGENIA / IJN: [id number] /
[2019-08-01 11:49] LABS: Glucose,Whole Blood 287 mg/dL (75-99)
[2019-08-01 13:02] LABS: Appearance,BF Hazy; Color,BF Colorless; Nucleated Cells, Body Fluid 10 /uL; RBC, Body Fluid 1 /uL
[2019-08-01] MEDS ORDERED: DIALYSIS DEX INTRAPERIT ONE (15:00)
[2019-08-01] MEDS ORDERED: VANCOMYCIN INTRAPERIT ONE (15:00)
[2019-08-01 17:20] LABS: Glucose,Whole Blood 244 mg/dL (75-99)
[2019-08-01 20:46] LABS: Glucose,Whole Blood 198 mg/dL (75-99)
[2019-08-01] MEDS ORDERED: DEXTROSE 50% SYRINGE 50 ML IVP ONE ×2 (20:59→21:08)
[2019-08-01] MEDS ORDERED: DIALYSIS DEX INTRAPERIT SCH (21:00)
[2019-08-01] MEDS ORDERED: CEFTAZIDIME INTRAPERIT SCH (21:00)
[2019-08-01] MEDS ORDERED: DEXTROSE 50% SYRINGE 50 ML IVP STA (21:14)
[2019-08-01 21:23] LABS: ABG Base Excess 1.8 mmol/L; ABG HCO3 28 mmol/L (21-25); ABG Oxygen Saturation 94.8 % (94-97); ABG PCO2 53 mmHg (35-45); ABG PH 7.33 (7.35-7.45); ABG PO2 72 mmHg (83-108); ABG TCO2 29 mmol/L (19-24); Allen Test Performed? Yes
[2019-08-01 21:38] LABS: Anisocytosis Slight; Basophils % (A) 0 %; Eosinophils # (A) 0.2 k/uL (0-0.7); Eosinophils % (A) 2 %; HCT 33.9 % (34.0-46.0); HGB 10.1 gm/dL (11.4-16.0); Hypochromasia Marked; Lymphocytes # (A) 0.5 k/uL (1.0-4.8); Lymphocytes % (A) 5 %; MCH 29.3 pg (25.0-35.0); MCHC 29.7 g/dL (31.0-37.0); MCV 98.6 fL (80.0-100.0); Macrocytosis Slight; Mean Platelet Volume 10.1; Monocytes # (A) 0.6 k/uL (0-1.0); Monocytes % (A) 5 %; Neutrophils # (A) 9.3 k/uL (1.3-7.7); Neutrophils % (A) 87 %; Platelet Count 330 k/uL (150-450); RBC 3.44 m/uL (3.80-5.40); RDW 17.7 % (11.5-15.5); WBC 10.7 k/uL (3.8-10.6)
--- NOTE | 2019-08-01 21:40 | P.PN ---
Subjective Progress Note Date: 08/01/19 Principal diagnosis: hearing loss Patient is a 63-year-old -[place] female with a past medical history of end-stage renal disease on peritoneal dialysis, diabetes mellitus type 2 on insulin pump with peripheral neuropathy and peripheral vascular disease, GERD, hypertension, dyslipidemia, and hypothyroidism who presented to the ER due to hearing loss and hallucinations. In the ER she underwent an extensive evaluation. Her initial vital signs were within normal limits. Her anemia was at baseline, creatinine above baseline at 11.53, troponin mildly elevated at 0.136. EKG normal sinus rhythm without any significant ST-T wave changes. CT head shows stable white matter changes in the right parietal occipital lobe. Chest x-ray showed mild streak atelectasis of the left lung base. Due to her elevated troponin she received a dose of aspirin in the emergency department. She was complaining of significant hearing loss, hallucinations, and difficulty staying awake. She was also noted to have alvarez to her upper shoulders that had become unroofed. Arrangements were made for observation.By the time she was seen in the emergency department she was awake alert talking and concerned about missing PD and hearing loss. On the morning of 08/01/2019 she was alert awake and talking. Her insulin pump had been removed by nursing and she was worried about it being removed. Patient seen and examined at bedside. She is worried about not having her insulin pump on and states that he needs to be restarted. She is also concerned that she continues to have hearing loss left greater than right. She denies any dizziness, lightheadedness, nausea, vomiting, ear pain. She denies any chest congestion or shortness of breath. She states that her abdominal pain is much improved. Objective - Vital Signs Vital signs: Vital Signs Temp 97.5 F L 08/01/19 16:00 Pulse 65 08/01/19 16:00 Resp 18 08/01/19 16:00 BP 117/59 08/01/19 16:00 Pulse Ox 96 08/01/19 16:00 Intake & Output 08/01/19 08/01/19 08/02/19 06:59 18:59 06:59 Intake Total 0 240 Output Total 0 Balance 0 240 Weight 107.9 kg Intake: Oral 0 240 Output: Urine 0 Other: # Voids 0 0 # Bowel Movements 0 - Exam General: ill appearing, no distress, appears at stated age Derm: dressing inplace over left heal, warm, dry Head: atraumatic, normocephalic, symmetric, [place] Eyes: EOMI, no lid lag, anicteric sclera Mouth: no lip lesion, mucus membranes moist Cardiovascular: S1S2 reg, no murmur, right BKA, 2+ brachail pulse right Lungs: decrease bs bilateral bilateral, no rhonchi, no rales , no accessory muscle use Abdominal: soft, nontender to palpation, no guarding, no appreciable organomegaly Ext: no gross muscle atrophy, no edema, no contractures Neuro: CN II-XI grossly intact, no focal neuro deficits Psych: Alert, oriented, appropriate affect - Labs CBC & Chem 7: 08/01/19 05:37 08/01/19 05:37 Labs: Abnormal Lab Results - Last 24 Hours (Table) 07/31/19 07/31/19 07/31/19 Range/Units 20:46 21:54 23:21 RBC (3.80-5.40) m/uL Hgb (11.4-16.0) gm/dL Hct (34.0-46.0) % MCHC (31.0-37.0) g/dL RDW (11.5-15.5) % Lymphocytes # (1.0-4.8) k/uL Sodium (137-145) mmol/L BUN (7-17) mg/dL Creatinine (0.52-1.04) mg/dL Glucose (74-99) mg/dL POC Glucose (mg/dL) 125 H 181 H (75-99) mg/dL Calcium (8.4-10.2) mg/dL Troponin I 0.316 H* (0.000-0.034) ng/mL 08/01/19 08/01/19 08/01/19 Range/Units 05:37 05:37 05:37 RBC 3.13 L (3.80-5.40) m/uL Hgb 9.2 L (11.4-16.0) gm/dL Hct 30.9 L (34.0-46.0) % MCHC 29.7 L (31.0-37.0) g/dL RDW 17.9 H (11.5-15.5) % Lymphocytes # 0.8 L (1.0-4.8) k/uL Sodium 132 L (137-145) mmol/L BUN 41 H (7-17) mg/dL Creatinine 11.55 H* (0.52-1.04) mg/dL Glucose 297 H (74-99) mg/dL POC Glucose (mg/dL) (75-99) mg/dL Calcium 7.6 L (8.4-10.2) mg/dL Troponin I 0.281 H* (0.000-0.034) ng/mL 08/01/19 08/01/19 08/01/19 Range/Units 06:39 11:48 17:18 RBC (3.80-5.40) m/uL Hgb (11.4-16.0) gm/dL Hct (34.0-46.0) % MCHC (31.0-37.0) g/dL RDW (11.5-15.5) % Lymphocytes # (1.0-4.8) k/uL Sodium (137-145) mmol/L BUN (7-17) mg/dL Creatinine (0.52-1.04) mg/dL Glucose (74-99) mg/dL POC Glucose (mg/dL) 334 H 287 H 244 H (75-99) mg/dL Calcium (8.4-10.2) mg/dL Troponin I (0.000-0.034) ng/mL 08/01/19 Range/Units 20:45 RBC (3.80-5.40) m/uL Hgb (11.4-16.0) gm/dL Hct (34.0-46.0) % MCHC (31.0-37.0) g/dL RDW (11.5-15.5) % Lymphocytes # (1.0-4.8) k/uL Sodium (137-145) mmol/L BUN (7-17) mg/dL Creatinine (0.52-1.04) mg/dL Glucose (74-99) mg/dL POC Glucose (mg/dL) 198 H (75-99) mg/dL Calcium (8.4-10.2) mg/dL Troponin I (0.000-0.034) ng/mL Microbiology - Last 24 Hours (Table) 08/01/19 09:15 Body Fluid Culture - Preliminary Peritoneal Fluid Assessment and Plan Assessment: Hearing loss acute -CT head negative - ? due to vanco toxicity vs meniers vs other - consult neurology -Supportive care Mildly elevated troponin -Serial troponins flat, not consistent with CAD -Aspirin -Lopressor, statin -cardiology recs appreciated -echocardiogram with preserved EF End-stage renal disease on peritoneal dialysis -Discussed with Dr. Chu -Peritoneal dialysis today with vacno and fortaz Recent peritonitis with staph epi and proteus -vanoc and fortaz with PD Constipation -Lactulose Diabetes mellitus type 2 insulin requiring -Sliding-scale insulin -A1c pending - insulin pump removed per patient hx of hypoglycemia with long acting insulin Stage II alvarez upper shoulder and back - wound care - bacitracin cream every 8 hours Left heel ulcer -Offload -Continue dressing changes Hyponatremia - likely due to increased fluid balalnce - PD - nephro recs Chronic: Dyslipidemia Hypertension GERD Hypothyroidism Toxic metabolic encephalopathy, improved DVT prophylaxis: Heparin Discussed with: Patient, nursing, Dr. Chu Anticipated discharge date: 1-[address]: Home A total of 25 minutes was spent on the care of this complex patient more than 50% of the time was spent in counseling and care coordination.
[2019-08-01 21:47] LABS: Calcium 7.7 mg/dL (8.4-10.2); Potassium 4.7 mmol/L (3.5-5.1)
--- NOTE | 2019-08-01 21:56 | CT ---
EXAMINATION TYPE: CT brain wo con DATE OF EXAM: 08/01/2019 COMPARISON: Yesterday HISTORY: ams CT DLP: 1091.4 mGycm Automated exposure control for dose reduction was used. Ventricles have normal size. There is no mass effect nor midline shift. There is no sign of intracran ial hemorrhage. There is some white matter hypodensity right posterior parietal lobe that measures 2 x 1 cm. The calvarium is intact. Skull base is intact. There is 1 cm mucous retention cyst in the rig ht maxillary sinus. IMPRESSION: Right posterior parietal white matter hypodensity consistent with ischemic infarct not changed compar ed to yesterday. No acute intracranial abnormality.
--- NOTE | 2019-08-01 22:23 | P.EN ---
I was called by RN to evaluate patient due to changes in mental status This seems like patient from earlier was alert oriented 4 she is a dialysis patient on peritoneal dialysis. She also has a wound in her left leg which did not look infected earlier. Official diagnoses Hypoglycemia, point of care blood glucose is not reliable . The day team which measured 191. Patient was given D50 and she started becoming more awake basic metabolic panel later on after the D50 showed blood sugar of 305 Patient has not received any narcotics Patient was very hard to wake initially this could be due to metabolic encephalopathy from her dialysis that she missed yesterday versus hypoglycemia Acute intracranial process could not be ruled out. However stat CT of the brain without contrast was done and showed no acute abnormalities. ABG was done showed pH of 7.33 with pCO2 of 55 and bicarb of 27 this wouldn't really explain her acute changes but will do a trial of BiPAP now the patient is more awake We'll continue close monitoring of vital signs and mental status with neuro checks Patient now is alert and follows simple commands. However she's not back to her baseline compared to this morning 35 minutes were spent and critical care time spent attending this patient care
[2019-08-01] MEDS ORDERED: MIDODRINE 5 MG TAB PO STA (22:39)
[2019-08-01] MEDS ORDERED: SODIUM CHLORIDE 0.9% 500 ML 500 ML IV ONE (23:49)
[2019-08-02 00:04] LABS: Glucose,Whole Blood 264 mg/dL (75-99)
[2019-08-02] MEDS ORDERED: VANCOMYCIN IV PER PHARMACY 1 EACH MISC MISCELLANE PRN (00:28)
[2019-08-02] MEDS: DIALYSIS DEX INTRAPERIT SCH ×5 (00:44→23:35)
[2019-08-02] MEDS: CEFTAZIDIME INTRAPERIT SCH ×2 (00:44→23:35)
[2019-08-02] MEDS: PIPERACILLIN-TAZOBACTAM 3.375 GM in SODIUM CHLORIDE 0.9% 100 ML IVPB SCH ×2 (01:30→12:45)
[2019-08-02] MEDS: MUPIROCIN 2% OINT 22 GM TUBE TOPICAL SCH ×4 (01:43→22:14)
[2019-08-02] MEDS ORDERED: VANCOMYCIN 1,500 MG in SODIUM CHLORIDE 0.9% 250 ML IVPB ONE (02:00)
[2019-08-02 05:07] LABS: Anisocytosis Slight; Basophils % (A) 0 %; Eosinophils # (A) 0.2 k/uL (0-0.7); Eosinophils % (A) 1 %; HCT 32.6 % (34.0-46.0); HGB 9.6 gm/dL (11.4-16.0); Hypochromasia Marked; Lymphocytes # (A) 0.5 k/uL (1.0-4.8); Lymphocytes % (A) 5 %; MCH 28.9 pg (25.0-35.0); MCHC 29.6 g/dL (31.0-37.0); MCV 97.9 fL (80.0-100.0); Macrocytosis Slight; Monocytes # (A) 0.7 k/uL (0-1.0); Monocytes % (A) 7 %; Neutrophils % (A) 85 %; Platelet Count 279 k/uL (150-450); RBC 3.33 m/uL (3.80-5.40); RDW 17.7 % (11.5-15.5); WBC 10.5 k/uL (3.8-10.6)
[2019-08-02 05:19] LABS: Calcium 7.5 mg/dL (8.4-10.2); Potassium 4.5 mmol/L (3.5-5.1)
--- NOTE | 2019-08-02 06:38 | XR ---
EXAMINATION TYPE: XR chest 1V portable DATE OF EXAM: 08/02/2019 HISTORY: pneumonia. REFERENCE: Previous study dated 07/31/2019. FINDINGS: There is chronic apparent elevation right hemidiaphragm. The heart is mildly enlarged. There is improved aeration of both lungs. No definite pleural fluid is seen. IMPRESSION: 1. CARDIOMEGALY. 2. IMPROVED AERATION, BOTH LUNGS.
[2019-08-02] MEDS: INSULIN ASPART (NovoLOG) 100 UNIT/ML VIAL SQ SCH ×4 (07:11→23:01)
[2019-08-02] MEDS: LEVOTHYROXINE 75 MCG TAB PO SCH ×2 (07:12→09:26)
[2019-08-02] MEDS: CALCIUM ACETATE 667 MG TAB PO SCH ×4 (07:13→17:26)
[2019-08-02] MEDS: PANTOPRAZOLE 40 MG TABLET PO SCH ×2 (07:14→09:26)
[2019-08-02 07:20] LABS: Glucose,Whole Blood 305 mg/dL (75-99)
[2019-08-02 08:47] LABS: Glucose,Whole Blood 303 mg/dL (75-99)
--- NOTE | 2019-08-02 09:04 | P.PN ---
Subjective Patient is seen in follow-up for end-stage renal disease. She is maintained on peritoneal dialysis. Patient became more confused last night and was hallucinating. There was concern for stroke. Brain CT was negative. Currently awake and alert. Still can't hear out of her left ear. Vital signs are stable. General: The patient appeared well nourished and normally developed. HEENT: Head exam is unremarkable. Neck is without jugular venous distension. LUNGS: Lungs are clear to auscultation and percussion. Breath sounds decreased. HEART: Rate and Rhythm are regular. ABDOMEN: Soft, nontender. EXTREMITITES: Right BKA noted. Left lower extremity wrapped. Chronic changes noted. Objective - Vital Signs Vital signs: Vital Signs Temp 98.6 F 08/02/19 06:00 Pulse 65 08/02/19 07:00 Resp 14 08/02/19 07:00 BP 124/81 08/02/19 07:00 Pulse Ox 100 08/02/19 07:00 Intake & Output 08/01/19 08/02/19 08/02/19 18:59 06:59 18:59 Intake Total 240 780 10 Balance 240 780 10 Intake: IV 30 10 0.9 Normal Saline 30 10 Intake, IV Titration 750 Amount Sodium Chloride 0.9% 500 500 ml 500 ml @ 999 mls/hr IV .Q31M ONE Rx#:[id number] Vancomycin 1,500 mg In 250 Sodium Chloride 0.9% 250 ml @ 125 mls/hr IVPB ONCE ONE Rx#:[id number] Oral 240 Other: # Voids 0 # Bowel Movements 0 - Labs CBC & Chem 7: 08/02/19 04:46 08/02/19 04:46 Labs: Abnormal Lab Results - Last 24 Hours (Table) 08/01/19 08/01/19 08/01/19 Range/Units 11:48 17:18 20:45 WBC (3.8-10.6) k/uL RBC (3.80-5.40) m/uL Hgb (11.4-16.0) gm/dL Hct (34.0-46.0) % MCHC (31.0-37.0) g/dL RDW (11.5-15.5) % Neutrophils # (1.3-7.7) k/uL Lymphocytes # (1.0-4.8) k/uL ABG pH (7.35-7.45) ABG pCO2 (35-45) mmHg ABG pO2 (83-108) mmHg ABG HCO3 (21-25) mmol/L ABG Total CO2 (19-24) mmol/L Sodium (137-145) mmol/L Chloride (98-107) mmol/L BUN (7-17) mg/dL Creatinine (0.52-1.04) mg/dL Glucose (74-99) mg/dL POC Glucose (mg/dL) 287 H 244 H 198 H (75-99) mg/dL Calcium (8.4-10.2) mg/dL Troponin I (0.000-0.034) ng/mL 08/01/19 08/01/19 08/01/19 Range/Units 21:19 21:28 21:28 WBC 10.7 H (3.8-10.6) k/uL RBC 3.44 L (3.80-5.40) m/uL Hgb 10.1 L (11.4-16.0) gm/dL Hct 33.9 L (34.0-46.0) % MCHC 29.7 L (31.0-37.0) g/dL RDW 17.7 H (11.5-15.5) % Neutrophils # 9.3 H (1.3-7.7) k/uL Lymphocytes # 0.5 L (1.0-4.8) k/uL ABG pH 7.33 L (7.35-7.45) ABG pCO2 53 H (35-45) mmHg ABG pO2 72 L (83-108) mmHg ABG HCO3 28 H (21-25) mmol/L ABG Total CO2 29 H (19-24) mmol/L Sodium 131 L (137-145) mmol/L Chloride 93 L (98-107) mmol/L BUN 39 H (7-17) mg/dL Creatinine 11.32 H* (0.52-1.04) mg/dL Glucose 302 H (74-99) mg/dL POC Glucose (mg/dL) (75-99) mg/dL Calcium 7.7 L (8.4-10.2) mg/dL Troponin I (0.000-0.034) ng/mL 08/01/19 08/02/19 08/02/19 Range/Units 21:28 00:02 04:46 WBC (3.8-10.6) k/uL RBC 3.33 L (3.80-5.40) m/uL Hgb 9.6 L (11.4-16.0) gm/dL Hct 32.6 L (34.0-46.0) % MCHC 29.6 L (31.0-37.0) g/dL RDW 17.7 H (11.5-15.5) % Neutrophils # 9.0 H (1.3-7.7) k/uL Lymphocytes # 0.5 L (1.0-4.8) k/uL ABG pH (7.35-7.45) ABG pCO2 (35-45) mmHg ABG pO2 (83-108) mmHg ABG HCO3 (21-25) mmol/L ABG Total CO2 (19-24) mmol/L Sodium (137-145) mmol/L Chloride (98-107) mmol/L BUN (7-17) mg/dL Creatinine (0.52-1.04) mg/dL Glucose (74-99) mg/dL POC Glucose (mg/dL) 264 H (75-99) mg/dL Calcium (8.4-10.2) mg/dL Troponin I 0.209 H* (0.000-0.034) ng/mL 08/02/19 08/02/19 08/02/19 Range/Units 04:46 07:08 08:46 WBC (3.8-10.6) k/uL RBC (3.80-5.40) m/uL Hgb (11.4-16.0) gm/dL Hct (34.0-46.0) % MCHC (31.0-37.0) g/dL RDW (11.5-15.5) % Neutrophils # (1.3-7.7) k/uL Lymphocytes # (1.0-4.8) k/uL ABG pH (7.35-7.45) ABG pCO2 (35-45) mmHg ABG pO2 (83-108) mmHg ABG HCO3 (21-25) mmol/L ABG Total CO2 (19-24) mmol/L Sodium 131 L (137-145) mmol/L Chloride 95 L (98-107) mmol/L BUN 38 H (7-17) mg/dL Creatinine 11.22 H* (0.52-1.04) mg/dL Glucose 318 H (74-99) mg/dL POC Glucose (mg/dL) 305 H 303 H (75-99) mg/dL Calcium 7.5 L (8.4-10.2) mg/dL Troponin I (0.000-0.034) ng/mL Microbiology - Last 24 Hours (Table) 08/01/19 09:15 Gram Stain - Preliminary Peritoneal Fluid Body Fluid Culture - Preliminary Assessment and Plan Plan: Assessment: 1. End-stage renal disease maintained on peritoneal dialysis. 2. CAPD associated peritonitis with fluid culture positive for strep epider midis and Proteus mirabilis dated 07/27/2019. Most recent cell count 10. It was 2765 initially. 3. Chronic kidney disease mineral bone disease maintained on PhosLo and calcitriol. 4. Anemia of chronic kidney disease maintained on Aranesp. 5. Diabetes mellitus. 6. Altered mental status. Brain CT revealed a right parietal ischemic infarct same from prior CT. Plan: Maintain current PD echanges - now on 1.5% solution. She received first dose of intraperitoneal vancomycin on July 26. Second dose given July 31. Continue with Fortaz 1 g daily. This was also started on July 26. Maintain lactulose as needed for constipation. Check vancomycin level. Dose to be adjusted for renal function.
[2019-08-02] MEDS: CLOPIDOGREL 75 MG TAB PO SCH (09:26)
[2019-08-02] MEDS: POTASSIUM CHLORIDE ER 10 MEQ TAB.ER.PRT PO SCH (09:26)
[2019-08-02] MEDS: METOPROLOL TARTRATE 25 MG TAB PO SCH ×2 (09:37→22:13)
[2019-08-02] MEDS: ESCITALOPRAM 10 MG TAB PO SCH (09:56)
--- NOTE | 2019-08-02 12:37 | MR ---
EXAMINATION TYPE: MR brain wo con DATE OF EXAM: 08/02/2019 12:24 PM. COMPARISON: NONE. HISTORY: Stroke like symptoms. Technique: Multiplanar, multiecho imaging of the brain was obtained without intravenous contrast. FINDINGS: Structures are unremarkable. There is a normal craniocervical junction. There is Echoplanar diffusion imaging demonstrates no areas of restricted diffusion. Small area of increased s ignal in the external capsule on the left is believed to BE artifactual. There are normal vascular flow voids. The orbits are unremarkable. There is no evidence of a CP angle mass lesion. There is a 11 mm lesion in the posterior aspect of the right maxillary sinus likely representing a re tention cyst or polyp There is scattered high signal lesions in the deep white matter tracts of both cerebral hemispheres s lightly greater number on the right than the left but only measuring approximately 4-5 in total numbe r. There is no mass effect or midline shift. I do not see evidence of intracranial blood. IMPRESSION: 1. NO ACUTE INTRACRANIAL ABNORMALITY. 2. SCATTERED HIGH SIGNAL LESIONS IN THE DEEP WHITE MATTER TRACTS OF THE CEREBRAL HEMISPHERES ON FLAIR IMAGING IS NONSPECIFIC. A DIFFERENTIAL DIAGNOSIS INCLUDES HYPERTENSION, DEMYELINATION, MIGRAINE HEAD ACHES, SMALL VESSEL DISEASE AND LYME'S DISEASE.
[2019-08-02 12:39] LABS: Glucose,Whole Blood 248 mg/dL (75-99)
--- NOTE | 2019-08-02 14:14 | P.CNPUL ---
History of Present Illness Consult date: 08/02/19 Chief complaint: Altered mental status History of present illness: This is a 63-year-old. Patient will go chest for today intensive care unit be cause of an altered mental status. This patient has an incisional disease and she is undergoing peritoneal dialysis. The patient also has peripheral vascular disease, below-knee amputation right lower extremity and the patient has a chronic left heel wound for which she goes to the wound center. She also is diabetic. The patient was hospitalized few days back and yesterday she was found to be quite obtunded and lethargic and encephalopathic. Neurology team has been on the case. However, around midnight, the patient became more unresponsive and a code stroke was called and the patient was not found to be a candidate for TPA based on on-call neurologist. CAT scan of the head showed no acute abnormalities. The patient had a blood gas that showed a pH of 7.33 with a pCO2 of 55 and CO2 narcosis/encephalopathy related to CO2 retention was suspected and the patient got transferred to the intensive care unit where she was given BiPAP overnight. Chest x-ray showed no acute abnormalities. No reported aspiration. The patient was already receiving intraperitoneal cefepime treatment 1 g every 24 hours and the patient was also receiving IV Zosyn and vancomycin as broad-spectrum antibiotic coverage. This morning, the patient seems to quite appropriate. She is awake and alert. She is currently on 6 L of oxygen by nasal cannula and her pulse ox is around 99-100%. She denies having any chest pain. No cough sputum production chest tightness or wheezing. She denies having any previous history of obstructive sleep apnea. She is obese with a BMI of 34.1. She is undergoing peritoneal dialysis and the dialysate has been switched to 1.5 solution 4 times a day to allow her blood pressure to stabilize. She is not having any hemodynamic changes of hypotension for now. Note that the patient's peritoneal fluid was sent again for cultures and results are still pending for now. The earlier cultures from 07/27/2019 was positive for staph epidermidis and Proteus mirabilis. Her blood work and electrodes are all within normal limits. Random vancomycin level is at 37.9 and the vancomycin is currently on hold. No fever. No focal neurological deficit. She is able to move all 4 extremities without any limitation for now. Review of Systems Constitutional: Reports fatigue, Reports weakness Eyes: bilateral decreased vision, denies as per HPI, denies blurred vision Ears: deny: decreased hearing, ear discharge, earache, tinnitus Ears, nose, mouth and throat: Reports as per HPI Breasts: absent: as per HPI, change in shape, gynecomastia, masses, nipple discharge, pain, skin changes, swelling Cardiovascular: Reports decreased exercise tolerance, Reports dyspnea on exertion Respiratory: Reports as per HPI Gastrointestinal: Reports as per HPI (Patient undergoes peritoneal dialysis. Peritoneal catheter is in place.) Genitourinary: Reports as per HPI Menstruation: Reports as per HPI Musculoskeletal: Reports as per HPI (Heel wound in the left lower extremity), Reports prior amputations Musculoskeletal: absent: ankle pain, ankle stiffness, ankle swelling (Note that the patient has a below-knee amputation on the right) Integumentary: Reports wounds (Heel wound in the left lower extremity) Neurological: Reports confusion, Reports gait dysfunction Psychiatric: Reports as per HPI Endocrine: Reports as per HPI, Reports high blood sugars Hematologic/Lymphatic: Reports as per HPI Allergic/Immunologic: Reports allergic rhinitis Past Medical History Past Medical History: Diabetes Mellitus, Dialysis, GERD/Reflux, Hyperlipidemia, Hypertension, Memory Impairment, Renal Disease, Thyroid Disorder Additional Past Medical History / Comment(s): peritoneal dialysis daily over night. hx steel syndrome left hand-please use rt arm/hand for iv, blood draws. diabetic neuropathy and diabetic retinopathy, Rt BKA uses prosthesis. Left heel wound History of Any Multi-Drug Resistant Organisms: ESBL, MRSA, Other MDRO Date of last positivie culture/infection: 06/09/19 ESBL / 2016 MRSA MDRO Source:: MDRO URINE MRSA FOOT ESBL FOOT Past Surgical History: Back Surgery, Hysterectomy Additional Past Surgical History / Comment(s): RBKA 01/23/16 R/T DM. neck cervical 4,5,6 fused. graft tie off 04/05/2017, eye laser surgery for diabetic retinopathy Past Anesthesia/Blood Transfusion Reactions: No Reported Reaction Past Psychological History: Anxiety, Depression Smoking Status: Never smoker Past Alcohol Use History: None Reported Past Drug Use History: None Reported - Past Family History Mother Family Medical History: Diabetes Mellitus, Hypertension Additional Family Medical History / Comment(s): colon ca Father Family Medical History: Myocardial Infarction ([place]) Medications and Allergies Home Medications Medication Instructions Recorded Confirmed Type Levothyroxine Sodium [Synthroid] 75 mcg PO DAILY 10/09/16 07/31/19 History Pantoprazole [Protonix] 40 mg PO DAILY 10/09/16 07/31/19 History Clopidogrel [Plavix] 75 mg PO DAILY 03/11/17 07/31/19 History Meclizine [Antivert] 25 mg PO TID PRN 04/26/17 07/31/19 History Furosemide [Lasix] 80 mg PO BID 04/23/18 07/31/19 History Metoprolol Tartrate [Lopressor] 25 mg PO BID #0 tab 11/15/18 07/31/19 Rx Acetaminophen Tab [Tylenol] 650 mg PO Q6HR PRN tab 02/27/19 07/31/19 Rx Calcium Acetate [PhosLo] 667 mg PO TID-W/MEALS cap 02/27/19 07/31/19 Rx Potassium Chloride ER [K-Dur 10] 10 meq PO DAILY tab.er.prt 02/27/19 07/31/19 Rx Calcitriol [Rocaltrol] 0.25 mcg PO Q7D 07/27/19 07/31/19 History Collagenase [Santyl] 1 applic TOPICAL DAILY 07/27/19 07/31/19 History Epoetin Edgardo [Procrit] 4,000 unit SQ MOWEFR 07/27/19 07/31/19 History Escitalopram [Lexapro] 10 mg PO DAILY 07/27/19 07/31/19 History Midodrine HCl [ProAmatine] 10 mg PO MOWEFR 07/27/19 07/31/19 History Pregabalin [Lyrica] 50 mg PO BID 07/27/19 07/31/19 History Torsemide [Demadex] 100 mg PO DAILY 07/27/19 07/31/19 History Allergies Allergy/AdvReac Type Severity Reaction Status Date / Time gabapentin Allergy Rash/Hives Verified 07/31/19 14:22 lisinopril AdvReac Cough Verified 07/31/19 14:22 Physical Exam Vitals: Vital Signs Temp Pulse Pulse Resp BP BP BP 08/02/19 11:00 61 9 L 106/50 08/02/19 10:00 63 13 101/53 08/02/19 09:00 64 14 123/51 08/02/19 08:00 98.3 F 66 68 33 H 126/47 08/02/19 07:00 65 14 124/81 08/02/19 06:00 98.6 F 65 12 94/46 08/02/19 05:00 60 12 111/52 08/02/19 04:00 70 14 98/50 08/02/19 03:00 72 14 105/45 08/02/19 02:00 63 14 123/52 08/02/19 01:00 68 14 101/47 08/02/19 00:00 99.6 F 68 14 94/52 08/01/19 22:50 08/01/19 22:43 81 81/47 08/01/19 22:36 68 85/46 08/01/19 22:31 62 82/45 08/01/19 22:26 99.1 F 80 78/42 08/01/19 22:07 78 92/50 08/01/19 21:58 79 84/49 08/01/19 21:49 99.1 F 67 89/52 08/01/19 20:40 100.1 F H 65 14 102/57 102/57 08/01/19 16:00 97.5 F L 65 18 117/59 Pulse Ox 08/02/19 11:00 100 08/02/19 10:00 100 08/02/19 09:00 100 08/02/19 08:00 100 08/02/19 07:00 100 08/02/19 06:00 100 08/02/19 05:00 100 08/02/19 04:00 100 08/02/19 03:00 100 08/02/19 02:00 100 08/02/19 01:00 100 08/02/19 00:00 100 08/01/19 22:50 100 08/01/19 22:43 98 08/01/19 22:36 96 08/01/19 22:31 98 08/01/19 22:26 98 08/01/19 22:07 97 08/01/19 21:58 96 08/01/19 21:49 98 08/01/19 20:40 100 08/01/19 16:00 96 Intake and Output 08/01/19 08/02/19 08/02/19 22:59 06:59 14:59 Intake Total 120 780 50 Balance 120 780 50 Intake: IV 30 50 0.9 Normal Saline 30 50 Intake, IV Titration 750 Amount Sodium Chloride 0.9% 500 500 ml 500 ml @ 999 mls/hr IV .Q31M ONE Rx#:[id number] Vancomycin 1,500 mg In 250 Sodium Chloride 0.9% 250 ml @ 125 mls/hr IVPB ONCE ONE Rx#:[id number] Oral 120 Other: # Voids 0 # Bowel Movements 0 Gen. appearance, comfortable wheeze nonacute distress communicating and answering questions appropriately. Head exam was generally normal. There was no scleral icterus or corneal arcus. Mucous membranes were moist. Neck was supple and without jugular venous distension, thyromegaly, or carotid bruits. Carotids were easily palpable bilaterally. There was no adenopathy. Lungs sounds are diminished bilaterally especially in lung bases more so on the right. No wheezes. No rhonchi. Cardiac exam revealed the PMI to be normally situated and sized. The rhythm was regular and no extrasystoles were noted during several minutes of auscultation. The first and second heart sounds were normal and physiologic splitting of the second heart sound was noted. There were no murmurs, rubs, clicks, or gallops. Abdomen soft and nontender and the patient is a peritoneal catheter in place. There is some ascites and fluid within the peritoneal cavity related to PD. No organomegaly. No direct tenderness. No rebound tenderness. No guarding. Extremities revealed a bili of dictation on the right. There is a large stage IV he'll also on the left. Pulses in lower extremities are quite diminished. There is trace edema. There is no cyanosis or clubbing. Neurologically alert and awake and there is no focal neurological deficits. Results - Laboratory Findings CBC and BMP: 08/02/19 04:46 08/02/19 04:46 ABG ABG pH 7.33 (7.35-7.45) L 08/01/19 21: ABG pCO2 53 mmHg (35-45) H 08/01/19 21: ABG pO2 72 mmHg (83-108) L 08/01/19 21: ABG O2 Saturation 94.8 % (94-97) 08/01/19 21:19 PT/INR, D-dimer PT 10.4 sec (9.0-12.0) 07/31/19 15:25 INR 1.0 (<1.2) 07/31/19 15:25 Abnormal lab findings: Abnormal Labs 07/31/19 07/31/19 07/31/19 15:25 15:25 15:25 WBC RBC 3.33 L Hgb 9.8 L Hct 32.7 L MCHC 30.1 L RDW 17.4 H Neutrophils # 8.4 H Lymphocytes # 0.8 L ABG pH ABG pCO2 ABG pO2 ABG HCO3 ABG Total CO2 Sodium 134 L Chloride 97 L BUN 39 H Creatinine 11.53 H* Glucose 165 H POC Glucose (mg/dL) Calcium 8.0 L Phosphorus 4.9 H Troponin I 0.136 H* Total Protein 6.2 L Albumin 2.8 L 07/31/19 07/31/19 07/31/19 20:46 21:54 23:21 WBC RBC Hgb Hct MCHC RDW Neutrophils # Lymphocytes # ABG pH ABG pCO2 ABG pO2 ABG HCO3 ABG Total CO2 Sodium Chloride BUN Creatinine Glucose POC Glucose (mg/dL) 125 H 181 H Calcium Phosphorus Troponin I 0.316 H* Total Protein Albumin 08/01/19 08/01/19 08/01/19 05:37 05:37 05:37 WBC RBC 3.13 L Hgb 9.2 L Hct 30.9 L MCHC 29.7 L RDW 17.9 H Neutrophils # Lymphocytes # 0.8 L ABG pH ABG pCO2 ABG pO2 ABG HCO3 ABG Total CO2 Sodium 132 L Chloride BUN 41 H Creatinine 11.55 H* Glucose 297 H POC Glucose (mg/dL) Calcium 7.6 L Phosphorus Troponin I 0.281 H* Total Protein Albumin 08/01/19 08/01/19 08/01/19 06:39 11:48 17:18 WBC RBC Hgb Hct MCHC RDW Neutrophils # Lymphocytes # ABG pH ABG pCO2 ABG pO2 ABG HCO3 ABG Total CO2 Sodium Chloride BUN Creatinine Glucose POC Glucose (mg/dL) 334 H 287 H 244 H Calcium Phosphorus Troponin I Total Protein Albumin 08/01/19 08/01/19 08/01/19 20:45 21:19 21:28 WBC RBC Hgb Hct MCHC RDW Neutrophils # Lymphocytes # ABG pH 7.33 L ABG pCO2 53 H ABG pO2 72 L ABG HCO3 28 H ABG Total CO2 29 H Sodium 131 L Chloride 93 L BUN 39 H Creatinine 11.32 H* Glucose 302 H POC Glucose (mg/dL) 198 H Calcium 7.7 L Phosphorus Troponin I Total Protein Albumin 08/01/19 08/01/19 08/02/19 21:28 21:28 00:02 WBC 10.7 H RBC 3.44 L Hgb 10.1 L Hct 33.9 L MCHC 29.7 L RDW 17.7 H Neutrophils # 9.3 H Lymphocytes # 0.5 L ABG pH ABG pCO2 ABG pO2 ABG HCO3 ABG Total CO2 Sodium Chloride BUN Creatinine Glucose POC Glucose (mg/dL) 264 H Calcium Phosphorus Troponin I 0.209 H* Total Protein Albumin 08/02/19 08/02/19 08/02/19 04:46 04:46 07:08 WBC RBC 3.33 L Hgb 9.6 L Hct 32.6 L MCHC 29.6 L RDW 17.7 H Neutrophils # 9.0 H Lymphocytes # 0.5 L ABG pH ABG pCO2 ABG pO2 ABG HCO3 ABG Total CO2 Sodium 131 L Chloride 95 L BUN 38 H Creatinine 11.22 H* Glucose 318 H POC Glucose (mg/dL) 305 H Calcium 7.5 L Phosphorus Troponin I Total Protein Albumin 08/02/19 08/02/19 08:46 12:38 WBC RBC Hgb Hct MCHC RDW Neutrophils # Lymphocytes # ABG pH ABG pCO2 ABG pO2 ABG HCO3 ABG Total CO2 Sodium Chloride BUN Creatinine Glucose POC Glucose (mg/dL) 303 H 248 H Calcium Phosphorus Troponin I Total Protein Albumin - Diagnostic Findings Chest x-ray: image reviewed Assessment and Plan Plan: 1 altered mental status, exact cause is not clear. CAT scan of the brain was negative. No signs of any CVA. Consider TIA. Consider metabolic encephalopathy. Consider seizure activity. Consider hypercapnic respiratory failure creating some degree of CO2 narcosis. The blood gas was abnormal. The patient was treated with BiPAP. The patient improved he had the patient is back to her normal baseline status. Based on the blood gas, the patient is a component of acute respiratory acidosis and the patient continues to be requiring oxygen between 2- per minute nasal cannula. Chest x-ray shows no acute abnormalities 2 hypotension and the patient has been switched to a 1.5 dialysate 3 incisional disease maintained on peritoneal dialysis 4 CAPD with a possibility of a gram-negative peritonitis with Proteus mirabilis and addition to staph epidermidis and the patient is currently on intraperitoneal Fortaz 5 diabetes mellitus 6 anemia of chronic disease 7 left heel ulcer, stage IV does not seem to be infected this point in time 8 below-knee amputation of the right lower extremity 9 obesity 10 history of hypertension 11 hypothyroidism 12 diabetic peripheral neuropathy Plan Proceed with MRI of the brain May need an EEG May need an neurology consultation Repeated blood gases Continue same antibiotic coverage hold vancomycin for now as the vancomycin levels are quite elevated. Continue the peritoneal Fortaz and IV Zosyn Drop the dialysate to 1.5, 4 times a day and monitor the blood pressure Wound care to the left heel we'll continue to follow the patient ICU for another 24 hours
[2019-08-02 15:54] LABS: ABG Base Excess 2.3 mmol/L; ABG HCO3 28 mmol/L (21-25); ABG Oxygen Saturation 99.2 % (94-97); ABG PCO2 53 mmHg (35-45); ABG PH 7.33 (7.35-7.45); ABG PO2 135 mmHg (83-108); ABG TCO2 30 mmol/L (19-24); Allen Test Performed? Yes
[2019-08-02 17:24] LABS: Glucose,Whole Blood 225 mg/dL (75-99)
--- NOTE | 2019-08-02 19:47 | P.PN ---
Subjective Progress Note Date: 08/02/19 Principal diagnosis: hearing loss Patient is a 63-year-old -[place] female with a past medical history of end-stage renal disease on peritoneal dialysis, diabetes mellitus type 2 on insulin pump with peripheral neuropathy and peripheral vascular disease, GERD, hypertension, dyslipidemia, and hypothyroidism who presented to the ER due to hearing loss and hallucinations. In the ER she underwent an extensive evaluation. Her initial vital signs were within normal limits. Her anemia was at baseline, creatinine above baseline at 11.53, troponin mildly elevated at 0.136. EKG normal sinus rhythm without any significant ST-T wave changes. CT head shows stable white matter changes in the right parietal occipital lobe. Chest x-ray showed mild streak atelectasis of the left lung base. Due to her elevated troponin she received a dose of aspirin in the emergency department. She was complaining of significant hearing loss, hallucinations, and difficulty staying awake. She was also noted to have alvarez to her upper shoulders that had become unroofed. Arrangements were made for observation.By the time she was seen in the emergency department she was awake alert talking and concerned about missing PD and hearing loss. On the morning of 08/01/2019 she was alert awake and talking. Her insulin pump had been removed by nursing and she was worried about it being removed. On the evening of 08/01/2019 A team called due to confusion and letheragy. ABD showed slight hypercapnia and she was started on Bipap and had improvement. Patient seen and examined at bedside. No Chest pain, SOB, nausea, or vomitiong. Still c/o hearing loss, some right arm give way that is inconsistent, and visual hallucinations. Objective - Vital Signs Vital signs: Vital Signs Temp 98.2 F 08/02/19 16:00 Pulse 63 08/02/19 19:00 Resp 12 08/02/19 19:00 BP 105/52 08/02/19 19:00 Pulse Ox 99 08/02/19 19:00 Intake & Output 08/02/19 08/02/19 08/03/19 06:59 18:59 06:59 Intake Total 780 120 10 Output Total 0 Balance 780 120 10 Intake: IV 30 120 10 0.9 Normal Saline 30 120 10 Intake, IV Titration 750 Amount Sodium Chloride 0.9% 500 500 ml 500 ml @ 999 mls/hr IV .Q31M ONE Rx#:[id number] Vancomycin 1,500 mg In 250 Sodium Chloride 0.9% 250 ml @ 125 mls/hr IVPB ONCE ONE Rx#:[id number] Output: Urine 0 Other: # Voids 0 0 # Bowel Movements 0 0 - Exam General: non toxic , no distress, appears at stated age Derm: left heal with stage IV pressure ulcer no slough black eschar on bottom, no drainage, warm, dry Head: atraumatic, normocephalic, symmetric, [place] Eyes: EOMI, no lid lag, anicteric sclera Mouth: no lip lesion, mucus membranes moist Cardiovascular: S1S2 reg, no murmur, right BKA, 2+ brachail pulse right Lungs: decrease bs bilateral bilateral, no rhonchi, no rales , no accessory muscle use Abdominal: soft, nontender to palpation, no guarding, no appreciable organomegaly Ext: no gross muscle atrophy, no edema, no contractures Neuro: CN II-XI grossly intact, no focal neuro deficits (states arm is falling when she is holding it up) Psych: Alert, oriented, hallucinations. - Labs CBC & Chem 7: 08/02/19 04:46 08/02/19 04:46 Labs: Abnormal Lab Results - Last 24 Hours (Table) 08/01/19 08/01/19 08/01/19 Range/Units 20:45 21:19 21:28 WBC (3.8-10.6) k/uL RBC (3.80-5.40) m/uL Hgb (11.4-16.0) gm/dL Hct (34.0-46.0) % MCHC (31.0-37.0) g/dL RDW (11.5-15.5) % Neutrophils # (1.3-7.7) k/uL Lymphocytes # (1.0-4.8) k/uL ABG pH 7.33 L (7.35-7.45) ABG pCO2 53 H (35-45) mmHg ABG pO2 72 L (83-108) mmHg ABG HCO3 28 H (21-25) mmol/L ABG Total CO2 29 H (19-24) mmol/L ABG O2 Saturation (94-97) % Sodium 131 L (137-145) mmol/L Chloride 93 L (98-107) mmol/L BUN 39 H (7-17) mg/dL Creatinine 11.32 H* (0.52-1.04) mg/dL Glucose 302 H (74-99) mg/dL POC Glucose (mg/dL) 198 H (75-99) mg/dL Calcium 7.7 L (8.4-10.2) mg/dL Troponin I (0.000-0.034) ng/mL 08/01/19 08/01/19 08/02/19 Range/Units 21:28 21:28 00:02 WBC 10.7 H (3.8-10.6) k/uL RBC 3.44 L (3.80-5.40) m/uL Hgb 10.1 L (11.4-16.0) gm/dL Hct 33.9 L (34.0-46.0) % MCHC 29.7 L (31.0-37.0) g/dL RDW 17.7 H (11.5-15.5) % Neutrophils # 9.3 H (1.3-7.7) k/uL Lymphocytes # 0.5 L (1.0-4.8) k/uL ABG pH (7.35-7.45) ABG pCO2 (35-45) mmHg ABG pO2 (83-108) mmHg ABG HCO3 (21-25) mmol/L ABG Total CO2 (19-24) mmol/L ABG O2 Saturation (94-97) % Sodium (137-145) mmol/L Chloride (98-107) mmol/L BUN (7-17) mg/dL Creatinine (0.52-1.04) mg/dL Glucose (74-99) mg/dL POC Glucose (mg/dL) 264 H (75-99) mg/dL Calcium (8.4-10.2) mg/dL Troponin I 0.209 H* (0.000-0.034) ng/mL 08/02/19 08/02/19 08/02/19 Range/Units 04:46 04:46 07:08 WBC (3.8-10.6) k/uL RBC 3.33 L (3.80-5.40) m/uL Hgb 9.6 L (11.4-16.0) gm/dL Hct 32.6 L (34.0-46.0) % MCHC 29.6 L (31.0-37.0) g/dL RDW 17.7 H (11.5-15.5) % Neutrophils # 9.0 H (1.3-7.7) k/uL Lymphocytes # 0.5 L (1.0-4.8) k/uL ABG pH (7.35-7.45) ABG pCO2 (35-45) mmHg ABG pO2 (83-108) mmHg ABG HCO3 (21-25) mmol/L ABG Total CO2 (19-24) mmol/L ABG O2 Saturation (94-97) % Sodium 131 L (137-145) mmol/L Chloride 95 L (98-107) mmol/L BUN 38 H (7-17) mg/dL Creatinine 11.22 H* (0.52-1.04) mg/dL Glucose 318 H (74-99) mg/dL POC Glucose (mg/dL) 305 H (75-99) mg/dL Calcium 7.5 L (8.4-10.2) mg/dL Troponin I (0.000-0.034) ng/mL 08/02/19 08/02/19 08/02/19 Range/Units 08:46 12:38 15:39 WBC (3.8-10.6) k/uL RBC (3.80-5.40) m/uL Hgb (11.4-16.0) gm/dL Hct (34.0-46.0) % MCHC (31.0-37.0) g/dL RDW (11.5-15.5) % Neutrophils # (1.3-7.7) k/uL Lymphocytes # (1.0-4.8) k/uL ABG pH 7.33 L (7.35-7.45) ABG pCO2 53 H (35-45) mmHg ABG pO2 135 H (83-108) mmHg ABG HCO3 28 H (21-25) mmol/L ABG Total CO2 30 H (19-24) mmol/L ABG O2 Saturation 99.2 H (94-97) % Sodium (137-145) mmol/L Chloride (98-107) mmol/L BUN (7-17) mg/dL Creatinine (0.52-1.04) mg/dL Glucose (74-99) mg/dL POC Glucose (mg/dL) 303 H 248 H (75-99) mg/dL Calcium (8.4-10.2) mg/dL Troponin I (0.000-0.034) ng/mL 08/02/19 Range/Units 17:23 WBC (3.8-10.6) k/uL RBC (3.80-5.40) m/uL Hgb (11.4-16.0) gm/dL Hct (34.0-46.0) % MCHC (31.0-37.0) g/dL RDW (11.5-15.5) % Neutrophils # (1.3-7.7) k/uL Lymphocytes # (1.0-4.8) k/uL ABG pH (7.35-7.45) ABG pCO2 (35-45) mmHg ABG pO2 (83-108) mmHg ABG HCO3 (21-25) mmol/L ABG Total CO2 (19-24) mmol/L ABG O2 Saturation (94-97) % Sodium (137-145) mmol/L Chloride (98-107) mmol/L BUN (7-17) mg/dL Creatinine (0.52-1.04) mg/dL Glucose (74-99) mg/dL POC Glucose (mg/dL) 225 H (75-99) mg/dL Calcium (8.4-10.2) mg/dL Troponin I (0.000-0.034) ng/mL Microbiology - Last 24 Hours (Table) 08/02/19 10:39 Urine Culture - Preliminary Urine,Voided 08/01/19 09:15 Gram Stain - Preliminary Peritoneal Fluid Body Fluid Culture - Preliminary Assessment and Plan Assessment: Acute encephalopathy, hearing loss, and visual hallucinations - wakefullness improved with CPAP - Neuro consult when available on 08/03 - psych consult - monitor closely - MRI with scattered high signsal in the deep white matter- suspect due to small vessel disease - CT head negative - ? due to vanco toxicity vs meniers vs other -Supportive care Mildly elevated troponin -Serial troponins flat, not consistent with CAD -Aspirin -Lopressor, statin -cardiology recs appreciated -echocardiogram with preserved EF End-stage renal disease on peritoneal dialysis -Discussed with Dr. Chu -Peritoneal dialysis today with fortaz Recent peritonitis with staph epi and proteus -frotaz with PD, WBC in fluid 10 Constipation -Lactulose Diabetes mellitus type 2 insulin requiring -Sliding-scale insulin -A1c pending - insulin pump removed per patient hx of hypoglycemia with long acting insulin Stage II alvarez upper shoulder and back - wound care - bacitracin cream every 8 hours Left heel ulcer, stage IV,does not appear infected -Offload -Continue dressing changes Hyponatremia - likely due to increased fluid balalnce - PD - nephro recs Chronic: Dyslipidemia Hypertension GERD Hypothyroidism Toxic metabolic encephalopathy, improved DVT prophylaxis: Heparin Discussed with: Patient, nursing, Dr. Daniel Anticipated discharge date: 3-[address]: Home A total of 25 minutes was spent on the care of this complex patient more than 50% of the time was spent in counseling and care coordination.
[2019-08-02 22:05] LABS: Glucose,Whole Blood 57 mg/dL (75-99)
[2019-08-02 22:05] LABS: Glucose,Whole Blood 53 mg/dL (75-99)
[2019-08-02 22:19] LABS: Glucose,Whole Blood 52 mg/dL (75-99)
[2019-08-02 22:57] LABS: Glucose,Whole Blood 62 mg/dL (75-99)
[2019-08-02 23:00] LABS: Glucose,Whole Blood 88 mg/dL (75-99)
[2019-08-02] MEDS: ACETAMINOPHEN TAB 325 MG TAB PO PRN (23:21)
[2019-08-03] MEDS: PIPERACILLIN-TAZOBACTAM 3.375 GM in SODIUM CHLORIDE 0.9% 100 ML IVPB SCH ×2 (01:20→12:17)
[2019-08-03 02:39] LABS: Glucose,Whole Blood 239 mg/dL (75-99)
[2019-08-03] MEDS: DIALYSIS DEX INTRAPERIT SCH ×4 (03:55→23:02)
[2019-08-03 05:28] LABS: Calcium 7.5 mg/dL (8.4-10.2); Potassium 4.5 mmol/L (3.5-5.1)
[2019-08-03 05:33] LABS: Vancomycin,Random 26.6 ug/mL
[2019-08-03 05:52] LABS: Anisocytosis Slight; Basophils % (A) 0 %; Eosinophils # (A) 0.1 k/uL (0-0.7); Eosinophils % (A) 2 %; HCT 30.1 % (34.0-46.0); Hypochromasia Marked; Lymphocytes # (A) 0.6 k/uL (1.0-4.8); Lymphocytes % (A) 9 %; MCH 29.3 pg (25.0-35.0); MCHC 29.9 g/dL (31.0-37.0); MCV 98.1 fL (80.0-100.0); Macrocytosis Slight; Mean Platelet Volume 10.6; Monocytes # (A) 0.5 k/uL (0-1.0); Monocytes % (A) 6 %; Neutrophils # (A) 5.7 k/uL (1.3-7.7); Neutrophils % (A) 81 %; Platelet Count 260 k/uL (150-450); RBC 3.07 m/uL (3.80-5.40); WBC 7.1 k/uL (3.8-10.6)
[2019-08-03 06:37] LABS: Glucose,Whole Blood 311 mg/dL (75-99)
[2019-08-03] MEDS: INSULIN ASPART (NovoLOG) 100 UNIT/ML VIAL SQ SCH ×4 (06:40→20:38)
[2019-08-03] MEDS: LEVOTHYROXINE 75 MCG TAB PO SCH (06:42)
[2019-08-03] MEDS: CALCIUM ACETATE 667 MG TAB PO SCH ×3 (06:42→17:51)
[2019-08-03] MEDS: PANTOPRAZOLE 40 MG TABLET PO SCH (06:42)
[2019-08-03] MEDS: ESCITALOPRAM 10 MG TAB PO SCH (08:12)
[2019-08-03] MEDS: CLOPIDOGREL 75 MG TAB PO SCH (08:12)
[2019-08-03] MEDS: POTASSIUM CHLORIDE ER 10 MEQ TAB.ER.PRT PO SCH (08:12)
[2019-08-03] MEDS: MUPIROCIN 2% OINT 22 GM TUBE TOPICAL SCH ×3 (08:16→21:08)
[2019-08-03] MEDS: METOPROLOL TARTRATE 25 MG TAB PO SCH ×2 (08:16→20:38)
[2019-08-03] MEDS: INSULIN DETEMIR (LEVEMIR) 100 UNIT/ML SYR SQ SCH (09:09)
[2019-08-03 09:17] LABS: ABG Base Excess 2.3 mmol/L; ABG HCO3 28 mmol/L (21-25); ABG Oxygen Saturation 96.6 % (94-97); ABG PCO2 54 mmHg (35-45); ABG PH 7.33 (7.35-7.45); ABG PO2 84 mmHg (83-108); ABG TCO2 30 mmol/L (19-24); Allen Test Performed? Yes
--- NOTE | 2019-08-03 10:16 | P.PN ---
Subjective Patient is seen in follow-up for end-stage renal disease. She is maintained on peritoneal dialysis. She continues to have hallucinations. Doing a little better compared to yesterday. There was concern for stroke. Brain CT and MRI was negative. Currently awake and alert. Hearing from the left ear is still impaired. Vital signs are stable. General: The patient appeared well nourished and normally developed. HEENT: Head exam is unremarkable. Neck is without jugular venous distension. LUNGS: Lungs are clear to auscultation and percussion. Breath sounds decreased. HEART: Rate and Rhythm are regular. ABDOMEN: Soft, nontender. EXTREMITITES: Right BKA noted. Left lower extremity wrapped. Chronic changes noted. Objective - Vital Signs Vital signs: Vital Signs Temp 98.5 F 08/03/19 08:00 Pulse 58 L 08/03/19 09:00 Resp 11 L 08/03/19 09:00 BP 110/50 08/03/19 09:00 Pulse Ox 98 08/03/19 09:00 Intake & Output 08/02/19 08/03/19 08/03/19 18:59 06:59 18:59 Intake Total 120 210 30 Output Total 0 0 Balance 120 210 30 Weight 102.7 kg Intake: IV 120 210 30 0.9 Normal Saline 120 110 30 Piperacillin-Tazobactam 3 100 .375 gm In Sodium Chloride 0.9% 100 ml @ 25 mls/hr IVPB Q12H COUNTS INCLUDE 234 BEDS AT THE [facility] Rx# :[id number] Output: Urine 0 0 Other: # Voids 0 0 # Bowel Movements 0 0 - Labs CBC & Chem 7: 08/03/19 03:49 08/03/19 03:49 Labs: Abnormal Lab Results - Last 24 Hours (Table) 08/02/19 08/02/19 08/02/19 Range/Units 12:38 15:39 17:23 RBC (3.80-5.40) m/uL Hgb (11.4-16.0) gm/dL Hct (34.0-46.0) % MCHC (31.0-37.0) g/dL RDW (11.5-15.5) % Lymphocytes # (1.0-4.8) k/uL ABG pH 7.33 L (7.35-7.45) ABG pCO2 53 H (35-45) mmHg ABG pO2 135 H (83-108) mmHg ABG HCO3 28 H (21-25) mmol/L ABG Total CO2 30 H (19-24) mmol/L ABG O2 Saturation 99.2 H (94-97) % Sodium (137-145) mmol/L Chloride (98-107) mmol/L BUN (7-17) mg/dL Creatinine (0.52-1.04) mg/dL Glucose (74-99) mg/dL POC Glucose (mg/dL) 248 H 225 H (75-99) mg/dL Calcium (8.4-10.2) mg/dL 08/02/19 08/02/19 08/02/19 Range/Units 22:02 22:04 22:18 RBC (3.80-5.40) m/uL Hgb (11.4-16.0) gm/dL Hct (34.0-46.0) % MCHC (31.0-37.0) g/dL RDW (11.5-15.5) % Lymphocytes # (1.0-4.8) k/uL ABG pH (7.35-7.45) ABG pCO2 (35-45) mmHg ABG pO2 (83-108) mmHg ABG HCO3 (21-25) mmol/L ABG Total CO2 (19-24) mmol/L ABG O2 Saturation (94-97) % Sodium (137-145) mmol/L Chloride (98-107) mmol/L BUN (7-17) mg/dL Creatinine (0.52-1.04) mg/dL Glucose (74-99) mg/dL POC Glucose (mg/dL) 53 L 57 L 52 L (75-99) mg/dL Calcium (8.4-10.2) mg/dL 08/02/19 08/03/19 08/03/19 Range/Units 22:37 02:37 03:49 RBC (3.80-5.40) m/uL Hgb (11.4-16.0) gm/dL Hct (34.0-46.0) % MCHC (31.0-37.0) g/dL RDW (11.5-15.5) % Lymphocytes # (1.0-4.8) k/uL ABG pH (7.35-7.45) ABG pCO2 (35-45) mmHg ABG pO2 (83-108) mmHg ABG HCO3 (21-25) mmol/L ABG Total CO2 (19-24) mmol/L ABG O2 Saturation (94-97) % Sodium 131 L (137-145) mmol/L Chloride 93 L (98-107) mmol/L BUN 36 H (7-17) mg/dL Creatinine 11.23 H* (0.52-1.04) mg/dL Glucose 269 H (74-99) mg/dL POC Glucose (mg/dL) 62 L 239 H (75-99) mg/dL Calcium 7.5 L (8.4-10.2) mg/dL 08/03/19 08/03/19 08/03/19 Range/Units 03:49 06:35 09:15 RBC 3.07 L (3.80-5.40) m/uL Hgb 9.0 L (11.4-16.0) gm/dL Hct 30.1 L (34.0-46.0) % MCHC 29.9 L (31.0-37.0) g/dL RDW 18.0 H (11.5-15.5) % Lymphocytes # 0.6 L (1.0-4.8) k/uL ABG pH 7.33 L (7.35-7.45) ABG pCO2 54 H (35-45) mmHg ABG pO2 (83-108) mmHg ABG HCO3 28 H (21-25) mmol/L ABG Total CO2 30 H (19-24) mmol/L ABG O2 Saturation (94-97) % Sodium (137-145) mmol/L Chloride (98-107) mmol/L BUN (7-17) mg/dL Creatinine (0.52-1.04) mg/dL Glucose (74-99) mg/dL POC Glucose (mg/dL) 311 H (75-99) mg/dL Calcium (8.4-10.2) mg/dL Microbiology - Last 24 Hours (Table) 08/02/19 00:45 Blood Culture - Preliminary Blood No Growth after 24 hours 08/01/19 21:28 Blood Culture - Preliminary Blood No Growth after 24 hours 08/02/19 10:39 Urine Culture - Preliminary Urine,Voided 08/01/19 09:15 Gram Stain - Preliminary Peritoneal Fluid Body Fluid Culture - Preliminary Assessment and Plan Plan: Assessment: 1. End-stage renal disease maintained on peritoneal dialysis. 2. CAPD associated peritonitis with fluid culture positive for strep epidermidis and Proteus mirabilis dated 07/27/2019. Most recent cell count 10. It was 2765 initially. 3. Chronic kidney disease mineral bone disease maintained on PhosLo and calcitriol. 4. Anemia of chronic kidney disease maintained on Aranesp. 5. Diabetes mellitus. 6. Altered mental status. Brain CT revealed a right parietal ischemic infarct same from prior CT. Brain MRI negative. Neurology consultation pending. Plan: Maintain current PD echanges - now on 1.5% solution due to hypotension. She received first dose of intraperitoneal vancomycin on July 26. Second dose given July 31. Continue with Fortaz 1 g daily. This was also started on July 26. Maintain lactulose as needed for constipation. Monitor vancomycin level. Dose to be adjusted for renal function.
[2019-08-03 11:16] LABS: Glucose,Whole Blood 273 mg/dL (75-99)
--- NOTE | 2019-08-03 14:29 | P.PN ---
Subjective Progress Note Date: 08/03/19 This is a 63-year-old. Patient will go chest for today intensive care unit because of an altered mental status. This patient has an incisional disease and she is undergoing peritoneal dialysis. The patient also has peripheral vascular disease, below-knee amputation right lower extremity and the patient has a chronic left heel wound for which she goes to the wound center. She also is diabetic. The patient was hospitalized few days back and yesterday she was found to be quite obtunded and lethargic and encephalopathic. Neurology team has been on the case. However, around midnight, the patient became more unresponsive and a code stroke was called and the patient was not found to be a candidate for TPA based on on-call neurologist. CAT scan of the head showed no acute abnormalities. The patient had a blood gas that showed a pH of 7.33 with a pCO2 of 55 and CO2 narcosis/encephalopathy related to CO2 retention was suspected and the patient got transferred to the intensive care unit where she was given BiPAP overnight. Chest x-ray showed no acute abnormalities. No reported aspiration. The patient was already receiving intraperitoneal cefepime treatment 1 g every 24 hours and the patient was also receiving IV Zosyn and vancomycin as broad-spectrum antibiotic coverage. This morning, the patient seems to quite appropriate. She is awake and alert. She is currently on 6 L of oxygen by nasal cannula and her pulse ox is around 99-100%. She denies having any chest pain. No cough sputum production chest tightness or wheezing. She denies having any previous history of obstructive sleep apnea. She is obese with a BMI of 34.1. She is undergoing peritoneal dialysis and the dialysate has been switched to 1.5 solution 4 times a day to allow her blood pressure to stabilize. She is not having any hemodynamic changes of hypotension for now. Note that the patient's peritoneal fluid was sent again for cultures and results are still pending for now. The earlier cultures from 07/27/2019 was positive for staph epidermidis and Proteus mirabilis. Her blood work and electrodes are all within normal limits. Random vancomycin level is at 37.9 and the vancomycin is currently on hold. No fever. No focal neurological deficit. She is able to move all 4 extremities without any limitation for now. On 08/03/2019 and seeing the patient for a follow-up. The patient is awake and alert. She is having some episodic hallucinations. She did not use the BiPAP overnight. The patient had a follow-up blood gases today which still showing a component of respiratory acidosis with a pH of 7.33 with a pCO2 of 54 and pO2 of 84. The white cell count is at 7.1. Hemoglobin is at 9.0. The patient continues to undergo peritoneal dialysis with a 1.5 solution and the patient's creatinine is at 11.2 with a BMI of 36. No hypotension. No hypoglycemia. No fever or chills. No new cultures and antibiotic coverage essentially the same. The random vancomycin level is still elevated at 26. The patient is receiving intraperitoneal Fortaz in addition to IV Zosyn. No focal neurological deficits. No seizure activity has been noted. The patient is currently on 2 L of oxygen by nasal cannula with a pleasant 98%. Normotensive. She is afebrile. The MRI of the brain was done and showed no acute abnormalities. There is scattered high signal lesion in the deep white matter of the cerebral hemispheres consistent with possibly either demyelination or migraines or small vessel i schemia. Objective - Vital Signs Vital signs: Vital Signs Temp 98.5 F 08/03/19 08:00 Pulse 58 L 08/03/19 09:00 Resp 11 L 08/03/19 09:00 BP 110/50 08/03/19 09:00 Pulse Ox 98 08/03/19 09:00 Intake & Output 08/02/19 08/03/19 08/03/19 18:59 06:59 18:59 Intake Total 120 210 30 Output Total 0 0 Balance 120 210 30 Weight 102.7 kg Intake: IV 120 210 30 0.9 Normal Saline 120 110 30 Piperacillin-Tazobactam 3 100 .375 gm In Sodium Chloride 0.9% 100 ml @ 25 mls/hr IVPB Q12H [facility] Rx# :[id number] Output: Urine 0 0 Other: # Voids 0 0 # Bowel Movements 0 0 - Exam Gen. appearance, comfortable wheeze nonacute distress communicating and answering questions appropriately. She is currently comfortable on 2 L of oxygen by nasal cannula and there is no signs of any respiratory distress. Head exam was generally normal. There was no scleral icterus or corneal arcus. Mucous membranes were moist. Neck was supple and without jugular venous distension, thyromegaly, or carotid bruits. Carotids were easily palpable bilaterally. There was no adenopathy. Lungs sounds are diminished bilaterally especially in lung bases more so on the right. No wheezes. No rhonchi. Cardiac exam revealed the PMI to be normally situated and sized. The rhythm was regular and no extrasystoles were noted during several minutes of auscultation. The first and second heart sounds were normal and physiologic splitting of the second heart sound was noted. There were no murmurs, rubs, clicks, or gallops. Abdomen soft and nontender and the patient is a peritoneal catheter in place. There is some ascites and fluid within the peritoneal cavity related to PD. No organomegaly. No direct tenderness. No rebound tenderness. No guarding. Extremities revealed a bili of dictation on the right. There is a large stage IV he'll also on the left. Pulses in lower extremities are quite diminished. There is trace edema. There is no cyanosis or clubbing. Neurologically alert and awake and there is no focal neurological deficits. - Labs CBC & Chem 7: 08/03/19 03:49 08/03/19 03:49 Labs: Abnormal Lab Results - Last 24 Hours (Table) 08/02/19 08/02/19 08/02/19 Range/Units 15:39 17:23 22:02 RBC (3.80-5.40) m/uL Hgb (11.4-16.0) gm/dL Hct (34.0-46.0) % MCHC (31.0-37.0) g/dL RDW (11.5-15.5) % Lymphocytes # (1.0-4.8) k/uL ABG pH 7.33 L (7.35-7.45) ABG pCO2 53 H (35-45) mmHg ABG pO2 135 H (83-108) mmHg ABG HCO3 28 H (21-25) mmol/L ABG Total CO2 30 H (19-24) mmol/L ABG O2 Saturation 99.2 H (94-97) % Sodium (137-145) mmol/L Chloride (98-107) mmol/L BUN (7-17) mg/dL Creatinine (0.52-1.04) mg/dL Glucose (74-99) mg/dL POC Glucose (mg/dL) 225 H 53 L (75-99) mg/dL Calcium (8.4-10.2) mg/dL 04/04/20 04/04/20 04/04/20 Range/Units 22:04 22:18 22:37 RBC (3.80-5.40) m/uL Hgb (11.4-16.0) gm/dL Hct (34.0-46.0) % MCHC (31.0-37.0) g/dL RDW (11.5-15.5) % Lymphocytes # (1.0-4.8) k/uL ABG pH (7.35-7.45) ABG pCO2 (35-45) mmHg ABG pO2 (83-108) mmHg ABG HCO3 (21-25) mmol/L ABG Total CO2 (19-24) mmol/L ABG O2 Saturation (94-97) % Sodium (137-145) mmol/L Chloride (98-107) mmol/L BUN (7-17) mg/dL Creatinine (0.52-1.04) mg/dL Glucose (74-99) mg/dL POC Glucose (mg/dL) 57 L 52 L 62 L (75-99) mg/dL Calcium (8.4-10.2) mg/dL 08/03/19 08/03/19 08/03/19 Range/Units 02:37 03:49 03:49 RBC 3.07 L (3.80-5.40) m/uL Hgb 9.0 L (11.4-16.0) gm/dL Hct 30.1 L (34.0-46.0) % MCHC 29.9 L (31.0-37.0) g/dL RDW 18.0 H (11.5-15.5) % Lymphocytes # 0.6 L (1.0-4.8) k/uL ABG pH (7.35-7.45) ABG pCO2 (35-45) mmHg ABG pO2 (83-108) mmHg ABG HCO3 (21-25) mmol/L ABG Total CO2 (19-24) mmol/L ABG O2 Saturation (94-97) % Sodium 131 L (137-145) mmol/L Chloride 93 L (98-107) mmol/L BUN 36 H (7-17) mg/dL Creatinine 11.23 H* (0.52-1.04) mg/dL Glucose 269 H (74-99) mg/dL POC Glucose (mg/dL) 239 H (75-99) mg/dL Calcium 7.5 L (8.4-10.2) mg/dL 08/03/19 08/03/19 08/03/19 Range/Units 06:35 09:15 11:15 RBC (3.80-5.40) m/uL Hgb (11.4-16.0) gm/dL Hct (34.0-46.0) % MCHC (31.0-37.0) g/dL RDW (11.5-15.5) % Lymphocytes # (1.0-4.8) k/uL ABG pH 7.33 L (7.35-7.45) ABG pCO2 54 H (35-45) mmHg ABG pO2 (83-108) mmHg ABG HCO3 28 H (21-25) mmol/L ABG Total CO2 30 H (19-24) mmol/L ABG O2 Saturation (94-97) % Sodium (137-145) mmol/L Chloride (98-107) mmol/L BUN (7-17) mg/dL Creatinine (0.52-1.04) mg/dL Glucose (74-99) mg/dL POC Glucose (mg/dL) 311 H 273 H (75-99) mg/dL Calcium (8.4-10.2) mg/dL Microbiology - Last 24 Hours (Table) 08/02/19 10:39 Urine Culture - Preliminary Urine,Voided Yeast species 08/01/19 09:15 Gram Stain - Preliminary Peritoneal Fluid Body Fluid Culture - Preliminary 08/02/19 00:45 Blood Culture - Preliminary Blood No Growth after 24 hours 08/01/19 21:28 Blood Culture - Preliminary Blood No Growth after 24 hours Assessment and Plan Plan: 1 altered mental status, exact cause is not clear. CAT scan of the brain was negative. No signs of any CVA. Consider TIA. Consider metabolic encephalo vickie. Consider seizure activity. Consider hypercapnic respiratory failure creating some degree of CO2 narcosis. The blood gas was abnormal. The patient was treated with BiPAP. The patient improved he had the patient is back to her normal baseline status. Based on the blood gas, the patient is a component of acute respiratory acidosis and the patient continues to be requiring oxygen between 2- per minute nasal cannula. Chest x-ray shows no acute abnormalities On today's evaluation of 08/03/2019, the patient on 2 L of oxygen by nasal cannula. The oxygenation is within normal limits. The repeat blood gases showed a mild component of respiratory acidosis. No signs of infection/sepsis. No signs of any hemodynamic instability or hypoglycemia. Mental status is improved. The MRI of the brain showed no acute abnormalities and the results were reviewed. 2 hypotension and the patient has been switched to a 1.5 dialysate 3 ESRD disease maintained on peritoneal dialysis (PD) 4 PD with a possibility of a gram-negative peritonitis with Proteus mirabilis and addition to staph epidermidis and the patient is currently on intraperitoneal Fortaz 5 diabetes mellitus 6 anemia of chronic disease 7 left heel ulcer, stage IV does not seem to be infected this point in time 8 below-knee amputation of the right lower extremity 9 obesity 10 history of hypertension 11 hypothyroidism 12 diabetic peripheral neuropathy Plan MRI of the brain showed no acute abnormalities. The patient continues to have some degree of hallucination for that reason I'm going to discontinue the [place] pro as the patient clearly states that his hallucination started after she was started on the stroke. Repeated blood gas shows a mild component of respiratory acidosis and this is to be followed. BiPAP machine as the bedside. Continue same antibiotic coverage hold vancomycin for now as the vancomycin levels are quite elevated. Continue the peritoneal Fortaz and IV Zosyn Drop the dialysate to 1.5, 4 times a day and monitor the blood pressure Wound care to the left heel we'll continue to follow the patient ICU for another 24 hours, possible discharge later stage the medical surgical floor
[2019-08-03] MEDS: ACETAMINOPHEN TAB 325 MG TAB PO PRN (15:24)
--- NOTE | 2019-08-03 16:15 | P.CN ---
Psychiatric Consult - . Consult date: 08/03/19 Consult:: 08/03/19 16:05 IDENTIFYING DATA: 63-year-old single female patient HPI: Patient admitted medically, currently in the ICU with altered mentation. Patient was admitted with toxic/metabolic encephalopathy. Psychiatry consultation regarding concerns of hallucinations. Per medical record there is concern regarding the patient having missed a dialysis treatment. There is also noting in the chart regarding the patient also resenting with hearing loss and difficulty staying awake. She had recently been discharged on July 29 for treatment for peritonitis. Per chart history the hallucinations have been seeing and hearing things. Patient reports that she was having hallucinations she thinks from medication Lexapro. She does talk about having had auditory and visual hallucinations. Lexapro has been discontinued. She does relate that she is feeling better physically today. She says she still does have some ringing in her ear. She does feel like she is more awake today. PAST PSYCHIATRIC HISTORY: She does admit to some history of depression and anxiety, was recently on Lexapro which as been discontinued. PMH: End-stage renal disease on peritoneal dialysis, diabetes mellitus type 2, peripheral neuropathy, peripheral vascular disease, gastroesophageal reflux disease, hypertension, dyslipidemia, hypothyroidism ALLERGIES: Gabapentin, lisinopril MEDICATIONS: Tylenol when necessary, Rocaltrol, PhosLo, ceftazidime, Plavix, Aranesp, NovoLog, Levemir, Cephulac, Synthroid, melatonin, Lopressor, Bactroban, Narcan when necessary, Protonix, piperacillin,k-dur CHEMICAL DEPENDENCY HISTORY: Patient denies FAMILY PSYCHIATRIC HISTORY: Denies FAMILY CHEMICAL DEPENDENCY HISTORY: None known at this time SOCIAL HISTORY: Currently lives by herself in a flat. She has never been . Has one child. MENTAL STATUS EXAM: She is mostly alert during the session, closes her eyes a few times but easily reawakens. She describes her mood as "okay." Her speech is fluent, not rapid or pressured. She does not show any agitation. She is oriented to place and month and year, date she says the third. She denies any thoughts of harm to self or others. She denies auditory or visual hallucinations. Then towards the end of the session she does state that she hears something in her left ear with the hearing loss. IMPRESSIONS: Likely delirium with accompanying symptoms of some visual and auditory hallucinations. Auditory hallucinations may also be related to hearing loss. Also rule out component of medication side effect related. Lexapro has been discontinued. PLAN: Continue to monitor for any auditory or visual hallucinations which today seemed to be improved. She denies any visual hallucinations today. Continue to treat possible causes of delirium. Lexapro will continue to be discontinued at this time. Hallucination symptoms seem to be improved today. I would avoid any medication treatment of hallucinations at this time as the symptoms are improved and do not seem to be significantly bothering patient currently. I do not see any criteria for inpatient psychiatric hospitalization at this time.
[2019-08-03 17:06] LABS: Glucose,Whole Blood 207 mg/dL (75-99)
[2019-08-03 20:34] LABS: Glucose,Whole Blood 145 mg/dL (75-99)
--- NOTE | 2019-08-03 20:44 | P.PN ---
Subjective Progress Note Date: 08/03/19 Principal diagnosis: hearing loss Patient is a 63-year-old -[place] female with a past medical history of end-stage renal disease on peritoneal dialysis, diabetes mellitus type 2 on insulin pump with peripheral neuropathy and peripheral vascular disease, GERD, hypertension, dyslipidemia, and hypothyroidism who presented to the ER due to hearing loss and hallucinations. In the ER she underwent an extensive evaluation. Her initial vital signs were within normal limits. Her anemia was at baseline, creatinine above baseline at 11.53, troponin mildly elevated at 0.136. EKG normal sinus rhythm without any significant ST-T wave changes. CT head shows stable white matter changes in the right parietal occipital lobe. Chest x-ray showed mild streak atelectasis of the left lung base. Due to her elevated troponin she received a dose of aspirin in the emergency department. She was complaining of significant hearing loss, hallucinations, and difficulty staying awake. She was also noted to have alvarez to her upper shoulders that had become unroofed. Arrangements were made for observation.By the time she was seen in the emergency department she was awake alert talking and concerned about missing PD and hearing loss. On the morning of 08/01/2019 she was alert awake and talking. Her insulin pump had been removed by nursing and she was worried about it being removed. On the evening of 08/01/2019 A team called due to confusion and letheragy. ABD showed slight hypercapnia and she was started on Bipap and had improvement. Hypercarbia improved, patient reporting hallucinations and decreased hearing. Patient seen and examined at bedside. Decreased blood glucose overnight secondary to not eating. Still reporting some hallucinations. Having a neck ache. No nausea, vomiting, or diarrhea. Objective - Vital Signs Vital signs: Vital Signs Temp 97.8 F 08/03/19 20:00 Pulse 61 08/03/19 20:00 Resp 18 08/03/19 20:00 BP 112/56 08/03/19 20:00 Pulse Ox 99 08/03/19 20:00 Intake & Output 08/03/19 08/03/19 08/04/19 06:59 18:59 06:59 Intake Total 210 220 20 Output Total 0 0 Balance 210 220 20 Weight 102.7 kg Intake: IV 210 220 20 0.9 Normal Saline 110 120 20 Piperacillin-Tazobactam 3 100 100 .375 gm In Sodium Chloride 0.9% 100 ml @ 25 mls/hr IVPB Q12H [facility] Rx# :[id number] Output: Urine 0 0 Other: Voiding Method CAPD # Voids 0 0 # Bowel Movements 1 - Exam General: non toxic , no distress, appears at stated age Derm: Dressing in place over left heel, no drainage, warm, dry Head: atraumatic, normocephalic, symmetric, [place] Eyes: EOMI, no lid lag, anicteric sclera Mouth: no lip lesion, mucus membranes moist Cardiovascular: S1S2 reg, no murmur, right BKA, 2+ radial pulses bilaterally Lungs: decrease bs bilateral bilateral, no rhonchi, no rales , no accessory muscle use Abdominal: soft, nontender to palpation, no guarding, no appreciable organomegaly Ext: no gross muscle atrophy, no edema, no contractures Neuro: CN II-XI grossly intact, no focal neuro deficits Psych: Alert, oriented, hallucinations. - Labs CBC & Chem 7: 08/03/19 03:49 08/03/19 03:49 Labs: Abnormal Lab Results - Last 24 Hours (Table) 08/02/19 08/02/19 08/02/19 Range/Units 22:02 22:04 22:18 RBC (3.80-5.40) m/uL Hgb (11.4-16.0) gm/dL Hct (34.0-46.0) % MCHC (31.0-37.0) g/dL RDW (11.5-15.5) % Lymphocytes # (1.0-4.8) k/uL ABG pH (7.35-7.45) ABG pCO2 (35-45) mmHg ABG HCO3 (21-25) mmol/L ABG Total CO2 (19-24) mmol/L Sodium (137-145) mmol/L Chloride (98-107) mmol/L BUN (7-17) mg/dL Creatinine (0.52-1.04) mg/dL Glucose (74-99) mg/dL POC Glucose (mg/dL) 53 L 57 L 52 L (75-99) mg/dL Calcium (8.4-10.2) mg/dL 08/02/19 08/03/19 08/03/19 Range/Units 22:37 02:37 03:49 RBC (3.80-5.40) m/uL Hgb (11.4-16.0) gm/dL Hct (34.0-46.0) % MCHC (31.0-37.0) g/dL RDW (11.5-15.5) % Lymphocytes # (1.0-4.8) k/uL ABG pH (7.35-7.45) ABG pCO2 (35-45) mmHg ABG HCO3 (21-25) mmol/L ABG Total CO2 (19-24) mmol/L Sodium 131 L (137-145) mmol/L Chloride 93 L (98-107) mmol/L BUN 36 H (7-17) mg/dL Creatinine 11.23 H* (0.52-1.04) mg/dL Glucose 269 H (74-99) mg/dL POC Glucose (mg/dL) 62 L 239 H (75-99) mg/dL Calcium 7.5 L (8.4-10.2) mg/dL 08/03/19 08/03/19 08/03/19 Range/Units 03:49 06:35 09:15 RBC 3.07 L (3.80-5.40) m/uL Hgb 9.0 L (11.4-16.0) gm/dL Hct 30.1 L (34.0-46.0) % MCHC 29.9 L (31.0-37.0) g/dL RDW 18.0 H (11.5-15.5) % Lymphocytes # 0.6 L (1.0-4.8) k/uL ABG pH 7.33 L (7.35-7.45) ABG pCO2 54 H (35-45) mmHg ABG HCO3 28 H (21-25) mmol/L ABG Total CO2 30 H (19-24) mmol/L Sodium (137-145) mmol/L Chloride (98-107) mmol/L BUN (7-17) mg/dL Creatinine (0.52-1.04) mg/dL Glucose (74-99) mg/dL POC Glucose (mg/dL) 311 H (75-99) mg/dL Calcium (8.4-10.2) mg/dL 08/03/19 08/03/19 08/03/19 Range/Units 11:15 17:04 20:32 RBC (3.80-5.40) m/uL Hgb (11.4-16.0) gm/dL Hct (34.0-46.0) % MCHC (31.0-37.0) g/dL RDW (11.5-15.5) % Lymphocytes # (1.0-4.8) k/uL ABG pH (7.35-7.45) ABG pCO2 (35-45) mmHg ABG HCO3 (21-25) mmol/L ABG Total CO2 (19-24) mmol/L Sodium (137-145) mmol/L Chloride (98-107) mmol/L BUN (7-17) mg/dL Creatinine (0.52-1.04) mg/dL Glucose (74-99) mg/dL POC Glucose (mg/dL) 273 H 207 H 145 H (75-99) mg/dL Calcium (8.4-10.2) mg/dL Microbiology - Last 24 Hours (Table) 08/02/19 10:39 Urine Culture - Preliminary Urine,Voided Yeast species 08/01/19 09:15 Gram Stain - Preliminary Peritoneal Fluid Body Fluid Culture - Preliminary 08/02/19 00:45 Blood Culture - Preliminary Blood No Growth after 24 hours 08/01/19 21:28 Blood Culture - Preliminary Blood No Growth after 24 hours Assessment and Plan Assessment: Acute encephalopathy, hearing loss, and visual hallucinations - wakefulness improved with CPAP - Neuro consult when available on 08/03 - psych consult - monitor closely - MRI with scattered high signal in the deep white matter- suspect due to small vessel disease - CT head negative - ? due to vanco toxicity vs meniers vs other -Supportive care - stop lexapro, lyrica stopped on admission Mildly elevated troponin -Serial troponins flat, not consistent with CAD -Aspirin -Lopressor, statin -cardiology recs appreciated -echocardiogram with preserved EF End-stage renal disease on peritoneal dialysis - PD per nephro Recent peritonitis with staph epi and proteus -frotaz with PD, WBC in fluid 10 Constipation -Lactulose Diabetes mellitus type 2 insulin requiring -Sliding-scale insulin, levemir qAM -A1c pending - insulin pump removed per patient hx of hypoglycemia with long acting insulin Stage II alvarez upper shoulder and back - wound care - bacitracin cream every 8 hours Left heel ulcer, stage IV,does not appear infected -Offload -Continue dressing changes Hyponatremia - likely due to increased fluid balalnce - PD - nephro recs Chronic: Dyslipidemia Hypertension GERD Hypothyroidism Toxic metabolic encephalopathy, improved DVT prophylaxis: Heparin Discussed with: Patient, nursing, Dr. Daniel Anticipated discharge date:2-[address]: Home A total of 25 minutes was spent on the care of this complex patient more than 50% of the time was spent in counseling and care coordination.
[2019-08-03] MEDS: CEFTAZIDIME INTRAPERIT SCH (23:02)
[2019-08-04] MEDS: PIPERACILLIN-TAZOBACTAM 3.375 GM in SODIUM CHLORIDE 0.9% 100 ML IVPB SCH (01:00)
[2019-08-04] MEDS: DIALYSIS DEX INTRAPERIT SCH ×4 (04:15→23:54)
[2019-08-04 04:40] LABS: Glucose,Whole Blood 158 mg/dL (75-99)
[2019-08-04 04:57] LABS: Anisocytosis Slight; Basophils % (A) 1 %; Eosinophils # (A) 0.3 k/uL (0-0.7); Eosinophils % (A) 4 %; HCT 30.4 % (34.0-46.0); HGB 9.2 gm/dL (11.4-16.0); Hypochromasia Marked; Lymphocytes # (A) 0.7 k/uL (1.0-4.8); Lymphocytes % (A) 10 %; MCH 29.5 pg (25.0-35.0); MCHC 30.3 g/dL (31.0-37.0); MCV 97.5 fL (80.0-100.0); Macrocytosis Slight; Monocytes # (A) 0.3 k/uL (0-1.0); Monocytes % (A) 5 %; Neutrophils # (A) 4.8 k/uL (1.3-7.7); Neutrophils % (A) 76 %; Platelet Count 325 k/uL (150-450); RBC 3.12 m/uL (3.80-5.40); RDW 17.8 % (11.5-15.5); WBC 6.3 k/uL (3.8-10.6)
[2019-08-04] MEDS: ACETAMINOPHEN TAB 325 MG TAB PO PRN (05:00)
[2019-08-04 05:14] LABS: Calcium 7.6 mg/dL (8.4-10.2); Potassium 3.9 mmol/L (3.5-5.1)
[2019-08-04 05:19] LABS: Vancomycin,Random 24.1 ug/mL
[2019-08-04 06:41] LABS: Glucose,Whole Blood 189 mg/dL (75-99)
[2019-08-04] MEDS: LEVOTHYROXINE 75 MCG TAB PO SCH (07:07)
[2019-08-04] MEDS: CALCIUM ACETATE 667 MG TAB PO SCH ×3 (07:07→21:22)
[2019-08-04] MEDS: PANTOPRAZOLE 40 MG TABLET PO SCH (07:07)
[2019-08-04] MEDS: INSULIN ASPART (NovoLOG) 100 UNIT/ML VIAL SQ SCH ×4 (07:08→21:35)
[2019-08-04] MEDS: INSULIN DETEMIR (LEVEMIR) 100 UNIT/ML SYR SQ SCH (07:08)
[2019-08-04] MEDS: METOPROLOL TARTRATE 25 MG TAB PO SCH ×2 (09:10→21:35)
[2019-08-04] MEDS: MUPIROCIN 2% OINT 22 GM TUBE TOPICAL SCH ×3 (09:11→23:54)
[2019-08-04] MEDS: CLOPIDOGREL 75 MG TAB PO SCH (09:14)
[2019-08-04] MEDS: POTASSIUM CHLORIDE ER 10 MEQ TAB.ER.PRT PO SCH (09:14)
[2019-08-04] MEDS: CALCITRIOL 0.25 MCG CAP PO SCH (09:15)
[2019-08-04] MEDS: DARBEPOETIN ALFA 40 MCG/0.4 ML SYRINGE SQ SCH (09:33)
[2019-08-04 11:04] LABS: Glucose,Whole Blood 192 mg/dL (75-99)
--- NOTE | 2019-08-04 12:55 | P.PN ---
Subjective Progress Note Date: 08/04/19 Principal diagnosis: Hearing loss Patient is not having any more hallucinations over the past 24 hours. She is still complaining about ringing and hearing loss in the left ear. No chest pain or shortness of breath. Objective - Vital Signs Vital signs: Vital Signs Temp 98.3 F 08/04/19 11:27 Pulse 62 08/04/19 11:27 Resp 12 08/04/19 12:00 BP 119/55 08/04/19 11:27 Pulse Ox 100 08/04/19 11:27 Intake & Output 08/03/19 08/04/19 08/04/19 18:59 06:59 18:59 Intake Total 220 120 80 Output Total 0 0 0 Balance 220 120 80 Weight 102.7 kg Intake: IV 220 120 30 0.9 Normal Saline 120 120 30 Piperacillin-Tazobactam 3 100 .375 gm In Sodium Chloride 0.9% 100 ml @ 25 mls/hr IVPB Q12H [facility] Rx# :[id number] Oral 50 Output: Urine 0 0 0 Other: Voiding Method CAPD CAPD # Voids 0 0 0 # Bowel Movements 1 1 - Exam Constitutional: No acute distress, conversant, pleasant Eyes:Anicteric sclerae, moist conjunctiva, no lid-lag, PERRLA, ENMT: Oropharynx clear, no erythema, exudates Neck: Supple, FROM, no masses, or JVD, No carotid bruits, No thyromegaly Lungs: Clear to auscultation, Clear to percussion, Normal respiratory effort, no accessory muscle use Cardiovascular: Heart regular in rate and rhythm, No murmurs, gallops, or rubs, No peripheral edema Abdominal: Soft, Nontender, no guarding, rebound or rigidity, Normoactive bowel sounds, No hepatomegaly, No splenomegaly, No palpable mass Skin: Normal temperature, tone, texture, turgor, no induration, No subcutaneous nodules, No rash, lesions, No ulcers Extremities: No digital cyanosis, No clubbing, Pedal pulses intact and symmetrical, Radial pulses intact and symmetrical, No calf tenderness Psychiatric: Alert and oriented to person, place and time, appropriate affect, intact judgement Neuro: Muscles Strength 5/5 in all 4 extremities, Sensation to light touch grossly present throughout, Cranial nerves II-XII grossly intact, no focal sensory deficits - Labs CBC & Chem 7: 08/04/19 03:56 08/04/19 03:56 Labs: Abnormal Lab Results - Last 24 Hours (Table) 08/03/19 08/03/19 08/04/19 Range/Units 17:04 20:32 03:56 RBC 3.12 L (3.80-5.40) m/uL Hgb 9.2 L (11.4-16.0) gm/dL Hct 30.4 L (34.0-46.0) % MCHC 30.3 L (31.0-37.0) g/dL RDW 17.8 H (11.5-15.5) % Lymphocytes # 0.7 L (1.0-4.8) k/uL Sodium (137-145) mmol/L Chloride (98-107) mmol/L BUN (7-17) mg/dL Creatinine (0.52-1.04) mg/dL Glucose (74-99) mg/dL POC Glucose (mg/dL) 207 H 145 H (75-99) mg/dL Calcium (8.4-10.2) mg/dL 08/04/19 08/04/19 08/04/19 Range/Units 03:56 04:37 06:40 RBC (3.80-5.40) m/uL Hgb (11.4-16.0) gm/dL Hct (34.0-46.0) % MCHC (31.0-37.0) g/dL RDW (11.5-15.5) % Lymphocytes # (1.0-4.8) k/uL Sodium 131 L (137-145) mmol/L Chloride 95 L (98-107) mmol/L BUN 36 H (7-17) mg/dL Creatinine 10.50 H* (0.52-1.04) mg/dL Glucose 140 H (74-99) mg/dL POC Glucose (mg/dL) 158 H 189 H (75-99) mg/dL Calcium 7.6 L (8.4-10.2) mg/dL 08/04/19 Range/Units 11:03 RBC (3.80-5.40) m/uL Hgb (11.4-16.0) gm/dL Hct (34.0-46.0) % MCHC (31.0-37.0) g/dL RDW (11.5-15.5) % Lymphocytes # (1.0-4.8) k/uL Sodium (137-145) mmol/L Chloride (98-107) mmol/L BUN (7-17) mg/dL Creatinine (0.52-1.04) mg/dL Glucose (74-99) mg/dL POC Glucose (mg/dL) 192 H (75-99) mg/dL Calcium (8.4-10.2) mg/dL Microbiology - Last 24 Hours (Table) 08/02/19 00:45 Blood Culture - Preliminary Blood No Growth after 48 hours 08/01/19 21:28 Blood Culture - Preliminary Blood No Growth after 48 hours 08/02/19 10:39 Urine Culture - Preliminary Urine,Voided Yeast species 08/01/19 09:15 Gram Stain - Preliminary Peritoneal Fluid Body Fluid Culture - Preliminary Assessment and Plan Plan: Acute toxic encephalopathy, hearing loss, and visual hallucinations - Resolved - Awaiting neuro consult, seen by psychiatry already, appreciate input - MRI with scattered high signal in the deep white matter- suspect due to small vessel disease - Patient asking for her ear to be evaluated, I told her that she needs to follow-up with ENT as an outpatient as this is not an urgent matter - ? due to vanco toxicity vs meniers vs other - Lexapro and lyrica stopped on admission Mildly elevated troponin -Serial troponins flat, not consistent with CAD -Aspirin -Lopressor, statin -cardiology recs appreciated -echocardiogram with preserved EF End-stage renal disease on peritoneal dialysis - PD per nephro Recent peritonitis with staph epi and proteus -frotaz with PD, WBC in fluid 10 -Text message sent to side panel hanger to inquire if patient still needs IV Zosyn Constipation -Lactulose Diabetes mellitus type 2 insulin requiring -Sliding-scale insulin, levemir qAM -A1c pending - insulin pump removed per patient hx of hypoglycemia with long acting insulin Stage II alvarez upper shoulder and back - wound care - bacitracin cream every 8 hours Left heel ulcer, stage IV,does not appear infected -Offload -Continue dressing changes Hyponatremia - likely chronic Chronic: Dyslipidemia Hypertension GERD Hypothyroidism DVT prophylaxis: Heparin Discussed with: Patient, nursing, Anticipated discharge date: 1-[address]: Home A total of 25 minutes was spent on the care of this complex patient more than 50% of the time was spent in counseling and care coordination.
--- NOTE | 2019-08-04 13:50 | PN ---
PROGRESS NOTE Patient is seen for followup for end-stage renal disease. She is currently maintained on peritoneal dialysis. Patient is complaining of increased swelling in her upper and lower extremities. She is not complaining of any shortness of breath. On examination, blood pressure was 119/55, heart rate 76 per minute, she is afebrile. Examination of the heart S1, S2. Examination of the lungs, decreased breath sounds at bases. Abdomen is soft, nontender, obese. Exam of the lower extremities shows edema, trace bilaterally. CONSOLE ATTENDANT exam grossly intact. Patient has right BKA. Left lower extremity is currently wrapped. LABS: Show hemoglobin 9.2 g/dL, sodium 131, potassium 3.9, BUN 36, creatinine 10.5. ASSESSMENT: 1. End-stage renal disease, maintained on peritoneal dialysis. 2. Mild volume overload. Change PD fluid to 2.5% solution alternating with 1.5% solutions. 3. Recent CAPD peritonitis with fluid culture positive for strep epidermidis and Proteus mirabilis on 07/27/2019. Maintained on Fortaz through the PD fluid. We can discontinue the Zosyn. 4. CKD mineral bone disorder, maintained on PhosLo and calcitriol. 5. Altered mentation, currently improved. CT of the brain revealed right parietal ischemic infarct which was unchanged from prior CT. PLAN: Change PD fluids to 2.5% solution alternating with 1.5% solution. We can use midodrine if patient continues to be hypotensive and we can discontinue the Zosyn. Continue with the Fortaz for now. MMODL / IJN: [id number] /
--- NOTE | 2019-08-04 13:51 | P.PN ---
Subjective Progress Note Date: 08/04/19 Principal diagnosis: Acute metabolic encephalopathy, and acute mental status change. This is a 63-year-old. Patient will go chest for today intensive care unit because of an altered mental status. This patient has an incisional disease and she is undergoing peritoneal dialysis. The patient also has peripheral vascular disease, below-knee amputation right lower extremity and the patient has a chronic left heel wound for which she goes to the wound center. She also is diabetic. The patient was hospitalized few days back and yesterday she was found to be quite obtunded and lethargic and encephalopathic. Neurology team has been on the case. However, around midnight, the patient became more unresponsive and a code stroke was called and the patient was not found to be a candidate for TPA based on on-call neurologist. CAT scan of the head showed no acute abnormalities. The patient had a blood gas that showed a pH of 7.33 with a pCO2 of 55 and CO2 narcosis/encephalopathy related to CO2 retention was suspected and the patient got transferred to the intensive care unit where she was given BiPAP overnight. Chest x-ray showed no acute abnormalities. No reported aspiration. The patient was already receiving intraperitoneal cefepime treatment 1 g every 24 hours and the patient was also receiving IV Zosyn and vancomycin as broad-spectrum antibiotic coverage. This morning, the patient seems to quite appropriate. She is awake and alert. She is currently on 6 L of oxygen by nasal cannula and her pulse ox is around 99-100%. She denies having any chest pain. No cough sputum production chest tightness or wheezing. She denies having any previous history of obstructive sleep apnea. She is obese with a BMI of 34.1. She is undergoing peritoneal dialysis and the dialysate has been switched to 1.5 solution 4 times a day to allow her blood pressure to stabilize. She is not having any hemodynamic changes of hypotension for now. Note that the patient's peritoneal fluid was sent again for cultures and results are still pending for now. The earlier cul tures from 07/27/2019 was positive for staph epidermidis and Proteus mirabilis. Her blood work and electrodes are all within normal limits. Random vancomycin level is at 37.9 and the vancomycin is currently on hold. No fever. No focal neurological deficit. She is able to move all 4 extremities without any limitation for now. On 08/03/2019 and seeing the patient for a follow-up. The patient is awake and alert. She is having some episodic hallucinations. She did not use the BiPAP overnight. The patient had a follow-up blood gases today which still showing a component of respiratory acidosis with a pH of 7.33 with a pCO2 of 54 and pO2 of 84. The white cell count is at 7.1. Hemoglobin is at 9.0. The patient continues to undergo peritoneal dialysis with a 1.5 solution and the patient's creatinine is at 11.2 with a BMI of 36. No hypotension. No hypoglycemia. No fever or chills. No new cultures and antibiotic coverage essentially the same. The random vancomycin level is still elevated at 26. The patient is receiving intraperitoneal Fortaz in addition to IV Zosyn. No focal neurological deficits. No seizure activity has been noted. The patient is currently on 2 L of oxygen by nasal cannula with a pleasant 98%. Normotensive. She is afebrile. The MRI of the brain was done and showed no acute abnormalities. There is scattered high signal lesion in the deep white matter of the cerebral hemispheres consistent with possibly either demyelination or migraines or small vessel ischemia. Reevaluated today on 08/04/19, patient is still in the intensive care unit, she is on 2 L nasal cannula. Chest x-ray showed basilar atelectasis. Remains on antibiotics in the form of Zosyn and intraperitoneal ceftazidime. Patient has been receiving peritoneal dialysis, sodium is a bit low today at 131, potassium is normal and is 36 creatinine is 10.5. CBC is relatively normal. ABG yesterday showed a pO2 of 84 pCO2 of 54 pH of 7.33. MRI of the brain showed no acute abnormality. Questioed chronic demyelination or small vessel ischemia. However the patient is relatively asymptomatic today. Denies any shortness of breath cough or wheezing today Objective - Vital Signs Vital signs: Vital Signs Temp 98.3 F 08/04/19 11:27 Pulse 62 08/04/19 11:27 Resp 12 08/04/19 12:00 BP 119/55 08/04/19 11:27 Pulse Ox 100 08/04/19 11:27 Intake & Output 08/03/19 08/04/19 08/04/19 18:59 06:59 18:59 Intake Total 220 120 80 Output Total 0 0 0 Balance 220 120 80 Weight 102.7 kg Intake: IV 220 120 30 0.9 Normal Saline 120 120 30 Piperacillin-Tazobactam 3 100 .375 gm In Sodium Chloride 0.9% 100 ml @ 25 mls/hr IVPB Q12H [facility] Rx# :[id number] Oral 50 Output: Urine 0 0 0 Other: Voiding Method CAPD CAPD # Voids 0 0 0 # Bowel Movements 1 1 - Exam Physical Exam: Revealed 63-year-old female in no distress. On 2 L nasal cannula. Head: Atraumatic, normocephalic. HEENT:[Neck is supple.] [No neck masses.] [No thyromegaly.] [No JVD.] PERRLA, EOMI, no icterus. Chest: [Symmetrical chest expansion. Diminished breath sounds at the bases no crackles or rhonchi or wheezes. Cardiac Exam: [Normal S1 and S2, no S3 gallop, no murmur.] Abdomen: [Soft, nontender, no megaly, no rebound, no guarding, normal bowel sounds.] Peritoneal catheter is noted in place, site is clean. Extremities: Right below-knee amputation is noted. And there is a large ulcer on the left ankle area, wrapped with sterile dressing. Neurological Exam: [No focal neurologic deficit.] Alert and oriented 3. Psychiatric: Normal mood, affect and normal mental status examination. Skin: Cellulitis of the left ankle area is noted. Otherwise unremarkable. - Labs CBC & Chem 7: 08/04/19 03:56 08/04/19 03:56 Labs: Abnormal Lab Results - Last 24 Hours (Table) 08/03/19 08/03/19 08/04/19 Range/Units 17:04 20:32 03:56 RBC 3.12 L (3.80-5.40) m/uL Hgb 9.2 L (11.4-16.0) gm/dL Hct 30.4 L (34.0-46.0) % MCHC 30.3 L (31.0-37.0) g/dL RDW 17.8 H (11.5-15.5) % Lymphocytes # 0.7 L (1.0-4.8) k/uL Sodium (137-145) mmol/L Chloride (98-107) mmol/L BUN (7-17) mg/dL Creatinine (0.52-1.04) mg/dL Glucose (74-99) mg/dL POC Glucose (mg/dL) 207 H 145 H (75-99) mg/dL Calcium (8.4-10.2) mg/dL 08/04/19 08/04/19 08/04/19 Range/Units 03:56 04:37 06:40 RBC (3.80-5.40) m/uL Hgb (11.4-16.0) gm/dL Hct (34.0-46.0) % MCHC (31.0-37.0) g/dL RDW (11.5-15.5) % Lymphocytes # (1.0-4.8) k/uL Sodium 131 L (137-145) mmol/L Chloride 95 L (98-107) mmol/L BUN 36 H (7-17) mg/dL Creatinine 10.50 H* (0.52-1.04) mg/dL Glucose 140 H (74-99) mg/dL POC Glucose (mg/dL) 158 H 189 H (75-99) mg/dL Calcium 7.6 L (8.4-10.2) mg/dL 08/04/19 Range/Units 11:03 RBC (3.80-5.40) m/uL Hgb (11.4-16.0) gm/dL Hct (34.0-46.0) % MCHC (31.0-37.0) g/dL RDW (11.5-15.5) % Lymphocytes # (1.0-4.8) k/uL Sodium (137-145) mmol/L Chloride (98-107) mmol/L BUN (7-17) mg/dL Creatinine (0.52-1.04) mg/dL Glucose (74-99) mg/dL POC Glucose (mg/dL) 192 H (75-99) mg/dL Calcium (8.4-10.2) mg/dL Microbiology - Last 24 Hours (Table) 08/01/19 09:15 Gram Stain - Preliminary Peritoneal Fluid Body Fluid Culture - Preliminary 08/02/19 00:45 Blood Culture - Preliminary Blood No Growth after 48 hours 08/01/19 21:28 Blood Culture - Preliminary Blood No Growth after 48 hours 08/02/19 10:39 Urine Culture - Preliminary Urine,Voided Yeast species Assessment and Plan Assessment: Impression: Acute mental status change, suspect acute metabolic encephalopathy, workup otherwise has been nondiagnostic. Acute hypercapnic respiratory failure requiring BiPAP on initial presentation, resolved and Pap presently patient is on nasal cannula. End-stage renal disease, on peritoneal dialysis Possible gram-negative peritonitis with Proteus mirabilis and staph epidermidis noted in the peritoneal fluid. This is based on cultures from 07/26. Repeat cultures have been negative History of hypertension Diabetic peripheral neuropathy (type 2 Diabetes with diabetic nephropathy and neuropathy Obesity. Recommendation: Continue antibiotics Continue peritoneal dialysis Discontinue Lexapro as recommended by Dr. Daniel. Continue wound care to left heel area Transfer out of the ICU to a regular medical floor. Keep a BiPAP at bedside if needed. We'll continue to follow. Time with Patient: Less than 30
[2019-08-04 16:53] LABS: Glucose,Whole Blood 214 mg/dL (75-99)
[2019-08-04] MEDS ORDERED: BUTALB/APAP/CAFF 50-325-40MG TAB PO PRN (19:19)
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
[2019-08-04 20:49] LABS: Glucose,Whole Blood 199 mg/dL (75-99)
--- NOTE | 2019-08-04 22:59 | US ---
EXAMINATION TYPE: US carotid duplex BILAT DATE OF EXAM: 08/04/2019 COMPARISON: MR, CT CLINICAL HISTORY: New onset headache, altered mental status. New onset headache, altered mental statu s. EXAM MEASUREMENTS: RIGHT: Peak Systolic Velocity (PSV) cm/sec ----- Right CCA: 81.9 ----- Right ICA: 149.0 ----- Right ECA: 72.1 ICA/CCA ratio: 1.8 RIGHT: End Diastole cm/sec ----- Right CCA: 20.8 ----- Right ICA: 24.8 ----- Right ECA: 14.9 LEFT: Peak Systolic Velocity (PSV) cm/sec ----- Left CCA: 99.7 ----- Left ICA: 137.8 ----- Left ECA: 69.8 ICA/CCA ratio: 1.4 LEFT: End Diastole cm/sec ----- Left CCA: 24.8 ----- Left ICA: 33.2 ----- Left ECA: 12.8 VERTEBRALS (direction of flow): Right Vertebral: Not visualized Left Vertebral: Antegrade Rhythm: Normal Oscar scale images show mild to moderate peripheral plaque bilateral carotid bulb level. Increased pea k systolic velocity bilaterally without elevated end-diastolic velocity or abnormal ratios. Unable to visualize right vertebral artery at this time. IMPRESSION: Mild to moderate plaque bilaterally without convincing evidence for hemodynamic signific ant stenosis in either internal carotid artery. Unable to document normal antegrade flow right vert ebral artery. Criteria for Assigning % of Stenosis / Diameter reduction (Estimation based on the indirect measurements of the internal carotid artery velocities (ICA PSV). 1. Normal (no stenosis)=ICA PSV < 125 cm/s: ratio < 2.0: ICA EDV<40 cm/s. 2. Less than 50% stenosis=ICA PSV < 125 cm/s: ratio < 2.0: ICA EDV<40 cm/s. 3. 50 to 69% stenosis=ICA PSV of 125 to 230 cm/s: ration 2.0 ? 4.0: ICA EDV 40-100 cm/s. 4. Greater than 70% stenosis to near occlusion= ICA PSV > 230 cm/s: ratio > 4.0: ICA EDV > 100 cm/s. 5. Near occlusion= ICA PSV velocities may be low or undetectable: variable ratio and ICA EDV. 6. Total occlusion=unable to detect flow.
[2019-08-04] MEDS: CEFTAZIDIME INTRAPERIT SCH (23:54)
[2019-08-05] MEDS: DIALYSIS DEX INTRAPERIT SCH ×4 (02:50→23:45)
[2019-08-05] MEDS: ACETAMINOPHEN TAB 325 MG TAB PO PRN ×2 (02:51→17:06)
[2019-08-05 05:44] LABS: Anisocytosis Slight; Basophils % (A) 1 %; Eosinophils # (A) 0.2 k/uL (0-0.7); Eosinophils % (A) 3 %; HCT 31.3 % (34.0-46.0); HGB 9.4 gm/dL (11.4-16.0); Hypochromasia Moderate; Lymphocytes # (A) 0.5 k/uL (1.0-4.8); Lymphocytes % (A) 6 %; MCH 29.3 pg (25.0-35.0); MCV 97.7 fL (80.0-100.0); Macrocytosis Slight; Mean Platelet Volume 9.7; Monocytes # (A) 0.5 k/uL (0-1.0); Monocytes % (A) 7 %; Neutrophils # (A) 6.2 k/uL (1.3-7.7); Neutrophils % (A) 82 %; Platelet Count 276 k/uL (150-450); RDW 18.1 % (11.5-15.5); WBC 7.6 k/uL (3.8-10.6)
[2019-08-05 06:01] LABS: Calcium 7.5 mg/dL (8.4-10.2); Magnesium 1.6 mg/dL (1.6-2.3)
[2019-08-05 06:40] LABS: Glucose,Whole Blood 255 mg/dL (75-99)
[2019-08-05] MEDS: INSULIN ASPART (NovoLOG) 100 UNIT/ML VIAL SQ SCH ×4 (06:47→20:41)
[2019-08-05] MEDS: INSULIN DETEMIR (LEVEMIR) 100 UNIT/ML SYR SQ SCH (06:47)
[2019-08-05] MEDS: LEVOTHYROXINE 75 MCG TAB PO SCH (06:48)
[2019-08-05] MEDS: PANTOPRAZOLE 40 MG TABLET PO SCH (06:48)
[2019-08-05] MEDS: CALCIUM ACETATE 667 MG TAB PO SCH ×3 (06:48→17:07)
[2019-08-05] MEDS ORDERED: MAGNESIUM SULFATE-D5W PMX 1 GM in DEXTROSE/WATER 1 100ML.BAG IVPB ONE (08:06)
[2019-08-05] MEDS: CLOPIDOGREL 75 MG TAB PO SCH (09:36)
[2019-08-05] MEDS: MUPIROCIN 2% OINT 22 GM TUBE TOPICAL SCH ×3 (09:36→20:44)
[2019-08-05] MEDS: METOPROLOL TARTRATE 25 MG TAB PO SCH ×2 (09:36→20:41)
[2019-08-05] MEDS: POTASSIUM CHLORIDE ER 10 MEQ TAB.ER.PRT PO SCH (09:36)
[2019-08-05] MEDS ORDERED: ARTIFICIAL TEARS-HYPROMELLOSE DROPS 15 ML BTL BOTH EYES PRN (10:39)
[2019-08-05 11:13] LABS: Glucose,Whole Blood 202 mg/dL (75-99)
--- NOTE | 2019-08-05 12:57 | P.PN ---
Subjective Progress Note Date: 08/05/19 Principal diagnosis: Acute metabolic encephalopathy, and acute mental status change This is a 63-year-old. Patient will go chest for today intensive care unit because of an altered mental status. This patient has an incisional disease and she is undergoing peritoneal dialysis. The patient also has peripheral vascular disease, below-knee amputation right lower extremity and the patient has a chronic left heel wound for which she goes to the wound center. She also is diabetic. The patient was hospitalized few days back and yesterday she was found to be quite obtunded and lethargic and encephalopathic. Neurology team has been on the case. However, around midnight, the patient became more unresponsive and a code stroke was called and the patient was not found to be a candidate for TPA based on on-call neurologist. CAT scan of the head showed no acute abnormalities. The patient had a blood gas that showed a pH of 7.33 with a pCO2 of 55 and CO2 narcosis/encephalopathy related to CO2 retention was suspected and the patient got transferred to the intensive care unit where she was given BiPAP overnight. Chest x-ray showed no acute abnormalities. No reported aspiration. The patient was already receiving intraperitoneal cefepime treatment 1 g every 24 hours and the patient was also receiving IV Zosyn and vancomycin as broad-spectrum antibiotic coverage. This morning, the patient seems to quite appropriate. She is awake and alert. She is currently on 6 L of oxygen by nasal cannula and her pulse ox is around 99-100%. She denies having any chest pain. No cough sputum production chest tightness or wheezing. She denies having any previous history of obstructive sleep apnea. She is obese with a BMI of 34.1. She is undergoing peritoneal dialysis and the dialysate has been switched to 1.5 solution 4 times a day to allow her blood pressure to stabilize. She is not having any hemodynamic changes of hypotension for now. Note that the patient's peritoneal fluid was sent again for cultures and results are still pending for now. The earlier cult ures from 07/27/2019 was positive for staph epidermidis and Proteus mirabilis. Her blood work and electrodes are all within normal limits. Random vancomycin level is at 37.9 and the vancomycin is currently on hold. No fever. No focal neurological deficit. She is able to move all 4 extremities without any limitation for now. On 08/03/2019 and seeing the patient for a follow-up. The patient is awake and alert. She is having some episodic hallucinations. She did not use the BiPAP overnight. The patient had a follow-up blood gases today which still showing a component of respiratory acidosis with a pH of 7.33 with a pCO2 of 54 and pO2 of 84. The white cell count is at 7.1. Hemoglobin is at 9.0. The patient continues to undergo peritoneal dialysis with a 1.5 solution and the patient's creatinine is at 11.2 with a BMI of 36. No hypotension. No hypoglycemia. No fever or chills. No new cultures and antibiotic coverage essentially the same. The random vancomycin level is still elevated at 26. The patient is receiving intraperitoneal Fortaz in addition to IV Zosyn. No focal neurological deficits. No seizure activity has been noted. The patient is currently on 2 L of oxygen by nasal cannula with a pleasant 98%. Normotensive. She is afebrile. The MRI of the brain was done and showed no acute abnormalities. There is scattered high signal lesion in the deep white matter of the cerebral hemispheres consistent with possibly either demyelination or migraines or small vessel ischemia. Reevaluated today on 08/04/19, patient is still in the intensive care unit, she is on 2 L nasal cannula. Chest x-ray showed basilar atelectasis. Remains on antibiotics in the form of Zosyn and intraperitoneal ceftazidime. Patient has been receiving peritoneal dialysis, sodium is a bit low today at 131, potassium is normal and is 36 creatinine is 10.5. CBC is relatively normal. ABG yesterday showed a pO2 of 84 pCO2 of 54 pH of 7.33. MRI of the brain showed no acute abnormality. Questioed chronic demyelination or small vessel ischemia. However the patient is relatively asymptomatic today. Denies any shortness of breath cough or wheezing today On 08/05/2019 patient seen in follow-up in the intensive care unit. She is awake and alert, in no acute distress, she denies any shortness of breath, she is currently on 2 L of oxygen and her pulse ox is 96%, she's been afebrile. Hemodynamically patient has been stable, she is complaining of some nausea, but has not had any vomiting. Patient is on combination of ceftazidime and vancomycin for possibility of peritonitis, blood cultures and peritoneal fluid cultures have shown no growth, urine culture showed Isabela species, not albicans or glabrata. Patient has been afebrile. Her mental status is back to baseline, she is answering questions appropriately, no speech abnormality, no neurologic deficits, no asymmetry of the face, no unilateral weakness or sensory loss. Neurology has evaluated the patient and determined that altered mental status present on admission was probably due to mild encephalopathy/delirium, which seems to be improving. Carotid Doppler 7 completed showing mild to moderate plaque bilaterally without convincing evidence of hemodynamic significant stenosis. Today's labs have been reviewed showing white blood cell count of 7.6, hemoglobin is 9.4, sodium is 129, potassium is 4.0, chloride is 93, B1 is 39 creatinine is 10.07. Magnesium level was slightly low at 1.6. But no arrhythmias on a monitor. We'll replace serum magnesium with 1 g of magnesium. Patient is tolerating CAPD exchanges, appears to be and 12 kg positive overall since admission Objective - Vital Signs Vital signs: Vital Signs Temp 98.1 F 08/05/19 10:30 Pulse 55 L 08/05/19 10:30 Resp 16 08/05/19 10:30 BP 124/72 08/05/19 10:30 Pulse Ox 93 L 08/05/19 10:30 Intake & Output 08/04/19 08/05/19 08/05/19 18:59 06:59 18:59 Intake Total 330 360 Output Total 0 0 0 Balance 330 360 0 Weight 116.573 kg Intake: IV 30 0.9 Normal Saline 30 Oral 300 360 Output: Urine 0 0 0 Other: Voiding Method CAPD CAPD CAPD # Voids 1 0 0 # Bowel Movements 2 2 - Exam GENERAL EXAM: Alert, very pleasant, 63-year-old -[place] female, on 2 L of oxygen with a pulse ox of 96% comfortable in no apparent distress. HEAD: Normocephalic/atraumatic. EYES: Normal reaction of pupils, equal size. Conjunctiva pink, sclera white. NOSE: Clear with pink turbinates. THROAT: No erythema or exudates. NECK: No masses, no JVD, no thyroid enlargement, no adenopathy. CHEST: No chest wall deformity. Symmetrical expansion. LUNGS: Equal air entry with no crackles, wheeze, rhonchi or dullness. CVS: Regular rate and rhythm, normal S1 and S2, no gallops, no murmurs, no rubs ABDOMEN: Soft, nontender. No hepatosplenomegaly, normal bowel sounds, no guarding or rigidity. EXTREMITIES: No clubbing, no edema, no cyanosis, 2+ pulses and upper and lower extremities. MUSCULOSKELETAL: Muscle strength and tone normal. SPINE: No scoliosis or deformity SKIN: No rashes CENTRAL NERVOUS SYSTEM: Alert and oriented -3. No focal deficits, tone is normal in all 4 extremities. PSYCHIATRIC: Alert and oriented -3. Appropriate affect. Intact judgment and i nsight. - Labs CBC & Chem 7: 08/05/19 04:19 08/05/19 04:19 Labs: Abnormal Lab Results - Last 24 Hours (Table) 08/04/19 08/04/19 08/04/19 Range/Units 03:56 03:56 16:51 RBC (3.80-5.40) m/uL Hgb (11.4-16.0) gm/dL Hct (34.0-46.0) % MCHC (31.0-37.0) g/dL RDW (11.5-15.5) % Lymphocytes # (1.0-4.8) k/uL ESR 93 H (0-20) mm/hr Sodium (137-145) mmol/L Chloride (98-107) mmol/L BUN (7-17) mg/dL Creatinine (0.52-1.04) mg/dL Glucose (74-99) mg/dL POC Glucose (mg/dL) 214 H (75-99) mg/dL Calcium (8.4-10.2) mg/dL C-Reactive Protein 136.4 H (<10.0) mg/L 08/04/19 08/05/19 08/05/19 Range/Units 20:48 04:19 04:19 RBC 3.20 L (3.80-5.40) m/uL Hgb 9.4 L (11.4-16.0) gm/dL Hct 31.3 L (34.0-46.0) % MCHC 30.0 L (31.0-37.0) g/dL RDW 18.1 H (11.5-15.5) % Lymphocytes # 0.5 L (1.0-4.8) k/uL ESR (0-20) mm/hr Sodium 129 L (137-145) mmol/L Chloride 93 L (98-107) mmol/L BUN 39 H (7-17) mg/dL Creatinine 10.07 H* (0.52-1.04) mg/dL Glucose 214 H (74-99) mg/dL POC Glucose (mg/dL) 199 H (75-99) mg/dL Calcium 7.5 L (8.4-10.2) mg/dL C-Reactive Protein (<10.0) mg/L 08/05/19 08/05/19 Range/Units 06:39 11:12 RBC (3.80-5.40) m/uL Hgb (11.4-16.0) gm/dL Hct (34.0-46.0) % MCHC (31.0-37.0) g/dL RDW (11.5-15.5) % Lymphocytes # (1.0-4.8) k/uL ESR (0-20) mm/hr Sodium (137-145) mmol/L Chloride (98-107) mmol/L BUN (7-17) mg/dL Creatinine (0.52-1.04) mg/dL Glucose (74-99) mg/dL POC Glucose (mg/dL) 255 H 202 H (75-99) mg/dL Calcium (8.4-10.2) mg/dL C-Reactive Protein (<10.0) mg/L Microbiology - Last 24 Hours (Table) 08/01/19 09:15 Gram Stain - Final Peritoneal Fluid Body Fluid Culture - Final 08/02/19 00:45 Blood Culture - Preliminary Blood No Growth after 72 hours 08/01/19 21:28 Blood Culture - Preliminary Blood No Growth after 72 hours 08/02/19 10:39 Urine Culture - Final Urine,Voided Isabela sp,not albicans/galbr Assessment and Plan Plan: Assessment: #1. Acute mental status changes, suspect acute metabolic encephalopathy, logic workup so far has been nondiagnostic, neurology is following #2. Acute hypercapnic restaurant failure requiring BiPAP on initial presentation, resolved, and BiPAP has been discontinued and patient is tolerating nasal cannula at 2 L #3. End-stage renal disease, and peritoneal dialysis #4. Possible gram-negative peritonitis with protein mirabilis and staph epidermidis noted on the previous peritoneal fluid cultures from 07/27/2019. Peritoneal fluid cultures from this admission have been negative and showed no growth thus far. Patient has been afebrile, abdomen has been soft, patient is covered with empiric antibiotic in the form of ceftazidime and vancomycin #5. History of hypertension #6. Diabetes mellitus type 2 with diabetic peripheral neuropathy #7. Obesity Plan: Mentation continues to improve, patient is back to baseline, she is answering questions appropriately, neurology services are following, carotid Doppler study has been noted, patient has been afebrile, no growth on the peritoneal fluid cultures, blood cultures have shown no growth, continue with same antibiotic, patient continues on accommodation of cefazolin and vancomycin. We'll give 1 g of magnesium sulfate. positive shortness of breath, wean fio2, increase activity as tolerated, from pulmonary/critical care perspective patient is able to transfer out of the intensive care unit due to to medical floor I performed a history & physical examination of the patient and discussed their management with my nurse practitioner, Deedee Okeefe. I reviewed the nurse practitioner's note and agree with the documented findings and plan of care. Lung sounds are positive for diminished breath sounds. The findings and the impression was discussed with the patient. I attest to the documentation by the nurse practitioner. Time with Patient: Less than 30
--- NOTE | 2019-08-05 13:01 | P.PN ---
Subjective Progress Note Date: 08/05/19 Principal diagnosis: Hearing loss Patient has been dry heaving all morning, she only spits out saliva. Still having a headache. Still of some abdominal pain as well. No fevers or chills. Objective - Vital Signs Vital signs: Vital Signs Temp 98.1 F 08/05/19 10:30 Pulse 55 L 08/05/19 10:30 Resp 16 08/05/19 10:30 BP 124/72 08/05/19 10:30 Pulse Ox 93 L 08/05/19 10:30 Intake & Output 08/04/19 08/05/19 08/05/19 18:59 06:59 18:59 Intake Total 330 360 Output Total 0 0 0 Balance 330 360 0 Weight 116.573 kg Intake: IV 30 0.9 Normal Saline 30 Oral 300 360 Output: Urine 0 0 0 Other: Voiding Method CAPD CAPD CAPD # Voids 1 0 0 # Bowel Movements 2 2 - Exam Constitutional: No acute distress, conversant, pleasant Eyes:Anicteric sclerae, moist conjunctiva, no lid-lag, PERRLA, ENMT: Oropharynx clear, no erythema, exudates Neck: Supple, FROM, no masses, or JVD, No carotid bruits, No thyromegaly Lungs: Clear to auscultation, Clear to percussion, Normal respiratory effort, no accessory muscle use Cardiovascular: Heart regular in rate and rhythm, No murmurs, gallops, or rubs, No peripheral edema Abdominal: Soft, Nontender, no guarding, rebound or rigidity, Normoactive bowel sounds, No hepatomegaly, No splenomegaly, No palpable mass Skin: Normal temperature, tone, texture, turgor, no induration, No subcutaneous nodules, No rash, lesions, No ulcers Extremities: No digital cyanosis, No clubbing, Pedal pulses intact and symmetrical, Radial pulses intact and symmetrical, No calf tenderness Psychiatric: Alert and oriented to person, place and time, appropriate affect, intact judgement Neuro: Muscles Strength 5/5 in all 4 extremities, Sensation to light touch grossly present throughout, Cranial nerves II-XII grossly intact, no focal sensory deficits - Labs CBC & Chem 7: 08/05/19 04:19 08/05/19 04:19 Labs: Abnormal Lab Results - Last 24 Hours (Table) 08/04/19 08/04/19 08/04/19 Range/Units 03:56 03:56 11:03 RBC (3.80-5.40) m/uL Hgb (11.4-16.0) gm/dL Hct (34.0-46.0) % MCHC (31.0-37.0) g/dL RDW (11.5-15.5) % Lymphocytes # (1.0-4.8) k/uL ESR 93 H (0-20) mm/hr Sodium (137-145) mmol/L Chloride (98-107) mmol/L BUN (7-17) mg/dL Creatinine (0.52-1.04) mg/dL Glucose (74-99) mg/dL POC Glucose (mg/dL) 192 H (75-99) mg/dL Calcium (8.4-10.2) mg/dL C-Reactive Protein 136.4 H (<10.0) mg/L 08/04/19 08/04/19 08/05/19 Range/Units 16:51 20:48 04:19 RBC 3.20 L (3.80-5.40) m/uL Hgb 9.4 L (11.4-16.0) gm/dL Hct 31.3 L (34.0-46.0) % MCHC 30.0 L (31.0-37.0) g/dL RDW 18.1 H (11.5-15.5) % Lymphocytes # 0.5 L (1.0-4.8) k/uL ESR (0-20) mm/hr Sodium (137-145) mmol/L Chloride (98-107) mmol/L BUN (7-17) mg/dL Creatinine (0.52-1.04) mg/dL Glucose (74-99) mg/dL POC Glucose (mg/dL) 214 H 199 H (75-99) mg/dL Calcium (8.4-10.2) mg/dL C-Reactive Protein (<10.0) mg/L 08/05/19 08/05/19 Range/Units 04:19 06:39 RBC (3.80-5.40) m/uL Hgb (11.4-16.0) gm/dL Hct (34.0-46.0) % MCHC (31.0-37.0) g/dL RDW (11.5-15.5) % Lymphocytes # (1.0-4.8) k/uL ESR (0-20) mm/hr Sodium 129 L (137-145) mmol/L Chloride 93 L (98-107) mmol/L BUN 39 H (7-17) mg/dL Creatinine 10.07 H* (0.52-1.04) mg/dL Glucose 214 H (74-99) mg/dL POC Glucose (mg/dL) 255 H (75-99) mg/dL Calcium 7.5 L (8.4-10.2) mg/dL C-Reactive Protein (<10.0) mg/L Microbiology - Last 24 Hours (Table) 08/01/19 09:15 Gram Stain - Final Peritoneal Fluid Body Fluid Culture - Final 08/02/19 00:45 Blood Culture - Preliminary Blood No Growth after 72 hours 08/01/19 21:28 Blood Culture - Preliminary Blood No Growth after 72 hours 08/02/19 10:39 Urine Culture - Final Urine,Voided Isabela sp,not albicans/galbr Assessment and Plan Plan: Acute toxic encephalopathy, hearing loss, and visual hallucinations - Resolved - Awaiting neuro consult, seen by psychiatry already, appreciate input - MRI with scattered high signal in the deep white matter- suspect due to small vessel disease - Patient asking for her ear to be evaluated, I told her that she needs to follow-up with ENT as an outpatient as this is not an urgent matter - ? due to vanco toxicity vs meniers vs other - Lexapro and lyrica stopped on admission End-stage renal disease on peritoneal dialysis - PD per nephro Acute hypoxic hypercarbic respiratory failure Likely sec to fluid overload Resolved. Recent peritonitis with staph epi and proteus -frotaz and vanco with PD, last WBC in peritoneal fluid 10 Nausea/dry heaving Zofran prn Could be sec to the abx Left ear hearing loss/tinnitus Outpatient ENT eval Left sided headaches currently resolved. Took some tylenol. Diabetes mellitus type 2 insulin requiring -Sliding-scale insulin, levemir qAM -A1c pending - insulin pump removed per patient hx of hypoglycemia with long acting insulin Stage II alvarez upper shoulder and back - wound care - bacitracin cream every 8 hours Constipation -Lactulose Left heel ulcer, stage IV,does not appear infected -Offload -Continue dressing changes Hyponatremia - likely chronic Weakness PT Chronic: Dyslipidemia Hypertension GERD Hypothyroidism DVT prophylaxis: Heparin Discussed with: Patient, nursing, neurologist Anticipated discharge date: 1-[address]: Home A total of 25 minutes was spent on the care of this complex patient more than 50% of the time was spent in counseling and care coordination.
--- NOTE | 2019-08-05 13:48 | P.PN ---
Subjective Progress Note Date: 08/05/19 Patient states that the headache has resolved. Patient states that she has a milder headache earlier this morning, rated 5/10, took Tylenol and it went away. The neck is not hurting her either. She is feeling overall better. No new focal symptoms. Objective - Vital Signs Vital signs: Vital Signs Temp 98.1 F 08/05/19 10:30 Pulse 55 L 08/05/19 10:30 Resp 16 08/05/19 10:30 BP 124/72 08/05/19 10:30 Pulse Ox 93 L 08/05/19 10:30 Intake & Output 08/04/19 08/05/19 08/05/19 18:59 06:59 18:59 Intake Total 330 360 Output Total 0 0 0 Balance 330 360 0 Weight 116.573 kg Intake: IV 30 0.9 Normal Saline 30 Oral 300 360 Output: Urine 0 0 0 Other: Voiding Method CAPD CAPD CAPD # Voids 1 0 0 # Bowel Movements 2 2 - Exam Deferred. - Labs CBC & Chem 7: 08/05/19 04:19 08/05/19 04:19 Labs: Abnormal Lab Results - Last 24 Hours (Table) 08/04/19 08/04/19 08/04/19 Range/Units 03:56 03:56 16:51 RBC (3.80-5.40) m/uL Hgb (11.4-16.0) gm/dL Hct (34.0-46.0) % MCHC (31.0-37.0) g/dL RDW (11.5-15.5) % Lymphocytes # (1.0-4.8) k/uL ESR 93 H (0-20) mm/hr Sodium (137-145) mmol/L Chloride (98-107) mmol/L BUN (7-17) mg/dL Creatinine (0.52-1.04) mg/dL Glucose (74-99) mg/dL POC Glucose (mg/dL) 214 H (75-99) mg/dL Calcium (8.4-10.2) mg/dL C-Reactive Protein 136.4 H (<10.0) mg/L 08/04/19 08/05/19 08/05/19 Range/Units 20:48 04:19 04:19 RBC 3.20 L (3.80-5.40) m/uL Hgb 9.4 L (11.4-16.0) gm/dL Hct 31.3 L (34.0-46.0) % MCHC 30.0 L (31.0-37.0) g/dL RDW 18.1 H (11.5-15.5) % Lymphocytes # 0.5 L (1.0-4.8) k/uL ESR (0-20) mm/hr Sodium 129 L (137-145) mmol/L Chloride 93 L (98-107) mmol/L BUN 39 H (7-17) mg/dL Creatinine 10.07 H* (0.52-1.04) mg/dL Glucose 214 H (74-99) mg/dL POC Glucose (mg/dL) 199 H (75-99) mg/dL Calcium 7.5 L (8.4-10.2) mg/dL C-Reactive Protein (<10.0) mg/L 08/05/19 08/05/19 Range/Units 06:39 11:12 RBC (3.80-5.40) m/uL Hgb (11.4-16.0) gm/dL Hct (34.0-46.0) % MCHC (31.0-37.0) g/dL RDW (11.5-15.5) % Lymphocytes # (1.0-4.8) k/uL ESR (0-20) mm/hr Sodium (137-145) mmol/L Chloride (98-107) mmol/L BUN (7-17) mg/dL Creatinine (0.52-1.04) mg/dL Glucose (74-99) mg/dL POC Glucose (mg/dL) 255 H 202 H (75-99) mg/dL Calcium (8.4-10.2) mg/dL C-Reactive Protein (<10.0) mg/L Microbiology - Last 24 Hours (Table) 08/01/19 09:15 Gram Stain - Final Peritoneal Fluid Body Fluid Culture - Final 08/02/19 00:45 Blood Culture - Preliminary Blood No Growth after 72 hours 08/01/19 21:28 Blood Culture - Preliminary Blood No Growth after 72 hours 08/02/19 10:39 Urine Culture - Final Urine,Voided Isabela sp,not albicans/galbr Assessment and Plan Assessment: * 63-year-old female admitted with altered mental status, episodic halluci nations, possible due to mild encephalopathy/delirium, related to medications, and other medical conditions as below. * New onset headaches of unclear etiology. Possible tension headaches. Rule out temporal arteritis. Computed tomography scan of the head showed right maxillary retention cyst, but otherwise no significant paranasal sinus disease. I do not believe headaches is from the minimal sinus disease. * Tinnitus and hearing loss, likely related to sensorineural hearing loss, age- related. Recommended to see an ENT specialist as outpatient. * Cervicalgia, with evidence of spondylosis in the cervical spine. Previous history of neck surgery. * End-stage renal disease on peritoneal dialysis. Recent history of gram- negative peritonitis. * Elevated cardiac enzymes. * Diabetes * Obesity * Peripheral vascular disease * Anemia * Hyponatremia * Depression Plan: * Patient's headache has resolved today. ESR is significantly elevated 93 and CRP 136.4 (normal <10). As the patient's headache has resolved, and the neck pain has significantly improved, therefore I believe her elevated ESR could be related to her recent peritonitis. If the headache recurs, then would str ongly recommend temporal artery biopsy. Discussed with patient and primary attending. * Carotid Doppler showed mild to moderate plaque bilaterally without convincing evidence for hemodynamic significant stenosis in either ICA. Unable to document normal antegrade flow in the right vertebral artery. Continue Plavix 75 mg daily. * Patient's MRI of the brain was normal, with evidence of only small vessel disease. * Continue Tylenol as needed for headaches. * Neck pain/cervicalgia likely from degenerative arthritis. Consider Mobic 7.5 mg, if no medical contraindication. Avoid opiates/narcotics.
--- NOTE | 2019-08-05 15:41 | PN ---
PROGRESS NOTE Patient is seen for followup for end-stage renal disease. She is being transferred out of the ICU to the fourth floor. Patient denies any significant complaints. Yesterday, I had increased her PD solution to 2.5% alternating with 1.5% solution as patient complained of increased lower extremity edema. She states it might be slightly better, although not significantly improved. Her blood pressure is not low and patient denies any significant shortness of breath. On examination, blood pressure was 124/72, heart rate 55 per minute, she is afebrile. Examination of lower extremities shows right BKA. Left lower extremity is wrapped. 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 LABS: Show sodium 129, potassium 4.0, serum creatinine 10.07, magnesium 1.6, BUN 39, potassium 4.0, hemoglobin 9.4 g/dL. ASSESSMENT: 1. End-stage renal disease, maintained on peritoneal dialysis. 2. CAPD peritonitis maintained on Fortaz through the PD. Zosyn was discontinued yesterday. Patient is also maintained on vancomycin. I will repeat another fluid count, last one on 08/01/2019 showed cells to be 10 on the PD fluid. 3. Hypervolemic hyponatremia. 4. Mild volume overload, I changed all exchanges to 2.5% solutions. PLAN: Change all PD fluid exchanges to 2.5% solutions. Continue with the Fortaz for now. Continue with the Rocaltrol and PhosLo. Monitor electrolytes. MMODL / IJN: [id number] /
[2019-08-05 16:31] LABS: Glucose,Whole Blood 235 mg/dL (75-99)
[2019-08-05 20:28] LABS: Glucose,Whole Blood 271 mg/dL (75-99)
[2019-08-05] MEDS: CEFTAZIDIME INTRAPERIT SCH (23:45)
[2019-08-06] MEDS: DIALYSIS DEX INTRAPERIT SCH ×3 (05:11→17:41)
[2019-08-06] MEDS: LEVOTHYROXINE 75 MCG TAB PO SCH (05:26)
[2019-08-06] MEDS: ONDANSETRON 4 MG/2 ML VIAL IVP PRN ×2 (06:26)
[2019-08-06 06:57] LABS: Glucose,Whole Blood 305 mg/dL (75-99)
[2019-08-06 08:03] LABS: Anisocytosis Slight; Basophils % (A) 1 %; Eosinophils # (A) 0.2 k/uL (0-0.7); Eosinophils % (A) 3 %; HCT 32.8 % (34.0-46.0); HGB 9.8 gm/dL (11.4-16.0); Hypochromasia Marked; Lymphocytes # (A) 0.5 k/uL (1.0-4.8); Lymphocytes % (A) 8 %; MCH 29.3 pg (25.0-35.0); MCHC 29.8 g/dL (31.0-37.0); MCV 98.3 fL (80.0-100.0); Macrocytosis Slight; Mean Platelet Volume 9.8; Monocytes # (A) 0.3 k/uL (0-1.0); Monocytes % (A) 6 %; Neutrophils # (A) 4.9 k/uL (1.3-7.7); Neutrophils % (A) 80 %; Platelet Count 295 k/uL (150-450); RBC 3.34 m/uL (3.80-5.40); RDW 17.7 % (11.5-15.5); WBC 6.2 k/uL (3.8-10.6)
[2019-08-06 08:11] LABS: Calcium 7.7 mg/dL (8.4-10.2); Magnesium 1.8 mg/dL (1.6-2.3); Potassium 3.6 mmol/L (3.5-5.1)
[2019-08-06] MEDS: CLOPIDOGREL 75 MG TAB PO SCH (08:42)
[2019-08-06] MEDS: CALCIUM ACETATE 667 MG TAB PO SCH ×3 (08:42→17:06)
[2019-08-06] MEDS: METOPROLOL TARTRATE 25 MG TAB PO SCH ×2 (08:42→21:15)
[2019-08-06] MEDS: PANTOPRAZOLE 40 MG TABLET PO SCH (08:42)
[2019-08-06] MEDS: POTASSIUM CHLORIDE ER 10 MEQ TAB.ER.PRT PO SCH (08:42)
[2019-08-06] MEDS: INSULIN ASPART (NovoLOG) 100 UNIT/ML VIAL SQ SCH ×4 (08:43→21:18)
[2019-08-06] MEDS: INSULIN DETEMIR (LEVEMIR) 100 UNIT/ML SYR SQ SCH (08:43)
[2019-08-06] MEDS: MUPIROCIN 2% OINT 22 GM TUBE TOPICAL SCH ×3 (08:46→21:18)
[2019-08-06 08:53] LABS: Glucose,Whole Blood 311 mg/dL (75-99)
[2019-08-06 10:28] LABS: Vancomycin,Random 20.2 ug/mL
--- NOTE | 2019-08-06 10:37 | P.PN ---
Subjective Progress Note Date: 08/06/19 Principal diagnosis: Hearing loss Patient is still having severe nausea and dry heaving. She mentioned to the notes that she was having bad dreams last night. No fevers or chills. No significant abdominal pain. No diarrhea or constipation. Objective - Vital Signs Vital signs: Vital Signs Temp 98.9 F 08/06/19 07:00 Pulse 68 08/06/19 08:48 Resp 14 08/06/19 08:48 BP 106/62 08/06/19 07:00 Pulse Ox 91 L 08/06/19 07:00 Intake & Output 08/05/19 08/06/19 08/06/19 18:59 06:59 18:59 Intake Total 240 230 Output Total 0 1000 Balance 240 230 -1000 Intake: IV 80 0.9 Normal Saline 80 Intake, IV Titration 100 Amount Magnesium Sulfate-D5w Pmx 100 1 gm In Dextrose/Water 1 100ml.bag @ 100 mls/hr IVPB ONCE ONE Rx#: [id number] Oral 140 150 Output: Urine 0 1000 Other: Voiding Method CAPD CAPD # Voids 0 # Bowel Movements 2 - Exam Constitutional: No acute distress, conversant, pleasant Eyes:Anicteric sclerae, moist conjunctiva, no lid-lag, PERRLA, ENMT: Oropharynx clear, no erythema, exudates Neck: Supple, FROM, no masses, or JVD, No carotid bruits, No thyromegaly Lungs: Clear to auscultation, Clear to percussion, Normal respiratory effort, no accessory muscle use Cardiovascular: Heart regular in rate and rhythm, No murmurs, gallops, or rubs, No peripheral edema Abdominal: Soft, Nontender, no guarding, rebound or rigidity, Normoactive bowel sounds, No hepatomegaly, No splenomegaly, No palpable mass Skin: Normal temperature, tone, texture, turgor, no induration, No subcutaneous nodules, No rash, lesions, No ulcers Extremities: No digital cyanosis, No clubbing, Pedal pulses intact and symmetrical, Radial pulses intact and symmetrical, No calf tenderness Psychiatric: Alert and oriented to person, place and time, appropriate affect, intact judgement Neuro: Muscles Strength 5/5 in all 4 extremities, Sensation to light touch grossly present throughout, Cranial nerves II-XII grossly intact, no focal sensory deficits - Labs CBC & Chem 7: 08/06/19 07:23 08/06/19 07:23 Labs: Abnormal Lab Results - Last 24 Hours (Table) 08/05/19 08/05/19 08/05/19 Range/Units 11:12 16:29 20:27 RBC (3.80-5.40) m/uL Hgb (11.4-16.0) gm/dL Hct (34.0-46.0) % MCHC (31.0-37.0) g/dL RDW (11.5-15.5) % Lymphocytes # (1.0-4.8) k/uL Sodium (137-145) mmol/L Chloride (98-107) mmol/L BUN (7-17) mg/dL Creatinine (0.52-1.04) mg/dL Glucose (74-99) mg/dL POC Glucose (mg/dL) 202 H 235 H 271 H (75-99) mg/dL Calcium (8.4-10.2) mg/dL 08/06/19 08/06/19 08/06/19 Range/Units 06:56 07:23 07:23 RBC 3.34 L (3.80-5.40) m/uL Hgb 9.8 L (11.4-16.0) gm/dL Hct 32.8 L (34.0-46.0) % MCHC 29.8 L (31.0-37.0) g/dL RDW 17.7 H (11.5-15.5) % Lymphocytes # 0.5 L (1.0-4.8) k/uL Sodium 130 L (137-145) mmol/L Chloride 94 L (98-107) mmol/L BUN 37 H (7-17) mg/dL Creatinine 9.82 H* (0.52-1.04) mg/dL Glucose 286 H (74-99) mg/dL POC Glucose (mg/dL) 305 H (75-99) mg/dL Calcium 7.7 L (8.4-10.2) mg/dL 08/06/19 Range/Units 08:45 RBC (3.80-5.40) m/uL Hgb (11.4-16.0) gm/dL Hct (34.0-46.0) % MCHC (31.0-37.0) g/dL RDW (11.5-15.5) % Lymphocytes # (1.0-4.8) k/uL Sodium (137-145) mmol/L Chloride (98-107) mmol/L BUN (7-17) mg/dL Creatinine (0.52-1.04) mg/dL Glucose (74-99) mg/dL POC Glucose (mg/dL) 311 H (75-99) mg/dL Calcium (8.4-10.2) mg/dL Microbiology - Last 24 Hours (Table) 08/02/19 00:45 Blood Culture - Preliminary Blood No Growth after 96 hours 08/01/19 21:28 Blood Culture - Preliminary Blood No Growth after 96 hours 08/01/19 09:15 Gram Stain - Final Peritoneal Fluid Body Fluid Culture - Final Assessment and Plan Plan: Acute toxic encephalopathy, hearing loss, and visual hallucinations - Resolved - Neuro input appreciated - MRI with scattered high signal in the deep white matter- suspect due to small vessel disease - Lexapro and lyrica stopped on admission End-stage renal disease on peritoneal dialysis - PD per nephro Acute hypoxic hypercarbic respiratory failure Likely sec to fluid overload Resolved. Recent peritonitis with staph epi and proteus -frotaz and vanco with PD, last WBC in peritoneal fluid 10 Nausea/dry heaving Zofran prn Could be sec to the abx vs peritonitis Start reglan Abd Xray Left ear hearing loss/tinnitus Outpatient ENT eval Left sided headaches currently resolved. Took some tylenol. Diabetes mellitus type 2 insulin requiring -Sliding-scale insulin, levemir qAM - insulin pump removed per patient hx of hypoglycemia with long acting insulin Stage II alvarez upper shoulder and back - wound care - bacitracin cream every 8 hours Constipation -Lactulose Left heel ulcer, stage IV,does not appear infected -Offload -Continue dressing changes Hyponatremia - likely chronic Weakness PT--needs rehab Consult Dr. Jean-Baptiste for inpatient rehab Chronic: Dyslipidemia Hypertension GERD Hypothyroidism DVT prophylaxis: Heparin Discussed with: Patient, nursing Anticipated discharge date: 1-[address]: rehab A total of 25 minutes was spent on the care of this complex patient more than 50% of the time was spent in counseling and care coordination.
--- NOTE | 2019-08-06 10:40 | XR ---
EXAMINATION TYPE: XR abdomen 1V DATE OF EXAM: 08/06/2019 COMPARISON: 01/10/2017 HISTORY: Pain TECHNIQUE: Single supine KUB image of the abdomen is obtained FINDINGS: Small bowel demonstrates no evidence for dilatation or air fluid levels. Gas and fecal material is seen in non-distended colon. No convincing evidence for pneumoperitoneum. No unusual calcifications. The lung bases are clear. The osseous structures are intact. IMPRESSION: 1. Overall nonobstructive bowel gas pattern.
[2019-08-06 11:13] LABS: Glucose,Whole Blood 287 mg/dL (75-99)
--- NOTE | 2019-08-06 14:58 | P.CONS ---
History of Present Illness - Chief Complaint Medical debility - History of Present Illness I had the opportunity to see patient for inpatient rehab consultation with regard to medical debility. She was admitted to [facility] July 30 with abdominal discomfort and recurrent peritonitis. On long-term parents and nail dialysis. Seen in consultation by Mook Su, Keyur, who notes encephalopathy. Diagnostic studies, head CT demonstrates right posterior parietal ischemic infarct. Brain MRI demonstrated scattered white matter lesions bilateral. Carotid Doppler with mild to moderate plaques. Abdominal x-ray with nonobstructive gas pattern. Patient is started therapies. PT reports moderate assistance for bed mobility and minimal assistance for transfer. OT reports supervision for upper dressing, moderate assistance for lower dressing and bathing and maximal assistance for toileting. Minimal assistance functional mobility. Previous functional history as elicited from patient: 63-year-old right-handed female who is single lives in a first-floor apartment. On retired/disabled. Describes has help for laundry and a caregiver does the driving. Patient received some assistance for sit down bath as well as some with dressing. Uses standard walker for gait. PMD Dr. Brantley. Denies tobacco or alcohol. Family history mother diabetes in father with MA. Review of Systems Review of systems: ENT: Denies sneezes or discharge. Eyes: Denies discharge or photophobia. Cardiac: Denies chest pain or palpitation. Pulmonary: Denies cough or shortness of breath. Breast: Denies discharge or lumps. Gastrointestinal: Mild abdominal discomfort. Genitourinary: Denies discharge or frequency. Musculoskeletal: Denies muscle or bone aches. Neurologic: Generalized weakness. Endocrine: Denies shakes or sweats. Oncology: Denies cancers. Dermatologic: Denies rash, itching, pruritus. ALLERGY/immunology: Denies sneezes, rashes. Past Medical History Past Medical History: Diabetes Mellitus, Dialysis, GERD/Reflux, Hyperlipidemia, Hypertension, Memory Impairment, Renal Disease, Thyroid Disorder Additional Past Medical History / Comment(s): peritoneal dialysis daily over night. hx steel syndrome left hand-please use rt arm/hand for iv, blood draws. diabetic neuropathy and diabetic retinopathy, Rt BKA uses prosthesis. 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 neck cervical 4,5,6 fused. graft tie off 04/05/2017, eye laser surgery for diabetic retinopathy Past Anesthesia/Blood Transfusion Reactions: No Reported Reaction Past Psychological History: Anxiety, Depression Smoking Status: Never smoker Past Alcohol Use History: None Reported Past Drug Use History: None Reported - Past Family History Mother Family Medical History: Diabetes Mellitus, Hypertension Additional Family Medical History / Comment(s): colon ca Father Family Medical History: Myocardial Infarction (MA) Medications and Allergies Home Medications Medication Instructions Recorded Confirmed Type Levothyroxine Sodium [Synthroid] 75 mcg PO DAILY 10/09/16 07/31/19 History Pantoprazole [Protonix] 40 mg PO DAILY 10/09/16 07/31/19 History Clopidogrel [Plavix] 75 mg PO DAILY 03/11/17 07/31/19 History Meclizine [Antivert] 25 mg PO TID PRN 04/26/17 07/31/19 History Furosemide [Lasix] 80 mg PO BID 04/23/18 07/31/19 History Metoprolol Tartrate [Lopressor] 25 mg PO BID #0 tab 11/15/18 07/31/19 Rx Acetaminophen Tab [Tylenol] 650 mg PO Q6HR PRN tab 02/27/19 07/31/19 Rx Calcium Acetate [PhosLo] 667 mg PO TID-W/MEALS cap 02/27/19 07/31/19 Rx Potassium Chloride ER [K-Dur 10] 10 meq PO DAILY tab.er.prt 02/27/19 07/31/19 Rx Calcitriol [Rocaltrol] 0.25 mcg PO Q7D 07/27/19 07/31/19 History Collagenase [Santyl] 1 applic TOPICAL DAILY 07/27/19 07/31/19 History Epoetin Edgardo [Procrit] 4,000 unit SQ MOWEFR 07/27/19 07/31/19 History Escitalopram [Lexapro] 10 mg PO DAILY 07/27/19 07/31/19 History Midodrine HCl [ProAmatine] 10 mg PO MOWEFR 07/27/19 07/31/19 History Pregabalin [Lyrica] 50 mg PO BID 07/27/19 07/31/19 History Torsemide [Demadex] 100 mg PO DAILY 07/27/19 07/31/19 History Allergies Allergy/AdvReac Type Severity Reaction Status Date / Time gabapentin Allergy Rash/Hives Verified 07/31/19 14:22 morphine Allergy Rash/Hives Verified 08/06/19 12:13 lisinopril AdvReac Cough Verified 07/31/19 14:22 quetiapine [From Seroquel] AdvReac Hallucinati Verified 08/06/19 12:15 ons Physical Exam Vitals: Vital Signs Temp Pulse Pulse Pulse Resp BP BP 08/06/19 14:46 98.8 F 64 15 08/06/19 11:52 61 126/61 08/06/19 08:48 68 14 08/06/19 07:00 98.9 F 68 14 08/06/19 02:55 98.2 F 66 19 112/66 08/05/19 18:50 98.2 F 60 19 113/70 08/05/19 17:36 99.2 F 60 142/71 BP Pulse Ox 08/06/19 14:46 129/83 95 08/06/19 11:52 08/06/19 08:48 08/06/19 07:00 106/62 91 L 08/06/19 02:55 95 08/05/19 18:50 95 08/05/19 17:36 93 L Intake and Output 08/05/19 08/06/19 08/06/19 22:59 06:59 14:59 Intake Total 290 80 310 Output Total 1000 Balance 290 80 -690 Intake: IV 80 0.9 Normal Saline 80 Oral 290 310 Output: Urine 1000 Other: Voiding Method CAPD Skin: Good color, texture, turgor. General: Obese build and comfortable appearance. Head: Normocephalic, atraumatic. Eyes: Symmetric. Pupils equal round. Ears: Symmetric. Hearing within normal limits. Mouth: Clear. Neck: Supple. Carotid without bruit. Cardiac: Regular rate and rhythm. Lungs: Clear anteriorly and posteriorly. Abdomen: Soft active nontender. Extremities: Normal tone. Neurological: Mental status: Alert, cooperative, pleasant. Cranial nerves: Symmetric facial tone and trapezius. Motor: Can actively elevates all 4 limbs. Sensation: Intact throughout. DTRs: Symmetric and equal throughout. Mobility: Required nursing assistance for transfer from bed to bedside Annabella chair. Results CBC & Chem 7: 08/06/19 07:23 08/06/19 07:23 Labs: Abnormal Lab Results - Last 24 Hours (Table) 08/05/19 08/05/19 08/06/19 Range/Units 16:29 20:27 06:56 RBC (3.80-5.40) m/uL Hgb (11.4-16.0) gm/dL Hct (34.0-46.0) % MCHC (31.0-37.0) g/dL RDW (11.5-15.5) % Lymphocytes # (1.0-4.8) k/uL Sodium (137-145) mmol/L Chloride (98-107) mmol/L BUN (7-17) mg/dL Creatinine (0.52-1.04) mg/dL Glucose (74-99) mg/dL POC Glucose (mg/dL) 235 H 271 H 305 H (75-99) mg/dL Calcium (8.4-10.2) mg/dL 08/06/19 08/06/19 08/06/19 Range/Units 07:23 07:23 08:45 RBC 3.34 L (3.80-5.40) m/uL Hgb 9.8 L (11.4-16.0) gm/dL Hct 32.8 L (34.0-46.0) % MCHC 29.8 L (31.0-37.0) g/dL RDW 17.7 H (11.5-15.5) % Lymphocytes # 0.5 L (1.0-4.8) k/uL Sodium 130 L (137-145) mmol/L Chloride 94 L (98-107) mmol/L BUN 37 H (7-17) mg/dL Creatinine 9.82 H* (0.52-1.04) mg/dL Glucose 286 H (74-99) mg/dL POC Glucose (mg/dL) 311 H (75-99) mg/dL Calcium 7.7 L (8.4-10.2) mg/dL 08/06/19 Range/Units 11:11 RBC (3.80-5.40) m/uL Hgb (11.4-16.0) gm/dL Hct (34.0-46.0) % MCHC (31.0-37.0) g/dL RDW (11.5-15.5) % Lymphocytes # (1.0-4.8) k/uL Sodium (137-145) mmol/L Chloride (98-107) mmol/L BUN (7-17) mg/dL Creatinine (0.52-1.04) mg/dL Glucose (74-99) mg/dL POC Glucose (mg/dL) 287 H (75-99) mg/dL Calcium (8.4-10.2) mg/dL Microbiology - Last 24 Hours (Table) 08/02/19 00:45 Blood Culture - Preliminary Blood No Growth after 96 hours 08/01/19 21:28 Blood Culture - Preliminary Blood No Growth after 96 hours Assessment and Plan (1) Altered mental status Current Visit: Yes Status: Acute Code(s): R41.82 - ALTERED MENTAL STATUS, UNSPECIFIED SNOMED Code(s): 627567774 (2) Abdominal pain Current Visit: No Status: Acute Code(s): R10.9 - UNSPECIFIED ABDOMINAL PAIN SNOMED Code(s): 14950624 Plan: Impression: 1. Medical debility. 2. Long-term peritoneal dialysis with recurrent peritonitis. 3. Diabetes. 4. Morbid obesity. 5. Hypertension. 6. Diabetes. 7. Memory impairment. 8. Metabolic encephalopathy related to Peritonitis. Comments and plan: PT and OT ongoing. Safety concerns noted. Patient will require assistance of caregivers for return to home and must determine at this is in fact her plan.
--- NOTE | 2019-08-06 16:06 | PN ---
PROGRESS NOTE Patient is seen for followup for end-stage renal disease. She states her swelling has improved to some degree. PHYSICAL EXAMINATION: On examination today, blood pressure is 126/61, heart rate 61 per minute. She is afebrile. EXAMINATION OF THE HEART: S1 and S2. EXAMINATION OF LUNGS: Bilateral breath sounds are heard. ABDOMEN: Soft, non-tender. Examination of lower extremities shows right BKA, 1+ edema left lower extremity. LABS: Sodium 130, potassium 3.6, chloride 94, BUN 37, creatinine 9.8, hemoglobin 9.8 g/dL. ASSESSMENT: 1. End-stage renal disease, maintained on peritoneal dialysis. Continue with 2.5% exchanges q.6 hours. 2. CAPD peritonitis. Fluid culture previously grew Staph epi and Proteus mirabilis, maintained on Fortaz and vancomycin. 3. Volume overload, somewhat improved. 4. Mental status changes with hearing loss, visual hallucinations, all resolved. 5. Left heel ulcers, stage IV. PLAN: Continue current PD exchanges. Hopefully patient can continue with PD at [facility] rather than switching to hemo, as she has not done well with hemo. MMODL / IJN: [id number] /
[2019-08-06 16:10] LABS: Glucose,Whole Blood 283 mg/dL (75-99)
[2019-08-06] MEDS: METOCLOPRAMIDE 5 MG/ML 2 ML VIAL IVP SCH (17:06)
--- NOTE | 2019-08-06 17:45 | P.PN ---
Subjective Progress Note Date: 08/06/19 Patient states that the headache has resolved. No headache hold it today. She had a very mild neck pain, which resolved without even taking Tylenol. No new focal symptoms. She feels much better., Objective - Vital Signs Vital signs: Vital Signs Temp 98.8 F 08/06/19 14:46 Pulse 64 08/06/19 14:46 Resp 15 08/06/19 14:46 BP 129/83 08/06/19 14:46 Pulse Ox 95 08/06/19 14:46 Intake & Output 08/05/19 08/06/19 08/06/19 18:59 06:59 18:59 Intake Total 240 230 410 Output Total 0 1000 Balance 240 230 -590 Intake: IV 80 0.9 Normal Saline 80 Intake, IV Titration 100 Amount Magnesium Sulfate-D5w Pmx 100 1 gm In Dextrose/Water 1 100ml.bag @ 100 mls/hr IVPB ONCE ONE Rx#: [id number] Oral 140 150 410 Output: Urine 0 1000 Other: Voiding Method CAPD CAPD # Voids 0 # Bowel Movements 2 - Exam Deferred. - Labs CBC & Chem 7: 08/06/19 07:23 08/06/19 07:23 Labs: Abnormal Lab Results - Last 24 Hours (Table) 08/05/19 08/06/19 08/06/19 Range/Units 20:27 06:56 07:23 RBC (3.80-5.40) m/uL Hgb (11.4-16.0) gm/dL Hct (34.0-46.0) % MCHC (31.0-37.0) g/dL RDW (11.5-15.5) % Lymphocytes # (1.0-4.8) k/uL Sodium 130 L (137-145) mmol/L Chloride 94 L (98-107) mmol/L BUN 37 H (7-17) mg/dL Creatinine 9.82 H* (0.52-1.04) mg/dL Glucose 286 H (74-99) mg/dL POC Glucose (mg/dL) 271 H 305 H (75-99) mg/dL Calcium 7.7 L (8.4-10.2) mg/dL 08/06/19 08/06/19 08/06/19 Range/Units 07:23 08:45 11:11 RBC 3.34 L (3.80-5.40) m/uL Hgb 9.8 L (11.4-16.0) gm/dL Hct 32.8 L (34.0-46.0) % MCHC 29.8 L (31.0-37.0) g/dL RDW 17.7 H (11.5-15.5) % Lymphocytes # 0.5 L (1.0-4.8) k/uL Sodium (137-145) mmol/L Chloride (98-107) mmol/L BUN (7-17) mg/dL Creatinine (0.52-1.04) mg/dL Glucose (74-99) mg/dL POC Glucose (mg/dL) 311 H 287 H (75-99) mg/dL Calcium (8.4-10.2) mg/dL 08/06/19 Range/Units 16:09 RBC (3.80-5.40) m/uL Hgb (11.4-16.0) gm/dL Hct (34.0-46.0) % MCHC (31.0-37.0) g/dL RDW (11.5-15.5) % Lymphocytes # (1.0-4.8) k/uL Sodium (137-145) mmol/L Chloride (98-107) mmol/L BUN (7-17) mg/dL Creatinine (0.52-1.04) mg/dL Glucose (74-99) mg/dL POC Glucose (mg/dL) 283 H (75-99) mg/dL Calcium (8.4-10.2) mg/dL Microbiology - Last 24 Hours (Table) 08/02/19 00:45 Blood Culture - Preliminary Blood No Growth after 96 hours 08/01/19 21:28 Blood Culture - Preliminary Blood No Growth after 96 hours Assessment and Plan Assessment: * 63-year-old female admitted with altered mental status, episodic hallucinations, possible due to mild encephalopathy/delirium, related to medications, and other medical conditions as below. Her encephalopathy has much improved. * New onset headaches of unclear etiology. Possible tension headaches/cervicogenic headache. Rule out temporal arteritis. No evidence of sinusitis. Headaches have remarkably improved, almost resolved. * Tinnitus and hearing loss, likely related to sensorineural hearing loss, age- related. Recommended to see an ENT specialist as outpatient. * Cervicalgia, with evidence of spondylosis in the cervical spine. Previous history of neck surgery. * End-stage renal disease on peritoneal dialysis. Recent history of gram- negative peritonitis. * Elevated cardiac enzymes. * Diabetes * Obesity * Peripheral vascular disease * Anemia * Hyponatremia * Depression Plan: * Patient's headache has resolved today. ESR is significantly elevated 93 and CRP 136.4 (normal <10). As the patient's headache has resolved, and the neck pain has significantly improved, therefore I believe her elevated ESR could be related to her recent peritonitis. If the headache recurs, then would strongly recommend temporal artery biopsy. Repeat ESR and CRP in a.m. * Carotid Doppler showed mild to moderate plaque bilaterally without convincing evidence for hemodynamic significant stenosis in either ICA. Unable to docume nt normal antegrade flow in the right vertebral artery. Continue Plavix 75 mg daily. * Patient's MRI of the brain was normal, with evidence of only small vessel disease. * Continue Tylenol as needed for headaches. * Neck pain/cervicalgia likely from degenerative arthritis. Consider Mobic 7.5 mg, if no medical contraindication. Avoid opiates/narcotics. * Neurology will sign off. Please call neurology if any concerns.
[2019-08-06] MEDS: ACETAMINOPHEN TAB 325 MG TAB PO PRN (18:18)
[2019-08-06 21:12] LABS: Glucose,Whole Blood 201 mg/dL (75-99)
[2019-08-07] MEDS: CEFTAZIDIME INTRAPERIT SCH (00:51)
[2019-08-07] MEDS: DIALYSIS DEX INTRAPERIT SCH ×4 (00:51→17:45)
[2019-08-07] MEDS: METOCLOPRAMIDE 5 MG/ML 2 ML VIAL IVP SCH ×3 (00:59→15:59)
[2019-08-07] MEDS: LEVOTHYROXINE 75 MCG TAB PO SCH (05:52)
[2019-08-07 06:58] LABS: Glucose,Whole Blood 241 mg/dL (75-99)
[2019-08-07] MEDS: ONDANSETRON 4 MG/2 ML VIAL IVP PRN (08:12)
[2019-08-07] MEDS: INSULIN DETEMIR (LEVEMIR) 100 UNIT/ML SYR SQ SCH (08:21)
[2019-08-07] MEDS: INSULIN ASPART (NovoLOG) 100 UNIT/ML VIAL SQ SCH ×4 (08:22→21:24)
[2019-08-07] MEDS: PANTOPRAZOLE 40 MG TABLET PO SCH (08:22)
[2019-08-07] MEDS: CLOPIDOGREL 75 MG TAB PO SCH (08:22)
[2019-08-07] MEDS: CALCIUM ACETATE 667 MG TAB PO SCH ×3 (08:23→17:01)
[2019-08-07] MEDS: METOPROLOL TARTRATE 25 MG TAB PO SCH ×2 (08:23→21:25)
[2019-08-07] MEDS: POTASSIUM CHLORIDE ER 10 MEQ TAB.ER.PRT PO SCH ×2 (08:23→15:44)
[2019-08-07] MEDS: MUPIROCIN 2% OINT 22 GM TUBE TOPICAL SCH ×3 (08:24→21:25)
--- NOTE | 2019-08-07 11:14 | P.PN ---
Subjective Progress Note Date: 08/07/19 Principal diagnosis: Hearing loss patient was referred to rehab by physical medicine and rehabilitation physician Dr. Jean-Baptiste, However due to peritoneal dialysis it has been difficult to find patient in place for rehabilitation. Today patient is feeling better. She is starting to eat and keeping things down. Patient states that she's feeling depressed but she does not want to take an antidepressant due to possible side effects. Objective - Vital Signs Vital signs: Vital Signs Temp 97.9 F 08/07/19 07:00 Pulse 58 L 08/07/19 08:00 Resp 16 08/07/19 08:00 BP 93/59 08/07/19 07:00 Pulse Ox 90 L 08/07/19 07:00 Intake & Output 08/06/19 08/07/19 08/07/19 18:59 06:59 18:59 Intake Total 410 Output Total 1000 Balance -590 Intake: Oral 410 Output: Urine 1000 Other: Voiding Method CAPD CAPD CAPD # Voids 1 - Exam Constitutional: No acute distress, conversant, pleasant Eyes:Anicteric sclerae, moist conjunctiva, no lid-lag, PERRLA, ENMT: Oropharynx clear, no erythema, exudates Neck: Supple, FROM, no masses, or JVD, No carotid bruits, No thyromegaly Lungs: Clear to auscultation, Clear to percussion, Normal respiratory effort, no accessory muscle use Cardiovascular: Heart regular in rate and rhythm, No murmurs, gallops, or rubs, No peripheral edema Abdominal: Soft, Nontender, no guarding, rebound or rigidity, Normoactive bowel sounds, No hepatomegaly, No splenomegaly, No palpable mass Skin: Normal temperature, tone, texture, turgor, no induration, No subcutaneous nodules, No rash, lesions, No ulcers Extremities: No digital cyanosis, No clubbing, Pedal pulses intact and symmetrical, Radial pulses intact and symmetrical, No calf tenderness Psychiatric: Alert and oriented to person, place and time, appropriate affect, intact judgement Neuro: Muscles Strength 5/5 in all 4 extremities, Sensation to light touch grossly present throughout, Cranial nerves II-XII grossly intact, no focal sensory deficits - Labs CBC & Chem 7: 08/06/19 07:23 08/06/19 07:23 Labs: Abnormal Lab Results - Last 24 Hours (Table) 08/06/19 08/06/19 08/06/19 Range/Units 11:11 16:09 21:11 ESR (0-20) mm/hr POC Glucose (mg/dL) 287 H 283 H 201 H (75-99) mg/dL C-Reactive Protein (<10.0) mg/L 08/07/19 08/07/19 08/07/19 Range/Units 06:56 07:35 07:35 ESR 108 H (0-20) mm/hr POC Glucose (mg/dL) 241 H (75-99) mg/dL C-Reactive Protein 62.3 H (<10.0) mg/L Microbiology - Last 24 Hours (Table) 08/02/19 00:45 Blood Culture - Preliminary Blood No Growth after 120 hours 08/01/19 21:28 Blood Culture - Preliminary Blood No Growth after 120 hours Assessment and Plan Plan: Acute toxic encephalopathy, hearing loss, and visual hallucinations - Resolved - Neuro input appreciated - MRI with scattered high signal in the deep white matter- suspect due to small vessel disease - Lexapro and lyrica stopped on admission End-stage renal disease on peritoneal dialysis - PD per nephro Acute hypoxic hypercarbic respiratory failure Likely sec to fluid overload Resolved. Recent peritonitis with staph epi and proteus -frotaz and vanco with PD, last WBC in peritoneal fluid 10 Nausea/dry heaving Zofran prn Could be sec to the abx vs peritonitis Continue on reglan Abd Xray showing no obstructive pattern Left ear hearing loss/tinnitus Outpatient ENT eval Left sided headaches currently resolved. Took some tylenol. Diabetes mellitus type 2 insulin requiring -Sliding-scale insulin, levemir qAM - insulin pump removed per patient hx of hypoglycemia with long acting insulin Stage II alvarez upper shoulder and back - wound care - bacitracin cream every 8 hours Constipation -Lactulose Left heel ulcer, stage IV,does not appear infected -Offload -Continue dressing changes Hyponatremia - likely chronic Weakness PT--needs rehab Currently searching for a place that accepts peritoneal dialysis Chronic: Dyslipidemia Hypertension GERD Hypothyroidism DVT prophylaxis: Heparin Discussed with: Patient, nursing Anticipated discharge date: 1-[address]: rehab A total of 25 minutes was spent on the care of this complex patient more than 50% of the time was spent in counseling and care coordination.
[2019-08-07 11:33] LABS: Glucose,Whole Blood 235 mg/dL (75-99)
--- NOTE | 2019-08-07 16:19 | PN ---
PROGRESS NOTE Patient is seen for followup for end-stage renal disease. This morning she is doing well. She denies any complaints. Her edema has improved. On examination today, blood pressure was 146/73, heart rate 61 per minute, she is afebrile. Examination of the heart S1, S2. Examination of the lungs, bilateral breath sounds are heard. Abdomen is soft, obese, non-tender. Examination of lower extremities shows right BKA. CORE MEASURES ABSTRACTOR exam grossly intact. LABS: Show from yesterday creatinine was 9.8, potassium 3.6. ASSESSMENT: 1. End-stage renal disease maintained on peritoneal dialysis, continue current PD exchanges. 2. CAPD peritonitis, maintained on antibiotics. 3. On Fortaz and vancomycin, fluid culture grew Staph epi and Proteus mirabilis. 4. Volume overload, improved. 5. Mental status changes with hearing loss. Visual hallucinations, now resolved. 6. Left heel ulcer stage IV. 7. Status post right BKA. PLAN: We will try to have the patient go to rehab where she can continue with the PD as she has not tolerated hemodialysis well previously. MMODL / IJN: [id number] /
[2019-08-07 16:22] LABS: Glucose,Whole Blood 268 mg/dL (75-99)
[2019-08-07 20:12] LABS: Glucose,Whole Blood 305 mg/dL (75-99)
--- NOTE | 2019-08-07 20:14 | P.PN ---
Subjective Progress Note Date: 08/07/19 Patient states that the headache has resolved. No headache holding today. No neck pain. No new focal symptoms. She feels much better., Objective - Vital Signs Vital signs: Vital Signs Temp 98.4 F 08/07/19 19:20 Pulse 67 08/07/19 19:20 Resp 18 08/07/19 19:20 BP 120/64 08/07/19 19:20 Pulse Ox 98 08/07/19 19:20 Intake & Output 08/07/19 08/07/19 08/08/19 06:59 18:59 06:59 Intake Total 200 Balance 200 Weight 116.573 kg Intake: Oral 200 Other: Voiding Method CAPD CAPD # Voids 1 0 # Bowel Movements 1 - Exam Mental status, speech and language functions are normal. Face is symmetric. Muscle strength appears equal.. - Labs CBC & Chem 7: 08/06/19 07:23 08/06/19 07:23 Labs: Abnormal Lab Results - Last 24 Hours (Table) 08/06/19 08/07/19 08/07/19 Range/Units 21:11 06:56 07:35 ESR 108 H (0-20) mm/hr POC Glucose (mg/dL) 201 H 241 H (75-99) mg/dL C-Reactive Protein (<10.0) mg/L 08/07/19 08/07/19 08/07/19 Range/Units 07:35 11:30 16:20 ESR (0-20) mm/hr POC Glucose (mg/dL) 235 H 268 H (75-99) mg/dL C-Reactive Protein 62.3 H (<10.0) mg/L Microbiology - Last 24 Hours (Table) 08/02/19 00:45 Blood Culture - Preliminary Blood No Growth after 120 hours 08/01/19 21:28 Blood Culture - Preliminary Blood No Growth after 120 hours Assessment and Plan Assessment: * 63-year-old female admitted with altered mental status, episodic hallucinations, possible due to mild encephalopathy/delirium, related to medications, and other medical conditions as below. Her encephalopathy has much improved. * New onset headaches of unclear etiology. Possible tension headaches/cervicogenic headache. Rule out temporal arteritis. No evidence of sinusitis. Headaches have remarkably improved, almost resolved. * Persistently elevated ESR and CRP. * Tinnitus and hearing loss, likely related to sensorineural hearing loss, age-related. Recommended to see an ENT specialist as outpatient. * Cervicalgia, with evidence of spondylosis in the cervical spine. Previous history of neck surgery. * End-stage renal disease on peritoneal dialysis. Recent history of gram- negative peritonitis. * Elevated cardiac enzymes. * Diabetes * Obesity * Peripheral vascular disease * Anemia * Hyponatremia * Depression Plan: * Patient's headache and cervicalgia has resolved. * Repeat ESR from today was even worse 108 now, which was 93 previously and CRP however has improved 62.3, which was 136.4 previously (normal <10). As the patient's headache has resolved, and the neck pain has significantly improved, therefore I believe her elevated ESR could be related to her recent peritonitis. If the headache recurs, then would strongly recommend temporal artery biopsy. Need to follow-up her ESR and CRP. May consider rheumatology evaluation. Rule out occult cancer/infection. * Carotid Doppler showed mild to moderate plaque bilaterally without convincing evidence for hemodynamic significant stenosis in either ICA. Unable to document normal antegrade flow in the right vertebral artery. Continue Plavix 75 mg daily. * Patient's MRI of the brain was normal, with evidence of only small vessel disease. * Continue Tylenol as needed for headaches. * Neck pain/cervicalgia likely from degenerative arthritis. Consider Mobic 7.5 mg, if no medical contraindication. Avoid opiates/narcotics. * Await transferred to rehab facility. * Neurology will sign off. Please call neurology if any concerns.
[2019-08-08] MEDS: CEFTAZIDIME INTRAPERIT SCH ×2 (00:55→22:50)
[2019-08-08] MEDS: DIALYSIS DEX INTRAPERIT SCH ×4 (00:55→22:50)
[2019-08-08] MEDS: METOCLOPRAMIDE 5 MG/ML 2 ML VIAL IVP SCH ×4 (01:46→23:16)
[2019-08-08] MEDS: LEVOTHYROXINE 75 MCG TAB PO SCH (06:21)
[2019-08-08 06:46] LABS: Glucose,Whole Blood 292 mg/dL (75-99)
[2019-08-08] MEDS: CLOPIDOGREL 75 MG TAB PO SCH (07:18)
[2019-08-08] MEDS: METOPROLOL TARTRATE 25 MG TAB PO SCH ×2 (07:19→21:17)
[2019-08-08] MEDS: PANTOPRAZOLE 40 MG TABLET PO SCH (07:19)
[2019-08-08] MEDS: CALCIUM ACETATE 667 MG TAB PO SCH ×3 (07:19→17:12)
[2019-08-08] MEDS: POTASSIUM CHLORIDE ER 10 MEQ TAB.ER.PRT PO SCH (07:19)
[2019-08-08] MEDS: INSULIN ASPART (NovoLOG) 100 UNIT/ML VIAL SQ SCH ×4 (07:21→21:16)
[2019-08-08] MEDS: INSULIN DETEMIR (LEVEMIR) 100 UNIT/ML SYR SQ SCH (07:21)
[2019-08-08] MEDS: ONDANSETRON 4 MG/2 ML VIAL IVP PRN (07:38)
[2019-08-08] MEDS: MUPIROCIN 2% OINT 22 GM TUBE TOPICAL SCH ×3 (07:47→21:28)
[2019-08-08 08:57] LABS: Vancomycin,Random 18.3 ug/mL
[2019-08-08 11:41] LABS: Glucose,Whole Blood 344 mg/dL (75-99)
[2019-08-08] MEDS: DIALYSIS (PERITONL) DEX 4.25% 2,500 ML INTRAPERIT SCH (11:52)
[2019-08-08] MEDS ORDERED: DIALYSIS (PERITONL) DEX 4.25% 2,500 ML INTRAPERIT SCH (12:00)
[2019-08-08] MEDS: ACETAMINOPHEN TAB 325 MG TAB PO PRN (12:48)
--- NOTE | 2019-08-08 14:00 | P.PN ---
Subjective Progress Note Date: 08/08/19 Principal diagnosis: Hearing loss Patient is feeling depressed this morning. Nausea is getting better. She complained that she hasn't slept last night because the staff kept coming in to her room. Objective - Vital Signs Vital signs: Vital Signs Temp 98.5 F 08/08/19 07:00 Pulse 70 08/08/19 07:00 Resp 17 08/08/19 07:00 BP 130/78 08/08/19 07:00 Pulse Ox 95 08/08/19 07:00 Intake & Output 08/07/19 08/08/19 08/08/19 18:59 06:59 18:59 Intake Total 200 300 Output Total 1000 Balance -800 300 Weight 116.573 kg Intake: Oral 200 300 Output: Urine 1000 Other: Voiding Method CAPD CAPD # Voids 0 1 # Bowel Movements 1 - Exam Constitutional: No acute distress, conversant, pleasant Eyes:Anicteric sclerae, moist conjunctiva, no lid-lag, PERRLA, ENMT: Oropharynx clear, no erythema, exudates Neck: Supple, FROM, no masses, or JVD, No carotid bruits, No thyromegaly Lungs: Clear to auscultation, Clear to percussion, Normal respiratory effort, no accessory muscle use Cardiovascular: Heart regular in rate and rhythm, No murmurs, gallops, or rubs, No peripheral edema Abdominal: Soft, Nontender, no guarding, rebound or rigidity, Normoactive bowel sounds, No hepatomegaly, No splenomegaly, No palpable mass Skin: Normal temperature, tone, texture, turgor, no induration, No subcutaneous nodules, No rash, lesions, No ulcers Extremities: No digital cyanosis, No clubbing, Pedal pulses intact and symmetrical, Radial pulses intact and symmetrical, No calf tenderness Psychiatric: Alert and oriented to person, place and time, appropriate affect, intact judgement Neuro: Muscles Strength 5/5 in all 4 extremities, Sensation to light touch grossly present throughout, Cranial nerves II-XII grossly intact, no focal sensory deficits - Labs CBC & Chem 7: 08/06/19 07:23 08/08/19 06:58 Labs: Abnormal Lab Results - Last 24 Hours (Table) 08/07/19 08/07/19 08/08/19 Range/Units 16:20 20:11 06:44 Creatinine (0.52-1.04) mg/dL POC Glucose (mg/dL) 268 H 305 H 292 H (75-99) mg/dL 08/08/19 08/08/19 Range/Units 06:58 11:39 Creatinine 10.05 H* (0.52-1.04) mg/dL POC Glucose (mg/dL) 344 H (75-99) mg/dL Microbiology - Last 24 Hours (Table) 08/02/19 00:45 Blood Culture - Final Blood No Growth after 144 hours 08/01/19 21:28 Blood Culture - Final Blood No Growth after 144 hours Assessment and Plan Plan: Acute toxic encephalopathy, hearing loss, and visual hallucinations - Resolved - Neuro input appreciated - MRI with scattered high signal in the deep white matter- suspect due to small vessel disease - Lexapro and lyrica stopped on admission End-stage renal disease on peritoneal dialysis - PD per nephro Acute hypoxic hypercarbic respiratory failure Likely sec to fluid overload Resolved. Recent peritonitis with staph epi and proteus -frotaz and vanco with PD, last WBC in peritoneal fluid 10 Nausea/dry heaving Zofran prn Could be sec to the abx vs peritonitis Continue on reglan Abd Xray showing no obstructive pattern Left ear hearing loss/tinnitus Outpatient ENT eval Left sided headaches currently resolved. Took some tylenol. Diabetes mellitus type 2 insulin requiring -Sliding-scale insulin, levemir qAM - insulin pump removed per patient hx of hypoglycemia with long acting insulin Stage II alavrez upper shoulder and back - wound care - bacitracin cream every 8 hours Insomnia I discussed with the nurse the need to minimize her sleep interruptions at night Depression Patient unwilling to try new antidepressant because she is scared of the side effects. Constipation -Lactulose Left heel ulcer, stage IV,does not appear infected -Offload -Continue dressing changes Hyponatremia - likely chronic Weakness PT--needs rehab Currently searching for a place that accepts peritoneal dialysis Chronic: Dyslipidemia Hypertension GERD Hypothyroidism DVT prophylaxis: Heparin Discussed with: Patient, nursing Anticipated discharge date: Ready for discharge pending placement. Anticipated discharge place: Discussed with child welfare social worker and gericare aide teacher, no rehab place has been willing to take her due to peritoneal dialysis. A total of 25 minutes was spent on the care of this complex patient more than 50% of the time was spent in counseling and care coordination.
[2019-08-08 16:35] LABS: Glucose,Whole Blood 350 mg/dL (75-99)
--- NOTE | 2019-08-08 16:45 | P.PN ---
Subjective Progress Note Date: 08/08/19 patient is laying comfortably in the bed.patient denies headache. No significant neck pain. No new focal symptoms. She feels much better. Complains of some abdominal pain since she ate food today. Objective - Vital Signs Vital signs: Vital Signs Temp 98.6 F 08/08/19 14:35 Pulse 64 08/08/19 14:35 Resp 16 08/08/19 14:35 BP 137/75 08/08/19 14:35 Pulse Ox 100 08/08/19 14:35 Intake & Output 08/07/19 08/08/19 08/08/19 18:59 06:59 18:59 Intake Total 200 300 Output Total 1000 Balance -800 300 Weight 116.573 kg Intake: Oral 200 300 Output: Urine 1000 Other: Voiding Method CAPD CAPD # Voids 0 1 # Bowel Movements 1 1 - Exam Mental status, speech and language functions are normal. Face is symmetric. Muscle strength is completely normal in both arms and legs distally and proximally. Patient does have right below-knee amputation on the right. - Labs CBC & Chem 7: 08/06/19 07:23 08/08/19 06:58 Labs: Abnormal Lab Results - Last 24 Hours (Table) 08/07/19 08/08/19 08/08/19 Range/Units 20:11 06:44 06:58 Creatinine 10.05 H* (0.52-1.04) mg/dL POC Glucose (mg/dL) 305 H 292 H (75-99) mg/dL 08/08/19 08/08/19 Range/Units 11:39 16:32 Creatinine (0.52-1.04) mg/dL POC Glucose (mg/dL) 344 H 350 H (75-99) mg/dL Microbiology - Last 24 Hours (Table) 08/02/19 00:45 Blood Culture - Final Blood No Growth after 144 hours 08/01/19 21:28 Blood Culture - Final Blood No Growth after 144 hours Assessment and Plan Assessment: * 63-year-old female admitted with altered mental status, episodic hallucinations, possible due to mild encephalopathy/delirium, related to medications, and other medical conditions as below. Her encephalopathy has much improved. * New onset headaches of unclear etiology. Possible tension headach es/cervicogenic headache. No evidence of sinusitis. Headaches have remarkably improved, almost resolved. * Persistently elevated ESR and CRP. Doubt temporal arteritis with no headache or any myofascial pain. * Tinnitus and hearing loss, likely related to sensorineural hearing loss, age- related. Recommended to see an ENT specialist as outpatient. * Cervicalgia, with evidence of spondylosis in the cervical spine. Previous history of neck surgery. * End-stage renal disease on peritoneal dialysis. Recent history of gram- negative peritonitis. * Elevated cardiac enzymes. * Diabetes * Obesity * Peripheral vascular disease * Anemia * Hyponatremia * Depression Plan: * Patient's headache and cervicalgia has resolved. * Repeat ESR from today was even worse 108 now, which was 93 previously and CRP however has improved 62.3, which was 136.4 previously (normal <10). Discussed with primary physician, believes it is from peritonitis. As the patient's hea dache has resolved, and the neck pain has significantly improved, therefore I would hold off on temporal artery biopsy. If the headache recurs, then would strongly recommend temporal artery biopsy. Need to follow-up her ESR and CRP. May consider rheumatology evaluation. Rule out occult cancer/infection. * Carotid Doppler showed mild to moderate plaque bilaterally without convincing evidence for hemodynamic significant stenosis in either ICA. Unable to document normal antegrade flow in the right vertebral artery. Continue Plavix 75 mg daily. * Patient's MRI of the brain was normal, with evidence of only small vessel disease. * Continue Tylenol as needed for headaches. * Neck pain/cervicalgia likely from degenerative arthritis. Consider Mobic 7.5 mg, if no medical contraindication. Avoid opiates/narcotics. * Await transferred to rehab facility. * Neurology will sign off. Please call neurology if any concerns.
--- NOTE | 2019-08-08 16:59 | PN ---
PROGRESS NOTE Patient is seen for followup for end-stage renal disease, currently awaiting decision regarding outpatient placement. Patient cannot be switched over to hemodialysis as she does not tolerate that well and she does need rehab. Patient is working with physical therapy during her admission here. There was an element of mild volume overload for which patient's dialysate was adjusted to 2.5% solutions. She did not eat much this morning. Otherwise, no significant complaints. PHYSICAL EXAMINATION: On examination, blood pressure was 130/78, heart rate 70 per minute, patient is afebrile. Examination of the heart S1, S2. Examination of the lungs, bilateral breath sounds are heard. Abdomen is soft, nontender. Examination of the lower extremities shows right BKA. PHYSICIAN ADVISOR exam grossly intact. LABS: Show serum creatinine 10.0. No potassium was drawn. ASSESSMENT: 1. End-stage renal disease, on peritoneal dialysis maintained on all 2.5% solutions. 2. Mild volume overload, changed solution to 2.5% alternating with 4.25, and I will likely increase the PD exchanges to q.4 hours if her serum creatinine remains elevated. 3. PD peritonitis maintained on Fortaz, status post vancomycin as well. Patient's vancomycin level was elevated. Therefore, she had not received a dose. She will get a dose today with her PD. 4. Hypertension, currently controlled. Blood pressure had been running on the lower side, currently systolic around 130s. PLAN: Change PD exchanges to 4.25% solution alternating with 2.5% solution. Currently awaiting decision regarding outpatient placement. MMODL / IJN: [id number] /
[2019-08-08 20:43] LABS: Glucose,Whole Blood 347 mg/dL (75-99)
[2019-08-09] MEDS: MELATONIN 3 MG TABLET PO PRN (02:06)
[2019-08-09] MEDS: DIALYSIS DEX INTRAPERIT SCH ×2 (05:19→23:19)
[2019-08-09] MEDS: LEVOTHYROXINE 75 MCG TAB PO SCH (05:59)
[2019-08-09 06:57] LABS: Glucose,Whole Blood 334 mg/dL (75-99)
[2019-08-09] MEDS: INSULIN ASPART (NovoLOG) 100 UNIT/ML VIAL SQ SCH ×5 (07:34→20:36)
[2019-08-09] MEDS: INSULIN DETEMIR (LEVEMIR) 100 UNIT/ML SYR SQ SCH (07:34)
[2019-08-09] MEDS: PANTOPRAZOLE 40 MG TABLET PO SCH (07:35)
[2019-08-09] MEDS: METOPROLOL TARTRATE 25 MG TAB PO SCH ×2 (07:35→20:36)
[2019-08-09] MEDS: POTASSIUM CHLORIDE ER 10 MEQ TAB.ER.PRT PO SCH (07:35)
[2019-08-09] MEDS: CALCIUM ACETATE 667 MG TAB PO SCH ×3 (07:35→17:24)
[2019-08-09] MEDS: CLOPIDOGREL 75 MG TAB PO SCH (07:35)
[2019-08-09] MEDS: METOCLOPRAMIDE 5 MG/ML 2 ML VIAL IVP SCH ×3 (07:38→23:50)
[2019-08-09] MEDS: MUPIROCIN 2% OINT 22 GM TUBE TOPICAL SCH ×3 (07:40→20:37)
[2019-08-09 09:23] LABS: Anisocytosis Slight; Basophils % (A) 1 %; Eosinophils # (A) 0.1 k/uL (0-0.7); Eosinophils % (A) 2 %; HCT 36.5 % (34.0-46.0); Hypochromasia Marked; Lymphocytes % (A) 13 %; MCH 29.5 pg (25.0-35.0); MCHC 30.1 g/dL (31.0-37.0); MCV 97.9 fL (80.0-100.0); Macrocytosis Slight; Mean Platelet Volume 9.8; Monocytes # (A) 0.9 k/uL (0-1.0); Monocytes % (A) 12 %; Neutrophils # (A) 5.1 k/uL (1.3-7.7); Neutrophils % (A) 70 %; Platelet Count 312 k/uL (150-450); RBC 3.73 m/uL (3.80-5.40); RDW 18.2 % (11.5-15.5); WBC 7.2 k/uL (3.8-10.6)
[2019-08-09 09:31] LABS: Calcium 8.1 mg/dL (8.4-10.2); Magnesium 1.8 mg/dL (1.6-2.3); Phosphorus 3.8 mg/dL (2.5-4.5); Potassium 3.9 mmol/L (3.5-5.1)
[2019-08-09 10:33] LABS: Polychromasia Present; Toxic Granulation Present
[2019-08-09] MEDS: DIALYSIS (PERITONL) DEX 4.25% 2,500 ML INTRAPERIT SCH (11:32)
[2019-08-09 11:43] LABS: Glucose,Whole Blood 319 mg/dL (75-99)
--- NOTE | 2019-08-09 13:57 | P.PN ---
Subjective Progress Note Date: 08/09/19 (delayed charting seen at 1030) Principal diagnosis: hearing loss Patient is a 63-year-old -[place] female with a past medical history of end-stage renal disease on peritoneal dialysis, diabetes mellitus type 2 on insulin pump with peripheral neuropathy and peripheral vascular disease, GERD, hypertension, dyslipidemia, and hypothyroidism who presented to the ER due to h earing loss and hallucinations. In the ER she underwent an extensive evaluation. Her initial vital signs were within normal limits. Her anemia was at baseline, creatinine above baseline at 11.53, troponin mildly elevated at 0.136. EKG normal sinus rhythm without any significant ST-T wave changes. CT head shows stable white matter changes in the right parietal occipital lobe. Chest x-ray showed mild streak atelectasis of the left lung base. Due to her elevated troponin she received a dose of aspirin in the emergency department. She was complaining of significant hearing loss, hallucinations, and difficulty staying awake arrangements were made for observation. She was also noted to h ave alvaerz to her upper shoulders that had become unroofed. By the time she was seen in the emergency department she was awake alert talking and concerned about missing PD and hearing loss. On the morning of 08/01/2019 she was alert awake and talking. Her insulin pump had been removed by nursing and she was worried about it being removed. On the evening of 08/01/2019 an A team called due to confusion and letheragy. ABG showed slight hypercapnia and she was started on Bipap and had improvement. Repeat CT head on 08/01/2019 during A team showed tight posterior whire matter hypodensity that was unchanged. Hypercarbia improved, patient reporting hallucinations and decreased hearing. She did have an episode of hypoglycemia. Echo was done which was normal and showed an EF of 55-60%. It came to light that she was restarted on lexapro last hospital stay but had not been taking in 2 months and she is unsure why she was taken off of lexapro. MRI brain showed high signal lesion in the deep white matter of the cerebral hemispheres consistent with small vessel ischemic changes. Seen by neurology who was concerned for temporal artertitis due to new onset headaches. ESR/CRP elevated but down trended throughout her stay. Carotid doppler showed mild to moderate plaque bilateral. Her headaches resolved. She continued to improve but was very weak and will need rehab. Currently awaiting approval for SNF with difficulty due to peritoneal dialysis. Patient seen and examined at bedside. She is developing edema and states that she was taking a water pill at home seem to help. She denies any nausea, vomiting, constipation, chest pain, or shortness of breath. Still feeling weak. Objective - Vital Signs Vital signs: Vital Signs Temp 98.0 F 08/09/19 07:00 Pulse 63 08/09/19 07:00 Resp 17 08/09/19 07:00 BP 140/81 08/09/19 07:00 Pulse Ox 92 L 08/09/19 07:00 Intake & Output 08/08/19 08/09/19 08/09/19 18:59 06:59 18:59 Intake Total 300 80 Balance 300 80 Intake: IV 60 0.9 Normal Saline 60 Oral 300 20 Other: Voiding Method CAPD CAPD # Bowel Movements 1 - Exam General: non toxic , no distress, appears at stated age Derm: Dressing in place over left heel, no drainage, warm, dry Head: atraumatic, normocephalic, symmetric, AUGUSTINE Eyes: EOMI, no lid lag, anicteric sclera Mouth: no lip lesion, mucus membranes moist Cardiovascular: S1S2 reg, no murmur, right BKA, 2+ radial pulses bilaterally, Lungs: decreased bs bilateral, no rhonchi, no rales , no accessory muscle use Abdominal: soft, nontender to palpation, no guarding, no appreciable organomegaly Ext: no gross muscle atrophy, 2+ edema upper thighs bilateral left> right, no contractures Neuro: CN II-XI grossly intact, no focal neuro deficits Psych: Alert and oriented, no additional hallucinations. - Labs CBC & Chem 7: 08/09/19 08:32 08/09/19 08:32 Labs: Abnormal Lab Results - Last 24 Hours (Table) 08/08/19 08/08/19 08/09/19 Range/Units 16:32 20:42 06:55 RBC (3.80-5.40) m/uL Hgb (11.4-16.0) gm/dL MCHC (31.0-37.0) g/dL RDW (11.5-15.5) % Sodium (137-145) mmol/L Chloride (98-107) mmol/L BUN (7-17) mg/dL Creatinine (0.52-1.04) mg/dL Glucose (74-99) mg/dL POC Glucose (mg/dL) 350 H 347 H 334 H (75-99) mg/dL Calcium (8.4-10.2) mg/dL 08/09/19 08/09/19 08/09/19 Range/Units 08:32 08:32 11:40 RBC 3.73 L (3.80-5.40) m/uL Hgb 11.0 L (11.4-16.0) gm/dL MCHC 30.1 L (31.0-37.0) g/dL RDW 18.2 H (11.5-15.5) % Sodium 131 L (137-145) mmol/L Chloride 95 L (98-107) mmol/L BUN 33 H (7-17) mg/dL Creatinine 9.74 H* (0.52-1.04) mg/dL Glucose 329 H (74-99) mg/dL POC Glucose (mg/dL) 319 H (75-99) mg/dL Calcium 8.1 L (8.4-10.2) mg/dL Assessment and Plan Assessment: Weakness and debility - awaiting SNF placement End-stage renal disease on peritoneal dialysis - PD per nephro Recent peritonitis with staph epi and proteus -frotaz with PD s/p 3 doses of vanco likley should be completed, WBC in fluid 10 Constipation -Lactulose Diabetes mellitus type 2 insulin requiring -Sliding-scale insulin, levemir qAM increased, fixed dose of 1 unit -A1c pending - insulin pump removed per patient hx of hypoglycemia with long acting insulin Left heel ulcer, stage IV,does not appear infected -Offload -Continue dressing changes Hyponatremia, chronic - likely due to increased fluid balance - PD - nephro recs Chronic: Dyslipidemia Hypertension GERD Hypothyroidism Toxic metabolic encephalopathy, improved Hearing loss, resolved Hallucinations, resolved Headache, resolved Mildly elevated troponin, ASC ruled out Stage II alvarez upper shoulder and back, healed DVT prophylaxis: Heparin Discussed with: Patient, nursing Anticipated discharge date: once SNF accepts patiemt Anticipated discharge place: SNF A total of 25 minutes was spent on the care of this complex patient more than 50% of the time was spent in counseling and care coordination.
--- NOTE | 2019-08-09 14:29 | PN ---
PROGRESS NOTE Patient is seen for followup for end-stage renal disease. No significant complaints today. Volume status seems to have improved. The patient can be discharged now to a half-way in the vicinity with plans to continue with PD. I have discussed with and they have made an exception given the current situation with COVID-19 and patient's inability to tolerate hemodialysis. PHYSICAL EXAMINATION: On examination today, blood pressure is 140/81, heart rate 63 per minute. She is afebrile. EXAMINATION OF THE HEART: S1, S2. EXAMINATION OF THE LUNGS: Bilateral breath sounds are heard. ABDOMEN: Soft, nontender, obese. Examination of lower extremities shows right BKA, trace edema noted. LABS: Labs show sodium of 131, potassium 3.9, BUN 33, creatinine 9.74, hemoglobin 11.0. ASSESSMENT: 1. End-stage renal disease, on peritoneal dialysis, continue current PD exchanges. 2. Volume overload, now maintained on 2.5% solution alternating with 4.25% solution. Continue current treatment for now. 3. Nausea, seems to have improved. Patient is maintained on Reglan. She is also on Protonix, which she should continue. 4. Hypokalemia, status post replacement. 5. CAPD peritonitis, status post Vanco. Currently maintained on Fortaz, which we will continue. PLAN: Continue current PD exchanges and continue her phosphate binders and calcitriol along with the Aranesp for the anemia. The patient can be discharged to rehab facility in the vicinity with plans to continue with PD upon discharge. MMODL / IJN: [id number] /
[2019-08-09] MEDS: TORSEMIDE 20 MG TAB PO SCH (14:40)
[2019-08-09 16:46] LABS: Glucose,Whole Blood 212 mg/dL (75-99)
[2019-08-09] MEDS ORDERED: DIALYSIS DEX INTRAPERIT ONE (18:00)
[2019-08-09] MEDS ORDERED: VANCOMYCIN INTRAPERIT ONE (18:00)
[2019-08-09 20:06] LABS: Glucose,Whole Blood 327 mg/dL (75-99)
[2019-08-09] MEDS: CEFTAZIDIME INTRAPERIT SCH (23:19)
[2019-08-09 23:21] LABS: Hemoglobin A1C 7.5 % (4.0-6.0)
[2019-08-10] MEDS: DIALYSIS DEX INTRAPERIT SCH ×3 (06:30→23:26)
[2019-08-10] MEDS: LEVOTHYROXINE 75 MCG TAB PO SCH (06:30)
[2019-08-10] MEDS: INSULIN ASPART (NovoLOG) 100 UNIT/ML VIAL SQ SCH ×7 (07:44→20:28)
[2019-08-10] MEDS: CALCIUM ACETATE 667 MG TAB PO SCH ×3 (07:44→17:09)
[2019-08-10] MEDS: PANTOPRAZOLE 40 MG TABLET PO SCH (07:44)
[2019-08-10] MEDS: INSULIN DETEMIR (LEVEMIR) 100 UNIT/ML SYR SQ SCH (07:44)
[2019-08-10] MEDS: METOCLOPRAMIDE 5 MG/ML 2 ML VIAL IVP SCH ×3 (07:45→23:26)
[2019-08-10] MEDS: CLOPIDOGREL 75 MG TAB PO SCH (07:45)
[2019-08-10] MEDS: TORSEMIDE 20 MG TAB PO SCH (07:45)
[2019-08-10] MEDS: METOPROLOL TARTRATE 25 MG TAB PO SCH ×2 (07:45→20:28)
[2019-08-10] MEDS: MUPIROCIN 2% OINT 22 GM TUBE TOPICAL SCH ×3 (07:46→20:30)
[2019-08-10 07:50] LABS: Glucose,Whole Blood 345 mg/dL (75-99)
[2019-08-10] MEDS: DIALYSIS (PERITONL) DEX 4.25% 2,500 ML INTRAPERIT SCH (11:36)
[2019-08-10 11:41] LABS: Glucose,Whole Blood 292 mg/dL (75-99)
--- NOTE | 2019-08-10 14:32 | PN ---
PROGRESS NOTE The patient is seen for followup for end-stage renal disease. She has had mild volume overload and is maintained on 4.25% solution alternating with 2.5%. She has had good UF of about 1.5 L with the last dialysis exchange. There were issues with outpatient placement. However, the patient will continue with PD at rehab once she is discharged from the hospital. has agreed to make an exception given the current situation. Patient has a poor appetite and she is maintained on proton pump inhibitors but continues to have nausea. No other complaints. EXAMINATION: Today blood pressure was 112/50, heart rate 72 per minute. She is afebrile. Examination of the heart S1, S2. Examination of the lungs, decreased breath sounds at bases. ABDOMEN: Soft. Morbidly obese, nontender. Examination of lower extremities shows right BKA. Trace edema left lower extremity. LABS SHOW: Hemoglobin 11.0, sodium 131, potassium 3.9, serum creatinine 9.7. ASSESSMENT: 1. End-stage renal disease maintained on peritoneal dialysis. Currently maintained on 2.5% solution alternating with 4.25% solutions q.6 hours. 2. Volume overload, now improving. 3. Mental status changes, hearing loss on initial admission now resolved. 4. PD peritonitis, currently improved. Patient is maintained on Fortaz through the PD fluid. She is done with vancomycin. Fluid culture grew Staph epi and Proteus mirabilis. PLAN: Patient will continue with PD exchanges post discharge. She is encouraged to increase her oral intake. MMODL / IJN: [id number] /
--- NOTE | 2019-08-10 16:17 | P.PN ---
Subjective Progress Note Date: 08/10/19 Principal diagnosis: hearing loss Patient is a 63-year-old -[place] female with a past medical history of end-stage renal disease on peritoneal dialysis, diabetes mellitus type 2 on insulin pump with peripheral neuropathy and peripheral vascular disease, GERD, hypertension, dyslipidemia, and hypothyroidism who presented to the ER due to hearing loss and hallucinations. In the ER she underwent an extensive evaluation. Her initial vital signs were within normal limits. Her anemia was at baseline, creatinine above baseline at 11.53, troponin mildly elevated at 0.136. EKG normal sinus rhythm without any significant ST-T wave changes. CT head shows stable white matter changes in the right parietal occipital lobe. Chest x-ray showed mild streak atelectasis of the left lung base. Due to her elevated troponin she received a dose of aspirin in the emergency department. She was complaining of significant hearing loss, hallucinations, and difficulty staying awake arrangements were made for observation. She was also noted to have alvarez to her upper shoulders that had become unroofed. By the time she was seen in the emergency department she was awake alert talking and concerned about missing PD and hearing loss. On the morning of 08/01/2019 she was alert awake and talking. Her insulin pump had been removed by nursing and she was worried about it being removed. On the evening of 08/01/2019 an A team called due to confusion and letheragy. ABG showed slight hypercapnia and she was started on Bipap and had improvement. Repeat CT head on 08/01/2019 during A team showed tight posterior whire matter hypodensity that was unchanged. Hypercarbia improved, patient reporting hallucinations and decreased hearing. She did have an episode of hypoglycemia. Echo was done which was normal and showed an EF of 55-60%. It came to light that she was restarted on lexapro last hospital stay but had not been taking in 2 months and she is unsure why she was taken off of lexapro. MRI brain showed high signal lesion in the deep white matter of the cerebral hemispheres consistent with small vessel ischemic changes. Seen by neurology who was concerned for temporal artertitis due to new onset headaches. ESR/CRP elevated but down trended throughout her stay. Carotid doppler showed mild to moderate plaque bilateral. Her headaches resolved. She continued to improve but was very weak and will need rehab. Currently awaiting approval for SNF with difficulty due to peritoneal dialysis. Patient seen and examined at bedside. Deep is better today and she urinated twice yesterday. No chest pain or shortness of breath. Does have some nausea today she is unsure where it is coming from. No other complaints currently. Objective - Vital Signs Vital signs: Vital Signs Temp 98.8 F 08/10/19 15:00 Pulse 74 08/10/19 15:00 Resp 18 08/10/19 15:00 BP 149/81 08/10/19 15:00 Pulse Ox 98 08/10/19 15:00 Intake & Output 08/09/19 08/10/19 08/10/19 18:59 06:59 18:59 Weight 119 kg Other: Voiding Method CAPD CAPD # Voids 0 1 - Exam General: non toxic , no distress, appears at stated age Derm: Dressing in place over left heel, no drainage, warm, dry Head: atraumatic, normocephalic, symmetric, [place] Eyes: EOMI, no lid lag, anicteric sclera Mouth: no lip lesion, mucus membranes moist Cardiovascular: S1S2 reg, no murmur, right BKA, 2+ radial pulses bilaterally, Lungs: decreased bs bilateral, no rhonchi, no rales , no accessory muscle use Abdominal: soft, nontender to palpation, no guarding, no appreciable organomegaly Ext: no gross muscle atrophy, 1+ edema upper thighs bilateral left> right, no contractures Neuro: CN II-XI grossly intact, no focal neuro deficits Psych: Alert and oriented, no additional hallucinations. - Labs CBC & Chem 7: 08/09/19 08:32 08/09/19 08:32 Labs: Abnormal Lab Results - Last 24 Hours (Table) 08/06/19 08/09/19 08/09/19 Range/Units 07:23 16:44 20:03 POC Glucose (mg/dL) 212 H 327 H (75-99) mg/dL Hemoglobin A1c 7.5 H (4.0-6.0) % 08/10/19 08/10/19 Range/Units 07:39 11:34 POC Glucose (mg/dL) 345 H 292 H (75-99) mg/dL Hemoglobin A1c (4.0-6.0) % Assessment and Plan Assessment: Weakness and debility - awaiting SNF placement End-stage renal disease on peritoneal dialysis - PD per nephro Recent peritonitis with staph epi and proteus -frotaz with PD s/p 3 doses of vanco likley should be completed, WBC in fluid 10 Constipation -Lactulose Diabetes mellitus type 2 insulin requiring -Sliding-scale insulin, levemir, fixed dose of 3 units -A1c pending - insulin pump removed per patient hx of hypoglycemia with long acting insulin Left heel ulcer, stage IV,does not appear infected -Offload -Continue dressing changes -Consult Clint to re-eval for need for debridement Hyponatremia, chronic - likely due to increased fluid balance - PD - nephro recs Chronic: Dyslipidemia Hypertension GERD Hypothyroidism Toxic metabolic encephalopathy, improved Hearing loss, resolved Hallucinations, resolved Headache, resolved Mildly elevated troponin, ASC ruled out Stage II alvarez upper shoulder and back, healed DVT prophylaxis: Heparin Discussed with: Patient, nursing Anticipated discharge date: once SNF accepts patiemt Anticipated discharge place: SNF A total of 25 minutes was spent on the care of this complex patient more than 50% of the time was spent in counseling and care coordination.
[2019-08-10 16:54] LABS: Glucose,Whole Blood 229 mg/dL (75-99)
[2019-08-10] MEDS: ACETAMINOPHEN TAB 325 MG TAB PO PRN (17:26)
[2019-08-10 20:19] LABS: Glucose,Whole Blood 164 mg/dL (75-99)
[2019-08-10] MEDS: CEFTAZIDIME INTRAPERIT SCH (23:26)
[2019-08-11] MEDS: MELATONIN 3 MG TABLET PO PRN (03:57)
[2019-08-11] MEDS: DIALYSIS DEX INTRAPERIT SCH ×4 (06:26→23:02)
[2019-08-11 07:02] LABS: Glucose,Whole Blood 278 mg/dL (75-99)
[2019-08-11 07:46] LABS: Anisocytosis Slight; Basophils % (A) 0 %; Eosinophils # (A) 0.2 k/uL (0-0.7); Eosinophils % (A) 3 %; HCT 37.2 % (34.0-46.0); HGB 11.1 gm/dL (11.4-16.0); Hypochromasia Marked; Lymphocytes # (A) 0.7 k/uL (1.0-4.8); Lymphocytes % (A) 8 %; MCHC 29.8 g/dL (31.0-37.0); MCV 97.4 fL (80.0-100.0); Macrocytosis Slight; Mean Platelet Volume 9.4; Monocytes # (A) 0.5 k/uL (0-1.0); Monocytes % (A) 6 %; Neutrophils # (A) 6.7 k/uL (1.3-7.7); Neutrophils % (A) 82 %; Platelet Count 311 k/uL (150-450); RBC 3.82 m/uL (3.80-5.40); RDW 17.7 % (11.5-15.5); WBC 8.2 k/uL (3.8-10.6)
[2019-08-11] MEDS: METOCLOPRAMIDE 5 MG/ML 2 ML VIAL IVP SCH ×2 (07:50→16:49)
[2019-08-11] MEDS: INSULIN ASPART (NovoLOG) 100 UNIT/ML VIAL SQ SCH ×7 (07:50→21:21)
[2019-08-11] MEDS: PANTOPRAZOLE 40 MG TABLET PO SCH (07:51)
[2019-08-11] MEDS: INSULIN DETEMIR (LEVEMIR) 100 UNIT/ML SYR SQ SCH (07:51)
[2019-08-11] MEDS: METOPROLOL TARTRATE 25 MG TAB PO SCH ×2 (07:51→21:21)
[2019-08-11] MEDS: POTASSIUM CHLORIDE ER 10 MEQ TAB.ER.PRT PO SCH (07:53)
[2019-08-11] MEDS: LEVOTHYROXINE 75 MCG TAB PO SCH (07:54)
[2019-08-11] MEDS: CALCITRIOL 0.25 MCG CAP PO SCH (07:54)
[2019-08-11] MEDS: CLOPIDOGREL 75 MG TAB PO SCH (07:54)
[2019-08-11] MEDS: TORSEMIDE 20 MG TAB PO SCH (07:54)
[2019-08-11] MEDS: CALCIUM ACETATE 667 MG TAB PO SCH ×3 (07:55→16:48)
[2019-08-11] MEDS: MUPIROCIN 2% OINT 22 GM TUBE TOPICAL SCH ×3 (07:57→21:24)
[2019-08-11 08:08] LABS: Calcium 7.9 mg/dL (8.4-10.2); Potassium 3.6 mmol/L (3.5-5.1)
[2019-08-11] MEDS: DARBEPOETIN ALFA 40 MCG/0.4 ML SYRINGE SQ SCH (08:41)
--- NOTE | 2019-08-11 09:18 | P.PN ---
Subjective Patient is seen in follow-up for end-stage renal disease. She is maintained on peritoneal dialysis. No problems with peritoneal dialysis exchanges. No chest pain. Edema improving. Awaiting discharged to rehab. Vital signs are stable. General: The patient appeared well nourished and normally developed. HEENT: Head exam is unremarkable. Neck is without jugular venous distension. LUNGS: Lungs are clear to auscultation and percussion. Breath sounds decreased. HEART: Rate and Rhythm are regular. First and second heart sounds normal. No murmurs, rubs or gallops. ABDOMEN: Soft. Nontender. EXTREMITITES: No clubbing, cyanosis, or edema. Right BKA. Objective - Vital Signs Vital signs: Vital Signs Temp 97.8 F 08/11/19 07:00 Pulse 73 08/11/19 07:00 Resp 16 08/11/19 07:00 BP 151/79 08/11/19 07:00 Pulse Ox 96 08/11/19 07:00 Intake & Output 08/10/19 08/11/19 08/11/19 18:59 06:59 18:59 Weight 119 kg Other: Voiding Method CAPD CAPD # Voids 1 - Labs CBC & Chem 7: 08/11/19 07:25 08/11/19 07:25 Labs: Abnormal Lab Results - Last 24 Hours (Table) 08/10/19 08/10/19 08/10/19 Range/Units 11:34 16:52 20:16 Hgb (11.4-16.0) gm/dL MCHC (31.0-37.0) g/dL RDW (11.5-15.5) % Lymphocytes # (1.0-4.8) k/uL Sodium (137-145) mmol/L Chloride (98-107) mmol/L BUN (7-17) mg/dL Creatinine (0.52-1.04) mg/dL Glucose (74-99) mg/dL POC Glucose (mg/dL) 292 H 229 H 164 H (75-99) mg/dL Calcium (8.4-10.2) mg/dL 08/11/19 08/11/19 08/11/19 Range/Units 07:00 07:25 07:25 Hgb 11.1 L (11.4-16.0) gm/dL MCHC 29.8 L (31.0-37.0) g/dL RDW 17.7 H (11.5-15.5) % Lymphocytes # 0.7 L (1.0-4.8) k/uL Sodium 132 L (137-145) mmol/L Chloride 96 L (98-107) mmol/L BUN 29 H (7-17) mg/dL Creatinine 9.77 H* (0.52-1.04) mg/dL Glucose 317 H (74-99) mg/dL POC Glucose (mg/dL) 278 H (75-99) mg/dL Calcium 7.9 L (8.4-10.2) mg/dL Assessment and Plan Plan: Assessment: 1. End-stage renal disease maintained on peritoneal dialysis. 2. Volume overload. Improved with 4.25% exchanges. 3. PD peritonitis status post 2 doses of intraperitoneal vancomycin. Currently maintained on intraperitoneal Fortaz daily. 4. Altered renal status likely metabolic in nature. Improved. 5. Insulin-dependent diabetes mellitus. 6. Hyponatremia secondary to chronic kidney disease. 7. Chronic kidney disease mineral bone disease maintained on PhosLo and calcitriol. 8. Anemia of chronic kidney disease maintained on Aranesp. Hemoglobin at goal. Plan: I will change all PD exchanges to 2.5% dextrose solution. Maintain intraperitoneal Fortaz daily for another 2 days. Awaiting discharged to rehab.
[2019-08-11 11:46] LABS: Glucose,Whole Blood 291 mg/dL (75-99)
[2019-08-11] MEDS ORDERED: LIDOCAINE 1% INJ 10MG/ML (20 ML MDV) SQ ONE (12:07)
[2019-08-11 13:25] VITALS: BMI 37.6
--- NOTE | 2019-08-11 14:06 | P.PN ---
Subjective Progress Note Date: 08/11/19 Principal diagnosis: hearing loss Patient is a 63-year-old -[place] female with a past medical history of end-stage renal disease on peritoneal dialysis, diabetes mellitus type 2 on insulin pump with peripheral neuropathy and peripheral vascular disease, GERD, hypertension, dyslipidemia, and hypothyroidism who presented to the ER due to hearing loss and hallucinations. In the ER she underwent an extensive evaluation. Her initial vital signs were within normal limits. Her anemia was at baseline, creatinine above baseline at 11.53, troponin mildly elevated at 0.136. EKG normal sinus rhythm without any significant ST-T wave changes. CT head shows stable white matter changes in the right parietal occipital lobe. Chest x-ray showed mild streak atelectasis of the left lung base. Due to her elevated troponin she received a dose of aspirin in the emergency department. She was complaining of significant hearing loss, hallucinations, and difficulty staying awake arrangements were made for observation. She was also noted to have alvarez to her upper shoulders that had become unroofed. By the time she was seen in the emergency department she was awake alert talking and concerned about missing PD and hearing loss. On the morning of 08/01/2019 she was alert awake and talking. Her insulin pump had been removed by nursing and she was worried about it being removed. On the evening of 08/01/2019 an A team called due to confusion and letheragy. ABG showed slight hypercapnia and she was started on Bipap and had improvement. Repeat CT head on 08/01/2019 during A team showed tight posterior whire matter hypodensity that was unchanged. Hypercarbia improved, patient reporting hallucinations and decreased hearing. She did have an episode of hypoglycemia. Echo was done which was normal and showed an EF of 55-60%. It came to light that she was restarted on lexapro last hospital stay but had not been taking in 2 months and she is unsure why she was taken off of lexapro. MRI brain showed high signal lesion in the deep white matter of the cerebral hemispheres consistent with small vessel ischemic changes. Seen by neurology who was concerned for temporal artertitis due to new onset headaches. ESR/CRP elevated but down trended throughout her stay. Carotid doppler showed mild to moderate plaque bilateral. Her headaches resolved. She continued to improve but was very weak and will need rehab. Currently awaiting approval for SNF with difficulty due to peritoneal dialysis. Patient seen and examined at bedside. C/O worsening b/l hand pain and asking for lyrica to be restarted. No chest pain, SOB, nuasea resolved, no diarrhea of constipation. Objective - Vital Signs Vital signs: Vital Signs Temp 98.2 F 08/11/19 11:50 Pulse 73 08/11/19 07:00 Resp 16 08/11/19 07:00 BP 151/79 08/11/19 07:00 Pulse Ox 96 08/11/19 07:00 Intake & Output 08/10/19 08/11/19 08/11/19 18:59 06:59 18:59 Weight 119 kg Other: Voiding Method CAPD CAPD # Voids 1 - Exam General: non toxic, no distress, appears at stated age Derm: Dressing in place over left heel, no drainage, warm, dry Head: atraumatic, normocephalic, symmetric, [place] Eyes: EOMI, no lid lag, anicteric sclera Mouth: no lip lesion, mucus membranes moist Cardiovascular: S1S2 reg, no murmur, right BKA, 2+ radial pulses bilaterally, Lungs: decreased bs bilateral, no rhonchi, no rales , no accessory muscle use Abdominal: soft, nontender to palpation, no guarding, no appreciable organomegaly Ext: no gross muscle atrophy, trace edema upper thighs bilateral left> right, no contractures Neuro: CN II-XI grossly intact, no focal neuro deficits Psych: Alert and oriented, no additional hallucinations. - Labs CBC & Chem 7: 08/11/19 07:25 08/11/19 07:25 Labs: Abnormal Lab Results - Last 24 Hours (Table) 08/10/19 08/10/19 08/11/19 Range/Units 16:52 20:16 07:00 Hgb (11.4-16.0) gm/dL MCHC (31.0-37.0) g/dL RDW (11.5-15.5) % Lymphocytes # (1.0-4.8) k/uL Sodium (137-145) mmol/L Chloride (98-107) mmol/L BUN (7-17) mg/dL Creatinine (0.52-1.04) mg/dL Glucose (74-99) mg/dL POC Glucose (mg/dL) 229 H 164 H 278 H (75-99) mg/dL Calcium (8.4-10.2) mg/dL 08/11/19 08/11/19 08/11/19 Range/Units 07:25 07:25 11:45 Hgb 11.1 L (11.4-16.0) gm/dL MCHC 29.8 L (31.0-37.0) g/dL RDW 17.7 H (11.5-15.5) % Lymphocytes # 0.7 L (1.0-4.8) k/uL Sodium 132 L (137-145) mmol/L Chloride 96 L (98-107) mmol/L BUN 29 H (7-17) mg/dL Creatinine 9.77 H* (0.52-1.04) mg/dL Glucose 317 H (74-99) mg/dL POC Glucose (mg/dL) 291 H (75-99) mg/dL Calcium 7.9 L (8.4-10.2) mg/dL Assessment and Plan Assessment: Weakness and debility - awaiting SNF placement End-stage renal disease on peritoneal dialysis - PD per nephro Recent peritonitis with staph epi and proteus -frotaz with PD for an additional 2 doses, s/p 3 doses of vanco, WBC in fluid 10 Constipation -Lactulose Diabetes mellitus type 2 insulin requiring -Sliding-scale insulin, levemir increased , fixed dose of 5 units -A1c pending - insulin pump removed per patient hx of hypoglycemia with long acting insulin Left heel ulcer, stage IV,does not appear infected -Offload -Continue dressing changes -Consult Clint to re-eval for need for debridement Hyponatremia, chronic - PD - nephro recs Chronic: Dyslipidemia Hypertension GERD Hypothyroidism Toxic metabolic encephalopathy, improved Hearing loss, resolved Hallucinations, resolved Headache, resolved Mildly elevated troponin, ASC ruled out Stage II alvarez upper shoulder and back, healed DVT prophylaxis: Heparin Discussed with: Patient, nursing Anticipated discharge date: once SNF accepts patiemt Anticipated discharge place: SNF A total of 25 minutes was spent on the care of this complex patient more than 50% of the time was spent in counseling and care coordination.
[2019-08-11] MEDS ORDERED: PREGABALIN 25 MG CAP PO STA (16:33)
[2019-08-11 16:42] LABS: Glucose,Whole Blood 175 mg/dL (75-99)
[2019-08-11] MEDS: COLLAGENASE 250 UNIT/GM OINTMENT 30 GM TUBE TOPICAL SCH (16:48)
[2019-08-11 20:51] LABS: Glucose,Whole Blood 152 mg/dL (75-99)
--- NOTE | 2019-08-11 23:04 | CONS ---
DATE OF CONSULTATION: 08/11/2019 The patient is well known to me from the wound clinic. The patient has a pressure ulcer left heel. She has been coming to the Wound Care for local wound care. She has been admitted with medical issues. The patient still has some devitalized tissue present on the left heel which will need debridement. MEDICAL HISTORY: History of end-stage renal failure. Patient is on peritoneal dialysis. SURGICAL HISTORY: Patient had a right BK amputation in the past, history of diabetes, history of obesity. PHYSICAL EXAMINATION: Patient was seen in her room. The patient is on peritoneal dialysis. NECK: Supple. CHEST: Clear. ABDOMEN: Soft. Femorals are 1+. Left heel has infected wound with some devitalized tissue which will need further debridement. We will arrange for the bedside debridement. Follow with you. Thank you very much for the consultation. EUGENIA / LAKEN: [id number] / MTDD
--- NOTE | 2019-08-11 23:20 | OP ---
OPERATIVE REPORT PREOPERATIVE DIAGNOSIS: Pressure ulcer, left heel. Measurement is 5 x 4 cm with devitalized tissue. OPERATION: Debridement of the wound down to subcutaneous tissue and removal of the devitalized tissue. PROCEDURE DESCRIPTION: The patient was seen. Left foot was prepped and draped in sterile manner. Lidocaine 1% was infiltrated. Using a sharp knife, we did the debridement down to subcutaneous tissue. All the devitalized tissue was removed. Some bleeding was noted. The wound was irrigated with saline and we placed Medihoney gel to the wound and did the compression dressing. PLAN: We will use Santyl cream from tomorrow, and if the patient goes home, I will follow her in the wound clinic on Sunday. MMODL / IJN: [id number] /
[2019-08-12] MEDS: METOCLOPRAMIDE 5 MG/ML 2 ML VIAL IVP SCH ×3 (01:51→17:04)
[2019-08-12] MEDS: DIALYSIS DEX INTRAPERIT SCH ×4 (05:00→23:12)
[2019-08-12] MEDS: LEVOTHYROXINE 75 MCG TAB PO SCH (06:16)
[2019-08-12 07:00] LABS: Glucose,Whole Blood 186 mg/dL (75-99)
[2019-08-12] MEDS: INSULIN DETEMIR (LEVEMIR) 100 UNIT/ML SYR SQ SCH (07:46)
[2019-08-12] MEDS: INSULIN ASPART (NovoLOG) 100 UNIT/ML VIAL SQ SCH ×7 (07:46→21:54)
[2019-08-12] MEDS: TORSEMIDE 20 MG TAB PO SCH (07:47)
[2019-08-12] MEDS: CLOPIDOGREL 75 MG TAB PO SCH (07:48)
[2019-08-12] MEDS: POTASSIUM CHLORIDE ER 10 MEQ TAB.ER.PRT PO SCH (07:48)
[2019-08-12] MEDS: PREGABALIN 25 MG CAP PO SCH (07:48)
[2019-08-12] MEDS: METOPROLOL TARTRATE 25 MG TAB PO SCH ×2 (07:49→21:54)
[2019-08-12] MEDS: PANTOPRAZOLE 40 MG TABLET PO SCH (07:49)
[2019-08-12] MEDS: CALCIUM ACETATE 667 MG TAB PO SCH ×3 (07:49→17:24)
[2019-08-12] MEDS: COLLAGENASE 250 UNIT/GM OINTMENT 30 GM TUBE TOPICAL SCH (07:50)
[2019-08-12] MEDS: MUPIROCIN 2% OINT 22 GM TUBE TOPICAL SCH ×3 (07:50→21:55)
--- NOTE | 2019-08-12 09:07 | P.PN ---
Subjective Patient is seen in follow-up for end-stage renal disease. She is maintained on peritoneal dialysis. No problems with peritoneal dialysis exchanges. No chest pain. Edema improving. Awaiting discharged to rehab. Vital signs are stable. General: The patient appeared well nourished and normally developed. HEENT: Head exam is unremarkable. Neck is without jugular venous distension. LUNGS: Lungs are clear to auscultation and percussion. Breath sounds decreased. HEART: Rate and Rhythm are regular. First and second heart sounds normal. No murmurs, rubs or gallops. ABDOMEN: Soft. Nontender. EXTREMITITES: No clubbing, cyanosis, or edema. Right BKA. Objective - Vital Signs Vital signs: Vital Signs Temp 98.8 F 08/12/19 07:18 Pulse 72 08/12/19 07:18 Resp 17 08/12/19 07:18 BP 117/69 08/12/19 07:18 Pulse Ox 96 08/12/19 07:18 Intake & Output 08/11/19 08/12/19 08/12/19 18:59 06:59 18:59 Intake Total 100 Balance 100 Weight 119 kg 118 kg Intake: Oral 100 Other: # Voids 1 - Labs CBC & Chem 7: 08/11/19 07:25 08/11/19 07:25 Labs: Abnormal Lab Results - Last 24 Hours (Table) 08/11/19 08/11/19 08/11/19 Range/Units 11:45 16:41 20:49 POC Glucose (mg/dL) 291 H 175 H 152 H (75-99) mg/dL 08/12/19 Range/Units 06:53 POC Glucose (mg/dL) 186 H (75-99) mg/dL Assessment and Plan Plan: Assessment: 1. End-stage renal disease maintained on peritoneal dialysis. 2. Volume overload. Improved with 4.25% exchanges. 3. PD peritonitis status post 2 doses of intraperitoneal vancomycin. Currently maintained on intraperitoneal Fortaz daily. 4. Altered renal status likely metabolic in nature. Improved. 5. Insulin-dependent diabetes mellitus. 6. Hyponatremia secondary to chronic kidney disease. 7. Chronic kidney disease mineral bone disease maintained on PhosLo and calcitriol. 8. Anemia of chronic kidney disease maintained on Aranesp. Hemoglobin at goal. Plan: Maintain PD exchanges with 2.5% dextrose solution. Maintain intraperitoneal Fortaz daily. Last dose tomorrow.. Awaiting discharged to rehab.
[2019-08-12 12:02] LABS: Glucose,Whole Blood 211 mg/dL (75-99)
--- NOTE | 2019-08-12 16:05 | P.PN ---
Subjective Progress Note Date: 08/12/19 (delayed charting seen at 11am) Principal diagnosis: hearing loss Patient is a 63-year-old -[place] female with a past medical history of end-stage renal disease on peritoneal dialysis, diabetes mellitus type 2 on insulin pump with peripheral neuropathy and peripheral vascular disease, GERD, hypertension, dyslipidemia, and hypothyroidism who presented to the ER due to h earing loss and hallucinations. In the ER she underwent an extensive evaluation. Her initial vital signs were within normal limits. Her anemia was at baseline, creatinine above baseline at 11.53, troponin mildly elevated at 0.136. EKG normal sinus rhythm without any significant ST-T wave changes. CT head shows stable white matter changes in the right parietal occipital lobe. Chest x-ray showed mild streak atelectasis of the left lung base. Due to her elevated troponin she received a dose of aspirin in the emergency department. She was complaining of significant hearing loss, hallucinations, and difficulty staying awake arrangements were made for observation. She was also noted to h ave alvarez to her upper shoulders that had become unroofed. By the time she was seen in the emergency department she was awake alert talking and concerned about missing PD and hearing loss. On the morning of 08/01/2019 she was alert awake and talking. Her insulin pump had been removed by nursing and she was worried about it being removed. On the evening of 08/01/2019 an A team called due to confusion and letheragy. ABG showed slight hypercapnia and she was started on Bipap and had improvement. Repeat CT head on 08/01/2019 during A team showed tight posterior whire matter hypodensity that was unchanged. Hypercarbia improved, patient reporting hallucinations and decreased hearing. She did have an episode of hypoglycemia. Echo was done which was normal and showed an EF of 55-60%. It came to light that she was restarted on lexapro last hospital stay but had not been taking in 2 months and she is unsure why she was taken off of lexapro. MRI brain showed high signal lesion in the deep white matter of the cerebral hemispheres consistent with small vessel ischemic changes. Seen by neurology who was concerned for temporal artertitis due to new onset headaches. ESR/CRP elevated but down trended throughout her stay. Carotid doppler showed mild to moderate plaque bilateral. Her headaches resolved. She continued to improve but was very weak and will need rehab. Currently awaiting approval for SNF with difficulty due to peritoneal dialysis. She has continued to improve drastically. She did have her right heal wound again debrided by Dr. Zaman on 08/11/2019. Patient seen and examined at bedside. Hands are slightly better today after chandra restarted. No chest pain, SOB, nasuea, or vomiting, no diarrhea. Feeling better overall. Objective - Vital Signs Vital signs: Vital Signs Temp 99.3 F 08/12/19 14:32 Pulse 68 08/12/19 14:32 Resp 15 08/12/19 14:32 BP 124/83 08/12/19 14:32 Pulse Ox 100 08/12/19 14:32 Intake & Output 08/11/19 08/12/19 08/12/19 18:59 06:59 18:59 Intake Total 100 560 Balance 100 560 Weight 119 kg 118 kg Intake: Oral 100 560 Other: # Voids 1 - Exam General: non toxic, no distress, appears at stated age Derm: Dressing in place over left heal, no drainage, warm, dry Head: atraumatic, normocephalic, symmetric, [place] Eyes: EOMI, no lid lag, anicteric sclera Mouth: no lip lesion, mucus membranes moist Cardiovascular: S1S2 reg, no murmur, right BKA, 2+ radial pulses bilaterally, Lungs: decreased bs bilateral, no rhonchi, no rales , no accessory muscle use Abdominal: soft, nontender to palpation, no guarding, no appreciable organomegaly Ext: no gross muscle atrophy, no edema bilateral thighs, no contractures Neuro: CN II-XI grossly intact, no focal neuro deficits Psych: Alert and oriented, no additional hallucinations. - Labs CBC & Chem 7: 08/11/19 07:25 08/11/19 07:25 Labs: Abnormal Lab Results - Last 24 Hours (Table) 08/11/19 08/11/19 08/12/19 Range/Units 16:41 20:49 06:53 POC Glucose (mg/dL) 175 H 152 H 186 H (75-99) mg/dL 08/12/19 Range/Units 12:00 POC Glucose (mg/dL) 211 H (75-99) mg/dL Assessment and Plan Assessment: Weakness and debility - awaiting SNF placement End-stage renal disease on peritoneal dialysis - PD per nephro Recent peritonitis with staph epi and proteus -frotaz with PD for an additional 1 dose, s/p 3 doses of vanco, WBC in fluid 10 Diabetes mellitus type 2 insulin requiring -Sliding-scale insulin, levemir increased , fixed dose of 5 units -A1c pending - insulin pump removed per patient hx of hypoglycemia with long acting insulin Left heel ulcer, stage IV,does not appear infected -Offload -Continue dressing changes -Consult Clint to re-eval for need for debridement Hyponatremia, chronic - PD - nephro recs Chronic: Dyslipidemia Hypertension GERD Hypothyroidism Toxic metabolic encephalopathy, improved Hearing loss, resolved Hallucinations, resolved Headache, resolved Mildly elevated troponin, ASC ruled out Stage II alvarez upper shoulder and back, healed Constipation, resolved DVT prophylaxis: Heparin Discussed with: Patient, nursing Anticipated discharge date: 08/14/[address]: SNF A total of 25 minutes was spent on the care of this complex patient more than 50% of the time was spent in counseling and care coordination.
[2019-08-12 16:27] LABS: Glucose,Whole Blood 163 mg/dL (75-99)
[2019-08-12 21:37] LABS: Glucose,Whole Blood 151 mg/dL (75-99)
[2019-08-12] MEDS: ACETAMINOPHEN TAB 325 MG TAB PO PRN (23:21)
[2019-08-13] MEDS: METOCLOPRAMIDE 5 MG/ML 2 ML VIAL IVP SCH ×2 (00:43→07:42)
[2019-08-13] MEDS: DIALYSIS DEX INTRAPERIT SCH ×2 (05:42→14:08)
[2019-08-13] MEDS: LEVOTHYROXINE 75 MCG TAB PO SCH (05:57)
[2019-08-13 06:42] LABS: Glucose,Whole Blood 310 mg/dL (75-99)
[2019-08-13 07:33] VITALS: BP 95/63; PULSE 67; RESP 18; TEMP 98.7
[2019-08-13] MEDS: CALCIUM ACETATE 667 MG TAB PO SCH (07:39)
[2019-08-13] MEDS: POTASSIUM CHLORIDE ER 10 MEQ TAB.ER.PRT PO SCH (07:39)
[2019-08-13] MEDS: INSULIN DETEMIR (LEVEMIR) 100 UNIT/ML SYR SQ SCH (07:39)
[2019-08-13] MEDS: INSULIN ASPART (NovoLOG) 100 UNIT/ML VIAL SQ SCH ×4 (07:39→12:12)
[2019-08-13] MEDS: PANTOPRAZOLE 40 MG TABLET PO SCH (07:40)
[2019-08-13] MEDS: PREGABALIN 25 MG CAP PO SCH (07:40)
[2019-08-13] MEDS: CLOPIDOGREL 75 MG TAB PO SCH (07:40)
[2019-08-13] MEDS: METOPROLOL TARTRATE 25 MG TAB PO SCH (07:40)
[2019-08-13] MEDS: MUPIROCIN 2% OINT 22 GM TUBE TOPICAL SCH (07:41)
[2019-08-13] MEDS: COLLAGENASE 250 UNIT/GM OINTMENT 30 GM TUBE TOPICAL SCH (07:41)
[2019-08-13] MEDS: TORSEMIDE 20 MG TAB PO SCH (07:42)
[2019-08-13 11:36] LABS: Glucose,Whole Blood 158 mg/dL (75-99)
--- NOTE | 2019-08-13 12:03 | P.PN ---
Subjective Patient is seen in follow-up for end-stage renal disease. She is maintained on peritoneal dialysis. No problems with peritoneal dialysis exchanges. No chest pain. Edema improving. She wishes to go home. Vital signs are stable. General: The patient appeared well nourished and normally developed. HEENT: Head exam is unremarkable. Neck is without jugular venous distension. LUNGS: Lungs are clear to auscultation and percussion. Breath sounds decreased. HEART: Rate and Rhythm are regular. First and second heart sounds normal. No murmurs, rubs or gallops. ABDOMEN: Soft. Nontender. EXTREMITITES: No clubbing, cyanosis, or edema. Right BKA. Objective - Vital Signs Vital signs: Vital Signs Temp 98.7 F 08/13/19 07:00 Pulse 67 08/13/19 07:00 Resp 18 08/13/19 07:00 BP 95/63 08/13/19 07:00 Pulse Ox 98 08/13/19 07:00 Intake & Output 08/12/19 08/13/19 08/13/19 18:59 06:59 18:59 Intake Total 560 200 Balance 560 200 Weight 118 kg Intake: Oral 560 200 Other: # Voids 1 # Bowel Movements 1 - Labs CBC & Chem 7: 08/11/19 07:25 08/11/19 07:25 Labs: Abnormal Lab Results - Last 24 Hours (Table) 08/12/19 08/12/19 08/12/19 Range/Units 12:00 16:26 21:36 POC Glucose (mg/dL) 211 H 163 H 151 H (75-99) mg/dL 08/13/19 08/13/19 Range/Units 06:40 11:35 POC Glucose (mg/dL) 310 H 158 H (75-99) mg/dL Assessment and Plan Plan: Assessment: 1. End-stage renal disease maintained on peritoneal dialysis. 2. Volume overload. Improved with 4.25% exchanges. 3. PD peritonitis status post 2 doses of intraperitoneal vancomycin. Currently maintained on intraperitoneal Fortaz daily. 4. Altered renal status likely metabolic in nature. Improved. 5. Insulin-dependent diabetes mellitus. 6. Hyponatremia secondary to chronic kidney disease. 7. Chronic kidney disease mineral bone disease maintained on PhosLo and calcitriol. 8. Anemia of chronic kidney disease maintained on Aranesp. Hemoglobin at goal. Plan: Maintain PD exchanges with 2.5% dextrose solution. Maintain intraperitoneal Fortaz daily. Last dose today. Stable to be discharged home from nephrology standpoint.
--- NOTE | 2019-08-13 12:51 | P.DS ---
Providers Date of admission: 08/02/19 01:25 Expected date of discharge: 08/13/19 Attending physician: Lianet Loja DO Consults: 07/31/19 17:52 Consult Physician Stat Consulting Provider: Ben Sheffield Consult Reason/Comments: elevated troponin Do you want consulting provider notified?: Yes 07/31/19 19:38 Consult Physician Routine Consulting Provider: Semaj Chu Consult Reason/Comments: ESRD Do you want consulting provider notified?: Already Contacted 08/02/19 01:00 Consult Physician Stat Consulting Provider: Huan Daniel Consult Reason/Comments: ICU Admission Do you want consulting provider notified?: Already Contacted 08/02/19 14:56 Consult Physician Routine Consulting Provider: Javad Suárez Consult Reason/Comments: hallucinations, vertigo Do you want consulting provider notified?: Yes 08/02/19 19:45 Consult Physician Routine Consulting Provider: Jc Jaramillo Consult Reason/Comments: heal ulcer Do you want consulting provider notified?: Yes, Notify in am 08/03/19 20:43 Consult Physician Routine Consulting Provider: Rosemarie Vu Consult Reason/Comments: altered menation, hearing loss Do you want consulting provider notified?: Yes, Notify in am 08/04/19 01:39 Consult Physician Routine Consulting Provider: [place] Baer Consult Reason/Comments: Altered Mental Status Do you want consulting provider notified?: Yes 08/06/19 10:32 Consult Physician Routine Consulting Provider: Kevin Jean-Baptiste Consult Reason/Comments: weak Do you want consulting provider notified?: Yes Primary care physician: Keyur Pettit Hospital Course: Discharge Diagnosis: Weakness and Debility End-stage renal disease on peritoneal dialysis Recent peritonitis with staph epi and proteus DM type 2 insulin requiring Left heal ulcer stage IV Hyponatremia HLD HTN GERD Hypothyroidism Toxic metabolic encephalopathy, improved Hearing loss, resolved Hallucinations, resolved Headache, resolved Mildly elevated troponin, ASC ruled out Stage II alvarez upper shoulder and back, healed Constipation, resolved Hospital Course: Patient is a 63-year-old -[place] female with a past medical history of end-stage renal disease on peritoneal dialysis, diabetes mellitus type 2 on insulin pump with peripheral neuropathy and peripheral vascular disease, GERD, hypertension, dyslipidemia, and hypothyroidism who presented to the ER due to hearing loss and hallucinations. In the ER she underwent an extensive evaluation. Her initial vital signs were within normal limits. Her anemia was at baseline, creatinine above baseline at 11.53, troponin mildly elevated at 0.136. EKG normal sinus rhythm without any significant ST-T wave changes. CT head shows stable white matter changes in the right parietal occipital lobe. Chest x-ray showed mild streak atelectasis of the left lung base. Due to her elevated troponin she received a dose of aspirin in the emergency department. She was complaining of significant hearing loss, hallucinations, and difficulty staying awake arrangements were made for observation. She was also noted to have alvarez to her upper shoulders that had become unroofed. By the time she was seen in the emergency department she was awake alert talking and concerned about missing PD and hearing loss. On the morning of 08/01/2019 she was alert awake and talking. Her insulin pump had been removed by nursing and she was worried about it being removed. On the evening of 08/01/2019 an A team called due to confusion and letheragy. ABG showed slight hypercapnia and she was started on Bipap and had improvement. Repeat CT head on 08/01/2019 during A team showed tight posterior whire matter hypodensity that was unchanged. Hypercarbia improved, patient reporting hallucinations and decreased hearing. She did have an episode of hypoglycemia. Echo was done which was normal and showed an EF of 55-60%. It came to light that she was restarted on lexapro last hospital stay but had not been taking in 2 months and she is unsure why she was taken off of lexapro. MRI brain showed high signal lesion in the deep white matter of the cerebral hemispheres consistent with small vessel ischemic changes. Seen by neurology who was concerned for temporal artertitis due to new onset headaches. ESR/CRP elevated but down trended throughout her stay. Carotid doppler showed mild to moderate plaque bilateral. Her headaches resolved. She continued to improve but was very weak. She has continued to improve drastically. She did have her right heal wound again debrided by Dr. Zaman on 08/11/2019. Initially waiting for approval for shelter facility, however mild the shelter facilities were able to accommodate her peritoneal dialysis. After much discussion with the patient with the patient and nephrology we concluded that she was stable to go home with home care. We will attempt to get her as much help in the home as we can. She'll have close follow-up with nephrology and her peritoneal dialysis nurse. She will resume her insulin pump. Patient seen and examined at bedside. She is feeling frustrated but improved. She denies any chest pain, shortness breath, nausea, or vomiting. General: non toxic, no distress, appears at stated age Derm: Dressing in place over left heal, no drainage, warm, dry Head: atraumatic, normocephalic, symmetric, [place] Eyes: EOMI, no lid lag, anicteric sclera Mouth: no lip lesion, mucus membranes moist Cardiovascular: S1S2 reg, no murmur, right BKA, 2+ radial pulses bilaterally, Lungs: decreased bs bilateral, no rhonchi, no rales , no accessory muscle use Abdominal: soft, nontender to palpation, no guarding, no appreciable organomegaly Ext: no gross muscle atrophy, no edema bilateral thighs, no contractures Neuro: CN II-XI grossly intact, no focal neuro deficits Psych: Alert and oriented, no additional hallucinations. A total of 35 minutes of time were spent preparing this complex discharge summary . Patient Condition at Discharge: Stable Plan - Discharge Summary Discharge Rx Participant: No New Discharge Prescriptions: New Pregabalin [Lyrica] 25 mg PO BID #60 cap Continue Pantoprazole [Protonix] 40 mg PO DAILY Levothyroxine Sodium [Synthroid] 75 mcg PO DAILY Clopidogrel [Plavix] 75 mg PO DAILY Metoprolol Tartrate [Lopressor] 25 mg PO BID #0 tab Potassium Chloride ER [K-Dur 10] 10 meq PO DAILY tab.er.prt Calcium Acetate [PhosLo] 667 mg PO TID-W/MEALS cap Acetaminophen Tab [Tylenol] 650 mg PO Q6HR PRN tab PRN Reason: Fever And/ Or Pain Collagenase [Santyl] 1 applic TOPICAL DAILY Epoetin Edgardo [Procrit] 4,000 unit SQ MOWEFR Torsemide [Demadex] 100 mg PO DAILY Calcitriol [Rocaltrol] 0.25 mcg PO Q7D Discontinued Meclizine [Antivert] 25 mg PO TID PRN PRN Reason: Vertigo Furosemide [Lasix] 80 mg PO BID Midodrine HCl [ProAmatine] 10 mg PO MOWEFR Escitalopram [Lexapro] 10 mg PO DAILY Pregabalin [Lyrica] 50 mg PO BID Discharge Medication List Levothyroxine Sodium [Synthroid] 75 mcg PO DAILY 10/09/16 [History] Pantoprazole [Protonix] 40 mg PO DAILY 10/09/16 [History] Clopidogrel [Plavix] 75 mg PO DAILY 03/11/17 [History] Metoprolol Tartrate [Lopressor] 25 mg PO BID #0 tab 11/15/18 [Rx] Acetaminophen Tab [Tylenol] 650 mg PO Q6HR PRN tab 02/27/19 [Rx] Calcium Acetate [PhosLo] 667 mg PO TID-W/MEALS cap 02/27/19 [Rx] Potassium Chloride ER [K-Dur 10] 10 meq PO DAILY tab.er.prt 02/27/19 [Rx] Calcitriol [Rocaltrol] 0.25 mcg PO Q7D 07/27/19 [History] Collagenase [Santyl] 1 applic TOPICAL DAILY 07/27/19 [History] Epoetin Edgardo [Procrit] 4,000 unit SQ MOWEFR 07/27/19 [History] Torsemide [Demadex] 100 mg PO DAILY 07/27/19 [History] Pregabalin [Lyrica] 25 mg PO BID #60 cap 08/13/19 [Rx] Follow up Appointment(s)/Referral(s): [facility], [NON-STAFF] - Wound Healing,Center [NON-STAFF] - 1 Week Keyur Pettit [Primary Care Provider] - 1-2 days Raimundo Jin MD [STAFF PHYSICIAN] - 1 Week Activity/Diet/Wound Care/Special Instructions: Activity: as tolerated Diet: Carb consistent, dialysis Wound Care: Patient to see Dr Jaramillo Sunday08/18/2019 in Wound Center - please make appointment when office open Discharge Disposition: HOME SELF-CARE
--- NOTE | 2019-08-15 10:02 | CDI ---
Documentation Clarification Form Date: 08/15/2019 09:34:18 AM From: Ina Pereira Admit Date: 08/02/2019 01:25:00 AM Patient Name: Maldonado Cedillo Visit Number: [id number] Discharge Date: 08/13/2019 02:48:00 PM ATTENTION: The Clinical Documentation Specialists (CDI) and [facility] Coding Staff appreciate your assistance in clarifying documentation. Please respond to the clarification below the line at the bottom and electronically sign. The CDI & [facility] Coding staff will review the response and follow-up if needed. Please note: Queries are made part of the Legal Health Record. If you have any questions, please contact the author of this message via ITS. Dr. Jc Jaramillo Per your operative note 08/10, a debridement was performed on left heel pressure ulcer. History/Risk Factors: 63-year-old female presents to the ED with Altered mental status. Medical history ESRD, Right BKA, DM, Peritoneal Dialysis and left heel ulcer stage IV Clinical Indicators: Left Heel Pressure Ulcer Treatment: Debridement of the Left Heel Pressure Ulcer , [facility] Five elements required for accurate and compliant documentation of a debridement: 1. Technique used (e.g., excisional, excised, cutting, etc.) 2. Instrument(s) used - Sharp knife. 3. Nature of the tissue removed - devitalized tissue 4. Appearance and size of the wound 5 x 4 cm devitalized tissue 5. Depth of the debridement* - Subcutaneous tissue In order to capture the severity of condition and code the appropriate procedure; could you please document the following: Excisional debridement (the removal of necrotic, devitalized tissue or slough by means of cutting away of tissue) Non-excisional debridement (the removal of necrotic, devitalized tissue or slough by means of flushing, brushing, or washing. (Irrigation) Other; please specify Unable to determine (Last Revision: July 2017) Documented in Procedure note 08/[address] Jaramillo - excision and debridement of the devitalized tissue, the instrument used was sharp knife. to subcutaneous tissue 5x4cm MTDD
--- NOTE | 2019-08-23 18:25 | PCN ---
PROCEDURE NOTE DATE OF SURGERY: 08/15/2019 PREOP DIAGNOSIS: Pressure ulcer wound on the left heel with measurement is 5 x 4 cm. FINDINGS: There is a devitalized tissue present at the base of the wound. OPERATION: Excision and debridement of the devitalized tissue. The instrument used was sharp knife. DESCRIPTION OF PROCEDURE: The left heel was prepped and drapes applied in the usual sterile manner. This patient has history of neuropathy. Lidocaine is applied to the wound. Using sharp knife, we did the debridement down to subcutaneous tissue and all the devitalized tissue was excised with sharp knife. No active bleeding was noted. The wound was irrigated with saline and dressing applied. The patient tolerated the procedure well. PLAN: Patient will be following in the wound clinic. MMODL / IJN: [id number] /
== END 2019-08-13 14:48 | disposition home or self-care (01) | DRG 40 ==
LOC: EC 14:15 → 3SCARD 16:43 → 2SICU 08-01 23:53 → OBSVTOIN 08-02 01:25 → 2SICU 08-04 14:25 → 4SSUR 08-05 10:12
PROVIDERS: ADMIT Internal Medicine; ATTEND Internal Medicine
PROC: 5A1D70Z Performance of Urinary Filtration, Intermittent, Less than 6 Hours Per Day (ICD-10-PCS; 2019-08-02)
PROC: 5A09457 Assistance with Respiratory Ventilation, 24-96 Consecutive Hours, Continuous Positive Airway Pressure (ICD-10-PCS; 2019-08-02)
PROC: 0JBR0ZZ Excision of Left Foot Subcutaneous Tissue and Fascia, Open Approach (ICD-10-PCS; principal; 2019-08-11)
DX: G92 Toxic encephalopathy (principal); L89.624 Pressure ulcer of left heel, stage 4; N18.6 End stage renal disease; J96.02 Acute respiratory failure with hypercapnia; K65.2 Spontaneous bacterial peritonitis; I12.0 Hypertensive chronic kidney disease with stage 5 chronic kidney disease or end stage renal disease; T80.29XA Infection following other infusion, transfusion and therapeutic injection, initial encounter; E87.1 Hypo-osmolality and hyponatremia; E87.2 Acidosis; D63.1 Anemia in chronic kidney disease; E78.5 Hyperlipidemia, unspecified; E66.01 Morbid (severe) obesity due to excess calories; E11.65 Type 2 diabetes mellitus with hyperglycemia; E11.51 Type 2 diabetes mellitus with diabetic peripheral angiopathy without gangrene; E11.649 Type 2 diabetes mellitus with hypoglycemia without coma; R44.1 Visual hallucinations; E87.70 Fluid overload, unspecified; H90.3 Sensorineural hearing loss, bilateral; E87.6 Hypokalemia; H93.19 Tinnitus, unspecified ear; I51.7 Cardiomegaly; M47.9 Spondylosis, unspecified; R53.81 Other malaise; F32.9 Major depressive disorder, single episode, unspecified; F41.9 Anxiety disorder, unspecified; I44.0 Atrioventricular block, first degree; Z60.2 Problems related to living alone; K59.00 Constipation, unspecified; T22.259A Burn of second degree of unspecified shoulder, initial encounter; N25.0 Renal osteodystrophy; E11.42 Type 2 diabetes mellitus with diabetic polyneuropathy; E11.319 Type 2 diabetes mellitus with unspecified diabetic retinopathy without macular edema; E03.9 Hypothyroidism, unspecified; Z96.41 Presence of insulin pump (external) (internal); E11.22 Type 2 diabetes mellitus with diabetic chronic kidney disease; K21.9 Gastro-esophageal reflux disease without esophagitis; Z79.899 Other long term (current) drug therapy; Z79.890 Hormone replacement therapy; Z79.4 Long term (current) use of insulin; Z79.02 Long term (current) use of antithrombotics/antiplatelets; Z88.8 Allergy status to other drugs, medicaments and biological substances; Z80.0 Family history of malignant neoplasm of digestive organs; Z82.49 Family history of ischemic heart disease and other diseases of the circulatory system; Z90.710 Acquired absence of both cervix and uterus; Z98.1 Arthrodesis status; Z99.2 Dependence on renal dialysis; Z89.511 Acquired absence of right leg below knee; Z86.14 Personal history of Methicillin resistant Staphylococcus aureus infection; Z98.890 Other specified postprocedural states; Z83.3 Family history of diabetes mellitus; Z99.89 Dependence on other enabling machines and devices; Z68.36 Body mass index [BMI] 36.0-36.9, adult; Z75.1 Person awaiting admission to adequate facility elsewhere
CPT/HCPCS: 36415; 36600; 70450; 70551; 71045; 71046; 74018; 80048; 80053; 80202; 82140; 82565; 82805; 83036; 83735; 84100; 84484; 85025; 85610; 85652; 85730; 86140; 87040; 87070; 87086; 87205; 89050; 93005; 93306; 93880; 94660; 99285

== ENCOUNTER 2019-08-24 07:35 | Emergency (ER) | payer MEDICARE ==
[2019-08-24 07:47] VITALS: TEMP 98.5
[2019-08-24 07:55] LABS: Glucose,Whole Blood 392 mg/dL (75-99)
--- NOTE | 2019-08-24 08:04 | ED ---
General Adult HPI - General Chief complaint: Nausea/Vomiting/Diarrhea Stated complaint: dehydration Time Seen by Provider: 08/24/19 07:39 Source: patient, EMS, RN notes reviewed, old records reviewed Mode of arrival: EMS Limitations: no limitations - History of Present Illness Initial comments: 63-year-old female presented for evaluation of diarrhea. Patient has had persistent diarrhea for the past 10 days. She was admitted to the hospital with peritonitis and was released approximately 5 days ago. She's had persistent diarrhea since the time of discharge. She states she did have diarrhea while she was admitted. Her abdominal pain is improved. She denies fevers. She is currently on peritoneal dialysis and states she did do a partial session of hemodialysis last night. She has diabetic and currently has an insulin pump. She's had a poor appetite over the past several days as well with nausea and no vomiting. She denies blood in her diarrhea. She states she's having 2 or 3 episodes daily. - Related Data Home Medications Medication Instructions Recorded Confirmed Levothyroxine Sodium [Synthroid] 75 mcg PO DAILY 10/09/16 07/31/19 Pantoprazole [Protonix] 40 mg PO DAILY 10/09/16 07/31/19 Clopidogrel [Plavix] 75 mg PO DAILY 03/11/17 07/31/19 Calcitriol [Rocaltrol] 0.25 mcg PO Q7D 07/27/19 07/31/19 Collagenase [Santyl] 1 applic TOPICAL DAILY 07/27/19 07/31/19 Epoetin Edgardo [Procrit] 4,000 unit SQ MOWEFR 07/27/19 07/31/19 Torsemide [Demadex] 100 mg PO DAILY 07/27/19 07/31/19 Previous Rx's Medication Instructions Recorded Metoprolol Tartrate [Lopressor] 25 mg PO BID #0 tab 11/15/18 Acetaminophen Tab [Tylenol] 650 mg PO Q6HR PRN tab 02/27/19 Calcium Acetate [PhosLo] 667 mg PO TID-W/MEALS cap 02/27/19 Potassium Chloride ER [K-Dur 10] 10 meq PO DAILY tab.er.prt 02/27/19 Pregabalin [Lyrica] 25 mg PO BID #60 cap 08/13/19 Allergies Allergy/AdvReac Type Severity Reaction Status Date / Time gabapentin Allergy Rash/Hives Verified 07/31/19 14:22 morphine Allergy Rash/Hives Verified 08/06/19 12:13 lisinopril AdvReac Cough Verified 07/31/19 14:22 quetiapine [From Seroquel] AdvReac Hallucinati Verified 08/06/19 12:15 ons Review of Systems ROS Statement: Those systems with pertinent positive or pertinent negative responses have been documented in the HPI. ROS Other: All systems not noted in ROS Statement are negative. Past Medical History Past Medical History: Diabetes Mellitus, Dialysis, GERD/Reflux, Hyperlipidemia, Hypertension, Memory Impairment, Renal Disease, Thyroid Disorder Additional Past Medical History / Comment(s): peritoneal dialysis daily over night. hx steel syndrome left hand-please use rt arm/hand for iv, blood draws. diabetic neuropathy and diabetic retinopathy, Rt BKA uses prosthesis. Left heel wound History of Any Multi-Drug Resistant Organisms: ESBL, MRSA, Other MDRO Date of last positivie culture/infection: 06/09/19 ESBL / 2016 MRSA MDRO Source:: MDRO URINE MRSA FOOT ESBL FOOT Past Surgical History: Back Surgery, Hysterectomy Additional Past Surgical History / Comment(s): RBKA 01/23/16 R/T DM. neck cervical 4,5,6 fused. graft tie off 04/05/2017, eye laser surgery for diabetic retinopathy Past Anesthesia/Blood Transfusion Reactions: No Reported Reaction Past Psychological History: Anxiety, Depression Smoking Status: Never smoker Past Alcohol Use History: None Reported Past Drug Use History: None Reported - Past Family History Mother Family Medical History: Diabetes Mellitus, Hypertension Additional Family Medical History / Comment(s): colon ca Father Family Medical History: Myocardial Infarction ([place]) General Exam Limitations: no limitations General appearance: alert, in no apparent distress Head exam: Present: atraumatic, normocephalic Eye exam: Present: normal appearance, PERRL ENT exam: Present: mucous membranes moist Neck exam: Present: normal inspection. Absent: tenderness, meningismus Respiratory exam: Present: normal lung sounds bilaterally, respiratory distress Cardiovascular Exam: Present: regular rate, normal rhythm GI/Abdominal exam: Present: soft, other (Right lower quadrant peritoneal dialysis catheter, clean dry and intact). Absent: distended, tenderness, guarding, rebound, rigid Extremities exam: Present: other (Right [id number] amputation he) Neurological exam: Present: alert, oriented X3, CN II-XII intact. Absent: motor sensory deficit Skin exam: Present: warm, dry, intact. Absent: cyanosis, diaphoretic Course Vital Signs 08/24/19 08/24/19 07:37 08:58 Temperature 98.5 F Pulse Rate 83 79 Respiratory 16 16 Rate Blood Pressure 127/61 115/57 O2 Sat by Pulse 95 96 Oximetry EKG Findings - EKG Comments: EKG Findings:: Normal sinus rhythm, T-wave inversion in V3, no ST segment elevation, rate of 81, SD interval 192, QRS duration 78, QTC 490 Medical Decision Making - Medical Decision Making 63-year-old female presenting for evaluation of diarrhea. No fever, no abdominal pain. Vital signs are stable. Patient has normal white blood cell count 8.8, up trending hemoglobin 11.2. Normal potassium 4.1. Blood sugar is elevated at 399 she does have a insulin pump. Normal CO2 no signs of DKA. L actic acid is 2.0 which is normal. Magnesium 1.4 which is replaced. Patient has had no diarrhea in the emergency department unable to give a stool sample. She states she had taken Imodium at home and this may have resolved or diarrhea. She has no other complaints. She will be discharged home to monitor her symptoms and return with worsening or changing symptoms. - Lab Data Result diagrams: 08/24/19 07:56 08/24/19 07:56 Lab Results 08/24/19 08/24/19 08/24/19 Range/Units 07:53 07:56 07:56 WBC 8.8 (3.8-10.6) k/uL RBC 3.79 L (3.80-5.40) m/uL Hgb 11.2 L (11.4-16.0) gm/dL Hct 35.4 (34.0-46.0) % MCV 93.3 (80.0-100.0) fL MCH 29.6 (25.0-35.0) pg MCHC 31.7 (31.0-37.0) g/dL RDW 17.8 H (11.5-15.5) % Plt Count 328 (150-450) k/uL Neutrophils % 82 % Lymphocytes % 8 % Monocytes % 6 % Eosinophils % 2 % Basophils % 1 % Neutrophils # 7.2 (1.3-7.7) k/uL Lymphocytes # 0.7 L (1.0-4.8) k/uL Monocytes # 0.6 (0-1.0) k/uL Eosinophils # 0.1 (0-0.7) k/uL Basophils # 0.1 (0-0.2) k/uL Hypochromasia Marked Anisocytosis Slight PT 10.8 (9.0-12.0) sec INR 1.0 (<1.2) APTT 24.4 (22.0-30.0) sec Sodium (137-145) mmol/L Potassium (3.5-5.1) mmol/L Chloride (98-107) mmol/L Carbon Dioxide (22-30) mmol/L Anion Gap mmol/L BUN (7-17) mg/dL Creatinine (0.52-1.04) mg/dL Est GFR (CKD-EPI)AfAm (>60 ml/min/1.73 sqM) Est GFR (CKD-EPI)NonAf (>60 ml/min/1.73 sqM) Glucose (74-99) mg/dL POC Glucose (mg/dL) 392 H (75-99) mg/dL POC Glu [employer] Agent ID [place], Mariola Plasma Lactic Acid James (0.7-2.0) mmol/L Calcium (8.4-10.2) mg/dL Phosphorus (2.5-4.5) mg/dL Magnesium (1.6-2.3) mg/dL Total Bilirubin (0.2-1.3) mg/dL AST (14-36) U/L ALT (4-34) U/L Alkaline Phosphatase (38-126) U/L Total Protein (6.3-8.2) g/dL Albumin (3.5-5.0) g/dL 08/24/19 08/24/19 Range/Units 07:56 07:56 WBC (3.8-10.6) k/uL RBC (3.80-5.40) m/uL Hgb (11.4-16.0) gm/dL Hct (34.0-46.0) % MCV (80.0-100.0) fL MCH (25.0-35.0) pg MCHC (31.0-37.0) g/dL RDW (11.5-15.5) % Plt Count (150-450) k/uL Neutrophils % % Lymphocytes % % Monocytes % % Eosinophils % % Basophils % % Neutrophils # (1.3-7.7) k/uL Lymphocytes # (1.0-4.8) k/uL Monocytes # (0-1.0) k/uL Eosinophils # (0-0.7) k/uL Basophils # (0-0.2) k/uL Hypochromasia Anisocytosis PT (9.0-12.0) sec INR (<1.2) APTT (22.0-30.0) sec Sodium 131 L (137-145) mmol/L Potassium 4.1 (3.5-5.1) mmol/L Chloride 95 L (98-107) mmol/L Carbon Dioxide 25 (22-30) mmol/L Anion Gap 11 mmol/L BUN 31 H (7-17) mg/dL Creatinine 9.61 H* (0.52-1.04) mg/dL Est GFR (CKD-EPI)AfAm 4 (>60 ml/min/1.73 sqM) Est GFR (CKD-EPI)NonAf 4 (>60 ml/min/1.73 sqM) Glucose 399 H (74-99) mg/dL POC Glucose (mg/dL) (75-99) mg/dL POC Glu [employer] Agent ID Plasma Lactic Acid James 2.0 (0.7-2.0) mmol/L Calcium 7.2 L (8.4-10.2) mg/dL Phosphorus 4.2 (2.5-4.5) mg/dL Magnesium 1.4 L (1.6-2.3) mg/dL Total Bilirubin 0.5 (0.2-1.3) mg/dL AST 17 (14-36) U/L ALT 12 (4-34) U/L Alkaline Phosphatase 71 (38-126) U/L Total Protein 5.7 L (6.3-8.2) g/dL Albumin 2.6 L (3.5-5.0) g/dL Disposition Clinical Impression: End stage renal disease, Diarrhea Disposition: HOME SELF-CARE Condition: Fair Instructions (If sedation given, give patient instructions): Acute Diarrhea (E D) Is patient prescribed a controlled substance at d/c from ED?: No Referrals: Wilver,Keyur [Primary Care Provider] - 1-2 days Time of Disposition: 09:31
[2019-08-24 08:25] LABS: Partial Thromboplastin Time 24.4 sec (22.0-30.0); Prothrombin Time 10.8 sec (9.0-12.0)
[2019-08-24 08:31] LABS: Anisocytosis Slight; Basophils # (A) 0.1 k/uL (0-0.2); Basophils % (A) 1 %; Eosinophils # (A) 0.1 k/uL (0-0.7); Eosinophils % (A) 2 %; HCT 35.4 % (34.0-46.0); HGB 11.2 gm/dL (11.4-16.0); Hypochromasia Marked; Lymphocytes # (A) 0.7 k/uL (1.0-4.8); Lymphocytes % (A) 8 %; MCH 29.6 pg (25.0-35.0); MCHC 31.7 g/dL (31.0-37.0); MCV 93.3 fL (80.0-100.0); Mean Platelet Volume 10.4; Monocytes # (A) 0.6 k/uL (0-1.0); Monocytes % (A) 6 %; Neutrophils # (A) 7.2 k/uL (1.3-7.7); Neutrophils % (A) 82 %; Platelet Count 328 k/uL (150-450); RBC 3.79 m/uL (3.80-5.40); RDW 17.8 % (11.5-15.5); WBC 8.8 k/uL (3.8-10.6)
[2019-08-24 08:33] LABS: Albumin 2.6 g/dL (3.5-5.0); Calcium 7.2 mg/dL (8.4-10.2); Magnesium 1.4 mg/dL (1.6-2.3); Phosphorus 4.2 mg/dL (2.5-4.5); Potassium 4.1 mmol/L (3.5-5.1); Total Bilirubin 0.5 mg/dL (0.2-1.3); Total Protein 5.7 g/dL (6.3-8.2)
[2019-08-24] MEDS ORDERED: MAGNESIUM SULFATE-D5W PMX 1 GM in DEXTROSE/WATER 1 100ML.BAG IVPB ONE (09:22)
[2019-08-24 10:38] VITALS: BP 118/70; PULSE 77; RESP 18
== END 2019-08-24 10:37 | disposition home or self-care (01) ==
LOC: EC 07:35
DX: I12.0 Hypertensive chronic kidney disease with stage 5 chronic kidney disease or end stage renal disease (principal); E11.22 Type 2 diabetes mellitus with diabetic chronic kidney disease; N18.6 End stage renal disease; R19.7 Diarrhea, unspecified; E86.0 Dehydration; E11.65 Type 2 diabetes mellitus with hyperglycemia; E11.40 Type 2 diabetes mellitus with diabetic neuropathy, unspecified; K21.9 Gastro-esophageal reflux disease without esophagitis; E07.9 Disorder of thyroid, unspecified; Z99.2 Dependence on renal dialysis; Z86.14 Personal history of Methicillin resistant Staphylococcus aureus infection; Z89.511 Acquired absence of right leg below knee; Z79.890 Hormone replacement therapy; Z79.02 Long term (current) use of antithrombotics/antiplatelets; Z79.899 Other long term (current) drug therapy; Z88.8 Allergy status to other drugs, medicaments and biological substances; Z88.5 Allergy status to narcotic agent
CPT/HCPCS: 36415; 93005; 80053; 83735; 84100; 85025; 83605; 85610; 85730; 99285; 96365; J3475

== ENCOUNTER 2019-08-26 17:31 | Inpatient (IN) | payer MEDICARE ==
[2019-08-26 18:43] LABS: Anisocytosis Slight; Basophils % (A) 1 %; Eosinophils # (A) 0.2 k/uL (0-0.7); Eosinophils % (A) 3 %; HCT 40.4 % (34.0-46.0); HGB 12.5 gm/dL (11.4-16.0); Hypochromasia Marked; Lymphocytes # (A) 0.7 k/uL (1.0-4.8); Lymphocytes % (A) 7 %; MCH 29.9 pg (25.0-35.0); MCHC 30.9 g/dL (31.0-37.0); MCV 96.7 fL (80.0-100.0); Macrocytosis Slight; Mean Platelet Volume 9.9; Monocytes # (A) 0.5 k/uL (0-1.0); Monocytes % (A) 5 %; Neutrophils # (A) 7.8 k/uL (1.3-7.7); Neutrophils % (A) 84 %; Platelet Count 277 k/uL (150-450); RBC 4.18 m/uL (3.80-5.40); RDW 17.9 % (11.5-15.5); WBC 9.3 k/uL (3.8-10.6)
[2019-08-26 18:57] LABS: ALT 13 U/L (4-34); AST 27 U/L (14-36); African American GFR (CKD) 4 (>60 ml/min/1.73 sqM); Albumin 2.8 g/dL (3.5-5.0); Alkaline Phosphatase 87 U/L (38-126); Amylase <30 U/L (30-110); Anion Gap 12 mmol/L; Blood Urea Nitrogen 29 mg/dL (7-17); Calcium 7.3 mg/dL (8.4-10.2); Carbon Dioxide 27 mmol/L (22-30); Chloride 94 mmol/L (98-107); Glucose 103 mg/dL (74-99); Non-African American GFR(CKD) 4 (>60 ml/min/1.73 sqM); Sodium 133 mmol/L (137-145); Total Bilirubin 0.5 mg/dL (0.2-1.3); Total Protein 6.2 g/dL (6.3-8.2)
--- NOTE | 2019-08-26 19:40 | ED ---
Abdominal Pain HPI - General Chief Complaint: Abdominal Pain Stated Complaint: Abd Pain Time Seen by Provider: 08/26/19 17:48 Source: patient Mode of arrival: ambulatory Limitations: no limitations - History of Present Illness Initial Comments: 63-year-old female significant cord Nely's including diabetes right BKA, end stage renal disease on peritoneal dialysis presenting today for cc of intractable abdominal pain. Patient states that she has had intractable dull pain she concerned she has peritonitis. Patient states has not gone away and has been present for the past 5 days she denies fevers she has chest pain shortness of breath or radiation to the back. Patient states is near the site of the catheter where it and has seen most pain. Patient said she has had diarrhea denies vomiting. Patient notes a slight nausea. Patient states it more right sided than left. Patient has no additional complaints on arrival she is tearful. - Related Data Home Medications Medication Instructions Recorded Confirmed Levothyroxine Sodium [Synthroid] 75 mcg PO DAILY 10/09/16 07/31/19 Pantoprazole [Protonix] 40 mg PO DAILY 10/09/16 07/31/19 Clopidogrel [Plavix] 75 mg PO DAILY 03/11/17 07/31/19 Calcitriol [Rocaltrol] 0.25 mcg PO Q7D 07/27/19 07/31/19 Collagenase [Santyl] 1 applic TOPICAL DAILY 07/27/19 07/31/19 Epoetin Edgardo [Procrit] 4,000 unit SQ MOWEFR 07/27/19 07/31/19 Torsemide [Demadex] 100 mg PO DAILY 07/27/19 07/31/19 Previous Rx's Medication Instructions Recorded Metoprolol Tartrate [Lopressor] 25 mg PO BID #0 tab 11/15/18 Acetaminophen Tab [Tylenol] 650 mg PO Q6HR PRN tab 02/27/19 Calcium Acetate [PhosLo] 667 mg PO TID-W/MEALS cap 02/27/19 Potassium Chloride ER [K-Dur 10] 10 meq PO DAILY tab.er.prt 02/27/19 Pregabalin [Lyrica] 25 mg PO BID #60 cap 08/13/19 Allergies Allergy/AdvReac Type Severity Reaction Status Date / Time gabapentin Allergy Rash/Hives Verified 08/26/19 17:40 morphine Allergy Rash/Hives Verified 08/26/19 17:40 lisinopril AdvReac Cough Verified 08/26/19 17:40 quetiapine [From Seroquel] AdvReac Hallucinati Verified 08/26/19 17:40 ons Review of Systems ROS Statement: Those systems with pertinent positive or pertinent negative responses have been documented in the HPI. ROS Other: All systems not noted in ROS Statement are negative. Past Medical History Past Medical History: Diabetes Mellitus, Dialysis, GERD/Reflux, Hyperlipidemia, Hypertension, Memory Impairment, Renal Disease, Thyroid Disorder Additional Past Medical History / Comment(s): peritoneal dialysis daily over night. hx steel syndrome left hand-please use rt arm/hand for iv, blood draws. diabetic neuropathy and diabetic retinopathy, Rt BKA uses prosthesis. Left heel wound History of Any Multi-Drug Resistant Organisms: ESBL, MRSA, Other MDRO Date of last positivie culture/infection: 06/09/19 ESBL / 2016 MRSA MDRO Source:: MDRO URINE MRSA FOOT ESBL FOOT Past Surgical History: Back Surgery, Hysterectomy Additional Past Surgical History / Comment(s): RBKA 01/23/16 R/T DM. neck cervical 4,5,6 fused. graft tie off 04/05/2017, eye laser surgery for diabetic retinopathy Past Anesthesia/Blood Transfusion Reactions: No Reported Reaction Past Psychological History: Anxiety, Depression Smoking Status: Never smoker Past Alcohol Use History: None Reported Past Drug Use History: None Reported - Past Family History Mother Family Medical History: Diabetes Mellitus, Hypertension Additional Family Medical History / Comment(s): colon ca Father Family Medical History: Myocardial Infarction ([place]) General Exam - General Exam Comments Initial Comments: General: The patient is awake and alert, tearful, morbidly obese Eye: +3 mm pupils are equal, round and reactive to light, extra-ocular movements are intact. No nystagmus. There is normal conjunctiva bilaterally. No signs of icterus. Ears, nose, mouth and throat: There are moist mucous membranes and no oral lesions. Neck: The neck is supple, there is no tenderness or JVD. Cardiovascular: There is a regular rate and rhythm. No murmur, rub or gallop is appreciated. Respiratory: Lungs are clear to auscultation, respirations are non-labored, br eath sounds are equal. No wheezes, stridor, rales, or rhonchi. Gastrointestinal: Distended, diffusely tender abdomen without masses or organomegaly noted. There is some rebound tenderness. Musculoskeletal: Normal ROM, no tenderness. Strength 5/5. Sensation intact. Diminshed left pulses DP but present. Right BKA. Neurological: A&O x 3. CN II-XII intact grossly, There are no obvious motor or sensory deficits. Coordination appears grossly intact. Speech is normal. Skin: Skin is warm and dry and no rashes or lesions are noted. Psychiatric: Cooperative, appropriate mood & affect, normal judgment. Limitations: no limitations Course Vital Signs 08/26/19 08/26/19 17:41 19:42 Temperature 99.0 F Pulse Rate 81 78 Respiratory 18 20 Rate Blood Pressure 121/67 121/56 O2 Sat by Pulse 97 98 Oximetry Medical Decision Making - Medical Decision Making 63-year-old female who performs peritoneal dialysis nightly presenting for possible peritonitis. No fevers but admits to chills. Patient is diffuse abdominal pain however appears slightly increased near the site of the catheter. There is no redness at the site. No fevers recorded. Afebrile on arrival. No leukocytosis however patient's pain is intractable she is very tearful. Will admit patient to r/o peritonitis/intractable pain. Patient is agreeable to admission. - Lab Data Result diagrams: 08/26/19 18:32 08/26/19 18:32 Lab Results 08/26/19 08/26/19 08/26/19 Range/Units 18:32 18:32 18:32 WBC 9.3 (3.8-10.6) k/uL RBC 4.18 (3.80-5.40) m/uL Hgb 12.5 (11.4-16.0) gm/dL Hct 40.4 (34.0-46.0) % MCV 96.7 (80.0-100.0) fL MCH 29.9 (25.0-35.0) pg MCHC 30.9 L (31.0-37.0) g/dL RDW 17.9 H (11.5-15.5) % Plt Count 277 (150-450) k/uL Neutrophils % 84 % Lymphocytes % 7 % Monocytes % 5 % Eosinophils % 3 % Basophils % 1 % Neutrophils # 7.8 H (1.3-7.7) k/uL Lymphocytes # 0.7 L (1.0-4.8) k/uL Monocytes # 0.5 (0-1.0) k/uL Eosinophils # 0.2 (0-0.7) k/uL Basophils # 0.0 (0-0.2) k/uL Hypochromasia Marked Anisocytosis Slight Macrocytosis Slight Sodium 133 L (137-145) mmol/L Potassium 4.0 (3.5-5.1) mmol/L Chloride 94 L (98-107) mmol/L Carbon Dioxide 27 (22-30) mmol/L Anion Gap 12 mmol/L BUN 29 H (7-17) mg/dL Creatinine 9.50 H* (0.52-1.04) mg/dL Est GFR (CKD-EPI)AfAm 4 (>60 ml/min/1.73 sqM) Est GFR (CKD-EPI)NonAf 4 (>60 ml/min/1.73 sqM) Glucose 103 H (74-99) mg/dL Plasma Lactic Acid James 1.8 (0.7-2.0) mmol/L Calcium 7.3 L (8.4-10.2) mg/dL Total Bilirubin 0.5 (0.2-1.3) mg/dL AST 27 (14-36) U/L ALT 13 (4-34) U/L Alkaline Phosphatase 87 (38-126) U/L Total Protein 6.2 L (6.3-8.2) g/dL Albumin 2.8 L (3.5-5.0) g/dL Amylase <30 L (30-110) U/L Lipase 21 L (23-300) U/L Urine Color Urine Appearance (Clear) Urine pH (5.0-8.0) Ur Specific Jeffrey (1.001-1.035) Urine Protein (Negative) Urine Glucose (UA) (Negative) Urine Ketones (Negative) Urine Blood (Negative) Urine Nitrite (Negative) Urine Bilirubin (Negative) Urine Urobilinogen (<2.0) mg/dL Ur Leukocyte Esterase (Negative) Urine RBC (0-5) /hpf Urine WBC (0-5) /hpf Urine WBC Clumps (None) /hpf Ur Squamous Epith Cells (0-4) /hpf Amorphous Sediment (None) /hpf Urine Bacteria (None) /hpf Hyaline Casts (0-2) /lpf Urine Mucus (None) /hpf 04/28/20 Range/Units 19:43 WBC (3.8-10.6) k/uL RBC (3.80-5.40) m/uL Hgb (11.4-16.0) gm/dL Hct (34.0-46.0) % MCV (80.0-100.0) fL MCH (25.0-35.0) pg MCHC (31.0-37.0) g/dL RDW (11.5-15.5) % Plt Count (150-450) k/uL Neutrophils % % Lymphocytes % % Monocytes % % Eosinophils % % Basophils % % Neutrophils # (1.3-7.7) k/uL Lymphocytes # (1.0-4.8) k/uL Monocytes # (0-1.0) k/uL Eosinophils # (0-0.7) k/uL Basophils # (0-0.2) k/uL Hypochromasia Anisocytosis Macrocytosis Sodium (137-145) mmol/L Potassium (3.5-5.1) mmol/L Chloride (98-107) mmol/L Carbon Dioxide (22-30) mmol/L Anion Gap mmol/L BUN (7-17) mg/dL Creatinine (0.52-1.04) mg/dL Est GFR (CKD-EPI)AfAm (>60 ml/min/1.73 sqM) Est GFR (CKD-EPI)NonAf (>60 ml/min/1.73 sqM) Glucose (74-99) mg/dL Plasma Lactic Acid James (0.7-2.0) mmol/L Calcium (8.4-10.2) mg/dL Total Bilirubin (0.2-1.3) mg/dL AST (14-36) U/L ALT (4-34) U/L Alkaline Phosphatase (38-126) U/L Total Protein (6.3-8.2) g/dL Albumin (3.5-5.0) g/dL Amylase (30-110) U/L Lipase (23-300) U/L Urine Color Light Red Urine Appearance Turbid H (Clear) Urine pH 5.5 (5.0-8.0) Ur Specific Jeffrey 1.021 (1.001-1.035) Urine Protein 2+ H (Negative) Urine Glucose (UA) Negative (Negative) Urine Ketones Negative (Negative) Urine Blood Moderate H (Negative) Urine Nitrite Negative (Negative) Urine Bilirubin Negative (Negative) Urine Urobilinogen <2.0 (<2.0) mg/dL Ur Leukocyte Esterase Large H (Negative) Urine RBC 137 H (0-5) /hpf Urine WBC >182 H (0-5) /hpf Urine WBC Clumps Many H (None) /hpf Ur Squamous Epith Cells 31 H (0-4) /hpf Amorphous Sediment Occasional H (None) /hpf Urine Bacteria Many H (None) /hpf Hyaline Casts 26 H (0-2) /lpf Urine Mucus Rare H (None) /hpf Disposition Clinical Impression: Intractable abdominal pain, End stage renal disease, Hypocalcemia Disposition: ADMITTED IP TO THIS [facility] Condition: Stable Is patient prescribed a controlled substance at d/c from ED?: No Referrals: Keyur Pettit [Primary Care Provider] - 1-2 days Time of Disposition: 19:59 Decision to Admit Reason: Admit from EC Decision Date: 08/26/19 Decision Time: 20:00
--- NOTE | 2019-08-26 19:44 | CT ---
EXAMINATION TYPE: CT abdomen pelvis wo con DATE OF EXAM: 08/26/2019 HISTORY: abdominal pain right lower quadrant. CT DLP: 1542.6 mGycm. Automated Exposure Control for Dose Reduction was Utilized. TECHNIQUE: CT scan of the abdomen and pelvis is performed without oral or IV contrast. COMPARISON: CT abdomen and pelvis July 27, 2019 and November 08, 2018 FINDINGS: Within the limitations of a non-contrast study, the following observations are made. LUNG BASES: Trace left pleural effusion redemonstrated. Tiny pericardial effusion on current study. LIVER/GB: No significant abnormality is appreciated. PANCREAS: No significant abnormality is seen. SPLEEN: No significant abnormality is seen. ADRENALS: No significant abnormality is seen. KIDNEYS: Cortical thinning and diminished size to both kidneys redemonstrated. Peritoneal dialysis ca theter right abdomen redemonstrated. Catheter tip terminates right pelvis axial image 61 slightly yasmine nged in position from prior study. Scattered pneumoperitoneum again seen which is nonspecific in kelvin ent with peritoneal dialysis catheter. No significant ascites currently. BOWEL: Suboptimal evaluation of bowel without enteric contrast. No suspicious small or large bowel di latation. Appendix is not dilated from base of cecum. Trace fluid right infracolic gutter nonspecific finding. GENITAL ORGANS: Uterus surgically absent or atrophic. LYMPH NODES: No greater than 1cm abdominal or pelvic lymph nodes are appreciated. OSSEOUS STRUCTURES: Facet arthropathy lower lumbar levels. OTHER: Mild soft tissue anasarca greatest on the right redemonstrated unchanged from prior. Mild to m oderate calcified plaque of aorta extends into branch vessels. IMPRESSION: No suspicious new or acute finding clearly seen.
[2019-08-26] MEDS ORDERED: HYDROmorphone 0.5 MG/0.5 ML SYRINGE IVP STA (19:47)
[2019-08-26] MEDS ORDERED: NALOXONE 0.4 MG/ML 1 ML VIAL IV PRN (20:01)
[2019-08-26 20:04] LABS: Amorphous Sediment,Urine Occasional /hpf; Appearance,Urine Turbid (Clear); Bacteria,Urine Many /hpf; Bilirubin,Urine Negative (Negative); Blood,Urine Moderate (Negative); Color,Urine Light Red; Glucose,Urine (UA) Negative (Negative); Hyaline Casts,Urine 26 /lpf (0-2); Ketones,Urine Negative (Negative); Leukocyte Esterase,Urine Large (Negative); Mucus,Urine Rare /hpf; Nitrite,Urine Negative (Negative); PH, Urine 5.5 (5.0-8.0); Protein,Urine 2+ (Negative); RBC,Urine 137 /hpf (0-5); Specific Gravity,Urine 1.021 (1.001-1.035); Squamous Epithelial Cell,Urine 31 /hpf (0-4); Urobilinogen,Urine <2.0 mg/dL (<2.0); WBC,Urine >182 /hpf (0-5)
[2019-08-26] MEDS ORDERED: cefTRIAXone IN SWFI 1,000 MG/10 ML SYRINGE IVP STA (20:23)
[2019-08-26 22:58] LABS: Glucose,Whole Blood 76 mg/dL (75-99)
[2019-08-26] MEDS: HYDROmorphone 0.5 MG/0.5 ML SYRINGE IVP PRN (23:51)
[2019-08-27] MEDS ORDERED: VANCOMYCIN IV PER PHARMACY 1 EACH MISC MISCELLANE PRN (00:43)
--- NOTE | 2019-08-27 01:19 | P.HPIM ---
History of Present Illness H&P Date: 08/26/19 Chief Complaint: abd pain 64 year old female with ESRD on PD. hypertension , DM patient comes in today for abd pain of 5 days duration . described as pain sharp in natures worse with movement , pain 6/10 radiates to the rest of the belly, starts around the PD cath. associated with alternating diarrhea and constipation , no GI bleeding, denies any nausea, but had one episode of vomiting today with no bleeding non bilious. denies any fever, chills, chest pain or trouble breathing. she reports history of peritonitis twice in the past. she came to the ED 2 days ago but was discharged. she was recently hospitalized for acute metabolic encephalopathy. she currently feels comfortable, pain controlled with dilaudid. she claims compliance with nightly PD. in the ED she was found to have stable vital signs, no fever, no leukocytosis. CT abd , no acute process admitted to rule out possible Peritonitits Review of Systems Pertinent positives as noted in HPI. All other systems were reviewed and are negative Past Medical History Past Medical History: Diabetes Mellitus, Dialysis, GERD/Reflux, Hyperlipidemia, Hypertension, Memory Impairment, Renal Disease, Thyroid Disorder Additional Past Medical History / Comment(s): peritoneal dialysis daily over night. hx steel syndrome left hand-please use rt arm/hand for iv, blood draws. diabetic neuropathy and diabetic retinopathy, Rt BKA uses prosthesis. Left heel wound History of Any Multi-Drug Resistant Organisms: ESBL, MRSA, Other MDRO Date of last positivie culture/infection: 06/09/19 ESBL / 2016 MRSA MDRO Source:: MDRO URINE MRSA FOOT ESBL FOOT Past Surgical History: Back Surgery, Hysterectomy Additional Past Surgical History / Comment(s): RBKA 01/23/16 R/T DM. neck cervical 4,5,6 fused. graft tie off 04/05/2017, eye laser surgery for diabetic retinopathy Past Anesthesia/Blood Transfusion Reactions: No Reported Reaction Past Psychological History: Anxiety, Depression Smoking Status: Never smoker Past Alcohol Use History: None Reported Past Drug Use History: None Reported - Past Family History Mother Family Medical History: Diabetes Mellitus, Hypertension Additional Family Medical History / Comment(s): colon ca Father Family Medical History: Myocardial Infarction ([place]) Medications and Allergies Home Medications Medication Instructions Recorded Confirmed Type Levothyroxine Sodium [Synthroid] 75 mcg PO DAILY 10/09/16 08/26/19 History Pantoprazole [Protonix] 40 mg PO DAILY 10/09/16 08/26/19 History Clopidogrel [Plavix] 75 mg PO DAILY 03/11/17 08/26/19 History Metoprolol Tartrate [Lopressor] 25 mg PO BID #0 tab 11/15/18 08/26/19 Rx Acetaminophen Tab [Tylenol] 650 mg PO Q6HR PRN tab 02/27/19 08/26/19 Rx Calcium Acetate [PhosLo] 667 mg PO TID-W/MEALS cap 02/27/19 08/26/19 Rx Potassium Chloride ER [K-Dur 10] 10 meq PO DAILY tab.er.prt 02/27/19 08/26/19 Rx Calcitriol [Rocaltrol] 0.25 mcg PO Q7D 07/27/19 08/26/19 History Collagenase [Santyl] 1 applic TOPICAL DAILY 07/27/19 08/26/19 History Epoetin Edgardo [Procrit] 4,000 unit SQ MOWEFR 07/27/19 08/26/19 History Torsemide [Demadex] 100 mg PO DAILY 07/27/19 08/26/19 History Pregabalin [Lyrica] 25 mg PO BID #60 cap 08/13/19 08/26/19 Rx Allergies Allergy/AdvReac Type Severity Reaction Status Date / Time gabapentin Allergy Rash/Hives Verified 08/26/19 22:55 morphine Allergy Rash/Hives Verified 08/26/19 22:55 escitalopram [From Lexapro] AdvReac Hallucinati Verified 08/26/19 23:25 ons lisinopril AdvReac Cough Verified 08/26/19 22:55 quetiapine [From Seroquel] AdvReac Hallucinati Verified 08/26/19 22:55 ons Physical Exam Vitals: Vital Signs Temp Pulse Resp BP Pulse Ox 08/26/19 21:30 98.0 F 79 18 110/59 97 08/26/19 20:27 83 18 123/68 93 L 08/26/19 19:42 78 20 121/56 98 08/26/19 17:41 99.0 F 81 18 121/67 97 Intake and Output 08/26/19 08/26/19 08/27/19 14:59 22:59 06:59 Other: Weight 107.774 kg Constitutional: No acute distress, conversant, pleasant Eyes: Anicteric sclerae, moist conjunctiva, no lid-lag Pupils equal round reactive to light ENMT: NC/AT Oropharynx clear, no erythema, exudates Neck: Supple, FROM, no masses, or JVD No carotid bruits No thyromegaly Lungs: Clear to auscultation Clear to percussion Normal respiratory effort, no accessory muscle use Cardiovascular: Heart regular in rate and rhythm, No murmurs, gallops, or rubs No peripheral edema Abdominal: Diffuse tenderness to palpation of the abdomen, Soft, no guarding, rebound or rigidity PD in place, no skin changes, no drainage Abdomen moving with respiration Normoactive bowel sounds No hepatomegaly, No splenomegaly No palpable mass No abdominal wall hernia noted Skin: Stage IV ulcer over the left heel, no induration nor erythema no drainage. Superficial stage II ulcers 1 x 1 cm multiple and bilateral shoulders Otherwise Normal temperature, tone, texture, turgor No induration No subcutaneous nodules Extremities: Right BKA No digital cyanosis No clubbing Radial pulses intact and symmetrical No calf tenderness Psychiatric: Alert and oriented to person, place and time Appropriate affect fair judgment Neuro Muscles Strength 4/5 in all 4 extremities Sensation to light touch grossly present throughout Cranial nerves II-XII grossly intact No focal sensory deficits Lymphatics: no palpable cervical or supraclavicular , or inguinal lymph nodes Results CBC & Chem 7: 08/26/19 18:32 08/26/19 18:32 Labs: Abnormal Lab Results - Last 24 Hours (Table) 08/26/19 08/26/19 08/26/19 Range/Units 18:32 18:32 19:43 MCHC 30.9 L (31.0-37.0) g/dL RDW 17.9 H (11.5-15.5) % Neutrophils # 7.8 H (1.3-7.7) k/uL Lymphocytes # 0.7 L (1.0-4.8) k/uL Sodium 133 L (137-145) mmol/L Chloride 94 L (98-107) mmol/L BUN 29 H (7-17) mg/dL Creatinine 9.50 H* (0.52-1.04) mg/dL Glucose 103 H (74-99) mg/dL Calcium 7.3 L (8.4-10.2) mg/dL Total Protein 6.2 L (6.3-8.2) g/dL Albumin 2.8 L (3.5-5.0) g/dL Amylase <30 L (30-110) U/L Lipase 21 L (23-300) U/L Urine Appearance Turbid H (Clear) Urine Protein 2+ H (Negative) Urine Blood Moderate H (Negative) Ur Leukocyte Esterase Large H (Negative) Urine RBC 137 H (0-5) /hpf Urine WBC >182 H (0-5) /hpf Urine WBC Clumps Many H (None) /hpf Ur Squamous Epith Cells 31 H (0-4) /hpf Amorphous Sediment Occasional H (None) /hpf Urine Bacteria Many H (None) /hpf Hyaline Casts 26 H (0-2) /lpf Urine Mucus Rare H (None) /hpf Assessment and Plan Assessment: 64-year-old female with end-stage renal disease on peritoneal dialysis, hypertension, diabetes with insulin pump. Comes in due to abdominal pain of 5 days' duration admitted to rule out PD peritonitis, anticipated length of stay more than 2 midnights abd pain rule out peritonitis with PD follow up cultures peritoneal fluid culture and gram stain monitor vital sings tylenol for fever. empiric ABx with vanco and rocephine preferred through dialysate with 6 hr dwelling , paged nephro await call back , otherwise will start IV CT abd no acute process. chronic conditions DM, , hold insulin pump, continue with insulin sliding scale Hypertension , resume home meds Left heel ulcer, stage IV, continue with santyl hyperlipidemia Preformed a thorough record review from recent hospitalization for acute metabolic encephalopathy CODE STATUS:full code DVT prophylaxis: heparin sc tid Discussed with: Patient, ER, RN Anticipated length of stay > than [address]: home A total of 70 minutes was spent on the care of this complex patient more than 50% of the time was spent in counseling and care coordination.
[2019-08-27] MEDS ORDERED: VANCOMYCIN 1,500 MG in SODIUM CHLORIDE 0.9% 250 ML IVPB ONE (02:00)
[2019-08-27 02:40] LABS: Glucose,Whole Blood 116 mg/dL (75-99)
[2019-08-27] MEDS: DIALYSIS (PERIT 2.5%) 2,000 ML 50 G/2,000 ML BAG INTRAPERIT SCH ×4 (03:18→22:01)
[2019-08-27] MEDS: LEVOTHYROXINE 75 MCG TAB PO SCH (06:00)
[2019-08-27] MEDS: HYDROmorphone 0.5 MG/0.5 ML SYRINGE IVP PRN ×4 (06:09→22:01)
[2019-08-27] MEDS: ONDANSETRON 4 MG/2 ML VIAL IVP PRN (06:15)
[2019-08-27 07:03] LABS: Glucose,Whole Blood 253 mg/dL (75-99)
[2019-08-27] MEDS: PREGABALIN 25 MG CAP PO SCH ×2 (07:58→22:02)
--- NOTE | 2019-08-27 08:00 | P.NPCON ---
History of Present Illness - Reason for Consult end stage renal disease - History of Present Illness Reason for consultation: End-stage renal disease History of present illness: Patient is a 64-year-old female seen in renal consultation for end-stage renal disease. She is maintained on peritoneal dialysis. Patient presented to the hospital with abdominal pain. She denies any fever. She did have an episode of vomiting yesterday and today. She denies cloudy dialysate. No chest pain or shortness of breath. Her weight is stable. She received IV vancomycin and Rocephin in the ER yesterday. She will be drained at 9 AM and fluid will be sent for cell count and culture. Hemodynamically stable. CAT scan of the abdomen and pelvis revealed no acute changes. Patient did have peritonitis in June 2019 with fluid culture positive for staph epidermidis and Proteus mirabilis which was treated with intraperitoneal vancomycin and Fortaz. Hemoglobin is at goal. Coronavirus testing negative. UA suggestive of UTI. Vital signs are stable. General: The patient appeared well nourished and normally developed. HEENT: Head exam is unremarkable. Neck is without jugular venous distension. LUNGS: Lungs are clear to auscultation and percussion. Breath sounds decreased. HEART: Rate and Rhythm are regular. ABDOMEN: Soft. Generalized tenderness. EXTREMITITES: Trace edema. BKA noted. Past Medical History Past Medical History: Diabetes Mellitus, Dialysis, GERD/Reflux, Hyperlipidemia, Hypertension, Memory Impairment, Renal Disease, Thyroid Disorder Additional Past Medical History / Comment(s): peritoneal dialysis daily over night. hx steel syndrome left hand-please use rt arm/hand for iv, blood draws. diabetic neuropathy and diabetic retinopathy, Rt BKA uses prosthesis. Left heel wound History of Any Multi-Drug Resistant Organisms: ESBL, MRSA, Other MDRO Date of last positivie culture/infection: 06/09/19 ESBL / 2016 MRSA MDRO Source:: MDRO URINE MRSA FOOT ESBL FOOT Past Surgical History: Back Surgery, Hysterectomy Additional Past Surgical History / Comment(s): RBKA 01/23/16 R/T DM. neck cervic al 4,5,6 fused. graft tie off 04/05/2017, eye laser surgery for diabetic retinopathy Past Anesthesia/Blood Transfusion Reactions: No Reported Reaction Past Psychological History: Anxiety, Depression Smoking Status: Never smoker Past Alcohol Use History: None Reported Past Drug Use History: None Reported - Past Family History Mother Family Medical History: Diabetes Mellitus, Hypertension Additional Family Medical History / Comment(s): colon ca Father Family Medical History: Myocardial Infarction ([place]) Medications and Allergies Home Medications Medication Instructions Recorded Confirmed Type Levothyroxine Sodium [Synthroid] 75 mcg PO DAILY 10/09/16 08/26/19 History Pantoprazole [Protonix] 40 mg PO DAILY 10/09/16 08/26/19 History Clopidogrel [Plavix] 75 mg PO DAILY 03/11/17 08/26/19 History Metoprolol Tartrate [Lopressor] 25 mg PO BID #0 tab 11/15/18 08/26/19 Rx Acetaminophen Tab [Tylenol] 650 mg PO Q6HR PRN tab 02/27/19 08/26/19 Rx Calcium Acetate [PhosLo] 667 mg PO TID-W/MEALS cap 02/27/19 08/26/19 Rx Potassium Chloride ER [K-Dur 10] 10 meq PO DAILY tab.er.prt 02/27/19 08/26/19 Rx Calcitriol [Rocaltrol] 0.25 mcg PO Q7D 07/27/19 08/26/19 History Collagenase [Santyl] 1 applic TOPICAL DAILY 07/27/19 08/26/19 History Epoetin Edgardo [Procrit] 4,000 unit SQ MOWEFR 07/27/19 08/26/19 History Torsemide [Demadex] 100 mg PO DAILY 07/27/19 08/26/19 History Pregabalin [Lyrica] 25 mg PO BID #60 cap 08/13/19 08/26/19 Rx Allergies Allergy/AdvReac Type Severity Reaction Status Date / Time gabapentin Allergy Rash/Hives Verified 08/26/19 22:55 morphine Allergy Rash/Hives Verified 08/26/19 22:55 escitalopram [From Lexapro] AdvReac Hallucinati Verified 08/26/19 23:25 ons lisinopril AdvReac Cough Verified 08/26/19 22:55 quetiapine [From Seroquel] AdvReac Hallucinati Verified 08/26/19 22:55 ons Physical Exam Vitals: Vital Signs Temp Pulse Pulse Pulse Resp BP BP 08/27/19 05:00 99.3 F 82 18 109/66 08/27/19 04:03 78 17 116/55 08/27/19 03:00 99 F 81 16 104/50 08/26/19 23:26 98.4 F 80 18 125/74 08/26/19 21:30 98.0 F 79 18 110/59 08/26/19 20:27 83 18 123/68 08/26/19 19:42 78 20 121/56 08/26/19 17:41 99.0 F 81 18 121/67 Pulse Ox 08/27/19 05:00 100 08/27/19 04:03 100 08/27/19 03:00 96 08/26/19 23:26 95 08/26/19 21:30 97 08/26/19 20:27 93 L 08/26/19 19:42 98 08/26/19 17:41 97 Intake and Output 08/26/19 08/27/19 08/27/19 22:59 06:59 14:59 Intake Total 550 Balance 550 Intake: Intake, IV Titration 250 Amount Vancomycin 1,500 mg In 250 Sodium Chloride 0.9% 250 ml @ 125 mls/hr IVPB ONCE ONE Rx#:[id number] Oral 300 Other: Voiding Method Bedside Commode Diaper Weight 107.5 kg Results - Lab Results Most recent lab results Calcium 7.3 mg/dL (8.4-10.2) L 08/26/19 18:32 08/26/19 18:32 08/26/19 18:32 Assessment and Plan Plan: Assessment: 1. End-stage renal disease maintained on peritoneal dialysis. 2. Abdominal pain. Concern for peritonitis. CAT scan of the abdomen and pelvis revealed no acute changes. 3. Insulin-dependent diabetes mellitus. 4. Chronic kidney disease mineral bone disease maintained on calcitriol and PhosLo outpatient. 5. Anemia of chronic kidney disease. Hemoglobin currently at goal. Plan: Maintain 2 L exchanges every 6 hours with 2.5% dextrose solution. Check dialysate for cell count, culture and Gram stain. I will give her dose of intraperitoneal vancomycin and Fortaz with the next exchange. Check phosphorus level. Thank you for the consultation. I will continue to follow the patient with you during her hospital stay.
[2019-08-27] MEDS: CLOPIDOGREL 75 MG TAB PO SCH (08:02)
[2019-08-27] MEDS: PANTOPRAZOLE 40 MG TABLET PO SCH (08:02)
[2019-08-27] MEDS: METOPROLOL TARTRATE 25 MG TAB PO SCH ×3 (08:02→21:52)
[2019-08-27] MEDS: HEPARIN SODIUM,PORCINE 5,000 UNIT/ML 1 ML VIAL SQ SCH ×2 (08:02→18:17)
[2019-08-27] MEDS: INSULIN ASPART (NovoLOG) 100 UNIT/ML VIAL SQ SCH ×4 (08:02→22:01)
[2019-08-27] MEDS: FUROSEMIDE 40 MG TAB PO SCH (08:04)
[2019-08-27] MEDS ORDERED: COLLAGENASE 250 UNIT/GM OINTMENT 30 GM TUBE TOPICAL SCH (09:00)
[2019-08-27] MEDS ORDERED: DIALYSIS DEX INTRAPERIT ONE (09:00)
[2019-08-27] MEDS ORDERED: CEFTAZIDIME INTRAPERIT ONE (09:00)
[2019-08-27] MEDS ORDERED: VANCOMYCIN INTRAPERIT ONE (09:00)
[2019-08-27 11:04] LABS: Glucose,Whole Blood 199 mg/dL (75-99)
--- NOTE | 2019-08-27 13:26 | P.PN ---
Subjective Progress Note Date: 08/27/19 Principal diagnosis: Abdominal pain Patient still having severe abdominal pain. Associated with that she has nausea and vomiting as well. No fevers or chills. Objective - Vital Signs Vital signs: Vital Signs Temp 99.3 F 08/27/19 05:00 Pulse 78 08/27/19 08:11 Resp 18 08/27/19 08:11 BP 108/53 08/27/19 08:11 Pulse Ox 100 08/27/19 08:11 Intake & Output 08/26/19 08/27/19 08/27/19 18:59 06:59 18:59 Intake Total 550 Balance 550 Weight 107.774 kg 107.5 kg Intake: Intake, IV Titration 250 Amount Vancomycin 1,500 mg In 250 Sodium Chloride 0.9% 250 ml @ 125 mls/hr IVPB ONCE ONE Rx#:[id number] Oral 300 Other: Voiding Method Bedside Commode Bedside Commode Diaper Diaper - Exam Constitutional: No acute distress, conversant, pleasant Eyes:Anicteric sclerae, moist conjunctiva, no lid-lag, PERRLA, ENMT: Oropharynx clear, no erythema, exudates Neck: Supple, FROM, no masses, or JVD, No carotid bruits, No thyromegaly Lungs: Clear to auscultation, Clear to percussion, Normal respiratory effort, no accessory muscle use Cardiovascular: Heart regular in rate and rhythm, No murmurs, gallops, or rubs, No peripheral edema Abdominal: Soft, slightly tender all over, no guarding, rebound or rigidity, Normoactive bowel sounds, No hepatomegaly, No splenomegaly, No palpable mass Skin: Normal temperature, tone, texture, turgor, no induration, No subcutaneous nodules, No rash, lesions, No ulcers Extremities: No digital cyanosis, No clubbing, Pedal pulses intact and symmetri hailey, Radial pulses intact and symmetrical, No calf tenderness Psychiatric: Alert and oriented to person, place and time, appropriate affect, intact judgement Neuro: Muscles Strength 5/5 in all 4 extremities, Sensation to light touch grossly present throughout, Cranial nerves II-XII grossly intact, no focal sensory deficits - Labs CBC & Chem 7: 08/26/19 18:32 08/26/19 18:32 Labs: Abnormal Lab Results - Last 24 Hours (Table) 04/08/26/19 08/26/19 Range/Units 18:32 18:32 19:43 MCHC 30.9 L (31.0-37.0) g/dL RDW 17.9 H (11.5-15.5) % Neutrophils # 7.8 H (1.3-7.7) k/uL Lymphocytes # 0.7 L (1.0-4.8) k/uL Sodium 133 L (137-145) mmol/L Chloride 94 L (98-107) mmol/L BUN 29 H (7-17) mg/dL Creatinine 9.50 H* (0.52-1.04) mg/dL Glucose 103 H (74-99) mg/dL POC Glucose (mg/dL) (75-99) mg/dL Calcium 7.3 L (8.4-10.2) mg/dL Total Protein 6.2 L (6.3-8.2) g/dL Albumin 2.8 L (3.5-5.0) g/dL Amylase <30 L (30-110) U/L Lipase 21 L (23-300) U/L Urine Appearance Turbid H (Clear) Urine Protein 2+ H (Negative) Urine Blood Moderate H (Negative) Ur Leukocyte Esterase Large H (Negative) Urine RBC 137 H (0-5) /hpf Urine WBC >182 H (0-5) /hpf Urine WBC Clumps Many H (None) /hpf Ur Squamous Epith Cells 31 H (0-4) /hpf Amorphous Sediment Occasional H (None) /hpf Urine Bacteria Many H (None) /hpf Hyaline Casts 26 H (0-2) /lpf Urine Mucus Rare H (None) /hpf 08/27/19 08/27/19 08/27/19 Range/Units 02:39 07:01 10:56 MCHC (31.0-37.0) g/dL RDW (11.5-15.5) % Neutrophils # (1.3-7.7) k/uL Lymphocytes # (1.0-4.8) k/uL Sodium (137-145) mmol/L Chloride (98-107) mmol/L BUN (7-17) mg/dL Creatinine (0.52-1.04) mg/dL Glucose (74-99) mg/dL POC Glucose (mg/dL) 116 H 253 H 199 H (75-99) mg/dL Calcium (8.4-10.2) mg/dL Total Protein (6.3-8.2) g/dL Albumin (3.5-5.0) g/dL Amylase (30-110) U/L Lipase (23-300) U/L Urine Appearance (Clear) Urine Protein (Negative) Urine Blood (Negative) Ur Leukocyte Esterase (Negative) Urine RBC (0-5) /hpf Urine WBC (0-5) /hpf Urine WBC Clumps (None) /hpf Ur Squamous Epith Cells (0-4) /hpf Amorphous Sediment (None) /hpf Urine Bacteria (None) /hpf Hyaline Casts (0-2) /lpf Urine Mucus (None) /hpf Microbiology - Last 24 Hours (Table) 08/26/19 19:43 Urine Culture - Preliminary Urine,Catheterized Assessment and Plan Plan: Abd pain rule out peritonitis with PD Nephrology to send cell count and differential, as well as cultures of the peritoneal fluids Tylenol for fever and pain. Intraperitoneal antibiotics per nephro Chronic conditions DM, , hold insulin pump, continue with insulin sliding scale Hypertension , resume home meds Left heel ulcer, stage IV, continue with santyl Hyperlipidemia
[2019-08-27 17:22] LABS: Glucose,Whole Blood 225 mg/dL (75-99)
[2019-08-27 19:49] LABS: Appearance,BF Hazy; Color,BF Colorless; Nucleated Cells, Body Fluid 45 /uL; RBC, Body Fluid 11 /uL
[2019-08-27 20:03] LABS: Mononuclear WBC,Body Fluid 11 %; Polynuclear WBC,Body Fluid 85 %; Total Cells Counted,Body Fluid 100
[2019-08-27 20:17] LABS: Glucose,Whole Blood 242 mg/dL (75-99)
[2019-08-28] MEDS: DIALYSIS (PERIT 2.5%) 2,000 ML 50 G/2,000 ML BAG INTRAPERIT SCH ×5 (00:35→23:45)
[2019-08-28] MEDS: HEPARIN SODIUM,PORCINE 5,000 UNIT/ML 1 ML VIAL SQ SCH ×4 (00:39→17:45)
[2019-08-28 00:48] LABS: Glucose,Whole Blood 149 mg/dL (75-99)
[2019-08-28 02:18] LABS: Glucose,Whole Blood 159 mg/dL (75-99)
[2019-08-28] MEDS: HYDROmorphone 0.5 MG/0.5 ML SYRINGE IVP PRN ×6 (06:10→22:36)
[2019-08-28] MEDS: ONDANSETRON 4 MG/2 ML VIAL IVP PRN ×2 (06:21→11:31)
[2019-08-28] MEDS: LEVOTHYROXINE 75 MCG TAB PO SCH (06:30)
[2019-08-28 07:13] LABS: Glucose,Whole Blood 224 mg/dL (75-99)
[2019-08-28] MEDS ORDERED: LACTULOSE 20 GM/30 ML CUP PO ONE (08:09)
[2019-08-28] MEDS ORDERED: LACTULOSE 20 GM/30 ML CUP PO PRN (08:09)
[2019-08-28 08:40] LABS: Calcium 6.5 mg/dL (8.4-10.2); Magnesium 1.4 mg/dL (1.6-2.3); Phosphorus 4.7 mg/dL (2.5-4.5); Potassium 3.6 mmol/L (3.5-5.1)
[2019-08-28] MEDS: PREGABALIN 25 MG CAP PO SCH ×2 (08:42→20:58)
[2019-08-28] MEDS: PANTOPRAZOLE 40 MG TABLET PO SCH (08:42)
[2019-08-28] MEDS: CLOPIDOGREL 75 MG TAB PO SCH (08:43)
[2019-08-28] MEDS: METOPROLOL TARTRATE 25 MG TAB PO SCH ×2 (08:43→20:58)
[2019-08-28] MEDS: INSULIN ASPART (NovoLOG) 100 UNIT/ML VIAL SQ SCH ×4 (08:43→20:58)
[2019-08-28] MEDS: FUROSEMIDE 40 MG TAB PO SCH (08:43)
[2019-08-28 09:29] LABS: Vancomycin,Random 23.6 ug/mL
--- NOTE | 2019-08-28 09:30 | P.PN ---
Subjective Patient is seen in follow-up for end-stage renal disease. She is maintained on peritoneal dialysis. Dialysate is clear. Continues to have intermittent abdominal discomfort. Also complains of constipation. Urine culture positive for group D enterococcus. Vital signs are stable. General: The patient appeared well nourished and normally developed. HEENT: Head exam is unremarkable. Neck is without jugular venous distension. LUNGS: Lungs are clear to auscultation and percussion. Breath sounds decreased. HEART: Rate and Rhythm are regular. First and second heart sounds normal. No murmurs, rubs or gallops. ABDOMEN: Soft. Generalized tenderness. EXTREMITITES: Trace edema. BKA noted. Objective - Vital Signs Vital signs: Vital Signs Temp 98.1 F 08/28/19 06:00 Pulse 77 08/28/19 06:00 Resp 17 08/28/19 06:00 BP 118/56 08/28/19 06:00 Pulse Ox 99 08/28/19 06:00 Intake & Output 08/27/19 08/28/19 08/28/19 18:59 06:59 18:59 Intake Total 300 550 Balance 300 550 Intake: Oral 300 550 Other: Voiding Method Bedside Commode Bedside Commode Diaper Diaper Incontinent # Voids 0 - Labs CBC & Chem 7: 08/26/19 18:32 08/28/19 08:04 Labs: Abnormal Lab Results - Last 24 Hours (Table) 08/27/19 08/27/19 08/27/19 Range/Units 10:56 17:21 19:56 Sodium (137-145) mmol/L Chloride (98-107) mmol/L BUN (7-17) mg/dL Creatinine (0.52-1.04) mg/dL Glucose (74-99) mg/dL POC Glucose (mg/dL) 199 H 225 H 242 H (75-99) mg/dL Calcium (8.4-10.2) mg/dL Phosphorus (2.5-4.5) mg/dL Magnesium (1.6-2.3) mg/dL 08/28/19 08/28/19 08/28/19 Range/Units 00:37 02:07 07:11 Sodium (137-145) mmol/L Chloride (98-107) mmol/L BUN (7-17) mg/dL Creatinine (0.52-1.04) mg/dL Glucose (74-99) mg/dL POC Glucose (mg/dL) 149 H 159 H 224 H (75-99) mg/dL Calcium (8.4-10.2) mg/dL Phosphorus (2.5-4.5) mg/dL Magnesium (1.6-2.3) mg/dL 08/28/19 Range/Units 08:04 Sodium 133 L (137-145) mmol/L Chloride 95 L (98-107) mmol/L BUN 33 H (7-17) mg/dL Creatinine 9.62 H* (0.52-1.04) mg/dL Glucose 268 H (74-99) mg/dL POC Glucose (mg/dL) (75-99) mg/dL Calcium 6.5 L (8.4-10.2) mg/dL Phosphorus 4.7 H (2.5-4.5) mg/dL Magnesium 1.4 L (1.6-2.3) mg/dL Microbiology - Last 24 Hours (Table) 08/27/19 01:50 Blood Culture - Preliminary Blood No Growth after 24 hours 08/27/19 01:19 Gram Stain - Preliminary Peritoneal Fluid Body Fluid Culture - Preliminary 08/26/19 19:43 Urine Culture - Preliminary Urine,Catheterized Group D Enterococcus Assessment and Plan Plan: Assessment: 1. End-stage renal disease maintained on peritoneal dialysis. 2. Abdominal pain. CAT scan of the abdomen and pelvis revealed no acute changes. 3. Insulin-dependent diabetes mellitus. 4. Chronic kidney disease mineral bone disease maintained on calcitriol and PhosLo outpatient. Doubt peritonitis as cell count is 45. Possibly due to constipation. 5. Anemia of chronic kidney disease. Hemoglobin currently at goal. 6. UTI. Urine culture positive for group B enterococcus maintained on IV Rocephin. Plan: Maintain 2 L exchanges every 6 hours with 2.5% dextrose solution. Check dialysate for cell count, culture and Gram stain again today. Status post intraperitoneal vancomycin and Fortaz on August 26. Add PhosLo with meals. Replace magnesium. 2 g IV today. Add lactulose 3 times daily as needed for constipation.
--- NOTE | 2019-08-28 10:14 | P.PN ---
Subjective Progress Note Date: 08/28/19 Principal diagnosis: Abdominal pain The patient still having diffuse abdominal pain, dry heaving and occasional vomiting. No fevers or chills. No chest pain or shortness of breath. Objective - Vital Signs Vital signs: Vital Signs Temp 98.1 F 08/28/19 06:00 Pulse 77 08/28/19 06:00 Resp 17 08/28/19 06:00 BP 118/56 08/28/19 06:00 Pulse Ox 99 08/28/19 06:00 Intake & Output 08/27/19 08/28/19 08/28/19 18:59 06:59 18:59 Intake Total 300 550 Balance 300 550 Intake: Oral 300 550 Other: Voiding Method Bedside Commode Bedside Commode Diaper Diaper Incontinent # Voids 0 - Exam Constitutional: No acute distress, conversant, pleasant Eyes:Anicteric sclerae, moist conjunctiva, no lid-lag, PERRLA, ENMT: Oropharynx clear, no erythema, exudates Neck: Supple, FROM, no masses, or JVD, No carotid bruits, No thyromegaly Lungs: Clear to auscultation, Clear to percussion, Normal respiratory effort, no accessory muscle use Cardiovascular: Heart regular in rate and rhythm, No murmurs, gallops, or rubs, No peripheral edema Abdominal: Soft, slightly tender all over, no guarding, rebound or rigidity, Normoactive bowel sounds, No hepatomegaly, No splenomegaly, No palpable mass Skin: Normal temperature, tone, texture, turgor, no induration, No subcutaneous nodules, No rash, lesions, No ulcers Extremities: No digital cyanosis, No clubbing, Pedal pulses intact and symmetrical, Radial pulses intact and symmetrical, No calf tenderness Psychiatric: Alert and oriented to person, place and time, appropriate affect, intact judgement Neuro: Muscles Strength 5/5 in all 4 extremities, Sensation to light touch kaiden ssly present throughout, Cranial nerves II-XII grossly intact, no focal sensory deficits - Labs CBC & Chem 7: 08/26/19 18:32 08/28/19 08:04 Labs: Abnormal Lab Results - Last 24 Hours (Table) 08/27/19 08/27/19 08/27/19 Range/Units 10:56 17:21 19:56 Sodium (137-145) mmol/L Chloride (98-107) mmol/L BUN (7-17) mg/dL Creatinine (0.52-1.04) mg/dL Glucose (74-99) mg/dL POC Glucose (mg/dL) 199 H 225 H 242 H (75-99) mg/dL Calcium (8.4-10.2) mg/dL Phosphorus (2.5-4.5) mg/dL Magnesium (1.6-2.3) mg/dL 08/28/19 08/28/19 08/28/19 Range/Units 00:37 02:07 07:11 Sodium (137-145) mmol/L Chloride (98-107) mmol/L BUN (7-17) mg/dL Creatinine (0.52-1.04) mg/dL Glucose (74-99) mg/dL POC Glucose (mg/dL) 149 H 159 H 224 H (75-99) mg/dL Calcium (8.4-10.2) mg/dL Phosphorus (2.5-4.5) mg/dL Magnesium (1.6-2.3) mg/dL 08/28/19 Range/Units 08:04 Sodium 133 L (137-145) mmol/L Chloride 95 L (98-107) mmol/L BUN 33 H (7-17) mg/dL Creatinine 9.62 H* (0.52-1.04) mg/dL Glucose 268 H (74-99) mg/dL POC Glucose (mg/dL) (75-99) mg/dL Calcium 6.5 L (8.4-10.2) mg/dL Phosphorus 4.7 H (2.5-4.5) mg/dL Magnesium 1.4 L (1.6-2.3) mg/dL Microbiology - Last 24 Hours (Table) 08/27/19 01:50 Blood Culture - Preliminary Blood No Growth after 24 hours 08/27/19 01:19 Gram Stain - Preliminary Peritoneal Fluid Body Fluid Culture - Preliminary 08/26/19 19:43 Urine Culture - Preliminary Urine,Catheterized Group D Enterococcus Assessment and Plan Plan: Abd pain likely secondary to UTI no peritonitis noted per peritoneal fluid analysis Urine culture is growing enterococcus, antibiotics changed to ampicillin, follow-up sensitivity panel Tylenol for fever and pain. Patient received intraperitoneal antibiotics, now discontinued. Consult infectious disease Nausea and vomiting/abdominal pain Symptomatic treatment Constipation Started on lactulose General weakness Consult physical medicine and rehab physician Left heel ulcer stage 4 Consult ID to order santyl Chronic conditions DM, , hold insulin pump, continue with insulin sliding scale Hypertension , resume home meds Hyperlipidemia
[2019-08-28] MEDS: AMPICILLIN 1,000 MG in SODIUM CHLORIDE 0.9% 50 ML IVPB SCH ×2 (11:20→20:58)
[2019-08-28] MEDS: TORSEMIDE 20 MG TAB PO SCH (11:22)
[2019-08-28 11:37] LABS: Glucose,Whole Blood 220 mg/dL (75-99)
[2019-08-28] MEDS: MAGNESIUM SULFATE-D5W PMX 1 GM in DEXTROSE/WATER 1 100ML.BAG IVPB SCH ×2 (12:23→15:56)
[2019-08-28] MEDS: CALCIUM ACETATE 667 MG TAB PO SCH ×2 (14:15→17:42)
--- NOTE | 2019-08-28 15:12 | P.CONS ---
History of Present Illness - Chief Complaint Medical debility - History of Present Illness I had the opportunity to see patient for inpatient rehab consultation with regard to medical debility. She was admitted to [facility] August 25 abdominal pain 5 days duration. She is known to me the same problem and in fact require an inpatient rehab. She previously had difficulty tolerating rehab due to dialysis treatments as well as abdominal pain and blood pressure changes. Seen in consultation by Dr. Chu. CT of abdomen and pelvis with no suspicious changes. OT is attempted see patient today and yesterday and unsuccessful due to abdominal pain. Previous functional history as elicited from patient: 64 showed right-handed female who is apartment. 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 Patient reports she won't take shower without a. Patient generally uses wheelchair mobility but does have walker as well as right BK prosthesis. PMD Dr. Brantley. Review of Systems Review of systems: ENT: Denies sneezes or discharge. Eyes: Denies discharge or photophobia. Cardiac: Denies chest pain or palpitation. Pulmonary: Denies cough or shortness of breath. Breast: Denies discharge or lumps. Gastrointestinal: Still with abdominal discomfort. Genitourinary: Denies discharge or frequency. Musculoskeletal: Denies muscle or bone aches. Neurologic: Feels generally weak. Endocrine: Denies shakes or sweats. Oncology: Denies cancers. Dermatologic: Denies rash, itching, pruritus. ALLERGY/immunology: Denies sneezes, rashes. Past Medical History Past Medical History: Diabetes Mellitus, Dialysis, GERD/Reflux, Hyperlipidemia, Hypertension, Memory Impairment, Renal Disease, Thyroid Disorder Additional Past Medical History / Comment(s): peritoneal dialysis daily over night. hx steel syndrome left hand-please use rt arm/hand for iv, blood draws. diabetic neuropathy and diabetic retinopathy, Rt BKA uses prosthesis. 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 neck cervical 4,5,6 fused. graft tie off 04/05/2017, eye laser surgery for diabetic retinopathy Past Anesthesia/Blood Transfusion Reactions: No Reported Reaction Past Psychological History: Anxiety, Depression Smoking Status: Never smoker Past Alcohol Use History: None Reported Past Drug Use History: None Reported - Past Family History Mother Family Medical History: Diabetes Mellitus, Hypertension Additional Family Medical History / Comment(s): colon ca Father Family Medical History: Myocardial Infarction (MS) Medications and Allergies Home Medications Medication Instructions Recorded Confirmed Type Levothyroxine Sodium [Synthroid] 75 mcg PO DAILY 10/09/16 08/26/19 History Pantoprazole [Protonix] 40 mg PO DAILY 10/09/16 08/26/19 History Clopidogrel [Plavix] 75 mg PO DAILY 03/11/17 08/26/19 History Metoprolol Tartrate [Lopressor] 25 mg PO BID #0 tab 11/15/18 08/26/19 Rx Acetaminophen Tab [Tylenol] 650 mg PO Q6HR PRN tab 02/27/19 08/26/19 Rx Calcium Acetate [PhosLo] 667 mg PO TID-W/MEALS cap 02/27/19 08/26/19 Rx Potassium Chloride ER [K-Dur 10] 10 meq PO DAILY tab.er.prt 02/27/19 08/26/19 Rx Calcitriol [Rocaltrol] 0.25 mcg PO Q7D 07/27/19 08/26/19 History Collagenase [Santyl] 1 applic TOPICAL DAILY 07/27/19 08/26/19 History Epoetin Edgardo [Procrit] 4,000 unit SQ MOWEFR 07/27/19 08/26/19 History Torsemide [Demadex] 100 mg PO DAILY 07/27/19 08/26/19 History Pregabalin [Lyrica] 25 mg PO BID #60 cap 08/13/19 08/26/19 Rx Allergies Allergy/AdvReac Type Severity Reaction Status Date / Time gabapentin Allergy Rash/Hives Verified 08/26/19 22:55 morphine Allergy Rash/Hives Verified 08/26/19 22:55 escitalopram [From Lexapro] AdvReac Hallucinati Verified 08/26/19 23:25 ons lisinopril AdvReac Cough Verified 08/26/19 22:55 quetiapine [From Seroquel] AdvReac Hallucinati Verified 08/26/19 22:55 ons Physical Exam Vitals: Vital Signs Temp Pulse Pulse Pulse Pulse Resp BP 08/28/19 11:59 97.9 F 79 17 08/28/19 08:00 77 74 17 08/28/19 06:00 98.1 F 77 17 118/56 08/28/19 04:50 98.1 F 77 20 08/28/19 01:30 97.8 F 72 17 08/28/19 00:30 98.2 F 71 16 90/54 08/27/19 21:45 98 F 75 20 08/27/19 16:00 78 74 16 BP BP Pulse Ox 08/28/19 11:59 112/59 95 08/28/19 08:00 08/28/19 06:00 99 08/28/19 04:50 102/61 100 08/28/19 01:30 106/58 99 08/28/19 00:30 100 08/27/19 21:45 96/61 98 08/27/19 16:00 Intake and Output 08/28/19 08/28/19 08/28/19 06:59 14:59 22:59 Intake Total 350 200 Balance 350 200 Intake: Intake, IV Titration 200 Amount Ampicillin 1,000 mg In 100 Sodium Chloride 0.9% 50 ml @ 100 mls/hr IVPB Q12HR [facility] Rx#:[id number] Magnesium Sulfate-D5w Pmx 100 1 gm In Dextrose/Water 1 100ml.bag @ 100 mls/hr IVPB Q1H [facility] Rx#: [id number] Oral 350 Other: Voiding Method Bedside Commode Bedside Commode Diaper Diaper Incontinent Incontinent # Voids 0 Skin: Good color, texture, turgor. General: Obese build and comfortable appearance. Head: Normocephalic, atraumatic. Eyes: Symmetric. Pupils equal round. Ears: Symmetric. Hearing within normal limits. Mouth: Clear. Neck: Supple. Carotid without bruit. Cardiac: Regular rate and rhythm. Lungs: Clear anteriorly and posteriorly. Abdomen: Soft active nontender. Extremities: Normal tone. Old well-healed right BKA. Neurological: Mental status: Alert, cooperative, pleasant. Cranial nerves: Symmetric facial tone and trapezius. Motor: Can actively elevate all 4 limbs off of bed. Sensation: Intact throughout. DTRs: Symmetric and equal throughout. Mobility: Requires physical assistance for bed mobility. Results CBC & Chem 7: 08/26/19 18:32 08/28/19 08:04 Labs: Abnormal Lab Results - Last 24 Hours (Table) 08/27/19 08/27/19 08/28/19 Range/Units 17:21 19:56 00:37 Sodium (137-145) mmol/L Chloride (98-107) mmol/L BUN (7-17) mg/dL Creatinine (0.52-1.04) mg/dL Glucose (74-99) mg/dL POC Glucose (mg/dL) 225 H 242 H 149 H (75-99) mg/dL Calcium (8.4-10.2) mg/dL Phosphorus (2.5-4.5) mg/dL Magnesium (1.6-2.3) mg/dL 08/28/19 08/28/19 08/28/19 Range/Units 02:07 07:11 08:04 Sodium 133 L (137-145) mmol/L Chloride 95 L (98-107) mmol/L BUN 33 H (7-17) mg/dL Creatinine 9.62 H* (0.52-1.04) mg/dL Glucose 268 H (74-99) mg/dL POC Glucose (mg/dL) 159 H 224 H (75-99) mg/dL Calcium 6.5 L (8.4-10.2) mg/dL Phosphorus 4.7 H (2.5-4.5) mg/dL Magnesium 1.4 L (1.6-2.3) mg/dL 08/28/19 Range/Units 11:36 Sodium (137-145) mmol/L Chloride (98-107) mmol/L BUN (7-17) mg/dL Creatinine (0.52-1.04) mg/dL Glucose (74-99) mg/dL POC Glucose (mg/dL) 220 H (75-99) mg/dL Calcium (8.4-10.2) mg/dL Phosphorus (2.5-4.5) mg/dL Magnesium (1.6-2.3) mg/dL Microbiology - Last 24 Hours (Table) 08/27/19 01:50 Blood Culture - Preliminary Blood No Growth after 24 hours 08/27/19 01:19 Gram Stain - Preliminary Peritoneal Fluid Body Fluid Culture - Preliminary 08/26/19 19:43 Urine Culture - Preliminary Urine,Catheterized Group D Enterococcus Assessment and Plan (1) End stage renal disease Current Visit: Yes Status: Acute Code(s): N18.6 - END STAGE RENAL DISEASE SNOMED Code(s): 18674244 (2) Intractable abdominal pain Current Visit: Yes Status: Acute Code(s): R10.9 - UNSPECIFIED ABDOMINAL PAIN SNOMED Code(s): 02129719 Plan: Impression: 1. Medical debility. 2. End-stage renal failure requiring. Hemodialysis with complication frequent of peritonitis. 3. Acute abdominal pain. 4. UTI. 5. Old right BKA. 6. Diabetes. 7. Hypertension. 8. Memory impairment. Comments and plan: At this time PT and OT are prescribed. Patient has been unable to participate with therapy yet. I discussed with her inpatient rehab criteria including 3 hours therapy per day that can be divided up into 4 sessions, each at least half an hour. At this time patient is benign able to participate in all. We will follow therapy tomorrow and over weekend.
[2019-08-28] MEDS: ACETAMINOPHEN TAB 325 MG TAB PO PRN (16:08)
[2019-08-28 20:10] LABS: Appearance,BF Clear; Color,BF Colorless; Nucleated Cells, Body Fluid 68 /uL; RBC, Body Fluid 1 /uL
[2019-08-28 20:12] LABS: Mononuclear WBC,Body Fluid 10 %; Polynuclear WBC,Body Fluid 90 %; Total Cells Counted,Body Fluid 100
--- NOTE | 2019-08-28 23:03 | P.CONS ---
History of Present Illness - Reason for Consult Consult date: 08/28/19 UTI and left heel wound Requesting physician: John Peacock - Chief Complaint abd pain x few days and non healing wound to left heel x months - History of Present Illness Patient is a 63-year-old -[place] female with a past medical history significant for end-stage renal disease on peritoneal dialysis with recent multiple admission in this facility she was recently treated for a PD catheter associated peritonitis culture positive for staph epi and Proteus that was treated vancomycin and Fortaz patient is now presenting back to [facility] ER on August 18, 2019 with chief complaints of abdominal pain of 5 days duration patient is currently palpable in the lower abdominal area describing it to be dull aching to colicky almost 7 L of fluid no radiation patient was complaining of constipation and this seemed to be have exacerbated her abdominal pain some nausea but no vomiting on admission the patient did have a CT abdominal pelvis that was negative for any acute findings patient on admission has been afebrile and did have a normal white count has not been repeated since then patient did have a UA done on admission which did show blood leukocyte esterase more than 182 WBC cultures are now showing enterococcus that prompted this infectious disease consultation however the patient is a dialysis patient and hardly makes any urine and denies having any burning or frequency to urinate and no hematuria patient did have a peritoneal fluid sent for analysis and white count has been around 45-68 currently being managed with ampicillin 1 g every 12 and vancomycin pharmacy dose of Rocephin was discontinued patient also have a chronic nonhealing wound to the left heel area for the patient follows with Dr. Jaramillo in the wound care center however apparently the patient mention she has not been able to see him as she has been in the hospital mostly recently. Review of Systems Positive point has been mentioned in HPI rest of the systems are negative Past Medical History Past Medical History: Diabetes Mellitus, Dialysis, GERD/Reflux, Hyperlipidemia, Hypertension, Memory Impairment, Renal Disease, Thyroid Disorder Additional Past Medical History / Comment(s): peritoneal dialysis daily over night. hx steel syndrome left hand-please use rt arm/hand for iv, blood draws. diabetic neuropathy and diabetic retinopathy, Rt BKA uses prosthesis. 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 neck cervical 4,5,6 fused. graft tie off 04/05/2017, eye laser surgery for diabetic retinopathy Past Anesthesia/Blood Transfusion Reactions: No Reported Reaction Past Psychological History: Anxiety, Depression Smoking Status: Never smoker Past Alcohol Use History: None Reported Past Drug Use History: None Reported - Past Family History Mother Family Medical History: Diabetes Mellitus, Hypertension Additional Family Medical History / Comment(s): colon ca Father Family Medical History: Myocardial Infarction (ND) Medications and Allergies Home Medications Medication Instructions Recorded Confirmed Type Levothyroxine Sodium [Synthroid] 75 mcg PO DAILY 10/09/16 08/26/19 History Pantoprazole [Protonix] 40 mg PO DAILY 10/09/16 08/26/19 History Clopidogrel [Plavix] 75 mg PO DAILY 03/11/17 08/26/19 History Metoprolol Tartrate [Lopressor] 25 mg PO BID #0 tab 11/15/18 08/26/19 Rx Acetaminophen Tab [Tylenol] 650 mg PO Q6HR PRN tab 02/27/19 08/26/19 Rx Calcium Acetate [PhosLo] 667 mg PO TID-W/MEALS cap 02/27/19 08/26/19 Rx Potassium Chloride ER [K-Dur 10] 10 meq PO DAILY tab.er.prt 02/27/19 08/26/19 Rx Calcitriol [Rocaltrol] 0.25 mcg PO Q7D 07/27/19 08/26/19 History Collagenase [Santyl] 1 applic TOPICAL DAILY 07/27/19 08/26/19 History Epoetin Edgardo [Procrit] 4,000 unit SQ MOWEFR 07/27/19 08/26/19 History Torsemide [Demadex] 100 mg PO DAILY 07/27/19 08/26/19 History Pregabalin [Lyrica] 25 mg PO BID #60 cap 08/13/19 08/26/19 Rx Allergies Allergy/AdvReac Type Severity Reaction Status Date / Time gabapentin Allergy Rash/Hives Verified 08/26/19 22:55 morphine Allergy Rash/Hives Verified 08/26/19 22:55 escitalopram [From Lexapro] AdvReac Hallucinati Verified 08/26/19 23:25 ons lisinopril AdvReac Cough Verified 08/26/19 22:55 quetiapine [From Seroquel] AdvReac Hallucinati Verified 08/26/19 22:55 ons Physical Exam Vitals: Vital Signs Temp Pulse Pulse Pulse Resp BP BP 08/28/19 21:00 97.5 F L 80 20 119/67 08/28/19 15:17 79 74 17 08/28/19 11:59 97.9 F 79 17 112/59 08/28/19 08:00 77 74 17 08/28/19 06:00 98.1 F 77 17 118/56 08/28/19 04:50 98.1 F 77 20 102/61 08/28/19 01:30 97.8 F 72 17 08/28/19 00:30 98.2 F 71 16 90/54 BP Pulse Ox 08/28/19 21:00 99 08/28/19 15:17 08/28/19 11:59 95 08/28/19 08:00 08/28/19 06:00 99 08/28/19 04:50 100 08/28/19 01:30 106/58 99 08/28/19 00:30 100 Intake and Output 08/28/19 08/28/19 08/28/19 06:59 14:59 22:59 Intake Total 350 200 Balance 350 200 Intake: Intake, IV Titration 200 Amount Ampicillin 1,000 mg In 100 Sodium Chloride 0.9% 50 ml @ 100 mls/hr IVPB Q12HR [facility] Rx#:[id number] Magnesium Sulfate-D5w Pmx 100 1 gm In Dextrose/Water 1 100ml.bag @ 100 mls/hr IVPB Q1H [facility] Rx#: [id number] Oral 350 Other: Voiding Method Bedside Commode Bedside Commode Bedside Commode Diaper Diaper Diaper Incontinent Incontinent Incontinent # Voids 0 0 GENERAL DESCRIPTION: Elderly female lying in bed, no distress. No tachypnea or accessory muscle of respiration use. HEENT: Shows Pallor , no scleral icterus. Oral mucous membrane is dry. NECK: Trachea central, no thyromegaly. LUNGS: Unlabored breathing. Decreased breath sound with. No wheeze or crackle. HEART: S1, S2, regular rate and rhythm. ABDOMEN: Soft, mild distention and tenderness EXTREMITIES: Left heel with a stage III pressure ulcer with significant necrotic and slough tissue. SKIN: No rash, no masses palpable. NEUROLOGICAL: The patient is awake, alert, oriented x3, mood and affect normal. Results CBC & Chem 7: 08/26/19 18:32 08/28/19 08:04 Labs: Abnormal Lab Results - Last 24 Hours (Table) 08/28/19 08/28/19 08/28/19 Range/Units 00:37 02:07 07:11 Sodium (137-145) mmol/L Chloride (98-107) mmol/L BUN (7-17) mg/dL Creatinine (0.52-1.04) mg/dL Glucose (74-99) mg/dL POC Glucose (mg/dL) 149 H 159 H 224 H (75-99) mg/dL Calcium (8.4-10.2) mg/dL Phosphorus (2.5-4.5) mg/dL Magnesium (1.6-2.3) mg/dL 08/28/19 08/28/19 Range/Units 08:04 11:36 Sodium 133 L (137-145) mmol/L Chloride 95 L (98-107) mmol/L BUN 33 H (7-17) mg/dL Creatinine 9.62 H* (0.52-1.04) mg/dL Glucose 268 H (74-99) mg/dL POC Glucose (mg/dL) 220 H (75-99) mg/dL Calcium 6.5 L (8.4-10.2) mg/dL Phosphorus 4.7 H (2.5-4.5) mg/dL Magnesium 1.4 L (1.6-2.3) mg/dL Microbiology - Last 24 Hours (Table) 08/27/19 01:19 Gram Stain - Preliminary Peritoneal Fluid Body Fluid Culture - Preliminary 08/27/19 01:50 Blood Culture - Preliminary Blood No Growth after 24 hours 08/26/19 19:43 Urine Culture - Preliminary Urine,Catheterized Group D Enterococcus Assessment and Plan Assessment: 1-patient with a positive UA which is usually expected in this patient with end- stage renal disease on peritoneal dialysis who hardly makes any urine and is more likely from the urine sitting in the bladder for a long time rather than indicated of urinary tract infection patient with no urinary symptoms no fever or elevated white count 2-left heel pressure ulcer with significant slough tissue will benefit from surgical debridement (1) Decubitus ulcer of left heel, stage 3 Current Visit: Yes Status: Acute Code(s): L89.623 - PRESSURE ULCER OF LEFT HEEL, STAGE 3 SNOMED Code(s): 752942173 (2) UTI (urinary tract infection) Current Visit: Yes Status: Acute Code(s): N39.0 - URINARY TRACT INFECTION, SITE NOT SPECIFIED SNOMED Code(s): 84495001 Plan: 1-antibiotic can be safely discontinued clinically doubt symptomatic UTI 2-local wound care with meta honey followed by moist dressing keep the area of the pressure 3-consult Dr. Jaramillo for surgical debridement of her left heel wound that should help in the healing process We will follow on clinical condition and cultures to further adjust medication if needed Thank you for this consultation we will follow the patient along with you Time with Patient: Greater than 30
[2019-08-29] MEDS: HEPARIN SODIUM,PORCINE 5,000 UNIT/ML 1 ML VIAL SQ SCH ×3 (00:15→18:21)
[2019-08-29] MEDS: ACETAMINOPHEN TAB 325 MG TAB PO PRN (00:29)
[2019-08-29] MEDS: HYDROmorphone 0.5 MG/0.5 ML SYRINGE IVP PRN (00:55)
[2019-08-29] MEDS: HYDROmorphone 1 MG/ML 1 ML SYRINGE IVP PRN ×2 (02:08→05:59)
[2019-08-29] MEDS: DIALYSIS (PERIT 2.5%) 2,000 ML 50 G/2,000 ML BAG INTRAPERIT SCH ×3 (05:13→18:24)
[2019-08-29] MEDS: LEVOTHYROXINE 75 MCG TAB PO SCH (06:04)
[2019-08-29 07:32] LABS: Calcium 7.2 mg/dL (8.4-10.2); Magnesium 1.9 mg/dL (1.6-2.3); Potassium 4.2 mmol/L (3.5-5.1)
[2019-08-29 07:47] LABS: Glucose,Whole Blood 265 mg/dL (75-99)
[2019-08-29 07:47] LABS: Glucose,Whole Blood 270 mg/dL (75-99)
[2019-08-29 07:47] LABS: Glucose,Whole Blood 192 mg/dL (75-99)
[2019-08-29 08:02] LABS: Glucose,Whole Blood 321 mg/dL (75-99)
[2019-08-29] MEDS: INSULIN ASPART (NovoLOG) 100 UNIT/ML VIAL SQ SCH ×4 (08:09→21:55)
[2019-08-29] MEDS: CALCIUM ACETATE 667 MG TAB PO SCH ×3 (08:09→18:21)
[2019-08-29] MEDS: METOPROLOL TARTRATE 25 MG TAB PO SCH ×2 (08:10→20:21)
[2019-08-29] MEDS: CLOPIDOGREL 75 MG TAB PO SCH (08:10)
[2019-08-29] MEDS: AMPICILLIN 1,000 MG in SODIUM CHLORIDE 0.9% 50 ML IVPB SCH (08:10)
[2019-08-29] MEDS: TORSEMIDE 20 MG TAB PO SCH (08:11)
[2019-08-29] MEDS: PREGABALIN 25 MG CAP PO SCH ×2 (08:11→20:21)
[2019-08-29] MEDS: PANTOPRAZOLE 40 MG TABLET PO SCH (08:11)
[2019-08-29 09:58] LABS: Anisocytosis Slight; HCT 42.3 % (34.0-46.0); HGB 12.7 gm/dL (11.4-16.0); Hypochromasia Marked; MCH 30.1 pg (25.0-35.0); MCHC 29.9 g/dL (31.0-37.0); MCV 100.7 fL (80.0-100.0); Macrocytosis Slight; Mean Platelet Volume 10.8; Platelet Count 266 k/uL (150-450); RDW 17.4 % (11.5-15.5); WBC 9.5 k/uL (3.8-10.6)
--- NOTE | 2019-08-29 11:07 | P.PN ---
Subjective Patient is seen in follow-up for end-stage renal disease. She is maintained on peritoneal dialysis. Dialysate is clear. Continues to have abdominal discomfort. Also complains of constipation. Urine culture positive for group D enterococcus. Vital signs are stable. General: The patient appeared well nourished and normally developed. HEENT: Head exam is unremarkable. Neck is without jugular venous distension. LUNGS: Lungs are clear to auscultation and percussion. Breath sounds decreased. HEART: Rate and Rhythm are regular. First and second heart sounds normal. No murmurs, rubs or gallops. ABDOMEN: Soft. Generalized tenderness. EXTREMITITES: Trace edema. BKA noted. Objective - Vital Signs Vital signs: Vital Signs Temp 97.7 F 08/29/19 05:00 Pulse 88 08/29/19 05:00 Resp 20 08/29/19 05:00 BP 108/67 08/29/19 05:00 Pulse Ox 94 L 08/29/19 05:00 Intake & Output 08/28/19 08/29/19 08/29/19 18:59 06:59 18:59 Intake Total 200 Balance 200 Intake: Intake, IV Titration 200 Amount Ampicillin 1,000 mg In 100 Sodium Chloride 0.9% 50 ml @ 100 mls/hr IVPB Q12HR [facility] Rx#:[id number] Magnesium Sulfate-D5w Pmx 100 1 gm In Dextrose/Water 1 100ml.bag @ 100 mls/hr IVPB Q1H [facility] Rx#: [id number] Other: Voiding Method Bedside Commode Bedside Commode Bedside Commode Diaper Diaper Diaper Incontinent Incontinent Incontinent # Voids 0 0 - Labs CBC & Chem 7: 08/29/19 06:58 08/29/19 06:58 Labs: Abnormal Lab Results - Last 24 Hours (Table) 08/28/19 08/28/19 08/28/19 Range/Units 11:36 17:31 20:22 MCV (80.0-100.0) fL MCHC (31.0-37.0) g/dL RDW (11.5-15.5) % Sodium (137-145) mmol/L Chloride (98-107) mmol/L BUN (7-17) mg/dL Creatinine (0.52-1.04) mg/dL Glucose (74-99) mg/dL POC Glucose (mg/dL) 220 H 321 H 270 H (75-99) mg/dL Calcium (8.4-10.2) mg/dL 08/29/19 08/29/19 08/29/19 Range/Units 01:57 06:58 06:58 MCV 100.7 H (80.0-100.0) fL MCHC 29.9 L (31.0-37.0) g/dL RDW 17.4 H (11.5-15.5) % Sodium 133 L (137-145) mmol/L Chloride 95 L (98-107) mmol/L BUN 32 H (7-17) mg/dL Creatinine 10.06 H* (0.52-1.04) mg/dL Glucose 271 H (74-99) mg/dL POC Glucose (mg/dL) 192 H (75-99) mg/dL Calcium 7.2 L (8.4-10.2) mg/dL 08/29/19 Range/Units 07:16 MCV (80.0-100.0) fL MCHC (31.0-37.0) g/dL RDW (11.5-15.5) % Sodium (137-145) mmol/L Chloride (98-107) mmol/L BUN (7-17) mg/dL Creatinine (0.52-1.04) mg/dL Glucose (74-99) mg/dL POC Glucose (mg/dL) 265 H (75-99) mg/dL Calcium (8.4-10.2) mg/dL Microbiology - Last 24 Hours (Table) 08/28/19 19:00 Gram Stain - Preliminary Peritoneal Fluid Body Fluid Culture - Preliminary 08/26/19 19:43 Urine Culture - Final Urine,Catheterized Enterococcus faecium VRE 08/27/19 01:50 Blood Culture - Preliminary Blood No Growth after 48 hours 08/27/19 01:19 Gram Stain - Preliminary Peritoneal Fluid Body Fluid Culture - Preliminary Assessment and Plan Plan: Assessment: 1. End-stage renal disease maintained on peritoneal dialysis. 2. Abdominal pain. CAT scan of the abdomen and pelvis revealed no acute changes. Possibly from constipation. Patient's cell count is not high however PMN count is significantly elevated. 3. Insulin-dependent diabetes mellitus. 4. Chronic kidney disease mineral bone disease maintained on PhosLo. 5. Anemia of chronic kidney disease. Hemoglobin currently at goal. 6. UTI. Urine culture positive for group B enterococcus. Infectious disease following. Plan: Maintain 2 L exchanges every 6 hours with 2.5% dextrose solution. Status post intraperitoneal vancomycin and fortaz on August 26. Start 1 g intraperitoneal Fortaz daily. Maintain lactulose for constipation. Follow-up cultures. If continues to have abdominal discomfort after constipation treated, will need to consider changing to hemodialysis at least temporarily. She has tried hemodialysis in the past and has not done well with it overall.
[2019-08-29 11:13] LABS: Glucose,Whole Blood 240 mg/dL (75-99)
[2019-08-29] MEDS: cefTAZidime 1.25 GM in DIALYSIS (PERITONL) DEX 2.5% 2,000 ML INTRAPERIT SCH (12:00)
[2019-08-29] MEDS ORDERED: LACTULOSE 20 GM/30 ML CUP PO ONE (12:00)
[2019-08-29 12:23] LABS: Vancomycin,Random 21.1 ug/mL
[2019-08-29] MEDS ORDERED: LIDOCAINE 1% INJ 10MG/ML (20 ML MDV) SQ ONE (12:32)
--- NOTE | 2019-08-29 13:03 | CONS ---
CONSULTATION A 61-year-old female known to me from the past. The patient came with abdominal pain. The patient had a CT scan of the abdomen which was found to be normal. Patient is on peritoneal dialysis on daily basis. She has a wound on the left heel. I have been seeing her for chronic wound of the left heel. MEDICAL HISTORY: History of diabetes, history of chronic renal failure, history of CHF. SURGICAL HISTORY: Patient had a right-side BK amputation done in the past. Patient has a recurrent wound on the left heel. PHYSICAL EXAMINATION: Patient was seen in her room. NECK: Supple, trachea central. CHEST: Clear. ABDOMEN: Soft. Patient has a functioning peritoneal dialysis catheter. The left heel has a 5 x 5.5 cm wound. There is some eschar formation noted, which is infected and the rest of the wound has some granulation tissue. Pulses are present by the Doppler. PLAN: Debridement of the wound and will send for the deep culture. MMODL / IJN: [id number] /
--- NOTE | 2019-08-29 13:09 | PCN ---
PROCEDURE NOTE PREOPERATIVE DIAGNOSIS: Chronic wound left heel. POSTOPERATIVE DIAGNOSIS: Chronic wound left heel. Measurement is a 5 x 5.5 cm. FINDINGS: Infected eschar noted on the left heel. Left heel was prepped and draped in the prior sterile manner; 1% lidocaine plain infiltrated and using sharp knife, we did the debridement. The infected eschar was removed down to subcutaneous tissue. No active bleeding was noted. We sent the tissue for a culture. Wound was irrigated with saline and Medihoney was applied to the wound. Pressure dressing applied. Patient tolerated the procedure well. PLAN: Patient will be on placed on Santyl cream on daily basis for change of dressing and the patient's IV antibiotic under care of Infectious Disease. We should change the dressing on a daily basis. MMODL / IJN: [id number] /
--- NOTE | 2019-08-29 16:33 | P.PN ---
Subjective Progress Note Date: 08/29/19 (maryanae charting seen at 0915) Principal diagnosis: abdominal pain Patient is 64-year-old -[place] female with diabetes mellitus type 2 requiring insulin pump, end-stage renal disease on peritoneal dialysis, hypertension, dyslipidemia, GERD, and memory impairment who presented to the emergency department with complaints of 5 days of abdominal pain. Of note patient has been hospitalized multiple times over the last month secondary to abdominal pain initially she was found to have peritonitis and was treated with intraperitoneal antibiotics. At her next admission she had altered mentation which was felt to be secondary to pain medications in conjunction with her p eritoneal dialysis. She was unable to be placed at senior living facility secondary to needing. Still dialysis. She then reports to our facility on 08/25 with again 5 days of abdominal pain. In the ER she was found to have vital signs within normal limits. Laboratory analysis was consistent with her known end-stage renal disease, urinalysis showed elevated white blood cell count however patient does not routinely urinate. Covid testing was negative. CT abdomen and pelvis showed no acute process. She was admitted for possible peritonitis was started on empiric vancomycin Rocephin. Her peritoneal fluid came back negative for infection. She was seen by nephrology who recommending continuing peritoneal dialysis. Urine came back with possible group D enterococcus urinary tract infection. Patient's Rocephin was switched to ampicillin and infectious disease was consulted. Infectious disease discontinued antibiotics as they typically doubted symptomatic urinary tract infection. She continued to have nausea and vomiting through 08/27. Patient seen and examined at bedside. Nausea and vomiting is greatly improved, still feeling very weak, no shortness of breath, no chest pain. Wants to go to inpatient rehab. Still has not had a bowel movement. Objective - Vital Signs Vital signs: Vital Signs Temp 97.3 F L 08/29/19 11:50 Pulse 76 08/29/19 11:50 Resp 18 08/29/19 11:50 BP 92/62 08/29/19 11:50 Pulse Ox 93 L 08/29/19 11:50 Intake & Output 08/28/19 08/29/19 08/29/19 18:59 06:59 18:59 Intake Total 200 100 Balance 200 100 Intake: Intake, IV Titration 200 100 Amount Ampicillin 1,000 mg In 100 100 Sodium Chloride 0.9% 50 ml @ 100 mls/hr IVPB Q12HR [facility] Rx#:[id number] Magnesium Sulfate-D5w Pmx 100 1 gm In Dextrose/Water 1 100ml.bag @ 100 mls/hr IVPB Q1H [facility] Rx#: [id number] Other: Voiding Method Bedside Commode Bedside Commode Bedside Commode Diaper Diaper Diaper Incontinent Incontinent Incontinent # Voids 0 0 1 # Bowel Movements 1 - Exam General: ill-appearing, no distress, appears at stated age Derm: warm, dry Head: atraumatic, normocephalic, symmetric Eyes: EOMI, no lid lag, anicteric sclera Mouth: no lip lesion, mucus membranes moist Cardiovascular: S1S2 reg, no murmur, positive posterior L, R BKA, Lungs: Decreased bs bilateral, no rhonchi, no rales , no accessory muscle use Abdominal: soft, + tender to palpation RUQ, no guarding, no appreciable organomegaly Ext: no gross muscle atrophy, no edema, no contractures Neuro: CN II-XI grossly intact, no focal neuro deficits Psych: Alert, oriented, appropriate affect - Labs CBC & Chem 7: 08/29/19 06:58 08/29/19 06:58 Labs: Abnormal Lab Results - Last 24 Hours (Table) 08/28/19 08/28/19 08/29/19 Range/Units 17:31 20:22 01:57 MCV (80.0-100.0) fL MCHC (31.0-37.0) g/dL RDW (11.5-15.5) % Sodium (137-145) mmol/L Chloride (98-107) mmol/L BUN (7-17) mg/dL Creatinine (0.52-1.04) mg/dL Glucose (74-99) mg/dL POC Glucose (mg/dL) 321 H 270 H 192 H (75-99) mg/dL Calcium (8.4-10.2) mg/dL 08/29/19 08/29/19 08/29/19 Range/Units 06:58 06:58 07:16 MCV 100.7 H (80.0-100.0) fL MCHC 29.9 L (31.0-37.0) g/dL RDW 17.4 H (11.5-15.5) % Sodium 133 L (137-145) mmol/L Chloride 95 L (98-107) mmol/L BUN 32 H (7-17) mg/dL Creatinine 10.06 H* (0.52-1.04) mg/dL Glucose 271 H (74-99) mg/dL POC Glucose (mg/dL) 265 H (75-99) mg/dL Calcium 7.2 L (8.4-10.2) mg/dL 08/29/19 Range/Units 11:12 MCV (80.0-100.0) fL MCHC (31.0-37.0) g/dL RDW (11.5-15.5) % Sodium (137-145) mmol/L Chloride (98-107) mmol/L BUN (7-17) mg/dL Creatinine (0.52-1.04) mg/dL Glucose (74-99) mg/dL POC Glucose (mg/dL) 240 H (75-99) mg/dL Calcium (8.4-10.2) mg/dL Microbiology - Last 24 Hours (Table) 08/28/19 19:00 Gram Stain - Preliminary Peritoneal Fluid Body Fluid Culture - Preliminary 08/26/19 19:43 Urine Culture - Final Urine,Catheterized Enterococcus faecium VRE 08/27/19 01:50 Blood Culture - Preliminary Blood No Growth after 48 hours 08/27/19 01:19 Gram Stain - Preliminary Peritoneal Fluid Body Fluid Culture - Preliminary Assessment and Plan Assessment: Abdominal pain suspect secondary to constipation, possible peritonitis - started on fortaz intraperitoneal per nephro -Improving -Additional dose of lactulose today -Continue with bowel regiment -Encourage oral fluid intake -Avoid narcotics -Suspect component of diabetic gastroparesis -Check gallbladder US End-stage renal disease on peritoneal hemodialysis - Nephro recs - Continue with PD Generalized weakness -PT/OT -PMR consultation Diabetes mellitus type 2, insulin-dependent chronically on pump -Pump on hold -A1c 7.5 -Sliding-scale insulin, Levemir added Anemia of chronic kidney disease -Hemoglobin currently at goal -Follow CBC -Outpatient follow-up Possible group D urinary tract infection -Initially on Rocephin which was changed to ampicillin -Infectious disease consulted Stage IV left heel ulcer -Santyl -ID recs -Debrided on 08/[address] Jaramillo Hypomagnesemia, resolved DVT prophylaxis: Heparin Discussed with: Patient, nursing Anticipated discharge: 1-[address]: home with HH VS IPR A total of 40 minutes was spent on the care of this complex patient more than 50% of the time was spent in counseling and care coordination.
[2019-08-29 16:38] LABS: Glucose,Whole Blood 165 mg/dL (75-99)
--- NOTE | 2019-08-29 17:22 | US ---
EXAMINATION TYPE: US gallbladder DATE OF EXAM: 08/29/2019 COMPARISON: CT 08/26/2019 CLINICAL HISTORY: 64-year-old female pain, gallstones. TECHNIQUE: Multiple sonographic images of the right upper quadrant are obtained. FINDINGS: Ostomy Rn notes: Difficult exam due to patient body habitus EXAM MEASUREMENTS: Liver Length: 14.8 cm Gallbladder Wall: 0.2 cm CBD: 0.3 cm Right Kidney: 8.5 x 4.1 x 4.3 cm Pancreas: Obscured by bowel gas Liver: Limited evaluation, visualized portions wnl Gallbladder: No stones visualized Evidence for sonographic Mcfarland's sign: No CBD: wnl as visualized Right Kidney: Measuring small, no hydronephrosis. No cystic or solid mass Mild abdominal ascites within the 4 abdominal quadrants. IMPRESSION: 1. Large patient body habitus causing technical limitations. Only portions of the liver could be seen . The pancreas is suboptimally visualized. 2. Mild abdominal ascites. These seems to be new compared to the CT of 08/26/2019. 3. No cholelithiasis or biliary ductal dilatation.
[2019-08-29] MEDS ORDERED: VANCOMYCIN 1,500 MG in SODIUM CHLORIDE 0.9% 250 ML IVPB ONE (18:00)
[2019-08-29] MEDS ORDERED: INSULIN DETEMIR (LEVEMIR) 100 UNIT/ML SYR SQ SCH (21:00)
--- NOTE | 2019-08-29 22:23 | PN ---
PROGRESS NOTE DATE OF SERVICE: 08/29/2019 REASON FOR FOLLOWUP: 1. Positive urine culture. 2. Left heel pressure ulcer. 3. Possible peritonitis. INTERVAL HISTORY: The patient is currently afebrile. The patient is breathing comfortably. The patient denies having any chest pain or any cough. Abdominal pain improved after the patient had bowel movement. No nausea, no vomiting and no urinary symptoms. PHYSICAL EXAMINATION: Blood pressure is 108/67 with a pulse of 88, temperature 97.7. She is 94% on 3 L nasal cannula. General description is an elderly female lying in bed in no distress. RESPIRATORY SYSTEM: Unlabored breathing. Clear to auscultation anteriorly. HEART: S1, S2. Regular rate and rhythm. ABDOMEN: Soft. No tenderness. Left heel wound has been debrided and did have blood-stained drainage. LABS: Hemoglobin is 12.7, white count 9.5. BUN of 32, creatinine 10.06. Urine culture has been finalized with VRE. Peritoneal fluid culture has been negative. DIAGNOSTIC IMPRESSION AND PLAN: 1. Patient with positive urine culture with vancomycin-resistant Enterococcus, possible contamination or colonization. The patient has no urinary symptoms. She is a dialysis patient and hardly makes any urine. No need for any specific treatment for the same. 2. Patient with left heel wound which has been debrided. Cultures obtained. Local care to continue with Santyl. 3. Patient with possible PD catheter-associated peritonitis in this patient with increasing cell count in the PD fluid. Continue with the vancomycin and Fortaz with dialysate. Case was discussed with Nephrology. Continue with supportive care. MMODL / IJN: [id number] /
[2019-08-29 22:39] LABS: Glucose,Whole Blood 186 mg/dL (75-99)
[2019-08-30] MEDS: HEPARIN SODIUM,PORCINE 5,000 UNIT/ML 1 ML VIAL SQ SCH ×4 (00:47→23:27)
[2019-08-30] MEDS: DIALYSIS (PERIT 2.5%) 2,000 ML 50 G/2,000 ML BAG INTRAPERIT SCH ×3 (01:33→17:53)
[2019-08-30] MEDS: ACETAMINOPHEN TAB 325 MG TAB PO PRN ×4 (02:31→23:27)
[2019-08-30 03:15] LABS: Glucose,Whole Blood 188 mg/dL (75-99)
[2019-08-30 07:29] LABS: Glucose,Whole Blood 235 mg/dL (75-99)
[2019-08-30] MEDS: LEVOTHYROXINE 75 MCG TAB PO SCH (07:42)
[2019-08-30 08:18] LABS: Anisocytosis Slight; HCT 37.1 % (34.0-46.0); HGB 10.6 gm/dL (11.4-16.0); Hypochromasia Marked; MCH 28.2 pg (25.0-35.0); MCHC 28.5 g/dL (31.0-37.0); MCV 99.1 fL (80.0-100.0); Macrocytosis Slight; Mean Platelet Volume 9.7; Platelet Count 266 k/uL (150-450); RBC 3.74 m/uL (3.80-5.40); WBC 8.2 k/uL (3.8-10.6)
[2019-08-30 08:25] LABS: Calcium 6.9 mg/dL (8.4-10.2); Magnesium 1.8 mg/dL (1.6-2.3); Potassium 3.3 mmol/L (3.5-5.1)
[2019-08-30] MEDS: INSULIN ASPART (NovoLOG) 100 UNIT/ML VIAL SQ SCH ×5 (09:30→21:31)
[2019-08-30] MEDS: CLOPIDOGREL 75 MG TAB PO SCH (09:30)
[2019-08-30] MEDS: METOPROLOL TARTRATE 25 MG TAB PO SCH ×2 (09:30→19:51)
[2019-08-30] MEDS: CALCIUM ACETATE 667 MG TAB PO SCH ×3 (09:30→17:39)
[2019-08-30] MEDS: COLLAGENASE 250 UNIT/GM OINTMENT 30 GM TUBE TOPICAL SCH (09:30)
[2019-08-30] MEDS: PREGABALIN 25 MG CAP PO SCH ×2 (09:30→19:55)
[2019-08-30] MEDS: TORSEMIDE 20 MG TAB PO SCH (09:31)
[2019-08-30] MEDS: PANTOPRAZOLE 40 MG TABLET PO SCH (09:31)
[2019-08-30 11:33] LABS: Glucose,Whole Blood 249 mg/dL (75-99)
[2019-08-30] MEDS: cefTAZidime 1.25 GM in DIALYSIS (PERITONL) DEX 2.5% 2,000 ML INTRAPERIT SCH (12:17)
--- NOTE | 2019-08-30 13:55 | P.PN ---
Subjective Progress Note Date: 08/30/19 Follow-up for ESRD. Peritoneal dialysis working good but still complaining of abdominal discomfort. Fluid looks clear Objective - Vital Signs Vital signs: Vital Signs Temp 98.2 F 08/30/19 12:10 Pulse 67 08/30/19 13:24 Resp 15 08/30/19 12:10 BP 94/52 08/30/19 13:24 Pulse Ox 98 08/30/19 13:24 Intake & Output 08/29/19 08/30/19 08/30/19 18:59 06:59 18:59 Intake Total 100 50 Balance 100 50 Intake: Intake, IV Titration 100 Amount Ampicillin 1,000 mg In 100 Sodium Chloride 0.9% 50 ml @ 100 mls/hr IVPB Q12HR [facility] Rx#:[id number] Oral 50 Other: Voiding Method Bedside Commode Bedside Commode Bedside Commode Diaper Diaper Diaper Incontinent Incontinent Incontinent # Voids 1 2 # Bowel Movements 1 - Exam Acute distress S1-S2 heard Lungs clear PD catheter Trace edema - Labs CBC & Chem 7: 08/30/19 07:41 08/30/19 06:34 Labs: Abnormal Lab Results - Last 24 Hours (Table) 08/29/19 08/29/19 08/30/19 Range/Units 16:37 21:54 03:13 RBC (3.80-5.40) m/uL Hgb (11.4-16.0) gm/dL MCHC (31.0-37.0) g/dL RDW (11.5-15.5) % Sodium (137-145) mmol/L Potassium (3.5-5.1) mmol/L Chloride (98-107) mmol/L BUN (7-17) mg/dL Creatinine (0.52-1.04) mg/dL Glucose (74-99) mg/dL POC Glucose (mg/dL) 165 H 186 H 188 H (75-99) mg/dL Calcium (8.4-10.2) mg/dL 08/30/19 08/30/19 08/30/19 Range/Units 06:34 07:27 07:41 RBC 3.74 L (3.80-5.40) m/uL Hgb 10.6 L (11.4-16.0) gm/dL MCHC 28.5 L (31.0-37.0) g/dL RDW 18.0 H (11.5-15.5) % Sodium 133 L (137-145) mmol/L Potassium 3.3 L (3.5-5.1) mmol/L Chloride 97 L (98-107) mmol/L BUN 34 H (7-17) mg/dL Creatinine 10.56 H* (0.52-1.04) mg/dL Glucose 221 H (74-99) mg/dL POC Glucose (mg/dL) 235 H (75-99) mg/dL Calcium 6.9 L (8.4-10.2) mg/dL 08/30/19 Range/Units 11:32 RBC (3.80-5.40) m/uL Hgb (11.4-16.0) gm/dL MCHC (31.0-37.0) g/dL RDW (11.5-15.5) % Sodium (137-145) mmol/L Potassium (3.5-5.1) mmol/L Chloride (98-107) mmol/L BUN (7-17) mg/dL Creatinine (0.52-1.04) mg/dL Glucose (74-99) mg/dL POC Glucose (mg/dL) 249 H (75-99) mg/dL Calcium (8.4-10.2) mg/dL Microbiology - Last 24 Hours (Table) 08/27/19 01:50 Blood Culture - Preliminary Blood No Growth after 72 hours 08/29/19 12:53 Gram Stain - Preliminary Foot - Left Tissue Culture - Preliminary 08/29/19 12:51 Anaerobic Culture - Preliminary Heel - Left 08/28/19 19:00 Gram Stain - Preliminary Peritoneal Fluid Body Fluid Culture - Preliminary Assessment and Plan Assessment: #1 abdominal pain with a concern for peritonitis. #2 ESRD on PD. 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 #2 status post vancomycin continue with Fortaz daily.
--- NOTE | 2019-08-30 14:34 | P.PN ---
Subjective Progress Note Date: 08/30/19 (delayed cahrting seen at 0900) Principal diagnosis: abdominal pain Patient is 64-year-old -[place] female with diabetes mellitus type 2 requiring insulin pump, end-stage renal disease on peritoneal dialysis, hypertension, dyslipidemia, GERD, and memory impairment who presented to the emergency department with complaints of 5 days of abdominal pain. Of note patient has been hospitalized multiple times over the last month secondary to abdominal pain initially she was found to have peritonitis and was treated with intraperitoneal antibiotics. At her next admission she had altered mentation which was felt to be secondary to pain medications in conjunction with her peritoneal dialysis. She was unable to be placed at [facility] secondary to needing peritoneal dialysis. She then reported to our facility on 08/25 with again 5 days of abdominal pain. In the ER she was found to have vital signs within normal limits. Laboratory analysis was consistent with her known end-stage renal disease, urinalysis showed elevated white blood cell count however patient does not routinely urinate. Covid testing was negative. CT abdomen and pelvis showed no acute process. She was admitted for possible peritonitis was started on empiric vancomycin Rocephin. Her peritoneal fluid came back negative for infection. She was seen by nephrology who recommending continuing peritoneal dialysis. Urine came back with possible group D enterococcus urinary tract infection. Patient's Rocephin was switched to ampicillin and infectious disease was consulted. Infectious disease discontinued antibiotics as they Clinically doubted symptomatic urinary tract infection. She continued to have nausea and vomiting through 08/27. She was feeling better on 08/28 but continued to have abdominal pain, nephrology was concerned about peritonitis as the WBC count was increased and she was started on intraperitoneal fortaz again. She had a right upper quadrant ultrasound which did not show any signs of biliary disease. Patient seen and examined at bedside. She had several bowel movements yesterday, still is having abdominal pain across her upper abdomen and most int ense in her right upper quadrant. No chest pain, shortness of breath, cough. Objective - Vital Signs Vital signs: Vital Signs Temp 98.2 F 08/30/19 12:10 Pulse 67 08/30/19 13:24 Resp 15 08/30/19 12:10 BP 94/52 08/30/19 13:24 Pulse Ox 98 08/30/19 13:24 Intake & Output 08/29/19 08/30/19 08/30/19 18:59 06:59 18:59 Intake Total 100 50 600 Balance 100 50 600 Intake: Intake, IV Titration 100 Amount Ampicillin 1,000 mg In 100 Sodium Chloride 0.9% 50 ml @ 100 mls/hr IVPB Q12HR [facility] Rx#:[id number] Oral 50 600 Other: Voiding Method Bedside Commode Bedside Commode Bedside Commode Diaper Diaper Diaper Incontinent Incontinent Incontinent # Voids 1 2 1 # Bowel Movements 1 1 - Exam General: non toxic, no distress, appears at stated age Derm: warm, dry Head: atraumatic, normocephalic, symmetric Eyes: EOMI, no lid lag, anicteric sclera Mouth: no lip lesion, mucus membranes moist Cardiovascular: S1S2 reg, no murmur, positive posterior L, R BKA, Lungs: Decreased bs bilateral, no rhonchi, no rales , no accessory muscle use Abdominal: soft, + tender to palpation RUQ, no guarding, no appreciable organomegaly Ext: no gross muscle atrophy, no edema, no contractures Neuro: CN II-XI grossly intact, no focal neuro deficits Psych: Alert, oriented, appropriate affect - Labs CBC & Chem 7: 08/30/19 07:41 08/30/19 06:34 Labs: Abnormal Lab Results - Last 24 Hours (Table) 08/29/19 08/29/19 08/30/19 Range/Units 16:37 21:54 03:13 RBC (3.80-5.40) m/uL Hgb (11.4-16.0) gm/dL MCHC (31.0-37.0) g/dL RDW (11.5-15.5) % Sodium (137-145) mmol/L Potassium (3.5-5.1) mmol/L Chloride (98-107) mmol/L BUN (7-17) mg/dL Creatinine (0.52-1.04) mg/dL Glucose (74-99) mg/dL POC Glucose (mg/dL) 165 H 186 H 188 H (75-99) mg/dL Calcium (8.4-10.2) mg/dL 08/30/19 08/30/19 08/30/19 Range/Units 06:34 07:27 07:41 RBC 3.74 L (3.80-5.40) m/uL Hgb 10.6 L (11.4-16.0) gm/dL MCHC 28.5 L (31.0-37.0) g/dL RDW 18.0 H (11.5-15.5) % Sodium 133 L (137-145) mmol/L Potassium 3.3 L (3.5-5.1) mmol/L Chloride 97 L (98-107) mmol/L BUN 34 H (7-17) mg/dL Creatinine 10.56 H* (0.52-1.04) mg/dL Glucose 221 H (74-99) mg/dL POC Glucose (mg/dL) 235 H (75-99) mg/dL Calcium 6.9 L (8.4-10.2) mg/dL 08/30/19 Range/Units 11:32 RBC (3.80-5.40) m/uL Hgb (11.4-16.0) gm/dL MCHC (31.0-37.0) g/dL RDW (11.5-15.5) % Sodium (137-145) mmol/L Potassium (3.5-5.1) mmol/L Chloride (98-107) mmol/L BUN (7-17) mg/dL Creatinine (0.52-1.04) mg/dL Glucose (74-99) mg/dL POC Glucose (mg/dL) 249 H (75-99) mg/dL Calcium (8.4-10.2) mg/dL Microbiology - Last 24 Hours (Table) 08/27/19 01:50 Blood Culture - Preliminary Blood No Growth after 72 hours 08/29/19 12:53 Gram Stain - Preliminary Foot - Left Tissue Culture - Preliminary 08/29/19 12:51 Anaerobic Culture - Preliminary Heel - Left 08/28/19 19:00 Gram Stain - Preliminary Peritoneal Fluid Body Fluid Culture - Preliminary Assessment and Plan Assessment: Abdominal pain suspect secondary to possible peritonitis and constipation - started on fortaz intraperitoneal per nephro -Improving -lactulose as needed -Encourage oral fluid intake -Avoid narcotics -Suspect component of diabetic gastroparesis -gallbladder US negative - Peritoneal fluid culture pendin End-stage renal disease on peritoneal hemodialysis - Nephro recs - Continue with PD Generalized weakness -PT/OT -PMR consultation Diabetes mellitus type 2, insulin-dependent chronically on pump -Pump on hold -A1c 7.5 -Sliding-scale insulin, Levemir increased, Novolog fixed dose added Anemia of chronic kidney disease -Hemoglobin currently at goal -Follow CBC -Outpatient follow-up Stage IV left heel ulcer -Santyl -ID recs -Debrided on 08/[address] Jaramillo Hypomagnesemia, resolved Possible group D urinary tract infection, ruled out DVT prophylaxis: Heparin Discussed with: Patient, nursing Anticipated discharge: 2-[address]: home with HH VS IPR A total of 35 minutes was spent on the care of this complex patient more than 50% of the time was spent in counseling and care coordination.
[2019-08-30 17:04] LABS: Glucose,Whole Blood 207 mg/dL (75-99)
[2019-08-30 20:19] LABS: Glucose,Whole Blood 227 mg/dL (75-99)
[2019-08-30] MEDS ORDERED: INSULIN DETEMIR (LEVEMIR) 100 UNIT/ML SYR SQ SCH (21:00)
--- NOTE | 2019-08-30 22:15 | PN ---
PROGRESS NOTE DATE OF SERVICE: 08/30/2019 REASON FOR FOLLOWUP: 1. Possible PD catheter associated peritonitis. 2. Left heel wound. INTERVAL HISTORY: The patient is currently afebrile. She is breathing comfortably. Still complaining of pain in the upper abdominal area, more on the right side and some nausea but no vomiting. No chest pain, shortness of breath or cough. No pain to the left heel area. PHYSICAL EXAMINATION: Blood pressure 137/55 with a pulse of 67, temperature of 98.2. She is 98% on 2 L nasal cannula. General description is an elderly female lying in bed in no distress. Respiratory system: Unlabored breathing. Clear to auscultation anteriorly. Heart S1, S2. Regular rate and rhythm. ABDOMEN: Soft, no guarding, rigidity. Left heel is currently dressed up. LABS: Hemoglobin is 10.2, white count 8.2. DIAGNOSTIC IMPRESSION AND PLAN: 1. Patient with abdominal pain with a question of possible PD catheter associated peritonitis/noticed increasing white count. Repeat cell count. Culture will be requested from PD fluid. Continue Fortaz and vancomycin. 2. Patient with left heel pressure ulcer with no definite cellulitis. Local care to continue with Santyl followed by moist dressing. 3. Continue supportive care. MMODL / IJN: [id number] /
[2019-08-31] MEDS: DIALYSIS (PERIT 2.5%) 2,000 ML 50 G/2,000 ML BAG INTRAPERIT SCH ×3 (00:05→17:52)
[2019-08-31] MEDS: ONDANSETRON 4 MG/2 ML VIAL IVP PRN (01:55)
[2019-08-31] MEDS: HYDROmorphone 1 MG/ML 1 ML SYRINGE IVP PRN ×5 (01:58→19:04)
[2019-08-31 02:03] LABS: Glucose,Whole Blood 230 mg/dL (75-99)
[2019-08-31] MEDS: LEVOTHYROXINE 75 MCG TAB PO SCH (05:35)
[2019-08-31 07:26] LABS: Glucose,Whole Blood 275 mg/dL (75-99)
[2019-08-31 08:49] LABS: Anisocytosis Slight; HCT 37.8 % (34.0-46.0); HGB 11.1 gm/dL (11.4-16.0); Hypochromasia Marked; MCH 29.4 pg (25.0-35.0); MCHC 29.2 g/dL (31.0-37.0); MCV 100.4 fL (80.0-100.0); Macrocytosis Slight; Mean Platelet Volume 9.4; Platelet Count 268 k/uL (150-450); RBC 3.76 m/uL (3.80-5.40); RDW 17.4 % (11.5-15.5); WBC 8.8 k/uL (3.8-10.6)
[2019-08-31 09:05] LABS: Calcium 6.7 mg/dL (8.4-10.2); Potassium 3.2 mmol/L (3.5-5.1)
[2019-08-31] MEDS: ACETAMINOPHEN TAB 325 MG TAB PO PRN (10:20)
[2019-08-31] MEDS: CLOPIDOGREL 75 MG TAB PO SCH (10:22)
[2019-08-31] MEDS: TORSEMIDE 20 MG TAB PO SCH (10:22)
[2019-08-31] MEDS: PANTOPRAZOLE 40 MG TABLET PO SCH (10:22)
[2019-08-31] MEDS: CALCIUM ACETATE 667 MG TAB PO SCH ×3 (10:22→17:24)
[2019-08-31] MEDS: METOPROLOL TARTRATE 25 MG TAB PO SCH ×2 (10:22→21:47)
[2019-08-31] MEDS: PREGABALIN 25 MG CAP PO SCH ×2 (10:23→22:14)
[2019-08-31] MEDS: INSULIN ASPART (NovoLOG) 100 UNIT/ML VIAL SQ SCH ×7 (10:23→21:50)
[2019-08-31] MEDS: HEPARIN SODIUM,PORCINE 5,000 UNIT/ML 1 ML VIAL SQ SCH ×2 (10:24→17:24)
[2019-08-31] MEDS: COLLAGENASE 250 UNIT/GM OINTMENT 30 GM TUBE TOPICAL SCH (10:27)
[2019-08-31] MEDS: CYCLOBENZAPRINE 5 MG TAB PO PRN (10:32)
[2019-08-31 11:45] LABS: Glucose,Whole Blood 208 mg/dL (75-99)
[2019-08-31] MEDS: cefTAZidime 1.25 GM in DIALYSIS (PERITONL) DEX 2.5% 2,000 ML INTRAPERIT SCH (12:21)
--- NOTE | 2019-08-31 14:05 | P.PN ---
Subjective Progress Note Date: 08/31/19 Follow-up for ESRD. Peritoneal dialysis working good but still complaining of abdominal discomfort. Objective - Vital Signs Vital signs: Vital Signs Temp 97.9 F 08/31/19 11:42 Pulse 66 08/31/19 11:42 Resp 19 08/31/19 11:42 BP 92/54 08/31/19 12:12 Pulse Ox 99 08/31/19 11:42 Intake & Output 08/30/19 08/31/19 08/31/19 18:59 06:59 18:59 Intake Total 600 200 Balance 600 200 Intake: Oral 600 200 Other: Voiding Method Bedside Commode Bedside Commode Bedside Commode Diaper Incontinent Incontinent Incontinent # Voids 1 0 # Bowel Movements 1 - Exam Acute distress S1-S2 heard Lungs clear PD catheter Trace edema - Labs CBC & Chem 7: 08/31/19 08:30 08/31/19 08:30 Labs: Abnormal Lab Results - Last 24 Hours (Table) 08/30/19 08/30/19 08/31/19 Range/Units 17:02 20:18 01:43 RBC (3.80-5.40) m/uL Hgb (11.4-16.0) gm/dL MCV (80.0-100.0) fL MCHC (31.0-37.0) g/dL RDW (11.5-15.5) % Sodium (137-145) mmol/L Potassium (3.5-5.1) mmol/L Chloride (98-107) mmol/L BUN (7-17) mg/dL Creatinine (0.52-1.04) mg/dL Glucose (74-99) mg/dL POC Glucose (mg/dL) 207 H 227 H 230 H (75-99) mg/dL Calcium (8.4-10.2) mg/dL 08/31/19 08/31/19 08/31/19 Range/Units 07:26 08:30 08:30 RBC 3.76 L (3.80-5.40) m/uL Hgb 11.1 L (11.4-16.0) gm/dL MCV 100.4 H (80.0-100.0) fL MCHC 29.2 L (31.0-37.0) g/dL RDW 17.4 H (11.5-15.5) % Sodium 133 L (137-145) mmol/L Potassium 3.2 L (3.5-5.1) mmol/L Chloride 96 L (98-107) mmol/L BUN 34 H (7-17) mg/dL Creatinine 10.28 H* (0.52-1.04) mg/dL Glucose 266 H (74-99) mg/dL POC Glucose (mg/dL) 275 H (75-99) mg/dL Calcium 6.7 L (8.4-10.2) mg/dL 08/31/19 Range/Units 11:44 RBC (3.80-5.40) m/uL Hgb (11.4-16.0) gm/dL MCV (80.0-100.0) fL MCHC (31.0-37.0) g/dL RDW (11.5-15.5) % Sodium (137-145) mmol/L Potassium (3.5-5.1) mmol/L Chloride (98-107) mmol/L BUN (7-17) mg/dL Creatinine (0.52-1.04) mg/dL Glucose (74-99) mg/dL POC Glucose (mg/dL) 208 H (75-99) mg/dL Calcium (8.4-10.2) mg/dL Microbiology - Last 24 Hours (Table) 08/29/19 12:51 Anaerobic Culture - Preliminary Heel - Left Yeast species 08/29/19 12:53 Gram Stain - Preliminary Foot - Left Tissue Culture - Preliminary Enterococcus faecalis VRE Coagulase Negative Staph Diphtheroid species Gram Neg Bacilli 08/27/19 01:50 Blood Culture - Preliminary Blood No Growth after 96 hours Assessment and Plan Assessment: #1 abdominal pain with a concern for peritonitis. #2 ESRD on PD. 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 #2 status post vancomycin continue with Fortaz daily.Awaiting cultures.
[2019-08-31 15:37] LABS: Appearance,BF Clear; Color,BF Colorless; Nucleated Cells, Body Fluid 59 /uL; RBC, Body Fluid 7 /uL
--- NOTE | 2019-08-31 15:44 | P.PN ---
Subjective Progress Note Date: 08/31/19 (delayed charting seen at 0955) Principal diagnosis: abdominal pain Patient is 64-year-old -[place] female with diabetes mellitus type 2 requiring insulin pump, end-stage renal disease on peritoneal dialysis, hypertension, dyslipidemia, GERD, and memory impairment who presented to the emergency department with complaints of 5 days of abdominal pain. Of note patient has been hospitalized multiple times over the last month secondary to abdominal pain initially she was found to have peritonitis and was treated with intraperitoneal antibiotics. At her next admission she had altered mentation which was felt to be secondary to pain medications in conjunction with her peritoneal dialysis. She was unable to be placed at [facility] facility secondary to needing peritoneal dialysis. She then reported to our facility on 08/25 with again 5 days of abdominal pain. In the ER she was found to have vital signs within normal limits. Laboratory analysis was consistent with her known end-stage renal disease, urinalysis showed elevated white blood cell count however patient does not routinely urinate. Covid testing was negative. CT abdomen and pelvis showed no acute process. She was admitted for possible peritonitis was started on empiric vancomycin Rocephin. Her peritoneal fluid came back negative for infection. She was seen by nephrology who recommending continuing peritoneal dialysis. Urine came back with possible group D enterococcus urinary tract infection. Patient's Rocephin was switched to ampicillin and infectious disease was consulted. Infectious disease discontinued antibiotics as they Clinically doubted symptomatic urinary tract infection. She continued to have nausea and vomiting through 08/27. She was feeling better on 08/28 but continued to have abdominal pain, nephrology was concerned about peritonitis as the WBC count was increased and she was started on intraperitoneal fortaz again. She had a right upper quadrant ultrasound which did not show any signs of biliary disease. She continued to complain of abdominal pain especially on instil and drainage. Patient seen and examined at bedside. No additional bowel movements yesterday, having severe abdominal pain that is worse when she is instilling and draining her peritoneal fluid, no additional nausea and vomiting, no diarrhea. Objective - Vital Signs Vital signs: Vital Signs Temp 97.9 F 08/31/19 11:42 Pulse 66 08/31/19 11:42 Resp 19 08/31/19 11:42 BP 92/54 08/31/19 12:12 Pulse Ox 99 08/31/19 11:42 Intake & Output 0508/31/19 08/31/19 18:59 06:59 18:59 Intake Total 600 200 Balance 600 200 Intake: Oral 600 200 Other: Voiding Method Bedside Commode Bedside Commode Bedside Commode Diaper Incontinent Incontinent Incontinent # Voids 1 0 # Bowel Movements 1 - Exam General: non toxic, no distress, appears at stated age Derm: warm, dry Head: atraumatic, normocephalic, symmetric Eyes: EOMI, no lid lag, anicteric sclera Mouth: no lip lesion, mucus membranes moist Cardiovascular: S1S2 reg, no murmur, positive posterior L, R BKA, Lungs: Decreased bs bilateral, no rhonchi, no rales , no accessory muscle use Abdominal: soft, + tender to palpation right and left upper quadrants, no gu arding, no appreciable organomegaly Ext: no gross muscle atrophy, no edema, no contractures Neuro: CN II-XI grossly intact, no focal neuro deficits Psych: Alert, oriented, appropriate affect - Labs CBC & Chem 7: 08/31/19 08:30 08/31/19 08:30 Labs: Abnormal Lab Results - Last 24 Hours (Table) 08/30/19 08/30/19 08/31/19 Range/Units 17:02 20:18 01:43 RBC (3.80-5.40) m/uL Hgb (11.4-16.0) gm/dL MCV (80.0-100.0) fL MCHC (31.0-37.0) g/dL RDW (11.5-15.5) % Sodium (137-145) mmol/L Potassium (3.5-5.1) mmol/L Chloride (98-107) mmol/L BUN (7-17) mg/dL Creatinine (0.52-1.04) mg/dL Glucose (74-99) mg/dL POC Glucose (mg/dL) 207 H 227 H 230 H (75-99) mg/dL Calcium (8.4-10.2) mg/dL 08/31/19 08/31/19 08/31/19 Range/Units 07:26 08:30 08:30 RBC 3.76 L (3.80-5.40) m/uL Hgb 11.1 L (11.4-16.0) gm/dL MCV 100.4 H (80.0-100.0) fL MCHC 29.2 L (31.0-37.0) g/dL RDW 17.4 H (11.5-15.5) % Sodium 133 L (137-145) mmol/L Potassium 3.2 L (3.5-5.1) mmol/L Chloride 96 L (98-107) mmol/L BUN 34 H (7-17) mg/dL Creatinine 10.28 H* (0.52-1.04) mg/dL Glucose 266 H (74-99) mg/dL POC Glucose (mg/dL) 275 H (75-99) mg/dL Calcium 6.7 L (8.4-10.2) mg/dL 08/31/19 Range/Units 11:44 RBC (3.80-5.40) m/uL Hgb (11.4-16.0) gm/dL MCV (80.0-100.0) fL MCHC (31.0-37.0) g/dL RDW (11.5-15.5) % Sodium (137-145) mmol/L Potassium (3.5-5.1) mmol/L Chloride (98-107) mmol/L BUN (7-17) mg/dL Creatinine (0.52-1.04) mg/dL Glucose (74-99) mg/dL POC Glucose (mg/dL) 208 H (75-99) mg/dL Calcium (8.4-10.2) mg/dL Microbiology - Last 24 Hours (Table) 08/29/19 12:53 Gram Stain - Preliminary Foot - Left Tissue Culture - Preliminary Enterococcus faecalis VRE Enterococcus faecium VRE Coagulase Negative Staph Diphtheroid species Gram Neg Bacilli 08/29/19 12:51 Anaerobic Culture - Preliminary Heel - Left Yeast species 08/27/19 01:50 Blood Culture - Preliminary Blood No Growth after 96 hours Assessment and Plan Assessment: Abdominal pain suspect secondary to possible peritonitis and constipation - Due to continued pain will recheck peritoneal fluid for improvement in cell count review of peritoneal culture from last admission did show both staph epi and proteus and S. epi was resistent to ampicillin and cefazolin - fortaz intraperitoneal per nephro, had intraperitoneal vanco on 08/26 (? need additional dose tomorrow) - lactulose as needed, has started having bowel movements and - Encourage oral fluid intake - Avoid narcotics, trial of Flexeril for pain - Suspect component of diabetic gastroparesis - gallbladder US negative - Peritoneal fluid culture pending End-stage renal disease on peritoneal hemodialysis - Nephro recs - Continue with PD Diabetes mellitus type 2, insulin-dependent chronically on pump -Pump on hold -A1c 7.5 -Sliding-scale insulin, Levemir increased again , Novolog fixed dose added Generalized weakness -PT/OT -PMR consultation Anemia of chronic kidney disease -Hemoglobin currently at goal -Follow CBC -Outpatient follow-up Stage IV left heel ulcer -Santyl -ID recs -Debrided on 08/[address] Jaramillo Hypomagnesemia, resolved Possible group D urinary tract infection, ruled out DVT prophylaxis: Heparin Discussed with: Patient, nursing Anticipated discharge: 1-2days Anticipated discharge place: home with HH VS IPR A total of 35 minutes was spent on the care of this complex patient more than 50% of the time was spent in counseling and care coordination.
[2019-08-31 16:02] LABS: Mononuclear WBC,Body Fluid 21 %; Polynuclear WBC,Body Fluid 65 %; Total Cells Counted,Body Fluid 100
[2019-08-31 17:23] LABS: Glucose,Whole Blood 129 mg/dL (75-99)
[2019-08-31 20:08] LABS: Glucose,Whole Blood 271 mg/dL (75-99)
[2019-08-31] MEDS ORDERED: INSULIN DETEMIR (LEVEMIR) 100 UNIT/ML SYR SQ SCH (21:00)
--- NOTE | 2019-09-01 00:04 | PN ---
PROGRESS NOTE DATE OF SERVICE: 08/31/2019 REASON FOR FOLLOWUP: 1. Possible peritonitis. 2. Left heel wound. INTERVAL HISTORY: The patient is currently afebrile. The patient currently complains of pain abdominal pain to be her main symptom. No vomiting or diarrhea has been reported. No chest pain or shortness of breath or cough or pain to the left heel. PHYSICAL EXAMINATION: Blood pressure 92/54 with a pulse of 66, temperature 97.9. She is 99% on room air. General description is an elderly female lying in bed in no distress. RESPIRATORY SYSTEM: Unlabored breathing, clear to auscultation anteriorly. HEART: S1, S2. Regular rate and rhythm. ABDOMEN: Soft, mildly distended. No guarding or rigidity. Left heel wound looks some slough tissue but no redness or any foul-smelling drainage. LABS: Hemoglobin 11.1, white count 8.8. BUN of 34, creatinine 10.28. The white cell has down to 59 in the peritoneal dialysate and left heel culture with multiple pathogen. DIAGNOSTIC IMPRESSION AND PLAN: 1. Patient with left heel pressure ulcer stage III, status post debridement. The wound base looks clean with no cellulitis. Culture did grow multiple pathogen more likely colonization. No need for any systemic antibiotic therapy for the same. Local care to continue Santyl. Keep the area off the pressure. 2. Patient with persistent abdominal pain with mildly elevated white count in the peritoneal fluid could be related to her chronic peritonitis. May benefit from discontinuation of peritoneal dialysis and going on hemodialysis. Continue Fortaz for now in the dialysate and monitor clinical course closely. MMODL / IJN: [id number] /
[2019-09-01] MEDS: HEPARIN SODIUM,PORCINE 5,000 UNIT/ML 1 ML VIAL SQ SCH ×4 (00:08→23:32)
[2019-09-01] MEDS: DIALYSIS (PERIT 2.5%) 2,000 ML 50 G/2,000 ML BAG INTRAPERIT SCH ×4 (00:14→22:11)
[2019-09-01] MEDS: HYDROmorphone 1 MG/ML 1 ML SYRINGE IVP PRN (00:47)
[2019-09-01 02:23] LABS: Glucose,Whole Blood 174 mg/dL (75-99)
[2019-09-01] MEDS: LEVOTHYROXINE 75 MCG TAB PO SCH (05:26)
[2019-09-01] MEDS: CYCLOBENZAPRINE 5 MG TAB PO PRN (05:26)
[2019-09-01 07:05] LABS: Glucose,Whole Blood 180 mg/dL (75-99)
[2019-09-01 09:01] LABS: Anisocytosis Slight; Basophils % (A) 0 %; Eosinophils # (A) 0.2 k/uL (0-0.7); Eosinophils % (A) 1 %; HCT 38.8 % (34.0-46.0); HGB 11.5 gm/dL (11.4-16.0); Hypochromasia Marked; Lymphocytes # (A) 0.7 k/uL (1.0-4.8); Lymphocytes % (A) 6 %; MCH 29.2 pg (25.0-35.0); MCHC 29.7 g/dL (31.0-37.0); MCV 98.1 fL (80.0-100.0); Macrocytosis Slight; Mean Platelet Volume 10.5; Monocytes # (A) 0.5 k/uL (0-1.0); Monocytes % (A) 5 %; Neutrophils # (A) 9.2 k/uL (1.3-7.7); Neutrophils % (A) 87 %; Platelet Count 350 k/uL (150-450); RBC 3.96 m/uL (3.80-5.40); RDW 17.7 % (11.5-15.5); WBC 10.7 k/uL (3.8-10.6)
[2019-09-01 09:14] LABS: Calcium 6.9 mg/dL (8.4-10.2); Potassium 3.6 mmol/L (3.5-5.1)
[2019-09-01] MEDS: INSULIN ASPART (NovoLOG) 100 UNIT/ML VIAL SQ SCH ×7 (10:04→21:12)
[2019-09-01] MEDS: ACETAMINOPHEN TAB 325 MG TAB PO PRN (10:05)
[2019-09-01] MEDS: TORSEMIDE 20 MG TAB PO SCH (10:05)
[2019-09-01] MEDS: METOPROLOL TARTRATE 25 MG TAB PO SCH ×2 (10:06→20:55)
[2019-09-01] MEDS: PREGABALIN 25 MG CAP PO SCH ×2 (10:06→21:14)
[2019-09-01] MEDS: CALCIUM ACETATE 667 MG TAB PO SCH ×3 (10:06→17:17)
[2019-09-01] MEDS: PANTOPRAZOLE 40 MG TABLET PO SCH (10:06)
[2019-09-01] MEDS: CLOPIDOGREL 75 MG TAB PO SCH ×2 (10:06→12:17)
[2019-09-01] MEDS: COLLAGENASE 250 UNIT/GM OINTMENT 30 GM TUBE TOPICAL SCH (10:11)
[2019-09-01 10:40] VITALS: BMI 34.0
[2019-09-01 12:08] LABS: Glucose,Whole Blood 134 mg/dL (75-99)
--- NOTE | 2019-09-01 12:11 | P.GSCN ---
<Radha Sutton - Last Filed: 09/01/19 12:04> History of Present Illness Consult date: 09/01/19 Reason for Consult: PD cath removal Requesting physician: Lianet Loja History of present illness: CHIEF COMPLAINT: PD catheter removal HISTORY OF PRESENT ILLNESS: 64-year-old female admitted to the hospital secondary to abdominal pain. Patient is a history of end-stage renal disease on peritoneal dialysis. Peritoneal fluid was cultured on 08/28/19 and was positive for yeast. General surgery was consulted for removal of PD catheter. Patient examined at the bedside. She reports generalized abdominal pain and is tearful during examination. PAST MEDICAL HISTORY: See list. PAST SURGICAL HISTORY: See list. SOCIAL HISTORY: No illicit drug use. REVIEW OF SYSTEMS: CONSTITUTIONAL: Denies fever or chills. HEENT: Denies blurred vision, vision changes, or eye pain. Denies hemoptysis CARDIOVASCULAR: Denies chest pain or pressure. RESPIRATORY: No shortness of breath. GASTROINTESTINAL: Refer to HPI for pertinent findings HEMATOLOGIC: Denies bleeding disorders. GENITOURINARY: Denies any blood in urine. SKIN: Denies pruitis. Denies rash. PHYSICAL EXAM: VITAL SIGNS: Reviewed. GENERAL: Well-developed in no acute distress. HEENT: No sclera icterus. Extraocular movements grossly intact. Moist buccal mucosa. Head is atraumatic, normocephalic. ABDOMEN: Soft. Nondistended. Mild diffuse tenderness. PD catheter to right lower quadrant noted. NEUROLOGIC: Alert and oriented. Cranial nerves II through XII grossly intact. LABORATORY DATA: WBC 10.7. Hemoglobin 11.5. Platelet count 350. BUN 40. Creatinine 11.07. ASSESSMENT: 1. Abdominal pain with possible peritonitis, peritoneal fluid positive for yeast 2. End-stage renal disease on peritoneal dialysis PLAN: Hold plavix NPO Patient to undergo removal of PD catheter with Dr. Strickland (today vs tomorrow) Nurse practitioner note has been reviewed by physician. Signing provider agrees with the documented findings, assessment, and plan of care. Past Medical History Past Medical History: Diabetes Mellitus, Dialysis, GERD/Reflux, Hyperlipidemia, Hypertension, Memory Impairment, Renal Disease, Thyroid Disorder Additional Past Medical History / Comment(s): peritoneal dialysis daily over night. hx steel syndrome left hand-please use rt arm/hand for iv, blood draws. diabetic neuropathy and diabetic retinopathy, Rt BKA uses prosthesis. 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 neck cervical 4,5,6 fused. graft tie off 04/05/2017, eye laser surgery for diabetic retinopathy Past Anesthesia/Blood Transfusion Reactions: No Reported Reaction Past Psychological History: Anxiety, Depression Smoking Status: Never smoker Past Alcohol Use History: None Reported Past Drug Use History: None Reported - Past Family History Mother Family Medical History: Diabetes Mellitus, Hypertension Additional Family Medical History / Comment(s): colon ca Father Family Medical History: Myocardial Infarction ([place]) Medications and Allergies Home Medications Medication Instructions Recorded Confirmed Type Levothyroxine Sodium [Synthroid] 75 mcg PO DAILY 10/09/16 08/26/19 History Pantoprazole [Protonix] 40 mg PO DAILY 10/09/16 08/26/19 History Clopidogrel [Plavix] 75 mg PO DAILY 03/11/17 08/26/19 History Metoprolol Tartrate [Lopressor] 25 mg PO BID #0 tab 11/15/18 08/26/19 Rx Acetaminophen Tab [Tylenol] 650 mg PO Q6HR PRN tab 02/27/19 08/26/19 Rx Calcium Acetate [PhosLo] 667 mg PO TID-W/MEALS cap 02/27/19 08/26/19 Rx Potassium Chloride ER [K-Dur 10] 10 meq PO DAILY tab.er.prt 02/27/19 08/26/19 Rx Calcitriol [Rocaltrol] 0.25 mcg PO Q7D 07/27/19 08/26/19 History Collagenase [Santyl] 1 applic TOPICAL DAILY 07/27/19 08/26/19 History Epoetin Edgardo [Procrit] 4,000 unit SQ MOWEFR 07/27/19 08/26/19 History Torsemide [Demadex] 100 mg PO DAILY 07/27/19 08/26/19 History Pregabalin [Lyrica] 25 mg PO BID #60 cap 08/13/19 08/26/19 Rx Allergies Allergy/AdvReac Type Severity Reaction Status Date / Time gabapentin Allergy Rash/Hives Verified 08/26/19 22:55 morphine Allergy Rash/Hives Verified 08/26/19 22:55 escitalopram [From Lexapro] AdvReac Hallucinati Verified 08/26/19 23:25 ons lisinopril AdvReac Cough Verified 08/26/19 22:55 quetiapine [From Seroquel] AdvReac Hallucinati Verified 08/26/19 22:55 ons Surgical - Exam Vital Signs Temp Pulse Resp BP Pulse Ox 99.0 F 81 18 121/67 97 08/26/19 17:41 08/26/19 17:41 08/26/19 17:41 08/26/19 17:41 08/26/19 17:41 Results - Labs 09/01/19 08:42 09/01/19 08:42 Abnormal Lab Results - Last 24 Hours (Table) 08/31/19 08/31/19 09/01/19 Range/Units 17:22 20:06 02:22 WBC (3.8-10.6) k/uL MCHC (31.0-37.0) g/dL RDW (11.5-15.5) % Neutrophils # (1.3-7.7) k/uL Lymphocytes # (1.0-4.8) k/uL Sodium (137-145) mmol/L Chloride (98-107) mmol/L BUN (7-17) mg/dL Creatinine (0.52-1.04) mg/dL Glucose (74-99) mg/dL POC Glucose (mg/dL) 129 H 271 H 174 H (75-99) mg/dL Calcium (8.4-10.2) mg/dL 09/01/19 09/01/19 09/01/19 Range/Units 06:53 08:42 08:42 WBC 10.7 H (3.8-10.6) k/uL MCHC 29.7 L (31.0-37.0) g/dL RDW 17.7 H (11.5-15.5) % Neutrophils # 9.2 H (1.3-7.7) k/uL Lymphocytes # 0.7 L (1.0-4.8) k/uL Sodium 135 L (137-145) mmol/L Chloride 96 L (98-107) mmol/L BUN 40 H (7-17) mg/dL Creatinine 11.07 H* (0.52-1.04) mg/dL Glucose 205 H (74-99) mg/dL POC Glucose (mg/dL) 180 H (75-99) mg/dL Calcium 6.9 L (8.4-10.2) mg/dL Microbiology - Last 24 Hours (Table) 08/29/19 12:53 Gram Stain - Final Foot - Left Tissue Culture - Final Enterococcus faecalis VRE Enterococcus faecium VRE Coagulase Negative Staph Diphtheroid species Stenotrophomonas maltophilia 08/27/19 01:50 Blood Culture - Preliminary Blood No Growth after 120 hours 08/28/19 19:00 Gram Stain - Preliminary Peritoneal Fluid Body Fluid Culture - Preliminary Yeast species 08/27/19 01:19 Gram Stain - Preliminary Peritoneal Fluid Body Fluid Culture - Preliminary Yeast species 08/29/19 12:51 Anaerobic Culture - Preliminary Heel - Left Yeast species Diabetes panel 09/01/19 Range/Units 08:42 Sodium 135 L (137-145) mmol/L Potassium 3.6 (3.5-5.1) mmol/L Chloride 96 L (98-107) mmol/L Carbon Dioxide 28 (22-30) mmol/L BUN 40 H (7-17) mg/dL Creatinine 11.07 H* (0.52-1.04) mg/dL Glucose 205 H (74-99) mg/dL Calcium 6.9 L (8.4-10.2) mg/dL Calcium panel 09/01/19 Range/Units 08:42 Calcium 6.9 L (8.4-10.2) mg/dL Pituitary panel 09/01/19 Range/Units 08:42 Sodium 135 L (137-145) mmol/L Potassium 3.6 (3.5-5.1) mmol/L Chloride 96 L (98-107) mmol/L Carbon Dioxide 28 (22-30) mmol/L BUN 40 H (7-17) mg/dL Creatinine 11.07 H* (0.52-1.04) mg/dL Glucose 205 H (74-99) mg/dL Calcium 6.9 L (8.4-10.2) mg/dL Adrenal panel 09/01/19 Range/Units 08:42 Sodium 135 L (137-145) mmol/L Potassium 3.6 (3.5-5.1) mmol/L Chloride 96 L (98-107) mmol/L Carbon Dioxide 28 (22-30) mmol/L BUN 40 H (7-17) mg/dL Creatinine 11.07 H* (0.52-1.04) mg/dL Glucose 205 H (74-99) mg/dL Calcium 6.9 L (8.4-10.2) mg/dL <Piero Strickland - Last Filed: 09/01/19 12:20> History of Present Illness History of present illness: As above. Patient with recent diagnosis of fungal colonization of catheter/peritonitis. We'll plan removal either later today or early tomorrow morning. Risks of bleeding, infection, persistent pain and peritonitis, bowel injury reviewed. She understands and wishes to proceed. Surgical - Exam Vital Signs Temp Pulse Resp BP Pulse Ox 99.0 F 81 18 121/67 97 08/26/19 17:41 08/26/19 17:41 08/26/19 17:41 08/26/19 17:41 08/26/19 17:41 Results - Labs 09/01/19 08:42 09/01/19 08:42 Abnormal Lab Results - Last 24 Hours (Table) 08/31/19 08/31/19 09/01/19 Range/Units 17:22 20:06 02:22 WBC (3.8-10.6) k/uL MCHC (31.0-37.0) g/dL RDW (11.5-15.5) % Neutrophils # (1.3-7.7) k/uL Lymphocytes # (1.0-4.8) k/uL Sodium (137-145) mmol/L Chloride (98-107) mmol/L BUN (7-17) mg/dL Creatinine (0.52-1.04) mg/dL Glucose (74-99) mg/dL POC Glucose (mg/dL) 129 H 271 H 174 H (75-99) mg/dL Calcium (8.4-10.2) mg/dL 09/01/19 09/01/19 09/01/19 Range/Units 06:53 08:42 08:42 WBC 10.7 H (3.8-10.6) k/uL MCHC 29.7 L (31.0-37.0) g/dL RDW 17.7 H (11.5-15.5) % Neutrophils # 9.2 H (1.3-7.7) k/uL Lymphocytes # 0.7 L (1.0-4.8) k/uL Sodium 135 L (137-145) mmol/L Chloride 96 L (98-107) mmol/L BUN 40 H (7-17) mg/dL Creatinine 11.07 H* (0.52-1.04) mg/dL Glucose 205 H (74-99) mg/dL POC Glucose (mg/dL) 180 H (75-99) mg/dL Calcium 6.9 L (8.4-10.2) mg/dL 09/01/19 Range/Units 12:02 WBC (3.8-10.6) k/uL MCHC (31.0-37.0) g/dL RDW (11.5-15.5) % Neutrophils # (1.3-7.7) k/uL Lymphocytes # (1.0-4.8) k/uL Sodium (137-145) mmol/L Chloride (98-107) mmol/L BUN (7-17) mg/dL Creatinine (0.52-1.04) mg/dL Glucose (74-99) mg/dL POC Glucose (mg/dL) 134 H (75-99) mg/dL Calcium (8.4-10.2) mg/dL Microbiology - Last 24 Hours (Table) 08/29/19 12:53 Gram Stain - Final Foot - Left Tissue Culture - Final Enterococcus faecalis VRE Enterococcus faecium VRE Coagulase Negative Staph Diphtheroid species Stenotrophomonas maltophilia 08/27/19 01:50 Blood Culture - Preliminary Blood No Growth after 120 hours 08/28/19 19:00 Gram Stain - Preliminary Peritoneal Fluid Body Fluid Culture - Preliminary Yeast species 08/27/19 01:19 Gram Stain - Preliminary Peritoneal Fluid Body Fluid Culture - Preliminary Yeast species 08/29/19 12:51 Anaerobic Culture - Preliminary Heel - Left Yeast species Diabetes panel 09/01/19 Range/Units 08:42 Sodium 135 L (137-145) mmol/L Potassium 3.6 (3.5-5.1) mmol/L Chloride 96 L (98-107) mmol/L Carbon Dioxide 28 (22-30) mmol/L BUN 40 H (7-17) mg/dL Creatinine 11.07 H* (0.52-1.04) mg/dL Glucose 205 H (74-99) mg/dL Calcium 6.9 L (8.4-10.2) mg/dL Calcium panel 09/01/19 Range/Units 08:42 Calcium 6.9 L (8.4-10.2) mg/dL Pituitary panel 09/01/19 Range/Units 08:42 Sodium 135 L (137-145) mmol/L Potassium 3.6 (3.5-5.1) mmol/L Chloride 96 L (98-107) mmol/L Carbon Dioxide 28 (22-30) mmol/L BUN 40 H (7-17) mg/dL Creatinine 11.07 H* (0.52-1.04) mg/dL Glucose 205 H (74-99) mg/dL Calcium 6.9 L (8.4-10.2) mg/dL Adrenal panel 09/01/19 Range/Units 08:42 Sodium 135 L (137-145) mmol/L Potassium 3.6 (3.5-5.1) mmol/L Chloride 96 L (98-107) mmol/L Carbon Dioxide 28 (22-30) mmol/L BUN 40 H (7-17) mg/dL Creatinine 11.07 H* (0.52-1.04) mg/dL Glucose 205 H (74-99) mg/dL Calcium 6.9 L (8.4-10.2) mg/dL
[2019-09-01] MEDS: cefTAZidime 1.25 GM in DIALYSIS (PERITONL) DEX 2.5% 2,000 ML INTRAPERIT SCH (12:17)
--- NOTE | 2019-09-01 13:25 | P.GSCN ---
History of Present Illness History of present illness: 64-year-old -[place] female patient is known to me from the past. Patient has history of chronic renal failure on peritoneal dialysis patient came with abdominal pain and found to have a infection with yeast. I was consulted for placement of a dialysis catheter. Patient also has a wound on left heel for local wound care Medical history history of chronic renal failure diabetes mellitus chronic wound left lower extremity On examination patient was seen in her room neck supple trachea central Abdomen is is tender has a peritoneal dialysis Vascular examination brachial radial pulses are present femorals are 1+ on the left side patient has a amputation of the right leg left heel wound under my care Plan is placement of a dialysis catheter risk and complication bleeding infection thrombosis has been discussed we will keep the patient nothing by mouth for limited to the catheter today Past Medical History Past Medical History: Diabetes Mellitus, Dialysis, GERD/Reflux, Hyperlipidemia, Hypertension, Memory Impairment, Renal Disease, Thyroid Disorder Additional Past Medical History / Comment(s): peritoneal dialysis daily over night. hx steel syndrome left hand-please use rt arm/hand for iv, blood draws. diabetic neuropathy and diabetic retinopathy, Rt BKA uses prosthesis. 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 neck cervical 4,5,6 fused. graft tie off 04/05/2017, eye laser surgery for diabetic retinopathy Past Anesthesia/Blood Transfusion Reactions: No Reported Reaction Past Psychological History: Anxiety, Depression Smoking Status: Never smoker Past Alcohol Use History: None Reported Past Drug Use History: None Reported - Past Family History Mother Family Medical History: Diabetes Mellitus, Hypertension Additional Family Medical History / Comment(s): colon ca Father Family Medical History: Myocardial Infarction (MD) Medications and Allergies Home Medications Medication Instructions Recorded Confirmed Type Levothyroxine Sodium [Synthroid] 75 mcg PO DAILY 10/09/16 08/26/19 History Pantoprazole [Protonix] 40 mg PO DAILY 10/09/16 08/26/19 History Clopidogrel [Plavix] 75 mg PO DAILY 03/11/17 08/26/19 History Metoprolol Tartrate [Lopressor] 25 mg PO BID #0 tab 11/15/18 08/26/19 Rx Acetaminophen Tab [Tylenol] 650 mg PO Q6HR PRN tab 02/27/19 08/26/19 Rx Calcium Acetate [PhosLo] 667 mg PO TID-W/MEALS cap 02/27/19 08/26/19 Rx Potassium Chloride ER [K-Dur 10] 10 meq PO DAILY tab.er.prt 02/27/19 08/26/19 Rx Calcitriol [Rocaltrol] 0.25 mcg PO Q7D 07/27/19 08/26/19 History Collagenase [Santyl] 1 applic TOPICAL DAILY 07/27/19 08/26/19 History Epoetin Edgardo [Procrit] 4,000 unit SQ MOWEFR 07/27/19 08/26/19 History Torsemide [Demadex] 100 mg PO DAILY 07/27/19 08/26/19 History Pregabalin [Lyrica] 25 mg PO BID #60 cap 08/13/19 08/26/19 Rx Allergies Allergy/AdvReac Type Severity Reaction Status Date / Time gabapentin Allergy Rash/Hives Verified 08/26/19 22:55 morphine Allergy Rash/Hives Verified 08/26/19 22:55 escitalopram [From Lexapro] AdvReac Hallucinati Verified 08/26/19 23:25 ons lisinopril AdvReac Cough Verified 08/26/19 22:55 quetiapine [From Seroquel] AdvReac Hallucinati Verified 08/26/19 22:55 ons Surgical - Exam Vital Signs Temp Pulse Resp BP Pulse Ox 99.0 F 81 18 121/67 97 08/26/19 17:41 08/26/19 17:41 08/26/19 17:41 08/26/19 17:41 08/26/19 17:41 Results - Labs 09/01/19 08:42 09/01/19 08:42 Abnormal Lab Results - Last 24 Hours (Table) 08/31/19 08/31/19 09/01/19 Range/Units 17:22 20:06 02:22 WBC (3.8-10.6) k/uL MCHC (31.0-37.0) g/dL RDW (11.5-15.5) % Neutrophils # (1.3-7.7) k/uL Lymphocytes # (1.0-4.8) k/uL Sodium (137-145) mmol/L Chloride (98-107) mmol/L BUN (7-17) mg/dL Creatinine (0.52-1.04) mg/dL Glucose (74-99) mg/dL POC Glucose (mg/dL) 129 H 271 H 174 H (75-99) mg/dL Calcium (8.4-10.2) mg/dL 09/01/19 09/01/19 09/01/19 Range/Units 06:53 08:42 08:42 WBC 10.7 H (3.8-10.6) k/uL MCHC 29.7 L (31.0-37.0) g/dL RDW 17.7 H (11.5-15.5) % Neutrophils # 9.2 H (1.3-7.7) k/uL Lymphocytes # 0.7 L (1.0-4.8) k/uL Sodium 135 L (137-145) mmol/L Chloride 96 L (98-107) mmol/L BUN 40 H (7-17) mg/dL Creatinine 11.07 H* (0.52-1.04) mg/dL Glucose 205 H (74-99) mg/dL POC Glucose (mg/dL) 180 H (75-99) mg/dL Calcium 6.9 L (8.4-10.2) mg/dL 09/01/19 Range/Units 12:02 WBC (3.8-10.6) k/uL MCHC (31.0-37.0) g/dL RDW (11.5-15.5) % Neutrophils # (1.3-7.7) k/uL Lymphocytes # (1.0-4.8) k/uL Sodium (137-145) mmol/L Chloride (98-107) mmol/L BUN (7-17) mg/dL Creatinine (0.52-1.04) mg/dL Glucose (74-99) mg/dL POC Glucose (mg/dL) 134 H (75-99) mg/dL Calcium (8.4-10.2) mg/dL Microbiology - Last 24 Hours (Table) 08/29/19 12:53 Gram Stain - Final Foot - Left Tissue Culture - Final Enterococcus faecalis VRE Enterococcus faecium VRE Coagulase Negative Staph Diphtheroid species Stenotrophomonas maltophilia 08/27/19 01:50 Blood Culture - Preliminary Blood No Growth after 120 hours 08/28/19 19:00 Gram Stain - Preliminary Peritoneal Fluid Body Fluid Culture - Preliminary Yeast species 08/27/19 01:19 Gram Stain - Preliminary Peritoneal Fluid Body Fluid Culture - Preliminary Yeast species 08/29/19 12:51 Anaerobic Culture - Preliminary Heel - Left Yeast species Diabetes panel 09/01/19 Range/Units 08:42 Sodium 135 L (137-145) mmol/L Potassium 3.6 (3.5-5.1) mmol/L Chloride 96 L (98-107) mmol/L Carbon Dioxide 28 (22-30) mmol/L BUN 40 H (7-17) mg/dL Creatinine 11.07 H* (0.52-1.04) mg/dL Glucose 205 H (74-99) mg/dL Calcium 6.9 L (8.4-10.2) mg/dL Calcium panel 09/01/19 Range/Units 08:42 Calcium 6.9 L (8.4-10.2) mg/dL Pituitary panel 09/01/19 Range/Units 08:42 Sodium 135 L (137-145) mmol/L Potassium 3.6 (3.5-5.1) mmol/L Chloride 96 L (98-107) mmol/L Carbon Dioxide 28 (22-30) mmol/L BUN 40 H (7-17) mg/dL Creatinine 11.07 H* (0.52-1.04) mg/dL Glucose 205 H (74-99) mg/dL Calcium 6.9 L (8.4-10.2) mg/dL Adrenal panel 09/01/19 Range/Units 08:42 Sodium 135 L (137-145) mmol/L Potassium 3.6 (3.5-5.1) mmol/L Chloride 96 L (98-107) mmol/L Carbon Dioxide 28 (22-30) mmol/L BUN 40 H (7-17) mg/dL Creatinine 11.07 H* (0.52-1.04) mg/dL Glucose 205 H (74-99) mg/dL Calcium 6.9 L (8.4-10.2) mg/dL
--- NOTE | 2019-09-01 15:02 | P.PN ---
Subjective Progress Note Date: 09/01/19 (delayed charting seen at 0845) Principal diagnosis: abdominal pain Patient is 64-year-old -[place] female with diabetes mellitus type 2 requiring insulin pump, end-stage renal disease on peritoneal dialysis, hypertension, dyslipidemia, GERD, and memory impairment who presented to the emergency department with complaints of 5 days of abdominal pain. Of note patient has been hospitalized multiple times over the last month secondary to abdominal pain initially she was found to have peritonitis and was treated with intraperitoneal antibiotics. At her next admission she had altered mentation which was felt to be secondary to pain medications in conjunction with her peritoneal dialysis. She was unable to be placed at longterm facility secondary to needing peritoneal dialysis. She then reported to our facility on 08/25 with again 5 days of abdominal pain. In the ER she was found to have vital signs within normal limits. Laboratory analysis was consistent with her known end-stage renal disease, urinalysis showed elevated white blood cell count however patient does not routinely urinate. Covid testing was negative. CT abdomen and pelvis showed no acute process. She was admitted for possible peritonitis was started on empiric vancomycin Rocephin. Her peritoneal fluid came back negative for infection. She was seen by nephrology who recommending continuing peritoneal dialysis. Urine came back with possible group D enterococcus urinary tract infection. Patient's Rocephin was switched to ampicillin and infectious disease was consulted. Infectious disease discontinued antibiotics as they Clinically doubted symptomatic urinary tract infection. She continued to have nausea and vomiting through 08/27. She was feeling better on 08/28 but continued to have abdominal pain, nephrology was concerned about peritonitis as the WBC count was increased and she was started on intraperitoneal fortaz again. She had a right upper quadrant ultrasound which did not show any signs of biliary disease. She continued to complain of abdominal pain especially on instil and drainage. Her peritoneal culture came back with yeast. Dr. Archer was contacted. On 08/31 Dr. Archer contacted about. Peritoneal culture with yeast. She was instructed no further peritoneal dialysis. Peritoneal catheter will need to be removed. Patient will need hemodialysis catheter placed and to proceed with hemodialysis. Patient notified of plan and is in agreement. Her peritoneal dialysis catheter was placed by Dr. Strickland and she asked for him to be the one to remove it. Patient seen and examined at bedside. Denies any chest pain, shortness breath, nausea, vomiting, or constipation. Increased abdominal pain significantly painful when trying to instill, she refuses at midnight and 6 AM secondary to the increased pain. We discussed the events as noted above. Objective - Vital Signs Vital signs: Vital Signs Temp 99.1 F 09/01/19 12:29 Pulse 75 09/01/19 12:29 Resp 17 09/01/19 12:29 BP 90/59 09/01/19 12:29 Pulse Ox 94 L 09/01/19 12:29 Intake & Output 08/31/19 09/01/19 09/01/19 18:59 06:59 18:59 Intake Total 600 320 Balance 600 320 Weight 107.5 kg Intake: Oral 600 320 Other: Voiding Method Bedside Commode Bedside Commode Bedside Commode Incontinent Incontinent Incontinent - Exam General: Ill appearing, mild distress secondary to pain appears at stated age Derm: warm, dry Head: atraumatic, normocephalic, symmetric Eyes: EOMI, no lid lag, anicteric sclera Mouth: no lip lesion, mucus membranes moist Cardiovascular: S1S2 reg, no murmur, positive posterior L, R BKA, Lungs: Decreased bs bilateral, no rhonchi, no rales , no accessory muscle use Abdominal: soft, + tender to palpation diffusely, no guarding, no appreciable organomegaly Ext: no gross muscle atrophy, no edema, no contractures Neuro: CN II-XI grossly intact, no focal neuro deficits Psych: Alert, oriented, appropriate affect - Labs CBC & Chem 7: 09/01/19 08:42 09/01/19 08:42 Labs: Abnormal Lab Results - Last 24 Hours (Table) 08/31/19 08/31/19 09/01/19 Range/Units 17:22 20:06 02:22 WBC (3.8-10.6) k/uL MCHC (31.0-37.0) g/dL RDW (11.5-15.5) % Neutrophils # (1.3-7.7) k/uL Lymphocytes # (1.0-4.8) k/uL Sodium (137-145) mmol/L Chloride (98-107) mmol/L BUN (7-17) mg/dL Creatinine (0.52-1.04) mg/dL Glucose (74-99) mg/dL POC Glucose (mg/dL) 129 H 271 H 174 H (75-99) mg/dL Calcium (8.4-10.2) mg/dL 09/01/19 09/01/19 09/01/19 Range/Units 06:53 08:42 08:42 WBC 10.7 H (3.8-10.6) k/uL MCHC 29.7 L (31.0-37.0) g/dL RDW 17.7 H (11.5-15.5) % Neutrophils # 9.2 H (1.3-7.7) k/uL Lymphocytes # 0.7 L (1.0-4.8) k/uL Sodium 135 L (137-145) mmol/L Chloride 96 L (98-107) mmol/L BUN 40 H (7-17) mg/dL Creatinine 11.07 H* (0.52-1.04) mg/dL Glucose 205 H (74-99) mg/dL POC Glucose (mg/dL) 180 H (75-99) mg/dL Calcium 6.9 L (8.4-10.2) mg/dL 09/01/19 Range/Units 12:02 WBC (3.8-10.6) k/uL MCHC (31.0-37.0) g/dL RDW (11.5-15.5) % Neutrophils # (1.3-7.7) k/uL Lymphocytes # (1.0-4.8) k/uL Sodium (137-145) mmol/L Chloride (98-107) mmol/L BUN (7-17) mg/dL Creatinine (0.52-1.04) mg/dL Glucose (74-99) mg/dL POC Glucose (mg/dL) 134 H (75-99) mg/dL Calcium (8.4-10.2) mg/dL Microbiology - Last 24 Hours (Table) 08/29/19 12:53 Gram Stain - Final Foot - Left Tissue Culture - Final Enterococcus faecalis VRE Enterococcus faecium VRE Coagulase Negative Staph Diphtheroid species Stenotrophomonas maltophilia 08/27/19 01:50 Blood Culture - Preliminary Blood No Growth after 120 hours 08/28/19 19:00 Gram Stain - Preliminary Peritoneal Fluid Body Fluid Culture - Preliminary Yeast species 08/27/19 01:19 Gram Stain - Preliminary Peritoneal Fluid Body Fluid Culture - Preliminary Yeast species 08/29/19 12:51 Anaerobic Culture - Preliminary Heel - Left Yeast species Assessment and Plan Assessment: Fungal peritonitis resulting in intractable abdominal pain - Surgery consulted for removal of peritoneal cath - D/W Dr. Archer no additional PD - ID recs appreciated - Diflucan - gallbladder US negative End-stage renal disease on peritoneal hemodialysis - Nephro recs - Vascular surgery consulted for cath placement - plan is for HD on 09/01 - patient has hx of hypotnesion on HD, will monitor closely - phoslo Diabetes mellitus type 2, insulin-dependent chronically on pump -Pump on hold -A1c 7.5 -Sliding-scale insulin, Levemir decreased as will be NPO after midnight , Novolog fixed dose Generalized weakness -PT/OT -PMR recs apprecaited Anemia of chronic kidney disease -Hemoglobin currently at goal -Follow CBC -Outpatient follow-up Stage IV left heel ulcer -Santyl -ID recs -Debrided on 08/[address] Jaramillo Constipation - lactulose as needed, has started having bowel movement - Avoid narcotics, trial of Flexeril for pain Hypomagnesemia, resolved Possible group D urinary tract infection, ruled out DVT prophylaxis: Heparin Discussed with: Patient, nursing Anticipated discharge: 1-2days Anticipated discharge place: home with HH VS IPR A total of 35 minutes was spent on the care of this complex patient more than 50% of the time was spent in counseling and care coordination.
[2019-09-01] MEDS ORDERED: FLUCONAZOLE 100 MG TAB PO ONE (15:30)
--- NOTE | 2019-09-01 16:38 | PN ---
PROGRESS NOTE dialysis: however, patient states she has been having significant abdominal pain which has worsened over the weekend. Her fluid culture did come back as yeast as well as enterococcus and VRE. The patient could not continue with peritoneal dialysis secondary to severe pain. On examination today, blood pressure was 115/54, heart rate 67 per minute, she is afebrile. Examination shows abdomen soft, distended. There is tenderness noted. Examination of the lower extremities shows no significant edema. The patient has left BKA. VARNISH REMOVER exam grossly intact. LABS: Show potassium 3.6, serum creatinine 11.0, hemoglobin of 11.5 g/dL. ASSESSMENT: 1. End-stage renal disease, maintained on peritoneal dialysis. 2. CAPD peritonitis with fluid culture growing yeast and VRE. The dialysis catheter will be removed. I will discuss with Dr. Strickland if he can remove the catheter today. Patient will have hemodialysis catheter placed in a.m. and will plan for hemodialysis tomorrow. Antibiotics as per ID. Plan to discontinue PD catheter today if possible. PLAN: For hemodialysis in a.m. Pain control. MMODL / IJN: [id number] /
[2019-09-01] MEDS ORDERED: IV FLUID CONTINUATION 1,000 ML IV ONE ×2 (16:40→17:34)
[2019-09-01] MEDS: LIDOCAINE 1% INJ 10MG/ML (20 ML MDV) SQ ONE ×2 (16:47→17:00)
[2019-09-01] MEDS: MIDAZOLAM 2 MG/2 ML VIAL IV ONE ×2 (16:47→16:57)
[2019-09-01] MEDS: fentaNYL (PF) 50 MCG/ML 2 ML AMP IV ONE ×2 (17:07→17:18)
[2019-09-01] MEDS ORDERED: IOPAMIDOL-250 50ML BTL IV ONE (17:18)
--- NOTE | 2019-09-01 17:44 | IR ---
Fluoroscopy History: Renal failure 180 seconds of fluoroscopic time and 481 films are submitted for Central venous line placement.
[2019-09-01] MEDS ORDERED: HEPARIN SODIUM,PORCINE 5,000 UNIT/ML 1 ML VIAL SQ ONE (18:00)
[2019-09-01] MEDS ORDERED: ePHEDrine SULFATE/0.9% NACL/PF 50 MG/5 ML SYRINGE IV ONE (18:01)
[2019-09-01] MEDS ORDERED: fentaNYL (PF) 50 MCG/ML 2 ML AMP ONE (18:01)
[2019-09-01] MEDS ORDERED: PHENYLEPHRINE-0.9% NACL SYG 1 MG/10 ML SYRINGE ONE (18:01)
[2019-09-01] MEDS ORDERED: MIDAZOLAM 2 MG/2 ML VIAL ONE (18:01)
[2019-09-01] MEDS ORDERED: LIDOCAINE 1% INJ 10MG/ML (20 ML MDV) ONE (18:01)
[2019-09-01] MEDS ORDERED: PROPOFOL 10 MG/ML 20 ML VIAL IV ONE (18:01)
[2019-09-01 18:04] LABS: Glucose,Whole Blood 133 mg/dL (75-99)
[2019-09-01] MEDS ORDERED: BUPIVACAIN-EPI 0.25%-1:200,000 30 ML VIAL SQ ONE ×3 (18:17→18:23)
--- NOTE | 2019-09-01 18:22 | XR ---
EXAMINATION TYPE: XR chest 1V portable DATE OF EXAM: 09/01/2019 HISTORY: Hemodialysis catheter placement COMPARISON: 08/02/2019 TECHNIQUE: Single view of the chest is submitted. FINDINGS: Demonstrated are scattered senescent parenchymal change. Hemodialysis catheter noted with its distal tip overlying the SVC. No evidence for pneumothorax. There is no evidence for focal infiltrate. The heart is stable. Hilar and mediastinal structures are within normal limits. Degenerative changes are seen of the dorsal spine. IMPRESSION: 1. Chronic changes without evidence for acute pulmonary disease.
[2019-09-01] MEDS ORDERED: ANIDULAFUNGIN 200 MG in SODIUM CHLORIDE 0.9% 200 ML IVPB ONE (18:30)
--- NOTE | 2019-09-01 18:55 | P.OP ---
Date of Procedure: 09/01/19 Procedure(s) Performed: PREOPERATIVE DIAGNOSIS: Catheter related fungal infection POSTOPERATIVE DIAGNOSIS: Same PROCEDURE: PD cath removal SURGEON: Em EBL: 2 mL ANESTHESIA: Sedation and local COMPLICATIONS: None OPERATIVE PROCEDURE: Patient was placed in the supine position. The abdomen was prepped and draped in usual sterile fashion. The previous paramedian incision was re-incised after localizing the skin. The subcutaneous tissues were divided using electrocautery. Blunt dissection around the cuff that was present at the fascia and peritoneum took place. The cuff was fully mobilized. The catheter was removed from the peritoneal cavity. The outer cuff was dissected from the subcutaneous fascia using electrocautery. The catheter was cut on the other side of that cuff and the catheter was removed. The fascial defect was closed using a single [id number] 0 Vicryl stitch. The subcutaneous tissues were closed using 3-0 Vicryl sutures and the skin using 4-0 Monocryl sutures. Steri- Strips and sterile dressings were applied. DISPOSITION: Stable to recovery room
--- NOTE | 2019-09-01 19:26 | PN ---
PROGRESS NOTE DATE OF SERVICE: 09/01/2019 REASON FOR FOLLOWUP: 1. Left heel wound. 2. Peritonitis. INTERVAL HISTORY: The patient is currently afebrile. The patient continues to complain of abdominal pain; no worsening or improvement. No chest pain, shortness of breath or cough. No pain to the left heel area. PHYSICAL EXAMINATION: Blood pressure is 115/54 with a pulse of 75, temperature 99.1. She is 94% on room air. General description is an elderly female lying in bed in no distress. RESPIRATORY SYSTEM: Unlabored breathing. Clear to auscultation anteriorly. HEART: S1, S2. Regular rate and rhythm. ABDOMEN: Soft. Mildly tender. LABS: Hemoglobin 11.5, white count 10.7, BUN of 40, creatinine 11.07. Left heel with multiple pathogens. Peritoneal fluid now showing yeast. DIAGNOSTIC IMPRESSION AND PLAN: 1. Patient with abdominal pain, likely from peritonitis with culture showing yeast. We will add Eraxis. The patient will need removal of the peritoneal dialysis catheter and start on the hemodialysis. Monitor clinical course closely. 2. Patient with a left heel wound with multiple pathogens growing, more likely colonization. No need for any specific therapy for the same. Local care to continue with Santyl followed by moist dressing. MMODL / IJN: [id number] /
[2019-09-01 19:42] LABS: Glucose,Whole Blood 144 mg/dL (75-99)
[2019-09-01 19:50] LABS: Hepatitis B Surface Antibody Reactive (Non-Reactive); Hepatitis B Surface Antigen Non-Reactive (Non-Reactive)
[2019-09-01] MEDS ORDERED: SODIUM CHLORIDE 0.9% 500 ML 500 ML IV ONE (20:49)
[2019-09-01] MEDS ORDERED: INSULIN DETEMIR (LEVEMIR) 100 UNIT/ML SYR SQ SCH (21:00)
[2019-09-01 21:21] LABS: Glucose,Whole Blood 191 mg/dL (75-99)
--- NOTE | 2019-09-01 21:43 | OP ---
OPERATIVE REPORT PREOPERATIVE DIAGNOSIS: 1. Acute on chronic renal failure with infected peritoneal dialysis catheter. PROCEDURE: 1. Superior vena cavogram. 2. Ultrasound-guided 23 cm dialysis catheter placement, right jugular approach. 3. Sedation time 35 minutes. DESCRIPTION OF PROCEDURE: This patient has a history of chronic renal failure and peritoneal dialysis. Patient had a dialysis catheter placed x2 in the past. The patient was brought [place] the [facility]. Right side of the neck and chest was prepped and draped in a sterile manner. Ultrasound-guided micropuncture was introduced into the right jugular vein. Jugular vein was dilated and a 4-Moroccan dilator was advanced on top of the guidewire. Then with hand injection we did the superior venacavogram. Superior vena was found to be patent, and after that a tunnel was created. Through the tunnel we brought a 23 cm dialysis catheter. After that we passed a 10-Moroccan dilator which was upgraded to 12- Moroccan dilator catheter, and the sheath and dilator were advanced on top of the guidewire. Through the sheath we introduced the dialysis catheter. Tip of the catheter was in superior vena cava flushed with heparin saline and Hep-locked, secured with 3-0 nylon. Skin was closed on the neck with 3-0 Vicryl. Flushed with heparin saline and Hep-locked. The patient tolerated the procedure well. MMODL / IJN: [id number] /
[2019-09-02 02:31] LABS: Glucose,Whole Blood 258 mg/dL (75-99)
[2019-09-02] MEDS: LEVOTHYROXINE 75 MCG TAB PO SCH (05:01)
[2019-09-02] MEDS: ACETAMINOPHEN TAB 325 MG TAB PO PRN (05:01)
[2019-09-02] MEDS: DIALYSIS (PERIT 2.5%) 2,000 ML 50 G/2,000 ML BAG INTRAPERIT SCH (05:49)
[2019-09-02 06:18] LABS: Anisocytosis Slight; HGB 10.8 gm/dL (11.4-16.0); Hypochromasia Moderate; MCH 28.7 pg (25.0-35.0); MCHC 29.9 g/dL (31.0-37.0); MCV 95.9 fL (80.0-100.0); Macrocytosis Slight; Mean Platelet Volume 10.7; Platelet Count 319 k/uL (150-450); RBC 3.75 m/uL (3.80-5.40); RDW 18.3 % (11.5-15.5); WBC 21.3 k/uL (3.8-10.6)
[2019-09-02 06:50] LABS: Calcium 7.1 mg/dL (8.4-10.2); Magnesium 1.8 mg/dL (1.6-2.3); Potassium 4.8 mmol/L (3.5-5.1)
[2019-09-02 07:03] LABS: Glucose,Whole Blood 266 mg/dL (75-99)
[2019-09-02] MEDS: INSULIN ASPART (NovoLOG) 100 UNIT/ML VIAL SQ SCH ×7 (08:58→20:53)
[2019-09-02] MEDS: ONDANSETRON 4 MG/2 ML VIAL IVP PRN (08:59)
[2019-09-02] MEDS ORDERED: FLUCONAZOLE 100 MG TAB PO SCH (09:00)
[2019-09-02] MEDS ORDERED: HEPARIN SODIUM,PORCINE 5,000 UNIT/ML 1 ML VIAL ONE (09:00)
--- NOTE | 2019-09-02 09:48 | P.PN ---
<Radha Sutton A - Last Filed: 09/02/19 09:41> Subjective Progress Note Date: 09/02/19 CHIEF COMPLAINT: PD catheter removal HISTORY OF PRESENT ILLNESS: Patient examined this morning at the bedside. She is s/p removal of PD catheter by Dr. Strickland and also placement of HD catheter per Dr. Jaramillo. POD #1. Patient is currently receiving hemodialysis at the time of my examination. She is less tearful today. She reports improvement in abdominal pain. She reports nausea. Denies vomiting. She has been coughing with occasional phlegm production. PHYSICAL EXAM: VITAL SIGNS: Reviewed. GENERAL: Well-developed in no acute distress. HEENT: No sclera icterus. Extraocular movements grossly intact. Moist buccal mucosa. Head is atraumatic, normocephalic. ABDOMEN: Soft. Nondistended. Dressing to right lower quadrant clean dry intact. NEUROLOGIC: Alert and oriented. Cranial nerves II through XII grossly intact. ASSESSMENT: 1. Abdominal pain with possible peritonitis, peritoneal fluid positive for yeast 2. End-stage renal disease on peritoneal dialysis PLAN: If patients nausea improves, may begin renal diet HD per nephrology Continue Diflucan Nurse practitioner note has been reviewed by physician. Signing provider agrees with the documented findings, assessment, and plan of care. Objective - Vital Signs Vital signs: Vital Signs Temp 98.7 F 09/02/19 09:17 Pulse 94 09/02/19 05:00 Resp 20 09/02/19 05:00 BP 112/65 09/02/19 05:00 Pulse Ox 91 L 09/02/19 05:00 Intake & Output 09/01/19 09/02/19 09/02/19 18:59 06:59 18:59 Intake Total 1150 940 Output Total 3 Balance 1147 940 Weight 107.5 kg Intake: IV 550 350 Oral 600 590 Output: Estimated Blood Loss 3 Other: Voiding Method Bedside Commode Bedside Commode Incontinent Incontinent # Voids 0 - Labs CBC & Chem 7: 09/02/19 05:41 09/02/19 05:41 Labs: Abnormal Lab Results - Last 24 Hours (Table) 09/01/19 09/01/19 09/01/19 Range/Units 08:42 12:02 17:43 WBC (3.8-10.6) k/uL RBC (3.80-5.40) m/uL Hgb (11.4-16.0) gm/dL MCHC (31.0-37.0) g/dL RDW (11.5-15.5) % Sodium (137-145) mmol/L Chloride (98-107) mmol/L BUN (7-17) mg/dL Creatinine (0.52-1.04) mg/dL Glucose (74-99) mg/dL POC Glucose (mg/dL) 134 H 133 H (75-99) mg/dL Calcium (8.4-10.2) mg/dL Hep Bs Antibody Reactive H (Non-Reactive) 09/01/19 09/01/19 09/02/19 Range/Units 19:39 21:07 02:28 WBC (3.8-10.6) k/uL RBC (3.80-5.40) m/uL Hgb (11.4-16.0) gm/dL MCHC (31.0-37.0) g/dL RDW (11.5-15.5) % Sodium (137-145) mmol/L Chloride (98-107) mmol/L BUN (7-17) mg/dL Creatinine (0.52-1.04) mg/dL Glucose (74-99) mg/dL POC Glucose (mg/dL) 144 H 191 H 258 H (75-99) mg/dL Calcium (8.4-10.2) mg/dL Hep Bs Antibody (Non-Reactive) 09/02/19 09/02/19 09/02/19 Range/Units 05:41 05:41 06:59 WBC 21.3 H (3.8-10.6) k/uL RBC 3.75 L (3.80-5.40) m/uL Hgb 10.8 L (11.4-16.0) gm/dL MCHC 29.9 L (31.0-37.0) g/dL RDW 18.3 H (11.5-15.5) % Sodium 135 L (137-145) mmol/L Chloride 97 L (98-107) mmol/L BUN 46 H (7-17) mg/dL Creatinine 12.55 H* (0.52-1.04) mg/dL Glucose 236 H (74-99) mg/dL POC Glucose (mg/dL) 266 H (75-99) mg/dL Calcium 7.1 L (8.4-10.2) mg/dL Hep Bs Antibody (Non-Reactive) Microbiology - Last 24 Hours (Table) 08/27/19 01:50 Blood Culture - Final Blood No Growth after 144 hours 08/28/19 19:00 Gram Stain - Final Peritoneal Fluid Body Fluid Culture - Final Isabela glabrata 08/27/19 01:19 Gram Stain - Final Peritoneal Fluid Body Fluid Culture - Final Isabela glabrata 08/29/19 12:51 Anaerobic Culture - Preliminary Heel - Left Isabela glabrata 08/29/19 12:53 Gram Stain - Final Foot - Left Tissue Culture - Final Enterococcus faecalis VRE Enterococcus faecium VRE Coagulase Negative Staph Diphtheroid species Stenotrophomonas maltophilia <Piero Strickland - Last Filed: 09/02/19 11:13> Subjective As above. Patient's abdominal pain improved. Continue antifungal. Hemodialysis today. Will follow. Objective - Vital Signs Vital signs: Vital Signs Temp 98.7 F 09/02/19 09:17 Pulse 94 09/02/19 05:00 Resp 20 09/02/19 05:00 BP 112/65 09/02/19 05:00 Pulse Ox 91 L 09/02/19 05:00 Intake & Output 09/01/19 09/02/19 09/02/19 18:59 06:59 18:59 Intake Total 1150 940 Output Total 3 Balance 1147 940 Weight 107.5 kg Intake: IV 550 350 Oral 600 590 Output: Estimated Blood Loss 3 Other: Voiding Method Bedside Commode Bedside Commode Incontinent Incontinent # Voids 0 - Labs CBC & Chem 7: 09/02/19 05:41 09/02/19 05:41 Labs: Abnormal Lab Results - Last 24 Hours (Table) 09/01/19 09/01/19 09/01/19 Range/Units 08:42 12:02 17:43 WBC (3.8-10.6) k/uL RBC (3.80-5.40) m/uL Hgb (11.4-16.0) gm/dL MCHC (31.0-37.0) g/dL RDW (11.5-15.5) % Sodium (137-145) mmol/L Chloride (98-107) mmol/L BUN (7-17) mg/dL Creatinine (0.52-1.04) mg/dL Glucose (74-99) mg/dL POC Glucose (mg/dL) 134 H 133 H (75-99) mg/dL Calcium (8.4-10.2) mg/dL Hep Bs Antibody Reactive H (Non-Reactive) 09/01/19 09/01/19 09/02/19 Range/Units 19:39 21:07 02:28 WBC (3.8-10.6) k/uL RBC (3.80-5.40) m/uL Hgb (11.4-16.0) gm/dL MCHC (31.0-37.0) g/dL RDW (11.5-15.5) % Sodium (137-145) mmol/L Chloride (98-107) mmol/L BUN (7-17) mg/dL Creatinine (0.52-1.04) mg/dL Glucose (74-99) mg/dL POC Glucose (mg/dL) 144 H 191 H 258 H (75-99) mg/dL Calcium (8.4-10.2) mg/dL Hep Bs Antibody (Non-Reactive) 09/02/19 09/02/19 09/02/19 Range/Units 05:41 05:41 06:59 WBC 21.3 H (3.8-10.6) k/uL RBC 3.75 L (3.80-5.40) m/uL Hgb 10.8 L (11.4-16.0) gm/dL MCHC 29.9 L (31.0-37.0) g/dL RDW 18.3 H (11.5-15.5) % Sodium 135 L (137-145) mmol/L Chloride 97 L (98-107) mmol/L BUN 46 H (7-17) mg/dL Creatinine 12.55 H* (0.52-1.04) mg/dL Glucose 236 H (74-99) mg/dL POC Glucose (mg/dL) 266 H (75-99) mg/dL Calcium 7.1 L (8.4-10.2) mg/dL Hep Bs Antibody (Non-Reactive) 09/02/19 Range/Units 11:09 WBC (3.8-10.6) k/uL RBC (3.80-5.40) m/uL Hgb (11.4-16.0) gm/dL MCHC (31.0-37.0) g/dL RDW (11.5-15.5) % Sodium (137-145) mmol/L Chloride (98-107) mmol/L BUN (7-17) mg/dL Creatinine (0.52-1.04) mg/dL Glucose (74-99) mg/dL POC Glucose (mg/dL) 116 H (75-99) mg/dL Calcium (8.4-10.2) mg/dL Hep Bs Antibody (Non-Reactive) Microbiology - Last 24 Hours (Table) 08/29/19 12:51 Anaerobic Culture - Final Heel - Left Isabela glabrata 08/27/19 01:50 Blood Culture - Final Blood No Growth after 144 hours 08/28/19 19:00 Gram Stain - Final Peritoneal Fluid Body Fluid Culture - Final Isabela glabrata 08/27/19 01:19 Gram Stain - Final Peritoneal Fluid Body Fluid Culture - Final Isabela glabrata 08/29/19 12:53 Gram Stain - Final Foot - Left Tissue Culture - Final Enterococcus faecalis VRE Enterococcus faecium VRE Coagulase Negative Staph Diphtheroid species Stenotrophomonas maltophilia
[2019-09-02] MEDS: MIDODRINE 5 MG TAB PO PRN (10:10)
[2019-09-02 11:09] LABS: Glucose,Whole Blood 116 mg/dL (75-99)
[2019-09-02] MEDS: METOPROLOL TARTRATE 25 MG TAB PO SCH ×2 (12:59→21:01)
[2019-09-02] MEDS: CLOPIDOGREL 75 MG TAB PO SCH (12:59)
[2019-09-02] MEDS: HEPARIN SODIUM,PORCINE 5,000 UNIT/ML 1 ML VIAL SQ SCH ×3 (13:00→23:44)
[2019-09-02] MEDS: PANTOPRAZOLE 40 MG TABLET PO SCH (13:00)
[2019-09-02] MEDS: PREGABALIN 25 MG CAP PO SCH ×2 (13:00→21:01)
[2019-09-02] MEDS: CALCIUM ACETATE 667 MG TAB PO SCH ×3 (13:00→17:38)
[2019-09-02] MEDS: cefTAZidime 1.25 GM in DIALYSIS (PERITONL) DEX 2.5% 2,000 ML INTRAPERIT SCH (13:18)
[2019-09-02] MEDS: COLLAGENASE 250 UNIT/GM OINTMENT 30 GM TUBE TOPICAL SCH (14:57)
[2019-09-02 15:27] LABS: Glucose,Whole Blood 95 mg/dL (75-99)
--- NOTE | 2019-09-02 15:53 | PN ---
PROGRESS NOTE Patient is seen for followup for end-stage renal disease. She did have a PD catheter removed yesterday for ongoing peritonitis with cultures growing Isabela glabrata and VRE. Patient states her abdominal pain has much improved, although she continues to feel weak. She is currently seen on dialysis tolerating her treatment well. She did have a low-grade temp of 100.0 today, blood pressure was 128/56, heart rate 85 per minute. Examination shows trace edema in lower extremities. Left BKA. Abdomen is soft. Mild tenderness noted, much better than yesterday. [employer] exam grossly intact. LABS: Show sodium 135, potassium 4.8, BUN 46, creatinine 12.5, hemoglobin 10.8. ASSESSMENT: 1. End-stage renal disease, currently switched to hemodialysis secondary to ongoing PD peritonitis with fluid cultures growing Isabela and VRE. 2. CAPD peritonitis, status post removal of PD catheter, being followed by ID, fluid culture grew Isabela glabrata as well as VRE, maintained on antibiotics per ID as well as Diflucan which was switched to . 3. CKD mineral bone disorder. 4. Mild volume overload. PLAN: Hemodialysis today, repeat in a.m. Discontinue antibiotics via PD and patient will need outpatient chair time for hemodialysis. MMODL / IJN: [id number] /
--- NOTE | 2019-09-02 15:55 | P.PN ---
Subjective Progress Note Date: 09/02/19 (delayed charting seen at 0910) Principal diagnosis: abdominal pain Patient is 64-year-old -[place] female with diabetes mellitus type 2 requiring insulin pump, end-stage renal disease on peritoneal dialysis, hypertension, dyslipidemia, GERD, and memory impairment who presented to the emergency department with complaints of 5 days of abdominal pain. Of note patient has been hospitalized multiple times over the last month secondary to abdominal pain initially she was found to have peritonitis and was treated with intraperitoneal antibiotics. At her next admission she had altered mentation which was felt to be secondary to pain medications in conjunction with her peritoneal dialysis. She was unable to be placed at nursing home facility secondary to needing peritoneal dialysis. She then reported to our facility on 08/25 with again 5 days of abdominal pain. In the ER she was found to have vital signs within normal limits. Laboratory analysis was consistent with her known end-stage renal disease, urinalysis showed elevated white blood cell count however patient does not routinely urinate. Covid testing was negative. CT abdomen and pelvis showed no acute process. She was admitted for possible peritonitis was started on empiric vancomycin Rocephin. Her peritoneal fluid came back negative for infection. She was seen by nephrology who recommending continuing peritoneal dialysis. Urine came back with possible group D enterococcus urinary tract infection. Patient's Rocephin was switched to ampicillin and infectious disease was consulted. Infectious disease discontinued antibiotics as they Clinically doubted symptomatic urinary tract infection. She continued to have nausea and vomiting through 08/27. She was feeling better on 08/28 but continued to have abdominal pain, nephrology was concerned about peritonitis as the WBC count was increased and she was started on intraperitoneal fortaz again. She had a right upper quadrant ultrasound which did not show any signs of biliary disease. She continued to complain of abdominal pain especially on instil and drainage. Her peritoneal culture came back with yeast. Dr. Archer was contacted. She was instructed no further peritoneal dialysis. Peritoneal catheter was removed on 08/31 and HD cath was placed. Patient seen and examined at bedside. She is currently undergoing her first round of HD. She reports that her abdominal pain is resolved. She is just feeling tired and lethargic today. No chest pain, shortness breath, nausea, or vomiting. Objective - Vital Signs Vital signs: Vital Signs Temp 98.0 F 09/02/19 14:59 Pulse 85 09/02/19 14:59 Resp 20 09/02/19 14:59 BP 123/56 09/02/19 14:59 Pulse Ox 96 09/02/19 11:37 Intake & Output 09/01/19 09/02/19 09/02/19 18:59 06:59 18:59 Intake Total 1150 940 Output Total 3 800 Balance 1147 940 -800 Weight 107.5 kg Intake: IV 550 350 Oral 600 590 Output: Hemodialysis 800 Estimated Blood Loss 3 Other: Voiding Method Bedside Commode Bedside Commode Incontinent Incontinent Incontinent # Voids 0 0 - Exam General: Ill appearing, no distress, appears at stated age Derm: warm, dry Head: atraumatic, normocephalic, symmetric Eyes: EOMI, no lid lag, anicteric sclera Mouth: no lip lesion, mucus membranes moist Cardiovascular: S1S2 reg, no murmur, positive posterior L, R BKA, Lungs: Decreased bs bilateral, no rhonchi, no rales , no accessory muscle use Abdominal: soft, + tender to palpation diffusely, no guarding, no appreciable organomegaly Ext: no gross muscle atrophy, no edema, no contractures Neuro: CN II-XI grossly intact, no focal neuro deficits Psych: Alert, oriented, appropriate affect - Labs CBC & Chem 7: 09/02/19 05:41 09/02/19 05:41 Labs: Abnormal Lab Results - Last 24 Hours (Table) 09/01/19 09/01/19 09/01/19 Range/Units 08:42 17:43 19:39 WBC (3.8-10.6) k/uL RBC (3.80-5.40) m/uL Hgb (11.4-16.0) gm/dL MCHC (31.0-37.0) g/dL RDW (11.5-15.5) % Sodium (137-145) mmol/L Chloride (98-107) mmol/L BUN (7-17) mg/dL Creatinine (0.52-1.04) mg/dL Glucose (74-99) mg/dL POC Glucose (mg/dL) 133 H 144 H (75-99) mg/dL Calcium (8.4-10.2) mg/dL Hep Bs Antibody Reactive H (Non-Reactive) 09/01/19 09/02/19 09/02/19 Range/Units 21:07 02:28 05:41 WBC 21.3 H (3.8-10.6) k/uL RBC 3.75 L (3.80-5.40) m/uL Hgb 10.8 L (11.4-16.0) gm/dL MCHC 29.9 L (31.0-37.0) g/dL RDW 18.3 H (11.5-15.5) % Sodium (137-145) mmol/L Chloride (98-107) mmol/L BUN (7-17) mg/dL Creatinine (0.52-1.04) mg/dL Glucose (74-99) mg/dL POC Glucose (mg/dL) 191 H 258 H (75-99) mg/dL Calcium (8.4-10.2) mg/dL Hep Bs Antibody (Non-Reactive) 09/02/19 09/02/19 09/02/19 Range/Units 05:41 06:59 11:09 WBC (3.8-10.6) k/uL RBC (3.80-5.40) m/uL Hgb (11.4-16.0) gm/dL MCHC (31.0-37.0) g/dL RDW (11.5-15.5) % Sodium 135 L (137-145) mmol/L Chloride 97 L (98-107) mmol/L BUN 46 H (7-17) mg/dL Creatinine 12.55 H* (0.52-1.04) mg/dL Glucose 236 H (74-99) mg/dL POC Glucose (mg/dL) 266 H 116 H (75-99) mg/dL Calcium 7.1 L (8.4-10.2) mg/dL Hep Bs Antibody (Non-Reactive) Microbiology - Last 24 Hours (Table) 08/29/19 12:51 Anaerobic Culture - Final Heel - Left Isabela glabrata 08/27/19 01:50 Blood Culture - Final Blood No Growth after 144 hours 08/28/19 19:00 Gram Stain - Final Peritoneal Fluid Body Fluid Culture - Final Isabela glabrata 08/27/19 01:19 Gram Stain - Final Peritoneal Fluid Body Fluid Culture - Final Isabela glabrata Assessment and Plan Assessment: Fungal peritonitis resulting in intractable abdominal pain - peritoneal cath removed 08/31 - ID recs appreciated on Eraxis - gallbladder US negative End-stage renal disease being transitioned to HD - Nephro recs - HD cath placed 08/31 - 1st HD on 09/01 - patient has hx of hypotnesion on HD, will monitor closely - phoslo - midodrine prn Diabetes mellitus type 2, insulin-dependent chronically on pump -Pump on hold -A1c 7.5 -Sliding-scale insulin, levemir and novolog decreased with transition to HD Generalized weakness -PT/OT -PMR recs appreciated Anemia of chronic kidney disease -Hemoglobin currently at goal -Follow CBC -Outpatient follow-up Stage IV left heel ulcer -Santyl -ID recs -Debrided on 08/[address] Jaramillo Constipation - lactulose as needed, has started having bowel movement - Avoid narcotics, trial of Flexeril for pain Hypomagnesemia, resolved Possible group D urinary tract infection, ruled out DVT prophylaxis: Heparin Discussed with: Patient, nursing Anticipated discharge: 3-[address]: SNF VS [facility] A total of 35 minutes was spent on the care of this complex patient more than 50% of the time was spent in counseling and care coordination.
[2019-09-02] MEDS ORDERED: HYDROmorphone 0.5 MG/0.5 ML SYRINGE IVP PRN (15:56)
[2019-09-02 17:11] LABS: Glucose,Whole Blood 118 mg/dL (75-99)
[2019-09-02] MEDS: ANIDULAFUNGIN 100 MG in SODIUM CHLORIDE 0.9% 100 ML IVPB SCH (17:38)
--- NOTE | 2019-09-02 17:44 | PN ---
PROGRESS NOTE DATE OF SERVICE: 09/02/2019 REASON FOR FOLLOWUP: 1. Peritonitis. 2. Left heel wound. INTERVAL HISTORY: The patient is currently afebrile. The patient is status post removal of her dialysis catheter and right subclavian catheter has been placed for hemodialysis. Patient overall is mentioning improvement in her abdominal pain. No chest pain or shortness of breath or cough. No pain to the left heel area. PHYSICAL EXAMINATION: Blood pressure 123/56, pulse of 85, temperature 98. She is 96% on room air. GENERAL description is an elderly female lying in bed in no distress. RESPIRATORY system: Unlabored breathing. Clear to auscultation anteriorly. HEART S1, S2. Regular rate and rhythm. ABDOMEN: Soft. No tenderness. LABS: Hemoglobin is 10.8, white count 21.3, BUN of 46, creatinine is 12.55. DIAGNOSTIC IMPRESSION AND PLAN: 1. Patient with yeast. PD catheter associated peritonitis. Culture showed Isabela glabrata. Patient on Eraxis to continue. 2. Left heel wound. Local care to continue with Santyl with multiple pathogen more likely finalization. No need for any systemic antibiotic for the same. MMODL / IJN: [id number] /
[2019-09-02 20:40] LABS: Glucose,Whole Blood 135 mg/dL (75-99)
[2019-09-02] MEDS: INSULIN DETEMIR (LEVEMIR) 100 UNIT/ML SYR SQ SCH (22:00)
[2019-09-03 02:14] LABS: Glucose,Whole Blood 181 mg/dL (75-99)
[2019-09-03] MEDS: LEVOTHYROXINE 75 MCG TAB PO SCH (05:50)
[2019-09-03] MEDS: ONDANSETRON 4 MG/2 ML VIAL IVP PRN (06:00)
[2019-09-03 06:50] LABS: Anisocytosis Slight; HCT 32.9 % (34.0-46.0); HGB 10.1 gm/dL (11.4-16.0); Hypochromasia Marked; MCH 29.6 pg (25.0-35.0); MCHC 30.6 g/dL (31.0-37.0); MCV 96.8 fL (80.0-100.0); Macrocytosis Slight; Mean Platelet Volume 10.1; Platelet Count 312 k/uL (150-450); RDW 18.2 % (11.5-15.5); WBC 17.7 k/uL (3.8-10.6)
[2019-09-03 07:13] LABS: Calcium 7.6 mg/dL (8.4-10.2); Potassium 4.5 mmol/L (3.5-5.1)
[2019-09-03 07:21] LABS: Glucose,Whole Blood 185 mg/dL (75-99)
[2019-09-03] MEDS: CYCLOBENZAPRINE 5 MG TAB PO PRN (07:47)
[2019-09-03] MEDS: ACETAMINOPHEN TAB 325 MG TAB PO PRN (07:48)
[2019-09-03] MEDS: PANTOPRAZOLE 40 MG TABLET PO SCH (07:49)
[2019-09-03] MEDS: METOPROLOL TARTRATE 25 MG TAB PO SCH ×2 (07:49→20:41)
[2019-09-03] MEDS: PREGABALIN 25 MG CAP PO SCH ×2 (07:49→21:24)
[2019-09-03] MEDS: CALCIUM ACETATE 667 MG TAB PO SCH ×3 (07:49→18:20)
[2019-09-03] MEDS: CLOPIDOGREL 75 MG TAB PO SCH (07:49)
[2019-09-03] MEDS: HEPARIN SODIUM,PORCINE 5,000 UNIT/ML 1 ML VIAL SQ SCH ×2 (07:49→18:19)
[2019-09-03] MEDS: COLLAGENASE 250 UNIT/GM OINTMENT 30 GM TUBE TOPICAL SCH (07:50)
[2019-09-03] MEDS: INSULIN ASPART (NovoLOG) 100 UNIT/ML VIAL SQ SCH ×7 (07:50→21:06)
--- NOTE | 2019-09-03 10:27 | P.PN ---
Subjective Progress Note Date: 09/03/19 Principal diagnosis: Fungal peritonitis Patient doing well today. No abdominal pain. Tolerating diet. Some cough. Objective - Vital Signs Vital signs: Vital Signs Temp 98.7 F 09/03/19 05:48 Pulse 85 09/03/19 05:48 Resp 18 09/03/19 05:48 BP 132/78 09/03/19 05:48 Pulse Ox 97 09/03/19 05:48 Intake & Output 09/02/19 09/03/19 09/03/19 18:59 06:59 18:59 Intake Total 115 Output Total 800 Balance -800 115 Weight 107.5 kg Intake: Intake, IV Titration 115 Amount IV Fluid Continuation 1, 80 000 ml @ 0 mls/hr IV .[facility] -[facility] Rx#:[id number] Sodium Chloride 0.9% 500 35 ml 500 ml @ 0 mls/hr IV . [facility] Rx#: [id number] Output: Hemodialysis 800 Other: Voiding Method Incontinent Incontinent Incontinent # Voids 0 1 - Exam Abdomen: Soft, nondistended, incision clean and dry, no drainage from catheter site - Labs CBC & Chem 7: 09/03/19 05:38 09/03/19 05:38 Labs: Abnormal Lab Results - Last 24 Hours (Table) 09/02/19 09/02/19 09/02/19 Range/Units 11:09 17:09 20:39 WBC (3.8-10.6) k/uL RBC (3.80-5.40) m/uL Hgb (11.4-16.0) gm/dL Hct (34.0-46.0) % MCHC (31.0-37.0) g/dL RDW (11.5-15.5) % BUN (7-17) mg/dL Creatinine (0.52-1.04) mg/dL Glucose (74-99) mg/dL POC Glucose (mg/dL) 116 H 118 H 135 H (75-99) mg/dL Calcium (8.4-10.2) mg/dL 09/03/19 09/03/19 09/03/19 Range/Units 02:11 05:38 05:38 WBC 17.7 H (3.8-10.6) k/uL RBC 3.40 L (3.80-5.40) m/uL Hgb 10.1 L (11.4-16.0) gm/dL Hct 32.9 L (34.0-46.0) % MCHC 30.6 L (31.0-37.0) g/dL RDW 18.2 H (11.5-15.5) % BUN 28 H (7-17) mg/dL Creatinine 8.43 H* (0.52-1.04) mg/dL Glucose 180 H (74-99) mg/dL POC Glucose (mg/dL) 181 H (75-99) mg/dL Calcium 7.6 L (8.4-10.2) mg/dL 09/03/19 Range/Units 07:15 WBC (3.8-10.6) k/uL RBC (3.80-5.40) m/uL Hgb (11.4-16.0) gm/dL Hct (34.0-46.0) % MCHC (31.0-37.0) g/dL RDW (11.5-15.5) % BUN (7-17) mg/dL Creatinine (0.52-1.04) mg/dL Glucose (74-99) mg/dL POC Glucose (mg/dL) 185 H (75-99) mg/dL Calcium (8.4-10.2) mg/dL Microbiology - Last 24 Hours (Table) 08/29/19 12:51 Anaerobic Culture - Final Heel - Left Isabela glabrata Assessment and Plan (1) Peritonitis associated with peritoneal dialysis Narrative/Plan: doing well at this time from a surgical standpoint. Continue diet as tolerated. We'll sign off. Call if needed. Current Visit: No Status: Acute Priority: High Code(s): T85.71XA - INFECT/INFLM REACTION DUE TO PERITON DIALYSIS CATHETER, INIT SNOMED Code(s): 386878912
[2019-09-03 11:29] LABS: Glucose,Whole Blood 197 mg/dL (75-99)
[2019-09-03] MEDS ORDERED: ALBUTEROL NEBULIZED 2.5 MG/3 ML INHALATION PRN (12:57)
--- NOTE | 2019-09-03 13:05 | P.PN ---
Subjective Progress Note Date: 09/03/19 Patient is 64-year-old -[place] female with diabetes mellitus type 2 requiring insulin pump, end-stage renal disease on peritoneal dialysis, hypertension, dyslipidemia, GERD, and memory impairment who presented to the emergency department with complaints of 5 days of abdominal pain. Of note amara garay has been hospitalized multiple times over the last month secondary to abdominal pain initially she was found to have peritonitis and was treated with intraperitoneal antibiotics. At her next admission she had altered mentation which was felt to be secondary to pain medications in conjunction with her peritoneal dialysis. She was unable to be placed at senior care facility secondary to needing peritoneal dialysis. She then reported to our facility on 08/25 with again 5 days of abdominal pain. In the ER she was found to have vital signs within normal limits. Laboratory analysis was consistent with her known end-stage renal disease, urinalysis showed elevated white blood cell count h owever patient does not routinely urinate. Covid testing was negative. CT abdomen and pelvis showed no acute process. She was admitted for possible peritonitis was started on empiric vancomycin Rocephin. Her peritoneal fluid came back negative for infection. She was seen by nephrology who recommending continuing peritoneal dialysis. Urine came back with possible group D enterococcus urinary tract infection. Patient's Rocephin was switched to ampicillin and infectious disease was consulted. Infectious disease discontinued antibiotics as they Clinically doubted symptomatic urinary tract infection. She continued to have nausea and vomiting through 08/27. She was feeling better on 08/28 but continued to have abdominal pain, nephrology was concerned about peritonitis as the WBC count was increased and she was started on intraperitoneal fortaz again. She had a right upper quadrant ultrasound which did not show any signs of biliary disease. She continued to complain of abdominal pain especially on instil and drainage. Her peritoneal culture came back with yeast. Dr. Archer was contacted. She was instructed no further peritoneal dialysis. Peritoneal catheter was removed on 08/31 and HD cath was placed. 09/02 patient was seen, evaluated, and examined by me today. She reports feeling generally weak today. She is having more cough and shortness of breath this morning. She said that her cough is nonproductive. She denies any fevers or chills. She denies ever being diagnosed with COPD. Objective - Vital Signs Vital signs: Vital Signs Temp 99.0 F 09/03/19 11:25 Pulse 78 09/03/19 11:25 Resp 16 09/03/19 11:25 BP 110/52 09/03/19 11:25 Pulse Ox 93 L 09/03/19 11:25 Intake & Output 09/02/19 09/03/19 09/03/19 18:59 06:59 18:59 Intake Total 115 Output Total 800 Balance -800 115 Weight 107.5 kg Intake: Intake, IV Titration 115 Amount IV Fluid Continuation 1, 80 000 ml @ 0 mls/hr IV .[facility] Rx#:[id number] Sodium Chloride 0.9% 500 35 ml 500 ml @ 0 mls/hr IV . [facility] Rx#: [id number] Output: Hemodialysis 800 Other: Voiding Method Incontinent Incontinent Incontinent # Voids 0 2 - Exam General: The patient is awake and alert, in no distress Eye: there is normal conjunctiva bilaterally. Neck: The neck is supple, there is no JVD. Cardiovascular: Normal S1-S2, no S3-S4, no murmurs. Respiratory: Lungs are tight with end expiratory wheezing Gastrointestinal: Abdomen is soft, nontender Musculoskeletal: There is no pedal edema. Neurological:. Speech is normal. Skin: Skin is warm and dry - Labs CBC & Chem 7: 09/03/19 05:38 09/03/19 05:38 Labs: Abnormal Lab Results - Last 24 Hours (Table) 09/02/19 09/02/19 09/03/19 Range/Units 17:09 20:39 02:11 WBC (3.8-10.6) k/uL RBC (3.80-5.40) m/uL Hgb (11.4-16.0) gm/dL Hct (34.0-46.0) % MCHC (31.0-37.0) g/dL RDW (11.5-15.5) % BUN (7-17) mg/dL Creatinine (0.52-1.04) mg/dL Glucose (74-99) mg/dL POC Glucose (mg/dL) 118 H 135 H 181 H (75-99) mg/dL Calcium (8.4-10.2) mg/dL 09/03/19 09/03/19 09/03/19 Range/Units 05:38 05:38 07:15 WBC 17.7 H (3.8-10.6) k/uL RBC 3.40 L (3.80-5.40) m/uL Hgb 10.1 L (11.4-16.0) gm/dL Hct 32.9 L (34.0-46.0) % MCHC 30.6 L (31.0-37.0) g/dL RDW 18.2 H (11.5-15.5) % BUN 28 H (7-17) mg/dL Creatinine 8.43 H* (0.52-1.04) mg/dL Glucose 180 H (74-99) mg/dL POC Glucose (mg/dL) 185 H (75-99) mg/dL Calcium 7.6 L (8.4-10.2) mg/dL 09/03/19 Range/Units 11:26 WBC (3.8-10.6) k/uL RBC (3.80-5.40) m/uL Hgb (11.4-16.0) gm/dL Hct (34.0-46.0) % MCHC (31.0-37.0) g/dL RDW (11.5-15.5) % BUN (7-17) mg/dL Creatinine (0.52-1.04) mg/dL Glucose (74-99) mg/dL POC Glucose (mg/dL) 197 H (75-99) mg/dL Calcium (8.4-10.2) mg/dL Microbiology - Last 24 Hours (Table) 08/29/19 12:51 Anaerobic Culture - Final Heel - Left Isabela glabrata Assessment and Plan Assessment: Fungal peritonitis resulting in intractable abdominal pain - peritoneal cath removed 08/31 - ID recs appreciated on Eraxis - gallbladder US negative End-stage renal disease: transitioned to HD - Nephro recs - HD cath placed 08/31 - 1st HD on 09/01 - patient has hx of hypotnesion on HD, will monitor closely - phoslo - midodrine prn Diabetes mellitus type 2, insulin-dependent chronically on pump -Pump on hold -A1c 7.5 -Sliding-scale insulin, levemir and novolog decreased with transition to HD Reactive airway disease with wheezing -We'll start bronchodilators and obtain follow-up chest x-ray for further evaluation -No known history of COPD Generalized weakness -PT/OT -PMR recs appreciated Anemia of chronic kidney disease -Outpatient follow-up Stage IV left heel ulcer -Santyl -ID recs -Debrided on 08/[address] Jaramillo Constipation - lactulose as needed, has started having bowel movement - Avoid narcotics, trial of Flexeril for pain Hypomagnesemia, resolved Possible group D urinary tract infection, ruled out DVT prophylaxis: Heparin Discussed with: Patient, nursing Anticipated discharge: 1-[address]: [facility] inpatient rehab A total of 35 minutes was spent on the care of this complex patient more than 50% of the time was spent in counseling and care coordination.
--- NOTE | 2019-09-03 13:33 | XR ---
EXAMINATION TYPE: XR chest 2V DATE OF EXAM: 09/03/2019 COMPARISON: Chest x-ray September 01, 2019 HISTORY: Shortness of breath and cough. TECHNIQUE: Frontal and lateral views of the chest are obtained. FINDINGS: Stable large bore dual lumen right internal jugular dialysis catheter. There is persistent cardiomegaly with mild central vascular congestion on current study. No new pleural effusion or pneu mothorax. Surgical change to the cervical spine redemonstrated. IMPRESSION: Cardiomegaly with new mild central vascular congestion. Correlate for fluid overload sta te or CHF exacerbation.
--- NOTE | 2019-09-03 15:07 | PN ---
PROGRESS NOTE Patient is seen for followup for end-stage renal disease. She was switched over to hemodialysis secondary to fungal peritonitis and fluid culture also growing VRE. Patient's abdominal pain has improved. However, she is complaining of shortness of breath today. She is scheduled for hemodialysis today and then again in a.m. She does appear to be volume overloaded. PHYSICAL EXAMINATION: On examination today, blood pressure was 110/52, heart rate 78 per minute, she is afebrile. Examination of the lower extremities shows no significant edema; however, face appears to be puffy. Abdomen is soft. No significant tenderness noted. MANAGING CONSULTANT exam grossly intact. LABS: Show sodium 140, potassium 4.5, white cell count 17.7, hemoglobin 10.1, creatinine 8.43. ASSESSMENT: 1. End-stage renal disease, switch to hemodialysis yesterday. Patient will be dialyzed today and then again in a.m. 2. Volume overload. Expect improvement with ongoing dialysis and ultrafiltration. 3. CAPD peritonitis with fluid culture growing VRE and Isabela glabrata, being followed by ID, status post removal of PD catheter. 4. Generalized debility. 5. CKD mineral bone disorder. PLAN: Hemodialysis today and then again in a.m. Encourage increased oral intake. Increase UF as tolerated with dialysis. MMODL / IJN: [id number] /
[2019-09-03] MEDS: IPRATROPIUM-ALBUTEROL 3 ML NEB INHALATION SCH ×2 (15:25→19:17)
[2019-09-03] MEDS: MIDODRINE 5 MG TAB PO PRN (16:29)
--- NOTE | 2019-09-03 17:04 | PN ---
PROGRESS NOTE DATE OF SERVICE: 09/03/2019 REASON FOR FOLLOWUP: 1. PD catheter associated peritonitis Isabela glabrata. 2. Left heel wound. INTERVAL HISTORY: The patient is currently afebrile. The patient abdominal pain has improved. She is complaining of some shortness of breath and cough. No chest pain. No pain to the left heel area. PHYSICAL EXAMINATION: Blood pressure 120/52 with a pulse of 78, temperature 99, she is 93% on room air. General description is an elderly female, lying in bed in no distress. RESPIRATORY SYSTEM: Unlabored breathing, clear to auscultation anteriorly. HEART: S1, S2. Regular rate and rhythm. ABDOMEN: Soft, no tenderness. Left knee is currently dressed up. LABS: Hemoglobin is 10.1, white count of 17.7, BUN of 28, creatinine is 8.43. DIAGNOSTIC IMPRESSION AND PLAN: 1. Patient with PD catheter associated peritonitis, culture has been positive for Isabela glabrata. Patient's catheter has been discontinued. Currently covered with Eraxis treatment, should be at least 3 weeks. 2. Left heel wound with multiple pathogen, likely colonization. Local care to continue center. Keep the area dry and off the pressure. MMODL / IJN: [id number] /
[2019-09-03 17:06] LABS: Glucose,Whole Blood 122 mg/dL (75-99)
--- NOTE | 2019-09-03 17:27 | PN ---
PROGRESS NOTE This is a 64-year-old female known to me. The patient has history of acute on chronic renal failure. The patient was on peritoneal dialysis, which was infected. We placed a right IJ catheter. The patient also has a wound on her left heel which we have been following in the wound clinic. We have been using Santyl cream on a daily basis. If the patient goes home, then she has come to the wound clinic at [facility] for followup on Sunday. We will follow with you. MMPETER / LAKEN: [id number] /
[2019-09-03] MEDS: ANIDULAFUNGIN 100 MG in SODIUM CHLORIDE 0.9% 100 ML IVPB SCH (18:20)
[2019-09-03 20:53] LABS: Glucose,Whole Blood 106 mg/dL (75-99)
[2019-09-03] MEDS: INSULIN DETEMIR (LEVEMIR) 100 UNIT/ML SYR SQ SCH (21:07)
[2019-09-03] MEDS ORDERED: HEPARIN SODIUM,PORCINE 5,000 UNIT/ML 1 ML VIAL ONE (23:50)
[2019-09-04] MEDS ORDERED: ACETAMINOPHEN TAB 325 MG TAB ONE (00:20)
[2019-09-04 04:21] LABS: Glucose,Whole Blood 232 mg/dL (75-99)
[2019-09-04] MEDS: HEPARIN SODIUM,PORCINE 5,000 UNIT/ML 1 ML VIAL SQ SCH ×2 (04:23→09:26)
[2019-09-04] MEDS: LEVOTHYROXINE 75 MCG TAB PO SCH ×2 (05:48→09:27)
[2019-09-04 07:01] LABS: Glucose,Whole Blood 287 mg/dL (75-99)
[2019-09-04] MEDS: IPRATROPIUM-ALBUTEROL 3 ML NEB INHALATION SCH ×3 (07:29→15:28)
[2019-09-04 08:32] LABS: Anisocytosis Slight; Basophils # (A) 0.1 k/uL (0-0.2); Basophils % (A) 0 %; Eosinophils # (A) 0.1 k/uL (0-0.7); Eosinophils % (A) 1 %; HCT 38.6 % (34.0-46.0); HGB 11.1 gm/dL (11.4-16.0); Hypochromasia Marked; Lymphocytes # (A) 0.8 k/uL (1.0-4.8); Lymphocytes % (A) 5 %; MCH 28.8 pg (25.0-35.0); MCHC 28.8 g/dL (31.0-37.0); MCV 100.1 fL (80.0-100.0); Macrocytosis Moderate; Mean Platelet Volume 10.8; Monocytes # (A) 0.7 k/uL (0-1.0); Monocytes % (A) 5 %; Neutrophils # (A) 12.9 k/uL (1.3-7.7); Neutrophils % (A) 88 %; Platelet Count 228 k/uL (150-450); RBC 3.86 m/uL (3.80-5.40); RDW 18.6 % (11.5-15.5); WBC 14.8 k/uL (3.8-10.6)
[2019-09-04 08:51] LABS: Large Platelets Present; Poikilocytosis (M) Present
[2019-09-04] MEDS: CALCIUM ACETATE 667 MG TAB PO SCH ×2 (09:25→13:30)
[2019-09-04] MEDS: INSULIN ASPART (NovoLOG) 100 UNIT/ML VIAL SQ SCH ×4 (09:25→13:31)
[2019-09-04] MEDS: CLOPIDOGREL 75 MG TAB PO SCH (09:26)
[2019-09-04] MEDS: PANTOPRAZOLE 40 MG TABLET PO SCH (09:27)
[2019-09-04] MEDS: PREGABALIN 25 MG CAP PO SCH (09:27)
[2019-09-04] MEDS: METOPROLOL TARTRATE 25 MG TAB PO SCH (09:27)
[2019-09-04] MEDS: COLLAGENASE 250 UNIT/GM OINTMENT 30 GM TUBE TOPICAL SCH (09:34)
[2019-09-04 10:48] LABS: Calcium 7.7 mg/dL (8.4-10.2); Potassium 3.7 mmol/L (3.5-5.1)
[2019-09-04 11:06] LABS: Glucose,Whole Blood 365 mg/dL (75-99)
[2019-09-04] MEDS: MIDODRINE 5 MG TAB PO PRN (12:14)
[2019-09-04 12:29] VITALS: RESP 18
--- NOTE | 2019-09-04 14:11 | PN ---
PROGRESS NOTE Patient is seen for followup for end-stage renal disease. She was dialyzed yesterday, we had about 3 L of ultrafiltration. Patient's volume status is improved. This morning she is complaining of difficulty in hearing. Patient states that she is not able to hear again. She did have this occur previously and then it resolved on its own. It was thought to be possibly drug effect. Abdominal pain is improved. Oral intake somewhat improved. PHYSICAL EXAMINATION: On examination, blood pressure 109/57, heart rate 89 per minute, patient is afebrile. Examination of the heart S1, S2. Examination of the lungs, decreased breath sounds at bases. Abdomen is soft, nontender. Examination of the lower extremities shows much improved edema. HVAC INSTRUCTOR exam grossly intact. LABS: Show hemoglobin 11.1, white cell count 14.8, sodium 135, potassium 3.7, BUN 24, creatinine 6.58. ASSESSMENT: 1. End-stage renal disease, now switched to hemodialysis. 2. CAPD peritonitis with fluid cultures growing Isabela Glabrata as well as VRE. Currently status post removal of PD catheter, maintained on antifungals treatment, status post prolonged antibiotics previously. 3. Hypotension, maintained on midodrine. 4. Hearing loss. Consider ENT evaluation. 5. CKD mineral bone disorder, maintained on PhosLo. PLAN: Continue to encourage increased oral intake. Possible ENT evaluation and repeat hemodialysis today and then again in a.m. Outpatient placement. JAMESL / LAKEN: [id number] /
[2019-09-04 14:22] VITALS: BP 124/61; PULSE 80; TEMP 98.4
--- NOTE | 2019-09-04 14:59 | P.DS ---
Providers Date of admission: 08/26/19 21:49 Expected date of discharge: 09/04/19 Attending physician: Olivier Multani MD Consults: 08/26/19 23:46 Consult Physician Urgent Consulting Provider: Semaj Chu Consult Reason/Comments: Peritioneal diaylasis Do you want consulting provider notified?: Yes 08/28/19 09:02 Consult Physician Routine Consulting Provider: Kevin Jean-Baptiste Consult Reason/Comments: for in pt rehab Do you want consulting provider notified?: Yes 08/28/19 10:05 Consult Physician Routine Consulting Provider: Jean-Pierre Posey Consult Reason/Comments: uti, wound care Do you want consulting provider notified?: Yes 08/28/19 23:03 Consult Physician Routine Consulting Provider: Jc Jaramillo Consult Reason/Comments: left heel wound , surgical debridment Do you want consulting provider notified?: Yes, Notify in am 09/01/19 09:16 Consult Physician Routine Consulting Provider: Piero Strickland Consult Reason/Comments: PD cath removal Do you want consulting provider notified?: Already Contacted Primary care physician: [facility] Course: Patient is 64-year-old -[place] female with diabetes mellitus type 2 requiring insulin pump, end-stage renal disease on peritoneal dialysis, hypertension, dyslipidemia, GERD, and memory impairment who presented to the emergency department with complaints of 5 days of abdominal pain. Of note patient has been hospitalized multiple times over the last month secondary to abdominal pain initially she was found to have peritonitis and was treated with intraperitoneal antibiotics. At her next admission she had altered mentation which was felt to be secondary to pain medications in conjunction with her peritoneal dialysis. She was unable to be placed at long-term facility secondary to needing peritoneal dialysis. She then reported to our facility on 08/25 with again 5 days of abdominal pain. In the ER she was found to have vital signs within normal limits. Laboratory analysis was consistent with her known end-stage renal disease, urinalysis showed elevated white blood cell count however patient does not routinely urinate. Covid testing was negative. CT abdomen and pelvis showed no acute process. She was admitted for possible peritonitis was started on empiric vancomycin Rocephin. Her peritoneal fluid came back negative for infection. She was seen by nephrology who recommending continuing peritoneal dialysis. Urine came back with possible group D enterococcus urinary tract infection. Patient's Rocephin was switched to ampicillin and infectious disease was consulted. Infectious disease discontinued antibiotics as they Clinically doubted symptomatic urinary tract infection. She continued to have nausea and vomiting through 08/27. She was feeling better on 08/28 but continued to have abdominal pain, nephrology was concerned about peritonitis as the WBC count was increased and she was started on intraperitoneal fortaz again. She had a right upper quadrant ultrasound which did not show any signs of biliary disease. She continued to complain of abdominal pain especially on instil and drainage. Her peritoneal culture came back with yeast. Dr. Archer was contacted. She was instructed no further peritoneal dialysis. Peritoneal catheter was removed on 08/31 and HD cath was placed. The [place] of her medical problems as listed during this hospit alization Fungal peritonitis resulting in intractable abdominal pain - peritoneal cath removed 08/31 - ID recs appreciated on Eraxis 100 mg once a day for 3 weeks started on 09/01 - gallbladder US negative End-stage renal disease: transitioned to HD - Nephro recs - HD cath placed 08/31 - HD on 09/01 - patient has hx of hypotnesion on HD, will monitor closely - phoslo - midodrine prn Diabetes mellitus type 2, insulin-dependent chronically on pump -Pump on hold -A1c 7.5 -Sliding-scale insulin Generalized weakness -PT/OT -Plan to discharge to inpatient rehab at [facility] Anemia of chronic kidney disease -Outpatient follow-up Stage IV left heel ulcer -Santyl -ID recs -Debrided on 08/[address] Jaramillo Patient will be discharged in a stable condition. For further details about this hospitalization please refer to the electronic chart Patient Condition at Discharge: Stable Plan - Discharge Summary Discharge Rx Participant: No New Discharge Prescriptions: New Midodrine [ProAmatine] 10 mg PO DAILY PRN tab PRN Reason: Blood Pressure - Low Continue Pantoprazole [Protonix] 40 mg PO DAILY Levothyroxine Sodium [Synthroid] 75 mcg PO DAILY Clopidogrel [Plavix] 75 mg PO DAILY Metoprolol Tartrate [Lopressor] 25 mg PO BID #0 tab Potassium Chloride ER [K-Dur 10] 10 meq PO DAILY tab.er.prt Calcium Acetate [PhosLo] 667 mg PO TID-W/MEALS cap Acetaminophen Tab [Tylenol] 650 mg PO Q6HR PRN tab PRN Reason: Fever And/ Or Pain Collagenase [Santyl] 1 applic TOPICAL DAILY Epoetin Edgardo [Procrit] 4,000 unit SQ MOWEFR Torsemide [Demadex] 100 mg PO DAILY Calcitriol [Rocaltrol] 0.25 mcg PO Q7D Pregabalin [Lyrica] 25 mg PO BID #60 cap Discharge Medication List Levothyroxine Sodium [Synthroid] 75 mcg PO DAILY 10/09/16 [History] Pantoprazole [Protonix] 40 mg PO DAILY 10/09/16 [History] Clopidogrel [Plavix] 75 mg PO DAILY 03/11/17 [History] Metoprolol Tartrate [Lopressor] 25 mg PO BID #0 tab 11/15/18 [Rx] Acetaminophen Tab [Tylenol] 650 mg PO Q6HR PRN tab 02/27/19 [Rx] Calcium Acetate [PhosLo] 667 mg PO TID-W/MEALS cap 02/27/19 [Rx] Potassium Chloride ER [K-Dur 10] 10 meq PO DAILY tab.er.prt 02/27/19 [Rx] Calcitriol [Rocaltrol] 0.25 mcg PO Q7D 07/27/19 [History] Collagenase [Santyl] 1 applic TOPICAL DAILY 07/27/19 [History] Epoetin Edgardo [Procrit] 4,000 unit SQ MOWEFR 07/27/19 [History] Torsemide [Demadex] 100 mg PO DAILY 07/27/19 [History] Pregabalin [Lyrica] 25 mg PO BID #60 cap 08/13/19 [Rx] Midodrine [ProAmatine] 10 mg PO DAILY PRN tab 09/04/19 [Rx] Follow up Appointment(s)/Referral(s): Keyur Pettit [Primary Care Provider] - 1-2 days Discharge Disposition: TRANSFER TO SNF/ECF
[2019-09-04] MEDS: ANIDULAFUNGIN 100 MG in SODIUM CHLORIDE 0.9% 100 ML IVPB SCH (15:35)
--- NOTE | 2019-09-04 17:17 | PN ---
PROGRESS NOTE DATE OF SERVICE: 09/04/2019 REASON FOR FOLLOWUP: 1. Yeast catheter associated peritonitis. 2. Left heel wound. INTERVAL HISTORY: The patient did have a low-grade fever last night of 100.9. The patient afebrile since then. She has been breathing comfortably. Abdominal pain has improved. No vomiting or diarrhea reported on any pain to the left heel area. PHYSICAL EXAMINATION: Blood pressure 124/61 with a pulse of 80, temperature 98.4. She is 92% on 2 L nasal cannula. General description is an elderly female, lying in bed in no distress. RESPIRATORY SYSTEM: Unlabored breathing clear to auscultation anteriorly. HEART: S1, S2. Regular rate and rhythm. ABDOMEN: Soft, no tenderness. LABS: Hemoglobin 11.1, white count is 14.8, BUN of 24, creatinine 6.58. DIAGNOSTIC IMPRESSION AND PLAN: 1. Patient with Isabela glabrata PD catheter associated peritonitis. The patient will need to continue with antifungals for at least 3 weeks. Currently on Eraxis 100 mg daily. 2. Left heel wound. Local care with Santyl followed by moist dressing, keep the area off the pressure. MMODL / IJN: [id number] /
--- NOTE | 2019-09-08 09:13 | CDI ---
Documentation Clarification Form Date: 09/08/19 From: Ailyn Mas Phone: If you have a question about this query, please contact Brenda Macdonald [employer] at [phone] between 8am and 5pm. Admit Date: 08/26/19 Discharge Date:09/04/19 Patient Name: Maldonado Cedillo Visit Number: [id number] ATTENTION: The Clinical Documentation Specialists (CDI) and [facility] Coding Staff appreciate your assistance in clarifying documentation. Please respond to the clarification below the line at the bottom and electronically sign. The CDI & [facility] Coding staff will review the response and follow-up if needed. Please note: Queries are made part of the Legal Health Record. If you have any questions, please contact the author of this message via ITS. Dear Dr. Jaramillo Per your operative note, a debridement was performed on the left heel pressure ulcer. History/Risk Factors: Chronic left heel wound stage 4, diabetes, neuropathy Clinical Indicators: Wound eschar, necrosis, slough tissue Treatment: Debridement Five elements required for accurate and compliant documentation of a debridement: 1. Technique used - excisional, 2. Instrument(s) used - scalpel, 3. Nature of the tissue removed - necrotic,and devitalized tissues, 4. Appearance and size of the wound - 5 x5.5 cm 5. Depth of the debridement* - subcutaneous tissue, ) In order to capture the severity of condition and code the appropriate procedure; could you please document the following: Excisional debridement (the removal of necrotic, devitalized tissue or slough by means of cutting away of tissue) Non-excisional debridement (the removal of necrotic, devitalized tissue or slough by means of flushing, brushing, or washing. (Irrigation) Excisional Debridement was used Unable to determine MTDD
== END 2019-09-04 17:27 | DRG 901 ==
LOC: EC 17:31 → 5NMEDONC 21:49 → OBSVTOIN 21:49 → UNDODISIN 09-04 16:10
PROVIDERS: ADMIT Internal Medicine; ATTEND Internal Medicine
PROC: 0JBR0ZZ Excision of Left Foot Subcutaneous Tissue and Fascia, Open Approach (ICD-10-PCS; principal; 2019-08-29)
PROC: 0WPG33Z Removal of Infusion Device from Peritoneal Cavity, Percutaneous Approach (ICD-10-PCS; 2019-09-01 18:55)
PROC: 0JH60XZ Insertion of Tunneled Vascular Access Device into Chest Subcutaneous Tissue and Fascia, Open Approach (ICD-10-PCS; 2019-09-01 18:55)
PROC: B5181ZZ Fluoroscopy of Superior Vena Cava using Low Osmolar Contrast (ICD-10-PCS; 2019-09-01 18:55)
PROC: 02HV33Z Insertion of Infusion Device into Superior Vena Cava, Percutaneous Approach (ICD-10-PCS; 2019-09-01 18:55)
PROC: 5A1D70Z Performance of Urinary Filtration, Intermittent, Less than 6 Hours Per Day (ICD-10-PCS; 2019-09-02)
DX: T85.71XA Infection and inflammatory reaction due to peritoneal dialysis catheter, initial encounter (principal); L89.624 Pressure ulcer of left heel, stage 4; K65.8 Other peritonitis; N18.6 End stage renal disease; B37.89 Other sites of candidiasis; I13.2 Hypertensive heart and chronic kidney disease with heart failure and with stage 5 chronic kidney disease, or end stage renal disease; N17.9 Acute kidney failure, unspecified; Z11.59 Encounter for screening for other viral diseases; E88.89 Other specified metabolic disorders; D63.1 Anemia in chronic kidney disease; E11.319 Type 2 diabetes mellitus with unspecified diabetic retinopathy without macular edema; E83.51 Hypocalcemia; E11.22 Type 2 diabetes mellitus with diabetic chronic kidney disease; E11.40 Type 2 diabetes mellitus with diabetic neuropathy, unspecified; I95.9 Hypotension, unspecified; E11.43 Type 2 diabetes mellitus with diabetic autonomic (poly)neuropathy; K31.84 Gastroparesis; E78.5 Hyperlipidemia, unspecified; E83.42 Hypomagnesemia; F32.9 Major depressive disorder, single episode, unspecified; F41.9 Anxiety disorder, unspecified; H91.90 Unspecified hearing loss, unspecified ear; J45.909 Unspecified asthma, uncomplicated; K21.9 Gastro-esophageal reflux disease without esophagitis; K59.00 Constipation, unspecified; M89.8X9 Other specified disorders of bone, unspecified site; E07.9 Disorder of thyroid, unspecified; R32 Unspecified urinary incontinence; E66.9 Obesity, unspecified; Z68.34 Body mass index [BMI] 34.0-34.9, adult; Z79.02 Long term (current) use of antithrombotics/antiplatelets; Z79.4 Long term (current) use of insulin; Z79.890 Hormone replacement therapy; Z79.899 Other long term (current) drug therapy; Z96.41 Presence of insulin pump (external) (internal); Z99.2 Dependence on renal dialysis; Z90.710 Acquired absence of both cervix and uterus; Z89.511 Acquired absence of right leg below knee; Z98.1 Arthrodesis status; Z86.14 Personal history of Methicillin resistant Staphylococcus aureus infection; Z88.5 Allergy status to narcotic agent; Z88.8 Allergy status to other drugs, medicaments and biological substances; Z80.0 Family history of malignant neoplasm of digestive organs; Z82.49 Family history of ischemic heart disease and other diseases of the circulatory system; Z83.3 Family history of diabetes mellitus; Y84.1 Kidney dialysis as the cause of abnormal reaction of the patient, or of later complication, without mention of misadventure at the time of the procedure
CPT/HCPCS: 36415; 36558; 71045; 71046; 74176; 76705; 76937; 77001; 80048; 80053; 80202; 81001; 82150; 83605; 83690; 83735; 84100; 85025; 85027; 85610; 85730; 86706; 87040; 87070; 87075; 87077; 87086; 87186; 87205; 87340; 87635; 89050; 90935; 93005; 94640; 96365; 96374; 96375; 99285

== ENCOUNTER → 2019-10-17 | Outpatient (CLI) | payer MEDICARE ==
--- NOTE | 2019-10-29 09:56 | MM ---
Reason for exam: screening (asymptomatic). Last mammogram was performed 4 years and 6 months ago. History: Benign excisional biopsy of the right breast, 2012. Physical Findings: A clinical breast exam by your physician is recommended on an annual basis and results should be correlated with mammographic findings. MG 3D Screening Mammo W/Cad Bilateral CC and MLO view(s) were taken. Prior study comparison: April 20, 2015, mammogram, performed at [facility]. April 07, 2015, mammogram, performed at [facility]. The breast tissue is heterogeneously dense. This may lower the sensitivity of mammography. Previous mammotome biopsy in the right breast. No significant changes when compared with prior studies. ASSESSMENT: Benign, BI-RAD 2 RECOMMENDATION: Routine screening mammogram of both breasts in 1 year.
== END | disposition home or self-care (01) ==
LOC: RADMAMWWP 15:40
PROVIDERS: ATTEND Family Medicine
DX: Z12.31 Encounter for screening mammogram for malignant neoplasm of breast (principal)
CPT/HCPCS: 77063; 77067

== ENCOUNTER → 2019-11-06 | Outpatient (CLI) | payer MEDICARE ==
[2019-11-06 12:25] LABS: Anisocytosis Slight; Basophils % (A) 1 %; Eosinophils # (A) 0.2 k/uL (0-0.7); Eosinophils % (A) 4 %; HCT 35.5 % (34.0-46.0); HGB 10.9 gm/dL (11.4-16.0); Hypochromasia Marked; Lymphocytes # (A) 0.7 k/uL (1.0-4.8); Lymphocytes % (A) 13 %; MCH 31.3 pg (25.0-35.0); MCHC 30.7 g/dL (31.0-37.0); MCV 101.9 fL (80.0-100.0); Macrocytosis Moderate; Mean Platelet Volume 9.5; Monocytes # (A) 0.2 k/uL (0-1.0); Monocytes % (A) 4 %; Neutrophils # (A) 3.9 k/uL (1.3-7.7); Neutrophils % (A) 77 %; Platelet Count 262 k/uL (150-450); RBC 3.49 m/uL (3.80-5.40); RDW 18.8 % (11.5-15.5)
[2019-11-06 18:07] LABS: T4, Free (Free Thyroxine) 1.3 ng/dL (0.80-1.80)
[2019-11-06 18:23] LABS: Albumin 3.7 g/dL (3.80-4.90); Albumin/Globulin Ratio 1.37 (1.60-3.17); Anion Gap 12.8 mmol/L (4.00-12.00); BUN/Creat Ratio 3.92 Ratio (12.00-20.00); Calcium 8.9 mg/dL (8.7-10.3); Carbon Dioxide 30.2 mmol/L (21.6-31.8); Globulin 2.7 g/dL (1.6-3.3); Potassium 4.4 mmol/L (3.5-5.5); Total Bilirubin 0.3 mg/dL (0.2-1.2); Total Protein 6.4 g/dL (6.2-8.2)
[2019-11-07 07:09] LABS: African American GFR (CKD) 5.6 (60.0-200.0); Non-African American GFR(CKD) 4.8 (60.0-200.0)
== END | disposition home or self-care (01) ==
LOC: LABWHC1 10:28
PROVIDERS: ATTEND Family Medicine
DX: E11.22 Type 2 diabetes mellitus with diabetic chronic kidney disease (principal); N18.6 End stage renal disease; E11.65 Type 2 diabetes mellitus with hyperglycemia; E03.9 Hypothyroidism, unspecified; R53.81 Other malaise; D63.1 Anemia in chronic kidney disease
CPT/HCPCS: 36415; 80053; 82306; 84439; 84443; 84481; 85025

== ENCOUNTER 2022-12-25 21:29 | Emergency (ER) | payer MEDICARE ==
[2022-12-25 21:35] VITALS: TEMP 98.2
--- NOTE | 2022-12-25 22:06 | XR ---
EXAMINATION TYPE: XR chest 2V DATE OF EXAM: 12/25/2022 COMPARISON: Chest CT February 04, 2022 HISTORY: Chest pain. Intermittent nausea and hypertension. TECHNIQUE: Frontal and lateral views of the chest are obtained. FINDINGS: Large bore right internal jugular catheter are redemonstrated. Anterior fusion plate in th e cervical spine again seen. Persistent mild cardiomegaly. There is no suspicious new focal air space opacity, pleural effusion, or pneumothorax seen IMPRESSION: Cardiomegaly without acute pulmonary process. No significant change from most recent CT.
[2022-12-25 22:09] LABS: Basophils % (A) 1 %; Eosinophils # (A) 0.2 k/uL (0-0.7); Eosinophils % (A) 3 %; HCT 33.4 % (34.0-46.0); HGB 10.9 gm/dL (11.4-16.0); Lymphocytes # (A) 1.2 k/uL (1.0-4.8); Lymphocytes % (A) 21 %; MCH 33.6 pg (25.0-35.0); MCHC 32.5 g/dL (31.0-37.0); MCV 103.4 fL (80.0-100.0); Macrocytosis Moderate; Monocytes # (A) 0.3 k/uL (0-1.0); Monocytes % (A) 5 %; Neutrophils # (A) 4.2 k/uL (1.3-7.7); Neutrophils % (A) 70 %; Platelet Count 213 k/uL (150-450); RBC 3.23 m/uL (3.80-5.40); RDW 15.2 % (11.5-15.5)
[2022-12-25 22:31] LABS: INR 0.9 (<1.2); Partial Thromboplastin Time 25.6 sec (22.0-30.0)
[2022-12-25 22:33] LABS: ALT 14 U/L (4-34); AST 18 U/L (14-36); African American GFR (CKD) 4 (>60 ml/min/1.73 sqM); Albumin 3.8 g/dL (3.5-5.0); Alkaline Phosphatase 84 U/L (38-126); Anion Gap 11 mmol/L; Blood Urea Nitrogen 35 mg/dL (7-17); Calcium 9.3 mg/dL (8.4-10.2); Carbon Dioxide 29 mmol/L (22-30); Chloride 98 mmol/L (98-107); Glucose 280 mg/dL (74-99); Magnesium 2.2 mg/dL (1.6-2.3); Non-African American GFR(CKD) 4 (>60 ml/min/1.73 sqM); Potassium 4.4 mmol/L (3.5-5.1); Sodium 138 mmol/L (137-145); Total Bilirubin 0.4 mg/dL (0.2-1.3); Total Protein 6.9 g/dL (6.3-8.2)
--- NOTE | 2022-12-26 00:40 | XR ---
EXAMINATION TYPE: XR KUB DATE OF EXAM: 12/26/2022 12:33 AM CLINICAL HISTORY: Constipation TECHNIQUE: Two supine KUB images of the abdomen are obtained. COMPARISON: CT abdomen and pelvis February 05, 2022. FINDINGS: Scattered gas is seen in non-distended small bowel loops. Gas and fecal material is seen in non-distended colon. No significant colonic fecal prominence. There is no visceromegaly or abnormal calcification appreciated. The lung bases are clear and the osseous structures are intact. IMPRESSION: Overall nonobstructive bowel gas pattern redemonstrated.
[2022-12-26] MEDS ORDERED: MINERAL OIL 133 ML ENEMA RECTAL STA ×2 (01:11→02:17)
--- NOTE | 2022-12-26 01:15 | ED ---
General Adult HPI - General Chief complaint: Recheck/Abnormal Lab/Rx Stated complaint: High blood pressure Time Seen by Provider: 12/25/22 23:52 Source: patient, RN notes reviewed, old records reviewed Mode of arrival: wheelchair Limitations: no limitations - History of Present Illness Initial comments: Patient is a 67-year-old female with past medical history remarkable for ESRD on hemodialysis TTS, hypertension, diabetes who presents emergency department concern for hypertension at home which has since resolved by the time I evaluated her. No associated symptoms including denying headache, chest pain, shortness of breath, shortness of breath, intermittent nausea, vomiting, but is endorsing constipation. States she has been having constipation for the last 4 days. Is to for dialysis tomorrow. Has been taking her medications and took her blood pressure medicine prior to arrival. States blood pressure home. Systolics near 200. Currently at bedside patient is systolics in the 170s. She presents for further evaluation primary complaint at this time is constipation. - Related Data Home Medications Medication Instructions Recorded Confirmed Levothyroxine Sodium [Synthroid] 75 mcg PO DAILY 10/09/16 02/05/22 Pantoprazole [Protonix] 40 mg PO DAILY 10/09/16 02/05/22 Clopidogrel [Plavix] 75 mg PO DAILY 03/11/17 02/05/22 Fluticasone Nasal [place] [Flonase 1 - 2 spr EA NOSTRIL DAILY 02/05/22 02/05/22 Nasal [place]] Insulin Aspart (For Pump) [NovoLOG 0.01 unit SQ-PUMP CONTINUOUS 02/05/2201/19 (For Pump)] Latanoprost [Latanoprost 0.005%] 1 drop BOTH EYES QID 02/05/22 02/05/22 Midodrine HCl [ProAmatine] 10 mg PO TUTHSA PRN 02/05/22 02/05/22 Propylene Glycol/Peg 400/Pf 1 drop BOTH EYES QID 02/05/22 02/05/22 [Systane 0.3-0.4% Ophth Dropperette] Rosio-Thomas 1 tab PO DAILY 02/05/22 02/05/22 Torsemide [Demadex] 40 mg PO HS 02/05/22 02/05/22 Previous Rx's Medication Instructions Recorded Calcium Acetate [PhosLo] 667 mg PO TID-W/MEALS cap 02/27/19 Amoxic-Pot Clav 875-125Mg 1 tab PO Q12HR 10 Days #20 tab 02/10/22 [Augmentin 875-125] Diphenox-Atrop 2.5-0.025 mg 1 each PO QID #12 tab 02/10/22 [Lomotil] INSULIN ASPART (NovoLOG) [NovoLOG See Protocol SQ ACHS each 02/10/22 (formulary)] Pregabalin [Lyrica] 50 mg PO HS #3 cap 02/10/22 Mineral Oil [Fleet Mineral Oil] 133 ml RECTAL ONCE #133 ml 12/26/22 polyethylene glycoL 3350 [Miralax] 17 gm PO DAILY #527 gm 12/26/22 Allergies Allergy/AdvReac Type Severity Reaction Status Date / Time gabapentin Allergy Rash/Hives Verified 02/05/22 14:31 escitalopram [From Lexapro] AdvReac Hallucinati Verified 02/05/22 14:31 ons lisinopril AdvReac Cough Verified 02/05/22 14:31 morphine AdvReac Hallucinati Verified 02/05/22 14:31 ons quetiapine [From Seroquel] AdvReac Hallucinati Verified 02/05/22 14:31 ons Review of Systems ROS Statement: Those systems with pertinent positive or pertinent negative responses have been documented in the HPI. Review of Systems: CONST: Denies fever EYES: Denies blurry vision ENT: Denies nasal congestion C/V: Denies Chest pain RESP: Denies shortness of breath GI: Endorses constipation : Denies dysuria SKIN: Denies rash. MSK: Denies joint pain. NEURO: Denies headache ROS Other: All systems not noted in ROS Statement are negative. Past Medical History Past Medical History: Diabetes Mellitus, Dialysis, GERD/Reflux, Hyperlipidemia, Hypertension, Memory Impairment, Renal Disease, Thyroid Disorder Additional Past Medical History / Comment(s): peritoneal dialysis daily over night. hx steel syndrome left hand-please use rt arm/hand for iv, blood draws. diabetic neuropathy and diabetic retinopathy, Rt BKA uses prosthesis. 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 neck cervical 4,5,6 fused. graft tie off 04/05/2017, eye laser surgery for diabetic retinopathy Past Anesthesia/Blood Transfusion Reactions: No Reported Reaction Past Psychological History: Anxiety, Depression Past Alcohol Use History: None Reported Past Drug Use History: None Reported - Past Family History Mother Family Medical History: Diabetes Mellitus, Hypertension Additional Family Medical History / Comment(s): colon ca Father Family Medical History: Myocardial Infarction ([place]) General Exam - General Exam Comments Initial Comments: General: Appears in no acute distress. HEAD: Normal with no signs of head trauma. EYES: PERRLA, EOMI, conjunctiva normal, no discharge. ENT: Hearing grossly intact, normal oropharynx. RESPIRATORY: Clear breath sounds bilaterally. No wheezes, rales, or rhonchi. C/V: Regular rate and rhythm. S1 and S2 auscultated, no edema, peripheral pulses 2+ and intact throughout ABD: Abdomen soft, nontender. Nondistended. EXT: Normal range of motion, no obvious deformity SKIN: No rashes or lesions observed on exposed skin. NEURO: Alert and oriented 4. Limitations: no limitations Course Vital Signs 12/25/22 12/25/22 12/26/22 21:30 23:40 00:00 Temperature 98.2 F Pulse Rate 80 81 78 Respiratory 18 18 18 Rate Blood Pressure 201/96 187/106 177/86 O2 Sat by Pulse 95 97 98 Oximetry 12/26/22 12/26/22 01:20 02:29 Temperature Pulse Rate 79 79 Respiratory 16 Rate Blood Pressure 176/84 160/80 O2 Sat by Pulse 97 98 Oximetry Medical Decision Making - Medical Decision Making Was pt. sent in by a medical professional or institution (, PA, NIGHT GUARD, urgent care, hospital, or longterm...) When possible be specific @ -No Did you speak to anyone other than the patient for history (EMS, parent, family, police, friend...)? What history was obtained from this source @ -No Did you review nursing and triage notes (agree or disagree)? Why? @ -I reviewed and agree with nursing and triage notes Were old charts reviewed (outside hosp., previous admission, EMS record, old EKG, old radiological studies, urgent care reports/EKG's, longterm records)? Report findings @ -No old charts were reviewed Differential Diagnosis (chest pain, altered mental status, abdominal pain women, abdominal pain men, vaginal bleeding, weakness, fever, dyspnea, syncope, headache, dizziness, GI bleed, back pain, seizure, CVA, palpatations, mental health, musculoskeletal)? @ -Constipation, hypertension, ESRD, bowel obstruction. This list is not all inclusive. EKG interpreted by me (3pts min.). @ -As above X-rays interpreted by me (1pt min.). @ -Chest x-ray revealed no obvious acute cardio, process. KUB shows no evidence of bowel obstruction. Mild constipation. CT interpreted by me (1pt min.). @ -None done U/S interpreted by me (1pt. min.). @ -None done What testing was considered but not performed or refused? (CT, X-rays, U/S, labs)? Why? @ -None What meds were considered but not given or refused? Why? @ -None Did you discuss the management of the patient with other professionals ( professionals i.e. , PA, NIGHT GUARD, lab, RT, psych nurse, perinatal social worker, shared services representative, teacher, control systems drafting officer, caseworker intake)? Give summary @ -No Was smoking cessation discussed for >3mins.? @ -No Was critical care preformed (if so, how long)? @ -No Were there social determinants of health that impacted care today? How? (Homelessness, low income, unemployed, alcoholism, drug addiction, transpo rtation, low edu. Level, literacy, decrease access to med. care, nursing home, rehab)? @ -No Was there de-escalation of care discussed even if they declined (Discuss DNR or withdrawal of care, Hospice)? DNR status @ -No What co-morbidities impacted this encounter? (DM, HTN, Smoking, COPD, CAD, Cancer, CVA, ARF, Chemo, Hep., AIDS, mental health diagnosis, sleep apnea, morbid obesity)? @ -None Was patient admitted / discharged? Hospital course, mention meds given and route, prescriptions, significant lab abnormalities, going to OR and other pertinent info. @ -Based on the patient's presentation and physical exam, I do believe she is likely expressing constipation. Patient's blood pressure is improved at this time and is having asymptomatic hypertension with systolics at 177 and diastolic of 86. We'll continue to monitor the patient's blood pressure. The patient was in triage, workup was started. Labs are remarkable for elevated BUN/creatinine the setting of ESRD on hemodialysis. Patient has chronic anemia. Troponin undetectable. Remainder of the labs within normal limits. EKG shows no signs of acute ischemia. Chest x-ray shows no obvious acute cardiopulmonary process. At this time we will add on a KUB. She was in agreement with this plan. KUB s hows no evidence of bowel obstruction. Patient does have some signs of constipation. Vital signs within acceptable limits at this time still. I discussed results with the patient. She wants to try an enema to see if it helps with her bowel movements and constipation which I believe is reasonable. She'll then be discharged home. She was in agreement with this plan. No other symptoms at this time. Enema seemed to have worked some. She'll be discharged home with an additional enema at her request. Strict return precautions discussed. I will provide the patient with a prescription for enema. I instructed the patient to follow up with their PCP in the next 1-3 days . I explained that the patient should return to the emergency department if they experience any worsening symptoms. Strict return precautions were discussed with the patient. The patient expressed understanding of these instructions. I answered all questions that the patient had. The patient was discharged home in good condition with their prescriptions and follow up information. Undiagnosed new problem with uncertain prognosis? @ -No Drug Therapy requiring intensive monitoring for toxicity (Heparin, Nitro, Insulin, Cardizem)? @ -No Were any procedures done? @ -No Diagnosis/symptom? @ -Constipation Acute, or Chronic, or Acute on Chronic? @ -Acute Uncomplicated (without systemic symptoms) or Complicated (systemic symptoms)? @ -Uncomplicated Side effects of treatment? @ -No Exacerbation, Progression, or Severe Exacerbation? @ -No Poses a threat to life or bodily function? How? (Chest pain, USA, NC, pneumonia, PE, COPD, DKA, ARF, appy, cholecystitis, CVA, Diverticulitis, Homicidal, Suicidal, threat to staff... and all critical care pts) @ -No Diagnosis/symptom? @ -Asymptomatic hypertension Acute, or Chronic, or Acute on Chronic? @ -Acute Uncomplicated (without systemic symptoms) or Complicated (systemic symptoms)? @ -Uncomplicated Side effects of treatment? @ -none Exacerbation, Progression, or Severe Exacerbation] @ -no Poses a threat to life or bodily function? @ -no - Lab Data Result diagrams: 12/25/22 21:42 12/25/22 21:42 Lab Results 12/25/22 12/25/22 12/25/22 Range/Units 21:42 21:42 21:42 WBC 6.0 (3.8-10.6) k/uL RBC 3.23 L (3.80-5.40) m/uL Hgb 10.9 L (11.4-16.0) gm/dL Hct 33.4 L (34.0-46.0) % MCV 103.4 H (80.0-100.0) fL MCH 33.6 (25.0-35.0) pg MCHC 32.5 (31.0-37.0) g/dL RDW 15.2 (11.5-15.5) % Plt Count 213 (150-450) k/uL MPV 10.0 Neutrophils % 70 % Lymphocytes % 21 % Monocytes % 5 % Eosinophils % 3 % Basophils % 1 % Neutrophils # 4.2 (1.3-7.7) k/uL Lymphocytes # 1.2 (1.0-4.8) k/uL Monocytes # 0.3 (0-1.0) k/uL Eosinophils # 0.2 (0-0.7) k/uL Basophils # 0.0 (0-0.2) k/uL Macrocytosis Moderate PT 10.0 (9.0-12.0) sec INR 0.9 (<1.2) APTT 25.6 (22.0-30.0) sec Sodium 138 (137-145) mmol/L Potassium 4.4 (3.5-5.1) mmol/L Chloride 98 (98-107) mmol/L Carbon Dioxide 29 (22-30) mmol/L Anion Gap 11 mmol/L BUN 35 H (7-17) mg/dL Creatinine 9.52 H* (0.52-1.04) mg/dL Est GFR (CKD-EPI)AfAm 4 (>60 ml/min/1.73 sqM) Est GFR (CKD-EPI)NonAf 4 (>60 ml/min/1.73 sqM) Glucose 280 H (74-99) mg/dL Calcium 9.3 (8.4-10.2) mg/dL Magnesium 2.2 (1.6-2.3) mg/dL Total Bilirubin 0.4 (0.2-1.3) mg/dL AST 18 (14-36) U/L ALT 14 (4-34) U/L Alkaline Phosphatase 84 (38-126) U/L Troponin I (0.000-0.034) ng/mL Total Protein 6.9 (6.3-8.2) g/dL Albumin 3.8 (3.5-5.0) g/dL 12/25/22 Range/Units 21:42 WBC (3.8-10.6) k/uL RBC (3.80-5.40) m/uL Hgb (11.4-16.0) gm/dL Hct (34.0-46.0) % MCV (80.0-100.0) fL MCH (25.0-35.0) pg MCHC (31.0-37.0) g/dL RDW (11.5-15.5) % Plt Count (150-450) k/uL MPV Neutrophils % % Lymphocytes % % Monocytes % % Eosinophils % % Basophils % % Neutrophils # (1.3-7.7) k/uL Lymphocytes # (1.0-4.8) k/uL Monocytes # (0-1.0) k/uL Eosinophils # (0-0.7) k/uL Basophils # (0-0.2) k/uL Macrocytosis PT (9.0-12.0) sec INR (<1.2) APTT (22.0-30.0) sec Sodium (137-145) mmol/L Potassium (3.5-5.1) mmol/L Chloride (98-107) mmol/L Carbon Dioxide (22-30) mmol/L Anion Gap mmol/L BUN (7-17) mg/dL Creatinine (0.52-1.04) mg/dL Est GFR (CKD-EPI)AfAm (>60 ml/min/1.73 sqM) Est GFR (CKD-EPI)NonAf (>60 ml/min/1.73 sqM) Glucose (74-99) mg/dL Calcium (8.4-10.2) mg/dL Magnesium (1.6-2.3) mg/dL Total Bilirubin (0.2-1.3) mg/dL AST (14-36) U/L ALT (4-34) U/L Alkaline Phosphatase (38-126) U/L Troponin I <0.012 (0.000-0.034) ng/mL Total Protein (6.3-8.2) g/dL Albumin (3.5-5.0) g/dL - EKG Data -: EKG Interpreted by Me EKG Comments: 12-lead Electrocardiogram Interpretation Note EKG was reviewed and interpreted by myself. 12-lead ECG performed at 2142 is interpreted by me as revealing normal sinus rhythm at a rate of 78 beats per minute. Ehrhardt is normal. SC interval is 232 ms, QRS duration is 90 ms, QTc is 420 ms.. There were no ST or T wave abnormalities to suggest myocardial ischemia or injury. R wave progression across the precordium was satisfactory. By my interpretation this EKG is non-diagnostic for acute ischemia. Disposition Clinical Impression: Constipation, Hypertension Disposition: HOME SELF-CARE Condition: Good Instructions (If sedation given, give patient instructions): Constipation (ED) Prescriptions: Mineral Oil [Fleet Mineral Oil] 133 ml RECTAL ONCE #133 ml polyethylene glycoL 3350 [Miralax] 17 gm PO DAILY #527 gm Is patient prescribed a controlled substance at d/c from ED?: No Referrals: Tino Aquino MD [Primary Care Provider] - 1-2 days Time of Disposition: 01:10
[2022-12-26 01:21] VITALS: PULSE 79
[2022-12-26 02:31] VITALS: BP 160/80; RESP 16
== END 2022-12-26 02:30 | disposition home or self-care (01) ==
LOC: EC 21:29
DX: K59.00 Constipation, unspecified (principal); I12.0 Hypertensive chronic kidney disease with stage 5 chronic kidney disease or end stage renal disease; E78.5 Hyperlipidemia, unspecified; E07.9 Disorder of thyroid, unspecified; E11.22 Type 2 diabetes mellitus with diabetic chronic kidney disease; N18.6 End stage renal disease; K21.9 Gastro-esophageal reflux disease without esophagitis; Z99.2 Dependence on renal dialysis; Z86.59 Personal history of other mental and behavioral disorders; Z79.899 Other long term (current) drug therapy; Z79.02 Long term (current) use of antithrombotics/antiplatelets; Z79.890 Hormone replacement therapy; Z79.4 Long term (current) use of insulin; Z88.5 Allergy status to narcotic agent; Z88.8 Allergy status to other drugs, medicaments and biological substances
CPT/HCPCS: 36415; 71046; 74018; 80053; 83735; 84484; 85025; 85610; 85730; 93005; 99284

== ENCOUNTER → 2023-07-30 | Outpatient (CLI) | payer MEDICARE ==
[2023-07-30 17:23] LABS: Chol/HDL Ratio 5.96 Ratio; LDL Cholesterol,Calculated 131.3 mg/dL (0.0-131.0)
[2023-07-30 17:26] LABS: ALT 8 U/L (8-44); AST 10 U/L (13-35); Albumin 3.8 g/dL (3.8-4.9); Albumin/Globulin Ratio 1.41 Ratio (1.60-3.17); Alkaline Phosphatase 64 U/L (41-126); BUN/Creat Ratio 4.07 Ratio (12.00-20.00); Blood Urea Nitrogen 36.2 mg/dL (9.0-27.0); Calcium 9.5 mg/dL (8.7-10.3); Chloride 102 mmol/L (96-109); Globulin 2.7 g/dL (1.6-3.3); Glucose 80 mg/dL (70-110); Potassium 4.6 mmol/L (3.5-5.5); Sodium 145 mmol/L (135-145); Total Bilirubin 0.3 mg/dL (0.3-1.2); Total Protein 6.5 g/dL (6.2-8.2)
[2023-07-30 21:45] LABS: Urine Creatinine 36.7 mg/dL (28.0-217.0)
== END | disposition home or self-care (01) ==
LOC: LABWHC1 08:32
PROVIDERS: ATTEND Internal Medicine Endocrinology, Diabetes & Metabolism
DX: E11.65 Type 2 diabetes mellitus with hyperglycemia (principal)
CPT/HCPCS: 36415; 80053; 80061; 82043; 82570; 83036; 84443

== ENCOUNTER 2023-08-20 03:50 | Emergency (ER) | payer MEDICARE ==
--- NOTE | 2023-08-20 04:14 | ED ---
General Adult HPI - General Chief complaint: Dental/Oral Stated complaint: Dental Pain Time Seen by Provider: 08/20/23 03:55 Source: patient, EMS, RN notes reviewed, old records reviewed Mode of arrival: EMS Limitations: no limitations - History of Present Illness Initial comments: Is a 67-year-old female presents emergency department complaining of dental pain. States has been present since last Sunday. Is located in the lower tooth posteriorly on the left side. No fevers or chills. No issue with tolerating oral secretions. No difficulty in breathing. Has not yet seen a dentist. Presents for further evaluation. Denies any fevers, chills, facial pain with it. - Related Data Home Medications Medication Instructions Recorded Confirmed Levothyroxine Sodium [Synthroid] 75 mcg PO DAILY 10/09/16 02/05/22 Pantoprazole [Protonix] 40 mg PO DAILY 10/09/16 02/05/22 Clopidogrel [Plavix] 75 mg PO DAILY 03/11/17 02/05/22 Fluticasone Nasal [place] [Flonase 1 - 2 spr EA NOSTRIL DAILY 02/05/22 02/05/22 Nasal [place]] Insulin Aspart (For Pump) [NovoLOG 0.01 unit SQ-PUMP CONTINUOUS 02/05/22 02/05/22 (For Pump)] Latanoprost [Latanoprost 0.005%] 1 drop BOTH EYES QID 02/05/22 02/05/22 Midodrine HCl [ProAmatine] 10 mg PO TUTHSA PRN 02/05/22 02/05/22 Propylene Glycol/Peg 400/Pf 1 drop BOTH EYES QID 02/05/22 02/05/22 [Systane 0.3-0.4% Ophth Dropperette] Rosio-Thomas 1 tab PO DAILY 02/05/22 02/05/22 Torsemide [Demadex] 40 mg PO HS 02/05/22 02/05/22 Previous Rx's Medication Instructions Recorded Calcium Acetate [PhosLo] 667 mg PO TID-W/MEALS cap 02/27/19 Amoxic-Pot Clav 875-125Mg 1 tab PO Q12HR 10 Days #20 tab 02/10/22 [Augmentin 875-125] Diphenox-Atrop 2.5-0.025 mg 1 each PO QID #12 tab 02/10/22 [Lomotil] INSULIN ASPART (NovoLOG) [NovoLOG See Protocol SQ ACHS each 02/10/22 (formulary)] Pregabalin [Lyrica] 50 mg PO HS #3 cap 02/10/22 Mineral Oil [Fleet Mineral Oil] 133 ml RECTAL ONCE #133 ml 12/26/22 polyethylene glycoL 3350 [Miralax] 17 gm PO DAILY #527 gm 12/26/22 Amoxic-Pot Clav 875-125Mg 1 tab PO Q12HR 7 Days #14 tab 08/20/23 [Augmentin 875-125] Allergies Allergy/AdvReac Type Severity Reaction Status Date / Time gabapentin Allergy Rash/Hives Verified 08/20/23 03:57 escitalopram [From Lexapro] AdvReac Hallucinati Verified 08/20/23 03:57 ons lisinopril AdvReac Cough Verified 08/20/23 03:57 morphine AdvReac Hallucinati Verified 08/20/23 03:57 ons quetiapine [From Seroquel] AdvReac Hallucinati Verified 08/20/23 03:57 ons Review of Systems ROS Statement: Those systems with pertinent positive or pertinent negative responses have been documented in the HPI. Review of Systems: CONST: Denies fever EYES: Denies blurry vision ENT: Denies nasal congestion. Endorses tooth ache C/V: Denies Chest pain RESP: Denies shortness of breath GI: Denies abdominal pain : Denies dysuria SKIN: Denies rash. MSK: Denies joint pain. NEURO: Denies headache ROS Other: All systems not noted in ROS Statement are negative. Past Medical History Past Medical History: Diabetes Mellitus, Dialysis, GERD/Reflux, Hyperlipidemia, Hypertension, Memory Impairment, Renal Disease, Thyroid Disorder Additional Past Medical History / Comment(s): peritoneal dialysis daily over night. hx steel syndrome left hand-please use rt arm/hand for iv, blood draws. diabetic neuropathy and diabetic retinopathy, Rt BKA uses prosthesis. 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 neck cervical 4,5,6 fused. graft tie off 04/05/2017, eye laser surgery for diabetic retinopathy Past Anesthesia/Blood Transfusion Reactions: No Reported Reaction Past Psychological History: Anxiety, Depression Past Alcohol Use History: None Reported Past Drug Use History: None Reported - Past Family History Mother Family Medical History: Diabetes Mellitus, Hypertension Additional Family Medical History / Comment(s): colon ca Father Family Medical History: Myocardial Infarction ([place]) General Exam - General Exam Comments Initial Comments: General: Appears in no acute distress. HEAD: Normal with no signs of head trauma. EYES: EOMI. ENT: Hearing grossly intact. No obvious dental infection or dental injury. Gumline normal. Tenderness to palpation of the posterior most left lower molar. No sinus tenderness to palpation. Normal movement of the jaw. Posterior oropharynx within normal limits. Tongue is not edematous. Uvula is midline. RESPIRATORY: No respiratory distress. C/V: Regular rate and rhythm. ABD: Abdomen is nondistended. EXT: No obvious deformity. SKIN: No rashes or lesions observed on exposed skin. NEURO: Alert and oriented. Limitations: no limitations Course Vital Signs 08/20/23 03:55 Temperature 97.8 F Pulse Rate 79 Respiratory 18 Rate Blood Pressure 177/92 O2 Sat by Pulse 100 Oximetry Medical Decision Making - Medical Decision Making Was pt. sent in by a medical professional or institution (, PA, HYDROPRESS OPERATOR, urgent care, hospital, or senior living...) When possible be specific @ -No Did you speak to anyone other than the patient for history (EMS, parent, family, police, friend...)? What history was obtained from this source @ -No Did you review nursing and triage notes (agree or disagree)? Why? @ -I reviewed and agree with nursing and triage notes Were old charts reviewed (outside hosp., previous admission, EMS record, old EKG, old radiological studies, urgent care reports/EKG's, senior living records)? Report findings @ -No old charts were reviewed Differential Diagnosis (chest pain, altered mental status, abdominal pain women, abdominal pain men, vaginal bleeding, weakness, fever, dyspnea, syncope, headache, dizziness, GI bleed, back pain, seizure, CVA, palpatations, mental health, musculoskeletal)? @ -Tooth ache, cavity, dental abscess. This list is not all inclusive. EKG interpreted by me (3pts min.). @ -None done X-rays interpreted by me (1pt min.). @ -None done CT interpreted by me (1pt min.). @ -None done U/S interpreted by me (1pt. min.). @ -None done What testing was considered but not performed or refused? (CT, X-rays, U/S, labs)? Why? @ -None What meds were considered but not given or refused? Why? @ -None Did you discuss the management of the patient with other professionals (professionals i.e. DrMagda, PA, HYDROPRESS OPERATOR, lab, RT, psych nurse, protective services social worker, roll on worker, teacher, chief information security officer, family independence case manager)? Give summary @ -No Was smoking cessation discussed for >3mins.? @ -No Was critical care preformed (if so, how long)? @ -No Were there social determinants of health that impacted care today? How? (Homelessness, low income, unemployed, alcoholism, drug addiction, tr ansportation, low edu. Level, literacy, decrease access to med. care, [facility], rehab)? @ -No Was there de-escalation of care discussed even if they declined (Discuss DNR or withdrawal of care, Hospice)? DNR status @ -No What co-morbidities impacted this encounter? (DM, HTN, Smoking, COPD, CAD, Cancer, CVA, ARF, Chemo, Hep., AIDS, mental health diagnosis, sleep apnea, morbid obesity)? @ -None Was patient admitted / discharged? Hospital course, mention meds given and route, prescriptions, significant lab abnormalities, going to OR and other pertinent info. @ -Patient presents with dental pain. Exam is relatively unremarkable other than pain. No obvious source of infection. No evidence of Anjel's angina. Tolerating oral secretions and breathing without issue. No stridor. Discussed with the patient that she has a tooth ache of unknown etiology. Could be related to a cavity but I recommended follow-up with dentistry. She will be empirically placed on antibiotics, given a dose here as well as steroids. She will be given a starter pack of pain medications. Patient was in agreement this plan. Vital signs are within acceptable limits. I will provide the patient with a prescription for Augmentin. I instructed the patient to follow up with their PCP in the next 1-3 days. I provided contact information for follow up with dentistry. I explained that the patient should return to the emergency department if they experience any worsening symptoms. Strict return precautions were discussed with the patient. The patient expressed understanding of these instructions. I answered all questions that the patient had. The patient was discharged home in good condition with their prescriptions and follow up information. Undiagnosed new problem with uncertain prognosis? @ -No Drug Therapy requiring intensive monitoring for toxicity (Heparin, Nitro, Insulin, Cardizem)? @ -No Were any procedures done? @ -No Diagnosis/symptom? @ -Dental pain Acute, or Chronic, or Acute on Chronic? @ -Acute Uncomplicated (without systemic symptoms) or Complicated (systemic symptoms)? @ -Uncomplicated Side effects of treatment? @ -No Exacerbation, Progression, or Severe Exacerbation? @ -No Poses a threat to life or bodily function? How? (Chest pain, [place], [place], pneumonia, PE, COPD, DKA, ARF, appy, cholecystitis, CVA, Diverticulitis, Homicidal, Suicidal, threat to staff... and all critical care pts) @ -No Disposition Clinical Impression: Pain, dental Disposition: HOME SELF-CARE Condition: Good Instructions (If sedation given, give patient instructions): Toothache (ED) Prescriptions: Amoxic-Pot Clav 875-125Mg [Augmentin 875-125] 1 tab PO Q12HR 7 Days #14 tab Is patient prescribed a controlled substance at d/c from ED?: No Referrals: Tino Aquino MD [Primary Care Provider] - 1-2 days Jani Hendrix DDS [STAFF PHYSICIAN] - 1-2 days Time of Disposition: 04:08
[2023-08-20] MEDS: AMOXIC-POT CLAV 875-125MG 1 EACH TAB PO STA (04:15)
[2023-08-20] MEDS: Acetaminophen-Codeine 300-30mg TAB PO STA (04:15)
[2023-08-20] MEDS: dexAMETHasone 4 MG TAB PO STA (04:15)
[2023-08-20] MEDS: ACET/COD 300 MG/30 MG STARTER PACK 6 TAB BTL PO STA (04:18)
[2023-08-20 05:30] VITALS: BP 177/92; PULSE 79; RESP 18; TEMP 97.8
== END 2023-08-20 04:20 | disposition home or self-care (01) ==
LOC: EC 03:50
DX: K08.89 Other specified disorders of teeth and supporting structures (principal); Z88.5 Allergy status to narcotic agent; Z88.8 Allergy status to other drugs, medicaments and biological substances
CPT/HCPCS: 99283; J8540

== ENCOUNTER 2023-08-23 20:58 | Emergency (ER) | payer MEDICARE ==
--- NOTE | 2023-08-23 22:08 | ED ---
General Adult HPI - General Source: EMS, RN notes reviewed Mode of arrival: EMS Limitations: no limitations <Lavonne Hilliard - Last Filed: 08/23/23 22:06> <Margaret Murphy - Last Filed: 08/24/23 19:26> - General Chief complaint: Recheck/Abnormal Lab/Rx Stated complaint: Hypertension Time Seen by Provider: 08/23/23 21:50 - History of Present Illness Initial comments: Quick [id number] female with history of hypertension on dialysis presenting to the ER with chief complaint of high blood pressure. States when she got home from dialysis today her blood pressure was in the high 180s over 100 and admits she was having some chest discomfort that felt like heartburn. Denies current chest pain, vision changes, headache, shortness of breath. Blood pressure is currently noted to be 188/103. Patient takes metoprolol daily for hypertension. (Lavonne Hilliard) 67-year-old female currently on dialysis presenting with chief complaint of elevated blood pressure. Patient has history of hypertension, she currently takes Lopressor at home. Patient had dialysis today, she receives dialysis on Sunday, , and Sunday. When she got home her blood pressure was in the 180s over 100 range. Patient states that she felt like she was having a bit of heartburn at that time. She denies any chest pain, difficulty breathing, abdominal pain, nausea, vomiting, headache, vision changes, dizziness. (Margaret Murphy) - Related Data Home Medications Medication Instructions Recorded Confirmed Levothyroxine Sodium [Synthroid] 75 mcg PO DAILY 10/09/16 02/05/22 Pantoprazole [Protonix] 40 mg PO DAILY 10/09/16 02/05/22 Clopidogrel [Plavix] 75 mg PO DAILY 03/11/17 02/05/22 Fluticasone Nasal [place] [Flonase 1 - 2 spr EA NOSTRIL DAILY 02/05/22 02/05/22 Nasal [place]] Insulin Aspart (For Pump) [NovoLOG 0.01 unit SQ-PUMP CONTINUOUS 02/05/22 02/05/22 (For Pump)] Latanoprost [Latanoprost 0.005%] 1 drop BOTH EYES QID 02/05/22 02/05/22 Midodrine HCl [ProAmatine] 10 mg PO TUTHSA PRN 02/05/22 02/05/22 Propylene Glycol/Peg 400/Pf 1 drop BOTH EYES QID 02/05/22 02/05/22 [Systane 0.3-0.4% Ophth [place]] Rosio-Thomas 1 tab PO DAILY 02/05/22 02/05/22 Torsemide [Demadex] 40 mg PO HS 02/05/22 02/05/22 Previous Rx's Medication Instructions Recorded Calcium Acetate [PhosLo] 667 mg PO TID-W/MEALS cap 02/27/19 Amoxic-Pot Clav 875-125Mg 1 tab PO Q12HR 10 Days #20 tab 02/10/22 [Augmentin 875-125] Diphenox-Atrop 2.5-0.025 mg 1 each PO QID #12 tab 02/10/22 [Lomotil] INSULIN ASPART (NovoLOG) [NovoLOG See Protocol SQ ACHS each 02/10/22 (formulary)] Pregabalin [Lyrica] 50 mg PO HS #3 cap 02/10/22 Mineral Oil [Fleet Mineral Oil] 133 ml RECTAL ONCE #133 ml 12/26/22 polyethylene glycoL 3350 [Miralax] 17 gm PO DAILY #527 gm 12/26/22 Amoxic-Pot Clav 875-125Mg 1 tab PO Q12HR 7 Days #14 tab 08/20/23 [Augmentin 875-125] Cephalexin [Keflex] 500 mg PO Q12HR 7 Days #14 cap 08/24/23 Allergies Allergy/AdvReac Type Severity Reaction Status Date / Time gabapentin Allergy Rash/Hives Verified 08/23/23 21:11 escitalopram [From Lexapro] AdvReac Hallucinati Verified 08/23/23 21:11 ons lisinopril AdvReac Cough Verified 08/23/23 21:11 morphine AdvReac Hallucinati Verified 08/23/23 21:11 ons quetiapine [From Seroquel] AdvReac Hallucinati Verified 08/23/23 21:11 ons Review of Systems ROS Other: All systems not noted in ROS Statement are negative. <Lavonne Hilliard - Last Filed: 08/23/23 22:06> ROS Other: All systems not noted in ROS Statement are negative. <Margaret Murphy - Last Filed: 08/24/23 19:26> ROS Statement: Those systems with pertinent positive or pertinent negative responses have been documented in the HPI. Past Medical History Past Medical History: Diabetes Mellitus, Dialysis, GERD/Reflux, Hyperlipidemia, Hypertension, Memory Impairment, Renal Disease, Thyroid Disorder Additional Past Medical History / Comment(s): peritoneal dialysis daily over night. hx steel syndrome left hand-please use rt arm/hand for iv, blood draws. diabetic neuropathy and diabetic retinopathy, Rt BKA uses prosthesis. 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 neck cervical 4,5,6 fused. graft tie off 04/05/2017, eye laser surgery for diabetic retinopathy Past Anesthesia/Blood Transfusion Reactions: No Reported Reaction Past Psychological History: Anxiety, Depression Smoking Status: Never smoker Past Alcohol Use History: None Reported Past Drug Use History: None Reported - Past Family History Mother Family Medical History: Diabetes Mellitus, Hypertension Additional Family Medical History / Comment(s): colon ca Father Family Medical History: Myocardial Infarction (MS) <Lavonne Hilliard - Last Filed: 08/23/23 22:06> General Exam Limitations: no limitations <Lavonne Hilliard - Last Filed: 08/23/23 22:06> Limitations: no limitations General appearance: alert, in no apparent distress Head exam: Present: atraumatic, normocephalic Eye exam: Present: normal appearance, EOMI Neck exam: Present: normal inspection. Absent: meningismus Respiratory exam: Present: normal lung sounds bilaterally. Absent: respiratory distress, wheezes, rales, rhonchi, stridor Cardiovascular Exam: Present: regular rate, normal rhythm, normal heart sounds. Absent: systolic murmur, diastolic murmur, rubs, gallop, clicks Neurological exam: Present: alert, oriented X3 Psychiatric exam: Present: normal affect, normal mood Skin exam: Present: warm, dry <Margaret Murphy - Last Filed: 08/24/23 19:26> - General Exam Comments Initial Comments: Visual Physical Exam Vital signs reviewed General: Well-appearing, nontoxic, no acute distress. Head: Normocephalic, atraumatic Eyes: PERRLA, EOMI ENT: Airway patent Chest: Nonlabored breathing Skin: No visual rash, normal skin tone Neuro: Alert and oriented 3 Musculoskeletal: No gross abnormalities (Lavonne Hilliard) Course Vital Signs 08/23/23 08/24/23 08/24/23 21:08 01:30 02:38 Temperature 97.9 F 98 F Pulse Rate 82 84 72 Respiratory 18 16 Rate Blood Pressure 188/103 189/83 161/68 O2 Sat by Pulse 94 L 98 Oximetry 08/24/23 03:57 Temperature 98.1 F Pulse Rate 78 Respiratory 16 Rate Blood Pressure 181/85 O2 Sat by Pulse 96 Oximetry Medical Decision Making <Lavonne Hilliard - Last Filed: 08/23/23 22:06> - Lab Data Result diagrams: 08/23/23 22:29 08/23/23 22:29 <Margaret Murphy - Last Filed: 08/24/23 19:26> - Medical Decision Making I completed the quick note portion of this chart signed PAJerome (Lavonne Hilliard) Was pt. sent in by a medical professional or institution (, SANDER, RADIO TECHNICIAN, urgent care, hospital, or [facility]...) When possible be specific @ -No Did you speak to anyone other than the patient for history (EMS, parent, family, police, friend...)? What history was obtained from this source @ -No Did you review nursing and triage notes (agree or disagree)? Why? @ -I reviewed and agree with nursing and triage notes Were old charts reviewed (outside hosp., previous admission, EMS record, old EKG, old radiological studies, urgent care reports/EKG's, [facility] records)? Report findings @ -No old charts were reviewed Differential Diagnosis (chest pain, altered mental status, abdominal pain women, abdominal pain men, vaginal bleeding, weakness, fever, dyspnea, syncope, headache, dizziness, GI bleed, back pain, seizure, CVA, palpatations, mental health, musculoskeletal)? @ -Differential includes renal disease, infectious process, this is not an all- inclusive list EKG interpreted by me (3pts min.). @ -EKG shows sinus rhythm with first-degree AV block. Ventricular rate 84. NC interval 253. QRS 91. QT 406. QTc 447. X-rays interpreted by me (1pt min.). @ -Chest x-ray shows no acute findings in the chest CT interpreted by me (1pt min.). @ -None done U/S interpreted by me (1pt. min.). @ -None done What testing was considered but not performed or refused? (CT, X-rays, U/S, labs)? Why? @ -None What meds were considered but not given or refused? Why? @ -None Did you discuss the management of the patient with other professionals (professionals i.e. DrMagda, PA, RADIO TECHNICIAN, lab, RT, psych nurse, certified social workers in health care, heel seam rubber, teacher, regulatory compliance officer, bilingual case manager)? Give summary @ -No Was smoking cessation discussed for >3mins.? @ -No Was critical care preformed (if so, how long)? @ -No Were there social determinants of health that impacted care today? How? (Homelessness, low income, unemployed, alcoholism, drug addiction, transportation, low edu. Level, literacy, decrease access to med. care, correction, rehab)? @ -No Was there de-escalation of care discussed even if they declined (Discuss DNR or withdrawal of care, Hospice)? DNR status @ -No What co-morbidities impacted this encounter? (DM, HTN, Smoking, COPD, CAD, Cancer, CVA, ARF, Chemo, Hep., AIDS, mental health diagnosis, sleep apnea, morbid obesity)? @ -None Was patient admitted / discharged? Hospital course, mention meds given and route, prescriptions, significant lab abnormalities, going to OR and other pertinent info. @ -67-year-old female presenting with chief complaint of elevated blood pressure. Patient is currently on dialysis, last received dialysis earlier today. workup is initiated by triage. Patient is later brought back to a room where history and physical exam are conducted. Her CBC CMP and troponin require no action at this time. Urine is positive for UTI. Chest x-ray shows no acute process and EKG shows sinus rhythm. Patient is given a dose of her metoprolol 25 mg, this brings down her blood pressure from 189/83 to 161/68. The patient feels well and is having no symptoms at this time. She is given Rocephin 1 g for UTI and started on Keflex at home. She is instructed to keep taking her blood pressure medication and follow-up with her PCP. Discharged home. Follow- up with PCP. Report back to ER with any new or worsening symptoms. Discussed return parameters and answered all questions. Patient conveyed verbal understanding and agreed to the plan. I discussed this case in detail with my attending Dr. Johnson Undiagnosed new problem with uncertain prognosis? @ -No Drug Therapy requiring intensive monitoring for toxicity (Heparin, Nitro, Insulin, Cardizem)? @ -No Were any procedures done? @ -No Diagnosis/symptom? @ -Hypertension Acute, or Chronic, or Acute on Chronic? @ -Acute on chronic Uncomplicated (without systemic symptoms) or Complicated (systemic symptoms)? @ -Uncomplicated Side effects of treatment? @ -No Exacerbation, Progression, or Severe Exacerbation? @ -No Poses a threat to life or bodily function? How? (Chest pain, USA, MS, pneumonia, PE, COPD, DKA, ARF, appy, cholecystitis, CVA, Diverticulitis, Homicidal, Suicidal, threat to staff... and all critical care pts) @ -No immediate threat Diagnosis/symptom? @UTI Acute, or Chronic, or Acute on Chronic? @Acute Uncomplicated (without systemic symptoms) or Complicated (systemic symptoms)? @Uncomplicated Side effects of treatment? @None Exacerbation, Progression, or Severe Exacerbation] @No Poses a threat to life or bodily function? @Some threat but at this time there is no immediate threat (Margaret Murphy) - Lab Data Lab Results 08/23/23 08/23/23 08/23/23 Range/Units 22:29 22:29 22:29 WBC 4.2 (3.8-10.6) k/uL RBC 3.61 L (3.80-5.40) m/uL Hgb 11.9 (11.4-16.0) gm/dL Hct 37.8 (34.0-46.0) % MCV 104.7 H (80.0-100.0) fL MCH 33.1 (25.0-35.0) pg MCHC 31.6 (31.0-37.0) g/dL RDW 15.6 H (11.5-15.5) % Plt Count 166 (150-450) k/uL MPV 10.2 Neutrophils % 65 % Lymphocytes % 20 % Monocytes % 7 % Eosinophils % 4 % Basophils % 1 % Neutrophils # 2.7 (1.3-7.7) k/uL Lymphocytes # 0.9 L (1.0-4.8) k/uL Monocytes # 0.3 (0-1.0) k/uL Eosinophils # 0.2 (0-0.7) k/uL Basophils # 0.0 (0-0.2) k/uL Hypochromasia Slight Macrocytosis Moderate Sodium 134 L (137-145) mmol/L Potassium 5.3 H (3.5-5.1) mmol/L Chloride 96 L (98-107) mmol/L Carbon Dioxide 32 H (22-30) mmol/L Anion Gap 6 mmol/L BUN 20 H (7-17) mg/dL Creatinine 7.08 H* (0.52-1.04) mg/dL Est GFR (CKD-EPI)AfAm 6 (>60 ml/min/1.73 sqM) Est GFR (CKD-EPI)NonAf 5 (>60 ml/min/1.73 sqM) Glucose 148 H (74-99) mg/dL Calcium 8.0 L (8.4-10.2) mg/dL Total Bilirubin 0.8 (0.2-1.3) mg/dL AST 33 (14-36) U/L ALT 14 (4-34) U/L Alkaline Phosphatase 67 (38-126) U/L Troponin I 0.012 (0.000-0.034) ng/mL Total Protein 6.5 (6.3-8.2) g/dL Albumin 3.5 (3.5-5.0) g/dL Urine Color Urine Appearance (Clear) Urine pH (5.0-8.0) Ur Specific [place] (1.001-1.035) Urine Protein (Negative) Urine Glucose (UA) (Negative) Urine Ketones (Negative) Urine Blood (Negative) Urine Nitrite (Negative) Urine Bilirubin (Negative) Urine Urobilinogen (<2.0) mg/dL Ur Leukocyte Esterase (Negative) Urine RBC (0-5) /hpf Urine WBC (0-5) /hpf Urine WBC Clumps (None) /hpf Ur Squamous Epith Cells (0-4) /hpf Urine Bacteria (None) /hpf 08/24/23 Range/Units 02:00 WBC (3.8-10.6) k/uL RBC (3.80-5.40) m/uL Hgb (11.4-16.0) gm/dL Hct (34.0-46.0) % MCV (80.0-100.0) fL MCH (25.0-35.0) pg MCHC (31.0-37.0) g/dL RDW (11.5-15.5) % Plt Count (150-450) k/uL MPV Neutrophils % % Lymphocytes % % Monocytes % % Eosinophils % % Basophils % % Neutrophils # (1.3-7.7) k/uL Lymphocytes # (1.0-4.8) k/uL Monocytes # (0-1.0) k/uL Eosinophils # (0-0.7) k/uL Basophils # (0-0.2) k/uL Hypochromasia Macrocytosis Sodium (137-145) mmol/L Potassium (3.5-5.1) mmol/L Chloride (98-107) mmol/L Carbon Dioxide (22-30) mmol/L Anion Gap mmol/L BUN (7-17) mg/dL Creatinine (0.52-1.04) mg/dL Est GFR (CKD-EPI)AfAm (>60 ml/min/1.73 sqM) Est GFR (CKD-EPI)NonAf (>60 ml/min/1.73 sqM) Glucose (74-99) mg/dL Calcium (8.4-10.2) mg/dL Total Bilirubin (0.2-1.3) mg/dL AST (14-36) U/L ALT (4-34) U/L Alkaline Phosphatase (38-126) U/L Troponin I (0.000-0.034) ng/mL Total Protein (6.3-8.2) g/dL Albumin (3.5-5.0) g/dL Urine Color Light Yellow Urine Appearance Turbid H (Clear) Urine pH 7.5 (5.0-8.0) Ur Specific [place] 1.016 (1.001-1.035) Urine Protein 3+ H (Negative) Urine Glucose (UA) Trace H (Negative) Urine Ketones Negative (Negative) Urine Blood Moderate H (Negative) Urine Nitrite Negative (Negative) Urine Bilirubin Negative (Negative) Urine Urobilinogen <2.0 (<2.0) mg/dL Ur Leukocyte Esterase Large H (Negative) Urine RBC 18 H (0-5) /hpf Urine WBC >182 H (0-5) /hpf Urine WBC Clumps Many H (None) /hpf Ur Squamous Epith Cells 15 H (0-4) /hpf Urine Bacteria Occasional H (None) /hpf Disposition <Lavonne Hilliard - Last Filed: 08/23/23 22:06> Is patient prescribed a controlled substance at d/c from ED?: No Time of Disposition: 03:19 <Margaret Murphy - Last Filed: 08/24/23 19:26> Clinical Impression: Hypertension, UTI (urinary tract infection) Disposition: HOME SELF-CARE Condition: Good Instructions (If sedation given, give patient instructions): Urinary Tract Infection in Women (ED), Hypertension (ED) Additional Instructions: Follow-up with your PCP. Report back to ER with any new or worsening symptoms. Prescriptions: Cephalexin [Keflex] 500 mg PO Q12HR 7 Days #14 cap Referrals: Tino Aquino MD [Primary Care Provider] - 1-2 days
[2023-08-23 22:48] LABS: Basophils % (A) 1 %; Eosinophils # (A) 0.2 k/uL (0-0.7); Eosinophils % (A) 4 %; HCT 37.8 % (34.0-46.0); HGB 11.9 gm/dL (11.4-16.0); Hypochromasia Slight; Lymphocytes # (A) 0.9 k/uL (1.0-4.8); Lymphocytes % (A) 20 %; MCH 33.1 pg (25.0-35.0); MCHC 31.6 g/dL (31.0-37.0); MCV 104.7 fL (80.0-100.0); Macrocytosis Moderate; Mean Platelet Volume 10.2; Monocytes # (A) 0.3 k/uL (0-1.0); Monocytes % (A) 7 %; Neutrophils # (A) 2.7 k/uL (1.3-7.7); Neutrophils % (A) 65 %; Platelet Count 166 k/uL (150-450); RBC 3.61 m/uL (3.80-5.40); RDW 15.6 % (11.5-15.5); WBC 4.2 k/uL (3.8-10.6)
[2023-08-23 23:00] LABS: ALT 14 U/L (4-34); AST 33 U/L (14-36); African American GFR (CKD) 6 (>60 ml/min/1.73 sqM); Albumin 3.5 g/dL (3.5-5.0); Alkaline Phosphatase 67 U/L (38-126); Anion Gap 6 mmol/L; Blood Urea Nitrogen 20 mg/dL (7-17); Carbon Dioxide 32 mmol/L (22-30); Chloride 96 mmol/L (98-107); Glucose 148 mg/dL (74-99); Non-African American GFR(CKD) 5 (>60 ml/min/1.73 sqM); Sodium 134 mmol/L (137-145); Total Bilirubin 0.8 mg/dL (0.2-1.3); Total Protein 6.5 g/dL (6.3-8.2)
[2023-08-23 23:08] LABS: Potassium 5.3 mmol/L (3.5-5.1)
--- NOTE | 2023-08-24 00:15 | XR ---
EXAM: XR Chest, 2 Views CLINICAL HISTORY: ITS.REASON XR Reason: hypertension TECHNIQUE: Frontal and lateral views of the chest. COMPARISON: No relevant prior studies available. FINDINGS: Lungs: Unremarkable. No consolidation. Pleural space: Unremarkable. No pneumothorax. Heart: Cardiomegaly. Mediastinum: Unremarkable. Normal mediastinal contour. Bones/joints: Unremarkable. No acute fracture. Tubes, lines and devices: Dialysis catheter terminates in the SVC. Other findings: ACDF. IMPRESSION: No acute findings in the chest.
[2023-08-24] MEDS: METOPROLOL TARTRATE 25 MG TAB PO STA (01:33)
[2023-08-24 02:43] LABS: Appearance,Urine Turbid (Clear); Bacteria,Urine Occasional /hpf; Bilirubin,Urine Negative (Negative); Blood,Urine Moderate (Negative); Color,Urine Light Yellow; Glucose,Urine (UA) Trace (Negative); Ketones,Urine Negative (Negative); Leukocyte Esterase,Urine Large (Negative); Nitrite,Urine Negative (Negative); PH, Urine 7.5 (5.0-8.0); Protein,Urine 3+ (Negative); RBC,Urine 18 /hpf (0-5); Specific Gravity,Urine 1.016 (1.001-1.035); Squamous Epithelial Cell,Urine 15 /hpf (0-4); Urobilinogen,Urine <2.0 mg/dL (<2.0); WBC,Urine >182 /hpf (0-5)
[2023-08-24 03:10] VITALS: RESP 16
[2023-08-24] MEDS: cefTRIAXone 1,000 MG VIAL (IM USE) IM STA (03:37)
[2023-08-24 04:29] VITALS: BP 181/85; PULSE 78; TEMP 98.1
== END 2023-08-24 04:02 | disposition home or self-care (01) ==
LOC: EC 20:58
DX: N39.0 Urinary tract infection, site not specified (principal); I10 Essential (primary) hypertension; Z79.899 Other long term (current) drug therapy; Z88.5 Allergy status to narcotic agent; Z88.8 Allergy status to other drugs, medicaments and biological substances; Z99.2 Dependence on renal dialysis
CPT/HCPCS: 99284; 96372; 36415; 93005; 80053; 84484; 85025; 81001; 71046; J0696

== ENCOUNTER 2023-09-15 11:37 | Observation (INO) | payer MEDICARE ==
--- NOTE | 2023-09-15 12:46 | XR ---
EXAMINATION TYPE: XR chest 1V portable DATE OF EXAM: 09/15/2023 12:31 PM CLINICAL INDICATION:Female, 68 years old with history of dialysis cath placement; [facility] COMPARISON: Chest radiographs from 08/23/2023 TECHNIQUE: XR chest 1V portable Frontal view of the chest. FINDINGS: Lungs/Pleura: There is no evidence of pleural effusion, focal consolidation, or pneumothorax. Pulmonary vascularity: Unremarkable. Heart/mediastinum: Cardiomediastinal silhouette is unremarkable. Musculoskeletal: No acute osseous pathology. There is fixation hardware in the lower cervical spine. Right central venous catheter tip in the superior vena cava. IMPRESSION: 1. Central venous catheter in appropriate position. 2. No acute cardiopulmonary disease/process. 3. Cardiomegaly
--- NOTE | 2023-09-15 12:50 | ED ---
General Adult HPI - General Chief complaint: Recheck/Abnormal Lab/Rx Stated complaint: clogged dialysis cath Time Seen by Provider: 09/15/23 12:12 Source: patient Mode of arrival: ambulatory Limitations: no limitations - History of Present Illness Initial comments: Maldonado is a pleasant 68f with hisotry of ESRD on dialysis Sunday via cath in the right upper chest. Cath was placed a vascular surgery group in [place] in June of this year. Patient states that on when she had dialysis was slower than it was supposed to be no problem with the tubing collapsing. Today dialysis nurses access the cath they were able to f lush without difficulty they have no concern for occlusion but when they attempted to pull off that line it again collapsed and they were not able to flow at all. I discussed this with the dialysis nurse who states that she has seen this before and the cath has to be exchanged. - Related Data Home Medications Medication Instructions Recorded Confirmed Levothyroxine Sodium [Synthroid] 75 mcg PO DAILY 10/09/16 02/05/22 Pantoprazole [Protonix] 40 mg PO DAILY 10/09/16 02/05/22 Clopidogrel [Plavix] 75 mg PO DAILY 03/11/17 02/05/22 Fluticasone Nasal [place] [Flonase 1 - 2 spr EA NOSTRIL DAILY 02/05/22 02/05/22 Nasal [place]] Insulin Aspart (For Pump) [NovoLOG 0.01 unit SQ-PUMP CONTINUOUS 02/05/22 02/05/22 (For Pump)] Latanoprost [Latanoprost 0.005%] 1 drop BOTH EYES QID 02/05/22 02/05/22 Midodrine HCl [ProAmatine] 10 mg PO TUTHSA PRN 02/05/22 02/05/22 Propylene Glycol/Peg 400/Pf 1 drop BOTH EYES QID 02/05/22 02/05/22 [Systane 0.3-0.4% Ophth Dropperette] Rosio-Thomas 1 tab PO DAILY 02/05/22 02/05/22 Torsemide [Demadex] 40 mg PO HS 02/05/22 02/05/22 Previous Rx's Medication Instructions Recorded Calcium Acetate [PhosLo] 667 mg PO TID-W/MEALS cap 10/31/19 Amoxic-Pot Clav 875-125Mg 1 tab PO Q12HR 10 Days #20 tab 02/10/22 [Augmentin 875-125] Diphenox-Atrop 2.5-0.025 mg 1 each PO QID #12 tab 02/10/22 [Lomotil] INSULIN ASPART (NovoLOG) [NovoLOG See Protocol SQ ACHS each 02/10/22 (formulary)] Pregabalin [Lyrica] 50 mg PO HS #3 cap 02/10/22 Mineral Oil [Fleet Mineral Oil] 133 ml RECTAL ONCE #133 ml 12/26/22 polyethylene glycoL 3350 [Miralax] 17 gm PO DAILY #527 gm 12/26/22 Amoxic-Pot Clav 875-125Mg 1 tab PO Q12HR 7 Days #14 tab 08/20/23 [Augmentin 875-125] Cephalexin [Keflex] 500 mg PO Q12HR 7 Days #14 cap 08/24/23 Allergies Allergy/AdvReac Type Severity Reaction Status Date / Time gabapentin Allergy Rash/Hives Verified 09/15/23 11:42 escitalopram [From Lexapro] AdvReac Hallucinati Verified 09/15/23 11:42 ons lisinopril AdvReac Cough Verified 09/15/23 11:42 morphine AdvReac Hallucinati Verified 09/15/23 11:42 ons quetiapine [From Seroquel] AdvReac Hallucinati Verified 09/15/23 11:42 ons Review of Systems ROS Statement: Those systems with pertinent positive or pertinent negative responses have been documented in the HPI. ROS Other: All systems not noted in ROS Statement are negative. Past Medical History Past Medical History: Diabetes Mellitus, Dialysis, GERD/Reflux, Hyperlipidemia, Hypertension, Memory Impairment, Renal Disease, Thyroid Disorder Additional Past Medical History / Comment(s): peritoneal dialysis daily over night. hx steel syndrome left hand-please use rt arm/hand for iv, blood draws. diabetic neuropathy and diabetic retinopathy, Rt BKA uses prosthesis. 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 neck c ervical 4,5,6 fused. graft tie off 04/05/2017, eye laser surgery for diabetic retinopathy Past Anesthesia/Blood Transfusion Reactions: No Reported Reaction Past Psychological History: Anxiety, Depression Smoking Status: Never smoker Past Alcohol Use History: None Reported Past Drug Use History: None Reported - Past Family History Mother Family Medical History: Diabetes Mellitus, Hypertension Additional Family Medical History / Comment(s): colon ca Father Family Medical History: Myocardial Infarction ([place]) General Exam - General Exam Comments Initial Comments: Physical Exam GENERAL: Patient is well-developed and well-nourished. Patient is nontoxic and well-hydrated and is in no distress. HENT: Normocephalic, Atraumatic. EYES: PERRL, EOMI PULMONARY: Unlabored respirations. CARDIOVASCULAR: RRR Dialysis cath in right chest ABDOMEN: Non-distended SKIN: No rashes or bruising : Deferred NEUROLOGIC: Alert and oriented Normal speech MUSCULOSKELETAL: Moving all extremities with no apparent injury Right BKA PSYCHIATRIC: No SI/HI Limitations: no limitations Course Vital Signs 09/15/23 11:40 Temperature 98 F Pulse Rate 86 Respiratory 18 Rate Blood Pressure 169/82 O2 Sat by Pulse 98 Oximetry Medical Decision Making - Medical Decision Making Was pt. sent in by a medical professional or institution (SANDER Calderon, [employer] SAL[employer]ISTANT, urgent care, hospital, or half-way...) When possible be specific @ -Yes, sent from dialysis center Did you speak to anyone other than the patient for history (EMS, parent, family, police, friend...)? What history was obtained from this source @ -Yes spoke with dialysis nurse Did you review nursing and triage notes (agree or disagree)? Why? @ -I reviewed and agree with nursing and triage notes Were old charts reviewed (outside hosp., previous admission, EMS record, old EKG, old radiological studies, urgent care reports/EKG's, half-way records)? Report findings @ -No old charts were reviewed Differential Diagnosis (chest pain, altered mental status, abdominal pain women, abdominal pain men, vaginal bleeding, weakness, fever, dyspnea, syncope, headache, dizziness, GI bleed, back pain, seizure, CVA, palpatations, mental health)? @ -Differential includes port malfunction, occlusion or clot EKG interpreted by me (3pts min.). @ -As above X-rays interpreted by me (1pt min.). @ -Chest x-ray shows Port-A-Cath in good position no obvious damage CT interpreted by me (1pt min.). @ -None done U/S interpreted by me (1pt. min.). @ -None done What testing was considered but not performed or refused? (CT, X-rays, U/S, labs)? Why? @ -None What meds were considered but not given or refused? Why? @ -None Did you discuss the management of the patient with other professionals (professionals i.e. DrMagda, PA, [employer] SALES ASSISTANT, lab, RT, psych nurse, case management social worker, group fitness department head, teacher, juvenile probation officer, correctional casework specialist)? Give summary @ -Discussed with vascular surgeon Dr. Jaramillo, mechanical manufacturing technician Dr. Archer, admitting physician Dr. Augustine Was smoking cessation discussed for >3mins.? @ -No Was critical care preformed (if so, how long)? @ -Yes, 30 minutes Were there social determinants of health that impacted care today? How? (Homelessness, low income, unemployed, alcoholism, drug addiction, transportation, low edu. Level, literacy, decrease access to med. care, fdc, rehab)? @ -No Was there de-escalation of care discussed even if they declined (Discuss DNR or withdrawal of care, Hospice)? DNR status @ -No What co-morbidities impacted this encounter? (DM, HTN, Smoking, COPD, CAD, Cancer, CVA, ARF, Chemo, Hep., AIDS, mental health diagnosis, sleep apnea, morbid obesity)? @ -None Was patient admitted / discharged? Hospital course, mention meds given and route, prescriptions, significant lab abnormalities, going to OR and other pertinent info. @ -The patient was seen and evaluated, history is obtained from the patient as well as the nurse at her dialysis center. Patient care was discussed with [facility] ular surgeon Dr. Jaramillo who recommends patient be taken to the [facility] for cath exchange or possibly new cath placement. He recommends the patient be admitted postprocedure for dialysis, patient may require extra dialysis that she is receiving IV contrast during the procedure. Dr. Augustine accepts the admission and Dr. Archer made aware that the patient will need dialysis. Undiagnosed new problem with uncertain prognosis? @ -No Drug Therapy requiring intensive monitoring for toxicity (Heparin, Nitro, Insulin, Cardizem)? @ -No Were any procedures done? @ -No Diagnosis/symptom? @ -Dialysis cath malfunction Acute, or Chronic, or Acute on Chronic? @ -Acute Uncomplicated (without systemic symptoms) or Complicated (systemic symptoms)? @ -Default Side effects of treatment? @ -No Exacerbation, Progression, or Severe Exacerbation? @ -No Poses a threat to life or bodily function? How? (Chest pain, [place], [place], pneumonia, PE, COPD, DKA, ARF, appy, cholecystitis, CVA, Diverticulitis, Homicidal, Suicidal, threat to staff... and all critical care pts) @ -Yes, patient unable to receive dialysis which can lead to toxin buildup or electrolyte abnormality resulting in - Lab Data Result diagrams: 09/15/23 13:02 Lab Results 09/15/23 09/15/23 Range/Units 13:02 13:02 WBC 8.2 (3.8-10.6) k/uL RBC 3.17 L (3.80-5.40) m/uL Hgb 10.4 L (11.4-16.0) gm/dL Hct 32.7 L (34.0-46.0) % MCV 103.2 H (80.0-100.0) fL MCH 32.8 (25.0-35.0) pg MCHC 31.7 (31.0-37.0) g/dL RDW 14.9 (11.5-15.5) % Plt Count 201 (150-450) k/uL MPV 11.3 Neutrophils % 77 % Lymphocytes % 13 % Monocytes % 7 % Eosinophils % 2 % Basophils % 1 % Neutrophils # 6.3 (1.3-7.7) k/uL Lymphocytes # 1.0 (1.0-4.8) k/uL Monocytes # 0.6 (0-1.0) k/uL Eosinophils # 0.1 (0-0.7) k/uL Basophils # 0.0 (0-0.2) k/uL Macrocytosis Slight PT 10.5 (10.0-12.5) sec INR 0.9 (<1.2) APTT 26.2 (22.0-30.0) sec Disposition Clinical Impression: ESRD (end stage renal disease) on dialysis Disposition: ADMITTED IP TO THIS HOSP Condition: Serious Is patient prescribed a controlled substance at d/c from ED?: No Referrals: Tino Aquino MD [Primary Care Provider] - 1-2 days
[2023-09-15 13:23] LABS: Basophils % (A) 1 %; Eosinophils # (A) 0.1 k/uL (0-0.7); Eosinophils % (A) 2 %; HCT 32.7 % (34.0-46.0); HGB 10.4 gm/dL (11.4-16.0); Lymphocytes % (A) 13 %; MCH 32.8 pg (25.0-35.0); MCHC 31.7 g/dL (31.0-37.0); MCV 103.2 fL (80.0-100.0); Macrocytosis Slight; Mean Platelet Volume 11.3; Monocytes # (A) 0.6 k/uL (0-1.0); Monocytes % (A) 7 %; Neutrophils # (A) 6.3 k/uL (1.3-7.7); Neutrophils % (A) 77 %; Platelet Count 201 k/uL (150-450); RBC 3.17 m/uL (3.80-5.40); RDW 14.9 % (11.5-15.5); WBC 8.2 k/uL (3.8-10.6)
[2023-09-15 13:37] LABS: INR 0.9 (<1.2); Prothrombin Time 10.5 sec (10.0-12.5)
[2023-09-15 13:38] LABS: Partial Thromboplastin Time 26.2 sec (22.0-30.0)
[2023-09-15] MEDS ORDERED: NALOXONE 0.4 MG/ML 1 ML VIAL IV PRN (14:00)
[2023-09-15] MEDS: SODIUM CHLORIDE 0.9% 250 ML IV ONE (14:15)
[2023-09-15 14:23] LABS: ALT 10 U/L (4-34); AST 16 U/L (14-36); African American GFR (CKD) 5 (>60 ml/min/1.73 sqM); Albumin 3.1 g/dL (3.5-5.0); Alkaline Phosphatase 80 U/L (38-126); Anion Gap 6 mmol/L; Blood Urea Nitrogen 51 mg/dL (7-17); Calcium 8.3 mg/dL (8.4-10.2); Carbon Dioxide 27 mmol/L (22-30); Chloride 104 mmol/L (98-107); Glucose 246 mg/dL (74-99); Non-African American GFR(CKD) 4 (>60 ml/min/1.73 sqM); Phosphorus 3.9 mg/dL (2.5-4.5); Potassium 5.2 mmol/L (3.5-5.1); Sodium 137 mmol/L (137-145); Total Bilirubin 0.8 mg/dL (0.2-1.3); Total Protein 5.8 g/dL (6.3-8.2)
--- NOTE | 2023-09-15 14:26 | P.GSCN ---
History of Present Illness History of present illness: 68-year-old female patient known to me from the past patient came in with history of nonfunctioning dialysis catheter. Patient had this procedure done x 3 in the past for exchange of dialysis catheter patient had a catheter placed x 2 [facility] Patient has right be completed in the past Medical history history of chronic renal failure diabetes peripheral vascular disease Patient was seen in the emergency room neck is supple trachea central chest is clear to auscultation. Second sound present Abdomen soft nontender patient has right B-K amputation. Processes Plan is patient needs exchange of dialysis catheter since patient had a x 3 catheter placed in the past I have discussed with the patient we will do the superior venacavogram make sure vena cava is patent risk and complication discussed with the patient Past Medical History Past Medical History: Diabetes Mellitus, Dialysis, GERD/Reflux, Hyperlipidemia, Hypertension, Memory Impairment, Renal Disease, Thyroid Disorder Additional Past Medical History / Comment(s): peritoneal dialysis daily over night. hx steel syndrome left hand-please use rt arm/hand for iv, blood draws. diabetic neuropathy and diabetic retinopathy, Rt BKA uses prosthesis. 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 neck cervical 4,5,6 fused. graft tie off 04/05/2017, eye laser surgery for diabetic retinopathy Past Anesthesia/Blood Transfusion Reactions: No Reported Reaction Past Psychological History: Anxiety, Depression Smoking Status: Never smoker Past Alcohol Use History: None Reported Past Drug Use History: None Reported - Past Family History Mother Family Medical History: Diabetes Mellitus, Hypertension Additional Family Medical History / Comment(s): colon ca Father Family Medical History: Myocardial Infarction ([place]) Medications and Allergies Home Medications Medication Instructions Recorded Confirmed Type Levothyroxine Sodium [Synthroid] 75 mcg PO DAILY 10/09/16 02/05/22 History Pantoprazole [Protonix] 40 mg PO DAILY 10/09/16 02/05/22 History Clopidogrel [Plavix] 75 mg PO DAILY 03/11/17 02/05/22 History Calcium Acetate [PhosLo] 667 mg PO TID-W/MEALS cap 02/27/19 02/05/22 Rx Fluticasone Nasal [place] [Flonase 1 - 2 spr EA NOSTRIL DAILY 02/05/22 02/05/22 History Nasal [place]] Insulin Aspart (For Pump) [NovoLOG 0.01 unit SQ-PUMP CONTINUOUS 02/05/22 02/05/22 History (For Pump)] Latanoprost [Latanoprost 0.005%] 1 drop BOTH EYES QID 02/05/22 02/05/22 History Midodrine HCl [ProAmatine] 10 mg PO TUTHSA PRN 02/05/22 02/05/22 History Propylene Glycol/Peg 400/Pf 1 drop BOTH EYES QID 02/05/22 02/05/22 History [Systane 0.3-0.4% Ophth Dropperette] Rosio-Thomas 1 tab PO DAILY 02/05/22 02/05/22 History Torsemide [Demadex] 40 mg PO HS 02/05/22 02/05/22 History Amoxic-Pot Clav 875-125Mg 1 tab PO Q12HR 10 Days #20 tab 02/10/22 Rx [Augmentin 875-125] Diphenox-Atrop 2.5-0.025 mg 1 each PO QID #12 tab 02/10/22 Rx [Lomotil] INSULIN ASPART (NovoLOG) [NovoLOG See Protocol SQ ACHS each 02/10/22 Rx (formulary)] Pregabalin [Lyrica] 50 mg PO HS #3 cap 02/10/22 Rx Mineral Oil [Fleet Mineral Oil] 133 ml RECTAL ONCE #133 ml 12/26/22 Rx polyethylene glycoL 3350 [Miralax] 17 gm PO DAILY #527 gm 12/26/22 Rx Amoxic-Pot Clav 875-125Mg 1 tab PO Q12HR 7 Days #14 tab 08/20/23 Rx [Augmentin 875-125] Cephalexin [Keflex] 500 mg PO Q12HR 7 Days #14 cap 08/24/23 Rx Allergies Allergy/AdvReac Type Severity Reaction Status Date / Time gabapentin Allergy Rash/Hives Verified 09/15/23 11:42 escitalopram [From Lexapro] AdvReac Hallucinati Verified 09/15/23 11:42 ons lisinopril AdvReac Cough Verified 09/15/23 11:42 morphine AdvReac Hallucinati Verified 09/15/23 11:42 ons quetiapine [From Seroquel] AdvReac Hallucinati Verified 09/15/23 11:42 ons Surgical - Exam Vital Signs Temp Pulse Resp BP Pulse Ox 98 F 86 18 169/82 98 09/15/23 11:40 09/15/23 11:40 09/15/23 11:40 09/15/23 11:40 09/15/23 11:40 Results - Labs 09/15/23 13:02 Abnormal Lab Results - Last 24 Hours (Table) 09/15/23 Range/Units 13:02 RBC 3.17 L (3.80-5.40) m/uL Hgb 10.4 L (11.4-16.0) gm/dL Hct 32.7 L (34.0-46.0) % MCV 103.2 H (80.0-100.0) fL
[2023-09-15] MEDS: MIDAZOLAM 2 MG/2 ML VIAL IVP ONE (14:45)
[2023-09-15] MEDS: LIDOCAINE 1% INJ 10MG/ML (20 ML MDV) SQ ONE ×2 (14:45→15:02)
[2023-09-15] MEDS: fentaNYL (PF) 50 MCG/ML 2 ML AMP IVP ONE (14:49)
--- NOTE | 2023-09-15 15:30 | P.PCN ---
Description of Procedure: Preop diagnosis is acute chronic renal failure mild function dialysis cath Postop same Procedure placement of a 19 cm dialysis catheter right jugular approach this patient was brought to the [employer] [facility] right side of the chest and neck was prepped draped in Prestel manner this patient had a dialysis catheter placed in the past at [facility] 1% lidocaine for intermittent exercise right side of the catheter and on the neck incision area dissection was carried out ordered by the dialysis catheter catheter was divided and guidewire was passed which was parked at the inferior vena cava old catheter was removed then we passed the dilator under fluoroscopy controlled without any resistance and we placed a sheath on the top of the guidewire through the sheath we did use dialysis catheter tip catheter superior vena cava after injection flushed with heparin saline or catheter which was removed had a clot secured with 3-0 nylon dressing applied patient tarted the procedure well patient will have a dialysis in-house
--- NOTE | 2023-09-15 15:59 | IR ---
EXAMINATION TYPE: IR cvc insert >=5 years Intraoperative/procedural fluoroscopic services were provid ed. CLINICAL INDICATION:Female, 68 years old with history of PREVIOUS CATHETER OCCLUDED; , PHH Total fluoroscopy time is not reported min. DAP: Not reported Gycm2 uGym2 Please see the operative/procedural note for further details.
[2023-09-15] MEDS ORDERED: DEXTROSE 50% SYRINGE 50 ML IVP PRN ×2 (16:07)
--- NOTE | 2023-09-15 16:10 | P.HPIM ---
History of Present Illness H&P Date: 09/15/23 Patient is a 68-year-old female with history of ESRD on hemodialysis, hypertension, hypothyroidism, insulin-dependent diabetes presenting with malfunctioning dialysis catheter. Patient gets dialysis 3 times a week. However, she had difficulty getting dialysis on due to malfunctioning dialysis catheter. However they were unable to access it today. She denies any chest pain, shortness of breath, abdominal pain, nausea, vomiting, urinary or bowel complaints. In the ED, temperature was 98, pulse 86, respiratory rate 18, blood pressure 169/82, saturating at 98% on room air. WBC 8.2, hemoglobin 10.4 around baseline, platelet 201, potassium 5.2, creatinine 8.26, glucose 246, phosphorus 3.9, calcium 8.3. Vascular surgery consulted for catheter exchange. Nephrology consulted for hemodialysis. Patient being monitored for observation. Pertinent positives and negatives as discussed in HPI, a complete review of systems was performed and all other systems are negative. Patient seen and examined at bedside. Vital signs reviewed General: nontoxic, no distress, appears at stated age Derm: warm, dry, dressing clean, dry, intact Head: atraumatic, normocephalic, symmetric Eyes: EOMI, no lid lag, anicteric sclera, pupils equal round reactive to light ENT: Nose and ears atraumatic Neck: No thyromegaly, supple Mouth: no lip lesion, mucus membranes moist Cardiovascular: S1S2 reg, no murmur, no edema Lungs: clear to auscultation bilateral, no rhonchi, no rales, no wheeze, no accessory muscle use Abdominal: soft, nontender to palpation, no guarding, no appreciable or ganomegaly Ext: Right BKA Neuro: CN II-XII grossly intact Psych: Alert, oriented, appropriate affect Assessment/Plan: Active: Nonfunctioning dialysis catheter ESRD on hemodialysis TTS Hyperkalemia -Vascular surgery note reviewed, dialysis catheter exchange -Nephrology consulted, pending recommendations -Repeat BMP tomorrow Insulin-dependent diabetes Hyperglycemia -She was previously on insulin pump, now discontinued -Continue Levemir 16 units daily, sliding scale insulin, monitor for hypogl ycemia Recent UTI, no longer on antibiotics. Chronic: Chronic anemia, likely secondary to ESRD Hypertension Hypothyroidism GERD Neuropathy Restart home medications once confirmed by pharmacy. The patient is admitted with an anticipated less than 2 midnight stay as observation status for evaluation of nonfunctioning dialysis catheter. Surrogate decision-maker: Sibling CODE STATUS: Full code DVT prophylaxis: Subcu heparin Anticipated discharge date: Pending clinical course Anticipated discharge place: Pending clinical course A total of 55 minutes was spent on the care of this complex patient more than 50% of the time was spent in counseling and care coordination. Past Medical History Past Medical History: Diabetes Mellitus, Dialysis, GERD/Reflux, Hyperlipidemia, Hypertension, Memory Impairment, Renal Disease, Thyroid Disorder Additional Past Medical History / Comment(s): peritoneal dialysis daily over night. hx steel syndrome left hand-please use rt arm/hand for iv, blood draws. diabetic neuropathy and diabetic retinopathy, Rt BKA uses prosthesis. Left heel wound History of Any Multi-Drug Resistant Organisms: ESBL, MRSA, Other MDRO, VRE Date of last positivie culture/infection: 08/26/19 VRE/ 06/09/19 ESBL /2015 MRSA MDRO Source:: VRE URINE MRSA FOOT ESBL FOOT Past Surgical History: Back Surgery, Hysterectomy Additional Past Surgical History / Comment(s): RBKA 01/23/16 R/T DM. neck cervical 4,5,6 fused. graft tie off 04/05/2017, eye laser surgery for diabetic retinopathy Past Anesthesia/Blood Transfusion Reactions: No Reported Reaction Past Psychological History: Anxiety, Depression Smoking Status: Never smoker Past Alcohol Use History: None Reported Past Drug Use History: None Reported - Past Family History Mother Family Medical History: Diabetes Mellitus, Hypertension Additional Family Medical History / Comment(s): colon ca Father Family Medical History: Myocardial Infarction ([place]) Medications and Allergies Home Medications Medication Instructions Recorded Confirmed Type Levothyroxine Sodium [Synthroid] 75 mcg PO DAILY 10/09/16 02/05/22 History Pantoprazole [Protonix] 40 mg PO DAILY 10/09/16 02/05/22 History Clopidogrel [Plavix] 75 mg PO DAILY 03/11/17 02/05/22 History Calcium Acetate [PhosLo] 667 mg PO TID-W/MEALS cap 02/27/19 02/05/22 Rx Fluticasone Nasal [place] [Flonase 1 - 2 spr EA NOSTRIL DAILY 02/05/22 02/05/22 History Nasal [place]] Insulin Aspart (For Pump) [NovoLOG 0.01 unit SQ-PUMP CONTINUOUS 02/05/22 02/05/22 History (For Pump)] Latanoprost [Latanoprost 0.005%] 1 drop BOTH EYES QID 02/05/22 02/05/22 History Midodrine HCl [ProAmatine] 10 mg PO TUTHSA PRN 02/05/22 02/05/22 History Propylene Glycol/Peg 400/Pf 1 drop BOTH EYES QID 02/05/22 02/05/22 History [Systane 0.3-0.4% Ophth Dropperette] Rosio-Thomas 1 tab PO DAILY 02/05/22 02/05/22 History Torsemide [Demadex] 40 mg PO HS 02/05/22 02/05/22 History Amoxic-Pot Clav 875-125Mg 1 tab PO Q12HR 10 Days #20 tab 02/10/22 Rx [Augmentin 875-125] Diphenox-Atrop 2.5-0.025 mg 1 each PO QID #12 tab 02/10/22 Rx [Lomotil] INSULIN ASPART (NovoLOG) [NovoLOG See Protocol SQ ACHS each 02/10/22 Rx (formulary)] Pregabalin [Lyrica] 50 mg PO HS #3 cap 02/10/22 Rx Mineral Oil [Fleet Mineral Oil] 133 ml RECTAL ONCE #133 ml 12/26/22 Rx polyethylene glycoL 3350 [Miralax] 17 gm PO DAILY #527 gm 12/26/22 Rx Amoxic-Pot Clav 875-125Mg 1 tab PO Q12HR 7 Days #14 tab 08/20/23 Rx [Augmentin 875-125] Cephalexin [Keflex] 500 mg PO Q12HR 7 Days #14 cap 08/24/23 Rx Allergies Allergy/AdvReac Type Severity Reaction Status Date / Time gabapentin Allergy Rash/Hives Verified 09/15/23 11:42 escitalopram [From Lexapro] AdvReac Hallucinati Verified 09/15/23 11:42 ons lisinopril AdvReac Cough Verified 09/15/23 11:42 morphine AdvReac Hallucinati Verified 09/15/23 11:42 ons quetiapine [From Seroquel] AdvReac Hallucinati Verified 09/15/23 11:42 ons Physical Exam Vitals: Vital Signs Temp Pulse Resp BP Pulse Ox 09/15/23 11:40 98 F 86 18 169/82 98 Intake and Output 09/15/23 09/15/23 09/15/23 06:59 14:59 22:59 Intake Total 150 Balance 150 Intake: IV 150 Other: Weight 101.7 kg Results CBC & Chem 7: 09/15/23 13:02 09/15/23 13:45 Labs: Abnormal Lab Results - Last 24 Hours (Table) 09/15/23 09/15/23 Range/Units 13:02 13:45 RBC 3.17 L (3.80-5.40) m/uL Hgb 10.4 L (11.4-16.0) gm/dL Hct 32.7 L (34.0-46.0) % MCV 103.2 H (80.0-100.0) fL Potassium 5.2 H (3.5-5.1) mmol/L BUN 51 H (7-17) mg/dL Creatinine 8.26 H* (0.52-1.04) mg/dL Glucose 246 H (74-99) mg/dL Calcium 8.3 L (8.4-10.2) mg/dL Total Protein 5.8 L (6.3-8.2) g/dL Albumin 3.1 L (3.5-5.0) g/dL
[2023-09-15 17:24] LABS: Glucose,Whole Blood 170 mg/dL (70-110)
[2023-09-15] MEDS: ACETAMINOPHEN TAB 325 MG TAB PO PRN (17:46)
[2023-09-15] MEDS: INSULIN ASPART (NovoLOG) 100 UNIT/ML VIAL SQ SCH (17:47)
[2023-09-15] MEDS: INSULIN DETEMIR (LEVEMIR) 100 UNIT/ML SYR SQ STA (17:47)
[2023-09-15 19:37] LABS: Glucose,Whole Blood 168 mg/dL (70-110)
[2023-09-15 21:27] VITALS: RESP 18
[2023-09-15] MEDS ORDERED: ERGOCALCIFEROL 1,250 MCG (50,000 IU) CAPSULE PO SCH (22:00)
[2023-09-15] MEDS: HEPARIN SODIUM,PORCINE 5,000 UNIT/ML 1 ML VIAL SQ SCH (22:32)
[2023-09-15] MEDS: LATANOPROST 0.005% OPHTH DROPS 2.5 ML BTL BOTH EYES SCH (22:33)
[2023-09-15] MEDS: carvediloL 3.125 MG TAB PO SCH (22:33)
[2023-09-16 04:34] LABS: Glucose,Whole Blood 141 mg/dL (70-110)
[2023-09-16 04:47] LABS: Basophils % (A) 1 %; Eosinophils # (A) 0.2 k/uL (0-0.7); Eosinophils % (A) 3 %; HCT 30.3 % (34.0-46.0); HGB 9.2 gm/dL (11.4-16.0); Lymphocytes # (A) 0.9 k/uL (1.0-4.8); Lymphocytes % (A) 15 %; MCH 31.3 pg (25.0-35.0); MCHC 30.3 g/dL (31.0-37.0); MCV 103.5 fL (80.0-100.0); Macrocytosis Slight; Mean Platelet Volume 10.4; Monocytes # (A) 0.2 k/uL (0-1.0); Monocytes % (A) 4 %; Neutrophils # (A) 4.4 k/uL (1.3-7.7); Neutrophils % (A) 75 %; Platelet Count 198 k/uL (150-450); RBC 2.92 m/uL (3.80-5.40); RDW 14.9 % (11.5-15.5); WBC 5.8 k/uL (3.8-10.6)
[2023-09-16 04:58] LABS: African American GFR (CKD) 8 (>60 ml/min/1.73 sqM); Anion Gap 6 mmol/L; Blood Urea Nitrogen 26 mg/dL (7-17); Calcium 7.9 mg/dL (8.4-10.2); Carbon Dioxide 27 mmol/L (22-30); Chloride 100 mmol/L (98-107); Glucose 143 mg/dL (74-99); Non-African American GFR(CKD) 7 (>60 ml/min/1.73 sqM); Potassium 4.3 mmol/L (3.5-5.1); Sodium 133 mmol/L (137-145)
[2023-09-16] MEDS: LEVOTHYROXINE 75 MCG TAB PO SCH (05:50)
[2023-09-16] MEDS: PANTOPRAZOLE 40 MG TABLET PO SCH (05:50)
[2023-09-16 08:02] LABS: Glucose,Whole Blood 128 mg/dL (70-110)
[2023-09-16] MEDS: INSULIN DETEMIR (LEVEMIR) 100 UNIT/ML SYR SQ SCH (08:42)
[2023-09-16] MEDS: CLOPIDOGREL 75 MG TAB PO SCH (08:43)
[2023-09-16] MEDS: DOCUSATE 100 MG CAP PO SCH (08:43)
[2023-09-16] MEDS: TORSEMIDE 20 MG TAB PO SCH (08:44)
[2023-09-16] MEDS: FLUTICASONE 50MCG/SPRAY NASAL 16GM EA NOSTRIL SCH (08:44)
[2023-09-16] MEDS: FOLIC ACID-VIT B COMPLEX-VIT C 1 CAP PO SCH (08:58)
[2023-09-16] MEDS: CALCIUM ACETATE 667 MG TAB PO SCH (08:58)
[2023-09-16] MEDS: ONDANSETRON 4 MG/2 ML VIAL IVP PRN (09:56)
--- NOTE | 2023-09-16 12:35 | P.NPCON ---
History of Present Illness - Reason for Consult end stage renal disease - History of Present Illness patient is a 68-year-old female with end-stage renal disease on hemodialysis on a Sunday schedule. She was admitted to the hospital as her dialysis catheter was not working. Status post new right IJ catheter placement yesterday and patient was dialyzed last night. Patient is complaining of nausea today. She has not been able to eat much. No history of fever chills chest pain or shortness of breath. Review of Systems as per HPI Past Medical History Past Medical History: Diabetes Mellitus, Dialysis, GERD/Reflux, Hyperlipidemia, Hypertension, Memory Impairment, Renal Disease, Thyroid Disorder Additional Past Medical History / Comment(s): peritoneal dialysis daily over night. hx steel syndrome left hand-please use rt arm/hand for iv, blood draws. diabetic neuropathy and diabetic retinopathy, Rt BKA uses prosthesis. 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 neck cervical 4,5,6 fused. graft tie off 04/05/2017, eye laser surgery for diabetic retinopathy Past Anesthesia/Blood Transfusion Reactions: No Reported Reaction Past Psychological History: Anxiety, Depression Smoking Status: Never smoker Past Alcohol Use History: None Reported Past Drug Use History: None Reported - Past Family History Mother Family Medical History: Diabetes Mellitus, Hypertension Additional Family Medical History / Comment(s): colon ca Father Family Medical History: Myocardial Infarction ([place]) Medications and Allergies Home Medications Medication Instructions Recorded Confirmed Type Levothyroxine Sodium [Synthroid] 75 mcg PO DAILY 10/09/16 09/15/23 History Pantoprazole [Protonix] 40 mg PO DAILY 10/09/16 09/15/23 History Clopidogrel [Plavix] 75 mg PO DAILY 03/11/17 09/15/23 History Calcium Acetate [PhosLo] 667 mg PO TID-W/MEALS cap 02/27/19 09/15/23 Rx Fluticasone Nasal [place] [Flonase 1 spr EA NOSTRIL BID 02/05/22 09/15/23 History Nasal [place]] Latanoprost [Latanoprost 0.005%] 1 drop BOTH EYES HS 02/05/22 09/15/23 History Midodrine HCl [ProAmatine] 10 mg PO TUTHSA PRN 02/05/22 09/15/23 History Torsemide [Demadex] 20 mg PO BID 02/05/22 09/15/23 History Docusate [Colace] 100 mg PO DAILY 09/15/23 09/15/23 History Ergocalciferol [Vitamin D2 (1250 1,250 mcg PO TUTHSA 09/15/23 09/15/23 History Mcg = 36319 Iu)] Famotidine 20 mg PO HS 09/15/23 09/15/23 History Folic Acid/Vit B Complex and C 0.8 mg PO DAILY 09/15/23 09/15/23 History [Rosio-Thomas Tablet] Humalog(Unknown) See Protocol SQ AC-TID 09/15/23 09/15/23 History Levemir(Unknown) 16 units SQ DIRECTED 09/15/23 09/15/23 History Pregabalin [Lyrica] 75 mg PO HS 09/15/23 09/15/23 History Systane Dry Eye 1 drop BOTH EYES QID PRN 09/15/23 09/15/23 History carvediloL [Coreg] 3.125 mg PO BID 09/15/23 09/15/23 History Allergies Allergy/AdvReac Type Severity Reaction Status Date / Time gabapentin Allergy Rash/Hives Verified 09/15/23 11:42 escitalopram [From Lexapro] AdvReac Hallucinati Verified 09/15/23 11:42 ons lisinopril AdvReac Cough Verified 09/15/23 11:42 morphine AdvReac Hallucinati Verified 09/15/23 11:42 ons quetiapine [From Seroquel] AdvReac Hallucinati Verified 09/15/23 11:42 ons Physical Exam Vitals: Vital Signs Temp Pulse Resp BP BP Pulse Ox 09/16/23 07:25 98.5 F 88 160/92 99 09/16/23 01:09 98.3 F 88 156/80 99 09/15/23 21:11 98 F 78 18 162/92 09/15/23 19:59 97.8 F 81 16 150/70 100 09/15/23 17:30 80 184/88 09/15/23 16:45 79 181/82 09/15/23 16:30 88 193/92 09/15/23 16:15 83 184/90 09/15/23 16:00 84 173/85 09/15/23 15:45 97.8 F 85 16 187/83 Intake and Output 09/15/23 09/16/23 09/16/23 22:59 06:59 14:59 Intake Total 500 Output Total 3800 200 Balance -3300 -200 Intake: Hemodialysis 500 Output: Emesis 200 Hemodialysis 2150 Other 1650 Other: Weight 101.7 kg 92.2 kg patient is awake, comfortable, no acute distress Examination of the heart S1 and S2 Examination of the lungs bilateral breath sounds are heard Abdomen is soft nontender Examination of lower extremity shows right BKA, trace edema left lower extremity. Results - Lab Results Most recent lab results Calcium 7.9 mg/dL (8.4-10.2) L 09/16/23 04:14 Phosphorus 3.9 mg/dL (2.5-4.5) 09/15/23 13:45 09/16/23 04:14 09/16/23 04:14 Assessment and Plan Assessment: 1. End-stage renal disease on hemodialysis on a Sunday schedule 2. Nonfunctioning dialysis catheter status post removal and placement of new catheter yesterday. Patient did receive her dialysis yesterday 3. CK D mineral bone disorder 4. Anemia of chronic disease Plan: next hemodialysis on 09/18/2023. continue phosphate binders with meals
[2023-09-16 12:41] LABS: Glucose,Whole Blood 117 mg/dL (70-110)
--- NOTE | 2023-09-16 13:57 | P.DS ---
Providers Date of admission: 09/15/23 14:00 Expected date of discharge: 09/16/23 Attending physician: Jose Augustine MD Consults: 09/15/23 13:27 Consult Physician Stat Consulting Provider: Jc Jaramillo Consult Reason/Comments: dialysis cath exchange Do you want consulting provider notified?: Already Contacted 09/15/23 14:00 Consult Physician Urgent Consulting Provider: Zoey Archer Consult Reason/Comments: dialysis Do you want consulting provider notified?: Already Contacted Primary care physician: Tino Aquino MD Hospital Course: Discharge Diagnosis: Nonfunctioning dialysis catheter ESRD on hemodialysis TTS Hyperkalemia Insulin-dependent diabetes Hyperglycemia Recent UTI, no longer on antibiotics. Chronic anemia, likely secondary to ESRD Hypertension Hypothyroidism GERD Neuropathy Hospital Course: 68-year-old female with history of ESRD on hemodialysis, hypertension, hypothyroidism, insulin-dependent diabetes presenting with malfunctioning dialy sis catheter. In the ED, temperature was 98, pulse 86, respiratory rate 18, blood pressure 169/82, saturating at 98% on room air. WBC 8.2, hemoglobin 10.4 around baseline, platelet 201, potassium 5.2, creatinine 8.26, glucose 246, phosphorus 3.9, calcium 8.3. Vascular surgery consulted for catheter exchange. Nephrology consulted for hemodialysis. Patient being monitored for observation. Patient had dialysis catheter exchange. And had dialysis. Follow-up outpatient with nephrology. Patient seen and examined at bedside. Vital signs reviewed and stable. General: nontoxic, no distress, appears at stated age Derm: warm, dry, dressing clean, dry, intact Head: atraumatic, normocephalic, symmetric Eyes: EOMI, no lid lag, anicteric sclera, pupils equal round reactive to light ENT: Nose and ears atraumatic Neck: No thyromegaly, supple Mouth: no lip lesion, mucus membranes moist Cardiovascular: S1S2 reg, no murmur, no edema Lungs: clear to auscultation bilateral, no rhonchi, no rales, no wheeze, no accessory muscle use Abdominal: soft, nontender to palpation, no guarding, no appreciable organomegaly Ext: Right BKA Neuro: CN II-XII grossly intact Psych: Alert, oriented, appropriate affect A total of 33 minutes of time were spent preparing this complex discharge summary. Patient was discharged on 09/16/2023 at 1355. Patient Condition at Discharge: Stable Plan - Discharge Summary New Discharge Prescriptions: Continue RX: Pantoprazole [Protonix] 40 mg PO DAILY RX: Levothyroxine Sodium [Synthroid] 75 mcg PO DAILY RX: Clopidogrel [Plavix] 75 mg PO DAILY RX: Calcium Acetate [PhosLo] 667 mg PO TID-W/MEALS cap RX: Midodrine HCl [ProAmatine] 10 mg PO TUTHSA PRN PRN Reason: low bp@dialysis RX: Torsemide [Demadex] 20 mg PO BID RX: Fluticasone Nasal [place] [Flonase Nasal [place]] 1 spr EA NOSTRIL BID RX: Famotidine 20 mg PO HS RX: Ergocalciferol [Vitamin D2 (1250 Mcg = 51677 Iu)] 1,250 mcg PO TUTHSA RX: Docusate [Colace] 100 mg PO DAILY RX: carvediloL [Coreg] 3.125 mg PO BID Levemir(Unknown) 16 units SQ DIRECTED RX: Latanoprost [Latanoprost 0.005%] 1 drop BOTH EYES HS RX: Pregabalin [Lyrica] 75 mg PO HS RX: Folic Acid/Vit B Complex and C [Rosio-Thomas Tablet] 0.8 mg PO DAILY Systane Dry Eye 1 drop BOTH EYES QID PRN PRN Reason: Dry Eye(S) Humalog(Unknown) See Protocol SQ AC-TID Discharge Medication List RX: Levothyroxine Sodium [Synthroid] 75 mcg PO DAILY 10/09/16 [History] RX: Pantoprazole [Protonix] 40 mg PO DAILY 10/09/16 [History] RX: Clopidogrel [Plavix] 75 mg PO DAILY 03/11/17 [History] RX: Calcium Acetate [PhosLo] 667 mg PO TID-W/MEALS cap 02/27/19 [Rx] RX: Fluticasone Nasal [place] [Flonase Nasal [place]] 1 spr EA NOSTRIL BID 02/05/22 [History] RX: Latanoprost [Latanoprost 0.005%] 1 drop BOTH EYES HS 02/05/22 [History] RX: Midodrine HCl [ProAmatine] 10 mg PO TUTHSA PRN 02/05/22 [History] RX: Torsemide [Demadex] 20 mg PO BID 02/05/22 [History] Humalog(Unknown) See Protocol SQ AC-TID 09/15/23 [History] Levemir(Unknown) 16 units SQ DIRECTED 09/15/23 [History] RX: Docusate [Colace] 100 mg PO DAILY 09/15/23 [History] RX: Ergocalciferol [Vitamin D2 (1250 Mcg = 64367 Iu)] 1,250 mcg PO TUTHSA 09/15/23 [History] RX: Famotidine 20 mg PO HS 09/15/23 [History] RX: Folic Acid/Vit B Complex and C [Rosio-Thomas Tablet] 0.8 mg PO DAILY 09/15/23 [History] RX: Pregabalin [Lyrica] 75 mg PO HS 09/15/23 [History] RX: carvediloL [Coreg] 3.125 mg PO BID 09/15/23 [History] Systane Dry Eye 1 drop BOTH EYES QID PRN 09/15/23 [History] Follow up Appointment(s)/Referral(s): Zoey Archer MD [STAFF PHYSICIAN] - 1 Week Tino Aquino MD [Primary Care Provider] - 1-2 days Patient Instructions/Handouts: Perma-cath Placement (DC) Activity/Diet/Wound Care/Special Instructions: Please see your brokerage branch manager. Discharge Disposition: HOME SELF-CARE
[2023-09-16 15:40] VITALS: BP 133/71; PULSE 85; TEMP 99.1
[2023-09-16] MEDS ORDERED: FAMOTIDINE 20 MG TAB PO SCH (21:00)
[2023-09-16] MEDS ORDERED: PREGABALIN 75 MG CAP PO SCH (21:00)
[2023-09-18] MEDS ORDERED: ERGOCALCIFEROL 1,250 MCG (50,000 IU) CAPSULE PO SCH (09:00)
== END 2023-09-16 16:56 | disposition home or self-care (01) ==
LOC: EC 11:37 → 6NMEDSUR 14:00
PROVIDERS: ADMIT Student in an Organized Health Care Education/Training Program; ATTEND Student in an Organized Health Care Education/Training Program
DX: T82.42XA Displacement of vascular dialysis catheter, initial encounter (principal); N18.6 End stage renal disease; Z99.2 Dependence on renal dialysis; E87.5 Hyperkalemia; E11.22 Type 2 diabetes mellitus with diabetic chronic kidney disease; D50.9 Iron deficiency anemia, unspecified; I12.0 Hypertensive chronic kidney disease with stage 5 chronic kidney disease or end stage renal disease; E03.9 Hypothyroidism, unspecified; K21.9 Gastro-esophageal reflux disease without esophagitis; N39.0 Urinary tract infection, site not specified; Z79.4 Long term (current) use of insulin; E11.65 Type 2 diabetes mellitus with hyperglycemia; Z96.41 Presence of insulin pump (external) (internal); Z90.710 Acquired absence of both cervix and uterus; Z89.511 Acquired absence of right leg below knee; Z83.3 Family history of diabetes mellitus; Z82.49 Family history of ischemic heart disease and other diseases of the circulatory system; Z80.0 Family history of malignant neoplasm of digestive organs; Z79.899 Other long term (current) drug therapy; Z79.02 Long term (current) use of antithrombotics/antiplatelets
CPT/HCPCS: 96372 ×4; 36415; 36583; 80053; 80048; 84100; 85025 ×2; 85610; 85730; 83036; 71045; G0378 ×2; C1750; J2250; J1644 ×3; J0690; J2405; J2001; J3010; 90935

== ENCOUNTER → 2023-10-19 | Outpatient (CLI) | payer MEDICARE ==
--- NOTE | 2023-10-19 11:29 | CT ---
EXAMINATION TYPE: CT chest w con DATE OF EXAM: 10/19/2023 COMPARISON: 02/04/2022 HISTORY: cough, lung nodule CT DLP: 498.8 mGycm Automated exposure control for dose reduction was used. TECHNIQUE: CT scan of the chest is performed with IV Contrast, patient injected with 80 mL of Isovue 300. MIP I mages are created on CT scanner and reviewed. 3D reconstructed images are created on an independent w orkstation and reviewed. FINDINGS: There is a central venous catheter on the right tip of which is in the SVC/RA junction. There is a somewhat ill-defined partially nodular and partially groundglass density in the right uppe r lobe posteriorly which is approximately 2.6 cm in size. It was seen on the prior study dated 022 and is stable. There are scattered sub-5 mm pulmonary nodules in both lungs which are stable. There is no new or olman picious lung mass or nodule. There are mild table interstitial changes in the lung bases with mild stable bronchiectasis. There is no airspace consolidation. There is no pleural effusion or pneumothorax. There is stable mild to moderate cardiomegaly. The great vessels chest are normal. There is no mediastinal, hilar or axillary adenopathy. Limited scanning through the upper abdomen reveals mild renal atrophy. There are 2 ill-defined hypoec hoic masses in the right kidney one within the upper pole and the other within the lower pole. They c annot be classified as simple renal cysts. MRI of the kidneys is recommended for further evaluation. No focal osseous lesions are seen. IMPRESSION: 1. Stable 2.6 cm ill-defined nodular/groundglass density in the right upper lobe posteriorly. 2. Stable multiple sub-5 mm pulmonary nodules. 3. Stable mild interstitial changes and bronchiectasis in the lower lobes there are 4 stable mild-to- moderate cardiomegaly. 5. Ill-defined hypodense masses in the right kidney which cannot be identified as simple cysts within certainty and therefore MRI of the kidneys is recommended for further evaluation.
== END | disposition home or self-care (01) ==
LOC: RADCTMAIN 08:44
PROVIDERS: ATTEND Family Medicine
DX: J47.9 Bronchiectasis, uncomplicated (principal); I51.7 Cardiomegaly; I10 Essential (primary) hypertension; E11.42 Type 2 diabetes mellitus with diabetic polyneuropathy; N28.89 Other specified disorders of kidney and ureter; R91.8 Other nonspecific abnormal finding of lung field; Z79.4 Long term (current) use of insulin
CPT/HCPCS: 71260; Q9967

== ENCOUNTER 2023-11-03 13:05 | Emergency (ER) | payer MEDICARE ==
--- NOTE | 2023-11-03 17:16 | ED ---
Recheck HPI - General Chief Complaint: Recheck/Abnormal Lab/Rx Stated Complaint: Cath Issues Time Seen by Provider: 11/03/23 17:15 Source: patient, RN notes reviewed Mode of arrival: ambulatory Limitations: no limitations - History of Present Illness Initial Comments: 68-year-old female presenting with chief complaint of hemodialysis catheter issues. States she cannot complete her hemodialysis today due to the catheter is clogged. States she undergoes hemodialysis Tuesdays, , and Saturdays. She was able to have hemodialysis completed on . Denies any symptoms such as chest pain, shortness of breath, tenderness to the area. - Related Data Home Medications Medication Instructions Recorded Confirmed Levothyroxine Sodium [Synthroid] 75 mcg PO DAILY 10/09/16 09/15/23 Pantoprazole [Protonix] 40 mg PO DAILY 10/09/16 09/15/23 Clopidogrel [Plavix] 75 mg PO DAILY 03/11/17 09/15/23 Fluticasone Nasal [place] [Flonase 1 spr EA NOSTRIL BID 02/05/22 09/15/23 Nasal [place]] Latanoprost [Latanoprost 0.005%] 1 drop BOTH EYES HS 02/05/22 09/15/23 Midodrine HCl [ProAmatine] 10 mg PO TUTHSA PRN 02/05/22 09/15/23 Torsemide [Demadex] 20 mg PO BID 02/05/22 09/15/23 Docusate [Colace] 100 mg PO DAILY 09/15/23 09/15/23 Ergocalciferol [Vitamin D2 (1250 1,250 mcg PO TUTHSA 09/15/23 09/15/23 Mcg = 29868 Iu)] Famotidine 20 mg PO HS 09/15/23 09/15/23 Folic Acid/Vit B Complex and C 0.8 mg PO DAILY 09/15/23 09/15/23 [Rosio-Thomas Tablet] Humalog(Unknown) See Protocol SQ AC-TID 09/15/23 09/15/23 Levemir(Unknown) 16 units SQ DIRECTED 09/15/23 09/15/23 Pregabalin [Lyrica] 75 mg PO HS 09/15/23 09/15/23 Systane Dry Eye 1 drop BOTH EYES QID PRN 09/15/23 09/15/23 carvediloL [Coreg] 3.125 mg PO BID 09/15/23 09/15/23 Previous Rx's Medication Instructions Recorded Calcium Acetate [PhosLo] 667 mg PO TID-W/MEALS cap 02/27/19 Allergies Allergy/AdvReac Type Severity Reaction Status Date / Time gabapentin Allergy Rash/Hives Verified 09/15/23 11:42 escitalopram [From Lexapro] AdvReac Hallucinati Verified 09/15/23 11:42 ons lisinopril AdvReac Cough Verified 09/15/23 11:42 morphine AdvReac Hallucinati Verified 09/15/23 11:42 ons quetiapine [From Seroquel] AdvReac Hallucinati Verified 09/15/23 11:42 ons Review of Systems ROS Statement: Those systems with pertinent positive or pertinent negative responses have been documented in the HPI. ROS Other: All systems not noted in ROS Statement are negative. Past Medical History Past Medical History: Diabetes Mellitus, Dialysis, GERD/Reflux, Hyperlipidemia, Hypertension, Memory Impairment, Renal Disease, Thyroid Disorder Additional Past Medical History / Comment(s): peritoneal dialysis daily over night. hx steel syndrome left hand-please use rt arm/hand for iv, blood draws. diabetic neuropathy and diabetic retinopathy, Rt BKA uses prosthesis. 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 neck cervical 4,5,6 fused. graft tie off 04/05/2017, eye laser surgery for diabetic retinopathy Past Anesthesia/Blood Transfusion Reactions: No Reported Reaction Past Psychological History: Anxiety, Depression Smoking Status: Never smoker Past Alcohol Use History: None Reported Past Drug Use History: None Reported - Past Family History Mother Family Medical History: Diabetes Mellitus, Hypertension Additional Family Medical History / Comment(s): colon ca Father Family Medical History: Myocardial Infarction ([place]) General Exam Limitations: no limitations General appearance: alert, in no apparent distress Head exam: Present: atraumatic, normocephalic, normal inspection Neck exam: Present: normal inspection. Absent: tenderness, meningismus, lymphadenopathy Respiratory exam: Present: normal lung sounds bilaterally. Absent: respiratory distress, wheezes, rales, rhonchi, stridor Cardiovascular Exam: Present: regular rate, normal rhythm, normal heart sounds. Absent: systolic murmur, diastolic murmur, rubs, gallop, clicks GI/Abdominal exam: Present: soft, normal bowel sounds. Absent: distended, tenderness, guarding, rebound, rigid Extremities exam: Present: normal inspection, full ROM, normal capillary refill. Absent: tenderness, pedal edema, joint swelling, calf tenderness Neurological exam: Present: alert, oriented X3 Psychiatric exam: Present: normal affect, normal mood Skin exam: Present: warm, dry, intact, normal color, other (Catheter present on right side of chest. No surrounding erythema or drainage.). Absent: rash Course Vital Signs 11/03/23 11/03/23 11/03/23 13:18 16:48 19:48 Temperature 98 F Pulse Rate 76 79 77 Respiratory 16 18 18 Rate Blood Pressure 147/76 176/96 181/85 O2 Sat by Pulse 97 99 100 Oximetry Medical Decision Making - Medical Decision Making Was pt. sent in by a medical professional or institution (, PA, CHOIRMASTER, urgent care, hospital, or detention...) When possible be specific @ -No Did you speak to anyone other than the patient for history (EMS, parent, family, police, friend...)? What history was obtained from this source @ -No Did you review nursing and triage notes (agree or disagree)? Why? @ -I reviewed and agree with nursing and triage notes Were old charts reviewed (outside hosp., previous admission, EMS record, old EKG, old radiological studies, urgent care reports/EKG's, detention records)? Report findings @ -No old charts were reviewed Differential Diagnosis (chest pain, altered mental status, abdominal pain women, abdominal pain men, vaginal bleeding, weakness, fever, dyspnea, syncope, headache, dizziness, GI bleed, back pain, seizure, CVA, palpatations, mental health, musculoskeletal)? @ -Catheter malfunction, cellulitis, abscess EKG interpreted by me (3pts min.). @ -None X-rays interpreted by me (1pt min.). @ -None done CT interpreted by me (1pt min.). @ -None done U/S interpreted by me (1pt. min.). @ -None done What testing was considered but not performed or refused? (CT, X-rays, U/S, labs)? Why? @ -None What meds were considered but not given or refused? Why? @ -None Did you discuss the management of the patient with other professionals (professionals i.e. Dr., PA, CHOIRMASTER, lab, RT, psych nurse, social welfare administrator, ironer hand, teacher, surface to air weapons officer, case fitter)? Give summary @ -I spoke with Maryann who is the on-call hemodialysis nurse. She successfully administered tPA to catheter and regain full function. She then administered course of hemodialysis. Was smoking cessation discussed for >3mins.? @ -No Was critical care preformed (if so, how long)? @ -No Were there social determinants of health that impacted care today? How? (Homelessness, low income, unemployed, alcoholism, drug addiction, transportation, low edu. Level, literacy, decrease access to med. care, retirement, rehab)? @ -No Was there de-escalation of care discussed even if they declined (Discuss DNR or withdrawal of care, Hospice)? DNR status @ -No What co-morbidities impacted this encounter? (DM, HTN, Smoking, COPD, CAD, Cancer, CVA, ARF, Chemo, Hep., AIDS, mental health diagnosis, sleep apnea, morbid obesity)? @ -None Was patient admitted / discharged? Hospital course, mention meds given and route, prescriptions, significant lab abnormalities, going to OR and other pertinent info. @ -Patient was discharged. Patient was seen and evaluated for hemodialysis catheter malfunction. Patient is asymptomatic, no sign of bacterial infection. I spoke with Maryann who is the on-call hemodialysis nurse and she successfully administered tPA to the catheter and regained full function. She then administered course of hemodialysis. Return parameters discussed. Case discussed with my attending Dr. Jones. Patient was discharged in stable condition. Undiagnosed new problem with uncertain prognosis? @ -No Drug Therapy requiring intensive monitoring for toxicity (Heparin, Nitro, Insulin, Cardizem)? @ -No Were any procedures done? @ -No Diagnosis/symptom? @ -Hemodialysis catheter malfunction Acute, or Chronic, or Acute on Chronic? @ -Acute Uncomplicated (without systemic symptoms) or Complicated (systemic symptoms)? @ -Uncomplicated Side effects of treatment? @ -No Exacerbation, Progression, or Severe Exacerbation? @ -No Poses a threat to life or bodily function? How? (Chest pain, [place], [place], pneumonia, PE, COPD, DKA, ARF, appy, cholecystitis, CVA, Diverticulitis, Homicidal, Suicidal, threat to staff... and all critical care pts) @ -No Disposition Clinical Impression: Dialysis catheter clot or failure Disposition: HOME SELF-CARE Condition: Stable Additional Instructions: Please return to the Emergency Department if symptoms worsen or any other concerns. Is patient prescribed a controlled substance at d/c from ED?: No Referrals: Tino Aquino MD [Primary Care Provider] - 1-2 days Time of Disposition: 23:01
[2023-11-03] MEDS: ALTEPLASE 2 MG VIAL (CATHFLO) MISCELLANE ONE (19:26)
[2023-11-03 23:14] VITALS: TEMP 97.5
[2023-11-03 23:21] VITALS: BP 117/59; PULSE 77; RESP 15
== END 2023-11-03 23:21 | disposition home or self-care (01) ==
LOC: EC 13:05
DX: T82.41XA Breakdown (mechanical) of vascular dialysis catheter, initial encounter (principal); Z88.5 Allergy status to narcotic agent; Z88.6 Allergy status to analgesic agent; Z88.8 Allergy status to other drugs, medicaments and biological substances; Z99.2 Dependence on renal dialysis
CPT/HCPCS: 99283; G0257; 90935

== ENCOUNTER 2023-12-20 07:30 | Day surgery (SDC) | payer MEDICARE ==
[~2023-12-20 07:30] MED LIST changes: -DEXAMETHASONE SOD PHOSPHATE 10 MG/ML 1 ML VIAL IV ONE; -HEPARIN SODIUM,PORCINE 5,000 UNIT/ML 1 ML VIAL SQ ONE; +INSULIN ASPART (NovoLOG) 100 UNIT/ML VIAL SQ ONE; -LACTATED RINGERS 1,000 ML IV SCH; +MIDAZOLAM 2 MG/2 ML VIAL ONE; -ONDANSETRON 4 MG/2 ML VIAL IVP ONE; +ONDANSETRON 4 MG/2 ML VIAL ONE; +ROPIVACAINE 5 MG/ML 30 ML VIAL ONE; -ceFAZolin IN SWFI 2 GM/20 ML SYRINGE IVP ONE; +fentaNYL (PF) 50 MCG/ML 2 ML AMP ONE
[2023-12-20] MEDS ORDERED: ceFAZolin 1,000 MG VIAL ONE (07:40)
[2023-12-20] MEDS ORDERED: LIDOCAINE 1% INJ 10MG/ML (20 ML MDV) ONE (07:40)
[2023-12-20] MEDS ORDERED: SODIUM CHLORIDE 0.9% 1,000 ML BAG ONE (07:40)
[2023-12-20] MEDS ORDERED: PHENYLEPHRINE-0.9% NACL SYG 1,000 MCG/10 ML SYRINGE ONE (07:41)
[2023-12-20] MEDS ORDERED: KETAMINE HCL IN 0.9 % NACL 50 MG/5 ML SYRINGE ONE (07:41)
[2023-12-20] MEDS ORDERED: HEPARIN SODIUM,PORCINE 5,000 UNIT/ML 1 ML VIAL ONE (07:41)
[2023-12-20] MEDS ORDERED: fentaNYL (PF) 50 MCG/ML 2 ML AMP ONE (07:41)
[2023-12-20] MEDS ORDERED: MIDAZOLAM 2 MG/2 ML VIAL ONE (07:41)
[2023-12-20] MEDS ORDERED: PROPOFOL 10 MG/ML 20 ML VIAL IV ONE (07:41)
--- NOTE | 2024-01-24 14:45 | OP ---
OPERATIVE REPORT DATE OF SERVICE : PREOPERATIVE DIAGNOSIS: End-stage renal disease. POSTOPERATIVE DIAGNOSIS: End-stage renal disease. PROCEDURE: Right upper extremity loop forearm graft creation. SPECIMENS: None. ESTIMATED BLOOD LOSS: 15 cc. COMPLICATIONS: None. CONDITION: Stable to Recovery. CLINICAL NOTE AND INDICATIONS: The patient is here today for a loop forearm graft in her right upper extremity. She has previously had access in her left upper extremity and subsequently did develop steal syndrome, requiring a DRIL procedure and ligation of her graft. She has been getting dialysis via a tunneled catheter in her chest wall for the past many years and is here today for graft creation in her right upper extremity due to vessel size. Risks and benefits were discussed. She understood and is willing to proceed. DESCRIPTION OF PROCEDURE: The patient was taken to the operative suite and placed in supine position. The right upper extremity was prepped and draped in usual sterile fashion. A preprocedure time- out was performed, and all parties were in agreement. Using the ultrasound, the brachial artery at the antecubital space as well as veins were identified. An incision was made transversely and carried down to the subcutaneous tissue. The largest appearing vein in the area did appear to be the cephalic vein which on ultrasound imaging did have a perforating vessel to the deep system. The dissection was carried further to the level of the brachial artery. It was encircled proximally and distally as well as the vein itself. At this point, a counterincision was made at the apex of the proposed graft loop, and the 4 x 7 graft was tunneled in appropriate fashion. The patient was then heparinized. Flow was occluded through the artery. An arteriotomy was made, and the graft was cut to size. An anastomosis was created with 6-0 Prolene. Prior to conclusion of the anastomosis, the artery was allowed to forward and backbleed. The anastomosis was finished, and the flow through the brachial artery was resumed. Attention was then turned toward the outflow anastomosis. A venotomy was performed. The graft was cut to size and an anastomosis was created with 6-0 Prolene. Prior to conclusion, the vein was allowed to back and forward bleed as well as the graft itself. The anastomosis was completed. Hemostasis was ensured with interrupted sutures of 6-0 Prolene. Both sites were copiously irrigated with antibiotic solution. There was an adequate pulse in the radial artery at the wrist with adequate appearing Doppler flow proximal and distal to both anastomosis. Attention was then turned toward closure at both sites. The deep dermal tissues were reapproximated with interrupted sutures of 3-0 Vicryl. The skin was reapproximated with running 4-0 Monocryl in subcuticular fashion. Skin glue and dressings were placed. The patient tolerated the procedure well and was transported back to Recovery in stable condition. Discharge instructions are given, and the patient will be planning on going home today. MMODL / IJN: [id number] /
== END 2023-12-20 11:10 ==
LOC: OR 07:30
PROVIDERS: ATTEND Surgery
DX: I12.0 Hypertensive chronic kidney disease with stage 5 chronic kidney disease or end stage renal disease (principal); E11.22 Type 2 diabetes mellitus with diabetic chronic kidney disease; N18.6 End stage renal disease; Z88.8 Allergy status to other drugs, medicaments and biological substances; Z88.6 Allergy status to analgesic agent; Z87.891 Personal history of nicotine dependence

== ENCOUNTER → 2024-01-11 | Outpatient (CLI) | payer MEDICARE ==
[2024-01-11 15:11] LABS: Chol/HDL Ratio 4.31 Ratio; LDL Cholesterol,Calculated 123.6 mg/dL (0.0-131.0)
[2024-01-11 15:59] LABS: ALT 9 U/L (8-44); AST 12 U/L (13-35); Albumin 3.8 g/dL (3.8-4.9); Albumin/Globulin Ratio 1.52 Ratio (1.60-3.17); Alkaline Phosphatase 79 U/L (41-126); Blood Urea Nitrogen 29.1 mg/dL (9.0-27.0); Calcium 9.2 mg/dL (8.7-10.3); Carbon Dioxide 28.2 mmol/L (21.6-31.8); Chloride 98 mmol/L (96-109); Globulin 2.5 g/dL (1.6-3.3); Glucose 303 mg/dL (70-110); Potassium 4.4 mmol/L (3.5-5.5); Sodium 140 mmol/L (135-145); Total Bilirubin 0.3 mg/dL (0.3-1.2); Total Protein 6.3 g/dL (6.2-8.2)
== END ==
LOC: LABWHC1 10:44
PROVIDERS: ATTEND Internal Medicine Endocrinology, Diabetes & Metabolism
DX: E11.65 Type 2 diabetes mellitus with hyperglycemia (principal)
CPT/HCPCS: 36415; 80053; 80061; 83036; 84443

== ENCOUNTER → 2024-02-22 | Outpatient (CLI) | payer MEDICARE ==
--- NOTE | 2024-02-24 10:31 | CT ---
EXAMINATION TYPE: CT abdomen pelvis w con DATE OF EXAM: 02/22/2024 COMPARISON: 02/05/2022 HISTORY: 68-year-old female N18.6 END STG RENAL DIS, Z76.82 AWAITING TRANSPLANT TECHNIQUE: Contiguous axial scanning of the abdomen and pelvis following administration of 80 ml Isov ue-370 IV contrast. Delayed images through the kidneys and coronal/sagittal reconstructions performe d. CT DLP: 2425.4 mGycm Automated exposure control for dose reduction was used. FINDINGS: Heart borderline enlarged without pericardial effusion. Some interstitial and patchy changes at the p osterior lung bases probably atelectasis. There may be some concurrent underlying interstitial fibros is. Tiny hiatal hernia. The liver is borderline enlarged at 17.4 cm. No focal lesions seen. Portal venous system is patent. N o biliary ductal dilatation. Gallbladder, adrenal glands, spleen, and pancreas show no gross organomegaly. Bilateral renal cortical cysts measuring up to 2.0 cm. A few nonobstructive right renal calculi measu ring up to 3 mm. No excretion of contrast on the delayed phase in keeping with patient's chronic kidn ey disease. [id number] atherosclerotic calcifications infrarenal abdominal aorta and internal iliac arterie s. No dilated small bowel, free fluid, or free air. No mesenteric or retroperitoneal lymphadenopathy. Normal appendix. Moderate stool burden. Proximal sigmoid diverticulosis. No pericolic inflammatory change. Bladder is collapsed. Right ovary is visualized. Left ovary not clearly identified. No abnormal fluid collection in the pelvis or pelvic lymphadenopathy. Bones: Mild degenerative change of the hips. Facet arthropathy lower lumbar spine. IMPRESSION: 1. BILATERAL RENAL CORTICAL CYSTS MEASURING UP TO 2.0 CM. 2. A few punctate 3 mm right renal calculi. 3. No excretion of contrast from either kidney on the delayed scan. Findings in keeping with patient' s end-stage kidney disease. 4. Tiny hiatal hernia, borderline liver size, and mild proximal sigmoid diverticulosis. [facility], , 02/24/2024 10:29 AM
== END | disposition home or self-care (01) ==
LOC: RADCTMAIN 15:16
PROVIDERS: ATTEND Internal Medicine Nephrology
CPT/HCPCS: 74177

== ENCOUNTER 2024-04-28 12:06 | Observation (INO) | payer MEDICARE ==
--- NOTE | 2024-04-28 12:32 | ED ---
Recheck HPI - General Source: patient, RN notes reviewed Mode of arrival: wheelchair Limitations: no limitations <Nicolasa Huggins - Last Filed: 04/28/24 12:25> <Ana Jordan - Last Filed: 04/30/24 17:53> - General Chief Complaint: Recheck/Abnormal Lab/Rx Stated Complaint: Dialysis complications, eye irritation Time Seen by Provider: 04/28/24 12:20 - History of Present Illness Initial Comments: Quick Note: This is a 68-year-old female who presents to the emergency department for problems with her dialysis port. Patient is on hemodialysis and went for her session today, however her dialysis port was not working and they were unable to perform the dialysis. She was sent here for further evaluation and management. States that she has also had drainage from her eyes for the last week. Her eyes are itchy and blurry. (Nicolasa Huggins) 68-year-old female who presents to the emergency department having issues with her dialysis graft. Patient has a loop graft in her right extremity. Patient typically goes Sunday, and Sunday. Because of the holiday her schedule has changed to Sunday, Sunday and . She had her dialysis done on Sunday. Today she went and they stated that her graft was not functioning. They cannulated her once and then sent her to the hospital. She has no other access available. Patient recently had graft performed in November by Dr. Woodson. (Ana Jordan) - Related Data Home Medications Medication Instructions Recorded Confirmed Levothyroxine Sodium [Synthroid] 75 mcg PO DAILY 10/09/16 04/28/24 Latanoprost [Latanoprost 0.005%] 1 drop BOTH EYES HS 02/05/22 04/28/24 Torsemide [Demadex] 20 mg PO BID 02/05/22 04/28/24 Folic Acid/Vit B Complex and C 0.8 mg PO DAILY 09/15/23 04/28/24 [Rosio-Thomas Tablet] Pregabalin [Lyrica] 75 mg PO DAILY 09/15/23 04/28/24 Systane Dry Eye 1 drop BOTH EYES QID PRN 09/15/23 04/28/24 carvediloL [Coreg] 3.125 mg PO BID 09/15/23 04/28/24 Insulin Aspart (Niacinamide) See Protocol SQ AC-TID 04/28/24 04/28/24 [Fiasp 100 Unit/ml Flextouch Pen] Insulin Glargine,Hum.rec.anlog 14 unit SQ DAILY 04/28/24 04/28/24 [Basaglar Kwikpen U-100] glipiZIDE [Glucotrol] 5 mg PO DAILY 04/28/24 04/28/24 Previous Rx's Medication Instructions Recorded Calcium Acetate [PhosLo] 667 mg PO TID-W/MEALS cap 02/27/19 Allergies Allergy/AdvReac Type Severity Reaction Status Date / Time gabapentin Allergy Rash/Hives Verified 04/28/24 19:42 escitalopram [From Lexapro] AdvReac Hallucinati Verified 04/28/24 19:42 ons lisinopril AdvReac Cough Verified 04/28/24 19:42 morphine AdvReac Hallucinati Verified 04/28/24 19:42 ons quetiapine [From Seroquel] AdvReac Hallucinati Verified 04/28/24 19:42 ons Review of Systems ROS Other: All systems not noted in ROS Statement are negative. <Nicolasa Huggins - Last Filed: 04/28/24 12:25> ROS Other: All systems not noted in ROS Statement are negative. <Ana Jordan - Last Filed: 04/30/24 17:53> ROS Statement: Those systems with pertinent positive or pertinent negative responses have been documented in the HPI. Past Medical History Past Medical History: Diabetes Mellitus, Dialysis, GERD/Reflux, Hyperlipidemia, Hypertension, Memory Impairment, Renal Disease, Thyroid Disorder Additional Past Medical History / Comment(s): peritoneal dialysis daily over night. hx steel syndrome left hand-please use rt arm/hand for iv, blood draws. diabetic neuropathy and diabetic retinopathy, Rt BKA uses prosthesis. 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 neck cervical 4,5,6 fused. graft tie off 04/05/2017, eye laser surgery for diabetic retinopathy Past Anesthesia/Blood Transfusion Reactions: No Reported Reaction Past Psychological History: Anxiety, Depression Smoking Status: Never smoker Past Alcohol Use History: None Reported Past Drug Use History: None Reported - Past Family History Mother Family Medical History: Diabetes Mellitus, Hypertension Additional Family Medical History / Comment(s): colon ca Father Family Medical History: Myocardial Infarction (ID) <Nicolasa Huggins - Last Filed: 04/28/24 12:25> General Exam Limitations: no limitations <Nicolasa Huggins - Last Filed: 04/28/24 12:25> General appearance: alert, in no apparent distress Head exam: Present: atraumatic, normocephalic, normal inspection Eye exam: Present: normal appearance, PERRL, EOMI. Absent: scleral icterus, conjunctival injection, periorbital swelling ENT exam: Present: normal exam, mucous membranes moist Neck exam: Present: normal inspection. Absent: tenderness, meningismus, lymphadenopathy Respiratory exam: Present: normal lung sounds bilaterally. Absent: respiratory distress, wheezes, rales, rhonchi, stridor Cardiovascular Exam: Present: regular rate, normal rhythm, normal heart sounds. Absent: systolic murmur, diastolic murmur, rubs, gallop, clicks GI/Abdominal exam: Present: soft, normal bowel sounds. Absent: distended, tenderness, guarding, rebound, rigid Extremities exam: Present: full ROM, normal capillary refill, other (No palpable thrill from the right graft). Absent: tenderness, pedal edema, joint swelling, calf tenderness Back exam: Present: normal inspection Neurological exam: Present: alert, oriented X3, CN II-XII intact Psychiatric exam: Present: normal affect, normal mood Skin exam: Present: warm, dry, intact, normal color. Absent: rash <Ana Jordan - Last Filed: 04/30/24 17:53> - General Exam Comments Initial Comments: Visual Physical Exam Vital signs reviewed General: Well-appearing, nontoxic, no acute distress. Head: Normocephalic, atraumatic Eyes: PERRLA, EOMI ENT: Airway patent Chest: Nonlabored breathing Skin: No visual rash, normal skin tone Neuro: Alert and oriented 3 Musculoskeletal: No gross abnormalities (Nicolasa Huggins) Course Vital Signs 04/28/24 04/28/24 04/28/24 12:09 18:04 20:31 Temperature 98.7 F 98.1 F 98.0 F Pulse Rate 83 82 76 Respiratory 18 18 16 Rate Blood Pressure 150/86 171/84 144/82 O2 Sat by Pulse 96 93 L 96 Oximetry Medical Decision Making <Nicolasa Huggins - Last Filed: 04/28/24 12:25> - Lab Data Result diagrams: 04/30/24 03:31 04/30/24 03:31 <Ana Jordan - Last Filed: 04/30/24 17:53> - Medical Decision Making I performed the QuickNote portion of this chart. Signed Nicolasa Huggins PA-C. (Nicolasa Huggins) Was pt. sent in by a medical professional or institution ([facility], [employer], urgent care, hospital, or detention...) When possible be specific @ -Patient sent in from her dialysis clinic did you speak to anyone other than the patient for history (EMS, parent, family, police, friend...)? What history was obtained from this source @ -No Did you review nursing and triage notes (agree or disagree)? Why? @ -I reviewed and agree with nursing and triage notes Were old charts reviewed (outside hosp., previous admission, EMS record, old EKG, old radiological studies, urgent care reports/EKG's, detention records)? Report findings @ -I reviewed the procedure note from November by Dr. Woodson where the loop graft was placed Differential Diagnosis (chest pain, altered mental status, abdominal pain women, abdominal pain men, vaginal bleeding, weakness, fever, dyspnea, syncope, headache, dizziness, GI bleed, back pain, seizure, CVA, palpatations, mental health, musculoskeletal)? @ -Thrombosed graft EKG interpreted by me (3pts min.). @ -Not done X-rays interpreted by me (1pt min.). @ -None done CT interpreted by me (1pt min.). @ -None done U/S interpreted by me (1pt. min.). @ -Yes and demonstrates a thrombosed graft What testing was considered but not performed or refused? (CT, X-rays, U/S, labs)? Why? @ -None What meds were considered but not given or refused? Why? @ -None Did you discuss the management of the patient with other professionals (professionals i.e. , PA, [employer], lab, RT, psych nurse, community mental health social worker, derrick engineer, teacher, ammunition officer, case briefer)? Give summary @ -Spoke with Dr. Augustine for admission. Spoke with Dr. Smith from vascular Was smoking cessation discussed for >3mins.? @ -No Was critical care preformed (if so, how long)? @ -No Were there social determinants of health that impacted care today? How? (Homelessness, low income, unemployed, alcoholism, drug addiction, transportation, low edu. Level, literacy, decrease access to med. care, long term, rehab)? @ -No Was there de-escalation of care discussed even if they declined (Discuss DNR or withdrawal of care, Hospice)? DNR status @ -No What co-morbidities impacted this encounter? (DM, HTN, Smoking, COPD, CAD, Cancer, CVA, ARF, Chemo, Hep., AIDS, mental health diagnosis, sleep apnea, morbid obesity)? @ -End-stage renal disease on hemodialysis Was patient admitted / discharged? Hospital course, mention meds given and route, prescriptions, significant lab abnormalities, going to OR and other pertinent info. @ -Upon arrival patient seen and evaluated in bed 29. Thorough history and physical exam was performed. There is no palpable thrill from the patient's graft. I do complete laboratory studies. Ultrasound confirmed that the loop graft is clotted. I did call and speak with Dr. Smith. Recommends admission, n.p.o. at midnight for intervention tomorrow. I will consult nephrology. Patient admitted to Dr. Augustine Undiagnosed new problem with uncertain prognosis? @ -No Drug Therapy requiring intensive monitoring for toxicity (Heparin, Nitro, Insulin, Cardizem)? @ -No Were any procedures done? @ -No Diagnosis/symptom? @ -Acute thrombosed loop graft right upper extremity, history of end-stage renal disease on hemodialysis Acute, or Chronic, or Acute on Chronic? @ -Acute Uncomplicated (without systemic symptoms) or Complicated (systemic symptoms)? @ -Complicated Side effects of treatment? @ -No Exacerbation, Progression, or Severe Exacerbation? @ -No Poses a threat to life or bodily function? How? (Chest pain, USA, ID, pneumonia, PE, COPD, DKA, ARF, appy, cholecystitis, CVA, Diverticulitis, Homicidal, Danna cidal, threat to staff... and all critical care pts) @ -No (Ana Jordan) - Lab Data Lab Results 04/28/24 04/28/24 04/28/24 Range/Units 13:59 16:32 16:32 WBC 5.6 (3.8-10.6) k/uL RBC 3.46 L (3.80-5.40) m/uL Hgb 11.1 L (11.4-16.0) gm/dL Hct 35.1 (34.0-46.0) % MCV 101.4 H (80.0-100.0) fL MCH 32.0 (25.0-35.0) pg MCHC 31.6 (31.0-37.0) g/dL RDW 15.5 (11.5-15.5) % Plt Count 165 (150-450) k/uL MPV 10.3 Neutrophils % 68 % Lymphocytes % 21 % Monocytes % 5 % Eosinophils % 3 % Basophils % 1 % Neutrophils # 3.8 (1.3-7.7) k/uL Lymphocytes # 1.2 (1.0-4.8) k/uL Monocytes # 0.3 (0-1.0) k/uL Eosinophils # 0.2 (0-0.7) k/uL Basophils # 0.0 (0-0.2) k/uL Hypochromasia Slight Macrocytosis Slight Sodium 138 (137-145) mmol/L Potassium 5.7 H (3.5-5.1) mmol/L Chloride 94 L (98-107) mmol/L Carbon Dioxide 35 H (22-30) mmol/L Anion Gap 9 mmol/L BUN 52 H (7-17) mg/dL Creatinine 10.13 H* (0.52-1.04) mg/dL Est GFR (CKD-EPI)AfAm 4 (>60 ml/min/1.73 sqM) Est GFR (CKD-EPI)NonAf 3 (>60 ml/min/1.73 sqM) Glucose 288 H (74-99) mg/dL Calcium 8.8 (8.4-10.2) mg/dL Phosphorus 5.1 H (2.5-4.5) mg/dL Magnesium 2.2 (1.6-2.3) mg/dL Total Bilirubin 0.5 (0.2-1.3) mg/dL AST 19 (14-36) U/L ALT 12 (4-34) U/L Alkaline Phosphatase 97 (38-126) U/L Total Protein 6.2 L (6.3-8.2) g/dL Albumin 3.5 (3.5-5.0) g/dL Influenza Type A (PCR) Not Detected (Not Detectd) Influenza Type B (PCR) Not Detected (Not Detectd) RSV (PCR) Not Detected (Not Detectd) SARS-CoV-2 (PCR) Not Detected (Not Detectd) Disposition <Nicolasa Huggins - Last Filed: 04/28/24 12:25> Is patient prescribed a controlled substance at d/c from ED?: No Time of Disposition: 18:27 Decision to Admit Reason: Admit from EC Decision Date: 04/28/24 Decision Time: 18:27 <Ana Jordan - Last Filed: 04/30/24 17:53> Clinical Impression: ESRD (end stage renal disease) on dialysis, AV graft thrombosis Disposition: ADMITTED IP TO THIS [facility] Condition: Stable
[2024-04-28] MEDS: FLUORESCEIN STRIPS 1 MG STRIP BOTH EYES ONE (16:22)
[2024-04-28 16:41] LABS: Basophils % (A) 1 %; Eosinophils # (A) 0.2 k/uL (0-0.7); Eosinophils % (A) 3 %; HCT 35.1 % (34.0-46.0); HGB 11.1 gm/dL (11.4-16.0); Hypochromasia Slight; Lymphocytes # (A) 1.2 k/uL (1.0-4.8); Lymphocytes % (A) 21 %; MCHC 31.6 g/dL (31.0-37.0); MCV 101.4 fL (80.0-100.0); Macrocytosis Slight; Mean Platelet Volume 10.3; Monocytes # (A) 0.3 k/uL (0-1.0); Monocytes % (A) 5 %; Neutrophils # (A) 3.8 k/uL (1.3-7.7); Neutrophils % (A) 68 %; Platelet Count 165 k/uL (150-450); RBC 3.46 m/uL (3.80-5.40); RDW 15.5 % (11.5-15.5); WBC 5.6 k/uL (3.8-10.6)
--- NOTE | 2024-04-28 17:10 | US ---
EXAMINATION TYPE: US dplx aort/vc/iliac/graft RT DATE OF EXAM: 04/28/2024 COMPARISON: NONE CLINICAL INDICATION: Female, 68 years old with history of right arm loop graft for patency; Right forearm dialysis graft TECHNIQUE: Real-time linear array sonography FINDINGS: The AV graft appears thrombosed from it's origin at the right AC fossa throughout the right anterior forearm. IMPRESSION: Occlusion of AV graft right forearm [facility], , 04/28/2024 5:08 PM ANNA
[2024-04-28 17:11] LABS: ALT 12 U/L (4-34); AST 19 U/L (14-36); African American GFR (CKD) 4 (>60 ml/min/1.73 sqM); Albumin 3.5 g/dL (3.5-5.0); Alkaline Phosphatase 97 U/L (38-126); Anion Gap 9 mmol/L; Blood Urea Nitrogen 52 mg/dL (7-17); Calcium 8.8 mg/dL (8.4-10.2); Carbon Dioxide 35 mmol/L (22-30); Chloride 94 mmol/L (98-107); Glucose 288 mg/dL (74-99); Magnesium 2.2 mg/dL (1.6-2.3); Non-African American GFR(CKD) 3 (>60 ml/min/1.73 sqM); Phosphorus 5.1 mg/dL (2.5-4.5); Potassium 5.7 mmol/L (3.5-5.1); Sodium 138 mmol/L (137-145); Total Bilirubin 0.5 mg/dL (0.2-1.3); Total Protein 6.2 g/dL (6.3-8.2)
[2024-04-28] MEDS ORDERED: NALOXONE 0.4 MG/ML 1 ML VIAL IV PRN (17:35)
[2024-04-28] MEDS ORDERED: DEXTROSE 50% SYRINGE 50 ML IVP PRN ×2 (17:41)
[2024-04-28] MEDS: SODIUM ZIRCONIUM CYCLOSILICATE 10 GM PACKET PO ONE (17:58)
--- NOTE | 2024-04-28 18:00 | P.HPIM ---
History of Present Illness H&P Date: 04/28/24 Patient is a 68-year-old female with history of ESRD on hemodialysis presenting with dialysis access issues. She has a history of hypertension, hypothyroidism, type 2 diabetes on insulin, GERD.patient denies any new symptoms. She denies any shortness of breath, chest pain, abdominal pain, nausea, vomiting, or bowel complaints. She makes very little urine. Denies any fevers, chills, travel history or sick contacts. In the ED, temperature was 98.7, pulse 83, respiratory rate 18, blood pressure 150/86, saturating at 96% on room air. WBC 5.6, hemoglobin 11.1, around baseline, potassium 5.7, bicarb 35, creatinine 10.13, phosphorus 5.1. Pertinent positives and negatives as discussed in HPI, a complete review of systems was performed and all other systems are negative. Patient seen and examined at bedside. Vital signs reviewed General: nontoxic, no distress, appears at stated age, obese Derm: warm, dry Head: atraumatic, normocephalic, symmetric Eyes: EOMI, no lid lag, anicteric sclera, pupils equal round reactive to light ENT: Nose and ears atraumatic Neck: No thyromegaly, supple Mouth: no lip lesion, mucus membranes moist Cardiovascular: S1S2 reg, no murmur, right arm fistula with no thrill or bruit Lungs: clear to auscultation bilateral, no rhonchi, no rales, no wheeze, no accessory muscle use Abdominal: soft, nontender to palpation, no guarding, no appreciable o rganomegaly Ext: no gross muscle atrophy, muscle strength muscle strength 5 out of 5 in all 4 extremities, no contractures Neuro: CN II-XII grossly intact Psych: Alert, oriented, appropriate affect Assessment/Plan: Active: Malfunctioning AV fistula ESRD on hemodialysis Hyperkalemia -Vascular surgery consulted, n.p.o. after midnight -Nephrology consulted for dialysis -Lokelma 10 g p.o. once -Repeat CMP tomorrow Insulin-dependent diabetes -Sliding scale insulin, monitor for hypoglycemia -Uses Levemir in the morning, restart once patient is able to start a diet Chronic: Hypertension Hypothyroidism GERD Neuropathy Restart home medications once reconciled by pharmacy The patient is admitted with an anticipated less than 2 midnight stay as observation status for evaluation of malfunctioning AV fistula. Surrogate decision-maker: Sibling CODE STATUS: Full code DVT prophylaxis: Subcu heparin Anticipated discharge date: Possibly tomorrow Anticipated discharge place: Home A total of 55 minutes was spent on the care of this complex patient more than 50% of the time was spent in counseling and care coordination. Past Medical History Past Medical History: Diabetes Mellitus, Dialysis, GERD/Reflux, Hyperlipidemia, Hypertension, Memory Impairment, Renal Disease, Thyroid Disorder Additional Past Medical History / Comment(s): peritoneal dialysis daily over night. hx steel syndrome left hand-please use rt arm/hand for iv, blood draws. diabetic neuropathy and diabetic retinopathy, Rt BKA uses prosthesis. Left heel wound History of Any Multi-Drug Resistant Organisms: ESBL, MRSA, Other MDRO, VRE Date of last positivie culture/infection: 08/26/19 VRE/ 06/09/19 ESBL MRSA MDRO Source:: VRE URINE MRSA FOOT ESBL FOOT Past Surgical History: Back Surgery, Hysterectomy Additional Past Surgical History / Comment(s): RBKA 01/23/16 R/T DM. neck cervical 4,5,6 fused. graft tie off 04/05/2017, eye laser surgery for diabetic retinopathy Past Anesthesia/Blood Transfusion Reactions: No Reported Reaction Past Psychological History: Anxiety, Depression Smoking Status: Never smoker Past Alcohol Use History: None Reported Past Drug Use History: None Reported - Past Family History Mother Family Medical History: Diabetes Mellitus, Hypertension Additional Family Medical History / Comment(s): colon ca Father Family Medical History: Myocardial Infarction (NM) Medications and Allergies Home Medications Medication Instructions Recorded Confirmed Type Levothyroxine Sodium [Synthroid] 75 mcg PO DAILY 10/09/16 09/15/23 History Pantoprazole [Protonix] 40 mg PO DAILY 10/09/16 09/15/23 History Clopidogrel [Plavix] 75 mg PO DAILY 03/11/17 09/15/23 History Calcium Acetate [PhosLo] 667 mg PO TID-W/MEALS cap 02/27/19 09/15/23 Rx Fluticasone Nasal [place] [Flonase 1 spr EA NOSTRIL BID 02/05/22 09/15/23 History Nasal [place]] Latanoprost [Latanoprost 0.005%] 1 drop BOTH EYES HS 02/05/22 09/15/23 History Midodrine HCl [ProAmatine] 10 mg PO TUTHSA PRN 02/05/22 09/15/23 History Torsemide [Demadex] 20 mg PO BID 02/05/22 09/15/23 History Docusate [Colace] 100 mg PO DAILY 09/15/23 09/15/23 History Ergocalciferol [Vitamin D2 (1250 1,250 mcg PO TUTHSA 09/15/23 09/15/23 History Mcg = [id number] Iu)] Famotidine 20 mg PO HS 09/15/23 09/15/23 History Folic Acid/Vit B Complex and C 0.8 mg PO DAILY 09/15/23 09/15/23 History [Rosio-Thomas Tablet] Humalog(Unknown) See Protocol SQ AC-TID 09/15/23 09/15/23 History Levemir(Unknown) 16 units SQ DIRECTED 09/15/23 09/15/23 History Pregabalin [Lyrica] 75 mg PO HS 09/15/23 09/15/23 History Systane Dry Eye 1 drop BOTH EYES QID PRN 09/15/23 09/15/23 History carvediloL [Coreg] 3.125 mg PO BID 09/15/23 09/15/23 History Allergies Allergy/AdvReac Type Severity Reaction Status Date / Time gabapentin Allergy Rash/Hives Verified 04/28/24 12:13 escitalopram [From Lexapro] AdvReac Hallucinati Verified 04/28/24 12:13 ons lisinopril AdvReac Cough Verified 04/28/24 12:13 morphine AdvReac Hallucinati Verified 04/28/24 12:13 ons quetiapine [From Seroquel] AdvReac Hallucinati Verified 04/28/24 12:13 ons Physical Exam Vitals: Vital Signs Temp Pulse Resp BP Pulse Ox 04/28/24 12:09 98.7 F 83 18 150/86 96 Intake and Output 04/28/24 04/28/24 04/28/24 06:59 14:59 22:59 Other: Weight 100.244 kg Results CBC & Chem 7: 04/28/24 16:32 04/28/24 16:32 Labs: Abnormal Lab Results - Last 24 Hours (Table) 04/28/24 04/28/24 Range/Units 16:32 16:32 RBC 3.46 L (3.80-5.40) m/uL Hgb 11.1 L (11.4-16.0) gm/dL MCV 101.4 H (80.0-100.0) fL Potassium 5.7 H (3.5-5.1) mmol/L Chloride 94 L (98-107) mmol/L Carbon Dioxide 35 H (22-30) mmol/L BUN 52 H (7-17) mg/dL Creatinine 10.13 H* (0.52-1.04) mg/dL Glucose 288 H (74-99) mg/dL Phosphorus 5.1 H (2.5-4.5) mg/dL Total Protein 6.2 L (6.3-8.2) g/dL
[2024-04-28 18:12] LABS: Glucose,Whole Blood 332 mg/dL (70-110)
[2024-04-28] MEDS: INSULIN ASPART (NovoLOG) 100 UNIT/ML VIAL SQ SCH (18:15)
[2024-04-28] MEDS: HEPARIN SODIUM,PORCINE 5,000 UNIT/ML 1 ML VIAL SQ SCH (23:16)
[2024-04-29 06:51] LABS: Glucose,Whole Blood 259 mg/dL (70-110)
[2024-04-29 08:47] LABS: ALT 10 U/L (8-44); AST 15 U/L (13-35); Albumin 3.4 g/dL (3.8-4.9); Albumin/Globulin Ratio 1.42 Ratio (1.60-3.17); Alkaline Phosphatase 78 U/L (41-126); BUN/Creat Ratio 4.74 Ratio (12.00-20.00); Blood Urea Nitrogen 48.3 mg/dL (9.0-27.0); Calcium 8.6 mg/dL (8.7-10.3); Carbon Dioxide 29.1 mmol/L (21.6-31.8); Chloride 96 mmol/L (96-109); Globulin 2.4 g/dL (1.6-3.3); Glucose 170 mg/dL (70-110); Magnesium 2.3 mg/dL (1.5-2.4); Sodium 141 mmol/L (135-145); Total Bilirubin 0.2 mg/dL (0.3-1.2); Total Protein 5.8 g/dL (6.2-8.2)
[2024-04-29 09:09] LABS: Basophils # (A) 0.06 X 10*3/uL (0.00-0.10); Basophils % (A) 1.1 %; Eosinophils # (A) 0.25 X 10*3/uL (0.04-0.35); Eosinophils % (A) 4.6 %; HCT 31.3 % (37.2-46.3); HGB 10.1 g/dL (12.0-15.0); Lymphocytes # (A) 1.22 X 10*3/uL (0.90-5.00); Lymphocytes % (A) 22.2 %; MCH 31.9 pg (27.0-32.0); MCHC 32.3 g/dL (32.0-37.0); MCV 98.7 FL (80.0-97.0); Monocytes # (A) 0.42 X 10*3/uL (0.20-1.00); Monocytes % (A) 7.7 %; NRBC Per 100 WBC 0 X 10*3/uL (0.00-0.01); Neutrophils # (A) 3.53 X 10*3/uL (1.80-7.70); Neutrophils % (A) 64.2 %; Platelet Count 153 X 10*3/uL (140-440); RBC 3.17 X 10*6/uL (4.10-5.20); RDW 15.8 % (11.5-14.5); WBC 5.49 X 10*3/uL (4.50-10.00)
[2024-04-29] MEDS: MIDAZOLAM 2 MG/2 ML VIAL IVP ONE (10:49)
[2024-04-29] MEDS: LIDOCAINE 1% INJ 10MG/ML (20 ML MDV) SQ ONE ×2 (10:51→11:37)
[2024-04-29] MEDS: IOPAMIDOL-250 100ML BTL INTRAARTER ONE (11:24)
[2024-04-29] MEDS: fentaNYL (PF) 50 MCG/ML 2 ML AMP IVP ONE (12:14)
[2024-04-29 12:28] LABS: Glucose,Whole Blood 105 mg/dL (70-110)
--- NOTE | 2024-04-29 12:42 | IR ---
EXAMINATION TYPE: IR cvc insert central tunneled DATE OF EXAM: 04/29/2024 FLUOROSCOPY Dialysis, 7.2m/2.58DAP, Rt IJ 14.5F x 19cm ST Palindrome denilson 328 images are submitted. [facility], , 04/29/2024 12:39 PM
--- NOTE | 2024-04-29 13:02 | P.OP ---
Date of Procedure: 04/29/24 Preoperative Diagnosis: Thrombosed right upper extremity AV graft graft. Chronic kidney disease, hemodialysis dependent (stage V). Postoperative Diagnosis: Same plus inability to salvage dialysis graft secondary to very poor outflow vessels. Procedure(s) Performed: 1: Ultrasound-guided cannulation of AV graft x 2. 2: Fistulogram. 3: Balloon dilation AV graft. 4: Ultrasound and fluoroscopically guided placement of a tunneled hemodialysis catheter via the right internal jugular vein approach. Anesthesia: local (1% Xylocaine) Surgeon: Ulysses Hernandez Estimated Blood Loss (ml): 20 Pathology: none sent Condition: stable Disposition: no change Indications for Procedure: Mrs. Cedillo is a 68-year-old hemodialysis dependent patient who was found to be suffering from a thrombosed right upper extremity AV graft. This was thought to be amenable to percutaneous thrombectomy and reestablishment of dialysis access. The procedure, risk and benefits were discussed with the patient. All questions were answered. Consent form was signed. Description of Procedure: Patient was brought to the cardiac catheterization lab. Right upper extremity was sterilely prepped and draped in usual manner. 1% Xylocaine was utilized for local anesthesia of the tissues overlying the graft. With the aid of ultrasound a micropuncture needle was advanced through the anesthetized area into the graft and an antegrade direction. The needle was withdrawn and a micropuncture sheath and dilator were advanced over the guidewire. Guidewire and dilator were withdrawn and a 0.035 inch braided guidewire was advanced into the graft in an antegrade direction. The sheath was withdrawn and a 6 [place] sheath was placed over the guidewire. A similar procedure was performed with placement of sheath in the retrograde direction of flow. Fistulogram was performed which demonstrated some proximal graft stenosis and arterial anastomotic line stenosis. This was crossed with a guidewire and balloon dilation of this area was performed with a 5 mm balloon catheter. Compl etion fistulogram demonstrated good post balloon results. Guidewire was advanced from the antegrade directed sheath through the graft to the venous anastomotic line. The guidewire was unable to be passed through the anastomotic line. Fistulogram was performed which demonstrated extremely poor outflow vessels. Multiple catheter and guidewire combinations were utilized in attempt to cross this lesion however lesion could not be crossed and the veins were felt to be so poor that this would result in relatively rapid thrombosis of the graft and as such this part of the procedure was abandoned. Both sheaths were withdrawn and the puncture wounds were closed with nylon suture. There is felt the patient would benefit by a tunneled hemodialysis catheter for continuation of her dialysis. Patient's right lateral neck, supraclavicular and infraclavicular areas were sterilely prepped and draped in usual manner. Ultrasound was utilized to identify the right internal jugular vein and this was normally patent and compressible and free of visible thrombus. 1% Xylocaine was utilized for local anesthesia at the confluence of the 2 heads of the sternocleidomastoid muscle. Through this anesthetized area with the aid of ultrasound a micropuncture needle was utilized to cannulate the vein. Once cannulated soft tipped guidewire was advanced into the vein. The needle was withdrawn and a 0.035 inch guidewire was advanced to the superior vena cava. Position was confirmed with fluoroscopy. Vessel dilators were then advanced and withdrawn from over the guidewire and eventually the dialysis catheter sheath and dilator were advanced over the guidewire. Guidewire was withdrawn as was the dilator. 1% Xylocaine was utilized for local anesthesia of the tissues just inferior and lateral to the angle of the clavicle. Through this anesthetized area skin incision was made and a hemodialysis catheter was tunneled between the 2 incisions and the cuff was placed within the subcutaneous tissues. Catheter was then advanced through the sheath and the sheath was peeled away. Fluoroscopy demonstrated the catheter to be in good position. Through both lumens of the catheter blood was easily withdrawn and each lumen was then blocked with heparinized saline solution. Caps were applied to the catheter. The catheter was secured to the anterior chest wall with nylon suture. The neck wound was closed with 4-0 Monocryl. Appropriate dressings were applied. Patient tolerated the procedure well and was taken to her room in satisfactory and stable condition. Total fluoroscopy time: 7.2 minutes.
--- NOTE | 2024-04-29 13:34 | XR ---
EXAMINATION TYPE: XR chest 1V portable DATE OF EXAM: 04/29/2024 1:22 PM COMPARISON: 09/15/2023 CLINICAL INDICATION: Female, 68 years old with history of HEMO CATH PLACEMENT, , FINDINGS: Right-sided double lumen hemodialysis catheter tips at the lower SVC level. Heart borderline to mildl y enlarged. Interstitial prominence slightly increased. No efren consolidation or pleural effusion. IMPRESSION: Correlate for CHF with pulmonary vascular congestion. [facility], , 04/29/2024 1:31 PM
[2024-04-29] MEDS: HYDROcodone/APAP 5-325MG 1 EACH TAB PO PRN (13:41)
--- NOTE | 2024-04-29 14:03 | P.PN ---
Subjective Progress Note Date: 04/29/24 Hospital Course: Patient is a 68-year-old female with history of ESRD on hemodialysis presenting with dialysis access issues. She has a history of hypertension, hypothyroidism, type 2 diabetes on insulin, GERD.patient denies any new symptoms. She denies any shortness of breath, chest pain, abdominal pain, nausea, vomiting, or bowel complaints. She makes very little urine. Denies any fevers, chills, travel history or sick contacts. In the ED, temperature was 98.7, pulse 83, respiratory rate 18, blood pressure 150/86, saturating at 96% on room air. WBC 5.6, hemoglobin 11.1, around base line, potassium 5.7, bicarb 35, creatinine 10.13, phosphorus 5.1. Patient went for AV graft revision on 04/29/2024, fistulogram showed extremely poor outflow vessels, it was decided to place tunneled hemodialysis catheter for continuation of dialysis. Subjective: Seen and examined at bedside, complaining of right upper extremity pain, fatigue Pertinent positives and negatives as discussed above, a complete review of systems was performed and all other systems are negative. Vitals Signs Reviewed. General: [nontoxic], [no distress], [appears at stated age] Derm: [warm], [dry], right chest tunneled catheter dressing clean and dry Head: [atraumatic], [normocephalic], [symmetric] Eyes: [EOMI], [no lid lag], [anicteric sclera] Mouth: [no lip lesion], [mucus membranes moist] Cardiovascular: [S1S2 reg], [no murmur] Lungs: [CTA bilateral], [no rhonchi, no rales] , [no accessory muscle use] Abdominal: [soft], [ nontender to palpation], [no guarding], [no appreciable organomegaly] Ext right BKA, left lower extremity with no edema Neuro: [ CN II-XI grossly intact], [no focal neuro deficits] Psych: [Alert], [oriented], [appropriate affect] Data Reviewed Today: Pertinent Labs: CBC with stable hemoglobin of 10.1, no leukocytosis, platelet count normal, sodium and potassium WNL, glucose is fairly controlled, Assessment and Plan: Malfunctioning AV fistula, unsuccessful revision, status post tunneled catheter placement 04/29/2024 ESRD on hemodialysis Hyperkalemia, resolved -Vascular surgery consulted -Nephrology consulted for dialysis -Repeat CMP Insulin-dependent diabetes -Sliding scale insulin, monitor for hypoglycemia -Seems Levemir, glipizide Chronic: Hypertension Hypothyroidism GERD Neuropathy -Home meds reconciled and ordered DVT prophylaxis with heparin Anticipated discharge place: home Anticipated discharge time: Likely 04/30/2024 Objective - Vital Signs Vital signs: Vital Signs Temp 97.6 F 04/29/24 07:27 Pulse 82 04/29/24 07:27 Resp 18 04/29/24 10:06 BP 156/73 04/29/24 07:27 Pulse Ox 98 04/29/24 07:27 FiO2 Intake & Output 04/28/24 04/29/24 04/29/24 18:59 06:59 18:59 Intake Total 50 Balance 50 Weight 100.244 kg 100.244 kg Intake: IV 50 - Labs CBC & Chem 7: 04/29/24 02:53 04/29/24 02:53 Labs: Abnormal Lab Results - Last 24 Hours (Table) 04/28/24 04/28/24 04/28/24 Range/Units 16:32 16:32 18:10 RBC 3.46 L (3.80-5.40) m/uL Hgb 11.1 L (11.4-16.0) gm/dL Hct (37.2-46.3) % MCV 101.4 H (80.0-100.0) fL RDW (11.5-14.5) % MPV (9.5-12.2) FL Potassium 5.7 H (3.5-5.1) mmol/L Chloride 94 L (98-107) mmol/L Carbon Dioxide 35 H (22-30) mmol/L Anion Gap (4.00-12.00) mmol/L BUN 52 H (7-17) mg/dL Creatinine 10.13 H* (0.52-1.04) mg/dL Est GFR (CKD-EPI) (>=60) BUN/Creatinine Ratio (12.00-20.00) Ratio Glucose 288 H (74-99) mg/dL POC Glucose (mg/dL) 332 H (70-110) mg/dL Hemoglobin A1c (<=6.0) % Calcium (8.7-10.3) mg/dL Phosphorus 5.1 H (2.5-4.5) mg/dL Total Bilirubin (0.3-1.2) mg/dL Total Protein 6.2 L (6.3-8.2) g/dL Albumin (3.8-4.9) g/dL Albumin/Globulin Ratio (1.60-3.17) Ratio 04/29/24 04/29/24 04/29/24 Range/Units 02:53 02:53 02:53 RBC 3.17 L (3.80-5.40) m/uL Hgb 10.1 L (11.4-16.0) gm/dL Hct 31.3 L (37.2-46.3) % MCV 98.7 H (80.0-100.0) fL RDW 15.8 H (11.5-14.5) % MPV 13.0 H (9.5-12.2) FL Potassium (3.5-5.1) mmol/L Chloride (98-107) mmol/L Carbon Dioxide (22-30) mmol/L Anion Gap 15.90 H (4.00-12.00) mmol/L BUN 48.3 H (7-17) mg/dL Creatinine 10.2 H (0.52-1.04) mg/dL Est GFR (CKD-EPI) 4 L (>=60) BUN/Creatinine Ratio 4.74 L (12.00-20.00) Ratio Glucose 170 H (74-99) mg/dL POC Glucose (mg/dL) (70-110) mg/dL Hemoglobin A1c 8.4 H (<=6.0) % Calcium 8.6 L (8.7-10.3) mg/dL Phosphorus (2.5-4.5) mg/dL Total Bilirubin 0.2 L (0.3-1.2) mg/dL Total Protein 5.8 L (6.3-8.2) g/dL Albumin 3.4 L (3.8-4.9) g/dL Albumin/Globulin Ratio 1.42 L (1.60-3.17) Ratio 04/29/24 Range/Units 06:49 RBC (3.80-5.40) m/uL Hgb (11.4-16.0) gm/dL Hct (37.2-46.3) % MCV (80.0-100.0) fL RDW (11.5-14.5) % MPV (9.5-12.2) FL Potassium (3.5-5.1) mmol/L Chloride (98-107) mmol/L Carbon Dioxide (22-30) mmol/L Anion Gap (4.00-12.00) mmol/L BUN (7-17) mg/dL Creatinine (0.52-1.04) mg/dL Est GFR (CKD-EPI) (>=60) BUN/Creatinine Ratio (12.00-20.00) Ratio Glucose (74-99) mg/dL POC Glucose (mg/dL) 259 H (70-110) mg/dL Hemoglobin A1c (<=6.0) % Calcium (8.7-10.3) mg/dL Phosphorus (2.5-4.5) mg/dL Total Bilirubin (0.3-1.2) mg/dL Total Protein (6.3-8.2) g/dL Albumin (3.8-4.9) g/dL Albumin/Globulin Ratio (1.60-3.17) Ratio
[2024-04-29 16:37] LABS: Glucose,Whole Blood 196 mg/dL (70-110)
[2024-04-29] MEDS: HYDROmorphone 1 MG/ML 1 ML SYRINGE IVP PRN (16:53)
[2024-04-29] MEDS: carvediloL 3.125 MG TAB PO SCH (17:02)
[2024-04-29] MEDS: CALCIUM ACETATE 667 MG TAB PO SCH (17:02)
[2024-04-29 20:23] LABS: Glucose,Whole Blood 231 mg/dL (70-110)
[2024-04-29] MEDS: LATANOPROST 0.005% OPHTH DROPS 2.5 ML BTL BOTH EYES SCH (20:54)
[2024-04-29] MEDS: TORSEMIDE 20 MG TAB PO SCH (20:56)
[2024-04-30 06:13] LABS: Glucose,Whole Blood 233 mg/dL (70-110)
[2024-04-30] MEDS: LEVOTHYROXINE 75 MCG TAB PO SCH (06:58)
[2024-04-30] MEDS: INSULIN DETEMIR (LEVEMIR) 100 UNIT/ML SYR SQ SCH (06:58)
[2024-04-30] MEDS: glipiZIDE 5 MG TAB PO SCH (07:54)
[2024-04-30] MEDS: PREGABALIN 75 MG CAP PO SCH (07:54)
[2024-04-30] MEDS: FOLIC ACID-VIT B COMPLEX-VIT C 1 CAP PO SCH (07:54)
[2024-04-30 09:09] LABS: Basophils # (A) 0.06 X 10*3/uL (0.00-0.10); Eosinophils # (A) 0.16 X 10*3/uL (0.04-0.35); Eosinophils % (A) 2.8 %; HCT 30.2 % (37.2-46.3); HGB 9.5 g/dL (12.0-15.0); Lymphocytes # (A) 0.86 X 10*3/uL (0.90-5.00); Lymphocytes % (A) 14.8 %; MCH 31.6 pg (27.0-32.0); MCHC 31.5 g/dL (32.0-37.0); MCV 100.3 FL (80.0-97.0); Mean Platelet Volume 13.5 FL (9.5-12.2); Monocytes # (A) 0.36 X 10*3/uL (0.20-1.00); Monocytes % (A) 6.2 %; NRBC Per 100 WBC 0 X 10*3/uL (0.00-0.01); Neutrophils # (A) 4.34 X 10*3/uL (1.80-7.70); Neutrophils % (A) 74.7 %; Platelet Count 146 X 10*3/uL (140-440); RBC 3.01 X 10*6/uL (4.10-5.20); RDW 15.9 % (11.5-14.5); WBC 5.81 X 10*3/uL (4.50-10.00)
[2024-04-30 09:34] LABS: BUN/Creat Ratio 3.76 Ratio (12.00-20.00); Blood Urea Nitrogen 28.6 mg/dL (9.0-27.0); Calcium 8.2 mg/dL (8.7-10.3); Carbon Dioxide 30.4 mmol/L (21.6-31.8); Chloride 97 mmol/L (96-109); Glucose 246 mg/dL (70-110); Potassium 5.3 mmol/L (3.5-5.5); Sodium 137 mmol/L (135-145)
[2024-04-30 11:31] LABS: Glucose,Whole Blood 235 mg/dL (70-110)
--- NOTE | 2024-04-30 12:51 | P.NPCON ---
History of Present Illness - Reason for Consult end stage renal disease - History of Present Illness Patient is a 68-year-old female with end-stage renal disease maintained on hemodialysis on Sunday schedule. Patient was admitted to the hospital due to thrombosed AV graft. Thrombectomy was attempted yesterday but was not successful and therefore patient has had a right IJ catheter placed. Patient did have hemodialysis yesterday and tolerated treatment well. Patient is complaining of pain at the site of the IJ catheter placement. No bleeding noted. Past Medical History Past Medical History: Diabetes Mellitus, Dialysis, GERD/Reflux, Hyperlipidemia, Hypertension, Memory Impairment, Renal Disease, Thyroid Disorder Additional Past Medical History / Comment(s): hx steel syndrome left hand,. 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 neck cervic al 4,5,6 fused. graft tie off 04/05/2017, eye laser surgery for diabetic retinopathy Past Anesthesia/Blood Transfusion Reactions: No Reported Reaction Past Psychological History: Anxiety, Depression Additional Psychological History / Comment(s): Single. Retired. No current tobacco or alcohol use. No experience. International travel. No animal exposures Smoking Status: Former smoker Past Alcohol Use History: None Reported Additional Past Alcohol Use History / Comment(s): smoked 25 years 1pack/wk quit 2002. Past Drug Use History: None Reported - Past Family History Mother Family Medical History: Diabetes Mellitus, Hypertension Additional Family Medical History / Comment(s): colon ca Father Family Medical History: Myocardial Infarction ([place]) Medications and Allergies Home Medications Medication Instructions Recorded Confirmed Type Levothyroxine Sodium [Synthroid] 75 mcg PO DAILY 10/09/16 04/28/24 History Calcium Acetate [PhosLo] 667 mg PO TID-W/MEALS cap 02/27/19 04/28/24 Rx Latanoprost [Latanoprost 0.005%] 1 drop BOTH EYES HS 02/05/22 04/28/24 History Torsemide [Demadex] 20 mg PO BID 02/05/22 04/28/24 History Folic Acid/Vit B Complex and C 0.8 mg PO DAILY 09/15/23 04/28/24 History [Rosio-Thomas Tablet] Pregabalin [Lyrica] 75 mg PO DAILY 09/15/23 04/28/24 History Systane Dry Eye 1 drop BOTH EYES QID PRN 09/15/23 04/28/24 History carvediloL [Coreg] 3.125 mg PO BID 09/15/23 04/28/24 History Insulin Aspart (Niacinamide) See Protocol SQ AC-TID 04/28/24 04/28/24 History [Fiasp 100 Unit/ml Flextouch Pen] Insulin Glargine,Hum.rec.anlog 14 unit SQ DAILY 04/28/24 04/28/24 History [Basaglar Kwikpen U-100] glipiZIDE [Glucotrol] 5 mg PO DAILY 04/28/24 04/28/24 History Allergies Allergy/AdvReac Type Severity Reaction Status Date / Time gabapentin Allergy Rash/Hives Verified 04/28/24 19:42 escitalopram [From Lexapro] AdvReac Hallucinati Verified 04/28/24 19:42 ons lisinopril AdvReac Cough Verified 04/28/24 19:42 morphine AdvReac Hallucinati Verified 04/28/24 19:42 ons quetiapine [From Seroquel] AdvReac Hallucinati Verified 04/28/24 19:42 ons Physical Exam Vitals: Vital Signs Temp Pulse Resp BP Pulse Ox 04/30/24 07:01 98.4 F 72 19 144/77 97 04/30/24 01:00 98.8 F 70 16 119/74 91 L 04/29/24 19:05 97.8 F 66 18 93/51 94 L 04/29/24 14:31 97.8 F 73 16 115/59 97 04/29/24 13:37 36.8 F L 68 18 188/87 04/29/24 12:49 73 160/87 Intake and Output 04/29/24 04/30/24 04/30/24 22:59 06:59 14:59 Output Total 200 Balance -200 Output: Urine 200 Other: # Voids 2 Patient is awake, comfortable, no acute distress. Examination of the heart S1 and S2 Examination of the lungs bilateral breath sounds are heard Abdomen is soft nontender Examination of lower extremity shows no significant edema, right BKA RABBIT BREEDER exam grossly intact Results - Lab Results Most recent lab results Calcium 8.2 mg/dL (8.7-10.3) L 04/30/24 03:31 Phosphorus 5.1 mg/dL (2.5-4.5) H 04/28/24 16:32 Magnesium 2.3 mg/dL (1.5-2.4) 04/29/24 02:53 04/30/24 03:31 04/30/24 03:31 Assessment and Plan Assessment: 1. End-stage renal disease on hemodialysis on Sunday naida brown 2. Thrombosed right forearm AV graft status post right IJ permacath placement 3. CKD mineral bone disorder 4. Hypertension with CKD stage V Plan: Hemodialysis in a.m.
--- NOTE | 2024-04-30 14:24 | P.PN ---
Subjective Progress Note Date: 04/30/24 Hospital Course: Patient is a 68-year-old female with history of ESRD on hemodialysis presenting with dialysis access issues. She has a history of hypertension, hypothyroidism, type 2 diabetes on insulin, GERD.patient denies any new symptoms. She denies any shortness of breath, chest pain, abdominal pain, nausea, vomiting, or bowel complaints. She makes very little urine. Denies any fevers, chills, travel history or sick contacts. In the ED, temperature was 98.7, pulse 83, respiratory rate 18, blood pressure 150/86, saturating at 96% on room air. WBC 5.6, hemoglobin 11.1, around base line, potassium 5.7, bicarb 35, creatinine 10.13, phosphorus 5.1. Patient went for AV graft revision on 04/29/2024, fistulogram showed extremely poor outflow vessels, it was decided to place tunneled hemodialysis catheter for continuation of dialysis. Plan for HD /, likely discharge after. Subjective: Patient feels fatigued, complains of pain at the site of catheter insertion Pertinent positives and negatives as discussed above, a complete review of systems was performed and all other systems are negative. Vitals Signs Reviewed. General: [nontoxic], [no distress], [appears at stated age] Derm: [warm], [dry], right chest tunneled catheter dressing clean and dry Head: [atraumatic], [normocephalic], [symmetric] Eyes: [EOMI], [no lid lag], [anicteric sclera] Mouth: [no lip lesion], [mucus membranes moist] Cardiovascular: [S1S2 reg], [no murmur] Lungs: [CTA bilateral], [no rhonchi, no rales] , [no accessory muscle use] Abdominal: [soft], [ nontender to palpation], [no guarding], [no appreciable organomegaly] Ext right BKA, left lower extremity with no edema Neuro: [ CN II-XI grossly intact], [no focal neuro deficits] Psych: [Alert], [oriented], [appropriate affect] Data Reviewed Today: Pertinent Labs: No leukocytosis, hemoglobin 9.5, stable, platelet count low normal, sodium and potassium normal, glucose 200s Assessment and Plan: Malfunctioning AV fistula, unsuccessful revision, status post tunneled catheter placement 04/29/2024 ESRD on hemodialysis Hyperkalemia, resolved -Vascular surgery following -Nephrology consulted for dialysis, plan for HD on 05/01 -Repeat CMP Insulin-dependent diabetes -Sliding scale insulin, monitor for hypoglycemia -Increase Levemir to 17, continue glipizide Chronic: Hypertension Hypothyroidism GERD Neuropathy -Home meds reconciled and ordered DVT prophylaxis with heparin Anticipated discharge place: home Anticipated discharge time: Likely Objective - Vital Signs Vital signs: Vital Signs Temp 98.4 F 04/30/24 07:01 Pulse 72 04/30/24 07:01 Resp 19 04/30/24 07:01 BP 144/77 04/30/24 07:01 Pulse Ox 97 04/30/24 07:01 FiO2 Intake & Output 04/29/24 04/30/24 04/30/24 18:59 06:59 18:59 Intake Total 1300 Output Total 1450 Balance -150 Intake: IV 50 Hemodialysis 1250 Output: Urine 200 Hemodialysis 400 Hemodialysis Net Amount 850 Other: # Voids 2 - Labs CBC & Chem 7: 04/30/24 03:31 04/30/24 03:31 Labs: Abnormal Lab Results - Last 24 Hours (Table) 04/29/24 04/29/24 04/30/24 Range/Units 16:36 20:22 03:31 RBC 3.01 L (4.10-5.20) X 10*6/uL Hgb 9.5 L (12.0-15.0) g/dL Hct 30.2 L (37.2-46.3) % MCV 100.3 H (80.0-97.0) FL MCHC 31.5 L (32.0-37.0) g/dL RDW 15.9 H (11.5-14.5) % MPV 13.5 H (9.5-12.2) FL Lymphocytes # 0.86 L (0.90-5.00) X 10*3/uL BUN (9.0-27.0) mg/dL Creatinine (0.6-1.5) mg/dL Est GFR (CKD-EPI) (>=60) BUN/Creatinine Ratio (12.00-20.00) Ratio Glucose (70-110) mg/dL POC Glucose (mg/dL) 196 H 231 H (70-110) mg/dL Calcium (8.7-10.3) mg/dL 04/30/24 04/30/24 04/30/24 Range/Units 03:31 06:12 11:29 RBC (4.10-5.20) X 10*6/uL Hgb (12.0-15.0) g/dL Hct (37.2-46.3) % MCV (80.0-97.0) FL MCHC (32.0-37.0) g/dL RDW (11.5-14.5) % MPV (9.5-12.2) FL Lymphocytes # (0.90-5.00) X 10*3/uL BUN 28.6 H (9.0-27.0) mg/dL Creatinine 7.6 H (0.6-1.5) mg/dL Est GFR (CKD-EPI) 5 L (>=60) BUN/Creatinine Ratio 3.76 L (12.00-20.00) Ratio Glucose 246 H (70-110) mg/dL POC Glucose (mg/dL) 233 H 235 H (70-110) mg/dL Calcium 8.2 L (8.7-10.3) mg/dL
[2024-04-30 16:27] LABS: Glucose,Whole Blood 186 mg/dL (70-110)
[2024-04-30 20:23] LABS: Glucose,Whole Blood 302 mg/dL (70-110)
[2024-05-01 06:27] LABS: Glucose,Whole Blood 130 mg/dL (70-110)
[2024-05-01] MEDS: INSULIN DETEMIR (LEVEMIR) 100 UNIT/ML SYR SQ SCH (06:43)
[2024-05-01 09:22] LABS: Basophils # (A) 0.04 X 10*3/uL (0.00-0.10); Basophils % (A) 0.7 %; Eosinophils # (A) 0.23 X 10*3/uL (0.04-0.35); Eosinophils % (A) 4.2 %; HCT 30.3 % (37.2-46.3); HGB 9.6 g/dL (12.0-15.0); Lymphocytes # (A) 0.82 X 10*3/uL (0.90-5.00); Lymphocytes % (A) 15.1 %; MCH 31.6 pg (27.0-32.0); MCHC 31.7 g/dL (32.0-37.0); MCV 99.7 FL (80.0-97.0); Mean Platelet Volume 13.2 FL (9.5-12.2); Monocytes # (A) 0.44 X 10*3/uL (0.20-1.00); Monocytes % (A) 8.1 %; NRBC Per 100 WBC 0 X 10*3/uL (0.00-0.01); Neutrophils # (A) 3.89 X 10*3/uL (1.80-7.70); Neutrophils % (A) 71.5 %; Platelet Count 139 X 10*3/uL (140-440); RBC 3.04 X 10*6/uL (4.10-5.20); RDW 15.5 % (11.5-14.5); WBC 5.44 X 10*3/uL (4.50-10.00)
[2024-05-01 09:46] LABS: BUN/Creat Ratio 4.24 Ratio (12.00-20.00); Blood Urea Nitrogen 44.5 mg/dL (9.0-27.0); Calcium 8.2 mg/dL (8.7-10.3); Carbon Dioxide 26.9 mmol/L (21.6-31.8); Chloride 98 mmol/L (96-109); Glucose 99 mg/dL (70-110); Sodium 140 mmol/L (135-145)
[2024-05-01 11:28] LABS: Glucose,Whole Blood 326 mg/dL (70-110)
--- NOTE | 2024-05-01 12:11 | P.PN ---
Subjective Patient is seen for follow-up for end-stage renal disease. No significant complaints today. Scheduled for hemodialysis today. Objective - Vital Signs Vital signs: Vital Signs Temp 97.5 F L 05/01/24 07:00 Pulse 71 05/01/24 07:00 Resp 18 05/01/24 10:49 BP 157/80 05/01/24 07:00 Pulse Ox 93 L 05/01/24 07:00 FiO2 Intake & Output 04/30/24 05/01/24 05/01/24 18:59 06:59 18:59 Intake Total 480 240 250 Output Total 200 Balance 480 240 50 Intake: Oral 480 240 250 Output: Urine 200 Other: # Voids 0 1 1 - Exam Patient is awake, comfortable, no acute distress Examination of the heart S1 and S2 Examination of the lungs bilateral breath sounds are heard Abdomen is soft nontender Examination of lower extremities shows no significant edema right BKA - Labs CBC & Chem 7: 05/01/24 04:58 05/01/24 04:58 Labs: Abnormal Lab Results - Last 24 Hours (Table) 04/30/24 04/30/24 05/01/24 Range/Units 16:26 20:21 04:58 RBC 3.04 L (4.10-5.20) X 10*6/uL Hgb 9.6 L (12.0-15.0) g/dL Hct 30.3 L (37.2-46.3) % MCV 99.7 H (80.0-97.0) FL MCHC 31.7 L (32.0-37.0) g/dL RDW 15.5 H (11.5-14.5) % Plt Count 139 L (140-440) X 10*3/uL MPV 13.2 H (9.5-12.2) FL Lymphocytes # 0.82 L (0.90-5.00) X 10*3/uL Anion Gap (4.00-12.00) mmol/L BUN (9.0-27.0) mg/dL Creatinine (0.6-1.5) mg/dL Est GFR (CKD-EPI) (>=60) BUN/Creatinine Ratio (12.00-20.00) Ratio POC Glucose (mg/dL) 186 H 302 H (70-110) mg/dL Calcium (8.7-10.3) mg/dL 05/01/24 05/01/24 05/01/24 Range/Units 04:58 06:25 11:26 RBC (4.10-5.20) X 10*6/uL Hgb (12.0-15.0) g/dL Hct (37.2-46.3) % MCV (80.0-97.0) FL MCHC (32.0-37.0) g/dL RDW (11.5-14.5) % Plt Count (140-440) X 10*3/uL MPV (9.5-12.2) FL Lymphocytes # (0.90-5.00) X 10*3/uL Anion Gap 15.10 H (4.00-12.00) mmol/L BUN 44.5 H (9.0-27.0) mg/dL Creatinine 10.5 H (0.6-1.5) mg/dL Est GFR (CKD-EPI) 4 L (>=60) BUN/Creatinine Ratio 4.24 L (12.00-20.00) Ratio POC Glucose (mg/dL) 130 H 326 H (70-110) mg/dL Calcium 8.2 L (8.7-10.3) mg/dL Assessment and Plan Assessment: 1. End-stage renal disease on hemodialysis on Sunday schedule 2. Thrombosed right forearm AV graft status post right IJ permacath placement 3. CKD mineral bone disorder 4. Hypertension with CKD stage V Plan: Hemodialysis today. Patient can be discharged postdialysis
--- NOTE | 2024-05-01 13:52 | P.DS ---
Providers Date of admission: 04/28/24 17:35 Attending physician: Jose Augustine Consults: 04/28/24 17:36 Consult Physician Routine Consulting Provider: Maribel Woodson Consult Reason/Comments: AV fistula occlusion Do you want consulting provider notified?: Yes 04/28/24 17:37 Consult Physician Routine Consulting Provider: Zoey Archer Consult Reason/Comments: ESRD Do you want consulting provider notified?: Yes Primary care physician: Tino Aquino MD Hospital Course: Discharge Diagnosis: Malfunctioning AV fistula, unsuccessful revision, status post tunneled catheter placement 04/29/2024 ESRD on hemodialysis Hyperkalemia, resolved Type II DM on insulin Hospital Course: Patient is a 68-year-old female with history of ESRD on hemodialysis presenting with dialysis access issues. She has a history of hypertension, hypothyroidism, type 2 diabetes on insulin, GERD.patient denies any new symptoms. She denies any shortness of breath, chest pain, abdominal pain, nausea, vomiting, or bowel complaints. She makes very little urine. Denies any fevers, chills, travel history or sick contacts. In the ED, temperature was 98.7, pulse 83, respiratory rate 18, blood pressure 150/86, saturating at 96% on room air. WBC 5.6, hemoglobin 11.1, around baseline, potassium 5.7, bicarb 35, creatinine 10.13, phosphorus 5.1. Patient went for AV graft revision on 04/29/2024, fistulogram showed extremely poor outflow vessels, it was decided to place tunneled hemodialysis catheter for continuation of dialysis. Hemodialysis 1/2, will be discharged after Patient seen and examined at bedside.[States that her port site pain is improved Vital signs reviewed and stable. General: [nontoxic], [no distress], [appears at stated age] Derm: [warm], [dry], right chest tunneled catheter dressing clean and dry Head: [atraumatic], [normocephalic], [symmetric] Eyes: [EOMI], [no lid lag], [anicteric sclera] Mouth: [no lip lesion], [mucus membranes moist] Cardiovascular: [S1S2 reg], [no murmur] Lungs: [CTA bilateral], [no rhonchi, no rales] , [no accessory muscle use] Abdominal: [soft], [ nontender to palpation], [no guarding], [no appreciable organomegaly] Ext right BKA, left lower extremity with no edema Neuro: [ CN II-XI grossly intact], [no focal neuro deficits] Psych: [Alert], [oriented], [appropriate affect] A total of 40] minutes of time were spent preparing this complex discharge summary. Patient was discharged on [05/01 Patient Condition at Discharge: Stable Plan - Discharge Summary Discharge Rx Participant: Yes New Discharge Prescriptions: No Action Levothyroxine Sodium [Synthroid] 75 mcg PO DAILY Calcium Acetate [PhosLo] 667 mg PO TID-W/MEALS cap Torsemide [Demadex] 20 mg PO BID carvediloL [Coreg] 3.125 mg PO BID glipiZIDE [Glucotrol] 5 mg PO DAILY Insulin Aspart (Niacinamide) [Fiasp 100 Unit/ml Flextouch Pen] See Protocol SQ AC-TID Latanoprost [Latanoprost 0.005%] 1 drop BOTH EYES HS Pregabalin [Lyrica] 75 mg PO DAILY Folic Acid/Vit B Complex and C [Rosio-Thomas Tablet] 0.8 mg PO DAILY Systane Dry Eye 1 drop BOTH EYES QID PRN PRN Reason: Dry Eye(S) Insulin Glargine,Hum.rec.anlog [Tito Fuller U-100] 14 unit SQ DAILY Discharge Medication List Levothyroxine Sodium [Synthroid] 75 mcg PO DAILY 10/09/16 [History] Calcium Acetate [PhosLo] 667 mg PO TID-W/MEALS cap 02/27/19 [Rx] Latanoprost [Latanoprost 0.005%] 1 drop BOTH EYES HS 02/05/22 [History] Torsemide [Demadex] 20 mg PO BID 02/05/22 [History] Folic Acid/Vit B Complex and C [Rosio-Thomas Tablet] 0.8 mg PO DAILY 09/15/23 [History] Pregabalin [Lyrica] 75 mg PO DAILY 09/15/23 [History] Systane Dry Eye 1 drop BOTH EYES QID PRN 09/15/23 [History] carvediloL [Coreg] 3.125 mg PO BID 09/15/23 [History] Insulin Aspart (Niacinamide) [Fiasp 100 Unit/ml Flextouch Pen] See Protocol SQ AC-TID 04/28/24 [History] Insulin Glargine,Hum.rec.anlog [Basaglar Kwikpen U-100] 14 unit SQ DAILY 04/28/24 [History] glipiZIDE [Glucotrol] 5 mg PO DAILY 04/28/24 [History] Follow up Appointment(s)/Referral(s): [facility] [NON-STAFF] - As Needed ([facility]) Tino Aquino MD [Primary Care Provider] - 1-2 days [facility] Visiting Nurse, [NON-STAFF] - As Needed
--- NOTE | 2024-05-01 15:20 | XR ---
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 No juxta-articular erosions. Mild d egenerative change first CMC and first MCP joints. Some nonspecific soft tissue calcification within the palmar soft tissues in the proximal thumb which is nonspecific. No acute fracture, subluxation, d islocation. IMPRESSION: 1. Soft tissue swelling of the index finger. Contusion/injury and gout are in the differential. 2. Faint soft tissue calcification palmar aspect of the proximal thumb may reflect sequela of old inj ury. Unlikely gout in this location if no corresponding tenderness. 3. No specific radiographic findings of gouty arthropathy. 4. Mild osteoarthritic change first CMC and first MCP joints. [facility], , 05/01/2024 3:17 PM
[2024-05-01 16:57] LABS: Glucose,Whole Blood 110 mg/dL (70-110)
[2024-05-01 17:48] VITALS: BP 146/99; PULSE 75; RESP 19; TEMP 98.1
== END 2024-05-01 18:07 | disposition home or self-care (01) ==
LOC: EC 12:06 → 4SSUR 17:35
PROVIDERS: ADMIT Student in an Organized Health Care Education/Training Program; ATTEND Student in an Organized Health Care Education/Training Program
DX: T82.868A Thrombosis due to vascular prosthetic devices, implants and grafts, initial encounter (principal); Y71.2 Prosthetic and other implants, materials and accessory cardiovascular devices associated with adverse incidents; N18.6 End stage renal disease; I12.0 Hypertensive chronic kidney disease with stage 5 chronic kidney disease or end stage renal disease; E11.22 Type 2 diabetes mellitus with diabetic chronic kidney disease; E11.319 Type 2 diabetes mellitus with unspecified diabetic retinopathy without macular edema; E11.40 Type 2 diabetes mellitus with diabetic neuropathy, unspecified; E03.9 Hypothyroidism, unspecified; E87.5 Hyperkalemia; K21.9 Gastro-esophageal reflux disease without esophagitis; Z99.2 Dependence on renal dialysis; Z79.4 Long term (current) use of insulin; Z79.02 Long term (current) use of antithrombotics/antiplatelets; Z79.84 Long term (current) use of oral hypoglycemic drugs; Z79.899 Other long term (current) drug therapy; Z79.890 Hormone replacement therapy; Z88.8 Allergy status to other drugs, medicaments and biological substances; Z88.5 Allergy status to narcotic agent
CPT/HCPCS: 36905; 96372 ×3; 99285; 36415; 36558; 76937; 77001; 36902; 80053 ×2; 80048 ×2; 83735 ×2; 84100; 85025 ×4; 83036; 87636; 73130; 71045; 93971; G0378 ×4; C1894; C1769 ×4; C1750; C1725; J2250; J1644 ×3; J0690; J2003; J3010; J1171; Q9966; 90935

== ENCOUNTER 2024-07-10 11:17 | Observation (INO) | payer MEDICARE ==
[2024-07-10 13:33] LABS: Basophils % (A) 1 %; Eosinophils # (A) 0.2 k/uL (0-0.7); Eosinophils % (A) 3 %; HCT 36.1 % (34.0-46.0); HGB 10.7 gm/dL (11.4-16.0); Hypochromasia Marked; Lymphocytes # (A) 0.9 k/uL (1.0-4.8); Lymphocytes % (A) 17 %; MCH 31.4 pg (25.0-35.0); MCHC 29.5 g/dL (31.0-37.0); MCV 106.3 fL (80.0-100.0); Macrocytosis Marked; Mean Platelet Volume 9.3; Monocytes # (A) 0.2 k/uL (0-1.0); Monocytes % (A) 5 %; Neutrophils # (A) 3.6 k/uL (1.3-7.7); Neutrophils % (A) 71 %; Platelet Count 188 k/uL (150-450); RDW 15.9 % (11.5-15.5); WBC 5.1 k/uL (3.8-10.6)
[2024-07-10 13:44] LABS: INR 0.9 (<1.2); Partial Thromboplastin Time 24.9 sec (22.0-30.0); Prothrombin Time 10.4 sec (10.0-12.5)
[2024-07-10 13:51] LABS: ALT 11 U/L (4-34); AST 16 U/L (14-36); African American GFR (CKD) 4 (>60 ml/min/1.73 sqM); Albumin 3.6 g/dL (3.5-5.0); Alkaline Phosphatase 86 U/L (38-126); Anion Gap 9 mmol/L; Blood Urea Nitrogen 36 mg/dL (7-17); Calcium 8.8 mg/dL (8.4-10.2); Carbon Dioxide 32 mmol/L (22-30); Chloride 97 mmol/L (98-107); Glucose 137 mg/dL (74-99); Magnesium 2.3 mg/dL (1.6-2.3); Non-African American GFR(CKD) 3 (>60 ml/min/1.73 sqM); Phosphorus 6.4 mg/dL (2.5-4.5); Potassium 5.3 mmol/L (3.5-5.1); Sodium 138 mmol/L (137-145); Total Bilirubin 0.5 mg/dL (0.2-1.3); Total Protein 6.4 g/dL (6.3-8.2)
--- NOTE | 2024-07-10 14:37 | ED ---
General Adult HPI - General Source: patient, RN notes reviewed Mode of arrival: wheelchair Limitations: no limitations <Pk Hernandez - Last Filed: 07/10/24 15:06> <Ana Jordan - Last Filed: 07/14/24 21:48> - General Chief complaint: Recheck/Abnormal Lab/Rx Stated complaint: Dialysis catheter issue Time Seen by Provider: 07/10/24 11:36 - History of Present Illness Initial comments: 68-year-old female presents emergency department from dialysis chief complaint of dialysis catheter not functioning. Patient states that they been having difficulty over the last few times with a functioning but states they were unable to use it at all today. Patient's last dialysis was Sunday patient states that she goes to dialysis Sunday. She denies any shortness of breath. Patient states that she sees Dr. Woodson. Patient denies any other associated symptoms. (Pk Hernandez) - Related Data Home Medications Medication Instructions Recorded Confirmed Levothyroxine Sodium [Synthroid] 75 mcg PO DAILY 10/09/16 07/10/24 Latanoprost [Latanoprost 0.005%] 1 drop BOTH EYES HS 02/05/22 07/10/24 Torsemide [Demadex] 20 mg PO BID 02/05/22 07/10/24 Folic Acid/Vit B Complex and C 0.8 mg PO DAILY 09/15/23 07/10/24 [Rosio-Thomas Tablet] Pregabalin [Lyrica] 75 mg PO HS 09/15/23 07/10/24 carvediloL [Coreg] 3.125 mg PO SUMOWEFR@0900,2100 09/15/23 07/10/24 Insulin Aspart (Niacinamide) See Protocol SQ TID-W/MEALS 04/28/24 07/10/24 [Fiasp 100 Unit/ml Flextouch Pen] Insulin Glargine,Hum.rec.anlog 18 unit SQ DAILY 04/28/24 07/10/24 [Basaglar Kwikpen U-100] Carboxymethylcellulose Sodium 1 drop BOTH EYES QID PRN 07/10/24 07/10/24 [Refresh Tears] Clopidogrel [Plavix] 75 mg PO DAILY 07/10/24 07/10/24 Ergocalciferol (Vitamin D2) 1,250 mcg PO DIRECTED 07/10/24 07/10/24 [Drisdol (50,000 Iu)] Tirzepatide [Mounjaro] 2.5 mg SQ TU 07/10/24 07/10/24 carvediloL [Coreg] 3.125 mg PO TUTHSA@0900,2100 PRN 07/10/24 07/10/24 Previous Rx's Medication Instructions Recorded Calcium Acetate [PhosLo] 667 mg PO TID-W/MEALS cap 02/27/19 Allergies Allergy/AdvReac Type Severity Reaction Status Date / Time gabapentin Allergy Rash/Hives Verified 07/10/24 15:18 escitalopram [From Lexapro] AdvReac Hallucinati Verified 07/10/24 15:18 ons lisinopril AdvReac Cough Verified 07/10/24 15:18 morphine AdvReac Hallucinati Verified 07/10/24 15:18 ons quetiapine [From Seroquel] AdvReac Hallucinati Verified 07/10/24 15:18 ons Review of Systems ROS Other: All systems not noted in ROS Statement are negative. <Pk Hernandez - Last Filed: 07/10/24 15:06> ROS Other: All systems not noted in ROS Statement are negative. <Ana Jordan - Last Filed: 07/14/24 21:48> ROS Statement: Those systems with pertinent positive or pertinent negative responses have been documented in the HPI. Past Medical History Past Medical History: Diabetes Mellitus, Dialysis, GERD/Reflux, Hyperlipidemia, Hypertension, Memory Impairment, Renal Disease, Thyroid Disorder Additional Past Medical History / Comment(s): hx steel syndrome left hand,. 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 neck cervical 4,5,6 fused. graft tie off 04/05/2017, eye laser surgery for diabetic retinopathy Past Anesthesia/Blood Transfusion Reactions: No Reported Reaction Past Psychological History: Anxiety, Depression Smoking Status: Former smoker Past Alcohol Use History: None Reported Past Drug Use History: None Reported - Past Family History Mother Family Medical History: Diabetes Mellitus, Hypertension Additional Family Medical History / Comment(s): colon ca Father Family Medical History: Myocardial Infarction ([place]) <Pk Hernandez - Last Filed: 07/10/24 15:06> General Exam Limitations: no limitations General appearance: alert, in no apparent distress Head exam: Present: atraumatic, normocephalic, normal inspection Eye exam: Present: normal appearance, PERRL, EOMI. Absent: scleral icterus, conjunctival injection, periorbital swelling ENT exam: Present: normal exam, normal oropharynx, mucous membranes moist Neck exam: Present: normal inspection, full ROM. Absent: tenderness, meningismus, lymphadenopathy Respiratory exam: Present: normal lung sounds bilaterally. Absent: respiratory distress, wheezes, rales, rhonchi, stridor Cardiovascular Exam: Present: regular rate, normal rhythm, normal heart sounds. Absent: systolic murmur, diastolic murmur, rubs, gallop, clicks GI/Abdominal exam: Present: soft, normal bowel sounds. Absent: distended, tenderness, guarding, rebound, rigid <Pk Hernandez - Last Filed: 07/10/24 15:06> Course Vital Signs 07/10/24 07/10/24 11:22 16:28 Temperature 98.2 F 98.2 F Pulse Rate 90 79 Respiratory 18 18 Rate Blood Pressure 177/83 192/101 O2 Sat by Pulse 96 96 Oximetry Medical Decision Making - Lab Data Result diagrams: 07/10/24 12:59 07/10/24 12:59 <Pk Hernandez - Last Filed: 07/10/24 15:06> - Lab Data Result diagrams: 07/10/24 12:59 07/11/24 03:30 <Ana Jordan - Last Filed: 07/14/24 21:48> - Medical Decision Making Was pt. sent in by a medical professional or institution (, PA, [employer], urgent care, hospital, or chcf...) When possible be specific @ -Dialysis Did you speak to anyone other than the patient for history (EMS, parent, family, police, friend...)? What history was obtained from this source @ -No Did you review nursing and triage notes (agree or disagree)? Why? @ -I reviewed and agree with nursing and triage notes Were old charts reviewed (outside hosp., previous admission, EMS record, old EKG, old radiological studies, urgent care reports/EKG's, chcf records)? Report findings @ -No old charts were reviewed Differential Diagnosis (chest pain, altered mental status, abdominal pain women, abdominal pain men, vaginal bleeding, weakness, fever, dyspnea, syncope, headache, dizziness, GI bleed, back pain, seizure, CVA, palpatations, mental health, musculoskeletal)? @ -Dialysis catheter failure, clogged line, ESRD EKG interpreted by me (3pts min.). @ -None X-rays interpreted by me (1pt min.). @ -None done CT interpreted by me (1pt min.). @ -None done U/S interpreted by me (1pt. min.). @ -None done What testing was considered but not performed or refused? (CT, X-rays, U/S, labs)? Why? @ -None What meds were considered but not given or refused? Why? @ -None Did you discuss the management of the patient with other professionals (professionals i.e. , PA, [employer], lab, RT, psych nurse, social media senior associate, director of software engineering, teacher, annual giving officer, case aide)? Give summary @Discussed case with Dr. Renteria for admission, Fiordaliza with vascular and consult to nephrology Was smoking cessation discussed for >3mins.? @ -No Was critical care preformed (if so, how long)? @ -No Were there social determinants of health that impacted care today? How? (Homelessness, low income, unemployed, alcoholism, drug addiction, transporta tion, low edu. Level, literacy, decrease access to med. care, skilled nursing, rehab)? @ -No Was there de-escalation of care discussed even if they declined (Discuss DNR or withdrawal of care, Hospice)? DNR status @ -No What co-morbidities impacted this encounter? (DM, HTN, Smoking, COPD, CAD, Cancer, CVA, ARF, Chemo, Hep., AIDS, mental health diagnosis, sleep apnea, morbid obesity)? @ -ESRD Was patient admitted / discharged? Hospital course, mention meds given and route, prescriptions, significant lab abnormalities, going to OR and other pertinent info. @ -[Admitted to medicine with consults to nephrology and vascular for failed catheter. Undiagnosed new problem with uncertain prognosis? @ -No Drug Therapy requiring intensive monitoring for toxicity (Heparin, Nitro, Insulin, Cardizem)? @ -No Were any procedures done? @ -No Diagnosis/symptom? @ -Malfunction of dialysis catheter ESRD Acute, or Chronic, or Acute on Chronic? @ -Acute Uncomplicated (without systemic symptoms) or Complicated (systemic symptoms)? @ -Complicated Side effects of treatment? @ -No Exacerbation, Progression, or Severe Exacerbation? @ -No Poses a threat to life or bodily function? How? (Chest pain, [place], [place], pneumonia, PE, COPD, DKA, ARF, appy, cholecystitis, CVA, Diverticulitis, Homicidal, Suicidal, threat to staff... and all critical care pts) @ -Yes ESRD causing hyperkalemia and cardiac risk (Pk Hernandez) - Lab Data Lab Results 07/10/24 07/10/24 07/10/24 Range/Units 12:59 12:59 12:59 WBC 5.1 (3.8-10.6) k/uL RBC 3.40 L (3.80-5.40) m/uL Hgb 10.7 L (11.4-16.0) gm/dL Hct 36.1 (34.0-46.0) % MCV 106.3 H (80.0-100.0) fL MCH 31.4 (25.0-35.0) pg MCHC 29.5 L (31.0-37.0) g/dL RDW 15.9 H (11.5-15.5) % Plt Count 188 (150-450) k/uL MPV 9.3 Neutrophils % 71 % Lymphocytes % 17 % Monocytes % 5 % Eosinophils % 3 % Basophils % 1 % Neutrophils # 3.6 (1.3-7.7) k/uL Lymphocytes # 0.9 L (1.0-4.8) k/uL Monocytes # 0.2 (0-1.0) k/uL Eosinophils # 0.2 (0-0.7) k/uL Basophils # 0.0 (0-0.2) k/uL Manual Slide Review Performed Hypochromasia Marked Macrocytosis Marked A PT 10.4 (10.0-12.5) sec INR 0.9 (<1.2) APTT 24.9 (22.0-30.0) sec Sodium 138 (137-145) mmol/L Potassium 5.3 H (3.5-5.1) mmol/L Chloride 97 L (98-107) mmol/L Carbon Dioxide 32 H (22-30) mmol/L Anion Gap 9 mmol/L BUN 36 H (7-17) mg/dL Creatinine 10.58 H* (0.52-1.04) mg/dL Est GFR (CKD-EPI)AfAm 4 (>60 ml/min/1.73 sqM) Est GFR (CKD-EPI)NonAf 3 (>60 ml/min/1.73 sqM) Glucose 137 H (74-99) mg/dL Calcium 8.8 (8.4-10.2) mg/dL Phosphorus 6.4 H (2.5-4.5) mg/dL Magnesium 2.3 (1.6-2.3) mg/dL Total Bilirubin 0.5 (0.2-1.3) mg/dL AST 16 (14-36) U/L ALT 11 (4-34) U/L Alkaline Phosphatase 86 (38-126) U/L Total Protein 6.4 (6.3-8.2) g/dL Albumin 3.6 (3.5-5.0) g/dL Disposition Time of Disposition: 15:08 <Pk Hernandez - Last Filed: 07/10/24 15:06> <Ana Jordan - Last Filed: 07/14/24 21:48> Clinical Impression: End stage renal disease on dialysis, Complication, dialysis catheter clot or failure Disposition: ADMITTED IP TO THIS HOSP
[2024-07-10] MEDS ORDERED: NALOXONE 0.4 MG/ML 1 ML VIAL IV PRN (15:08)
--- NOTE | 2024-07-10 15:33 | P.GSCN ---
History of Present Illness Consult date: 07/10/24 Reason for Consult: Malfunctioning hemodialysis catheter Requesting physician: Pk Hernandez History of present illness: This is a pleasant 68-year-old -[place] female who was sent in from dialysis center for malfunctioning tunneled dialysis catheter. Patient has a history of diabetes mellitus, end-stage renal disease on hemodialysis with a schedule of Sunday and Saturdays. Patient states she went on Sunday they were able to do a full dialysis treatment however she states they do have trouble at times since it was placed. Patient has history of a right upper extremity AV graft that is thrombosed. Right IJ tunnel catheter was placed on 04/29/[address] Hernandez. Patient follows with Dr. Woodson. She denies any pain, swelling or discharge from catheter site. Denies any shortness of breath or chest pain. No lower extremity swelling. Right lower extremity with prosthesis. Review of Systems A 14 point review systems was completed all pertinent positives and negatives as stated in the HPI. Past Medical History Past Medical History: Diabetes Mellitus, Dialysis, GERD/Reflux, Hyperlipidemia, Hypertension, Memory Impairment, Renal Disease, Thyroid Disorder Additional Past Medical History / Comment(s): hx steel syndrome left hand,. 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 neck cervical 4,5,6 fused. graft tie off 04/05/2017, eye laser surgery for diabetic retinopathy Past Anesthesia/Blood Transfusion Reactions: No Reported Reaction Past Psychological History: Anxiety, Depression Smoking Status: Former smoker Past Alcohol Use History: None Reported Past Drug Use History: None Reported - Past Family History Mother Family Medical History: Diabetes Mellitus, Hypertension Additional Family Medical History / Comment(s): colon ca Father Family Medical History: Myocardial Infarction ([place]) Medications and Allergies Home Medications Medication Instructions Recorded Confirmed Type Levothyroxine Sodium [Synthroid] 75 mcg PO DAILY 10/09/16 04/28/24 History Calcium Acetate [PhosLo] 667 mg PO TID-W/MEALS cap 02/27/19 04/28/24 Rx Latanoprost [Latanoprost 0.005%] 1 drop BOTH EYES HS 02/05/22 04/28/24 History Torsemide [Demadex] 20 mg PO BID 02/05/22 04/28/24 History Folic Acid/Vit B Complex and C 0.8 mg PO DAILY 09/15/23 04/28/24 History [Rosio-Thomas Tablet] Pregabalin [Lyrica] 75 mg PO DAILY 09/15/23 04/28/24 History Systane Dry Eye 1 drop BOTH EYES QID PRN 09/15/23 04/28/24 History carvediloL [Coreg] 3.125 mg PO BID 09/15/23 04/28/24 History Insulin Aspart (Niacinamide) See Protocol SQ AC-TID 04/28/24 04/28/24 History [Fiasp 100 Unit/ml Flextouch Pen] Insulin Glargine,Hum.rec.anlog 14 unit SQ DAILY 04/28/24 04/28/24 History [Basaglar Kwikpen U-100] glipiZIDE [Glucotrol] 5 mg PO DAILY 04/28/24 04/28/24 History HYDROcodone/APAP 5-325MG [[place] 1 tab PO Q4HR PRN 3 Days #18 tab 05/01/24 Rx 5-325] Allergies Allergy/AdvReac Type Severity Reaction Status Date / Time gabapentin Allergy Rash/Hives Verified 07/10/24 15:18 escitalopram [From Lexapro] AdvReac Hallucinati Verified 07/10/24 15:18 ons lisinopril AdvReac Cough Verified 07/10/24 15:18 morphine AdvReac Hallucinati Verified 07/10/24 15:18 ons quetiapine [From Seroquel] AdvReac Hallucinati Verified 07/10/24 15:18 ons Surgical - Exam Vital Signs Temp Pulse Resp BP Pulse Ox 98.2 F 90 18 177/83 96 07/10/24 11:22 07/10/24 11:22 07/10/24 11:22 07/10/24 11:22 07/10/24 11:22 General appearance: The patient is alert, oriented, appears in no acute distress. HET: Head is normocephalic and atraumatic. Pupils are equal and reactive. Neck: Supple. Chest: Right IJ tunneled catheter secured in right upper chest wall. No surrounding erythema, swelling or drainage. Heart: Regular. Lungs: Equal expansion, normal respiratory effort. Abdomen: Soft, nondistended. Extremities: Left lower extremity without any edema. Right lower extremity with prosthetic in place. Neurological: No focal deficits. Strength and sensation are grossly intact. Results - Labs 07/10/24 12:59 07/10/24 12:59 Abnormal Lab Results - Last 24 Hours (Table) 07/10/24 07/10/24 Range/Units 12:59 12:59 RBC 3.40 L (3.80-5.40) m/uL Hgb 10.7 L (11.4-16.0) gm/dL MCV 106.3 H (80.0-100.0) fL MCHC 29.5 L (31.0-37.0) g/dL RDW 15.9 H (11.5-15.5) % Lymphocytes # 0.9 L (1.0-4.8) k/uL Macrocytosis Marked A Potassium 5.3 H (3.5-5.1) mmol/L Chloride 97 L (98-107) mmol/L Carbon Dioxide 32 H (22-30) mmol/L BUN 36 H (7-17) mg/dL Creatinine 10.58 H* (0.52-1.04) mg/dL Glucose 137 H (74-99) mg/dL Phosphorus 6.4 H (2.5-4.5) mg/dL Diabetes panel 07/10/24 Range/Units 12:59 Sodium 138 (137-145) mmol/L Potassium 5.3 H (3.5-5.1) mmol/L Chloride 97 L (98-107) mmol/L Carbon Dioxide 32 H (22-30) mmol/L BUN 36 H (7-17) mg/dL Creatinine 10.58 H* (0.52-1.04) mg/dL Glucose 137 H (74-99) mg/dL Calcium 8.8 (8.4-10.2) mg/dL AST 16 (14-36) U/L ALT 11 (4-34) U/L Alkaline Phosphatase 86 (38-126) U/L Total Protein 6.4 (6.3-8.2) g/dL Albumin 3.6 (3.5-5.0) g/dL Calcium panel 07/10/24 Range/Units 12:59 Calcium 8.8 (8.4-10.2) mg/dL Phosphorus 6.4 H (2.5-4.5) mg/dL Albumin 3.6 (3.5-5.0) g/dL Pituitary panel 07/10/24 Range/Units 12:59 Sodium 138 (137-145) mmol/L Potassium 5.3 H (3.5-5.1) mmol/L Chloride 97 L (98-107) mmol/L Carbon Dioxide 32 H (22-30) mmol/L BUN 36 H (7-17) mg/dL Creatinine 10.58 H* (0.52-1.04) mg/dL Glucose 137 H (74-99) mg/dL Calcium 8.8 (8.4-10.2) mg/dL Adrenal panel 07/10/24 Range/Units 12:59 Sodium 138 (137-145) mmol/L Potassium 5.3 H (3.5-5.1) mmol/L Chloride 97 L (98-107) mmol/L Carbon Dioxide 32 H (22-30) mmol/L BUN 36 H (7-17) mg/dL Creatinine 10.58 H* (0.52-1.04) mg/dL Glucose 137 H (74-99) mg/dL Calcium 8.8 (8.4-10.2) mg/dL Total Bilirubin 0.5 (0.2-1.3) mg/dL AST 16 (14-36) U/L ALT 11 (4-34) U/L Alkaline Phosphatase 86 (38-126) U/L Total Protein 6.4 (6.3-8.2) g/dL Albumin 3.6 (3.5-5.0) g/dL Assessment and Plan Assessment: 1. Malfunctioning tunneled hemodialysis catheter 2. End-stage renal disease on hemodialysis 3. Diabetes mellitus Plan: 1. Recommend giving 2 mg Cathflo through both ports of tunneled catheter and let dwell overnight and try dialysis in the morning 2. N.p.o. after midnight 3. Dialysis recommendations per nephrology 4. Rest of medical management per primary medical team 5. Further recommendations forthcoming based on clinical course Thank you for this consultation, we will continue to follow. The impression and plan of care has been dictated as directed. Dr. Woodson I performed a history and examination of this patient, discussed the same with the dictator. I agree with the dictator's note ,documented as a scribe. Any additional findings or plans will be noted.
[2024-07-10 17:03] LABS: Glucose,Whole Blood 132 mg/dL (70-110)
[2024-07-10] MEDS ORDERED: ARTIFICIAL TEARS-HYPROMELLOSE DROPS 15 ML BTL BOTH EYES PRN (18:56)
[2024-07-10 20:20] LABS: Glucose,Whole Blood 265 mg/dL (70-110)
[2024-07-10] MEDS ORDERED: carvediloL 3.125 MG TAB PO PRN (21:00)
[2024-07-10] MEDS: CALCIUM ACETATE 667 MG TAB PO SCH (21:36)
[2024-07-10] MEDS: PREGABALIN 75 MG CAP PO SCH (21:40)
[2024-07-10] MEDS: TORSEMIDE 20 MG TAB PO SCH (21:40)
[2024-07-10] MEDS: SODIUM ZIRCONIUM CYCLOSILICATE 10 GM PACKET PO SCH (21:41)
[2024-07-10] MEDS: INSULIN LISPRO (HumaLOG) 100 UNIT/ML 10 mL VL SQ SCH (21:41)
[2024-07-10] MEDS: LATANOPROST 0.005% OPHTH DROPS 2.5 ML BTL BOTH EYES SCH (21:41)
[2024-07-11] MEDS: DEXTROSE 50% SYRINGE 50 ML IVP PRN ×2 (03:38→06:10)
[2024-07-11 03:39] LABS: Glucose,Whole Blood 57 mg/dL (70-110)
[2024-07-11 03:56] LABS: Glucose,Whole Blood 136 mg/dL (70-110)
[2024-07-11 05:58] LABS: Glucose,Whole Blood 83 mg/dL (70-110)
[2024-07-11] MEDS: INSULIN GLARGINE (LANTUS) 100 UNIT/ML SYR SQ SCH (06:05)
[2024-07-11] MEDS: LEVOTHYROXINE 75 MCG TAB PO SCH (06:06)
[2024-07-11 08:14] LABS: BUN/Creat Ratio 3.18 Ratio (12.00-20.00); Blood Urea Nitrogen 36.3 mg/dL (9.0-27.0); Carbon Dioxide 28.1 mmol/L (21.6-31.8); Chloride 102 mmol/L (96-109); Glucose 58 mg/dL (70-110); Potassium 4.9 mmol/L (3.5-5.5); Sodium 145 mmol/L (135-145)
[2024-07-11 08:49] LABS: Glucose,Whole Blood 117 mg/dL (70-110)
[2024-07-11] MEDS: MIDAZOLAM 2 MG/2 ML VIAL IVP ONE (09:28)
[2024-07-11] MEDS: fentaNYL (PF) 50 MCG/ML 2 ML AMP IVP ONE (09:28)
[2024-07-11] MEDS: LIDOCAINE 1% INJ 10MG/ML (20 ML MDV) SQ ONE (09:30)
[2024-07-11] MEDS: SODIUM CHLORIDE 0.9% 250 ML IV ONE (09:40)
--- NOTE | 2024-07-11 09:58 | P.PN ---
Subjective Progress Note Date: 07/11/24 Principal diagnosis: Malfunctioning HD tunneled catheter Patient seen and examined this morning as a follow-up. Patient states that she never had any Cathflo infused into her other port of her tunnel catheter. Initially was going to try to attempt hemodialysis this morning however secondary to no further Cathflo infused and difficulty in past with treatments will move forward with tunneled catheter exchange. Patient is agreeable to this plan. She denies any shortness of breath, chest pain, nausea or vomiting. Objective - Vital Signs Vital signs: Vital Signs Temp 97.9 F 07/11/24 07:00 Pulse 85 07/11/24 07:00 Resp 16 07/11/24 07:00 BP 190/82 07/11/24 07:00 Pulse Ox 96 07/11/24 07:00 FiO2 Intake & Output 07/10/24 07/11/24 07/11/24 18:59 06:59 18:59 Intake Total 118 Balance 118 Weight 102.058 kg Intake: Oral 118 Other: # Voids 0 - Exam General appearance: The patient is alert, oriented, appears in no acute distress. HET: Head is normocephalic and atraumatic. Pupils are equal and reactive. Neck: Supple. Chest: Right upper chest wall with hemodialysis catheter in place. No surrounding redness, swelling or drainage. Heart: Regular. Lungs: Equal expansion, normal respiratory effort. Abdomen: Soft, nondistended. Extremities: Normal skin color and turgor. Right lower extremity amputation Neurological: No focal deficits. Strength and sensation are grossly intact. - Labs CBC & Chem 7: 07/10/24 12:59 07/11/24 03:30 Labs: Abnormal Lab Results - Last 24 Hours (Table) 07/10/24 07/10/24 07/10/24 Range/Units 12:59 12:59 17:01 RBC 3.40 L (3.80-5.40) m/uL Hgb 10.7 L (11.4-16.0) gm/dL MCV 106.3 H (80.0-100.0) fL MCHC 29.5 L (31.0-37.0) g/dL RDW 15.9 H (11.5-15.5) % Lymphocytes # 0.9 L (1.0-4.8) k/uL Macrocytosis Marked A Potassium 5.3 H (3.5-5.1) mmol/L Chloride 97 L (98-107) mmol/L Carbon Dioxide 32 H (22-30) mmol/L Anion Gap (4.00-12.00) mmol/L BUN 36 H (7-17) mg/dL Creatinine 10.58 H* (0.52-1.04) mg/dL Est GFR (CKD-EPI) (>=60) BUN/Creatinine Ratio (12.00-20.00) Ratio Glucose 137 H (74-99) mg/dL POC Glucose (mg/dL) 132 H (70-110) mg/dL Phosphorus 6.4 H (2.5-4.5) mg/dL 07/10/24 07/11/24 07/11/24 Range/Units 20:17 03:30 03:37 RBC (3.80-5.40) m/uL Hgb (11.4-16.0) gm/dL MCV (80.0-100.0) fL MCHC (31.0-37.0) g/dL RDW (11.5-15.5) % Lymphocytes # (1.0-4.8) k/uL Macrocytosis Potassium (3.5-5.1) mmol/L Chloride (98-107) mmol/L Carbon Dioxide (22-30) mmol/L Anion Gap 14.90 H (4.00-12.00) mmol/L BUN 36.3 H (7-17) mg/dL Creatinine 11.4 H (0.52-1.04) mg/dL Est GFR (CKD-EPI) 3 L (>=60) BUN/Creatinine Ratio 3.18 L (12.00-20.00) Ratio Glucose 58 L (74-99) mg/dL POC Glucose (mg/dL) 265 H 57 L (70-110) mg/dL Phosphorus (2.5-4.5) mg/dL 07/11/24 Range/Units 03:54 RBC (3.80-5.40) m/uL Hgb (11.4-16.0) gm/dL MCV (80.0-100.0) fL MCHC (31.0-37.0) g/dL RDW (11.5-15.5) % Lymphocytes # (1.0-4.8) k/uL Macrocytosis Potassium (3.5-5.1) mmol/L Chloride (98-107) mmol/L Carbon Dioxide (22-30) mmol/L Anion Gap (4.00-12.00) mmol/L BUN (7-17) mg/dL Creatinine (0.52-1.04) mg/dL Est GFR (CKD-EPI) (>=60) BUN/Creatinine Ratio (12.00-20.00) Ratio Glucose (74-99) mg/dL POC Glucose (mg/dL) 136 H (70-110) mg/dL Phosphorus (2.5-4.5) mg/dL Assessment and Plan Assessment: 1. Malfunctioning tunneled hemodialysis catheter 2. End-stage renal disease on hemodialysis 3. Diabetes mellitus Plan: 1. Will plan for tunneled dialysis catheter exchange 2. Patient may resume renal diet post dialysis exchange 3. Dialysis recommendations per nephrology 4. Rest of medical management per primary medical team 5. Patient cleared from vascular surgery for discharge following successful h emodialysis Thank you for this consultation, we will continue to follow. The impression and plan of care has been dictated as directed. Dr. Tomas I performed a history and examination of this patient, discussed the same with the dictator. I agree with the dictator's note ,documented as a scribe. Any additional findings or plans will be noted. Grabiel
--- NOTE | 2024-07-11 10:13 | P.OP ---
Date of Procedure: 07/11/24 Preoperative Diagnosis: ESRD, Malfunctioning tunneled catheter Postoperative Diagnosis: same Procedure(s) Performed: right tunneled dialysis catheter exchange under fluoroscopic guidance Conscious sedation x 38 minutes Anesthesia: local Surgeon: Magno Tomas Estimated Blood Loss (ml): 5 Pathology: none sent Condition: stable Disposition: floor Description of Procedure: After written and informed consent was obtained and all risks, benefits and competitions were described the patient was brought to the Occupational Therapy Supervisor and laid in a supine position. The area of the right neck was prepped and draped in the usual sterile fashion. Timeout was performed in normal fashion and antibiotics were administered prior to access. Local anesthetic was placed overlying the existing catheter at the neck and incision was created with an 11 blade scalpel and dissection was carried down to the catheter. The catheter was grasped and cut and guidewire was placed under direct visualization of fluoroscopy into the inferior vena cava. A small incision was created on the lateral aspect of the chest wall, lateral to the existing catheter. A 23 centimeter palindrome hemodialysis catheter was then tunneled from the chest wall to the neck. Serial dilation was then performed and breakaway sheath was placed into the internal jugular vein under direct visualization of fluoroscopy. The catheter was then placed within the break away sheath the sheath was removed. The ports were assessed for patency and ochoa and flushed easily and then were hep-locked. The catheter was then sutured in place. The existing catheter was then removed from the chest wall. The skin was then cleansed and dressings were placed. The patient tolerated procedure well.
--- NOTE | 2024-07-11 10:27 | IR ---
EXAMINATION TYPE: IR cvc insert central tunneled DATE OF EXAM: 07/11/2024 CLINICAL INDICATION: Female, 68 years old with history of dialysis cath exchange, 0.8 min fluoro, TECHNIQUE: Fluoroscopy. COMPARISON: None. FINDINGS: Fluoroscopic guidance was provided during dialysis catheter exchange procedure performed b y vascular surgeon. A total of 48 seconds of fluoroscopic time was utilized during the procedure and 177 spot images was acquired. Images acquired show partial visualization of large bore right interna l jugular dialysis catheter. TOTAL DAP = [id number] IMPRESSION: As Above. [facility], , 07/11/2024 10:24 AM
[2024-07-11] MEDS: carvediloL 3.125 MG TAB PO SCH (10:37)
[2024-07-11] MEDS: FOLIC ACID-VIT B COMPLEX-VIT C 1 CAP PO SCH (10:37)
[2024-07-11] MEDS: CLOPIDOGREL 75 MG TAB PO SCH (10:37)
[2024-07-11] MEDS: ALTEPLASE 2 MG VIAL (CATHFLO) IV STA (10:46)
--- NOTE | 2024-07-11 11:01 | XR ---
EXAMINATION TYPE: XR chest 1V confirm line [facility] DATE OF EXAM: 07/11/2024 CLINICAL INDICATION: Female, 68 years old with history of dialysis cath placement, 0.8 min fluoro, pr ogress study. TECHNIQUE: Single AP portable upright view of the chest is obtained. COMPARISON: Chest x-ray from April 29, 2024 FINDINGS: There is a large bore right internal jugular dialysis catheter terminating in right atrium . No pneumothorax is seen. Lungs remain clear. Cardiomegaly redemonstrated with atherosclerotic thora cic aorta. Surgical change of cervical spine is partially imaged. IMPRESSION: As above. [facility], , 07/11/2024 10:58 AM
--- NOTE | 2024-07-11 11:38 | P.NPCON ---
History of Present Illness - Reason for Consult end stage renal disease - History of Present Illness Reason for consultation: End-stage renal disease History of present illness: Patient is a 68-year-old female seen in renal consultation for end-stage renal disease. She is maintained on hemodialysis on Sunday schedule. Patient came to the hospital due to malfunctioning dialysis catheter. The dialysis catheter was exchanged this morning. Patient states her last hemodialysis treatment was on Sunday. She missed yesterday's treatment due to the malfunctioning catheter. Denies chest pain or shortness of breath. Patient has longstanding history of diabetes. She also has history of BKA. No vomiting or diarrhea. No fever or chills. She makes little urine. Vital signs are stable. General: No acute distress. HEENT: Head exam is unremarkable. LUNGS: No audible rhonchi or wheezes. HEART: Rate and Rhythm are regular. ABDOMEN: Nontender. EXTREMITITES: BKA noted. Trace edema. Past Medical History Past Medical History: Diabetes Mellitus, Dialysis, GERD/Reflux, Hyperlipidemia, Hypertension, Memory Impairment, Renal Disease, Thyroid Disorder Additional Past Medical History / Comment(s): hx steel syndrome left hand,. 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 neck cervical 4,5,6 fused. graft tie off 04/05/2017, eye laser surgery for diabetic retinopathy Past Anesthesia/Blood Transfusion Reactions: No Reported Reaction Past Psychological History: Anxiety, Depression Additional Psychological History / Comment(s): Single. Retired. No current tobacco or alcohol use. No experience. International travel. No animal exposures Smoking Status: Former smoker Past Alcohol Use History: None Reported Additional Past Alcohol Use History / Comment(s): smoked 25 years 1pack/wk quit 2002. Past Drug Use History: None Reported - Past Family History Mother Family Medical History: Diabetes Mellitus, Hypertension Additional Family Medical History / Comment(s): colon ca Father Family Medical History: Myocardial Infarction (SD) Medications and Allergies Home Medications Medication Instructions Recorded Confirmed Type Levothyroxine Sodium [Synthroid] 75 mcg PO DAILY 10/09/16 07/10/24 History Calcium Acetate [PhosLo] 667 mg PO TID-W/MEALS cap 02/27/19 07/10/24 Rx Latanoprost [Latanoprost 0.005%] 1 drop BOTH EYES HS 02/05/22 07/10/24 History Torsemide [Demadex] 20 mg PO BID 02/05/22 07/10/24 History Folic Acid/Vit B Complex and C 0.8 mg PO DAILY 09/15/23 07/10/24 History [Rosio-Thomas Tablet] Pregabalin [Lyrica] 75 mg PO HS 09/15/23 07/10/24 History carvediloL [Coreg] 3.125 mg PO SUMOWEFR@0900,2100 09/15/23 07/10/24 History Insulin Aspart (Niacinamide) See Protocol SQ TID-W/MEALS 04/28/24 07/10/24 History [Fiasp 100 Unit/ml Flextouch Pen] Insulin Glargine,Hum.rec.anlog 18 unit SQ DAILY 04/28/24 07/10/24 History [Basaglar Kwikpen U-100] Carboxymethylcellulose Sodium 1 drop BOTH EYES QID PRN 07/10/24 07/10/24 History [Refresh Tears] Clopidogrel [Plavix] 75 mg PO DAILY 07/10/24 07/10/24 History Ergocalciferol (Vitamin D2) 1,250 mcg PO DIRECTED 07/10/24 07/10/24 History [Drisdol (50,000 Iu)] Tirzepatide [Mounjaro] 2.5 mg SQ TU 07/10/24 07/10/24 History carvediloL [Coreg] 3.125 mg PO TUTHSA@0900,2100 PRN 07/10/24 07/10/24 History Allergies Allergy/AdvReac Type Severity Reaction Status Date / Time gabapentin Allergy Rash/Hives Verified 07/10/24 15:18 escitalopram [From Lexapro] AdvReac Hallucinati Verified 07/10/24 15:18 ons lisinopril AdvReac Cough Verified 07/10/24 15:18 morphine AdvReac Hallucinati Verified 07/10/24 15:18 ons quetiapine [From Seroquel] AdvReac Hallucinati Verified 07/10/24 15:18 ons Physical Exam Vitals: Vital Signs Temp Pulse Pulse Pulse Resp BP BP 07/11/24 08:00 16 07/11/24 07:00 97.9 F 85 16 07/11/24 02:00 98.0 F 81 18 147/85 07/10/24 19:07 98.0 F 80 18 187/83 07/10/24 17:01 98.0 F 82 18 189/66 07/10/24 16:28 98.2 F 79 18 192/101 BP Pulse Ox 07/11/24 08:00 07/11/24 07:00 190/82 96 07/11/24 02:00 97 07/10/24 19:07 98 07/10/24 17:01 94 L 07/10/24 16:28 96 Intake and Output 07/10/24 07/11/24 07/11/24 22:59 06:59 14:59 Intake Total 118 Balance 118 Intake: Oral 118 Other: # Voids 1 0 Weight 102.058 kg Results - Lab Results Most recent lab results Calcium 9.0 mg/dL (8.7-10.3) 07/11/24 03:30 Phosphorus 6.4 mg/dL (2.5-4.5) H 07/10/24 12:59 Magnesium 2.3 mg/dL (1.6-2.3) 07/10/24 12:59 07/10/24 12:59 07/11/24 03:30 Assessment and Plan Plan: Assessment: 1. End-stage renal disease maintained on hemodialysis on Sunday schedule via permacath. 2. Malfunctioning permacath status post exchange this morning. 3. Diabetes mellitus. 4. Chronic kidney disease mineral bone disease maintained on PhosLo. 5. Hypertension with chronic kidney disease. Plan: Currently seen while undergoing hemodialysis. Another treatment tomorrow per her outpatient schedule. Stop Lokelma. Add as needed hydralazine. Potential discharge after dialysis today. Thank you for the consultation. I will continue to follow the patient with you during her hospital stay.
[2024-07-11 12:35] LABS: Glucose,Whole Blood 129 mg/dL (70-110)
[2024-07-11] MEDS: ACETAMINOPHEN TAB 500 MG TAB PO PRN (16:10)
[2024-07-11 17:28] LABS: Glucose,Whole Blood 144 mg/dL (70-110)
--- NOTE | 2024-07-11 18:16 | P.HPIM ---
History of Present Illness H&P Date: 07/11/24 Chief Complaint: Malfunctioning dialysis catheter Pleasant 68-year-old patient follows with visiting physician Dr. Spencer. Chronic medical condition include diabetes, GERD, hyperlipidemia hypertension mild cognitive impairment, history of steal syndrome of the left hand. Diabetic neuropathy retinopathy. Has a right below-knee amputation with a prosthesis. Has been on hemodialysis for 8 years. Saturdays follows with smt operator Dr. Archer. Patient's right IJ dialysis catheter was not functioning. Coury incomplete dialysis on Sunday and no dialysis on . Today right IJ dialysis catheter was replaced by Dr. Genoveva lyons. Patient due for hemodialysis this afternoon. Breathing stable. No chest pain. Review of systems: GEN.: None EYES: None HEENT: None NECK: None RESPIRATORY: None CARDIOVASCULAR: None GASTROINTESTINAL: None GENITOURINARY: Does not make much urine] MUSCULOSKELETAL: Right below-knee amputation with a prosthesis LYMPHATICS: None HEMATOLOGICAL: None PSYCHIATRY: None NEUROLOGICAL: [Numbness in hand and feet Social history: Lives alone. Does use a wheelchair and a walker. Patient smoked for 25 years 1 pack a week stopped in 2002. No alcohol. Physical examination: VITAL SIGNS: 97.9, 85, 16, 1 9182, 96% room air GENERAL: BMI 32.3, reclining bed awake comfortable. EYES: Pupils equal. Conjunctiva kae l. HEENT: External appearance of nose and ears normal, oral cavity grossly normal. NECK: JVD not raised; masses not palpable. HEART: First and second heart sounds are normal; no edema. LUNGS: Respiratory rate normal; decreased breath sounds. Right upper chest wall dialysis catheter new 1 ABDOMEN: Soft, nontender, liver spleen not palpable, no masses palpable. PSYCH: Alert and oriented x3; mood and affect kae l. MUSCULOSKELETAL:No Clubbing/cyanosis;muscles-grossly intact. Right below-knee amputation. NEUROLOGICAL: Cranial nerves grossly intact; no facial asymmetry, power and sensation grossly intact. LYMPHATICS: No lymph nodes palpable in the axilla and neck INVESTIGATIONS, reviewed in the clinical context: July 11: Potassium 4.9 BUN 36.3 creatinine 11.4 White count 5.1 hemoglobin 10.7 platelets 188 Assessment plan: -Malfunctioning of right IJ dialysis catheter. Patient only had dialysis partially on Sunday and done yesterday. Today you right IJ dialysis catheter was placed by Carina. -End-stage kidney disease on hemodialysis. Sunday. Follows with smt operator Dr. Archer -. Diabetes mellitus type 2, chronically on insulin. Uncontrolled hypoglycemia this morning. Insulin Lantus 18 units. Follow Accu-Cheks sliding scale. Mounjaro -Diabetic peripheral neuropathy Lyrica -Hypothyroid Synthroid 75 mcg a day -Right below-knee amputation. 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 For hemodialysis today. Discussed with patient. Past Medical History Past Medical History: Diabetes Mellitus, Dialysis, GERD/Reflux, Hyperlipidemia, Hypertension, Memory Impairment, Renal Disease, Thyroid Disorder Additional Past Medical History / Comment(s): hx steel syndrome left hand,. 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 neck cervical 4,5,6 fused. graft tie off 04/05/2017, eye laser surgery for diabetic retinopathy Past Anesthesia/Blood Transfusion Reactions: No Reported Reaction Past Psychological History: Anxiety, Depression Additional Psychological History / Comment(s): Single. Retired. No current tobacco or alcohol use. No experience. International travel. No animal exposures Smoking Status: Former smoker Past Alcohol Use History: None Reported Additional Past Alcohol Use History / Comment(s): smoked 25 years 1pack/wk quit 2002. Past Drug Use History: None Reported - Past Family History Mother Family Medical History: Diabetes Mellitus, Hypertension Additional Family Medical History / Comment(s): colon ca Father Family Medical History: Myocardial Infarction (NM) Medications and Allergies Home Medications Medication Instructions Recorded Confirmed Type Levothyroxine Sodium [Synthroid] 75 mcg PO DAILY 10/09/16 07/10/24 History Calcium Acetate [PhosLo] 667 mg PO TID-W/MEALS cap 02/27/19 07/10/24 Rx Latanoprost [Latanoprost 0.005%] 1 drop BOTH EYES HS 02/05/22 07/10/24 History Torsemide [Demadex] 20 mg PO BID 02/05/22 07/10/24 History Folic Acid/Vit B Complex and C 0.8 mg PO DAILY 09/15/23 07/10/24 History [Rosio-Thomas Tablet] Pregabalin [Lyrica] 75 mg PO HS 09/15/23 07/10/24 History carvediloL [Coreg] 3.125 mg PO SUMOWEFR@0900,2100 09/15/23 07/10/24 History Insulin Aspart (Niacinamide) See Protocol SQ TID-W/MEALS 04/28/24 07/10/24 History [Fiasp 100 Unit/ml Flextouch Pen] Insulin Glargine,Hum.rec.anlog 18 unit SQ DAILY 04/28/24 07/10/24 History [Basaglar Kwikpen U-100] Carboxymethylcellulose Sodium 1 drop BOTH EYES QID PRN 07/10/24 07/10/24 History [Refresh Tears] Clopidogrel [Plavix] 75 mg PO DAILY 07/10/24 07/10/24 History Ergocalciferol (Vitamin D2) 1,250 mcg PO DIRECTED 07/10/24 07/10/24 History [Drisdol (50,000 Iu)] Tirzepatide [Mounjaro] 2.5 mg SQ TU 07/10/24 07/10/24 History carvediloL [Coreg] 3.125 mg PO TUTHSA@0900,2100 PRN 07/10/24 07/10/24 History Allergies Allergy/AdvReac Type Severity Reaction Status Date / Time gabapentin Allergy Rash/Hives Verified 07/10/24 15:18 escitalopram [From Lexapro] AdvReac Hallucinati Verified 07/10/24 15:18 ons lisinopril AdvReac Cough Verified 07/10/24 15:18 morphine AdvReac Hallucinati Verified 07/10/24 15:18 ons quetiapine [From Seroquel] AdvReac Hallucinati Verified 07/10/24 15:18 ons Physical Exam Vitals: Vital Signs Temp Pulse Pulse Pulse Resp BP BP 07/11/24 08:00 16 07/11/24 07:00 97.9 F 85 16 07/11/24 02:00 98.0 F 81 18 147/85 07/10/24 19:07 98.0 F 80 18 187/83 07/10/24 17:01 98.0 F 82 18 189/66 07/10/24 16:28 98.2 F 79 18 192/101 07/10/24 11:22 98.2 F 90 18 177/83 BP Pulse Ox 07/11/24 08:00 07/11/24 07:00 190/82 96 07/11/24 02:00 97 07/10/24 19:07 98 07/10/24 17:01 94 L 07/10/24 16:28 96 07/10/24 11:22 96 Intake and Output 07/10/24 07/11/24 07/11/24 22:59 06:59 14:59 Intake Total 118 Balance 118 Intake: Oral 118 Other: # Voids 1 0 Weight 102.058 kg Results CBC & Chem 7: 07/10/24 12:59 07/11/24 03:30 Labs: Abnormal Lab Results - Last 24 Hours (Table) 07/10/24 07/10/24 07/10/24 Range/Units 12:59 12:59 17:01 RBC 3.40 L (3.80-5.40) m/uL Hgb 10.7 L (11.4-16.0) gm/dL MCV 106.3 H (80.0-100.0) fL MCHC 29.5 L (31.0-37.0) g/dL RDW 15.9 H (11.5-15.5) % Lymphocytes # 0.9 L (1.0-4.8) k/uL Macrocytosis Marked A Potassium 5.3 H (3.5-5.1) mmol/L Chloride 97 L (98-107) mmol/L Carbon Dioxide 32 H (22-30) mmol/L Anion Gap (4.00-12.00) mmol/L BUN 36 H (7-17) mg/dL Creatinine 10.58 H* (0.52-1.04) mg/dL Est GFR (CKD-EPI) (>=60) BUN/Creatinine Ratio (12.00-20.00) Ratio Glucose 137 H (74-99) mg/dL POC Glucose (mg/dL) 132 H (70-110) mg/dL Phosphorus 6.4 H (2.5-4.5) mg/dL 07/10/24 07/11/24 07/11/24 Range/Units 20:17 03:30 03:37 RBC (3.80-5.40) m/uL Hgb (11.4-16.0) gm/dL MCV (80.0-100.0) fL MCHC (31.0-37.0) g/dL RDW (11.5-15.5) % Lymphocytes # (1.0-4.8) k/uL Macrocytosis Potassium (3.5-5.1) mmol/L Chloride (98-107) mmol/L Carbon Dioxide (22-30) mmol/L Anion Gap 14.90 H (4.00-12.00) mmol/L BUN 36.3 H (7-17) mg/dL Creatinine 11.4 H (0.52-1.04) mg/dL Est GFR (CKD-EPI) 3 L (>=60) BUN/Creatinine Ratio 3.18 L (12.00-20.00) Ratio Glucose 58 L (74-99) mg/dL POC Glucose (mg/dL) 265 H 57 L (70-110) mg/dL Phosphorus (2.5-4.5) mg/dL 07/11/24 07/11/24 Range/Units 03:54 08:47 RBC (3.80-5.40) m/uL Hgb (11.4-16.0) gm/dL MCV (80.0-100.0) fL MCHC (31.0-37.0) g/dL RDW (11.5-15.5) % Lymphocytes # (1.0-4.8) k/uL Macrocytosis Potassium (3.5-5.1) mmol/L Chloride (98-107) mmol/L Carbon Dioxide (22-30) mmol/L Anion Gap (4.00-12.00) mmol/L BUN (7-17) mg/dL Creatinine (0.52-1.04) mg/dL Est GFR (CKD-EPI) (>=60) BUN/Creatinine Ratio (12.00-20.00) Ratio Glucose (74-99) mg/dL POC Glucose (mg/dL) 136 H 117 H (70-110) mg/dL Phosphorus (2.5-4.5) mg/dL Thrombosis Risk Factor Assmnt - Choose All That Apply Any of the Below Risk Factors Present?: Yes Each Factor Represents 1 point: Obesity (BMI >25) Other Risk Factors: Yes Each Risk Factor Represents 2 Points: Age 61-74 years Other congenital or acquired thrombophilia - If yes, enter type in comment: No Thrombosis Risk Factor Assessment Total Risk Factor Score: 3 Thrombosis Risk Factor Assessment Level: Moderate Risk
[2024-07-11 18:53] VITALS: BP 180/89; PULSE 83; RESP 21; TEMP 98.6
--- NOTE | 2024-07-11 20:37 | P.DS ---
Providers Date of admission: 07/10/24 15:49 Expected date of discharge: 07/11/24 Attending physician: John Renteria Consults: 07/10/24 13:49 Consult Physician Urgent Consulting Provider: Magno Tomas Consult Reason/Comments: Dialysis catheter failure Do you want consulting provider notified?: Yes 07/10/24 15:08 Consult Physician Urgent Consulting Provider: Semaj Chu Consult Reason/Comments: ESRD Do you want consulting provider notified?: Yes Primary care physician: Raymond Spencer MD Hospital Course: Chief Complaint: Malfunctioning dialysis catheter Pleasant 68-year-old patient follows with visiting physician Dr. Spencer. Chronic medical condition include diabetes, GERD, hyperlipidemia hypertension mild cognitive impairment, history of steal syndrome of the left hand. Diabetic neuropathy retinopathy. Has a right below-knee amputation with a prosthesis. Has been on hemodialysis for 8 years. Saturdays follows with regulatory affairs strategy specialist Dr. Archer. Patient's right IJ dialysis catheter was not functioning. Coury incomplete dialysis on Sunday and no dialysis on . Today right IJ dialysis catheter was replaced by Dr. Genoveva lyons. Patient due for hemodialysis this afternoon. Breathing stable. No chest pain. Patient was dialyzed late in the day. Cleared by nephrology to go home. Review of systems: GEN.: None EYES: None HEENT: None NECK: None RESPIRATORY: None CARDIOVASCULAR: None GASTROINTESTINAL: None GENITOURINARY: Does not make much urine] MUSCULOSKELETAL: Right below-knee amputation with a prosthesis LYMPHATICS: None HEMATOLOGICAL: None PSYCHIATRY: None NEUROLOGICAL: [Numbness in hand and feet Social history: Lives alone. Does use a wheelchair and a walker. Patient smoked for 25 years 1 pack a week stopped in 2002. No alcohol. Physical examination: VITAL SIGNS: GENERAL: BMI 32.3, reclining bed awake comfortable. EYES: Pupils equal. Conjunctiva kae l. HEENT: External appearance of nose and ears normal, oral cavity grossly normal. NECK: JVD not raised; masses not palpable. HEART: First and second heart sounds are normal; no edema. LUNGS: Respiratory rate normal; decreased breath sounds. Right upper chest wall dialysis catheter new 1 ABDOMEN: Soft, nontender, liver spleen not palpable, no masses palpable. PSYCH: Alert and oriented x3; mood and affect kae l. MUSCULOSKELETAL:No Clubbing/cyanosis;muscles-grossly intact. Right below-knee amputation. NEUROLOGICAL: Cranial nerves grossly intact; no facial asymmetry, power and sensation grossly intact. LYMPHATICS: No lymph nodes palpable in the axilla and neck INVESTIGATIONS, reviewed in the clinical context: July 11: Potassium 4.9 BUN 36.3 creatinine 11.4 White count 5.1 hemoglobin 10.7 platelets 188 Assessment plan: -Malfunctioning of right IJ dialysis catheter. Patient only had dialysis partially on Sunday and done yesterday. Today you right IJ dialysis catheter was placed by Carina. -End-stage kidney disease on hemodialysis. Sunday. Follows with regulatory affairs strategy specialist Dr. Archer Dialyzed today -. Diabetes mellitus type 2, chronically on insulin. Uncontrolled hypoglycemia this morning. Insulin Lantus 18 units. Follow Accu-Cheks sliding scale. Mounjaro -Diabetic peripheral neuropathy Lyrica -Hypothyroid Synthroid 75 mcg a day -Right below-knee amputation. 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 neck cervical 4,5,6 fused. graft tie off 04/05/2017, eye laser surgery for diabetic retinopathy Past Anesthesia/Blood Transfusion Reactions: No Reported Reaction Past Psychological History: Anxiety, Depression Additional Psychological History / Comment(s): Single. Retired. No current tobacco or alcohol use. No experience. International travel. No animal exposures Smoking Status: Former smoker Past Alcohol Use History: None Reported Additional Past Alcohol Use History / Comment(s): smoked 25 years 1pack/wk quit 2002. Past Drug Use History: None Reported Plan - Discharge Summary Discharge Rx Participant: No New Discharge Prescriptions: Continue Levothyroxine Sodium [Synthroid] 75 mcg PO DAILY Calcium Acetate [PhosLo] 667 mg PO TID-W/MEALS cap Torsemide [Demadex] 20 mg PO BID carvediloL [Coreg] 3.125 mg PO SUMOWEFR@0900,2100 Insulin Aspart (Niacinamide) [Fiasp 100 Unit/ml Flextouch Pen] See Protocol SQ TID-W/MEALS carvediloL [Coreg] 3.125 mg PO TUTHSA@0900,2100 PRN PRN Reason: high bp Tirzepatide [Mounjaro] 2.5 mg SQ TU Ergocalciferol (Vitamin D2) [Drisdol (50,000 Iu)] 1,250 mcg PO DIRECTED Clopidogrel [Plavix] 75 mg PO DAILY Carboxymethylcellulose Sodium [Refresh Tears] 1 drop BOTH EYES QID PRN PRN Reason: dry eyes Latanoprost [Latanoprost 0.005%] 1 drop BOTH EYES HS Pregabalin [Lyrica] 75 mg PO HS Folic Acid/Vit B Complex and C [Rosio-Thomas Tablet] 0.8 mg PO DAILY Insulin Glargine,Hum.rec.anlog [Malgorzataaglar Immanuelikpen U-100] 18 unit SQ DAILY Discharge Medication List Levothyroxine Sodium [Synthroid] 75 mcg PO DAILY 10/09/16 [History] Calcium Acetate [PhosLo] 667 mg PO TID-W/MEALS cap 02/27/19 [Rx] Latanoprost [Latanoprost 0.005%] 1 drop BOTH EYES HS 02/05/22 [History] Torsemide [Demadex] 20 mg PO BID 02/05/22 [History] Folic Acid/Vit B Complex and C [Rosio-Thomas Tablet] 0.8 mg PO DAILY 09/15/23 [History] Pregabalin [Lyrica] 75 mg PO HS 09/15/23 [History] carvediloL [Coreg] 3.125 mg PO SUMOWEFR@0900,2100 09/15/23 [History] Insulin Aspart (Niacinamide) [Fiasp 100 Unit/ml Flextouch Pen] See Protocol SQ TID-W/MEALS 04/28/24 [History] Insulin Glargine,Hum.rec.anlog [Tito Fuller U-100] 18 unit SQ DAILY 04/28/24 [History] Carboxymethylcellulose Sodium [Refresh Tears] 1 drop BOTH EYES QID PRN 07/10/24 [History] Clopidogrel [Plavix] 75 mg PO DAILY 07/10/24 [History] Ergocalciferol (Vitamin D2) [Drisdol (50,000 Iu)] 1,250 mcg PO DIRECTED 07/10/24 [History] Tirzepatide [Mounjaro] 2.5 mg SQ TU 07/10/24 [History] carvediloL [Coreg] 3.125 mg PO TUTHSA@0900,2100 PRN 07/10/24 [History] Follow up Appointment(s)/Referral(s): Raymond Spencer MD [Primary Care Provider] - 1-2 days Patient Instructions/Handouts: Chronic Kidney Disease (DC), Tunneled Central Lines (DC), Tunneled Central Lines (GEN), End Stage Kidney Disease (ED), End Stage Kidney Disease (DC) Activity/Diet/Wound Care/Special Instructions: FOLLOW UP ADVISED, SOONER FOR WORSENING SYMPTOMS, PROBLEMS, OR CONCERNS. Discharge Disposition: HOME SELF-CARE
[2024-07-15] MEDS ORDERED: Tirzepatide [Mounjaro] 2.5 MG/0.5 ML Pen.Injctr SQ SCH (09:00)
== END 2024-07-11 18:36 | disposition home or self-care (01) ==
LOC: EC 11:17 → 6NMEDSUR 15:49
PROVIDERS: ADMIT Hospitalist; ATTEND Hospitalist
DX: T82.41XA Breakdown (mechanical) of vascular dialysis catheter, initial encounter (principal); Y71.2 Prosthetic and other implants, materials and accessory cardiovascular devices associated with adverse incidents; I12.0 Hypertensive chronic kidney disease with stage 5 chronic kidney disease or end stage renal disease; N18.6 End stage renal disease; E11.22 Type 2 diabetes mellitus with diabetic chronic kidney disease; N25.0 Renal osteodystrophy; E11.42 Type 2 diabetes mellitus with diabetic polyneuropathy; E11.649 Type 2 diabetes mellitus with hypoglycemia without coma; E03.9 Hypothyroidism, unspecified; R26.9 Unspecified abnormalities of gait and mobility; K21.9 Gastro-esophageal reflux disease without esophagitis; E78.5 Hyperlipidemia, unspecified; F32.A Depression, unspecified; F41.9 Anxiety disorder, unspecified; Z87.891 Personal history of nicotine dependence; Z89.511 Acquired absence of right leg below knee; Z99.2 Dependence on renal dialysis; Z79.02 Long term (current) use of antithrombotics/antiplatelets; Z79.4 Long term (current) use of insulin; Z79.84 Long term (current) use of oral hypoglycemic drugs; Z79.85 Long-term (current) use of injectable non-insulin antidiabetic drugs; Z79.890 Hormone replacement therapy; Z79.899 Other long term (current) drug therapy; Z88.5 Allergy status to narcotic agent
CPT/HCPCS: 36578; 96376; 96374; 99285; 36415; 80053; 80048; 83735; 84100; 85025; 85610; 85730; G0378 ×2; J2250; J2003; J3010; 90935

== ENCOUNTER → 2024-10-08 | Outpatient (CLI) | payer MEDICARE ==
--- NOTE | 2024-10-08 13:15 | MM ---
Reason for Exam: Screening (asymptomatic). Last mammogram was performed 5 year(s) and 0 month(s) ago. Patient History: Menarche at age 12. First Full-Term at age 16. Left ovary removed at age 46. Hysterectomy at age 46. 2012, Benign Excisional Biopsy on the right side. Risk Values: Yeni 5 year model risk: 1.3%. NCI Lifetime model risk: 3.6%. Prior Study Comparison: 04/07/2015 Screening Mammogram, [facility]. 04/20/2015 Screening Mammogram, [facility]. 10/17/2019 Bilateral Screening Mammogram, [facility]. Tissue Density: There are scattered areas of fibroglandular density. Findings: Analyzed By CAD. Catheter overlies the right axilla similar to prior. Benign-appearing vascular calcification bilaterally is redemonstrated. Biopsy clip right breast redemonstrated. There is no suspicious new group of microcalcifications or new suspicious mass in either breast. Overall Assessment: Benign, BI-RAD 2 Management: Screening Mammogram of both breasts in 1 year. . Patient should continue monthly self-breast exams. A clinical breast exam by your physician is recommended on an annual basis. This exam should not preclude additional follow-up of suspicious palpable abnormalities. Note on Yeni scores and lifetime risk: 1. A Yeni score greater than 3% is considered moderate risk. If this is the case, consider specialist referral to assess eligibility for a risk reducing agent. 2. If overall lifetime risk for the development of breast cancer is 20% or higher, the patient may qualify for future screening with alternating mammogram and breast MRI. [facility], , 10/08/2024 1:12 PM. Electronically signed and approved by: Jose Eduardo Knowles M.D.
== END | disposition home or self-care (01) ==
LOC: RADMAMWWP 12:22
PROVIDERS: ATTEND General Practice
DX: Z12.31 Encounter for screening mammogram for malignant neoplasm of breast (principal); R92.323 Mammographic fibroglandular density, bilateral breasts
CPT/HCPCS: 77063; 77067

== ENCOUNTER 2024-11-18 10:56 | Observation (INO) | payer MEDICARE ==
[2024-11-18 11:04] LABS: Glucose,Whole Blood 78 mg/dL (70-110)
[2024-11-18 11:44] LABS: Basophils # (A) 0.06 10*3/uL (0.00-0.10); Basophils % (A) 0.7 %; Eosinophils # (A) 0.28 10*3/uL (0.04-0.35); Eosinophils % (A) 3.4 %; HCT 30.9 % (37.2-46.3); HGB 9.9 g/dL (12.0-15.0); Lymphocytes # (A) 1.02 10*3/uL (0.90-5.00); Lymphocytes % (A) 12.3 %; MCH 32.5 pg (27.0-32.0); MCHC 32.0 g/dL (32.0-37.0); MCV 101.3 fL (80.0-97.0); Monocytes # (A) 0.51 10*3/uL (0.20-1.00); Monocytes % (A) 6.2 %; Neutrophils # (A) 6.37 10*3/uL (1.80-7.70); Neutrophils % (A) 77.0 %; Platelet Count 187 10*3/uL (140-440); RBC 3.05 10*6/uL (4.10-5.20); RDW 17.4 % (11.5-14.5); WBC 8.27 10*3/uL (4.50-10.00)
[2024-11-18 11:48] LABS: Glucose,Whole Blood 77 mg/dL (70-110)
[2024-11-18] MEDS: KETOROLAC 15 MG/ML 1 ML VIAL IVP STA (11:49)
[2024-11-18 12:10] LABS: Glucose,Whole Blood 80 mg/dL (70-110)
[2024-11-18 12:21] LABS: ALT 12 U/L (4-34); AST 19 U/L (14-36); African American GFR (CKD) 4 (>60 ml/min/1.73 sqM); Albumin 3.9 g/dL (3.5-5.0); Alkaline Phosphatase 97 U/L (38-126); Anion Gap 10 mmol/L; Blood Urea Nitrogen 51 mg/dL (7-17); Calcium 9.2 mg/dL (8.4-10.2); Carbon Dioxide 29 mmol/L (22-30); Chloride 101 mmol/L (98-107); Glucose 65 mg/dL (74-99); Magnesium 2.2 mg/dL (1.6-2.3); Non-African American GFR(CKD) 3 (>60 ml/min/1.73 sqM); Sodium 140 mmol/L (137-145); Total Protein 6.8 g/dL (6.3-8.2)
--- NOTE | 2024-11-18 12:35 | CT ---
EXAMINATION TYPE: CT cervical spine wo con DATE OF EXAM: 11/18/2024 12:07 PM COMPARISON: None. CLINICAL INDICATION: Female, 69 years old with history of right neck pain, rt neck pain, no injury, p ain TECHNIQUE: CT of the cervical spine is performed in the axial plane at 2 mm thick sections. Reconstr ucted images in the coronal, and sagittal plane are reviewed on the computer. Contrast used: mL of , (none if empty) Oral contrast used: (none if empty) CT DLP: 726.1 mGycm, Automated exposure control for dose reduction was used. FINDINGS: No acute fractures are evident. There is anterior cervical fusion C4-C6. Vertebral body alignment is normal. Anterior fusion of C4-C6 with loss of disc level. There is some mild loss of disc height. The remaini ng cervical spine. Vertebral body heights are preserved. No spinal canal stenosis is evident No neural foraminal stenosis is evident. Note is made of a posterior infiltrate or mass density in the right posterior apex measuring 3.3 x 1. 0 cm. Additional workup is recommended. Neoplasm is not excluded. IMPRESSION: 1. Prior anterior cervical fusion. No acute osseous abnormality radiographically apparent. 2. Mild degenerative disc changes through the remaining cervical spine. 3. Density within the posterior right lung apex. Additional workup is recommended with CT chest. [facility], Workstation: [facility], 11/18/2024 12:33 PM
--- NOTE | 2024-11-18 12:52 | ED ---
General Adult HPI - General Chief complaint: Recheck/Abnormal Lab/Rx Stated complaint: Low blood sugar Time Seen by Provider: 11/18/24 11:25 Source: patient, EMS, RN notes reviewed, old records reviewed Mode of arrival: ambulatory Limitations: no limitations - History of Present Illness Initial comments: 69-year-old female presents emergency department complaining of low blood sugar. Patient has a history of diabetes and is on long-acting as well as postprandial IV insulin. Patient has a history of diabetes, ESRD on hemodialysis via right permacath, hypertension, hyperlipidemia, who presents from dialysis for low blood sugar. They did not run dialysis. Patient was given juice and sugar improved but was sent here for further evaluation. Patient just started taking her long-acting insulin at night yesterday. Previously she was taking in the morning. Unknown if she took her long-acting insulin in the morning or in the evening. He has not missed dialysis and usually receives a Sunday. Is complaining of some left-sided neck pain which is chronic for the patient over the last few weeks without any obvious injury. Presents for further evaluation at this time. - Related Data Home Medications Medication Instructions Recorded Confirmed Levothyroxine Sodium [Synthroid] 75 mcg PO DAILY 10/09/16 11/18/24 Latanoprost [Latanoprost 0.005%] 1 drop BOTH EYES HS 02/05/22 11/18/24 Torsemide [Demadex] 20 mg PO BID 02/05/22 11/18/24 Folic Acid/Vit B Complex and C 0.8 mg PO DAILY 09/15/23 11/18/24 [Rosio-Thomas Tablet] Pregabalin [Lyrica] 75 mg PO HS 09/15/23 11/18/24 Insulin Aspart (Niacinamide) 2 - 12 units SQ AC-TID PRN 04/28/24 11/18/24 [Fiasp 100 Unit/ml Flextouch Pen] Clopidogrel [Plavix] 75 mg PO DAILY 07/10/24 11/18/24 Ergocalciferol (Vitamin D2) 1,250 mcg PO TU 07/10/24 11/18/24 [Drisdol (50,000 Iu)] carvediloL [Coreg] 3.125 mg PO BID 07/10/24 11/18/24 Pantoprazole Sodium 40 mg PO DAILY 09/29/24 11/18/24 Atorvastatin [Lipitor] 10 mg PO DAILY 09/30/24 11/18/24 Insulin Degludec [Insulin Degludec 18 units SQ DAILY 11/18/24 11/18/24 Pen (U-100)] Tirzepatide [Mounjaro] 5 mg SQ MO 11/18/24 11/18/24 prednisoLONE ACETATE 1% OPHTH 1 drops BOTH EYES HS 11/18/24 11/18/24 [Pred Forte 1%] Previous Rx's Medication Instructions Recorded Calcium Acetate [PhosLo] 667 mg PO TID-W/MEALS cap 02/27/19 Allergies Allergy/AdvReac Type Severity Reaction Status Date / Time gabapentin Allergy Rash/Hives Verified 11/18/24 11:59 escitalopram [From Lexapro] AdvReac Hallucinati Verified 11/18/24 11:59 ons lisinopril AdvReac Cough Verified 11/18/24 11:59 morphine AdvReac Hallucinati Verified 11/18/24 11:59 ons quetiapine [From Seroquel] AdvReac Hallucinati Verified 11/18/24 11:59 ons Review of Systems ROS Statement: Those systems with pertinent positive or pertinent negative responses have been documented in the HPI. Review of Systems: CONST: Denies fever EYES: Denies blurry vision ENT: Denies nasal congestion C/V: Denies Chest pain RESP: Denies shortness of breath GI: Denies abdominal pain : Denies dysuria SKIN: Denies rash. MSK: Endorses neck pain NEURO: Denies headache ROS Other: All systems not noted in ROS Statement are negative. Past Medical History Past Medical History: Diabetes Mellitus, Dialysis, GERD/Reflux, Hyperlipidemia, Hypertension, Memory Impairment, Renal Disease, Thyroid Disorder Additional Past Medical History / Comment(s): hx steel syndrome left hand, -. 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 neck cervical 4,5,6 fused. graft tie off 04/05/2017, eye laser surgery for diabetic retinopathy, Past Anesthesia/Blood Transfusion Reactions: No Reported Reaction Additional Past Anesthesia/Blood Transfusion Reaction / Comment(s): no blood reactions Past Psychological History: No Psychological Hx Reported Smoking Status: Former smoker Past Alcohol Use History: None Reported Past Drug Use History: None Reported - Past Family History Mother Family Medical History: Diabetes Mellitus, Hypertension Additional Family Medical History / Comment(s): colon ca Father Family Medical History: Myocardial Infarction (NM) General Exam - General Exam Comments Initial Comments: General: Appears in no acute distress. HEAD: Normal with no signs of head trauma. EYES: PERRLA, EOMI, conjunctiva normal, no discharge. ENT: Hearing grossly intact, normal oropharynx. RESPIRATORY: Clear breath sounds bilaterally. No wheezes, rales, or rhonchi. C/V: Regular rate and rhythm. S1 and S2 auscultated, no edema, peripheral pulses 2+ and intact throughout. Patient has right chest permacath in place for dialysis. Site appears well. ABD: Abd is soft, nontender, nondistended EXT: Normal range of motion, no obvious deformity. Tenderness to palpation mostly of the left sided trapezius muscle. No significant midline tenderness to palpation of the cervical spine. SKIN: No rashes or lesions observed on exposed skin. NEURO: Alert and oriented x 4. No focal deficits. Limitations: no limitations Course Vital Signs 11/18/24 11/18/24 10:59 12:00 Temperature 98.5 F Pulse Rate 82 81 Respiratory 18 16 Rate Blood Pressure 176/92 183/94 O2 Sat by Pulse 98 98 Oximetry Medical Decision Making - Medical Decision Making Was pt. sent in by a medical professional or institution (, PA, IN HOME CAREGIVER, urgent care, hospital, or senior care...) When possible be specific @ -No Did you speak to anyone other than the patient for history (EMS, parent, family, police, friend...)? What history was obtained from this source @ -No Did you review nursing and triage notes (agree or disagree)? Why? @ -I reviewed and agree with nursing and triage notes Were old charts reviewed (outside hosp., previous admission, EMS record, old EKG, old radiological studies, urgent care reports/EKG's, senior care records)? Report findings @ -Compared today's EKG with EKG from July 2023 with no significant acute change. Differential Diagnosis (chest pain, altered mental status, abdominal pain women, abdominal pain men, vaginal bleeding, weakness, fever, dyspnea, syncope, headache, dizziness, GI bleed, back pain, seizure, CVA, palpatations, mental health, musculoskeletal)? @ -Missed dialysis, electrolyte abnormality, neck strain, hypoglycemia. This list is not all inclusive. EKG interpreted by me (3pts min.). @ -As above X-rays interpreted by me (1pt min.). @ -None done CT interpreted by me (1pt min.). @ -CT cervical spine shows chronic degenerative changes with no obvious acute traumatic injury. U/S interpreted by me (1pt. min.). @ -None done What testing was considered but not performed or refused? (CT, X-rays, U/S, labs)? Why? @ -None What meds were considered but not given or refused? Why? @ -None Did you discuss the management of the patient with other professionals (professionals i.e. , PA, IN HOME CAREGIVER, lab, RT, psych nurse, sr. social media & mobile manager, dynamotor repairer, teacher, chief scientific officer, piano case and bench assembler)? Give summary @ -I spoke with the admitting provider, Dr. Augustine who accepted the patient. Spoke with Dr. Archer who will arrange for dialysis. Was smoking cessation discussed for >3mins.? @ -No Was critical care preformed (if so, how long)? @ -yes, 35 minutes Were there social determinants of health that impacted care today? How? (Homelessness, low income, unemployed, alcoholism, drug addiction, transportation, low edu. Level, literacy, decrease access to med. care, [place] [facility], rehab)? @ -No Was there de-escalation of care discussed even if they declined (Discuss DNR or withdrawal of care, Hospice)? DNR status @ -No What co-morbidities impacted this encounter? (DM, HTN, Smoking, COPD, CAD, Cancer, CVA, ARF, Chemo, Hep., AIDS, mental health diagnosis, sleep apnea, morbid obesity)? @ -None Was patient admitted / discharged? Hospital course, mention meds given and route, prescriptions, significant lab abnormalities, going to OR and other pertinent info. @ -Patient presents for missed dialysis, as well as hyperglycemia. Was hypoglycemic to 55 at dialysis. This did improve with food but was sent here for further evaluation. Presents with blood sugar of 78. Given food we will continue to monitor while she is in the department. Patient was in agreement this plan. Due to patient's neck pain we will obtain CT cervical spine as well as EKG and screening labs. CT shows no obvious acute injury. EKG shows no obvious acute ischemic process. Laboratory studies remarkable for Hyperkalemia of 7.0 as well as elevated BUN and creatinine of 51 and 10.55. On reevaluation, pain is improved. Accu-Cheks are within acceptable limits. I update the patient. She will be given hyperkalemia cocktail but we will avoid the insulin administration at this time. She was in agreement this plan. Patient will be admitted for dialysis and the hyperkalemia. I spoke with the admitting provider, Dr. Augustine who accepted the patient. Spoke with Dr. Archer who will arrange for dialysis. Undiagnosed new problem with uncertain prognosis? @ -No Drug Therapy requiring intensive monitoring for toxicity (Heparin, Nitro, Insulin, Cardizem)? @ -No Were any procedures done? @ -No Diagnosis/symptom? @ -Hypoglycemia in the setting of insulin-dependent diabetes, hyperkalemia with missed dialysis, neck strain Acute, or Chronic, or Acute on Chronic? @ -Acute Uncomplicated (without systemic symptoms) or Complicated (systemic symptoms)? @ -complicated Side effects of treatment? @ -None Exacerbation, Progression, or Severe Exacerbation] @ -No Poses a threat to life or bodily function? @ -Potentially, yes - Lab Data Result diagrams: 11/18/24 11:39 11/18/24 11:39 Lab Results 11/18/24 11/18/24 11/18/24 Range/Units 11:03 11:39 11:39 WBC 8.27 (4.50-10.00) 10*3/uL RBC 3.05 L (4.10-5.20) 10*6/uL Hgb 9.9 L (12.0-15.0) g/dL Hct 30.9 L (37.2-46.3) % MCV 101.3 H (80.0-97.0) fL MCH 32.5 H (27.0-32.0) pg MCHC 32.0 (32.0-37.0) g/dL Plt Count 187 (140-440) 10*3/uL MPV 12.5 H (9.5-12.2) fL Immature Gran % (Auto) 0.4 % Neutrophils % 77.0 % Lymphocytes % 12.3 % Monocytes % 6.2 % Eosinophils % 3.4 % Basophils % 0.7 % Immature Gran # 0.03 (0.00-0.04) 10*3/uL Neutrophils # 6.37 (1.80-7.70) 10*3/uL Lymphocytes # 1.02 (0.90-5.00) 10*3/uL Monocytes # 0.51 (0.20-1.00) 10*3/uL Eosinophils # 0.28 (0.04-0.35) 10*3/uL Basophils # 0.06 (0.00-0.10) 10*3/uL Sodium 140 (137-145) mmol/L Potassium 7.0 H* (3.5-5.1) mmol/L Chloride 101 (98-107) mmol/L Carbon Dioxide 29 (22-30) mmol/L Anion Gap 10 mmol/L BUN 51 H (7-17) mg/dL Creatinine 10.55 H* (0.52-1.04) mg/dL Est GFR (CKD-EPI)AfAm 4 (>60 ml/min/1.73 sqM) Est GFR (CKD-EPI)NonAf 3 (>60 ml/min/1.73 sqM) Glucose 65 L (74-99) mg/dL POC Glucose (mg/dL) 78 (70-110) mg/dL POC Glu Nursing Home Manager ID Belval Sara Calcium 9.2 (8.4-10.2) mg/dL Magnesium 2.2 (1.6-2.3) mg/dL Total Bilirubin 0.5 (0.2-1.3) mg/dL AST 19 (14-36) U/L ALT 12 (4-34) U/L Alkaline Phosphatase 97 (38-126) U/L Total Protein 6.8 (6.3-8.2) g/dL Albumin 3.9 (3.5-5.0) g/dL 11/18/24 11/18/24 11/18/24 Range/Units 11:47 12:09 12:57 WBC (4.50-10.00) 10*3/uL RBC (4.10-5.20) 10*6/uL Hgb (12.0-15.0) g/dL Hct (37.2-46.3) % MCV (80.0-97.0) fL MCH (27.0-32.0) pg MCHC (32.0-37.0) g/dL Plt Count (140-440) 10*3/uL MPV (9.5-12.2) fL Immature Gran % (Auto) % Neutrophils % % Lymphocytes % % Monocytes % % Eosinophils % % Basophils % % Immature Gran # (0.00-0.04) 10*3/uL Neutrophils # (1.80-7.70) 10*3/uL Lymphocytes # (0.90-5.00) 10*3/uL Monocytes # (0.20-1.00) 10*3/uL Eosinophils # (0.04-0.35) 10*3/uL Basophils # (0.00-0.10) 10*3/uL Sodium (137-145) mmol/L Potassium (3.5-5.1) mmol/L Chloride (98-107) mmol/L Carbon Dioxide (22-30) mmol/L Anion Gap mmol/L BUN (7-17) mg/dL Creatinine (0.52-1.04) mg/dL Est GFR (CKD-EPI)AfAm (>60 ml/min/1.73 sqM) Est GFR (CKD-EPI)NonAf (>60 ml/min/1.73 sqM) Glucose (74-99) mg/dL POC Glucose (mg/dL) 77 80 94 (70-110) mg/dL POC Glu Nursing Home Manager ID [address] Foster Medora Kwaku [place] Calcium (8.4-10.2) mg/dL Magnesium (1.6-2.3) mg/dL Total Bilirubin (0.2-1.3) mg/dL AST (14-36) U/L ALT (4-34) U/L Alkaline Phosphatase (38-126) U/L Total Protein (6.3-8.2) g/dL Albumin (3.5-5.0) g/dL - EKG Data -: EKG Interpreted by Me EKG Comments: 12-lead Electrocardiogram Interpretation Note EKG was reviewed and interpreted by myself. 12-lead ECG performed at 1144 is interpreted by me as revealing normal sinus rhythm at a rate of 76 beats per minute. Taylors is normal. AR interval is 252 ms, QRS duration is 90 ms, QTc is 420 ms.. There were no ST or T wave abnormalities to suggest myocardial ischemia or injury. R wave progression across the precordium was satisfactory. By my interpretation this EKG is non-diagnostic for acute ischemia. Critical Care Time Critical Care Time: Yes Total Critical Care Time: 35 Disposition Clinical Impression: Missed dialysis, Hypoglycemia, Hyperkalemia, Neck strain Disposition: ADMITTED IP TO THIS HOSP Condition: Stable Referrals: Raymond Spencer MD [Primary Care Provider] - 1-2 days Time of Disposition: 13:18
[2024-11-18 12:58] LABS: Glucose,Whole Blood 94 mg/dL (70-110)
[2024-11-18 13:01] LABS: Potassium 7.0 mmol/L (3.5-5.1)
[2024-11-18] MEDS ORDERED: NALOXONE 0.4 MG/ML 1 ML VIAL IV PRN (13:18)
[2024-11-18] MEDS ORDERED: ONDANSETRON 4 MG/2 ML VIAL IVP PRN (13:18)
[2024-11-18] MEDS: CALCIUM GLUCONATE IN NACL 1 GM in SALINE 1 100ML.BAG IVPB ONE (13:45)
[2024-11-18] MEDS: SODIUM BICARB 8.4% 50 ML SYR (1 MEQ/ML) IV ONE (13:45)
[2024-11-18] MEDS: SODIUM ZIRCONIUM CYCLOSILICATE 10 GM PACKET PO ONE (13:53)
[2024-11-18] MEDS: ALBUTEROL NEB (CONC) 2.5 MG/0.5 ML INHALATION ONE (13:59)
[2024-11-18] MEDS ORDERED: DEXTROSE 50% SYRINGE 50 ML IVP PRN ×2 (15:32)
[2024-11-18 17:36] LABS: Glucose,Whole Blood 90 mg/dL (70-110)
[2024-11-18] MEDS: CALCIUM ACETATE 667 MG TAB PO SCH (17:36)
[2024-11-18] MEDS: INSULIN LISPRO (HumaLOG) 100 UNIT/ML 10 mL VL SQ SCH (17:39)
[2024-11-18] MEDS: HEPARIN SODIUM,PORCINE 5,000 UNIT/ML 1 ML VIAL SQ SCH (17:40)
--- NOTE | 2024-11-18 17:55 | P.HPIM ---
History of Present Illness H&P Date: 11/18/24 History of Presenting Illness: Patient is a very pleasant 69-year-old female with a past medical history of ESRD on hemodialysis Sunday//Saturdays, CAD, hypertension, hyperlipidemia, anemia of chronic disease, insulin-dependent diabetes mellitus with diabetic neuropathy and right BKA, and hypothyroidism. Patient presented to our facility from her dialysis center secondary to hypoglycemia. Patient reports she was feeling shaky, nauseous, cool and clammy. She reports that her long-acting insulin was changed yesterday to take in the evening instead of the morning and she does not remember if she took it yesterday morning and again last night, but states her blood sugars were low throughout the night and stayed in the 50s. Patient reports she was drinking orange juice and eating peanut butter but could not get her blood glucose levels to go up. Patient states she went to dialysis as scheduled and upon arrival there they checked her blood sugar, provided her with some juice and sugar and she remained low so they called EMS and she was sent to the emergency department for evaluation. Patient denies having any fevers, chills, headache, lightheadedness, dizziness, chest pain, palpitations, shortness of breath, cough or congestion, abdominal pain, episodes of vomiting, or any other complaints at this time. She reports she produces very minimal urinary output secondary to her ESRD. Patient does report right sided neck pain with hx of cervical fusion but denies having any falls or injuries. Upon arrival to our facility, patient underwent evaluation in the emergency department. Vital signs upon arrival show blood pressure 176/92, heart rate 82, respiratory rate 18, temp 98.5 F, and SpO2 of 98% on room air. EKG was completed showing normal sinus rhythm with a first-degree AV block with NV interval of [address] cervical spine showing prior anterior cervical fusion with no acute osseous abnormality, mild degenerative disc changes throughout the remaining cervical region, and a density within the posterior right lung apex recommending further workup with a CT chest. Labs completed and reviewed. CBC showing macrocytic anemia with hemoglobin of 9.9, hematocrit 30.9, MCV of 101.3, and MCH of 32.5. BMP showing hyperkalemia with potassium of 7.0 and consistent with known ESRD with BUN of 51, creatinine of 10.55, GFR of 3. Blood glucose was 65. Calcium 9.2. Magnesium 2.2. Liver profile unremarkable. Patient was given hyperkalemia cocktail in the emergency department and admitted under our services with consultation to nephrology for management of urgent dialysis. Review of systems: Pertinent positives and negatives as discussed in HPI, a complete review of systems was performed and all other systems are negative. Physical exam: Vital signs reviewed and stable. General: Nontoxic, no distress and appears stated age. Derm: Skin warm and dry, normal coloration for ethnicity. Head: Atraumatic, normocephalic and symmetric. Eyes: EOM's intact, no lid lag, and anicteric sclera Mouth: no lip lesions, mucus membranes moist Cardiovascular: regular rate and rhythm with normal S1S2, no murmur, and cap refill < 2 seconds. Permacath right anterior chest. Lungs: Respirations even, regular, and unlabored on room air. Lungs CTA bilaterally, no rhonchi, no rales, no wheezing, and no accessory muscle usage. Abdominal: soft, nontender to palpation, no guarding, no appreciable organomegaly Ext: No gross muscle atrophy, scant edema left lower extremity, right BKA with prosthesis in place. Neuro: Speech clear, face symmetrical and CN II-XII grossly intact with no noted focal neuro deficits Psych: Alert and oriented to person, place, time, and situation. Appropriate and pleasant affect. Assessment and Plan of Care: ESRD in need of dialysis Hyperkalemia, secondary to above Anemia of chronic disease, secondary to ESRD -Potassium 7.0. Patient was provided with hyperkalemia cocktail and light technician at bedside initiating hemodialysis at this time. -Nephrology consulted for management of dialysis. -EKG reviewed, patient to remain on continuous telemetry monitoring. -Patient educated on the importance of avoiding foods high in potassium such as the orange juice she reported drinking throughout the night. -Repeat BMP for follow-up on potassium levels postdialysis -Continue calcium acetate 667 mg 3 times daily with meals and torsemide 20 mg twice daily. Insulin-dependent diabetes melitis with hypoglycemia -Likely secondary to home medication error. -Continue close monitoring of blood glucose levels every 4 hours. Patient p laced on glycemic protocol with Humalog sliding scale. Will hold long-acting insulin pending stabilization of blood glucose levels. Neck pain CT cervical spine showing prior anterior cervical fusion with no acute osseous abnormality, mild degenerative disc changes throughout the remaining cervical region, and a density within the posterior right lung apex recommending further workup with a CT chest. Order placed for CT for further follow-up Hypertension CAD Hyperlipidemia Monitor vital signs and continue daily medication regimen with carvedilol 3.125 mg twice daily, atorvastatin 10 mg daily, Plavix 75 mg daily, and torsemide 20 mg twice daily. Hypothyroidism Continue daily medication regimen with levothyroxine 75 mcg daily. Data and imaging reviewed: As stated above in HPI CODE STATUS: Full code DVT prophylaxis: Heparin Discussed with: Patient, RN, and ED physician Anticipated discharge date: Pending clinical course Anticipated discharge place: Home Patient was seen independently by Nurse Practitioner. This document was prepared using [employer] dictation software. Please allow for errors in curer foam rubber while rare they do occur. Jimmy Walsh NP rendered care for this patient independently, reviewed the findings and plan as documented in the note above and agree with plan. I did not physically speak with or examine the patient on this date. Past Medical History Past Medical History: Diabetes Mellitus, Dialysis, GERD/Reflux, Hyperlipidemia, Hypertension, Memory Impairment, Renal Disease, Thyroid Disorder Additional Past Medical History / Comment(s): hx steel syndrome left hand, --sa. 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 neck cervical 4,5,6 fused. graft tie off 04/05/2017, eye laser surgery for diabetic retinopathy, Past Anesthesia/Blood Transfusion Reactions: No Reported Reaction Additional Past Anesthesia/Blood Transfusion Reaction / Comment(s): no blood reactions Past Psychological History: No Psychological Hx Reported Smoking Status: Former smoker Past Alcohol Use History: None Reported Past Drug Use History: None Reported - Past Family History Mother Family Medical History: Diabetes Mellitus, Hypertension Additional Family Medical History / Comment(s): colon ca Father Family Medical History: Myocardial Infarction ([place]) Medications and Allergies Home Medications Medication Instructions Recorded Confirmed Type Levothyroxine Sodium [Synthroid] 75 mcg PO DAILY 10/09/16 11/18/24 History Calcium Acetate [PhosLo] 667 mg PO TID-W/MEALS cap 02/27/19 11/18/24 Rx Latanoprost [Latanoprost 0.005%] 1 drop BOTH EYES HS 02/05/22 11/18/24 History Torsemide [Demadex] 20 mg PO BID 02/05/22 11/18/24 History Folic Acid/Vit B Complex and C 0.8 mg PO DAILY 09/15/23 11/18/24 History [Rosio-Thomas Tablet] Pregabalin [Lyrica] 75 mg PO HS 09/15/23 11/18/24 History Insulin Aspart (Niacinamide) 2 - 12 units SQ AC-TID PRN 04/28/24 11/18/24 History [Fiasp 100 Unit/ml Flextouch Pen] Clopidogrel [Plavix] 75 mg PO DAILY 07/10/24 11/18/24 History Ergocalciferol (Vitamin D2) 1,250 mcg PO TU 07/10/24 11/18/24 History [Drisdol (50,000 Iu)] carvediloL [Coreg] 3.125 mg PO BID 07/10/24 11/18/24 History Pantoprazole Sodium 40 mg PO DAILY 09/29/24 11/18/24 History Atorvastatin [Lipitor] 10 mg PO DAILY 09/30/24 11/18/24 History Insulin Degludec [Insulin Degludec 18 units SQ DAILY 11/18/24 11/18/24 History Pen (U-100)] Tirzepatide [Mounjaro] 5 mg SQ MO 11/18/24 11/18/24 History prednisoLONE ACETATE 1% OPHTH 1 drops BOTH EYES HS 11/18/24 11/18/24 History [Pred Forte 1%] Allergies Allergy/AdvReac Type Severity Reaction Status Date / Time gabapentin Allergy Rash/Hives Verified 11/18/24 11:59 escitalopram [From Lexapro] AdvReac Hallucinati Verified 11/18/24 11:59 ons lisinopril AdvReac Cough Verified 11/18/24 11:59 morphine AdvReac Hallucinati Verified 11/18/24 11:59 ons quetiapine [From Seroquel] AdvReac Hallucinati Verified 11/18/24 11:59 ons Physical Exam Vitals: Vital Signs Temp Pulse Resp BP Pulse Ox 11/18/24 14:12 80 11/18/24 14:00 83 11/18/24 12:00 81 16 183/94 98 11/18/24 10:59 98.5 F 82 18 176/92 98 Intake and Output 11/18/24 11/18/24 11/18/24 06:59 14:59 22:59 Other: Weight 104.326 kg Results CBC & Chem 7: 11/18/24 11:39 11/18/24 11:39 Labs: Abnormal Lab Results - Last 24 Hours (Table) 11/18/24 11/18/24 Range/Units 11:39 11:39 RBC 3.05 L (4.10-5.20) 10*6/uL Hgb 9.9 L (12.0-15.0) g/dL Hct 30.9 L (37.2-46.3) % MCV 101.3 H (80.0-97.0) fL MCH 32.5 H (27.0-32.0) pg MPV 12.5 H (9.5-12.2) fL Potassium 7.0 H* (3.5-5.1) mmol/L BUN 51 H (7-17) mg/dL Creatinine 10.55 H* (0.52-1.04) mg/dL Glucose 65 L (74-99) mg/dL
[2024-11-18] MEDS: ERGOCALCIFEROL 1,250 MCG (50,000 IU) CAPSULE PO SCH (19:44)
[2024-11-18 20:09] LABS: Glucose,Whole Blood 145 mg/dL (70-110)
[2024-11-18] MEDS: TORSEMIDE 20 MG TAB PO SCH (20:53)
[2024-11-18] MEDS: PREGABALIN 75 MG CAP PO SCH (20:54)
[2024-11-18 21:37] LABS: Glucose,Whole Blood 140 mg/dL (70-110)
[2024-11-18] MEDS: LATANOPROST 0.005% OPHTH DROPS 2.5 ML BTL BOTH EYES SCH (23:58)
[2024-11-18] MEDS: prednisoLONE ACETATE 1% OPHTH DROPS 5 ML BTL BOTH EYES SCH (23:58)
[2024-11-19] MEDS: ACETAMINOPHEN TAB 325 MG TAB PO PRN (00:04)
[2024-11-19 00:24] LABS: Glucose,Whole Blood 135 mg/dL (70-110)
[2024-11-19] MEDS: ARTIFICIAL TEARS-HYPROMELLOSE DROPS 15 ML BTL BOTH EYES PRN (00:25)
--- NOTE | 2024-11-19 00:38 | CT ---
EXAMINATION TYPE: CT chest wo con DATE OF EXAM: 11/18/2024 9:55 PM COMPARISON: 02/04/2022, 10/19/2023 CLINICAL INDICATION: Female, 69 years old with history of density within the posterior right lung ape x, Density within the posterior right lung apex TECHNIQUE: Axial images were obtained at 5 mm thick sections. Reconstructed images are reviewed on [employer] computer in the coronal plane. Contrast used: mL of , (none if empty) Oral contrast used: (none if empty) CT DLP: 570.1 mGycm, Automated exposure control for dose reduction was used. FINDINGS: Portion of the thyroid visualized is normal. There is a lobular density in the posterior right lung apex measuring 2.4 x 1.3 cm. This was present previously and appears similar. No enlarged mediastinal or hilar adenopathy is evident. The ascending aorta diameter at the level o f the main pulmonary artery is 2.3 cm. The main pulmonary artery diameter at the bifurcation is 3.1 cm. Moderate coronary artery calcifications present. Limited CT sections are obtained through the upper abdomen. Abdomen is essentially unremarkable. IMPRESSION: 1. No interval growth in the posterior right apical density [facility], Workstation: [id number], 11/19/2024 12:35 AM
[2024-11-19 04:09] LABS: Glucose,Whole Blood 99 mg/dL (70-110)
[2024-11-19 07:17] LABS: Basophils # (A) 0.03 10*3/uL (0.00-0.10); Basophils % (A) 0.5 %; Eosinophils # (A) 0.27 10*3/uL (0.04-0.35); Eosinophils % (A) 4.9 %; HCT 27.4 % (37.2-46.3); HGB 8.8 g/dL (12.0-15.0); Lymphocytes # (A) 0.93 10*3/uL (0.90-5.00); Lymphocytes % (A) 16.8 %; MCH 32.1 pg (27.0-32.0); MCHC 32.1 g/dL (32.0-37.0); MCV 100.0 fL (80.0-97.0); Monocytes # (A) 0.39 10*3/uL (0.20-1.00); Monocytes % (A) 7.1 %; Neutrophils # (A) 3.90 10*3/uL (1.80-7.70); Neutrophils % (A) 70.5 %; Platelet Count 164 10*3/uL (140-440); RBC 2.74 10*6/uL (4.10-5.20); RDW 17.5 % (11.5-14.5); WBC 5.53 10*3/uL (4.50-10.00)
[2024-11-19 07:33] LABS: ALT 10 U/L (4-34); AST 17 U/L (14-36); African American GFR (CKD) 5 (>60 ml/min/1.73 sqM); Albumin 3.2 g/dL (3.5-5.0); Alkaline Phosphatase 85 U/L (38-126); Anion Gap 7 mmol/L; Blood Urea Nitrogen 29 mg/dL (7-17); Calcium 8.5 mg/dL (8.4-10.2); Carbon Dioxide 30 mmol/L (22-30); Chloride 101 mmol/L (98-107); Glucose 109 mg/dL (74-99); Magnesium 2.0 mg/dL (1.6-2.3); Non-African American GFR(CKD) 5 (>60 ml/min/1.73 sqM); Potassium 4.9 mmol/L (3.5-5.1); Sodium 138 mmol/L (137-145); Total Protein 5.9 g/dL (6.3-8.2)
[2024-11-19 08:26] LABS: Glucose,Whole Blood 151 mg/dL (70-110)
[2024-11-19] MEDS: ATORVASTATIN 10 MG TAB PO SCH (08:44)
[2024-11-19] MEDS: CLOPIDOGREL 75 MG TAB PO SCH (08:44)
[2024-11-19] MEDS: PANTOPRAZOLE 40 MG TABLET PO SCH (08:44)
[2024-11-19] MEDS: LEVOTHYROXINE 75 MCG TAB PO SCH (08:44)
[2024-11-19] MEDS: FOLIC ACID-VIT B COMPLEX-VIT C 1 CAP PO SCH (08:45)
--- NOTE | 2024-11-19 11:15 | P.NPCON ---
History of Present Illness - Reason for Consult end stage renal disease - History of Present Illness Patient is a 69-year-old female with end-stage renal disease on hemodialysis on Sunday schedule. Patient is admitted to the hospital due to severe hypoglycemia. There was recent change in the dose of insulin and it appears that patient may have taken an extra dose. Her blood sugar remained quite low throughout the night and belt turner at dialysis and she was subsequently sent into the hospital. Potassium was noted to be 7 yesterday and patient was dialyzed. She admitted to drinking a lot of orange juice to bring up her blood sugar. Blood sugar is currently 151. And potassium this morning is 4.9. Patient feels she is above her dry weight and requesting an extra treatment for ultrafiltration. UF yesterday was 2 L. Past Medical History Past Medical History: Diabetes Mellitus, Dialysis, GERD/Reflux, Hyperlipidemia, Hypertension, Memory Impairment, Renal Disease, Thyroid Disorder Additional Past Medical History / Comment(s): hx steel syndrome left hand, . 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 neck cervical 4,5,6 fused. graft tie off 04/05/2017, eye laser surgery for diabetic retinopathy, Past Anesthesia/Blood Transfusion Reactions: No Reported Reaction Additional Past Anesthesia/Blood Transfusion Reaction / Comment(s): no blood reactions Past Psychological History: No Psychological Hx Reported Smoking Status: Former smoker Past Alcohol Use History: None Reported Past Drug Use History: None Reported - Past Family History Mother Family Medical History: Diabetes Mellitus, Hypertension Additional Family Medical History / Comment(s): colon ca Father Family Medical History: Myocardial Infarction ([place]) Medications and Allergies Home Medications Medication Instructions Recorded Confirmed Type Levothyroxine Sodium [Synthroid] 75 mcg PO DAILY 10/09/16 11/18/24 History Calcium Acetate [PhosLo] 667 mg PO TID-W/MEALS cap 02/27/19 11/18/24 Rx Latanoprost [Latanoprost 0.005%] 1 drop BOTH EYES HS 02/05/22 11/18/24 History Torsemide [Demadex] 20 mg PO BID 02/05/22 11/18/24 History Folic Acid/Vit B Complex and C 0.8 mg PO DAILY 09/15/23 11/18/24 History [Rosio-Thomas Tablet] Pregabalin [Lyrica] 75 mg PO HS 09/15/23 11/18/24 History Insulin Aspart (Niacinamide) 2 - 12 units SQ AC-TID PRN 04/28/24 11/18/24 History [Fiasp 100 Unit/ml Flextouch Pen] Clopidogrel [Plavix] 75 mg PO DAILY 07/10/24 11/18/24 History Ergocalciferol (Vitamin D2) 1,250 mcg PO TU 07/10/24 11/18/24 History [Drisdol (50,000 Iu)] carvediloL [Coreg] 3.125 mg PO BID 07/10/24 11/18/24 History Pantoprazole Sodium 40 mg PO DAILY 09/29/24 11/18/24 History Atorvastatin [Lipitor] 10 mg PO DAILY 09/30/24 11/18/24 History Insulin Degludec [Insulin Degludec 18 units SQ DAILY 11/18/24 11/18/24 History Pen (U-100)] Tirzepatide [Mounjaro] 5 mg SQ MO 11/18/24 11/18/24 History prednisoLONE ACETATE 1% OPHTH 1 drops BOTH EYES HS 11/18/24 11/18/24 History [Pred Forte 1%] Allergies Allergy/AdvReac Type Severity Reaction Status Date / Time gabapentin Allergy Rash/Hives Verified 11/18/24 11:59 escitalopram [From Lexapro] AdvReac Hallucinati Verified 11/18/24 11:59 ons lisinopril AdvReac Cough Verified 11/18/24 11:59 morphine AdvReac Hallucinati Verified 11/18/24 11:59 ons quetiapine [From Seroquel] AdvReac Hallucinati Verified 11/18/24 11:59 ons Physical Exam Vitals: Vital Signs Temp Pulse Pulse Resp BP BP BP 11/19/24 08:41 98.2 F 82 16 133/77 11/19/24 04:00 98.1 F 86 16 150/73 11/19/24 02:00 86 16 11/19/24 00:00 97.8 F 82 16 139/66 11/18/24 20:02 98.1 F 88 18 150/74 11/18/24 18:40 98.3 F 78 16 153/82 11/18/24 17:43 97.9 F 79 16 129/70 11/18/24 17:30 97.9 F 77 20 129/70 11/18/24 14:12 80 11/18/24 14:00 83 11/18/24 12:00 81 16 183/94 Pulse Ox 11/19/24 08:41 94 L 11/19/24 04:00 97 11/19/24 02:00 11/19/24 00:00 98 11/18/24 20:02 97 11/18/24 18:40 100 11/18/24 17:43 100 11/18/24 17:30 98 11/18/24 14:12 11/18/24 14:00 11/18/24 12:00 98 Intake and Output 11/18/24 11/19/24 11/19/24 22:59 06:59 14:59 Intake Total 500 Output Total 4500 Balance -4000 Intake: Hemodialysis 500 Output: Hemodialysis 2500 Hemodialysis Net Amount 2000 Other: # Voids 0 0 # Bowel Movements 0 Weight 104.326 kg 107 kg It is awake, alert oriented x 3, no acute distress Examination of the heart S1 and S2 Examination of the lungs bilateral breath sounds are heard Abdomen is soft nontender Examination of lower extremities shows no significant edema, right BKA RETREAD TECHNICIAN exam grossly intact Results - Lab Results Most recent lab results Calcium 8.5 mg/dL (8.4-10.2) 11/19/24 06:52 Magnesium 2.0 mg/dL (1.6-2.3) 11/19/24 06:52 11/19/24 06:52 11/19/24 06:52 Assessment and Plan Assessment: 1. End-stage renal disease on hemodialysis on Sunday schedule 2. Hyperkalemia associated with excessive intake of orange juice, improved postdialysis 3. Hypoglycemia associated with confusion and dose of insulin, now improved 4. Right apical density noted on CT of the chest, stable in size 5. CKD mineral bone disorder Plan: Repeat hemodialysis today for 2 hours with UF of about 2 L Patient can be discharged from nephrology standpoint post hemodialysis Patient is advised regarding avoiding orange juice and that it is preferable to use apple juice if blood sugars are low. Insulin adjustment as per primary service Thank you for the consultation. We will continue to follow the patient with you
[2024-11-19 11:49] LABS: Glucose,Whole Blood 116 mg/dL (70-110)
--- NOTE | 2024-11-19 15:08 | P.PN ---
Subjective Progress Note Date: 11/19/24 Patient is a very pleasant 69-year-old female with a past medical history of ESRD on hemodialysis Sunday//Saturdays, CAD, hypertension, hyperlipidemia, anemia of chronic disease, insulin-dependent diabetes mellitus with diabetic neuropathy and right BKA, and hypothyroidism. Patient presented to our facility from her dialysis center secondary to hypoglycemia. Patient reports she was feeling shaky, nauseous, cool and clammy. She reports that her long-acting insulin was changed yesterday to take in the evening instead of the morning and she does not remember if she took it yesterday morning and again last night, but states her blood sugars were low throughout the night and stayed in the 50s. Patient reports she was drinking orange juice and eating peanut butter but could not get her blood glucose levels to go up. Patient states she went to dialysis as scheduled and upon arrival there they checked her blood sugar, provided her with some juice and sugar and she remained low so they called EMS and she was sent to the emergency department for evaluation. Patient denies having any fevers, chills, headache, lightheadedness, dizziness, chest pain, palpitations, shortness of breath, cough or congestion, abdominal pain, episodes of vomiting, or any other complaints at this time. She reports she produces very minimal urinary output secondary to her ESRD. Patient does report right sided neck pain with hx of cervical fusion but denies having any falls or injuries. Upon arrival to our facility, patient underwent evaluation in the emergency department. Vital signs upon arrival show blood pressure 176/92, heart rate 82, respiratory rate 18, temp 98.5 F, and SpO2 of 98% on room air. EKG was completed showing normal sinus rhythm with a first-degree AV block with [place] interval of [address] cervical spine showing prior anterior cervical fusion with no acute osseous abnormality, mild degenerative disc changes throughout the remaining cervical region, and a density within the posterior right lung apex recommending further workup with a CT chest. Labs completed and reviewed. CBC showing macrocytic anemia with hemoglobin of 9.9, hematocrit 30.9, MCV of 101.3, and MCH of 32.5. BMP showing hyperkalemia with potassium of 7.0 and consistent with known ESRD with BUN of 51, creatinine of 10.55, GFR of 3. Blood glucose was 65. Calcium 9.2. Magnesium 2.2. Liver profile unremarkable. Patient was given hyperkalemia cocktail in the emergency department and admitted under our services with consultation to nephrology for management of urgent dialysis. Physical exam: Vital signs reviewed and stable. General: Nontoxic, no distress and appears stated age. Derm: Skin warm and dry, normal coloration for ethnicity. Head: Atraumatic, normocephalic and symmetric. Eyes: EOM's intact, no lid lag, and anicteric sclera Mouth: no lip lesions, mucus membranes moist Cardiovascular: regular rate and rhythm with normal S1S2, no murmur, and cap refill < 2 seconds. Permacath right anterior chest. Lungs: Respirations even, regular, and unlabored on room air. Lungs CTA shira aterally, no rhonchi, no rales, no wheezing, and no accessory muscle usage. Abdominal: soft, nontender to palpation, no guarding, no appreciable organomegaly Ext: No gross muscle atrophy, scant edema left lower extremity, right BKA with prosthesis in place. Neuro: Speech clear, face symmetrical and CN II-XII grossly intact with no noted focal neuro deficits Psych: Alert and oriented to person, place, time, and situation. Appropriate and pleasant affect. Assessment and Plan of Care: ESRD in need of dialysis Hyperkalemia, secondary to above. Resolved. Anemia of chronic disease, secondary to ESRD -Potassium initially 7.0. Patient was provided with hyperkalemia cocktail and underwent dialysis. Repeat morning potassium 4.9. -Nephrology following, discussed plan of care with Dr. Archer. Patient to undergo dialysis later today and then cleared from nephrology perspective for discharge. -Continue telemetry monitoring. -Patient educated on the importance of avoiding foods high in potassium such as the orange juice she reported drinking throughout the night. -Continue calcium acetate 667 mg 3 times daily with meals and torsemide 20 mg twice daily. Insulin-dependent diabetes melitis with hypoglycemia -Likely secondary to home medication error. Patient instructed she may resume her home long-acting insulin at 80 decreased dose of 12 units daily from previous 18 units. Patient strongly educated on the importance of monitoring blood glucose levels prior to administration of her insulin and instructed to hold if blood glucose less than 120. -Continue close monitoring of blood glucose levels along with glycemic protocol and Humalog sliding scale. Neck pain CT cervical spine showing prior anterior cervical fusion with no acute osseous abnormality, mild degenerative disc changes throughout the remaining cervical region, and a density within the posterior right lung apex recommending further workup with a CT chest. CT chest completed and reviewed CT revealed a lobulated density in the posterior right lung apex measuring 2.4 x 1.3 cm, this was reported to be present on previous CT exams completed on 10/19/2023 and 02/04/2022 and is reported to be stable with no reported new changes, likely representing fibrosis. Recommend outpatient follow-up with order dispatcher for further long- term monitoring and completion of pulmonary function tests. Hypertension CAD Hyperlipidemia Monitor vital signs and continue daily medication regimen with carvedilol 3.125 mg twice daily, atorvastatin 10 mg daily, Plavix 75 mg daily, and torsemide 20 mg twice daily. Hypothyroidism Continue daily medication regimen with levothyroxine 75 mcg daily. Data and imaging reviewed: Morning labs reviewed. CBC showing hemoglobin 8.8, MCV 100.0, and MCH of 32.1. BMP showing resolution of hyperkalemia with morning potassium of 4.9. BUN 29, creatinine 8.05, GFR of 5. Blood glucose 109. Hemoglobin A1c 7.1%. Liver profile unremarkable with exception of hypoalbuminemia with albumin of 3.2 Vital signs reviewed. Blood pressure 133/77, heart rate 82, respiratory rate 16, temp 98.2 F, and SpO2 of 94% on room air. CODE STATUS: Full code DVT prophylaxis: Heparin Discussed with: Patient, RN, and suggest Anticipated discharge date: Pending completion of dialysis Anticipated discharge place: Home Patient was seen independently by Nurse Practitioner. This document was prepared using [employer] dictation software. Please allow for errors in fixed wing pilot while rare they do occur. Jimmy Walsh NP rendered care for this patient independently, reviewed the findings and plan as documented in the note above and agree with plan. I did not physically speak with or examine the patient on this date. Objective - Vital Signs Vital signs: Vital Signs Temp 98.2 F 11/19/24 08:41 Pulse 82 11/19/24 08:41 Resp 16 11/19/24 08:41 BP 133/77 11/19/24 08:41 Pulse Ox 94 L 11/19/24 08:41 FiO2 Intake & Output 11/18/24 11/19/24 11/19/24 18:59 06:59 18:59 Intake Total 500 Output Total 4500 Balance -4000 Weight 104.326 kg 107 kg Intake: Hemodialysis 500 Output: Hemodialysis 2500 Hemodialysis Net Amount 2000 Other: # Voids 0 # Bowel Movements 0 - Labs CBC & Chem 7: 11/19/24 06:52 11/19/24 06:52 Labs: Abnormal Lab Results - Last 24 Hours (Table) 11/18/24 11/18/24 11/18/24 Range/Units 11:39 11:39 20:08 RBC 3.05 L (4.10-5.20) 10*6/uL Hgb 9.9 L (12.0-15.0) g/dL Hct 30.9 L (37.2-46.3) % MCV 101.3 H (80.0-97.0) fL MCH 32.5 H (27.0-32.0) pg MPV 12.5 H (9.5-12.2) fL Potassium 7.0 H* (3.5-5.1) mmol/L BUN 51 H (7-17) mg/dL Creatinine 10.55 H* (0.52-1.04) mg/dL Glucose 65 L (74-99) mg/dL POC Glucose (mg/dL) 145 H (70-110) mg/dL Total Protein (6.3-8.2) g/dL Albumin (3.5-5.0) g/dL 11/18/24 11/19/24 11/19/24 Range/Units 21:36 00:21 06:52 RBC 2.74 L (4.10-5.20) 10*6/uL Hgb 8.8 L (12.0-15.0) g/dL Hct 27.4 L (37.2-46.3) % MCV 100.0 H (80.0-97.0) fL MCH 32.1 H (27.0-32.0) pg MPV (9.5-12.2) fL Potassium (3.5-5.1) mmol/L BUN (7-17) mg/dL Creatinine (0.52-1.04) mg/dL Glucose (74-99) mg/dL POC Glucose (mg/dL) 140 H 135 H (70-110) mg/dL Total Protein (6.3-8.2) g/dL Albumin (3.5-5.0) g/dL 11/19/24 11/19/24 Range/Units 06:52 08:22 RBC (4.10-5.20) 10*6/uL Hgb (12.0-15.0) g/dL Hct (37.2-46.3) % MCV (80.0-97.0) fL MCH (27.0-32.0) pg MPV (9.5-12.2) fL Potassium (3.5-5.1) mmol/L BUN 29 H (7-17) mg/dL Creatinine 8.05 H* (0.52-1.04) mg/dL Glucose 109 H (74-99) mg/dL POC Glucose (mg/dL) 151 H (70-110) mg/dL Total Protein 5.9 L (6.3-8.2) g/dL Albumin 3.2 L (3.5-5.0) g/dL
--- NOTE | 2024-11-19 15:14 | P.DS ---
Providers Date of admission: 11/18/24 13:20 Expected date of discharge: 11/19/24 Attending physician: Jose Augustine Consults: 11/18/24 13:12 Consult Physician Routine Consulting Provider: Zoey Archer Consult Reason/Comments: Hyperkalemia, missed dialysis Do you want consulting provider notified?: Yes Primary care physician: Raymond Spencer MD Hospital Course: Discharge Diagnosis: ESRD Hyperkalemia, secondary to above. Resolved. Potassium initially 7.0. Patient was provided with hyperkalemia cocktail and underwent dialysis. Repeat morning potassium 4.9 and patient receiving another dialysis treatment today prior to discharge. Anemia of chronic disease, secondary to ESRD Insulin-dependent diabetes melitis with hypoglycemia. Likely secondary to home medication error as patient is unclear if she took her long-acting insulin twice. Patient instructed she may resume her home long-acting insulin at a decreased dose of 12 units daily from previous 18 units daily. Patient strongly educated on the importance of monitoring blood glucose levels prior to administration of her insulin and instructed to hold insulin if blood glucose le ss than 120 and notify her editor greeting card for further instructions. Neck pain. CT cervical spine showing prior anterior cervical fusion with no acute osseous abnormality, mild degenerative disc changes throughout the remaining cervical region, and a density within the posterior right lung apex recommending further workup with a CT chest. Lobulated density in posterior right lung apex. CT chest completed and reviewed CT revealed a lobulated density in the posterior right lung apex measuring 2.4 x 1.3 cm, this was reported to be present on previous CT exams completed on 10/19/2023 and 02/04/2022 and is reported to be stable with no reported new changes, likely representing fibrosis. Recommend outpatient follow-up with wallpaper installer for further long-term monitoring and completion of pulmonary function tests. Hypertension. Continue daily medication regimen with carvedilol 3.125 mg twice daily and torsemide 20 mg twice daily.. CAD. Continue cardiac medication regimen with carvedilol 3.125 mg twice daily, atorvastatin 10 mg daily, Plavix 75 mg daily, and torsemide 20 mg twice daily. Hyperlipidemia. Continue atorvastatin 10 mg daily. Hypothyroidism. Continue daily medication regimen with levothyroxine 75 mcg daily. Hospital Course: Patient is a very pleasant 69-year-old female with a past medical history of ESRD on hemodialysis Sunday//Saturdays, CAD, hypertension, hyperlipidemia, anemia of chronic disease, insulin-dependent diabetes mellitus with diabetic neuropathy and right BKA, and hypothyroidism. Patient presented to our facility from her dialysis center secondary to hypoglycemia. Patient reports she was feeling shaky, nauseous, cool and clammy. She reports that her long-acting insulin was changed yesterday to take in the evening instead of the morning and she does not remember if she took it yesterday morning and again last night, but states her blood sugars were low throughout the night and stayed in the 50s. Patient reports she was drinking orange juice and eating peanut butter but could not get her blood glucose levels to go up. Patient states she went to dialysis as scheduled and upon arrival there they checked her blood sugar, provided her with some juice and sugar and she remained low so they called EMS and she was sent to the emergency department for evaluation. Patient denies having any fevers, chills, headache, lightheadedness, dizziness, chest pain, palpitations, shortness of breath, cough or congestion, abdominal pain, episodes of vomiting, or any other complaints at this time. She reports she produces very minimal urinary output secondary to her ESRD. Patient does report right sided neck pain with hx of cervical fusion but denies having any falls or injuries. Upon arrival to our facility, patient underwent evaluation in the emergency department. Vital signs upon arrival show blood pressure 176/92, heart rate 82, respiratory rate 18, temp 98.5 F, and SpO2 of 98% on room air. EKG was completed showing normal sinus rhythm with a first-degree AV block with [place] interval of [address] cervical spine showing prior anterior cervical fusion with no acute osseous abnormality, mild degenerative disc changes throughout the remaining cervical region, and a density within the posterior right lung apex recommending further workup with a CT chest. Labs completed and reviewed. CBC showing macrocytic anemia with hemoglobin of 9.9, hematocrit 30.9, MCV of 101.3, and MCH of 32.5. BMP showing hyperkalemia with potassium of 7.0 and consistent with known ESRD with BUN of 51, creatinine of 10.55, GFR of 3. Blood glucose was 65. Calcium 9.2. Magnesium 2.2. Liver profile unremarkable. Patient was given hyperkalemia cocktail in the emergency department and admitted under our services with consultation to nephrology for management of urgent dialysis. Potassium initially 7.0. Patient was provided with hyperkalemia cocktail and underwent dialysis. Repeat morning potassium 4.9 and patient receiving another dialysis treatment today prior to discharge. Long-acting insulin was held as patient expressed concerns that she is unclear if she took her long-acting insulin twice in the day prior to arrival. Patient has had no further episodes of hypoglycemia. Patient instructed she may resume her home long-acting insulin at a decreased dose of 12 units daily from previous 18 units. Patient strongly educated on the importance of monitoring blood glucose levels prior to administration of her insulin and instructed to hold if blood glucose less than 120. Physical exam: Vital signs reviewed and stable. General: Nontoxic, no distress and appears stated age. Derm: Skin warm and dry, normal coloration for ethnicity. Head: Atraumatic, normocephalic and symmetric. Eyes: EOM's intact, no lid lag, and anicteric sclera Mouth: no lip lesions, mucus membranes moist Cardiovascular: regular rate and rhythm with normal S1S2, no murmur, and cap refill < 2 seconds. Permacath right anterior chest. Lungs: Respirations even, regular, and unlabored on room air. Lungs CTA bilaterally, no rhonchi, no rales, no wheezing, and no accessory muscle usage. Abdominal: soft, nontender to palpation, no guarding, no appreciable organomegaly Ext: No gross muscle atrophy, scant edema left lower extremity, right BKA with prosthesis in place. Neuro: Speech clear, face symmetrical and CN II-XII grossly intact with no noted focal neuro deficits Psych: Alert and oriented to person, place, time, and situation. Appropriate and pleasant affect. A total of 37 minutes of time were spent preparing this complex discharge summary. Pt was discharged on 11/19/2024 at 3:01 PM. Patient was seen independently by Nurse Practitioner. This document was prepared using [employer] dictation software. Please allow for errors in paintings restorer while rare they do occur. Jimmy Walsh NP rendered care for this patient independently, reviewed the findings and plan as documented in the note above. I did not physically speak with or examine the patient on this date. Patient Condition at Discharge: Stable Plan - Discharge Summary Discharge Rx Participant: Yes New Discharge Prescriptions: Continue Levothyroxine Sodium [Synthroid] 75 mcg PO DAILY Calcium Acetate [PhosLo] 667 mg PO TID-W/MEALS cap Torsemide [Demadex] 20 mg PO BID Insulin Aspart (Niacinamide) [Fiasp 100 Unit/ml Flextouch Pen] 2 - 12 units SQ AC-TID PRN PRN Reason: Blood Sugar - High carvediloL [Coreg] 3.125 mg PO BID Ergocalciferol (Vitamin D2) [Drisdol (50,000 Iu)] 1,250 mcg PO TU Clopidogrel [Plavix] 75 mg PO DAILY prednisoLONE ACETATE 1% OPHTH [Pred Forte 1%] 1 drops BOTH EYES HS Latanoprost [Latanoprost 0.005%] 1 drop BOTH EYES HS Pregabalin [Lyrica] 75 mg PO HS Folic Acid/Vit B Complex and C [Rosio-Thomas Tablet] 0.8 mg PO DAILY Pantoprazole Sodium 40 mg PO DAILY Atorvastatin [Lipitor] 10 mg PO DAILY Tirzepatide [Mounjaro] 5 mg SQ MO Changed Insulin Degludec [Insulin Degludec Pen (U-100)] 12 units SQ DAILY #0 Discharge Medication List Levothyroxine Sodium [Synthroid] 75 mcg PO DAILY 10/09/16 [History] Calcium Acetate [PhosLo] 667 mg PO TID-W/MEALS cap 02/27/19 [Rx] Latanoprost [Latanoprost 0.005%] 1 drop BOTH EYES HS 02/05/22 [History] Torsemide [Demadex] 20 mg PO BID 02/05/22 [History] Folic Acid/Vit B Complex and C [Rosio-Thomas Tablet] 0.8 mg PO DAILY 09/15/23 [History] Pregabalin [Lyrica] 75 mg PO HS 09/15/23 [History] Insulin Aspart (Niacinamide) [Fiasp 100 Unit/ml Flextouch Pen] 2 - 12 units SQ AC-TID PRN 04/28/24 [History] Clopidogrel [Plavix] 75 mg PO DAILY 07/10/24 [History] Ergocalciferol (Vitamin D2) [Drisdol (50,000 Iu)] 1,250 mcg PO TU 07/10/24 [History] carvediloL [Coreg] 3.125 mg PO BID 07/10/24 [History] Pantoprazole Sodium 40 mg PO DAILY 09/29/24 [History] Atorvastatin [Lipitor] 10 mg PO DAILY 09/30/24 [History] Tirzepatide [Mounjaro] 5 mg SQ MO 11/18/24 [History] prednisoLONE ACETATE 1% OPHTH [Pred Forte 1%] 1 drops BOTH EYES HS 11/18/24 [History] Insulin Degludec [Insulin Degludec Pen (U-100)] 12 units SQ DAILY #0 11/19/24 [Rx] Follow up Appointment(s)/Referral(s): Judd Fraser MD [STAFF PHYSICIAN] - 1 Week Zoey Archer MD [STAFF PHYSICIAN] - 1 Week Raymond Spencer MD [Primary Care Provider] - 1-2 days Patient Instructions/Handouts: Dialysis Diet (DC), Hypoglycemia in a Person with Diabetes (DC), Hyperkalemia (DC), What to Do if Your Blood Sugar is Low (DC) Activity/Diet/Wound Care/Special Instructions: Activity: As tolerated. Take breaks as needed. Diet: Heart healthy, carb consistent diet renal diet. Avoid foods high in potassium as we discussed in detail at bedside. Special Instructions: Take all of your medications as directed and remember to keep all of your doctor's appointments and follow-up as needed. Your long-acting insulin was decreased from 18 units daily down to 12 units daily secondary to your episodes of hypoglycemia. It is recommended that you resume taking this medication tomorrow morning as scheduled, please monitor your blood sugar prior to administration of insulin and if your blood glucose is less than 120 recommend holding unless further instructed by your editor greeting card. You will also need to follow-up outpatient with your editor greeting card as discussed for continued management of your insulin-dependent diabetes. As discussed with you at bedside, the CT revealed a lobulated density in the posterior right lung apex measuring 2.4 x 1.3 cm, this was reported to be present on previous CT exams completed on 10/19/2023 and 02/04/2022 and is reported to be stable with no reported new changes, likely representing fibrosis. Recommend outpatient follow-up with wallpaper installer for further long- term monitoring and completion of pulmonary function tests. Thank you for allowing us to participate in your care, it was truly a pleasure having you for our patient!!! Discharge Disposition: HOME SELF-CARE
[2024-11-19 16:08] LABS: Glucose,Whole Blood 202 mg/dL (70-110)
[2024-11-19 16:10] LABS: Glucose,Whole Blood 130 mg/dL (70-110)
[2024-11-19 17:40] VITALS: RESP 18
[2024-11-19 20:19] VITALS: BP 122/73
[2024-11-19 20:31] VITALS: PULSE 84; TEMP 98
== END 2024-11-19 21:34 | disposition home or self-care (01) ==
LOC: EC 10:56 → 3SCARD 13:20
PROVIDERS: ADMIT Student in an Organized Health Care Education/Training Program; ATTEND Student in an Organized Health Care Education/Training Program
DX: E11.22 Type 2 diabetes mellitus with diabetic chronic kidney disease (principal); E11.649 Type 2 diabetes mellitus with hypoglycemia without coma; I12.0 Hypertensive chronic kidney disease with stage 5 chronic kidney disease or end stage renal disease; N18.6 End stage renal disease; E78.5 Hyperlipidemia, unspecified; K21.9 Gastro-esophageal reflux disease without esophagitis; E11.40 Type 2 diabetes mellitus with diabetic neuropathy, unspecified; N25.0 Renal osteodystrophy; D63.1 Anemia in chronic kidney disease; E87.5 Hyperkalemia; S16.1XXA Strain of muscle, fascia and tendon at neck level, initial encounter; I25.10 Atherosclerotic heart disease of native coronary artery without angina pectoris; E03.9 Hypothyroidism, unspecified; X58.XXXA Exposure to other specified factors, initial encounter; Z87.891 Personal history of nicotine dependence; Z99.2 Dependence on renal dialysis; Z79.890 Hormone replacement therapy; Z79.899 Other long term (current) drug therapy; Z79.02 Long term (current) use of antithrombotics/antiplatelets; Z79.4 Long term (current) use of insulin; Z88.5 Allergy status to narcotic agent; Z83.3 Family history of diabetes mellitus
CPT/HCPCS: 36415; 71250; 72125; 80053; 83036; 83735; 84132; 85025; 90935; 93005; 96372; 96374; 96375; 99291